=== PATIENT | female | born 1940 | race Caucasian/White ===

== ENCOUNTER 2016-07-21 20:50 | Inpatient (IN) | payer OTHER ==
[~2016-07-21] VITALS: Ht 157.5 cm; Wt 90.7 kg
[~2016-07-21 20:50] MED LIST: ALBU1AER9 INH; ANSHCCR PR; ASPI81TA28 PO; CALC-354 PO; CLBCRM30 EXT; FLUO20CA36 PO; LORA0.5T12 PO; SIMV40TA4 PO; SYMIN160 INH; TPRSR/50 PO; ZNT/150 PO
[2016-07-21] MEDS ORDERED: ALBU18002 INH (21:31)
[2016-07-21] MEDS ORDERED: CHOL2000 PO (21:31)
[2016-07-21] MEDS ORDERED: METHYLPREDNISOLONE 125 MG VIAL IV STA (22:10)
[2016-07-21] MEDS ORDERED: ALBUT/IPRATROP 3MG/0.5MG NEB 3 ML VIAL INH STA (22:10)
[2016-07-21] MEDS ORDERED: ALBUT/IPRATROP 3MG/0.5MG NEB 3 ML VIAL INH ONE (22:45)
[2016-07-21 22:46] LABS: BASO % 0.2 %; BASO ABS # 0.03 K/uL (0-0.2); COMPLETE YES; EOS % 0.4 %; HEMATOCRIT 39.9 % (37-47); IG% 0.2 %; LYMPH % 9.7 %; LYMPH ABS # 1.25 K/uL (1.2-3.4); MEAN CELL VOLUME 93.9 fL (80-100); MEAN CORPUSCULAR HEMOGLOBIN 31.5 pg (25-34); MEAN CORPUSCULAR HGB CONC 33.6 g/dl (32-36); MONO % 9.1 %; NEUT % 80.4 %; PLATELET COUNT 219 K/uL (130-400); RED BLOOD COUNT 4.25 M/uL (4.2-5.4); WHITE BLOOD COUNT 12.88 K/uL (4.8-10.8)
[2016-07-21 22:57] LABS: PARTIAL THROMBOPLASTIN RATIO 1.1; PROTHROMBIN TIME (PATIENT) 10.6 SECONDS (9.0-12.0)
--- NOTE | 2016-07-21 22:58 | DIAGNOSTIC IMAGING REPORT ---
CHEST ONE VIEW PORTABLE CLINICAL HISTORY: Sepsis COMPARISON STUDY: December 09, 2010 FINDINGS: The heart is mildly enlarged. There is mild elevation of the interstitium. This could be related to technical factors given the AP portable technique and the patient's body habitus. There is no lobar consolidation. If symptoms persist, a PA and lateral study might be of benefit in follow-up[ IMPRESSION: Mild interstitial prominence, a finding which may have been accentuated by technical factors.. No evidence of lobar consolidation Electronically signed by: Giovanni Casarez M.D. 07/21/2016 10:57 PM Dictated Date/Time: 07/21/2016 10:55 PM
[2016-07-21 23:02] VITALS: PULSE 88; O2SAT 91
[2016-07-21 23:03] LABS: BUN/CREATININE RATIO 20.9 (10-20); CALCIUM 8.9 mg/dl (8.5-10.1); POTASSIUM 4.1 mmol/L (3.5-5.1)
[2016-07-21] MEDS ORDERED: LEVAQUIN 750MG / 150ML D5W IV STA (23:03)
[2016-07-21 23:08] LABS: ALB/GLOB RATIO 0.9 (0.9-2); CKMB/CK RATIO 1.3 (0-3.0)
[2016-07-22] VITALS (11 sets, daily range): BP systolic 139–179; BP diastolic 56–81; PULSE 55–93; TEMP 36.4–36.7; O2SAT 94–98; Ht 157.5 cm; Wt 90.7 kg
[2016-07-22] MEDS ORDERED: DILTIAZEM HCL 5 MG/ML 5 ML VIAL ONE (00:19)
[2016-07-22] MEDS ORDERED: DILTIAZEM HCL 5 MG/ML 5 ML VIAL IV STA (00:20)
[2016-07-22] MEDS ORDERED: DILTIAZEM BOLUS / DRIP IV STA ×2 (00:35→01:55)
[2016-07-22] MEDS ORDERED: DILTIAZEM HCL INJ 125 MG in DEXTROSE 5% 100ML IV PRN ×2 (00:45→03:15)
[2016-07-22 00:53] LABS: URINE APPEARANCE CLOUDY (CLEAR); URINE BILIRUBIN NEG (NEG); URINE COLOR YELLOW; URINE EPITHELIAL CELL AUTO >30 /lpf (0-5); URINE NITRITE NEG (NEG); URINE SPECIFIC GRAVITY 1.025 (1.000-1.030); UROBILINOGEN NEG (NEG); ZZUR CULT IF INDIC CLEAN CATCH YES
[2016-07-22 01:00] LABS: MANUAL MICROSCOPIC REQUIRED? NO; REVIEW REQ? NO
[2016-07-22 01:19] LABS: INFLUENZA A PCR Neg for Influ A (NEG); INFLUENZA B PCR Neg for Influ B (NEG)
[2016-07-22] MEDS ORDERED: HYDROCODONE/HOMATROPINE SYRUP 5MG/1.5MG 5ML UDP PO STA (01:55)
[2016-07-22] MEDS ORDERED: HYDROCODONE/HOMATROPINE SYRUP 5MG/1.5MG 5ML UDP PO PRN (02:00)
[2016-07-22] MEDS ORDERED: ACETAMINOPHEN 500 MG TAB PO PRN (02:00)
[2016-07-22] MEDS: LEVALBUTEROL 1.25MG/3ML NEB INH SCH ×7 (03:00→23:44)
[2016-07-22] MEDS ORDERED: APIXABAN 2.5 MG TAB PO STA (03:10)
[2016-07-22] MEDS: METHYLPREDNISOLONE IV 20 MG in SYRINGE 0 ML IV SCH ×4 (03:53→20:52)
--- NOTE | 2016-07-22 04:30 | EMERGENCY ROOM VISIT NOTE ---
History First contact with patient: 22:02 Chief Complaint: RESPIRATORY PROBLEMS Stated Complaint: PAF, COPD WITH EXACERBATION, ACUTE BRONCHITIS, UTI Nursing Triage Summary: Increasing SOB over the last two days. History of Present Illness The patient is a 75 year old female who presents to the Emergency Room with complaints of cough, congestion, wheezing, shortness of breath with body aches and fever and chills for the past 2 days. Patient states she's extremely short of breath with any type of exertion. She does have asthma. No recent antibiotics. Patient denies chest pain, Abdominal pain, vomiting, diarrhea, headache, neck stiffness, sore throat. She is tolerating by mouth fluids and food. No history of CHF or [place]. Review of Systems See HPI for pertinent positives & negatives. A total of 10 systems reviewed and were otherwise negative. Past Medical/Surgical History Medical Problems: (1) PAF, COPD WITH EXACERGATION.,ACUTE BRONCHITIS,UTI Social History Smoking Status: Former Smoker Alcohol Use: none Drug Use: none Marital Status: single Housing Status: lives alone Current/Historical Medications Scheduled Albuterol Sulfate (Proair Respiclick), 2 PUFF INH DAILY Aspirin (Aspirin Ec), 81 MG PO DAILY Budesonide/Formoterol Fumarate (Symbicort 160/4.5 Inhaler), 2 PUFFS INH BID Calcium Carbonate-Cholecalcife (Caltrate 600+D), 2 TAB PO QAM Cholecalciferol (Vitamin D3), 1 CAP PO DAILY Fluoxetine HCl (Fluoxetine HCl), 1 CAP PO DAILY Metoprolol Succinate (Metoprolol Succinate ER), 1 TAB PO DAILY Ranitidine Hcl (Zantac), 150 MG PO DAILY Simvastatin (Zocor), 1 TAB PO HS Scheduled PRN Lorazepam (Lorazepam), 1 TAB PO BID PRN for Anxiety/Agitation Allergies Coded Allergies: Penicillins (Verified Allergy, Mild, GI SYMPTOMS, 07/21/16) Physical Exam Vital Signs Date Time Temp Pulse Resp B/P Pulse Ox O2 Delivery O2 Flow Rate FiO2 07/22/16 00:56 81 20 130/98 94 Nasal Cannula 3.0 07/22/16 00:26 135 22 140/71 94 Room Air 07/22/16 00:10 156 26 133/115 94 Nasal Cannula 3.0 07/22/16 00:01 89 Room Air 07/22/16 00:00 157 07/21/16 23:32 87 22 173/92 99 Nebulizer 8.0 07/21/16 23:02 88 22 91 Room Air 07/21/16 22:41 91 07/21/16 22:26 Room Air 07/21/16 20:55 37.0 86 22 191/84 91 Room Air Pain Rating (0-10): 0 Physical Exam PHYSICAL EXAM: Vital Signs: Reviewed Nurse's notes. Oxygen saturation was 91% on room air. GENERAL: Pleasant elderly female with audible wheeze, Alert, oriented and coherent. The patient is barely able to speak in complete sentences. NECK: Supple, non-tender. CHEST: Symmetrical expansion. no retractions mild accessory muscle use. HEART: Regular rate and normal heart sounds, no murmur, gallop or rub. LUNGS: Breath sounds equal but significantly diminished in intensity on both sides. Bilateral wheezes heard but no rales or pleuritic rub. SKIN: The skin was without rashes, erythema, edema, or bruising. There is no tenting of the skin. Capillary reflex less than 2 seconds. HEAD: Normocephalic atraumatic. EARS: External auditory canals clear, tympanic membranes pearly gomez without erythema or effusion bilaterally. EYES: Pupils equal round and reactive to light and accommodation. Conjunctivae without injection, sclerae without icterus. Extraocular movements intact. NOSE: Patent, turbinates without inflammation or discharge. No sinus tenderness. MOUTH: Mucous membranes moist. Tonsils are not enlarged. Pharynx without erythema or exudate. Uvula midline. Airway patent. Tongue does not deviate. ABDOMEN: Positive bowel sounds x 4. Normal tympanic percussion. Soft, nontender, without masses or organomegaly. Esparza sign negative. No guarding or rebound tenderness. MUSCULOSKELETAL: No muscle atrophy, erythema, noted. . NEURO: Patient was alert and oriented to person place and time. Normal sensation to light and sharp touch. No focal neurological deficits. Medical Decision & Procedures Laboratory Results 07/21/16 22:30 Red Blood Count 4.25, Mean Corpuscular Volume 93.9, Mean Corpuscular Hemoglobin 31.5, Mean Corpuscular Hemoglobin Concent 33.6, Mean Platelet Volume 11.0, Neutrophils (%) (Auto) 80.4, Lymphocytes (%) (Auto) 9.7, Monocytes (%) (Auto) 9.1, Eosinophils (%) (Auto) 0.4, Basophils (%) (Auto) 0.2, Neutrophils # (Auto) 10.35, Lymphocytes # (Auto) 1.25, Monocytes # (Auto) 1.17, Eosinophils # (Auto) 0.05, Basophils # (Auto) 0.03 07/21/16 22:30 Test 07/21/16 22:30 07/21/16 22:36 07/21/16 23:34 07/22/16 00:05 White Blood Count 12.88 K/uL (4.8-10.8) Red Blood Count 4.25 M/uL (4.2-5.4) Hemoglobin 13.4 g/dL (12.0-16.0) Hematocrit 39.9 % (37-47) Mean Corpuscular Volume 93.9 fL (80-100) Mean Corpuscular Hemoglobin 31.5 pg (25-34) Mean Corpuscular Hemoglobin Concent 33.6 g/dl (32-36) Platelet Count 219 K/uL (130-400) Mean Platelet Volume 11.0 fL (7.4-10.4) Neutrophils (%) (Auto) 80.4 % Lymphocytes (%) (Auto) 9.7 % Monocytes (%) (Auto) 9.1 % Eosinophils (%) (Auto) 0.4 % Basophils (%) (Auto) 0.2 % Neutrophils # (Auto) 10.35 K/uL (1.4-6.5) Lymphocytes # (Auto) 1.25 K/uL (1.2-3.4) Monocytes # (Auto) 1.17 K/uL (0.11-0.59) Eosinophils # (Auto) 0.05 K/uL (0-0.5) Basophils # (Auto) 0.03 K/uL (0-0.2) RDW Standard Deviation 50.0 fL (36.4-46.3) RDW Coefficient of Variation 14.6 % (11.5-14.5) Immature Granulocyte % (Auto) 0.2 % Immature Granulocyte # (Auto) 0.03 K/uL (0.00-0.02) Prothrombin Time 10.6 SECONDS (9.0-12.0) Prothromb Time International Ratio 1.0 (0.9-1.1) Activated Partial Thromboplast Time 28.0 SECONDS (21.0-31.0) Partial Thromboplastin Ratio 1.1 Anion Gap 10.0 mmol/L (3-11) Est Creatinine Clear Calc Drug Dose 49.6 ml/min Estimated GFR () 62.9 Estimated GFR (Non- 54.3 BUN/Creatinine Ratio 20.9 (10-20) Calcium Level 8.9 mg/dl (8.5-10.1) Magnesium Level 2.0 mg/dl (1.8-2.4) Total Bilirubin 0.4 mg/dl (0.2-1) Aspartate Amino Transf (AST/SGOT) 25 U/L (15-37) Alanine Aminotransferase (ALT/SGPT) 26 U/L (12-78) Alkaline Phosphatase 64 U/L (45-117) Total Creatine Kinase 121 U/L (26-192) Creatine Kinase MB 1.6 ng/ml (0.5-3.6) Creatine Kinase MB Ratio 1.3 (0-3.0) Troponin I 0.023 ng/ml (0-0.045) Pro-B-Type Natriuretic Peptide 2258 pg/ml (0-1800) Total Protein 7.4 gm/dl (6.4-8.2) Albumin 3.6 gm/dl (3.4-5.0) Globulin 3.8 gm/dl (2.5-4.0) Albumin/Globulin Ratio 0.9 (0.9-2) Bedside Lactic Acid Venous 0.86 mmol/L (0.90-1.70) Influenza Type A (RT-PCR) Neg for Influ A (NEG) Influenza Type B (RT-PCR) Neg for Influ B (NEG) Urine Color YELLOW Urine Appearance CLOUDY (CLEAR) Urine pH 5.0 (4.5-7.5) Urine Specific Gurley 1.025 (1.000-1.030) Urine Protein TRACE (NEG) Urine Glucose (UA) NEG (NEG) Urine Ketones TRACE (NEG) Urine Occult Blood TRACE (NEG) Urine Nitrite NEG (NEG) Urine Bilirubin NEG (NEG) Urine Urobilinogen NEG (NEG) Urine Leukocyte Esterase SMALL (NEG) Urine WBC (Auto) 10-30 /hpf (0-5) Urine RBC (Auto) 0-4 /hpf (0-4) Urine Hyaline Casts (Auto) 1-5 /lpf (0-5) Urine Epithelial Cells (Auto) >30 /lpf (0-5) Urine Bacteria (Auto) NEG (NEG) Medications Administered Medications (Trade) Dose Ordered Sig/Jackie Route Start Time Stop Time Status Last Admin Dose Admin Methylprednisolone Sodium Succinate (Solu-Medrol IV) 125 mg NOW STAT IV 07/21/16 22:10 07/21/16 22:12 DC 07/21/16 22:19 125 MG Albuterol/ Ipratropium (Duoneb) 3 ml NOW STAT INH 07/21/16 22:10 07/21/16 22:12 DC 07/21/16 22:19 3 ML Albuterol/ Ipratropium (Duoneb) 12 ml ONE ONCE INH 07/21/16 22:45 07/21/16 22:46 DC 07/21/16 23:02 12 ML Levofloxacin (Levaquin / D5W) 750 mg NOW STAT IV 07/21/16 23:03 07/21/16 23:05 DC 07/21/16 23:32 750 MG Diltiazem HCl (Cardizem Inj) 20 mg NOW STAT IV 07/22/16 00:20 07/22/16 00:21 DC 07/22/16 00:31 10 MG Hydrocodone Bit/ Homatropine Methylb (Hycodan Syrup) 5 ml NOW STAT PO 07/22/16 01:55 07/22/16 02:09 DC 07/22/16 02:38 5 ML ED Course Prior records/ancillary studies reviewed. Triage Nursing notes reviewed. Additional history obtained from the family. The patient's history was concerning for respiratory difficulties. Differential diagnosis: Etiologies such as infections, reactive airway disease, pneumonia, pneumothorax , COPD, CHF, cardiac ischemia, pulmonary embolism, musculoskeletal, gastrointestinal, as well as others were entertained. Physical examination: As above. ER treatment provided: IV Lasix, steroids, Levaquin, Cardizem On reassessment the patient felt better. Diagnostic interpretation by me: The electrocardiogram was negative for acute ischemic or pathologic change. Normal sinus, normal intervals, multiple PVCs, interpretation normal sinus rhythm with frequent PVCs interpreted by myself After the patient finished her nebulizer she went to an abnormal rhythm. EKG: Irregularly irregular with no acute ST-T changes. Impression atrial fibrillation with RVR After the Cardizem and the patient broke and went back to normal sinus rhythm. EKG showed normal sinus rhythm per my interpretation The labs revealed leukocytosis. Negative flu. Negative troponin Imaging studies: Chest x-ray as above. CHEST ONE VIEW PORTABLE CLINICAL HISTORY: Sepsis COMPARISON STUDY: December 09, 2010 FINDINGS: The heart is mildly enlarged. There is mild elevation of the interstitium. This could be related to technical factors given the AP portable technique and the patient's body habitus. There is no lobar consolidation. If symptoms persist, a PA and lateral study might be of benefit in follow-up[ IMPRESSION: Mild interstitial prominence, a finding which may have been accentuated by technical factors.. No evidence of lobar consolidation Electronically signed by: Giovanni Casarez M.D. 07/21/2016 10:57 PM Consultation: A consultation was placed with Dr. Bud Haque. The case was discussed and diagnostics were reviewed. The patient was evaluated in the ER for further treatment. This appears to be consistent with asthma exacerbation with bronchitis with possible developing pneumonia and was started on antibiotics who went into A. fib with RVR who broke with Cardizem. Patient will be evaluated by medicine for possible admission. Patient was still extremely short of breath. She is given several nebulizers and steroids. Her pulse ox is 89% on room air. Her heart rate did improve after the Cardizem. By the evaluation outlined above emergent etiologies such as CHF, cardiac ischemia, pulmonary embolism, pneumothorax, musculoskeletal, serious bacterial infections, as well as others were deemed relatively unlikely. The pt informed about the findings as listed above. All questions were answered and pleased with the treatment. Case reviewed with my attending Medical Decision As above Impression Primary Impression: Atrial fibrillation with RVR Additional Impression: Asthma exacerbation Critical Care I have personally spent greater than 30 minutes of critical care time in the direct management of this patient. This includes bedside care, interpretation of diagnostic studies, and testing, discussion with consultants, patient, and family members, and other required patient management activities. This 30 minutes is in excess of all separately billable procedures. Departure Information Dispostion Admitted as an inpatient Condition FAIR Referrals Tanner De Leon M.D. (PCP) Forms WORK / SCHOOL INSTRUCTIONS, HOME CARE DOCUMENTATION FORM, IMPORTANT VISIT INFORMATION Patient Instructions My [facility] Problem Qualifiers
[2016-07-22 06:19] LABS: BASO % 0.1 %; BASO ABS # 0.01 K/uL (0-0.2); COMPLETE YES; HEMATOCRIT 39.3 % (37-47); IG% 0.4 %; LYMPH % 6.8 %; LYMPH ABS # 0.58 K/uL (1.2-3.4); MEAN CELL VOLUME 94.2 fL (80-100); MEAN CORPUSCULAR HEMOGLOBIN 30.7 pg (25-34); MEAN CORPUSCULAR HGB CONC 32.6 g/dl (32-36); MONO % 0.9 %; NEUT % 91.8 %; PLATELET COUNT 208 K/uL (130-400); RED BLOOD COUNT 4.17 M/uL (4.2-5.4); WHITE BLOOD COUNT 8.57 K/uL (4.8-10.8)
[2016-07-22 06:49] LABS: CALCIUM 8.5 mg/dl (8.5-10.1); CREATININE 1.1 mg/dl (0.60-1.20); POTASSIUM 4.2 mmol/L (3.5-5.1)
[2016-07-22 06:51] LABS: ALB/GLOB RATIO 0.9 (0.9-2)
--- NOTE | 2016-07-22 07:14 | HISTORY & PHYSICAL EXAMINATION ---
DATE OF ADMISSION: 07/22/2016 A 75-year-old female admitted through the Emergency Room with multiple problems including atrial fibrillation with rapid ventricular response, acute bronchitis and acute exacerbation of obstructive lung disease. PRESENT ILLNESS: The patient with arterial hypertension, hyperlipidemia, anxiety and depression, gastroesophageal reflux and chronic obstructive pulmonary disease. She also has peripheral arterial disease. The patient has been sick at home for about 2 days prior to her admission. Most complaining of severe cough, shortness of breath and wheezing. She denied any fever. Denied any chills. She has been complaining of headache and pressure in her head and sinuses. Has been complaining of shortness of breath and wheezing. Coughing. Producing some phlegm at times. She had no associated nausea or vomiting or any diarrhea. Her shortness of breath became severe during the night and she was brought to the Emergency Room. She was evaluated. She was given IV medications including Levaquin and Solu-Medrol. She was also given high flow treatment with albuterol. That precipitated in atrial fibrillation with rapid ventricular response and a rate in the 130s. The patient was given IV Cardizem and she converted back to a sinus rhythm. I saw the patient in the Emergency Room and she was admitted for further treatment. PAST MEDICAL HISTORY: 1. Cervical polyp which was benign, removed back around 1982. . 2. Arterial hypertension. Has been treated since 2001. She is on Toprol XL. 3. Gastroesophageal reflux first noted in 1994. 4. Hypercholesterolemia, treated since 1990. 5. Anxiety, treated since 1995. 6. Depression, treated since 2001. 7. Hyperglycemia. Her blood sugars have been monitored. She has not required any drug therapy. She is careful with her diet. 8. Osteoporosis. Longstanding. Treated. 9. Chronic obstructive pulmonary disease. Moderate. Her last pulmonary function test was on 01/08/2014. 10. Peripheral arterial disease. Evaluated by Dr Tolbert. Had angiogram. No intervention recommended. SOCIAL HISTORY: She is a . She has no children. She has a history of smoking up to 1 pack per day for many years but not smoking currently. Denied any alcohol except on occasion. She does not have any excessive intake of coffee, tea or soft drinks. 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 FAMILY HISTORY: Her mother at the age of age 85. She of acute pancreatitis but she also had coronary artery disease and congestive heart failure and arthritis. Her father at age 80, had congestive heart failure and an unspecified liver problem. ALLERGIES: SHE DESCRIBES INTOLERANCE TO PENICILLIN WHICH CAUSED SOME VAGINAL IRRITATION AND INFECTION. MEDICATIONS ON ADMISSION: Were all as noted on her home medication list. REVIEW OF SYSTEMS: At this time, she is resting. She is still short of breath and wheezing. She is on oxygen. Denied any headache. She is complaining of nasal congestion. No chest pain. No shortness of breath at rest, but she is wheezing. No pain in her breasts. No abdominal pain, no nausea, no vomiting. No problem with her bowel movements. No problem urinating. No pain in her back or extremities. PHYSICAL EXAMINATION: GENERAL: Well developed, in no acute distress. VITAL SIGNS: Blood pressure 130/98, pulse 81, respiration 20, temperature 37, oxygen saturation 94% on 3 liter oxygen by nasal cannula. SKIN: Warm and dry. No rash. HEENT: Oxygen cannula in place. No mucosal abnormalities in her nose, mouth or throat. NECK: Supple without adenopathy or thyromegaly. No JVD. Normal carotid pulses. No carotid bruit. HEART: Regular heart sounds. No evident murmur, rub, or gallop. LUNGS: Bilateral diffuse wheezing. ABDOMEN: Soft, nontender, without organomegaly or masses. BACK: No spinal tenderness. EXTREMITIES: No edema, clubbing, or cyanosis. No joint or muscle tenderness. Absent pedal pulses. NEUROLOGICAL EXAMINATION: She is alert and oriented. There is no evidence of any deficit. LABORATORY TESTS: WBC count 12,880, hemoglobin 13.4, hematocrit 39.9, platelet count 219,000. Prothrombin time 10.6, INR 1.0, PTT 28. Sodium 140, potassium 4.1, chloride 105, CO2 25, BUN 21, creatinine 1.0, glucose 116, lactic acid 0.86, calcium 8.9, magnesium 2.0, AST 25, ALT 26, alkaline phosphatase 64, total CK 121, MB fraction 1.6, troponin I is .023. ProBNP 2258, total protein 7.4, albumin 3.6, globulin 3.8. Her urine showing small leukocyte esterase with 10-30 WBCs per high power field. Her chest x-ray showed mild interstitial prominence. No evidence of any consolidation. Her electrocardiogram, the first one showed a sinus rhythm without any acute changes. Second electrocardiogram showing the atrial fibrillation with rapid ventricular response. Another EKG done after the episode of atrial fibrillation showed a regular sinus rhythm. ASSESSMENT: 1. Acute bronchitis. 2. Acute exacerbation of chronic obstructive pulmonary disease. 3. Paroxysmal atrial fibrillation with rapid ventricular response occurred after albuterol treatment. 4. Urinary tract infection. 5. Arterial hypertension. 6. Hyperlipidemia. 7. Hyperglycemia. 8. Anxiety and depression. 9. Gastroesophageal reflux. 10. Osteoporosis. 11. Peripheral arterial disease PLAN: The patient is admitted to PCU with telemetry. Resuscitation level 1. All her laboratory tests were ordered. Initially, the patient was given IV Cardizem. An infusion at 10 mg per hour was ordered, but she did convert to sinus rhythm and I discovered that the infusion was never started so I discontinued the order for the continuous infusion. An echocardiogram was ordered. She was continued on IV Levaquin, IV Solu-Medrol and given Xopenex treatment high flow. The plan is to monitor her rhythm and see if she goes back in atrial fibrillation. In the meantime, I did start her on Eliquis. If she remains in a sinus rhythm given the fact that the episode of atrial fibrillation was induced by the albuterol and it was very short lasting I will discontinue the Eliquis. I will restart her on her metoprolol as she was taking prior to her admission. Her condition will be monitored. We will treat her infection and exacerbation of her lung disease and decide on any further treatment. LUPE
[2016-07-22] MEDS ORDERED: PERFLUTREN LIPID MICROSPHERE (DEFINITY) IV ONE (07:33)
[2016-07-22] MEDS: APIXABAN 2.5 MG TAB PO SCH ×2 (07:34→20:51)
[2016-07-22] MEDS: ASPIRIN 81 MG ECTAB PO SCH (07:35)
[2016-07-22] MEDS: BUDESONIDE/FORMOTEROL FUMARATE 160/4.5 60 PUFFS/INHALER INH SCH ×2 (07:35→20:50)
[2016-07-22] MEDS: FLUOXETINE HCL 20 MG CAP PO SCH (07:35)
[2016-07-22] MEDS ORDERED: PNEUMOCOCCAL POLYSACCHARIDES 25 MCG/0.5 ML VIAL/SYR IM. ONE (08:00)
[2016-07-22] MEDS ORDERED: PNEUMOCOCCAL ADMINISTRATION CHARGE ONE (08:00)
[2016-07-22] MEDS ORDERED: METOPROLOL SUCC 50MG EXT REL TAB PO SCH (09:00)
[2016-07-22] MEDS: RANITIDINE HCL 150 MG TAB PO SCH ×2 (09:03→20:51)
[2016-07-22] MEDS: LOSARTAN POTASSIUM 25 MG TAB PO SCH (09:47)
[2016-07-22] MEDS: SOTALOL HCL 80 MG TAB PO SCH ×2 (09:47→20:50)
[2016-07-22] MEDS ORDERED: NURSING VERBAL MED ORDER ONE (12:00)
[2016-07-22] MEDS ORDERED: FUROSEMIDE INJ 40 MG in SYRINGE 0 ML IV SCH (12:00)
--- NOTE | 2016-07-22 13:52 | ECHOCARDIOGRAM REPORT ---
*NOTICE TO RECEIVING [employer] This information is strictly Confidential and protected under [place] law. [place] law prohibits you from making any further disclosure of this information unless further disclosure is expressly permitted by the written consent of the person to whom it pertains or is authorized by law. A general authorization for the release of medical or other information is not sufficient for this purpose. Hospital accepts no responsibility if the information is made available to any other person, INCLUDING THE PATIENT. Interpretation Summary * Name: KASHMIR BHATIA Study Date: 07/22/2016 07:51 AM BP: 144/62 mmHg * Patient Location: C.2T\S\S229\S\1 HR: 81 * : 1940 (M/d/yyyy) Gender: Female Height: 62 in * Age: 75 yrs Ethnicity: CA Weight: 201 lb * Ordering Physician: Tanner De Leon * Referring Physician: Self, Referred * Performed By: Glenda Berry RDCS * * Reason For Study: AFIB * BSA: 1.9 m2 * History: AFIB * -- Conclusions -- * Left ventricular systolic function is normal. * No regional wall motion abnormalities noted. * Ejection Fraction = 55-60%. * There is borderline concentric left ventricular hypertrophy. * There is mild tricuspid regurgitation. Procedure Details * A contrast injection of Definity was performed to improve assessment of LV function. * Contrast was injected into an intravenous site in the right arm. * One vial of Definity ultrasound contrast was diluted in normal saline to a total volume of 10 ml. A total of '2' ml of solution was administered during imaging. * Lot # [id number] of Definity utilized for procedure. * Expiration date MAY 26. * The attending nurse who injected the contrast agent was DUKE MORALES RN. Left Ventricle * The left ventricle is normal in size. * There is borderline concentric left ventricular hypertrophy. * Ejection Fraction = 55-60%. * Left ventricular systolic function is normal. * No regional wall motion abnormalities noted. Right Ventricle * The right ventricle is not well visualized. * The right ventricular systolic function is normal as assessed by tricuspid annular plane systolic excursion (TAPSE) (normal >1.5 cm). Atria * Borderline left atrial enlargement. * Right atrial size is normal. * There is no evidence of atrial septal defect, but resolution does not allow assessment for a patent foramen ovale. Mitral Valve * The mitral valve is grossly normal. * There is no mitral valve stenosis. * Significant mitral regurgitation is absent. Tricuspid Valve * The tricuspid valve is not well visualized, but is grossly normal. * There is mild tricuspid regurgitation. Aortic Valve * The aortic valve is not well visualized. Pulmonic Valve * The pulmonic valve is not well visualized. Great Vessels * The aortic root is normal size. * The pulmonary is not well visualized. Pericardium/Pleural * There is no pericardial effusion. Great Vessels * Dilated inferior vena cava with reduced collapsability with sniff indicates an elevated right atrial pressure of 15 mmHg MMode 2D Measurements and Calculations IVSd 0.84 cm IVSs 1.4 cm LVIDd 4.1 cm LVIDs 3.0 cm LVPWd 1.1 cm LVPWs 1.6 cm IVS/LVPW 0.74 FS 27.7 % EDV(Teich) 74.9 ml ESV(Teich) 34.3 ml EF(Teich) 54.2 % EDV(cubed) 69.8 ml ESV(cubed) 26.3 ml EF(cubed) 62.2 % % IVS thick 68.4 % % LVPW thick 39.5 % LV mass(C)d 131.0 grams LV mass(C)dI 68.5 grams/m\S\2 LV mass(C)s 156.6 grams LV mass(C)sI 81.8 grams/m\S\2 SV(Teich) 40.6 ml SI(Teich) 21.2 ml/m\S\2 SV(cubed) 43.4 ml SI(cubed) 22.7 ml/m\S\2 Ao root diam 2.7 cm Ao root area 5.9 cm\S\2 LA dimension 3.7 cm LA/Ao 1.4 LVAd ap4 20.7 cm\S\2 LVLd ap4 6.5 cm EDV(MOD-sp4) 52.9 ml EDV(sp4-el) 55.5 ml LVAs ap4 12.9 cm\S\2 LVLs ap4 6.0 cm ESV(MOD-sp4) 24.4 ml ESV(sp4-el) 23.5 ml EF(MOD-sp4) 53.9 % EF(sp4-el) 57.7 % LVAd ap2 24.8 cm\S\2 LVLd ap2 7.3 cm EDV(MOD-sp2) 67.6 ml EDV(sp2-el) 71.7 ml LVAs ap2 15.0 cm\S\2 LVLs ap2 6.4 cm ESV(MOD-sp2) 28.3 ml ESV(sp2-el) 29.6 ml EF(MOD-sp2) 58.2 % EF(sp2-el) 58.7 % LVLd %diff 10.0 % EDV(MOD-bp) 63.0 ml LVLs %diff 7.1 % ESV(MOD-bp) 27.1 ml EF(MOD-bp) 57.1 % SV(MOD-sp4) 28.5 ml SI(MOD-sp4) 14.9 ml/m\S\2 SV(MOD-sp2) 39.3 ml SI(MOD-sp2) 20.5 ml/m\S\2 SV(MOD-bp) 36.0 ml SI(MOD-bp) 18.8 ml/m\S\2 SV(sp4-el) 32.1 ml SI(sp4-el) 16.8 ml/m\S\2 SV(sp2-el) 42.1 ml SI(sp2-el) 22.0 ml/m\S\2 Doppler Measurements and Calculations MV E max ronan 115.4 cm/sec MV dec time 0.18 sec Ao V2 max 145.8 cm/sec Ao max PG 8.5 mmHg Ao max PG (full) 5.4 mmHg LV V1 max PG 3.1 mmHg LV V1 max 87.6 cm/sec TR max ronan 275.9 cm/sec
--- NOTE | 2016-07-22 18:34 | PROGRESS NOTE ---
DATE: 07/22/2016 A 75-year-old female, admitted with multiple medical problems includin. Acute bronchitis. 2. Acute exacerbation of chronic obstructive pulmonary disease. 3. Paroxysmal atrial fibrillation. 4. Urinary tract infection. 5. Arterial hypertension. 6. Anxiety and depression. 7. Peripheral arterial disease. The patient was admitted to PCU. She was given IV Cardizem in the Emergency Room. She converted back to sinus rhythm. No continuous infusion was started after that. Early this morning, she went back into atrial fibrillation and she was started back on Cardizem 10 mg per hour IV, but her heart rate came down to the 60s and her rate of diltiazem was cut down to 5 mg per hour. The patient continues to feel short of breath, wheezing. Denied any headache. No dizziness. Denied any chest pain. She is dyspneic. Tachypneic. No abdominal pain, no nausea, no vomiting. No pain in her back or extremities. PHYSICAL EXAMINATION: GENERAL: Well-developed, in no distress. VITAL SIGNS: Blood pressure 179/74, pulse 81, respiration 18, temperature 36.6 and oxygen saturation 94% on 2 liters oxygen by nasal cannula. SKIN: Warm and dry. No rash. HEENT: No mucosal abnormality. NECK: No JVD. No adenopathy. HEART: Regular heart sounds. LUNGS: Bilateral diffuse wheezing. ABDOMEN: Obese, soft, nontender. BACK: No spinal tenderness. EXTREMITIES: Minimal edema. No clubbing or cyanosis. TODAY'S LABORATORY TESTS: WBC count 8570, hemoglobin 12.8, hematocrit 39.3, platelet count 208,000. Sodium 139, potassium 4.2, chloride 101, CO2 24, BUN 22, creatinine 1.1, glucose 164, calcium 8.5, total bilirubin 0.4, AST 17, ALT 26, alkaline phosphatase 63, total protein 7.3, albumin 3.4. The patient also had an echocardiogram done today. She had a left ventricular systolic function which was normal with an ejection fraction between 55% and 60%. No wall motion abnormalities were noted. No significant valvular heart disease. ASSESSMENT: 1. Acute bronchitis. 2. Acute exacerbation of chronic lung disease. 3. Paroxysmal atrial fibrillation. 4. Arterial hypertension. 5. Peripheral arterial disease. PLAN: 1. I started her this morning on sotalol 80 mg twice a day. 2. She is on Eliquis 5 mg twice a day. 3. Continuing her other medications unchanged. 4. Also, she was started on Cozaar 25 mg daily. 5. She is on high-flow treatment with Xopenex every 6 hours and I changed it this morning to every 4 hours because she was having persistent wheezing. 6. Also because of her wheezing and shortness of breath, I gave her a dose of furosemide 40 mg IV. 7. We will continue close monitoring of her condition. 8. Continue her medications.
[2016-07-22] MEDS: SIMVASTATIN 40 MG TAB PO SCH (20:51)
[2016-07-22] MEDS: LEVOFLOXACIN / D5W 500 MG in PREMIXED IN D5W 100 ML IV SCH (22:12)
[2016-07-22] MEDS: LORAZEPAM 0.5 MG TAB PO PRN (23:54)
[2016-07-23] VITALS (13 sets, daily range): BP systolic 134–172; BP diastolic 66–83; PULSE 53–76; TEMP 35.8–36.9; O2SAT 92–97
[2016-07-23] MEDS: LEVALBUTEROL 1.25MG/3ML NEB INH SCH ×6 (03:23→23:28)
[2016-07-23] MEDS: METHYLPREDNISOLONE IV 20 MG in SYRINGE 0 ML IV SCH ×2 (04:32→10:18)
[2016-07-23 06:34] LABS: COMPLETE YES; IG% 0.2 %; LYMPH % 8.5 %; LYMPH ABS # 0.93 K/uL (1.2-3.4); MEAN CELL VOLUME 95.6 fL (80-100); MEAN CORPUSCULAR HEMOGLOBIN 31.6 pg (25-34); MEAN CORPUSCULAR HGB CONC 33.1 g/dl (32-36); MEAN PLATELET VOLUME 11.3 fL (7.4-10.4); MONO % 8.8 %; NEUT % 82.5 %; PLATELET COUNT 209 K/uL (130-400); RED BLOOD COUNT 4.08 M/uL (4.2-5.4); WHITE BLOOD COUNT 10.89 K/uL (4.8-10.8)
[2016-07-23 07:09] LABS: BUN/CREATININE RATIO 26.7 (10-20); CALCIUM 8.5 mg/dl (8.5-10.1); CREATININE 1.3 mg/dl (0.60-1.20); POTASSIUM 4.2 mmol/L (3.5-5.1)
[2016-07-23] MEDS: LOSARTAN POTASSIUM 25 MG TAB PO SCH (07:54)
[2016-07-23] MEDS: SOTALOL HCL 80 MG TAB PO SCH (07:54)
[2016-07-23] MEDS: BUDESONIDE/FORMOTEROL FUMARATE 160/4.5 60 PUFFS/INHALER INH SCH ×2 (07:54→20:44)
[2016-07-23] MEDS: RANITIDINE HCL 150 MG TAB PO SCH ×2 (07:55→20:44)
[2016-07-23] MEDS: APIXABAN 2.5 MG TAB PO SCH ×2 (07:55→20:44)
[2016-07-23] MEDS: ASPIRIN 81 MG ECTAB PO SCH (07:55)
[2016-07-23] MEDS: FLUOXETINE HCL 20 MG CAP PO SCH (07:55)
--- NOTE | 2016-07-23 09:06 | DIAGNOSTIC IMAGING REPORT ---
CHEST 2 VIEWS ROUTINE CLINICAL HISTORY: Dyspnea. Acute bronchitis. COMPARISON STUDY: 07/21/2016 FINDINGS: The heart is normal in size. There is mild interstitial thickening. There is no lobar consolidation. There are no pleural effusions.[ IMPRESSION: Mild interstitial thickening. No evidence of lobar consolidation Electronically signed by: Giovanni Casarez M.D. 07/23/2016 9:04 AM Dictated Date/Time: 07/23/2016 9:03 AM
[2016-07-23] MEDS ORDERED: METHYLPREDNISOLONE IV 20 MG in SYRINGE 0 ML IV ONE (11:00)
[2016-07-23] MEDS: MAGNESIUM SULFATE 1GM / D5W 1 GM in PREMIXED IN D5W 100 ML IV SCH ×2 (11:27→14:03)
[2016-07-23] MEDS: METHYLPREDNISOLONE IV 40 MG in SYRINGE 0 ML IV SCH (17:45)
--- NOTE | 2016-07-23 19:38 | PROGRESS NOTE ---
DATE: 07/23/2016 A 75-year-old female, admitted with: 1. Acute bronchitis. 2. Acute exacerbation of her chronic lung disease. 3. Paroxysmal atrial fibrillation. 4. Arterial hypertension. 5. Peripheral arterial disease. The patient was admitted. All her laboratory tests were ordered. She was started on IV Levaquin. Also IV Solu-Medrol and given Xopenex high-flow treatments. Her condition is improving, but very slowly. She still has significant amount of wheezing. She is on oxygen between 2 and 3 liters. Her oxygen saturation is quite adequate on the oxygen flow. She denied any headache. No dizziness. No chest pain. She does get tachypneic at times. No nausea, no vomiting. No problem with her bowel movements. No problem urinating. No pain in her back or extremities. PHYSICAL EXAMINATION: GENERAL: Well-developed, in no distress. VITAL SIGNS: Blood pressure 134/73, pulse 61, respiration 24, temperature 36.8 and oxygen saturation 96% on 3 liters oxygen by nasal cannula. SKIN: Warm and dry. No rash. HEENT: Oxygen cannula in place. No mucosal abnormality. NECK: No JVD, no adenopathy. HEART: Regular heart sounds. LUNGS: Wheezing bilaterally. ABDOMEN: Soft and benign. BACK: No spinal tenderness. EXTREMITIES: No edema, clubbing or cyanosis. TODAY'S LABORATORY TESTS: WBC count 10,890, hemoglobin 12.9, hematocrit 39, platelet count 209,000. Sodium 136, potassium 4.2, chloride 98, CO2 27, BUN 35, creatinine 1.3, glucose 132 and calcium 8.4. Her urine culture is showing pinpoint growth and it was re-incubated. Repeat chest x-ray, PA and lateral which was done this morning showed no evidence of any infiltrate. No evidence of any congestive heart failure. ASSESSMENT: 1. Acute bronchitis. 2. Acute exacerbation of chronic lung disease. 3. Paroxysmal atrial fibrillation. 4. Arterial hypertension. 5. Urinary tract infection. PLAN: 1. She was given an additional dose of Solu-Medrol this morning and I increased the dose to 40 mg every six hours. 2. Also, because of the severity of the wheezing she was given 2 grams of IV magnesium. 3. Continuing all her medications otherwise. 4. Urine culture is pending. 5. We will try to increase her activity as tolerated, but at this point she gets very short of breath and still wheezing. 6. Her monitor did not show any recurrence of her atrial fibrillation. She is on sotalol. Her heart rate during the night did drop in the 40s and we will decrease her sotalol to 40 mg every eight hours instead of 80 mg every twelve hours.
[2016-07-23] MEDS: SIMVASTATIN 40 MG TAB PO SCH (20:44)
[2016-07-23] MEDS ORDERED: SODIUM CHLORIDE 0.65% NA SOLN 45 ML (OCEAN) ONE (20:51)
[2016-07-23] MEDS ORDERED: SODIUM CHLORIDE 0.65% NA SOLN 45 ML (OCEAN) PRN (21:00)
[2016-07-23] MEDS ORDERED: NURSING DECISION MEDICATION ORDER SCH (21:00)
[2016-07-23] MEDS: LORAZEPAM 0.5 MG TAB PO PRN (21:59)
[2016-07-23] MEDS: LEVOFLOXACIN / D5W 500 MG in PREMIXED IN D5W 100 ML IV SCH (22:03)
[2016-07-24] VITALS (13 sets, daily range): BP systolic 157–179; BP diastolic 51–83; PULSE 52–74; TEMP 36.4–36.7; O2SAT 92–96
[2016-07-24] MEDS: METHYLPREDNISOLONE IV 40 MG in SYRINGE 0 ML IV SCH ×5 (00:15→23:35)
[2016-07-24] MEDS: SOTALOL HCL 80 MG TAB PO SCH ×2 (00:15→08:07)
[2016-07-24] MEDS: LEVALBUTEROL 1.25MG/3ML NEB INH SCH ×6 (03:50→23:40)
[2016-07-24 06:45] LABS: BASO % 0.1 %; BASO ABS # 0.01 K/uL (0-0.2); COMPLETE YES; HEMATOCRIT 40.3 % (37-47); IG% 0.3 %; LYMPH % 9.6 %; LYMPH ABS # 1.16 K/uL (1.2-3.4); MEAN CORPUSCULAR HEMOGLOBIN 31.6 pg (25-34); MEAN CORPUSCULAR HGB CONC 33.3 g/dl (32-36); MEAN PLATELET VOLUME 11.4 fL (7.4-10.4); MONO % 6.1 %; NEUT % 83.9 %; PLATELET COUNT 210 K/uL (130-400); RED BLOOD COUNT 4.24 M/uL (4.2-5.4); WHITE BLOOD COUNT 12.13 K/uL (4.8-10.8)
[2016-07-24 07:15] LABS: BUN/CREATININE RATIO 34.5 (10-20); CALCIUM 8.6 mg/dl (8.5-10.1); CREATININE 1.2 mg/dl (0.60-1.20); POTASSIUM 4.4 mmol/L (3.5-5.1)
[2016-07-24] MEDS: LOSARTAN POTASSIUM 25 MG TAB PO SCH (08:08)
[2016-07-24] MEDS: ASPIRIN 81 MG ECTAB PO SCH (08:08)
[2016-07-24] MEDS: BUDESONIDE/FORMOTEROL FUMARATE 160/4.5 60 PUFFS/INHALER INH SCH ×2 (08:08→21:15)
[2016-07-24] MEDS: APIXABAN 2.5 MG TAB PO SCH ×2 (08:09→21:16)
[2016-07-24] MEDS: RANITIDINE HCL 150 MG TAB PO SCH ×2 (08:09→21:16)
[2016-07-24] MEDS: FLUOXETINE HCL 20 MG CAP PO SCH (08:09)
[2016-07-24] MEDS ORDERED: MAGNESIUM SULFATE 1GM / D5W 1 GM in PREMIXED IN D5W 100 ML IV ONE (11:00)
[2016-07-24] MEDS: DILTIAZEM HCL 60 MG TAB PO SCH ×2 (13:42→21:15)
--- NOTE | 2016-07-24 16:56 | PROGRESS NOTE ---
DATE: 07/24/2016 SUBJECTIVE: A 75-year-old female admitted with: 1. Acute bronchitis. 2. Acute exacerbation of chronic lung disease. 3. Paroxysmal atrial fibrillation with rapid ventricular response. 4. Urinary tract infection. The patient was admitted. All her labs were ordered. She was started on IV Cardizem initially given 2 boluses in the Emergency Room. She converted back to sinus rhythm. The episode of atrial fibrillation was precipitated by albuterol high flow treatment. The patient is still complaining of shortness of breath. She is wheezing. She denied any headache or dizziness. No chest pain. She does get dyspneic with activity. No nausea, no vomiting. No problem with her bowel movements or urination. PHYSICAL EXAMINATION: GENERAL: Well developed in no distress. VITAL SIGNS: Blood pressure 179/78, pulse 71, respirations 18, temperature 36.6, oxygen saturation 92% on room air. SKIN: Warm and dry. No rash. HEENT: No mucosal abnormality. NECK: No JVD. No adenopathy. HEART: Regular heart sounds. LUNGS: Diffuse wheezing bilaterally. ABDOMEN: Soft, nontender. BACK: No spinal tenderness. EXTREMITIES: No edema, clubbing, or cyanosis. LABORATORY DATA: Today's laboratory tests WBC count 12,130, hemoglobin 13.4, hematocrit 40.3, platelet count 210,000. Sodium 136, potassium 4.4, chloride 100, CO2 of 28, BUN 41, creatinine 1.2, glucose 141, calcium 8.6. ASSESSMENT: 1. Acute bronchitis. 2. Acute exacerbation of chronic lung disease. 3. Obstructive chronic lung disease. 4. Atrial fibrillation with rapid ventricular response. PLAN: 1. Because of the persistent wheezing I discontinued her sotalol and started on Cardizem orally. Will start with 60 mg every 8 hours. Will later adjust the dose and eventually switch to the long-acting form. 2. She was given 1 dose of magnesium sulfate 1 gram intravenously. 3. Continuing all her other medications. 4. Her respiratory status is being monitored. Even though she is having significant amount of wheezing, her oxygen saturation has improved and at times she is able to go without her oxygen.
[2016-07-24] MEDS: SIMVASTATIN 40 MG TAB PO SCH (21:16)
[2016-07-24] MEDS: LORAZEPAM 0.5 MG TAB PO PRN (22:33)
[2016-07-24] MEDS: LEVOFLOXACIN / D5W 500 MG in PREMIXED IN D5W 100 ML IV SCH (22:40)
[2016-07-25] VITALS (15 sets, daily range): BP systolic 130–182; BP diastolic 63–77; PULSE 58–70; TEMP 36.4–36.9; O2SAT 90–96
[2016-07-25] MEDS: LEVALBUTEROL 1.25MG/3ML NEB INH SCH ×6 (03:19→23:16)
[2016-07-25] MEDS: METHYLPREDNISOLONE IV 40 MG in SYRINGE 0 ML IV SCH ×3 (06:07→20:04)
[2016-07-25] MEDS: ASPIRIN 81 MG ECTAB PO SCH (08:19)
[2016-07-25] MEDS: BUDESONIDE/FORMOTEROL FUMARATE 160/4.5 60 PUFFS/INHALER INH SCH ×2 (08:19→21:17)
[2016-07-25] MEDS: DILTIAZEM HCL 60 MG TAB PO SCH ×3 (08:20→19:24)
[2016-07-25] MEDS: RANITIDINE HCL 150 MG TAB PO SCH ×2 (08:20→19:25)
[2016-07-25] MEDS: FLUOXETINE HCL 20 MG CAP PO SCH (08:20)
[2016-07-25] MEDS: APIXABAN 2.5 MG TAB PO SCH ×2 (08:20→19:24)
[2016-07-25] MEDS: LOSARTAN POTASSIUM 50 MG TAB PO SCH (09:23)
[2016-07-25] MEDS ORDERED: NURSING VERBAL MED ORDER ONE (17:30)
[2016-07-25] MEDS: HydrALAZINE HCL 20 MG/ML VIAL IV. PRN (17:53)
[2016-07-25] MEDS: SIMVASTATIN 40 MG TAB PO SCH (19:25)
[2016-07-25] MEDS: LEVOFLOXACIN / D5W 500 MG in PREMIXED IN D5W 100 ML IV SCH (22:18)
[2016-07-25] MEDS: LORAZEPAM 0.5 MG TAB PO PRN (22:18)
--- NOTE | 2016-07-25 23:18 | PROGRESS NOTE ---
DATE: 07/25/2016 HISTORY OF PRESENT ILLNESS: A 75-year-old female admitted with acute bronchitis and exacerbation of her chronic lung disease, paroxysmal atrial fibrillation with rapid ventricular response and arterial hypertension. The patient is on IV antibiotics. She is also on IVs Solu-Medrol. For her atrial fibrillation, initially she was given 2 boluses of Cardizem and she converted to sinus rhythm. Subsequently, she had recurrent episodes and she was placed on sotalol which controlled her atrial fibrillation quite well, but unfortunately her wheezing has increased, so her sotalol was discontinued and she was placed on oral Cardizem. Her condition is gradually improving. She is still dyspneic. Still with wheezing, but her wheezing has improved. She is able to be without oxygen. She denied any headache or dizziness. No chest pain. She does get dyspneic with any activity, even moving around in her bed. No abdominal pain, no nausea, no vomiting. No problem with her bowel movements or urination. No swelling in her ankles. PHYSICAL EXAMINATION: GENERAL: Well developed, in no distress. VITAL SIGNS: Blood pressure 179/75, pulse 59, respirations 20, temperature 36.5, oxygen saturation 91% on room air. SKIN: Warm and dry. No rash. HEENT: No mucosal abnormality. NECK: No JVD. No adenopathy. HEART: Regular heart sounds. LUNGS: Bilateral diffuse wheezing but much improved. ABDOMEN: Soft, nontender. BACK: No spinal tenderness. EXTREMITIES: No edema, clubbing, or cyanosis. ASSESSMENT: 1. Acute bronchitis. 2. Acute exacerbation of chronic obstructive lung disease. 3. History of smoking. 4. Paroxysmal atrial fibrillation with rapid ventricular response. 5. Arterial hypertension. PLAN: 1. She was given one dose of IV magnesium 1 gram today. 2. Continue oral Cardizem. 3. Added hydralazine for blood pressure elevation. 4. We will try to get her out of bed. 5. She is on Solu-Medrol 40 mg every 6 hours now. We will continue the current dose. 6. From a cardiac standpoint, she has not had recurrent episodes of atrial fibrillation. Her rate and rhythm are controlled with the Cardizem. 7. We will monitor her respiratory status. 8. We will decide whether she is ready to have any rehab stay after her acute hospitalization.
[2016-07-26] VITALS (14 sets, daily range): BP systolic 154–175; BP diastolic 63–79; PULSE 63–83; TEMP 36.4–36.7; O2SAT 90–96
[2016-07-26] MEDS: METHYLPREDNISOLONE IV 40 MG in SYRINGE 0 ML IV SCH ×5 (00:29→23:31)
[2016-07-26] MEDS: LEVALBUTEROL 1.25MG/3ML NEB INH SCH ×6 (03:13→23:24)
[2016-07-26] MEDS: HydrALAZINE HCL 20 MG/ML VIAL IV. PRN ×3 (04:32→23:38)
[2016-07-26] MEDS ORDERED: AMLODIPINE BESYLATE 5 MG TAB PO ONE (07:30)
[2016-07-26 07:49] LABS: BASO % 0.1 %; BASO ABS # 0.01 K/uL (0-0.2); COMPLETE YES; HEMATOCRIT 44.7 % (37-47); IG% 0.7 %; LYMPH % 6.1 %; LYMPH ABS # 0.98 K/uL (1.2-3.4); MEAN CELL VOLUME 94.3 fL (80-100); MEAN CORPUSCULAR HEMOGLOBIN 31.2 pg (25-34); MEAN CORPUSCULAR HGB CONC 33.1 g/dl (32-36); MEAN PLATELET VOLUME 11.6 fL (7.4-10.4); MONO % 5.2 %; NEUT % 87.9 %; PLATELET COUNT 239 K/uL (130-400); RED BLOOD COUNT 4.74 M/uL (4.2-5.4); WHITE BLOOD COUNT 16.06 K/uL (4.8-10.8)
[2016-07-26 08:15] LABS: BUN/CREATININE RATIO 30.1 (10-20); CALCIUM 8.7 mg/dl (8.5-10.1); CREATININE 1.1 mg/dl (0.60-1.20); POTASSIUM 4.4 mmol/L (3.5-5.1)
[2016-07-26] MEDS: BUDESONIDE/FORMOTEROL FUMARATE 160/4.5 60 PUFFS/INHALER INH SCH ×2 (08:27→21:22)
[2016-07-26] MEDS: FLUOXETINE HCL 20 MG CAP PO SCH (08:28)
[2016-07-26] MEDS: DILTIAZEM HCL 60 MG TAB PO SCH ×3 (08:28→21:23)
[2016-07-26] MEDS: RANITIDINE HCL 150 MG TAB PO SCH ×2 (08:29→21:23)
[2016-07-26] MEDS: LOSARTAN POTASSIUM 50 MG TAB PO SCH ×2 (08:29→21:24)
[2016-07-26] MEDS: ASPIRIN 81 MG ECTAB PO SCH (08:29)
[2016-07-26] MEDS: APIXABAN 2.5 MG TAB PO SCH ×2 (09:12→21:24)
[2016-07-26] MEDS: SIMVASTATIN 40 MG TAB PO SCH (21:23)
[2016-07-26] MEDS: ZAFIRLUKAST TAB 20 MG TAB PO SCH (21:42)
[2016-07-26] MEDS: LORAZEPAM 0.5 MG TAB PO PRN (23:31)
[2016-07-26] MEDS: LEVOFLOXACIN / D5W 500 MG in PREMIXED IN D5W 100 ML IV SCH (23:31)
[2016-07-27] VITALS (14 sets, daily range): BP systolic 95–168; BP diastolic 60–77; PULSE 72–148; TEMP 36.4–36.5; O2SAT 93–97
--- NOTE | 2016-07-27 01:15 | PROGRESS NOTE ---
DATE: 07/26/2016 A 75-year-old female admitted with acute bronchitis and acute exacerbation of her chronic lung disease and also atrial fibrillation with rapid ventricular response. She also has arterial hypertension. Her atrial fibrillation has been under control. She is now on oral Cardizem. Had to discontinue all her beta blockers because of bronchospasm related to her lung disease and acute exacerbation of her lung disease. She denied any headache. No dizziness, no lightheadedness. No chest pain. She still gets dyspneic very easily with any activity. I walked her very short distance in the unit this evening and she does get wheezy and short of breath. Denied any nausea or vomiting. Tolerating her diet. Denied any pain in her back or extremities. PHYSICAL EXAMINATION: GENERAL: Well developed in no distress. VITAL SIGNS: Blood pressure 171/63, pulse 71, respirations 18, temperature 36.6, oxygen saturation 94% on room air. SKIN: Warm and dry. No rash. HEENT: No mucosal abnormalities. NECK: No JVD. No adenopathy. HEART: Regular heart sounds. LUNGS: Bilateral wheezing, diffuse. ABDOMEN: Soft, nontender. BACK: No spinal tenderness. EXTREMITIES: No edema, clubbing, or cyanosis. TODAY'S LABORATORY TESTS: WBC count 16,060, hemoglobin of 14.8, hematocrit 44.7, platelet count 239,000. Sodium 137, potassium 4.4, chloride 101, CO2 26, BUN 33, creatinine 1.1, glucose 157, calcium 8.7. ASSESSMENT: 1. Severe acute exacerbation of her chronic lung disease. 2. Chronic obstructive lung disease. 3. Acute bronchitis. 4. Atrial fibrillation with rapid ventricular response. 5. Arterial hypertension. PLAN: 1. At this point, she is on IV antibiotics. She continues to be on IV Solu-Medrol at 40 mg every 6 hours. She is receiving Xopenex high flow treatment. Her wheezing has not resolved yet. 2. I added Accolate this evening. 3. As far as her blood pressure, I had to discontinue all her beta blockers. She is currently on Cozaar and I added amlodipine this morning. She is also on Cardizem. 4. Continue with her activity. 5. The main issue at this time is her persistent shortness of breath and wheezing. We are working on that with the anticipation of improvement. 6. We will decide before discharge on testing her for need for oxygen at home.
[2016-07-27] MEDS: LEVALBUTEROL 1.25MG/3ML NEB INH SCH ×6 (03:41→23:14)
[2016-07-27] MEDS ORDERED: NURSING VERBAL MED ORDER ONE ×3 (05:45→06:45)
[2016-07-27] MEDS: METHYLPREDNISOLONE IV 40 MG in SYRINGE 0 ML IV SCH ×4 (05:45→23:24)
[2016-07-27] MEDS: DILTIAZEM HCL INJ 125 MG in DEXTROSE 5% 100ML IV PRN ×2 (05:57→15:44)
[2016-07-27] MEDS ORDERED: FUROSEMIDE INJ 40 MG in SYRINGE 0 ML IV ONE (06:00)
[2016-07-27] MEDS ORDERED: DILTIAZEM HCL 5 MG/ML 5 ML VIAL ONE (06:36)
[2016-07-27] MEDS ORDERED: LORAZEPAM 2 MG/ML 1 ML VIAL ONE (06:40)
[2016-07-27] MEDS ORDERED: DILTIAZEM BOLUS / DRIP IV STA (07:22)
[2016-07-27] MEDS: LOSARTAN POTASSIUM 50 MG TAB PO SCH ×2 (08:23→20:53)
[2016-07-27] MEDS: BUDESONIDE/FORMOTEROL FUMARATE 160/4.5 60 PUFFS/INHALER INH SCH ×2 (08:23→20:51)
[2016-07-27] MEDS: ZAFIRLUKAST TAB 20 MG TAB PO SCH ×2 (08:23→20:52)
[2016-07-27] MEDS: ASPIRIN 81 MG ECTAB PO SCH (08:24)
[2016-07-27] MEDS: RANITIDINE HCL 150 MG TAB PO SCH ×2 (08:24→20:53)
[2016-07-27] MEDS: APIXABAN 2.5 MG TAB PO SCH ×2 (08:24→20:52)
[2016-07-27] MEDS: FLUOXETINE HCL 20 MG CAP PO SCH (08:24)
--- NOTE | 2016-07-27 08:24 | PROGRESS NOTE ---
DATE: 07/27/2016 HISTORY OF PRESENT ILLNESS: A 75-year-old female admitted with: 1. Acute bronchitis with severe acute exacerbation of her chronic lung disease. 2. Atrial fibrillation with rapid ventricular response. 3. Arterial hypertension. 4. Anxiety and depression. 5. Urinary tract infection. On admission, the patient was started on IV Cardizem. She did convert back to sinus rhythm after 2 boluses. Prior to her admission, she has been on metoprolol succinate. She has had recurrent episodes of atrial fibrillation. She was having severe exacerbation of her lung disease with severe wheezing. Her metoprolol was discontinued. Also, she had been started on sotalol and that has been discontinued because of her pulmonary status. She was started on oral Cardizem. Her blood pressure has been elevated. She is on multiple medications to try to control it including amlodipine and the Cardizem and Cozaar and she has received some IV Lasix. She had 2 or 3 doses during her hospitalization, but there is no evidence of any fluid retention or any ankle edema or any congestive heart failure. The problem at this point is that her respiratory status has not really improved. She is oxygenating. Her oxygen saturations have been in the 93-95% on room air, but she continues to have severe wheezing. With any activity, she becomes markedly tachypneic and dyspneic and her heart rate accelerates. For her respiratory problem, she is on IV antibiotics. She is on IV Solu-Medrol. Because of her persistent wheezing and shortness of breath, I did increase her Solu-Medrol to 40 mg IV every 6 hours. She is receiving Xopenex high flow treatment. Yesterday, I also started her on Accolate 20 mg twice a day. Early this morning around 5:30, she was helped to the bathroom and she went back into atrial fibrillation. Her rate was as high as 148. She was put back on IV Cardizem. Her heart rate is slowing down and at times she goes back to sinus rhythm, but she still has not converted and her rate is not adequately controlled at this point. I just increased her IV Cardizem from 5-10 mg every hour. The main issue at this time is with her respiratory status and the fact that she has not really improved much as far as her dyspnea and tachypnea and wheezing even with all the medications that have been tried. At this point, she is resting comfortably. When I walked into her room, she was lying flat in bed on her back. She was sleeping. She woke up. She is having severe wheezing, but she is not having any respiratory distress and her oxygen saturation remains 93% on room air. She denied any headache. No dizziness. No chest pain. She is dyspneic. No nausea. No vomiting. No problem with her bowel movements or urination. No ankle edema. PHYSICAL EXAMINATION: GENERAL: Well developed in no distress. VITAL SIGNS: Blood pressure 160/72, pulse 135. Her respiration was 24. Temperature, she remains afebrile. SKIN: Warm and dry. No rash. HEENT: She has markedly decreased hearing. She is not wearing her hearing aids. It is really difficult to communicate with her without her hearing aids. NECK: Supple. Nontender. No JVD. HEART: Irregular heart sounds. Tachycardic. LUNGS: Bilateral diffuse wheezing. ABDOMEN: Soft, nontender. BACK: No spinal tenderness. EXTREMITIES: No edema, clubbing, or cyanosis. LABORATORY DATA: All her cultures are negative. ASSESSMENT: 1. Acute bronchitis with severe acute exacerbation of her chronic lung disease. She has a history of smoking. 2. Recurrent atrial fibrillation with rapid ventricular response. 3. Arterial hypertension. 4. Anxiety. PLAN: 1. At this time, I increased her IV Cardizem to 10 mg per hour. 2. From a respiratory standpoint, she is already on multiple medications including IV Solu-Medrol 40 mg IV every 6 hours, Xopenex high flow treatment, Accolate that was started yesterday. She is still on IV antibiotic. She also has received boluses of magnesium sulfate which did not really have any beneficial effect on her bronchospasm. 3. Arterial hypertension which remains elevated. She is on multiple medications. 4. Recurrent atrial fibrillation. She is now on IV Cardizem. Beta blockers are not an option because of her severe bronchospasm. She was on metoprolol succinate initially and then sotalol but both medications have to be discontinued. The other option is to consider amiodarone. She is on Eliquis. 5. I did request a pulmonary consultation from Dr. Lucho Galvez to see if he recommends any other treatment that will improve her situation. 6. I also requested a cardiology consultation from Dr. Flores. [facility]
--- NOTE | 2016-07-27 10:32 | Cardiology Consultation ---
Cardiology Consultation Date of Consultation: Jul 27, 2016. Requesting Physician: Dr. Garcia Reason for Consultation: Recurrent AF Pt evaluation today including: conversation w/ patient, physical exam, lab review, review of studies, review of inpatient medication list History of Present Illness This is a very pleasant but extremely hard of hearing 75-year-old woman with long-standing peripheral arterial disease including bilateral superficial femoral arterial occlusions and chronic claudication. She also has a history of hypertension, hyperlipidemia and diabetes mellitus as well as obesity. She also has a history of chronic obstructive lung disease. She presented with acute bronchitis and exacerbation of COPD but was noted to go into atrial fibrillation. To my knowledge she has no prior history of atrial fibrillation however she was not very symptomatic either in the emergency room or now with recurrence so she may have prior episodes. She was feeling poorly at home for 2 days prior to admission, mostly pulmonary complaints but included shortness of breath. She arrived in the emergency room in sinus rhythm however after treatment with albuterol developed atrial fibrillation with a rapid heart rate. She received intravenous Cardizem and converted back to sinus rhythm, she was admitted on 07/22/2016. She was on sotalol for a short time, and is on Eliquis 5 mg twice a day. She developed recurrent atrial fibrillation this morning, the rate is rapid but she is relatively unaware of it. At the time of my evaluation she was feeling well, her breathing was improved since admission and she had no sensation of palpitations despite a heart rate of about 130 bpm currently. She has never had chest discomfort. She is stable dyspnea on exertion and claudication which limits her activities. Past Medical/Surgical History PAST MEDICAL HISTORY: 1. Cervical polyp 2. Hypertension 3. Gastroesophageal reflux 4. Hypercholesterolemia 5. Anxiety 6. Depression 7. Hyperglycemia 8. Osteoporosis 9. Chronic obstructive pulmonary disease 10. Peripheral arterial disease, treated medically Family History Her mother at the age of age 85 of acute pancreatitis but had coronary artery disease and congestive heart failure. Her father at age 80 with congestive heart failure and liver disease. Social History Smoking Status: Former Smoker History of Alcohol Use: No She is a , she has no children. She has a history of smoking up to 1 pack per day for many years but not smoking currently. Denied any alcohol except on special occasions. 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 Review of Systems Constitutional: No fever, No weakness, No weight loss Respiratory: + dyspnea on exertion, + see HPI Cardiac: + see HPI, No PND, No chest pain, No edema, No orthopnea, No palpitations Abdomen: No GI bleeding, No diarrhea, No nausea, No pain, No vomiting Female : No problem reported Neurologic: No balance problems, No numbness/tingling, No paralysis, No weakness Heme: No abnormal bleeding/bruising, No clotting problems Endo: No fatigue Skin: No problem reported All Other Systems: Reviewed and Negative Allergies Coded Allergies: Penicillins (Verified Allergy, Mild, GI SYMPTOMS, 07/21/16) Medications Current Inpatient Medications Medications (Trade) Dose Ordered Sig/Jackie Route Start Time Stop Time Status Last Admin Dose Admin Aspirin (Ecotrin Tab) 81 mg DAILY PO 07/22/16 09:00 08/21/16 08:59 07/27/16 08:24 81 MG Budesonide/ Formoterol Fumarate (Symbicort 160/ 4.5 Inh) 2 puffs BID INH 07/22/16 09:00 08/21/16 08:59 07/27/16 08:23 2 PUFFS Fluoxetine HCl (Prozac Cap) 20 mg DAILY PO 07/22/16 09:00 08/21/16 08:59 07/27/16 08:24 20 MG Ranitidine HCl (zANTac TAB) 150 mg BID PO 07/22/16 09:00 08/21/16 08:59 07/27/16 08:24 150 MG Simvastatin 40 mg 40 mg HS PO 07/22/16 21:00 08/21/16 20:59 07/26/16 21:23 40 MG Levofloxacin/Prmx (Levaquin / D5W/ Premixed D5W) 100 ml @ 100 mls/hr Q24H IV 07/22/16 23:00 07/27/16 23:59 07/26/16 23:31 100 MLS/HR Acetaminophen (Tylenol Tab) 500 mg Q4H PRN PO 07/22/16 02:00 08/21/16 01:59 Lorazepam (Ativan Tab) 0.5 mg Q6H PRN PO 07/22/16 02:00 08/21/16 01:59 07/26/16 23:31 0.5 MG Hydrocodone Bit/ Homatropine Methylb (Hycodan Syrup) 5 ml Q4H PRN PO 07/22/16 02:00 08/05/16 01:59 Apixaban (Eliquis Tab) 5 mg BID PO 07/22/16 09:00 08/21/16 08:59 07/27/16 08:24 5 MG Levalbuterol 1.25 mg 1.25 mg Q4R INH 07/22/16 12:00 08/21/16 11:59 07/27/16 07:34 1.25 MG Methylprednisolone Sodium Succinate/ Syringe (Solu-Medrol IV/ Syringe) 0.64 ml @ 1.5 mls/min Q6H IV 07/23/16 18:00 08/22/16 17:59 07/27/16 05:45 1.5 MLS/MIN Sodium Chloride ([place] Nasal [place]) 1 sprays PRN PRN NA 07/23/16 21:00 08/22/16 20:59 Diltiazem HCl (Cardizem Tab) 60 mg TID PO 07/24/16 14:00 08/23/16 13:59 Future Hold 07/26/16 21:23 60 MG Hydralazine HCl (HydrALAZINE INJ) 10 mg Q6H PRN IV. 07/25/16 17:45 08/24/16 17:44 07/26/16 23:38 10 MG Losartan Potassium (coZAAR TAB) 50 mg BID PO 07/26/16 21:00 08/25/16 20:59 07/27/16 08:23 50 MG Zafirlukast 20 mg 20 mg BID PO 07/26/16 21:00 08/25/16 20:59 07/27/16 08:23 20 MG Diltiazem HCl/ Dextrose (Cardizem Inj/D5 100ml) 125 ml @ 0 mls/hr Q0M PRN IV 07/27/16 06:00 08/26/16 05:59 07/27/16 05:57 5 MLS/HR Physical Exam Vital Signs Past 12 Hours Date Time Temp Pulse Resp B/P Pulse Ox O2 Delivery O2 Flow Rate FiO2 07/27/16 09:29 Nasal Cannula 2.0 07/27/16 07:41 36.5 136 20 159/77 95 Nasal Cannula 07/27/16 07:23 117 16 94 Nasal Cannula 2.0 07/27/16 06:45 135 160/72 07/27/16 05:41 148 24 168/72 93 Room Air 07/27/16 04:00 Room Air 07/27/16 03:41 72 16 95 Room Air 07/27/16 03:26 36.4 80 24 160/60 93 Room Air 07/27/16 00:47 148/65 07/27/16 00:00 Room Air 07/26/16 23:33 36.4 70 22 170/68 94 Room Air 07/26/16 23:24 69 16 96 Room Air Constitutional: General Apperance: heathly-appearing Level of Distress: mild distress Psychiatric: Mental Status: active & alert Head: normocephalic Eyes: EOM: EOMI ENMT: normal ENT inspection, hearing grossly normal Neck: supple, no masses Lungs: Respiratory effort: good air movement Auscultation: expiratory wheezing (bilateral) Cardiovascular: Heart Auscultation: RRR, no murmurs, no rubs, no gallops Peripheral Pulses: Bruits: none appreciated Abdomen: Bowel Sounds: normal Inspection & Palpation: soft, no tenderness, guarding & rebound, no masses Musculoskeletal: normal strength (5/5 throughout) Extremities: no edema Neurologic: Cranial Nerves: grossly intact Sensation: grossly intact Data Imaging: An echocardiogram was done 07/22/2016, this showed normal left ventricular function with no regional wall motion abnormalities, ejection fraction was 55-60%. She did have borderline jugular hypertrophy. EKG: An electrocardiogram this morning at 5:36 AM shows atrial fibrillation with a heart rate of 142 bpm, she does have anterolateral ST depression. Telemetry reviewed: Atrial fibrillation with a rapid heart rate starting around 5 AM, average heart rate about 130 bpm. Assessment & Plan #1. Atrial fibrillation: It is possible that this represents acute atrial fibrillation in the setting of an exacerbation of lung disease and agents which may trigger it, but she is relatively unaware of it and it is equally possible that she has paroxysmal atrial fibrillation. Even if she has a response to the medications and the exacerbation of lung disease that will probably happen again in the future. I think the safest approach would be to treat her with rate control currently, she will probably convert on her own back to normal although we will have to see. I would certainly continue anticoagulation for long-term. I believe that Eliquis is a good choice. I am going to add digoxin since her rate is still not very well controlled on intravenous diltiazem and I would like to avoid beta-blockade. I would probably hold off on antiarrhythmic therapy currently. It may be difficult to determine her atrial fibrillation burden, however may not be necessary if we can treat her appropriately with rate control and anticoagulation. #2. Risk factors for coronary disease: She has substantial risk factors for coronary artery disease and does have known peripheral atherosclerosis. Her electrocardiogram suggests anterolateral ST depression, this is possibly ischemic due to the heart rate and may suggest underlying coronary artery disease. She is on aspirin, this increases the risk of bleeding substantially in combination with an anticoagulant. Given her peripheral vascular disease however I think it would be reasonable to continue it despite the increased risk of bleeding. #3. Hyperlipidemia: She is treated with statins and should continue. #4. Hypertension: She has quite significant hypertension, part of that may be her acute presentation however she does have left ventricular hypertrophy and risk factors of coronary artery disease and known peripheral vascular disease. Her blood pressure may come under better control with higher doses of diltiazem , but she will clearly need other medications as well. I would like to avoid beta-blockade if possible, but perhaps she can tolerate low doses future. With her current exacerbation of lung disease I will hold off on beta blockade unless we absolutely needed for rate control. Thank you for allowing me to participate in her care.
[2016-07-27] MEDS ORDERED: DIGOXIN IV 250 MCG in SYRINGE 9 ML IV ONE (11:00)
[2016-07-27] MEDS ORDERED: DIGOXIN 0.25 MG TAB PO SCH (12:00)
[2016-07-27] MEDS: DIGOXIN 0.125 MG TAB PO SCH (16:58)
[2016-07-27] MEDS: LORAZEPAM 0.5 MG TAB PO PRN ×2 (17:02→23:24)
[2016-07-27] MEDS: SIMVASTATIN 40 MG TAB PO SCH (20:53)
[2016-07-27] MEDS: LEVOFLOXACIN / D5W 500 MG in PREMIXED IN D5W 100 ML IV SCH (23:24)
[2016-07-27] MEDS: HydrALAZINE HCL 20 MG/ML VIAL IV. PRN (23:32)
[2016-07-28] VITALS (15 sets, daily range): BP systolic 125–177; BP diastolic 52–70; PULSE 71–140; TEMP 36.4–36.9; O2SAT 94–96
[2016-07-28] MEDS: LEVALBUTEROL 1.25MG/3ML NEB INH SCH ×7 (03:17→23:29)
[2016-07-28] MEDS: DILTIAZEM HCL INJ 125 MG in DEXTROSE 5% 100ML IV PRN ×3 (05:18→21:30)
[2016-07-28] MEDS: METHYLPREDNISOLONE IV 40 MG in SYRINGE 0 ML IV SCH ×3 (05:46→17:53)
[2016-07-28] MEDS: HydrALAZINE HCL 20 MG/ML VIAL IV. PRN (05:49)
[2016-07-28] MEDS ORDERED: FUROSEMIDE INJ 40 MG in SYRINGE 0 ML IV ONE (06:00)
[2016-07-28 06:10] LABS: BASO % 0.2 %; BASO ABS # 0.03 K/uL (0-0.2); COMPLETE YES; HEMATOCRIT 42.4 % (37-47); IG% 1.1 %; LYMPH % 8.6 %; LYMPH ABS # 1.53 K/uL (1.2-3.4); MEAN CELL VOLUME 94.4 fL (80-100); MEAN CORPUSCULAR HEMOGLOBIN 31.6 pg (25-34); MEAN CORPUSCULAR HGB CONC 33.5 g/dl (32-36); MEAN PLATELET VOLUME 11.3 fL (7.4-10.4); MONO % 2.8 %; NEUT % 87.3 %; PLATELET COUNT 273 K/uL (130-400); RED BLOOD COUNT 4.49 M/uL (4.2-5.4); WHITE BLOOD COUNT 17.75 K/uL (4.8-10.8)
[2016-07-28 06:38] LABS: CALCIUM 8.1 mg/dl (8.5-10.1); POTASSIUM 4.5 mmol/L (3.5-5.1)
[2016-07-28 06:48] LABS: CREATININE 1.7 mg/dl (0.60-1.20)
[2016-07-28] MEDS: BUDESONIDE/FORMOTEROL FUMARATE 160/4.5 60 PUFFS/INHALER INH SCH ×2 (07:38→20:41)
[2016-07-28] MEDS: TIOTROPIUM BROMIDE 5 PUFF/90 MCG INH INH SCH (07:39)
[2016-07-28] MEDS: LOSARTAN POTASSIUM 50 MG TAB PO SCH ×2 (07:42→20:43)
[2016-07-28] MEDS: CETIRIZINE HCL 10 MG TAB PO SCH (07:42)
[2016-07-28] MEDS: RANITIDINE HCL 150 MG TAB PO SCH ×2 (07:42→20:43)
[2016-07-28] MEDS: FLUOXETINE HCL 20 MG CAP PO SCH ×2 (07:43→09:00)
[2016-07-28] MEDS: ASPIRIN 81 MG ECTAB PO SCH (07:43)
[2016-07-28] MEDS: APIXABAN 2.5 MG TAB PO SCH ×2 (07:43→20:44)
--- NOTE | 2016-07-28 07:58 | PULMONARY CONSULTATION ---
DATE OF CONSULTATION: 07/28/2016 HISTORY OF PRESENT ILLNESS: The patient is a pleasant 75-year-old who has hearing aids bilaterally and has difficulty with hearing without the hearing aid. Nonetheless, she was admitted to the hospital with chronic obstructive lung disease on the by Dr. Garcia has asked me to evaluate the patient from pulmonary standpoint. She initially was seen in the Emergency Room by Liudmila Mtz PA-C with 2 days worth of cough and shortness of breath, fevers and chills. Had significant shortness of breath and was unable do any of her chores at home. She presented to the Emergency Room, was found to have an exacerbation of chronic obstructive lung disease. According to those records, her blood pressure initially was 191/84, temp was 37, pulse is 86 and it ila up to 157 and oxygen saturation 91% on room air. Her white count was elevated at 12.8. CO2 was 25 on the electrolytes with a BUN of 20. She was given Solu-Medrol and DuoNeb treatments, started on Levaquin, had developed some atrial fibrillation after being given nebulizer treatment and she was started on some Cardizem and Dr. Garcia has asked me to evaluate the patient from a pulmonary standpoint. Since admission, she continues to have significant wheezing associated with some nonproductive cough. This is despite appropriate use of antimicrobial agents, steroids and nebulizers. I started her on some Zyrtec and Spiriva last night. She states she is better since the time of her admission, but during the exam continued to have wheezing and nonproductive cough. She denies aspiration and postnasal drip, nausea, vomiting, hoarseness, hemoptysis. She has clear sputum production at home generally when she comes ill. She is limited by her of shortness of breath with exertion and by claudication symptoms. According to the previous records, she had been seen by Dr. Tolbert in the past and had imaging studies of the lower extremities that revealed significant vascular disease of the vessels of the legs. PFTs done in January of 2014 through the hospital here showed an FEV1 of 1.39 liters with moderate degree of obstruction with a significant improvement in the FEV1 with use of albuterol suggests of a partially reversible airway obstruction. Recent echocardiogram done and read by Dr. Lopez during this hospitalization revealed an LVEF of 55-60% with borderline concentric left ventricular hypertrophy and mild tricuspid regurgitation. Borderline left atrial enlargement was noted. Right ventricular structures were not well visualized with no evidence of pulmonary hypertension. Right atrium was normal. Aortic valve was not well visualized.Evidence of elevated right atrial pressures were noted by a dilated inferior vena cava with estimated right atrial pressure of 15 mmHg. Nonetheless, the patient states that she is mildly improved. She denies any environmental exposures or travel history, has been unremarkable. No pets have been ill at home. She does have reflux and that has been under good control. PAST MEDICAL HISTORY: Significant for hypertension, GERD, chronic obstructive lung disease, hyperlipidemia, anxiety, severe peripheral vascular disease, osteoporosis, obesity. SOCIAL HISTORY: She had smoked a pack a day for many years, quit about 5 years ago. She states occasionally will just be a pack a week. She denies any alcohol intake. 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 There is no history of any TB exposure. FAMILY HISTORY: Father at age 80 from coronary artery disease and heart failure. Mother at age 85 from pancreatitis and had coronary artery disease. ALLERGIES: None. SHE IS INTOLERANT TO PENICILLIN WHICH CAUSED SOME VAGINAL IRRITATION. MEDICATIONS: Noted. She states she generally uses her inhalers at home and before this illness usually got along fairly well without too much difficulty. PHYSICAL EXAMINATION: GENERAL: She is very pleasant and cooperative. VITAL SIGNS: Her blood pressure 165/63, pulse is 80 and regular now, respiratory rate 20, oxygen saturation 95% on 2 liters and she is afebrile. She has been afebrile since admission. Her weight is 90.4 kilograms. According to the nurses' notes, she continued to have some wheezing, but no significant dyspnea with exertion while going to the bathroom. She is receiving Cardizem for the atrial fibrillation per Dr. Flores's note appreciated. She has hearing aids bilaterally and I helped her put those in this morning. HEENT: Reveals small nose with no evidence of thrush. She has a small posterior pharynx and normal soft palate. No adenopathy is noted. Carotid upstroke is normal. I cannot detect any bruits. She has audible wheezing. Trachea is midline. Expansion of the thorax is normal with deep inspiration. No adenopathy is noted. HEART: Had a regular rate and rhythm. I could not detect any murmurs. LUNGS: Reveal inspiratory and expiratory wheezing in all lung dolan, anterior and posterior with no fremitus noted. ABDOMEN: Soft and obese, nontender. EXTREMITIES: She has no cyanosis, clubbing or edema. Nailbeds are painted. No clubbing is noted, however. IMAGING AND LABORATORY DATA: Chest x-ray revealed some perhaps mild interstitial thickening with mild cardiac prominence. No pneumothorax or evidence of any consolidations were noted. White count 17.75, hematocrit 42.4%, platelet count 273,000 with no significant eosinophils noted. Chemistry profile looked good with sodium 134, BUN was elevated from 22-49, creatinine is elevated at 1.7 today with a glucose in the 157-196 range. Liver function studies were normal. BNP was slightly elevated at 2058 at the time of admission. Digoxin level was 1.6. Urinalysis revealed a few inflammatory cells. Coagulation profile and influenza PCR is negative. Blood cultures are negative. Urine culture revealed numerous organisms. Electrocardiogram from the continued for atrial fibrillation with rapid ventricular response with some anterior ST segment changes. IMPRESSION: 1. Chronic obstructive lung disease with exacerbation. She has significant wheezing. 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 2. Paroxysmal atrial fibrillation. By exam today, she may have converted. 3. Gastroesophageal reflux disease. 4. Obesity. 5. Chronic kidney disease. 6. Severe peripheral vascular disease. RECOMMENDATIONS: 1. At this point, the patient is really receiving maximum therapy. I started Spiriva. Recent studies in the literature suggest a significant improvement in bronchial asthma when placed on Spiriva 1 inhalation once daily. I do not think this will affect the rhythm at this point. I also added on Zyrtec that may help with the bronchospasm. 2. I would continue on the Accolate, which was just started and the methylprednisolone. We will follow her sugars carefully. She may need to be placed on some insulin. 3. Continue on Symbicort 160/4.5 two puffs b.i.d. and good antireflux regimen. She is already on good anticoagulants with Eliquis. We discussed increasing activity as much as possible. I do not think she needs a CT scan at this point of the thorax since I believe she is being treated appropriately. I think we just need to give this some time and hopefully the bronchospasm with her present treatment which really is maximized treatment will improve. Thanks for asking me to evaluate Ms. Sanchez and I will be glad to follow along with you during her hospital stay. LUPE
[2016-07-28] MEDS ORDERED: DILTIAZEM HCL 240 MG CAPCR PO ONE (08:15)
[2016-07-28] MEDS: ZAFIRLUKAST TAB 20 MG TAB PO SCH ×2 (09:06→20:43)
--- NOTE | 2016-07-28 10:44 | Clinical Documentation Query ---
Dr. SAULO ORTA [facility] : CLINICAL DOCUMENTATION QUERY A 75-year-old female admitted with: 1. Acute bronchitis with severe acute exacerbation of her chronic lung disease. 2. Atrial fibrillation with rapid ventricular response. 3. Arterial hypertension. 4. Anxiety and depression. 5. Urinary tract infection. Admission BUN and creatininine 21 mg/dl and 1.00 mg/dl. This a.m. (07/28), repeat values are 49 mg/dl and 1.70 mg/dl. She is being monitored with serial chemistries. Please clarify as clinically appropriate. Thank you. In your clinical opinion is this patient being managed for/experience: ( ) Acute kidney failure ( ) Other explanation of clinical findings (Please Explain) ( ) Unable to determine (Please Define) ( ) Need to Discuss (x ) Not Agree The medical record reflects the following clinical findings, treatment, and risk factors. Clinical Indicators: As above Treatment: Serial chemistries Risk Factors: Age, medications, atrial fibrillation. Please clarify and document your clinical opinion in the progress notes and discharge summary. Terms such as "probable", "suspected", "likely", "questionable", "possible", or "still to be ruled out" are acceptable. IF IN AGREEMENT, YOU MUST DOCUMENT ABOVE DIAGNOSTIC STATEMENT IN DAILY PROGRESS NOTES AND DISCHARGE SUMMARY. This document is not part of the patient's record. Thank You, García Mtz, JD [phone]
[2016-07-28] MEDS ORDERED: NURSING VERBAL MED ORDER ONE ×3 (12:15→21:45)
[2016-07-28] MEDS ORDERED: DILTIAZEM HCL 30 MG TAB PO ONE (12:30)
[2016-07-28] MEDS: DIGOXIN 0.125 MG TAB PO SCH (15:57)
--- NOTE | 2016-07-28 17:08 | Cardiology Follow-Up ---
Subjective Date of Service: Jul 28, 2016. Pt evaluation today including: conversation w/ patient, conversation w/ family , physical exam, lab review, review of studies, review of inpatient medication list History of Present Illness This is a very pleasant but extremely hard of hearing 75-year-old woman with long-standing peripheral arterial disease including bilateral superficial femoral arterial occlusions and chronic claudication. She also has a history of hypertension, hyperlipidemia and diabetes mellitus as well as obesity. She also has a history of chronic obstructive lung disease. She presented with acute bronchitis and exacerbation of COPD but was noted to go into atrial fibrillation. To my knowledge she has no prior history of atrial fibrillation however she was not very symptomatic either in the emergency room or with recurrence so she may have had prior episodes. She was feeling poorly at home for 2 days prior to admission, mostly pulmonary complaints but included shortness of breath. She arrived in the emergency room in sinus rhythm however after treatment with albuterol developed atrial fibrillation with a rapid heart rate. She received intravenous Cardizem and converted back to sinus rhythm, she was admitted on 07/22/2016. She was on sotalol for a short time, and is on Eliquis 5 mg twice a day. She developed recurrent atrial fibrillation yesterday morning, the rate was rapid but she was relatively unaware of it. She was on oral diltiazem, I added digoxin to her regimen. She is feeling well, her breathing has improved since admission and she had no sensation of palpitations despite a heart rate of about 130 bpm currently. She has never had chest discomfort. She has stable dyspnea on exertion and claudication which limits her activities. She is currently tolerating her medications very well. Social History Smoking Status: Former Smoker History of Alcohol Use: No Review of Systems Respiratory: + dyspnea on exertion, + see HPI Cardiac: + see HPI, No PND, No chest pain, No edema, No orthopnea, No palpitations Medications Cardiovascular: Item Value Date Time Diltiazem HCl 240 mg 07/29/16 0900 (Cardizem Cd Cap) QAM/PO Digoxin 0.125 mg 07/27/16 1600 (Lanoxin Tab) DAILY@16/PO 07/28/16 1557 Losartan Potassium 50 mg 07/26/16 2100 (coZAAR TAB) BID/PO 07/28/16 0742 Hydralazine HCl 10 mg 07/25/16 1745 (HydrALAZINE INJ) Q6H PRN/IV. 07/28/16 0549 Simvastatin 40 mg 07/22/16 2100 (Zocor Tab) HS/PO 07/27/162052 Aspirin 81 mg 07/22/16 0900 (Ecotrin Tab) DAILY/PO 07/28/16 07 Apixaban 5 mg 07/22/16 0900 (Eliquis Tab) BID/PO 07/28/16 0743 Objective Vital Signs Past 12 Hours Date Time Temp Pulse Resp B/P Pulse Ox O2 Delivery O2 Flow Rate FiO2 07/28/16 16:08 Nasal Cannula 2.0 07/28/16 15:57 80 07/28/16 15:44 36.6 81 16 146/55 95 Nasal Cannula 2.0 07/28/16 15:40 80 16 95 Nasal Cannula 2.0 07/28/16 12:50 Nasal Cannula 2.0 07/28/16 12:03 36.4 82 18 129/52 96 Nasal Cannula 2.0 07/28/16 11:09 71 16 96 Nasal Cannula 2.0 07/28/16 08:00 Room Air 07/28/16 07:37 83 16 95 Nasal Cannula 2.0 07/28/16 07:37 36.7 78 22 159/66 94 2.0 Last Recorded Weight-Kilograms: 90.400 Intake & Output 8-Hour Column 07/27/16 07/28/16 07/28/16 16:00 00:00 08:00 Intake Total 345 ml 347 ml 274 ml Output Total 1200 ml 600 ml 200 ml Balance -855 ml -253 ml 74 ml 24-Hour Column 07/28/16 08:00 Intake Total 966 ml Output Total 2000 ml Balance -1034 ml Physical Exam Constitutional: General Apperance: heathly-appearing Level of Distress: mild distress Lungs: Respiratory effort: good air movement Auscultation: expiratory wheezing (bilateral) Cardiovascular: Heart Auscultation: RRR, no murmurs, no rubs, no gallops Peripheral Pulses: Bruits: none appreciated Extremities: no edema Data Laboratory Results: Last 24 Hours Test 07/28/16 05:45 07/28/16 05:50 Digoxin Level 1.6 ng/ml White Blood Count 17.75 K/uL Red Blood Count 4.49 M/uL Hemoglobin 14.2 g/dL Hematocrit 42.4 % Mean Corpuscular Volume 94.4 fL Mean Corpuscular Hemoglobin 31.6 pg Mean Corpuscular Hemoglobin Concent 33.5 g/dl Platelet Count 273 K/uL Mean Platelet Volume 11.3 fL Neutrophils (%) (Auto) 87.3 % Lymphocytes (%) (Auto) 8.6 % Monocytes (%) (Auto) 2.8 % Eosinophils (%) (Auto) 0.0 % Basophils (%) (Auto) 0.2 % Neutrophils # (Auto) 15.51 K/uL Lymphocytes # (Auto) 1.53 K/uL Monocytes # (Auto) 0.49 K/uL Eosinophils # (Auto) 0.00 K/uL Basophils # (Auto) 0.03 K/uL RDW Standard Deviation 51.6 fL RDW Coefficient of Variation 14.8 % Immature Granulocyte % (Auto) 1.1 % Immature Granulocyte # (Auto) 0.19 K/uL Sodium Level 134 mmol/L Potassium Level 4.5 mmol/L Chloride Level 96 mmol/L Carbon Dioxide Level 26 mmol/L Anion Gap 12.0 mmol/L Blood Urea Nitrogen 49 mg/dl Creatinine 1.70 mg/dl Est Creatinine Clear Calc Drug Dose 29.0 ml/min Estimated GFR () 33.1 Estimated GFR (Non- 28.6 BUN/Creatinine Ratio 29.0 Random Glucose 196 mg/dl Calcium Level 8.1 mg/dl Telemetry reviewed: Paroxysmal AF continues, she had an episode this morning and then was back in sinus rhythm, now back in what appears to be atrial flutter. Overall the rate is somewhat improved. Assessment and Plan #1. Atrial fibrillation: It is possible that this represents acute atrial fibrillation in the setting of an exacerbation of lung disease and agents which may trigger it, but she is relatively unaware of it and it is more likely I believe that she has paroxysmal atrial fibrillation. Even if the atrial fibrillation was in response to the medications and the exacerbation of lung disease that will probably happen again in the future. I think the safest approach would be to treat her with rate control currently, her rate is better but still somewhat rapid. I would certainly continue anticoagulation for long- term. I believe that Eliquis is a good choice. Although the rate is somewhat elevated I would probably continue the current regimen for now at least. I would probably hold off on antiarrhythmic therapy currently although that is an option to minimize her episodes. It may be difficult to determine her atrial fibrillation burden in the future, however may not be necessary if we can treat her appropriately with rate control and anticoagulation. 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 #2. Risk factors for coronary disease: She has substantial risk factors for coronary artery disease and does have known peripheral atherosclerosis. Her electrocardiogram suggests anterolateral ST depression, this is possibly ischemic due to the heart rate and may suggest underlying coronary artery disease. She is on aspirin, this increases the risk of bleeding substantially in combination with an anticoagulant. Given her peripheral vascular disease however I think it would be reasonable to continue it despite the increased risk of bleeding. #3. Hyperlipidemia: She is treated with statins and should continue. #4. Hypertension: She has quite significant hypertension, part of that may be her acute presentation however she does have left ventricular hypertrophy and risk factors of coronary artery disease and known peripheral vascular disease. Her blood pressure may come under better control with higher doses of diltiazem , but she will clearly need other medications as well. Her blood pressure does seem a little bit better today. I would like to avoid beta-blockade if possible , but perhaps she can tolerate low doses future. With her current exacerbation of lung disease I will hold off on beta blockade unless absolutely needed for rate control. Thank you for allowing me to participate in her care.
[2016-07-28] MEDS ORDERED: DIGOXIN IV 125 MCG in SYRINGE 9.5 ML IV ONE (17:45)
[2016-07-28] MEDS ORDERED: DILTIAZEM HCL 5 MG/ML 5 ML VIAL IV SCH (18:45)
[2016-07-28] MEDS: SIMVASTATIN 40 MG TAB PO SCH (20:43)
[2016-07-28] MEDS ORDERED: LORAZEPAM 2 MG/ML 1 ML VIAL IV STA (21:29)
--- NOTE | 2016-07-28 22:56 | PROGRESS NOTE ---
DATE: 07/28/2016 A 75-year-old female admitted with acute bronchitis and severe exacerbation of her chronic lung disease, also atrial fibrillation with rapid ventricular response. She is also treated for arterial hypertension, anxiety and depression. The patient has been treated with IV antibiotics, IV steroids and high-flow treatments. Her lung disease did not show any improvement initially, she was still having severe wheezing. Multiple other medications were added. As far as her atrial fibrillation, we had to discontinue all beta-blockers because of her wheezing and bronchospasm. She was started on IV Cardizem. Her rhythm came back to sinus rhythm and her rate was controlled, but she has had multiple breakthroughs with atrial fibrillation with rapid ventricular response. She was seen in cardiology consultation by Dr. Flores. Digoxin was added. Even with the digoxin and the Cardizem, she continues to have episodes of atrial fibrillation with rapid ventricular response as high as 140. She was also seen in pulmonary consultation by Dr. Galvez. Spiriva was added to her regimen. Overall, her condition has markedly improved from a respiratory standpoint. She has resolution of her wheezing, still persistent but minimally. Her shortness of breath improved. She denied any headache or dizziness or lightheadedness. No chest pain. Even when her rate is in the 140s, she is not really aware of it. No nausea, no vomiting. No problem with her bowel movements or urination. No pain in her back or extremities. PHYSICAL EXAMINATION: GENERAL: Well developed, in no distress. VITAL SIGNS: Blood pressure 159/66, pulse 83 early this morning, she was in a sinus rhythm and then later this evening she went back into atrial fibrillation, respiration 22, oxygen saturation 95% on 2 liter oxygen by nasal cannula, temperature 36.7. SKIN: Warm and dry. No rash. HEENT: Oxygen cannula in place. NECK: No JVD, no adenopathy. HEART: This evening she had an irregular heartbeat with a rapid response with a rate around 120-130. LUNGS: She does have bilateral wheezing but to a much lesser degree. ABDOMEN: Soft, nontender. BACK: No spinal tenderness. EXTREMITIES: No edema, clubbing or cyanosis. TODAY'S LABORATORY TESTS: WBC count 17,750. I am suspecting that the rise in her WBC count is most likely related to the higher dose of Solu-Medrol. Hemoglobin 14.2, hematocrit 42.4, platelet count 273,000. Sodium 134, potassium 4.5, chloride 96, CO2 26, BUN 49, creatinine 1.7, glucose 196, calcium 8.1. ASSESSMENT: 1. Acute bronchitis with severe exacerbation of her chronic lung disease. 2. Atrial fibrillation with rapid ventricular response. 3. Arterial hypertension. 4. Anxiety and depression. PLAN: 1. Continuing to adjust her medications. This evening I had to put her back on IV Cardizem at 10 mg per hour after a 10-mg bolus. 2. Continue IV digoxin. 3. This morning I started her on the Cardizem CD 240 mg daily and discontinued her Cardizem, but now it had to be restarted this evening. I did not change the order for the Cardizem CD yet, I will see how she is in the morning and make that decision. 4. Need to speak with Dr. Flores, see what his further recommendation is to try to maintain her in a sinus rhythm or at least control her rate. 5. Her respiratory status is improving.
[2016-07-29] VITALS (18 sets, daily range): BP systolic 115–157; BP diastolic 53–76; PULSE 57–107; TEMP 36.4–36.8; O2SAT 94–98
[2016-07-29] MEDS: METHYLPREDNISOLONE IV 40 MG in SYRINGE 0 ML IV SCH ×4 (00:42→17:34)
[2016-07-29] MEDS: DILTIAZEM HCL INJ 125 MG in DEXTROSE 5% 100ML IV PRN ×2 (02:19→19:54)
[2016-07-29] MEDS: LEVALBUTEROL 1.25MG/3ML NEB INH SCH ×5 (03:08→23:52)
--- NOTE | 2016-07-29 07:09 | PROGRESS NOTE ---
DATE: 07/29/2016 The patient is comfortable. When sleeping, her respiratory rate is 16. She denies cough. States she feels 100% better than she did at the time of admission. She remains in atrial flutter and is tolerating her medications well. She states from a respiratory standpoint, even though she continues to have wheezing she is improved. She denies any aspiration, sputum production or hoarseness. Has not had any chest pain. PHYSICAL EXAMINATION: VITAL SIGNS: Stable. Her blood pressure is 147/70, oxygen saturation 96% on 2 liters. I O was a 1010 in and 200 out. Weight 90.4 kilograms yesterday, which is about stable, perhaps slightly increased. The nurse's notes reviewed. I reviewed her rhythm strip today and it appears it is probably atrial fibrillation with a rapid ventricular response. MEDICATIONS: Reviewed. She is tolerating the diltiazem, Spiriva and Zyrtec well. HEENT: Unremarkable. I do not detect any thrush on the mucosa. There is no neck vein distention or HJR. HEART: Irregular rhythm. I do not detect any gallops or murmurs. LUNGS: Continue to reveal wheezing bilaterally, but they appear a bit better than they were yesterday. With forced expiration it is not quite as loud. She denies any coughing and did not cough. There is no fremitus. ABDOMEN: Soft, obese, nontender. EXTREMITIES: She has no cyanosis, clubbing or edema. Nailbeds are painted. LABORATORY DATA: White count was 17.75 yesterday. She is on steroids. Hemoglobin 14.2. Chemistry profile has been stable with a BUN of 49, creatinine of 1.7. Influenza A and B swabs are negative. Blood cultures are negative. IMPRESSION: 1. Chronic obstructive lung disease with exacerbation. 2. Atrial fibrillation and flutter. 3. Gastroesophageal reflux disease, stable. RECOMMENDATIONS: 1. At this point, I will continue with her present pulmonary medications. She seems to be tolerating those well. I do not believe the long acting bronchodilator formoterol will aggravate her arrhythmia and I think she needs that prevents significant bronchospasm. 2. At this point, I would continue on the Solu-Medrol 40 mg IV q. 6h with consideration for anticoagulation which is being done with Eliquis 5 mg b.i.d. From a pulmonary standpoint, she is stable, seems to be very slowly improving. MTDD
[2016-07-29] MEDS ORDERED: METOPROLOL TARTRATE 1 MG/ML VIAL IV STA (07:54)
[2016-07-29] MEDS: FLUOXETINE HCL 20 MG CAP PO SCH (08:07)
[2016-07-29] MEDS: CETIRIZINE HCL 10 MG TAB PO SCH (08:07)
[2016-07-29] MEDS: ASPIRIN 81 MG ECTAB PO SCH (08:07)
[2016-07-29] MEDS: RANITIDINE HCL 150 MG TAB PO SCH ×2 (08:07→20:57)
[2016-07-29] MEDS: APIXABAN 2.5 MG TAB PO SCH ×2 (08:07→20:56)
[2016-07-29] MEDS: LOSARTAN POTASSIUM 50 MG TAB PO SCH ×2 (08:08→20:55)
[2016-07-29] MEDS: ZAFIRLUKAST TAB 20 MG TAB PO SCH ×2 (08:08→20:56)
[2016-07-29] MEDS: TIOTROPIUM BROMIDE 5 PUFF/90 MCG INH INH SCH (08:09)
[2016-07-29] MEDS: BUDESONIDE/FORMOTEROL FUMARATE 160/4.5 60 PUFFS/INHALER INH SCH ×2 (08:09→20:55)
[2016-07-29] MEDS ORDERED: DILTIAZEM HCL 240 MG CAPCR PO SCH (09:00)
[2016-07-29 09:16] LABS: BASO ABS # 0.01 K/uL (0-0.2); COMPLETE YES; HEMATOCRIT 42.8 % (37-47); LYMPH % 4.8 %; MEAN CELL VOLUME 92.4 fL (80-100); MEAN CORPUSCULAR HEMOGLOBIN 30.5 pg (25-34); MEAN CORPUSCULAR HGB CONC 32.9 g/dl (32-36); MEAN PLATELET VOLUME 11.5 fL (7.4-10.4); MONO % 3.2 %; PLATELET COUNT 281 K/uL (130-400); RED BLOOD COUNT 4.63 M/uL (4.2-5.4); WHITE BLOOD COUNT 20.68 K/uL (4.8-10.8)
[2016-07-29 09:41] LABS: BUN/CREATININE RATIO 31.3 (10-20); CALCIUM 7.7 mg/dl (8.5-10.1); CREATININE 2.4 mg/dl (0.60-1.20); MAGNESIUM 2.8 mg/dl (1.8-2.4); POTASSIUM 4.4 mmol/L (3.5-5.1)
[2016-07-29 09:50] LABS: BETA-HYDROXYBUTYRATE 1.16 mg/dL (0.2-2.81)
--- NOTE | 2016-07-29 15:53 | Cardiology Follow-Up ---
Subjective Date of Service: Jul 29, 2016. Pt evaluation today including: conversation w/ patient, physical exam, lab review, review of studies, review of inpatient medication list, conversation w/ attending History of Present Illness This is a very pleasant but extremely hard of hearing 75-year-old woman with long-standing peripheral arterial disease including bilateral superficial femoral arterial occlusions and chronic claudication. She also has a history of hypertension, hyperlipidemia and diabetes mellitus as well as obesity. She also has a history of chronic obstructive lung disease. She presented with acute bronchitis and exacerbation of COPD but was noted to go into atrial fibrillation. To my knowledge she has no prior history of atrial fibrillation however she was not very symptomatic either in the emergency room or with recurrence so she may have had prior episodes. She was feeling poorly at home for 2 days prior to admission, mostly pulmonary complaints but included shortness of breath. She arrived in the emergency room in sinus rhythm however after treatment with albuterol developed atrial fibrillation with a rapid heart rate. She received intravenous Cardizem and converted back to sinus rhythm, she was admitted on 07/22/2016. She was on sotalol for a short time, and is on Eliquis 5 mg twice a day. She developed recurrent atrial fibrillation, the rate was rapid but she was relatively unaware of it. She was on oral diltiazem, I added digoxin to her regimen. She has continued to have paroxysmal atrial fibrillation however and the rate continues to be fast although she is relatively unaware of it. She is feeling well, her breathing has improved since admission and she had no sensation of palpitations despite a heart rate of about 130 bpm often. She has never had chest discomfort. She has stable dyspnea on exertion and claudication which limits her activities. She is currently tolerating her medications very well. Social History Smoking Status: Former Smoker History of Alcohol Use: No Review of Systems Respiratory: + dyspnea on exertion, + see HPI Cardiac: + see HPI, No PND, No chest pain, No edema, No orthopnea, No palpitations Medications Cardiovascular: Item Value Date Time Metoprolol 12.5 mg 07/29/16 1445 Tartrate TID/PO (Lopressor Tab) Diltiazem HCl 125 125 ml @ 15 mls/hr 07/28/16 1845 mg/Dextrose .[id number] PRN/IV 07/29/16 0219 Digoxin 0.125 mg 07/27/16 1600 (Lanoxin Tab) DAILY@16/PO 07/28/16 1557 Losartan Potassium 50 mg 07/26/16 2100 (coZAAR TAB) BID/PO 07/29/16 0808 Hydralazine HCl 10 mg 07/25/16 1745 (HydrALAZINE INJ) Q6H PRN/IV. 07/28/16 0549 Simvastatin 40 mg 07/22/16 2100 (Zocor Tab) HS/PO 07/28/16 2043 Aspirin 81 mg 07/22/16 0900 (Ecotrin Tab) DAILY/PO 07/29/16 0807 Apixaban 5 mg 07/22/16 0900 (Eliquis Tab) BID/PO 07/29/16 0807 Objective Vital Signs Past 12 Hours Date Time Temp Pulse Resp B/P Pulse Ox O2 Delivery O2 Flow Rate FiO2 07/29/16 15:12 36.8 76 18 128/76 98 07/29/16 12:00 Nasal Cannula 2.0 07/29/16 11:29 69 16 96 Nasal Cannula 2.0 07/29/16 11:20 36.4 87 16 138/59 97 2.0 07/29/16 08:36 140 157/53 07/29/16 07:26 36.7 107 16 157/53 94 2.0 07/29/16 07:24 79 16 94 Nasal Cannula 2.0 07/29/16 07:00 Nasal Cannula 2.0 07/29/16 05:24 76 153/64 07/29/16 04:00 96 Nasal Cannula 2.0 07/29/16 03:56 36.4 78 22 147/70 96 Nasal Cannula 2.0 Last Recorded Weight-Kilograms: 90.400 Intake & Output 8-Hour Column 07/28/16 07/29/16 07/29/16 16:00 00:00 08:00 Intake Total 411 ml 325 ml 207 ml Balance 411 ml 325 ml 207 ml 24-Hour Column 07/29/16 08:00 Intake Total 943 ml Balance 943 ml Physical Exam Constitutional: General Apperance: overweight Level of Distress: mild distress Lungs: Respiratory effort: good air movement Auscultation: expiratory wheezing (bilateral) Cardiovascular: Heart Auscultation: RRR, no murmurs, no rubs, no gallops Peripheral Pulses: Bruits: none appreciated Extremities: no edema Data Laboratory Results: Last 24 Hours Test 07/29/16 08:47 White Blood Count 20.68 K/uL Red Blood Count 4.63 M/uL Hemoglobin 14.1 g/dL Hematocrit 42.8 % Mean Corpuscular Volume 92.4 fL Mean Corpuscular Hemoglobin 30.5 pg Mean Corpuscular Hemoglobin Concent 32.9 g/dl Platelet Count 281 K/uL Mean Platelet Volume 11.5 fL Neutrophils (%) (Auto) 91.0 % Lymphocytes (%) (Auto) 4.8 % Monocytes (%) (Auto) 3.2 % Eosinophils (%) (Auto) 0.0 % Basophils (%) (Auto) 0.0 % Neutrophils # (Auto) 18.81 K/uL Lymphocytes # (Auto) 1.00 K/uL Monocytes # (Auto) 0.66 K/uL Eosinophils # (Auto) 0.00 K/uL Basophils # (Auto) 0.01 K/uL RDW Standard Deviation 49.9 fL RDW Coefficient of Variation 14.7 % Immature Granulocyte % (Auto) 1.0 % Immature Granulocyte # (Auto) 0.20 K/uL Sodium Level 132 mmol/L Potassium Level 4.4 mmol/L Chloride Level 93 mmol/L Carbon Dioxide Level 22 mmol/L Anion Gap 17.0 mmol/L Blood Urea Nitrogen 75 mg/dl Creatinine 2.40 mg/dl Est Creatinine Clear Calc Drug Dose 20.5 ml/min Estimated GFR () 21.8 Estimated GFR (Non- 18.8 BUN/Creatinine Ratio 31.3 Random Glucose 350 mg/dl Calcium Level 7.7 mg/dl Magnesium Level 2.8 mg/dl Beta-Hydroxybutyric Acid 1.16 mg/dL EKG: The atrial rhythm appears to be typical atrial flutter, initially 2-1 AV block but on a subsequent electrocardiogram this morning atrial flutter, a controlled ventricular response.predominantly. Telemetry reviewed: 2-1 AV conduction with a rapid ventricular response until receiving intravenous beta-blockade, subsequently controlled heart rate. She then converted to sinus rhythm. Assessment and Plan #1. Atrial fibrillation: It is possible that this represents acute atrial fibrillation in the setting of an exacerbation of lung disease and agents which may trigger it, but she is relatively unaware of it and it is more likely I believe that she has paroxysmal atrial fibrillation. Even if the atrial fibrillation was in response to the medications and the exacerbation of lung disease that will probably happen again in the future. I think the safest approach would be to treat her with rate control currently, her rate is better but still somewhat rapid. I would certainly continue anticoagulation for long- term. I believe that Eliquis is a good choice. The heart rate is fast and we do need to try to increase AV anne blocking medications. She is already on digoxin (with a good level) and high doses of diltiazem. Low-dose metoprolol IV this morning was very effective in controlling her heart rate along with the other medications. I am going to start Lopressor 12.5 mg every 8 hours to see if she tolerates it. Although she is currently in sinus rhythm we can at least see whether her lung disease can't tolerate the beta blockade.. I would probably hold off on antiarrhythmic therapy currently although that is an option to minimize her episodes. Another option for her atrial flutter his ablation, she will probably have atrial fibrillation but that we'll most likely be leisure to rate control. It may be difficult to determine her atrial fibrillation burden in the future, however may not be necessary if we can treat her appropriately with rate control and anticoagulation. 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 #2. Risk factors for coronary disease: She has substantial risk factors for coronary artery disease and does have known peripheral atherosclerosis. Her electrocardiogram suggests anterolateral ST depression, this is possibly ischemic due to the heart rate and may suggest underlying coronary artery disease. She is on aspirin, this increases the risk of bleeding substantially in combination with an anticoagulant. Given her peripheral vascular disease however I think it would be reasonable to continue it despite the increased risk of bleeding. #3. Hyperlipidemia: She is treated with statins and should continue. #4. Hypertension: She has quite significant hypertension, part of that may be her acute presentation however she does have left ventricular hypertrophy and risk factors of coronary artery disease and known peripheral vascular disease. Her blood pressure may come under better control with higher doses of rate controlling medications, but she will clearly need other medications as well. Thank you for allowing me to participate in her care.
[2016-07-29] MEDS: DIGOXIN 0.125 MG TAB PO SCH (16:09)
[2016-07-29] MEDS: METOPROLOL TARTRATE 25 MG TAB PO SCH ×2 (16:11→20:57)
[2016-07-29] MEDS ORDERED: NURSING VERBAL MED ORDER ONE ×3 (17:00→22:15)
[2016-07-29] MEDS: SIMVASTATIN 40 MG TAB PO SCH (20:57)
[2016-07-29] MEDS: LORAZEPAM 0.5 MG TAB PO PRN (21:04)
[2016-07-29] MEDS ORDERED: DILTIAZEM HCL INJ 125 MG in DEXTROSE 5% 100ML IV PRN (22:15)
--- NOTE | 2016-07-29 22:24 | PROGRESS NOTE ---
DATE: 07/29/2016 A 75-year-old female, admitted with acute bronchitis with severe exacerbation of her chronic lung disease. She also had atrial fibrillation, rapid ventricular response and also atrial flutter. She is treated for arterial hypertension. She does have anxiety and depression. She is on maximum drug therapy for the exacerbation of her chronic lung disease. There has been a problem in controlling her atrial fibrillation with rapid ventricular response. She has been on multiple medications. Initially, because of the severe bronchospasm that she had we had to discontinue her beta blockers. Actually, sotalol provided excellent control of the arrhythmia. She has been on IV Cardizem. She denied any headache. No dizziness. She denied any chest pain. She does get dyspneic with activity. Most of the time, she is not aware of her arrhythmia. No abdominal pain, no nausea, no vomiting. No problem with her bowel movements or urination. No pain in her back or extremities. No ankle edema. PHYSICAL EXAMINATION: GENERAL: Well-developed, in no distress. VITAL SIGNS: This morning her blood pressure was 157/53, pulse 127 and at times was much higher than that up to 140, respirations 16, temperature 36.7 and oxygen saturation 94% on 2 liters oxygen by nasal cannula. SKIN: Warm and dry. No rash. HEENT: She does have markedly decreased hearing. Oxygen cannula is in place. NECK: No JVD, no adenopathy. HEART: Irregular heart sounds. LUNGS: Bilateral wheezing, but overall the wheezing severity has markedly decreased. ABDOMEN: Soft and benign. EXTREMITIES: No edema, clubbing or cyanosis. TODAY'S LABORATORY TESTS: WBC count 20,680. I think the elevation in her WBC count is related to steroids. There is no sign of ongoing infection. Hemoglobin 14.1, hematocrit 42.8 and platelet count 281,000. Sodium 132, potassium 4.1, chloride 93, CO2 22, BUN 75, creatinine 2.4, glucose 350, calcium 7.7 and magnesium 2.8. ASSESSMENT: 1. Acute bronchitis with severe exacerbation of chronic lung disease. 2. Atrial fibrillation and flutter with rapid ventricular response. 3. Hyperglycemia, related to her steroids. 4. Acute renal insufficiency, most likely related to the diuresis with IV Lasix. 5. Arterial hypertension. PLAN: 1. I spoke with Dr. Flores this morning. We made some adjustments in her medications. She was restarted on low dose metoprolol tartrate orally 12.5 mg every eight hours. Initially, I gave her one dose of metoprolol tartrate only 2.5 mg IV. Actually, her rate came down significantly. The metoprolol has been quite effective. So, at this point, she is continued on the metoprolol tartrate 12.5 mg three times a day. We will gradually cut down on her IV Cardizem. 2. I will place her on sliding scale coverage for her hyperglycemia as long as she is on the high dose of the steroids. 3. Her BUN and creatinine are elevated. We will continue monitoring. No need for any additional diuresis at this point. We will encourage fluid intake. 4. Her condition will be closely monitored. We will monitor all her abnormalities and make the necessary changes. The hope at this time is that the low-dose metoprolol will control her arrhythmia and we will be able to cut down her IV Cardizem. 5. Dr. Flores was also considering the possibility of ablation of her atrial flutter.
[2016-07-29] MEDS ORDERED: GLUCOSE 10 TABS/TUBE PO PRN (22:30)
[2016-07-29] MEDS ORDERED: GLUCAGON FOR INJ 1 MG VIAL SQ PRN (22:30)
[2016-07-29] MEDS ORDERED: GLUCOSE 40% GEL 15 GM TUBE PO PRN (22:30)
[2016-07-29] MEDS ORDERED: DEXTROSE 50% 50 ML SYR IV PRN (22:30)
[2016-07-30] VITALS (16 sets, daily range): BP systolic 141–165; BP diastolic 61–76; PULSE 54–118; TEMP 36.3–36.7; O2SAT 90–96
[2016-07-30] MEDS: METHYLPREDNISOLONE IV 30 MG in SYRINGE 0 ML IV SCH ×2 (00:35→06:34)
[2016-07-30] MEDS: LEVALBUTEROL 1.25MG/3ML NEB INH SCH ×6 (03:23→23:42)
[2016-07-30 06:50] LABS: CALCIUM 7.7 mg/dl (8.5-10.1); CREATININE 2.1 mg/dl (0.60-1.20); POTASSIUM 4.5 mmol/L (3.5-5.1)
[2016-07-30] MEDS: TIOTROPIUM BROMIDE 5 PUFF/90 MCG INH INH SCH (08:49)
[2016-07-30] MEDS: BUDESONIDE/FORMOTEROL FUMARATE 160/4.5 60 PUFFS/INHALER INH SCH ×2 (08:50→20:51)
[2016-07-30] MEDS: ZAFIRLUKAST TAB 20 MG TAB PO SCH ×2 (08:52→20:54)
[2016-07-30] MEDS: APIXABAN 2.5 MG TAB PO SCH ×2 (08:52→20:54)
[2016-07-30] MEDS: RANITIDINE HCL 150 MG TAB PO SCH ×2 (08:52→20:52)
[2016-07-30] MEDS: METOPROLOL TARTRATE 25 MG TAB PO SCH ×3 (08:52→20:52)
[2016-07-30] MEDS: FLUOXETINE HCL 20 MG CAP PO SCH (08:54)
[2016-07-30] MEDS: CETIRIZINE HCL 10 MG TAB PO SCH (08:54)
[2016-07-30] MEDS: ASPIRIN 81 MG ECTAB PO SCH (08:54)
[2016-07-30] MEDS: INSULIN ASPART 100 UNITS/ML 3 ML PEN SC SCH ×4 (09:01→21:00)
--- NOTE | 2016-07-30 09:30 | Cardiology Follow-Up ---
Subjective Date of Service: Jul 30, 2016. Pt evaluation today including: conversation w/ patient, physical exam, lab review, review of studies, review of inpatient medication list History of Present Illness This is a very pleasant but extremely hard of hearing 75-year-old woman with long-standing peripheral arterial disease including bilateral superficial femoral arterial occlusions and chronic claudication. She also has a history of hypertension, hyperlipidemia and diabetes mellitus as well as obesity. She also has a history of chronic obstructive lung disease. She presented with acute bronchitis and exacerbation of COPD but was noted to go into atrial fibrillation. To my knowledge she has no prior history of atrial fibrillation however she was not very symptomatic either in the emergency room or with recurrence so she may have had prior episodes. She was feeling poorly at home for 2 days prior to admission, mostly pulmonary complaints but included shortness of breath. She arrived in the emergency room in sinus rhythm however after treatment with albuterol developed atrial fibrillation with a rapid heart rate. She received intravenous Cardizem and converted back to sinus rhythm, she was admitted on 07/22/2016. She was on sotalol for a short time, and is on Eliquis 5 mg twice a day. She developed recurrent atrial fibrillation, the rate was rapid but she was relatively unaware of it. She was on oral diltiazem, I added digoxin to her regimen. She continued to have paroxysmal atrial fibrillation and flutter however and the rate continued to be fast although she is relatively unaware of it. With addition of beta blockade yesterday she is feeling well, not SOB, maybe a little tired. No palpitations. Social History Smoking Status: Former Smoker History of Alcohol Use: No Review of Systems Respiratory: + dyspnea on exertion, + see HPI Cardiac: + see HPI, No PND, No chest pain, No edema, No orthopnea, No palpitations Medications Cardiovascular: Item Value Date Time Metoprolol 12.5 mg 07/29/16 1445 Tartrate TID/PO 07/30/16 0852 (Lopressor Tab) Digoxin 0.125 mg 07/27/16 1600 (Lanoxin Tab) DAILY@16/PO 07/29/16 1609 Hydralazine HCl 10 mg 07/25/16 1745 (HydrALAZINE INJ) Q6H PRN/IV. 07/28/16 0549 Simvastatin 40 mg 07/22/16 2100 (Zocor Tab) HS/PO 07/29/162056 Aspirin 81 mg 07/22/16 0900 (Ecotrin Tab) DAILY/PO 07/30/16 0854 Apixaban 5 mg 07/22/16 0900 (Eliquis Tab) BID/PO 07/30/16 0852 Objective Vital Signs Past 12 Hours Date Time Temp Pulse Resp B/P Pulse Ox O2 Delivery O2 Flow Rate FiO2 07/30/16 07:25 69 16 96 Nasal Cannula 2.0 07/30/16 07:13 36.3 63 16 158/61 96 2.0 07/30/16 04:00 Nasal Cannula 2.0 07/30/16 03:47 36.5 64 20 148/63 95 Nasal Cannula 2.0 07/30/16 03:24 66 16 93 Nasal Cannula 2.0 07/30/16 00:00 36.3 61 20 144/66 95 Nasal Cannula 2.0 07/30/16 00:00 Nasal Cannula 2.0 07/29/16 23:52 57 16 95 Nasal Cannula 2.0 Last Recorded Weight-Kilograms: 90.900 Intake & Output 8-Hour Column 07/29/16 07/30/16 07/30/16 16:00 00:00 08:00 Intake Total 433 ml 445 ml 300 ml Output Total 300 ml 400 ml Balance 433 ml 145 ml -100 ml 24-Hour Column 07/30/16 08:00 Intake Total 1178 ml Output Total 700 ml Balance 478 ml Physical Exam Constitutional: General Apperance: overweight Level of Distress: mild distress Lungs: Respiratory effort: good air movement Auscultation: expiratory wheezing (bilateral) Cardiovascular: Heart Auscultation: RRR, no murmurs, no rubs, no gallops Peripheral Pulses: Bruits: none appreciated Extremities: no edema Data Laboratory Results: Last 24 Hours Test 07/29/16 22:15 07/30/16 05:55 07/30/16 06:00 07/30/16 07:03 Bedside Glucose 259 mg/dl 195 mg/dl Sodium Level 133 mmol/L Potassium Level 4.5 mmol/L Chloride Level 95 mmol/L Carbon Dioxide Level 24 mmol/L Anion Gap 14.0 mmol/L Blood Urea Nitrogen 86 mg/dl Creatinine 2.10 mg/dl Est Creatinine Clear Calc Drug Dose 23.5 ml/min Estimated GFR () 25.7 Estimated GFR (Non- 22.1 BUN/Creatinine Ratio 41.0 Random Glucose 226 mg/dl Calcium Level 7.7 mg/dl Telemetry reviewed: Continues with intermittent atrial flutter, rate is better , now in SR Assessment and Plan #1. Atrial fibrillation/flutter: It is possible that this represents acute atrial fibrillation in the setting of an exacerbation of lung disease and agents which may trigger it, but it has continued and she is relatively unaware of it and it is more likely I believe that she has paroxysmal atrial fibrillation/flutter. Even if the atrial fibrillation was in response to the medications and the exacerbation of lung disease that will probably happen again in the future. I think the safest approach would be to treat her with rate control currently, her rate is better but still somewhat rapid. I would certainly continue anticoagulation for long-term. I believe that Eliquis is a good choice. At the moment she is doing well on beta vaughn and digoxin although some diltiazem effect may be present. Should watch for recurrence and see if HR is OK. Another option for her atrial flutter is ablation, she will probably have atrial fibrillation but that we'll most likely be easier to rate control. It may be difficult to determine her atrial fibrillation burden in the future, however may not be necessary if we can treat her appropriately with rate control and anticoagulation. We probably should consider some form of termite control representative monitoring when she is over her present episode. #2. Risk factors for coronary disease: She has substantial risk factors for coronary artery disease and does have known peripheral atherosclerosis. Her electrocardiogram suggests anterolateral ST depression, this is possibly ischemic due to the heart rate and may suggest underlying coronary artery disease. She is on aspirin, this increases the risk of bleeding substantially in combination with an anticoagulant. Given her peripheral vascular disease however I think it would be reasonable to continue it despite the increased risk of bleeding. #3. Hyperlipidemia: She is treated with statins and should continue. #4. Hypertension: She has quite significant hypertension, part of that may be her acute presentation however she does have left ventricular hypertrophy and risk factors of coronary artery disease and known peripheral vascular disease. Her blood pressure may come under better control with higher doses of rate controlling medications, but she will clearly need other medications as well. Her BP seems somewhat labile currently. Thank you for allowing me to participate in her care.
--- NOTE | 2016-07-30 09:43 | PROGRESS NOTE ---
DATE: 07/30/2016 SUBJECTIVE: The patient is sitting out of bed in the chair eating breakfast this morning, states she feels considerably better. Her rhythm was converted to a normal sinus rhythm last night. She states from a respiratory standpoint, she is considerably improved. She denies cough or chest pain, fevers or night sweats. She states she slept fairly well. According to nurses' notes, she continues to be in a normal sinus rhythm. Cardizem drip was stopped. She was watching TV last night at 1934 hours with no particular problems. OBJECTIVE: VITAL SIGNS: Her blood pressure 158/61, pulse 63 and regular, respiratory rate 16, oxygen saturation 96% on 2 liters and she is afebrile. I\T\O is 1085 in and 300 out. Weight is 90.9 kilograms that is up from 89.1 kilograms on the 16th. HEENT: Unremarkable. She has hearing aids bilaterally. No thrush is noted. No adenopathy is noted. HEART: Regular rate and rhythm. I do not detect any murmurs. Second heart sound I thought was normal. LUNGS: Reveal decreased breath sounds, otherwise are clear. ABDOMEN: Soft and obese, nontender. EXTREMITIES: She has no cyanosis, clubbing or edema. LABORATORY DATA: CBC is pending. PRP looks good with a potassium of 4.5, BUN is 86, creatinine 2.1. Blood cultures are negative. Chest discomfort on the 14th noted. IMPRESSION: 1. Chronic obstructive pulmonary disease with exacerbation. 2. Cardiac arrhythmia, atrial fibrillation flutter, converted. 3. Chronic kidney disease. 4. Diabetes mellitus. RECOMMENDATIONS: 1. At this point, I think she probably be placed on prednisone at 20 mg a day with a taper over about a week to 10 days. 2. Continue on the Spiriva, Zyrtec. 3. Follow the digoxin level. 4. Continue on the Symbicort 160/4.5 two puffs b.i.d. with a mouth rinse. This seems to have worked fairly well. I do not believe it will increase her risk of cardiac arrhythmia. She can use Xopenex by way of nebulizer 4 times a day just p.r.n. now. Overall, she is improving.
[2016-07-30 10:55] LABS: BASO ABS # 0.01 K/uL (0-0.2); COMPLETE YES; HEMATOCRIT 41.5 % (37-47); IG% 1.3 %; LYMPH % 3.4 %; LYMPH ABS # 0.75 K/uL (1.2-3.4); MEAN CORPUSCULAR HEMOGLOBIN 31.8 pg (25-34); MEAN CORPUSCULAR HGB CONC 34.2 g/dl (32-36); MEAN PLATELET VOLUME 12.1 fL (7.4-10.4); MONO % 6.4 %; NEUT % 88.9 %; PLATELET COUNT 224 K/uL (130-400); RED BLOOD COUNT 4.46 M/uL (4.2-5.4); WHITE BLOOD COUNT 21.89 K/uL (4.8-10.8)
[2016-07-30] MEDS: METHYLPREDNISOLONE IV 20 MG in SYRINGE 0 ML IV SCH ×2 (13:00→19:45)
[2016-07-30] MEDS: DIGOXIN 0.125 MG TAB PO SCH (15:31)
[2016-07-30] MEDS: SIMVASTATIN 40 MG TAB PO SCH (20:52)
[2016-07-30] MEDS: LORAZEPAM 0.5 MG TAB PO PRN (21:02)
--- NOTE | 2016-07-30 21:10 | PROGRESS NOTE ---
DATE: 07/30/2016 A 75-year-old female admitted with acute bronchitis with severe exacerbation of her chronic lung disease. She also had atrial fibrillation with rapid ventricular response. Subsequently, she also had atrial flutter. She is treated for arterial hypertension and chronic obstructive pulmonary disease and hyperlipidemia. Overall, her condition improved. We had some difficulty controlling her atrial fibrillation with rapid ventricular response. The acute exacerbation of her lung disease has played a role in the difficulty and the severity of her rhythm and rate. The patient was on metoprolol succinate prior to her admission, mostly for the treatment of her arterial hypertension. She has not had any previously documented atrial fibrillation and flutter. Initially she was treated with IV Cardizem. She had multiple times where she converted back to sinus rhythm, but the atrial fibrillation and flutter continued to recur. She was treated with sotalol. This provided an excellent control of her rate and rhythm but unfortunately her wheezing increased significantly, so the sotalol was discontinued. She was started back on Cardizem. Also she was seen in cardiology consultation by Dr. Flores. Digoxin was added to her regimen. From a pulmonary standpoint, she had persistent bronchospasm and she was seen in pulmonary consultation by Dr. Lucho Galvez. He adjusted her drug regimen and her condition started to improve, especially with a combination of treatment of her COPD and discontinuation of sotalol. On digoxin and diltiazem she continued to have atrial fibrillation with rapid ventricular response up to 140. After discussion with Dr. Flores, the recommendation from him was to try the metoprolol. We tried first a low dose of 2.5 mg IV and that had a significantly beneficial effect. So she was placed on oral regimen of 12.5 mg every 8 hours. Since then she has not had any recurrent atrial fibrillation or flutter and she has been in a sinus rhythm. Her condition has markedly improved. Her wheezing has decreased, but not resolved. Her atrial fibrillation and flutter have not reoccurred. Because of the high dose of the Solu-Medrol 40 mg every 6 hours, patient developed significant hyperglycemia and she was placed on a sliding scale coverage. Also, her WBC count is elevated and I think it is related to the steroids. She is resting comfortably. She was sitting in her chair at bedside. She denied any headache. No dizziness. No chest pain. Her dyspnea has markedly improved. She is ambulating in the hallway. Denied any abdominal pain. No nausea, no vomiting. She is tolerating her diet well. No urinary problem. No pain in her back or extremities. No ankle edema. PHYSICAL EXAMINATION: GENERAL: Well-developed in no distress. VITAL SIGNS: Blood pressure 158/61, pulse 63, respirations 16, temperature 36.3, oxygen saturation 96% on 2 liter oxygen by nasal cannula. SKIN: Warm and dry. No rash. HEENT: No mucosal abnormality. NECK: Supple. No JVD. HEART: Regular heart sounds. LUNGS: Bilateral scattered wheezing. ABDOMEN: Soft, nontender. BACK: No spinal tenderness. EXTREMITIES: No edema, clubbing, or cyanosis. TODAY'S LABORATORY TESTS: WBC count 21,890, hemoglobin 14.2, hematocrit 41.5, platelet count 224,000. Sodium 133, potassium 4.5, chloride 95, CO2 24, BUN 86, creatinine 2.1, glucose 226, calcium 7.7. ASSESSMENT: 1. Acute bronchitis with severe exacerbation of her chronic lung disease. 2. Obstructive chronic lung disease. 3. Atrial fibrillation and flutter with rapid ventricular response. 4. Arterial hypertension. 5. Anxiety and depression. PLAN: 1. Overall, her condition is improved. 2. Continuing the same medications, but I will start cutting down on her steroids as recommended by Dr. Galvez. We will try to put her on a Sterapred as an outpatient with a tapering dose. 3. We will continue her metoprolol at the same dose right now, but eventually we will change it to 25 mg twice a day as long as she is tolerating especially from a respiratory standpoint. 4. Continue ambulation. 5. If her condition continues to improve, anticipating discharging her home with home health.
[2016-07-31] MEDS: METHYLPREDNISOLONE IV 20 MG in SYRINGE 0 ML IV SCH ×2 (02:15→07:26)
[2016-07-31] MEDS: LEVALBUTEROL 1.25MG/3ML NEB INH SCH ×2 (03:26→07:06)
[2016-07-31 03:27] VITALS: PULSE 107; O2SAT 91
[2016-07-31 04:00] VITALS: BP 148/77; PULSE 98; TEMP 36.8; O2SAT 95
[2016-07-31 07:07] LABS: HEMATOCRIT 45.3 % (37-47); MEAN CELL VOLUME 91.1 fL (80-100); MEAN PLATELET VOLUME 11.6 fL (7.4-10.4); PLATELET COUNT 280 K/uL (130-400); RED BLOOD COUNT 4.97 M/uL (4.2-5.4); WHITE BLOOD COUNT 23.49 K/uL (4.8-10.8)
[2016-07-31 07:08] VITALS: PULSE 120; O2SAT 92
[2016-07-31] MEDS: ZAFIRLUKAST TAB 20 MG TAB PO SCH (07:28)
[2016-07-31] MEDS: FLUOXETINE HCL 20 MG CAP PO SCH (07:29)
[2016-07-31] MEDS: ASPIRIN 81 MG ECTAB PO SCH (07:29)
[2016-07-31] MEDS: METOPROLOL TARTRATE 25 MG TAB PO SCH (07:29)
[2016-07-31] MEDS: APIXABAN 2.5 MG TAB PO SCH (07:30)
[2016-07-31] MEDS: CETIRIZINE HCL 10 MG TAB PO SCH (07:30)
[2016-07-31] MEDS: TIOTROPIUM BROMIDE 5 PUFF/90 MCG INH INH SCH (07:31)
[2016-07-31] MEDS: BUDESONIDE/FORMOTEROL FUMARATE 160/4.5 60 PUFFS/INHALER INH SCH (07:31)
[2016-07-31] MEDS: RANITIDINE HCL 150 MG TAB PO SCH (07:31)
[2016-07-31 07:39] LABS: BASO % 0.1 %; BASO ABS # 0.03 K/uL (0-0.2); COMPLETE YES; IG% 2.9 %; LYMPH % 4.1 %; LYMPH ABS # 0.97 K/uL (1.2-3.4); MONO % 6.8 %; NEUT % 86.1 %
[2016-07-31 07:42] VITALS: BP 147/82; PULSE 130; TEMP 36.4; O2SAT 91
[2016-07-31 07:54] LABS: BUN/CREATININE RATIO 44.4 (10-20); CALCIUM 8.4 mg/dl (8.5-10.1); CREATININE 1.4 mg/dl (0.60-1.20); POTASSIUM 4.6 mmol/L (3.5-5.1)
[2016-07-31] MEDS: INSULIN ASPART 100 UNITS/ML 3 ML PEN SC SCH ×2 (08:04→11:00)
--- NOTE | 2016-07-31 08:05 | PROGRESS NOTE ---
DATE: 07/31/2016 The patient is better each day. She was ambulating last night in the hallway, slowly, twice around the paulino without difficulty. She continues to have wheezing, especially with expiration on exam, but her cough is improved. She states she is 100% better than she was at the time of admission. Her oxygen saturation 92% to 95% on room air. Pulse is 100 and regular, respiratory rate 16, blood pressure 148/78. She received a breathing treatment at 7:00 a.m. and tolerated that well. Weight 90.7 kilograms, which is relatively stable, although up from 89.2 kilograms on the . According to nurses' note she had a fairly good night last night without difficulty. HEENT: Unremarkable, no thrush noted. NECK: No neck vein distention or HJR. HEART: Regular rate and rhythm. LUNGS: Reveal some expiratory wheezing, which is worse with forced expiration. However, it is improved every day. ABDOMEN: Soft, nontender. EXTREMITIES: She has no cyanosis, clubbing or edema and there is no evidence of DVT. White count 23.49, hemoglobin 15.4. PRP is pending. Sugars have been under fairly good control. IMPRESSION: 1. Chronic obstructive pulmonary disease with exacerbation. 2. Paroxysmal atrial fibrillation. 3. Gastroesophageal reflux disease. RECOMMENDATIONS: At this point, from a pulmonary standpoint, the patient is doing well. I think oral prednisone will be appropriate now. I would continue on the Lopressor and follow her for wheezing. She should continue on her other inhalers as well as an outpatient. I will sign off on the patient now since from a pulmonary standpoint she is improving nicely. Dr. Puentes will be on service next week if needed.
--- NOTE | 2016-07-31 08:33 | Cardiology Follow-Up ---
Subjective Date of Service: Jul 31, 2016. Pt evaluation today including: conversation w/ patient, physical exam, lab review, review of studies History of Present Illness This is a very pleasant but extremely hard of hearing 75-year-old woman with long-standing peripheral arterial disease including bilateral superficial femoral arterial occlusions and chronic claudication. She also has a history of hypertension, hyperlipidemia and diabetes mellitus as well as obesity. She also has a history of chronic obstructive lung disease. She presented with acute bronchitis and exacerbation of COPD but was noted to go into atrial fibrillation. To my knowledge she has no prior history of atrial fibrillation however she was not very symptomatic either in the emergency room or with recurrence so she may have had prior episodes. She was feeling poorly at home for 2 days prior to admission, mostly pulmonary complaints but included shortness of breath. She arrived in the emergency room in sinus rhythm however after treatment with albuterol developed atrial fibrillation with a rapid heart rate. She received intravenous Cardizem and converted back to sinus rhythm, she was admitted on 07/22/2016. She was on sotalol for a short time, and is on Eliquis 5 mg twice a day. She developed recurrent atrial fibrillation, the rate was rapid but she was relatively unaware of it. She was on oral diltiazem, I added digoxin to her regimen. She continued to have paroxysmal atrial fibrillation and flutter however and the rate continued to be fast although she is relatively unaware of it. With addition of beta blockade in addition to her diltiazem and digoxin her heart rate was very well controlled, however her digoxin and her diltiazem have been discontinued. She is currently only on metoprolol tartrate 12.5 mg 3 times a day. Today she has no specific complaints, while out of bed she was quite tachycardic in atrial flutter. She was placed back in bed and the rate dropped appropriately. Social History Smoking Status: Former Smoker History of Alcohol Use: No Review of Systems Respiratory: + dyspnea on exertion, + see HPI Cardiac: + see HPI, No PND, No chest pain, No edema, No orthopnea, No palpitations Medications Cardiovascular: Item Value Date Time Metoprolol 12.5 mg 07/29/16 1445 Tartrate TID/PO 07/31/16 0729 (Lopressor Tab) Hydralazine HCl 10 mg 07/25/16 1745 (HydrALAZINE INJ) Q6H PRN/IV. 07/28/16 0549 Simvastatin 40 mg 07/22/16 2100 (Zocor Tab) HS/PO 07/30/162051 Aspirin 81 mg 07/22/16 0900 (Ecotrin Tab) DAILY/PO 07/31/16728 Apixaban 5 mg 07/22/16 0900 (Eliquis Tab) BID/PO 07/31/16 0730 Objective Vital Signs Past 12 Hours Date Time Temp Pulse Resp B/P Pulse Ox O2 Delivery O2 Flow Rate FiO2 07/31/16 07:42 36.4 130 16 147/82 91 Room Air 07/31/16 07:08 120 16 92 Room Air 07/31/16 04:00 36.8 98 20 148/77 95 Room Air 07/31/16 04:00 Room Air 07/31/16 03:27 107 16 91 Room Air 07/30/16 23:59 Room Air 07/30/16 23:55 36.7 96 18 142/76 95 Room Air 07/30/16 23:42 73 16 90 Room Air Last Recorded Weight-Kilograms: 90.700 Intake & Output 8-Hour Column 07/30/16 07/31/16 07/31/16 16:00 00:00 08:00 Intake Total 275 ml 300 ml 50 ml Output Total 600 ml Balance -325 ml 300 ml 50 ml 24-Hour Column 07/31/16 08:00 Intake Total 625 ml Output Total 600 ml Balance 25 ml Physical Exam Constitutional: General Apperance: overweight Level of Distress: mild distress Lungs: Respiratory effort: good air movement Auscultation: expiratory wheezing (bilateral) Cardiovascular: Heart Auscultation: no murmurs, no rubs, no gallops, tachycardia Peripheral Pulses: Bruits: none appreciated Extremities: no edema Data Laboratory Results: Last 24 Hours Test 07/30/16 11:25 07/30/16 16:07 07/30/16 20:02 07/31/16 06:20 Bedside Glucose 253 mg/dl 138 mg/dl 169 mg/dl White Blood Count 23.49 K/uL Red Blood Count 4.97 M/uL Hemoglobin 15.4 g/dL Hematocrit 45.3 % Mean Corpuscular Volume 91.1 fL Mean Corpuscular Hemoglobin 31.0 pg Mean Corpuscular Hemoglobin Concent 34.0 g/dl Platelet Count 280 K/uL Mean Platelet Volume 11.6 fL Neutrophils (%) (Auto) 86.1 % Lymphocytes (%) (Auto) 4.1 % Monocytes (%) (Auto) 6.8 % Eosinophils (%) (Auto) 0.0 % Basophils (%) (Auto) 0.1 % Neutrophils # (Auto) 20.23 K/uL Lymphocytes # (Auto) 0.97 K/uL Monocytes # (Auto) 1.59 K/uL Eosinophils # (Auto) 0.00 K/uL Basophils # (Auto) 0.03 K/uL RDW Standard Deviation 48.6 fL RDW Coefficient of Variation 14.5 % Immature Granulocyte % (Auto) 2.9 % Immature Granulocyte # (Auto) 0.67 K/uL Red Blood Cell Morphology Unremarkable Sodium Level 137 mmol/L Potassium Level 4.6 mmol/L Chloride Level 99 mmol/L Carbon Dioxide Level 24 mmol/L Anion Gap 14.0 mmol/L Blood Urea Nitrogen 62 mg/dl Creatinine 1.40 mg/dl Est Creatinine Clear Calc Drug Dose 35.2 ml/min Estimated GFR () 41.9 Estimated GFR (Non- 36.2 BUN/Creatinine Ratio 44.4 Random Glucose 198 mg/dl Calcium Level 8.4 mg/dl Test 07/31/16 06:51 Bedside Glucose 184 mg/dl Telemetry reviewed: Periods of sinus rhythm alternating with periods of atrial flutter often with very rapid heart rates (2-1 AV conduction) Assessment and Plan #1. Atrial fibrillation/flutter: It is possible that this represents acute atrial fibrillation in the setting of an exacerbation of lung disease and agents which may trigger it, but it has continued and she is relatively unaware of it and it is more likely I believe that she has paroxysmal atrial fibrillation/flutter. Even if the atrial fibrillation was in response to the medications and the exacerbation of lung disease that will probably happen again in the future. I think the safest approach would be to treat her with rate control currently, her rate is better but still somewhat rapid. I would certainly continue anticoagulation for long-term. I believe that Eliquis is a good choice. At the moment she does not have good control of her heart rate, on metoprolol alone she continues to have intermittent atrial fibrillation at rapid heart rate. She is going to need something in addition to beta blockade, I 'm not sure whether we will be able to get her heart rate under adequate control but I am going to add diltiazem to her regimen again, to give along with metoprolol. Another option for her atrial flutter is ablation, she will probably have atrial fibrillation but that we'll most likely be easier to rate control. At the moment is looking more like we have to strongly consider flutter ablation. #2. Risk factors for coronary disease: She has substantial risk factors for coronary artery disease and does have known peripheral atherosclerosis. Her electrocardiogram suggests anterolateral ST depression, this is possibly ischemic due to the heart rate and may suggest underlying coronary artery disease. She is on aspirin, this increases the risk of bleeding substantially in combination with an anticoagulant. Given her peripheral vascular disease however I think it would be reasonable to continue it despite the increased risk of bleeding. #3. Hyperlipidemia: She is treated with statins and should continue. #4. Hypertension: She has quite significant hypertension, part of that may be her acute presentation however she does have left ventricular hypertrophy and risk factors of coronary artery disease and known peripheral vascular disease. Her blood pressure may come under better control with higher doses of rate controlling medications, but she will clearly need other medications as well. Her BP seems borderline high currently, addition of diltiazem may help bring this into control. Thank you for allowing me to participate in her care.
[2016-07-31] MEDS ORDERED: DILTIAZEM HCL 120 MG CAPCR PO SCH (09:00)
[2016-07-31] MEDS ORDERED: LEValbuterol HFA 15GM INHALER INH SCH (09:00)
[2016-07-31] MEDS ORDERED: METOPROLOL TARTRATE 25 MG TAB PO ONE (09:15)
[2016-07-31] MEDS ORDERED: FLUO20CA36 PO (09:52)
[2016-07-31] MEDS ORDERED: SPRIN INH (09:52)
[2016-07-31] MEDS ORDERED: PRED5PAK3 PO (09:52)
[2016-07-31] MEDS ORDERED: Levalbuterol INH (09:52)
[2016-07-31] MEDS ORDERED: ATV5 PO (09:52)
[2016-07-31] MEDS ORDERED: LPR25 PO (09:52)
[2016-07-31] MEDS ORDERED: CRDCD120 PO (09:52)
[2016-07-31] MEDS ORDERED: ACCL20 PO (09:52)
[2016-07-31] MEDS ORDERED: ELQ25 PO (09:52)
[2016-07-31] MEDS ORDERED: ZYR10 PO (09:52)
[2016-07-31] MEDS ORDERED: LNX125 PO (09:52)
--- NOTE | 2016-07-31 10:01 | Discharge Instructions ---
Discharge Instructions Admission Reason for Admission: ACUTE EXACERBATION OF CHRONIC OBSTRUCTIVE PULMONARY DISEASE. SEVERE ACUTE BRONCHITIS ATRIAL FIBRILLATION AND FLUTTER WITH RAPID VENTRICULAR RESPONSE ARTERIAL HYPERTENSION ANXIETY DEPRESSION HYPERCHOLESTEROLEMIA DYSPEPSIA Discharge Discharge Diagnosis / Problem: ACUTE EXACERBATION OF CHRONIC LUNG DISEASE. ATRIAL FIBRILLATION/FLUTTER Discharge Goals Goal(s): Decrease discomfort, Improve function, Increase independence, Improve disease control, Improve nutritional status, Learn about illness Activity Recommendations Activity Limitations: as noted below Exercise/Sports Limitations: gradually increase as tolerated . Instructions / Follow-Up Instructions / Follow-Up DR WINTERS. HIS OFFICE WILL CALL YOU DR WAY 08/04/2016. CALL FOR APPOINTMENT HOME HEALTH NURSING VISITS Current Hospital Diet Patient's current hospital diet: AHA Diet (Heart Healthy) Discharge Diet Recommended Diet: AHA Diet (Heart Healthy) Pending Studies Studies pending at discharge: no Laboratory Results Hemoglobin A1c Test 05/23/16 08:30 Range/Units Estimated Average Glucose 131 mg/dl Hemoglobin A1c 6.2 H 4.5-5.6 % Lipid Panel Test 05/23/16 08:30 Range/Units Triglycerides Level 242 H 0-150 mg/dl Cholesterol Level 161 0-200 mg/dl HDL Cholesterol 51 mg/dl LDL Cholesterol Direct 92 mg/dl Cholesterol/HDL Ratio 3.2 LDL Cholesterol, Calculated mg/dl Medical Emergencies . Who to Call and When: Medical Emergencies: If at any time you feel your situation is an emergency, please call 911 immediately. . Non-Emergent Contact Non-Emergency issues call your: Primary Care Provider . . "Provider Documentation" section prepared by Tanner Way. VTE Core Measure Inpt VTE Proph given/why not?: Other Anticoagulation
[2016-07-31 10:10] VITALS: BP 147/82; PULSE 130; TEMP 36.4; O2SAT 91
--- NOTE | 2016-07-31 14:52 | PROGRESS NOTE ---
DATE: 07/31/2016 HISTORY OF PRESENT ILLNESS: A 75-year-old female admitted with acute bronchitis and severe exacerbation of chronic obstructive pulmonary disease. She also had atrial fibrillation and rapid ventricular response. During her hospitalization, she also had episodes of atrial flutter with rapid response. During her hospitalization, she was seen in cardiology consultation by Dr. Flores. Also seen in pulmonary consultation by Dr. Lucho Galvez. For her cardiac arrhythmias, she has been on multiple medications including metoprolol, Cardizem, digoxin and sotalol. Because of her respiratory status, we had to stop all the beta blockers initially, but subsequently we were able to reintroduce the metoprolol tartrate. She has been on 12.5 mg every 8 hours and that has pretty much controlled her arrhythmia along with the digoxin, but she continues to have breakthrough episodes of atrial fibrillation and flutter with rapid ventricular response. This morning, I spoke with Dr. Flores. She has been on metoprolol. Earlier this morning, I increased her metoprolol tartrate to 25 mg every [address] Flores added Cardizem-CD 120 mg daily. She continues to be on the digoxin 125 mcg daily. Overall, her condition has improved. She denied any headache. No dizziness, no lightheadedness. No chest pain. She has continued to complain of wheezing and shortness of breath but her respiratory status improved remarkably during her stay. No abdominal pain, no nausea, no vomiting. No problem with her bowel movements or urination. No ankle edema. PHYSICAL EXAMINATION: GENERAL: Well developed in no distress. VITAL SIGNS: Blood pressure 147/82, pulse 130, respirations 16, temperature 36.4, oxygen saturation 91% on room air. SKIN: Warm and dry. No rash. HEENT: No mucosal abnormality. NECK: No JVD, no adenopathy. HEART: Regular heart sounds. Tachycardic. LUNGS: She does have expiratory wheezes. ABDOMEN: Soft, nontender. EXTREMITIES: No edema, clubbing, or cyanosis. LABORATORY TESTS: WBC count 23,490. The rise in her WBC count was steroid induced. Hemoglobin 15.4, hematocrit 45.3, platelet count 280,000. Sodium 137, potassium 4.6, chloride 99, CO2 24, BUN 62, creatinine 1.4, glucose 198, calcium 8.4. ASSESSMENT: 1. Acute exacerbation of chronic obstructive pulmonary disease. 2. Acute bronchitis. 3. Atrial fibrillation and flutter with rapid ventricular response. 4. Arterial hypertension. 5. Anxiety and depression. 6. Hypercholesterolemia. PLAN: 1. As noted, her metoprolol dose was increased to 25 mg twice a day. 2. Also, she was started on Cardizem-CD 120 mg daily. 3. Continuing digoxin 125 mcg daily. 4. Continuing her other medications, but I did switch her steroids to oral. She is being continued on the other medications started to improve her respiratory status. 5. I spoke with Dr. Flores this morning. He still thinks at this point that he will consider ablation for her atrial flutter. This can be done as an outpatient. 6. Even when her rate is in the 120 and 130, she is not aware of it and she is completely asymptomatic. 7. We decided to go ahead and send the patient home today. 8. I will see her in the office on . I will be repeating her CBC and a PRP and also check her digoxin level. 9. I also made arrangements for home health nursing. 10. I asked her to restrict her activity and not exert herself and not to drive for now until I see her in the office. She is agreeable to do that.
[2016-07-31] MEDS ORDERED: METOPROLOL TARTRATE 25 MG TAB PO SCH (21:00)
--- NOTE | 2016-08-13 15:40 | DISCHARGE SUMMARY ---
DISCHARGE DIAGNOSES: 1. Acute exacerbation of chronic obstructive pulmonary disease. 2. Severe chronic obstructive pulmonary disease. 3. Acute bronchitis. 4. Atrial fibrillation and flutter with rapid ventricular response. 5. Arterial hypertension. 6. Anxiety. 7. Depression. 8. Hypercholesterolemia. 9. Dyspepsia. DISCHARGE MEDICATIONS: Included: 1. Eliquis 5 mg p.o. twice a day. 2. Cetirizine 10 mg daily. 3. Digoxin 0.125 mg daily. 4. Diltiazem CD 120 mg daily. 5. Fluoxetine 40 mg daily. 6. Xopenex inhaler 2 puffs 4 times a day. 7. Lorazepam 0.5 mg every 6 hours as needed for anxiety. 8. Metoprolol tartrate 25 mg twice a day. 9. Prednisone in the form of Sterapred 10 mg 12-day course to take as directed. 10. Spiriva 1 puff daily. 11. Accolate 20 mg twice a day. CONSULTATIONS: 1. Dr. Aamir Flores in cardiology. 2. Dr. Lucho Galvez in pulmonary medicine. HISTORY OF PRESENT ILLNESS: A 75-year-old female admitted through the Emergency Room with multiple problems including atrial fibrillation with rapid ventricular response, acute bronchitis and acute exacerbation of her chronic lung disease. The patient with arterial hypertension, hyperlipidemia, anxiety and depression, gastroesophageal reflux, chronic obstructive pulmonary disease, peripheral arterial disease. The patient was sick at home for about 2 days prior to her admission. Mostly complaining of severe cough and shortness of breath and wheezing. She denied any fever. No chills. She has been complaining of headache and pressure in her sinuses. Complaining of shortness of breath and wheezing. Producing some phlegm at times. She had no associated nausea, vomiting, or diarrhea. Her shortness of breath became severe and she was brought to the Emergency Room. The patient was given IV medications including Levaquin and Solu-Medrol. She was given high flow treatment with albuterol. She went into atrial fibrillation with rapid ventricular response. She was started on IV Cardizem. I saw the patient in the Emergency Room and she was admitted for further treatment. PAST MEDICAL HISTORY, SOCIAL HISTORY AND FAMILY HISTORY: Were all as noted. ALLERGIES: INTOLERANCE TO PENICILLIN WHICH CAUSED SOME VAGINAL IRRITATION AND INFECTION. MEDICATIONS ON ADMISSION: Were all as noted on her home medication list. PHYSICAL EXAMINATION AND ADMISSION LABORATORY TESTS: Were all as noted. HOSPITAL COURSE: The patient was admitted to PCU telemetry. Resuscitation level 1. All her laboratory tests were ordered. As noted, she was started on IV Cardizem. She was given 2 boluses and started on IV infusion but she converted back to sinus rhythm and she was not started on her infusion after that. She was started on oral Eliquis. The patient was admitted as noted. All her laboratory tests were ordered. The treatment was initiated for acute bronchitis and acute exacerbation of her lung disease. Her condition did not really improve initially. She continues to have shortness of breath, severe, wheezing. She required oxygen. She was continued on her medications. Her steroid dose was increased. She was started on Accolade. Pulmonary consultation was requested. Spiriva was added. She has had recurrence of her atrial fibrillation and rapid ventricular response. She also had episodes of flutter. She was already on metoprolol and this was discontinued and started on sotalol. The sotalol was quite effective in controlling her arrhythmia, but unfortunately she became more short of breath and more wheezing, so she was taken off the sotalol and started again on Cardizem. She was seen in cardiology consultation by Dr. Flores. Digoxin was added. She had recurrence of her atrial fibrillation and she was having more episodes of flutter. Dr. Flores was considering ablation. Once her respiratory status started to improve we were able to reintroduce low dose of metoprolol. It was tolerated. It was quite effective in controlling her arrhythmia. Physical and occupational therapies were ordered. She was tolerating her medications. Tolerating her diet. Her WBC count was elevated. This was thought most likely related to the steroids. Her condition is improved. She was stable. She was discharged home with home health services. Followup in the office. Repeat her laboratory tests in the office.
== END 2016-07-31 11:27 | disposition home health service (06) | DRG 191 ==
LOC: ENRESERVDT → ENRESERVTM → CANRESERV → C.EDB 20:51 → C.2T 07-22 01:55
PROVIDERS: ADMIT Internal Medicine; ATTEND Internal Medicine
DX: J44.1 Chronic obstructive pulmonary disease with (acute) exacerbation (principal); I48.0 Paroxysmal atrial fibrillation; N39.0 Urinary tract infection, site not specified; I48.92 Unspecified atrial flutter; J44.0 Chronic obstructive pulmonary disease with (acute) lower respiratory infection; J20.9 Acute bronchitis, unspecified; I12.9 Hypertensive chronic kidney disease with stage 1 through stage 4 chronic kidney disease, or unspecified chronic kidney disease; N18.9 Chronic kidney disease, unspecified; E11.21 Type 2 diabetes mellitus with diabetic nephropathy; K21.9 Gastro-esophageal reflux disease without esophagitis; M81.0 Age-related osteoporosis without current pathological fracture; I73.9 Peripheral vascular disease, unspecified; F32.9 Major depressive disorder, single episode, unspecified; F41.9 Anxiety disorder, unspecified; Z87.891 Personal history of nicotine dependence; Z88.0 Allergy status to penicillin

== ENCOUNTER → 2016-08-04 | Outpatient (CLI) | payer OTHER ==
[~2016-08-04] MED LIST changes: +ACCL20 PO; -ALBU1AER9 INH; -ANSHCCR PR; +ATV5 PO; +CHOL2000 PO; -CLBCRM30 EXT; +CRDCD120 PO; +ELQ25 PO; +LNX125 PO; -LORA0.5T12 PO; +LPR25 PO; +Levalbuterol INH; +PRED5PAK3 PO; +SPRIN INH; -TPRSR/50 PO; +ZYR10 PO
[2016-08-04 18:12] LABS: BASO % 0.1 %; BASO ABS # 0.03 K/uL (0-0.2); COMPLETE YES; EOS % 0.4 %; HEMATOCRIT 42.5 % (37-47); IG% 2.1 %; LYMPH % 8.6 %; LYMPH ABS # 2.02 K/uL (1.2-3.4); MEAN CELL VOLUME 92.8 fL (80-100); MEAN CORPUSCULAR HEMOGLOBIN 31.7 pg (25-34); MEAN CORPUSCULAR HGB CONC 34.1 g/dl (32-36); MEAN PLATELET VOLUME 12.4 fL (7.4-10.4); MONO % 8.7 %; NEUT % 80.1 %; PLATELET COUNT 211 K/uL (130-400); RED BLOOD COUNT 4.58 M/uL (4.2-5.4); WHITE BLOOD COUNT 23.55 K/uL (4.8-10.8)
[2016-08-04 18:21] LABS: BLOOD UREA NITROGEN 27 mg/dl (7-18); GLUCOSE 143 mg/dl (70-99)
[2016-08-04 18:22] LABS: BUN/CREATININE RATIO 20.7 (10-20); CALCIUM 8.6 mg/dl (8.5-10.1); CARBON DIOXIDE 27 mmol/L (21-32); CHLORIDE 97 mmol/L (98-107); POTASSIUM 4.2 mmol/L (3.5-5.1); SODIUM 136 mmol/L (136-145)
== END | disposition home or self-care (01) ==
LOC: C.LABSPEC 14:25
PROVIDERS: ATTEND Internal Medicine
DX: N18.9 Chronic kidney disease, unspecified (principal); D72.829 Elevated white blood cell count, unspecified

== ENCOUNTER → 2016-09-02 | Outpatient (CLI) | payer OTHER ==
[2016-09-02 15:18] LABS: BASO % 0.4 %; BASO ABS # 0.05 K/uL (0-0.2); COMPLETE YES; EOS % 0.8 %; HEMATOCRIT 34.2 % (37-47); IG% 1.9 %; LYMPH % 15.6 %; LYMPH ABS # 2.02 K/uL (1.2-3.4); MEAN CELL VOLUME 93.7 fL (80-100); MEAN CORPUSCULAR HEMOGLOBIN 30.7 pg (25-34); MEAN CORPUSCULAR HGB CONC 32.7 g/dl (32-36); MEAN PLATELET VOLUME 10.4 fL (7.4-10.4); MONO % 9.3 %; PLATELET COUNT 535 K/uL (130-400); RED BLOOD COUNT 3.65 M/uL (4.2-5.4); WHITE BLOOD COUNT 12.95 K/uL (4.8-10.8)
[2016-09-02 15:25] LABS: BLOOD UREA NITROGEN 16 mg/dl (7-18); BUN/CREATININE RATIO 14.9 (10-20); CALCIUM 8.6 mg/dl (8.5-10.1); CARBON DIOXIDE 25 mmol/L (21-32); CHLORIDE 101 mmol/L (98-107); GLUCOSE 90 mg/dl (70-99); POTASSIUM 3.9 mmol/L (3.5-5.1); SODIUM 136 mmol/L (136-145)
== END | disposition home or self-care (01) ==
LOC: C.LABSPEC 15:05
PROVIDERS: ATTEND Internal Medicine
DX: N18.9 Chronic kidney disease, unspecified (principal); D72.829 Elevated white blood cell count, unspecified

== ENCOUNTER → 2016-09-15 | Outpatient (CLI) | payer OTHER ==
--- NOTE | 2016-09-16 13:31 | MAMMOGRAPHY REPORT ---
BILATERAL DIGITAL SCREENING MAMMOGRAM WITH CAD: 09/15/2016 CLINICAL HISTORY: Routine screening. Patient has no complaints. TECHNIQUE: Current study was also evaluated with a Computer Aided Detection (CAD) system. Bilatera l CC and MLO views were obtained. COMPARISON: Comparison is made to exams dated: 09/15/2015 mammogram, 09/11/2014 mammogram, 09/10/2013 cindy mogram, 08/23/2012 mammogram, 08/20/2010 mammogram, and 08/22/2011 mammogram - [facility] nt. BREAST COMPOSITION: There are scattered areas of fibroglandular density in both breasts. FINDINGS: No suspicious masses, calcifications, or areas of architectural distortion are noted in e ither breast. There has been no significant interval change compared to prior exams. A few scattere d bilateral benign-appearing calcifications are noted. Asymmetry seen within the left lateral poste rior breast on the cc view is stable compared to prior exams including the 2008 exam, and considered benign given long-term stability. IMPRESSION: ACR BI-RADS CATEGORY 2: BENIGN There is no mammographic evidence of malignancy. A 1 year screening mammogram is recommended. The p atient will receive written notification of the results. Approximately 10% of breast cancers are not detected with mammography. A negative mammographic repor t should not delay biopsy if a clinically suggestive mass is present. Kristin Ramirez M.D. ah/:09/15/2016 15:46:55 Spa Assistant Manager: Luz [place] RT(R)(M)(BD), [facility] letter sent: Normal 1/2 BI-RADS Code: ACR BI-RADS Category 2: Benign
== END | disposition home or self-care (01) ==
LOC: C.MAMM 08:41
PROVIDERS: ATTEND Obstetrics & Gynecology
DX: Z12.31 Encounter for screening mammogram for malignant neoplasm of breast (principal)

== ENCOUNTER → 2016-11-09 | Outpatient (CLI) | payer OTHER ==
[~2016-11-09] MED LIST changes: -CRDCD120 PO; +DILT120C50 PO
[2016-11-09 14:01] LABS: CALCIUM 9.1 mg/dl (8.5-10.1)
[2016-11-09 14:02] LABS: BLOOD UREA NITROGEN 18 mg/dl (7-18); BUN/CREATININE RATIO 15.9 (10-20); CARBON DIOXIDE 27 mmol/L (21-32); CHLORIDE 104 mmol/L (98-107); CHOLESTEROL 150 mg/dl (0-200); GLUCOSE 134 mg/dl (70-99); POTASSIUM 4.2 mmol/L (3.5-5.1); SODIUM 137 mmol/L (136-145); TRIGLYCERIDES 296 mg/dl (0-150); VERY LOW DENSITY LIPOPROT CALC 59 mg/dl
[2016-11-09 14:04] LABS: CHOLESTEROL/HDL RATIO 3.6; HDL CHOLESTEROL 42 mg/dl
[2016-11-09 15:08] LABS: ESTIMATED AVERAGE GLUCOSE 137 mg/dl; HA1C FLAG Normal (Normal)
== END | disposition home or self-care (01) ==
LOC: C.LABSPEC 12:16
PROVIDERS: ATTEND Internal Medicine
DX: R73.9 Hyperglycemia, unspecified (principal); N17.9 Acute kidney failure, unspecified; I10 Essential (primary) hypertension; E78.5 Hyperlipidemia, unspecified; E55.9 Vitamin D deficiency, unspecified

== ENCOUNTER → 2017-04-04 | Outpatient (CLI) | payer OTHER ==
[~2017-04-04] MED LIST changes: +CRDCD120 PO; -DILT120C50 PO
[2017-04-04 13:04] LABS: ESTIMATED AVERAGE GLUCOSE 148 mg/dl; HA1C FLAG Normal (Normal)
[2017-04-04 13:05] LABS: BLOOD UREA NITROGEN 18 mg/dl (7-18); BUN/CREATININE RATIO 15.3 (10-20); CARBON DIOXIDE 23 mmol/L (21-32); CHLORIDE 105 mmol/L (98-107); CHOLESTEROL 140 mg/dl (0-200); GLUCOSE 115 mg/dl (70-99); POTASSIUM 4.3 mmol/L (3.5-5.1); SODIUM 138 mmol/L (136-145)
[2017-04-04 13:08] LABS: CHOLESTEROL/HDL RATIO 2.9; HDL CHOLESTEROL 49 mg/dl; TRIGLYCERIDES 222 mg/dl (0-150); VERY LOW DENSITY LIPOPROT CALC 44 mg/dl
--- NOTE | 2017-04-10 10:45 | CODING QUERY MEDICAL NECESSITY ---
SUPPORTING DIAGNOSIS NEEDED Dr. Mela Alvarez, A supporting diagnosis is required for the test/procedure performed on this patient in order for us to be reimbursed by the patient's insurance. Please provide a supporting diagnosis for the following test/procedure listed below next to the test name along with your signature. *If there is no additional diagnosis for this patient that would support the following test/procedure please document that below next to the test/procedure. Test(s)/Procedure(s) that require a supporting diagnosis: * [id number] GLYCATED HEMOGLOBIN DIAGNOSIS: DATE OF SERVICE: 04/04/17 Provider Signature: Date: Thank you Josué Fuentes [facility] Information Management Once completed, please kindly fax back to [phone] For questions please call [phone]
== END | disposition home or self-care (01) ==
LOC: C.LABSPEC 12:36
PROVIDERS: ATTEND Internal Medicine
DX: E66.09 Other obesity due to excess calories (principal); I48.0 Paroxysmal atrial fibrillation; I10 Essential (primary) hypertension

== ENCOUNTER → 2017-08-02 | Outpatient (CLI) | payer OTHER ==
[~2017-08-02] MED LIST changes: -CRDCD120 PO; +DILT-202 PO
[2017-08-02 14:00] LABS: HEMOGLOBIN A1C 6.5 % (4.5-5.6)
[2017-08-02 14:33] LABS: CHOLESTEROL 141 mg/dl (0-200); LDL CHOLESTEROL (DIRECT) 72 mg/dl
== END | disposition home or self-care (01) ==
LOC: C.LABSPEC 12:37
PROVIDERS: ATTEND Internal Medicine
DX: Z00.00 Encounter for general adult medical examination without abnormal findings (principal); E78.5 Hyperlipidemia, unspecified; I10 Essential (primary) hypertension; E11.9 Type 2 diabetes mellitus without complications

== ENCOUNTER → 2017-09-18 | Outpatient (CLI) | payer OTHER ==
--- NOTE | 2017-09-19 15:15 | MAMMOGRAPHY REPORT ---
BILATERAL DIGITAL SCREENING MAMMOGRAM TOMOSYNTHESIS WITH CAD: 09/18/2017 CLINICAL HISTORY: Routine screening. Patient has no complaints. TECHNIQUE: Breast tomosynthesis in addition to standard 2D mammography was performed. Current study was also evaluated with a Computer Aided Detection (CAD) system. COMPARISON: Comparison is made to exams dated: 09/15/2016 mammogram, 09/15/2015 mammogram, 09/11/2014 mamm ogram, 09/10/2013 mammogram, 08/23/2012 mammogram, and 08/22/2011 mammogram - [facility] BREAST COMPOSITION: There are scattered areas of fibroglandular density in both breasts. FINDINGS: There is stable asymmetry in the lateral right breast and scattered benign-appearing calcif ications. No suspicious mass, architectural distortion or cluster of microcalcifications is seen. IMPRESSION: ACR BI-RADS CATEGORY 1: NEGATIVE There is no mammographic evidence of malignancy. A 1 year screening mammogram is recommended. The pa tient will receive written notification of the results. Approximately 10% of breast cancers are not detected with mammography. A negative mammographic report should not delay biopsy if a clinically suggestive mass is present. Beth Bray M.D. ay/:09/18/2017 17:05:44 Senior It Architect: Renae VANEGAS(R)(M), [facility] letter sent: Normal 1/2 BI-RADS Code: ACR BI-RADS Category 1: Negative
== END | disposition home or self-care (01) ==
LOC: C.MAMM 09:40
PROVIDERS: ATTEND Obstetrics & Gynecology
DX: Z12.31 Encounter for screening mammogram for malignant neoplasm of breast (principal)

== ENCOUNTER 2021-05-11 23:04 | Observation (INO) ==
[2021-05-11] MEDS ORDERED: ALBUT/IPRATROP 3MG/0.5MG NEB 3 ML VIAL INH STA (23:37)
[2021-05-11] MEDS ORDERED: NITROGLYCERIN 2% OINTMENT 30GM TUBE EXT STA (23:45)
[2021-05-11] MEDS ORDERED: methylPREDNISolone 125 MG/2 ML VIAL IV STA (23:45)
[2021-05-11 23:51] LABS: Basophils # (auto) 0.03 K/uL (0-0.2); Basophils % (auto) 0.2 %; Eosinophils # (auto) 0.17 K/uL (0-0.5); Eosinophils % (auto) 0.9 %; Hematocrit (blood only) 31.9 % (37-47); Hemoglobin 9.3 g/dL (12.0-16.0); Immature Granulocytes % (auto) 0.5 %; Lymphocytes # (auto) 1.09 K/uL (1.2-3.4); Lymphocytes % (auto) 5.5 %; Mean Corpuscular Hemoglobin 29.1 pg (25-34); Mean Corpuscular Hgb Conc 29.2 g/dL (32-36); Mean Corpuscular Volume 99.7 fL (80-100); Mean Platelet Volume 10.6 fL (7.4-10.4); Monocytes # (auto) 1.33 K/uL (0.11-0.59); Monocytes % (auto) 6.7 %; Neutrophils # (auto) 17.05 K/uL (1.4-6.5); Neutrophils % (auto) 86.2 %; Platelet Count 384 K/uL (130-400); RDW Coefficient of Variation 16.1 % (11.5-14.5); RDW Standard Deviation 58.9 fL (36.4-46.3); White Blood Count 19.77 K/uL (4.8-10.8)
[2021-05-12 00:11] LABS: Alanine Aminotransferase 25 U/L (12-78); Albumin Level 3.5 gm/dl (3.4-5.0); Aspartate Aminotransferase 16 U/L (15-37); BUN Creatinine Ratio 17.1 (10-20); Blood Urea Nitrogen 19 mg/dl (7-18); Calcium 8.8 mg/dl (8.5-10.1); Carbon Dioxide 34 mmol/L (21-32); Chloride 102 mmol/L (98-107); Est GFR (African American) 54.7 ml/min; Est GFR (Non-African American) 47.2 ml/min; Glucose 148 mg/dl (70-99); Magnesium 1.8 mg/dl (1.8-2.4); Potassium 4.1 mmol/L (3.5-5.1); Sodium 139 mmol/L (136-145)
[2021-05-12 00:16] LABS: Albumin Globulin Ratio 0.8 (0.9-2); Alkaline Phosphatase 92 U/L (45-117); Bilirubin,Total 0.5 mg/dl (0.2-1); Globulin 4.3 gm/dl (2.5-4.0); NT Pro B Type Natriuretic Pept 6894 pg/ml (0-1800); Total Protein 7.8 gm/dl (6.4-8.2); Troponin I 0.019 ng/ml (0-0.045)
[2021-05-12] MEDS ORDERED: cefTRIAXone SODIUM 1,000 MG/50 ML BAG IV STA (00:55)
[2021-05-12] MEDS ORDERED: FUROSEMIDE INJ 20 MG/2 ML VIAL IV ONE (00:55)
[2021-05-12 01:01] LABS: Base Excess ABG 4.5 mEq/L (-9-1.8); HCO3 ABG 31 mmol/L (19-24); Oxygen Saturation ABG 94.3 % (90-95); PCO2 ABG 59 mmHg (35-46); PO2 ABG 73 mmHg (80-95); pH ABG 7.34 (7.35-7.45)
--- NOTE | 2021-05-12 01:02 | Emergency Department Note ---
Impression & Plan Hypoxia, Congestive heart failure, Pneumonia ED Provider Note INFORMANT: Patient ED PROVIDER(S): Arahs Butts MD CHIEF COMPLAINT: Shortness of breath PLAN: Disposition: Admitted Condition: Good Outpatient prescription management: none Referral: None MEDICAL DECISION MAKING: Patient presented with shortness of breath. She was requiring supplemental oxygen and was placed on BiPAP. She did well with this. Chest x-ray was performed and was concerning for CHF as well as possible infiltrate. The patient had a leukocytosis on CBC. Chemistry panel was unremarkable. Troponin negative but BNP elevated also concerning for CHF. The patient was given a dose of IV Rocephin. Nitropaste was applied. She was given a DuoNeb and Solu-Medrol as well. The patient was doing much better on reassessment. IV Lasix was ordered. Further management in the hospital will be necessary. Consultation was made with Dr. Walker of the hospitalist service. Patient was evaluated in the ER admitted for further management. Triage Nursing notes reviewed and agree them. Vital Signs: reviewed and remarkable for hypertension Differential diagnosis: Reactive airway disease, pneumonia, pneumothorax, COPD, CHF, infections, cardiac ischemia, pulmonary embolism, musculoskeletal, gastrointestinal, as well as other pathologies. Diagnostics interpreted by me: ECG: Twelve-lead ECG reveals a normal sinus rhythm@[address] present. No ST elevation. Cardiac Monitoring: Cardiac monitoring ordered by me: The patient was placed on continuous cardiac monitoring and observed. It revealed a normal sinus rhythm at 60 beats per minute without ectopy or evidence of dysrhythmia. Imaging studies: Chest x-ray shows cardiomegaly and pulmonary edema. Questionable right-sided infiltrate present. HPI: The patient is a 80 year old female who presents to the Emergency Room with complaints of respiratory distress. This started today and is described as difficulty breathing and an increased oxygen requirement. The patient was using her home oxygen. Her family increased it from 2-4. Then up to 5. The patient was 85% on that increase. EMS was summoned the patient also notes the following associated symptoms, weakness. The patient has had some increased shortness of breath over the last few days. The patient has tried her nebulizer relieving factors. Current pain is rated as 0/10. Patient has history of COPD. She is also anticoagulated. Pt denies LOC, headache, fevers, chills, diaphoresis, visual changes, neck pain, chest pain, nausea, vomiting, abdominal pain, back pain, melena, hematochezia, urinary symptoms, numbness, weakness, lymphadenopathy, rash, or other complaints. ROS: See above HPI for pertinent positives & negatives. A total of 10 systems reviewed and were otherwise negative. PAST MEDICAL HISTORY:See Below , A. fib, COPD PAST SURGICAL HISTORY:See Below, FAMILY HISTORY:See Below SOCIAL HISTORY:See Below, retired HOME MEDICATIONS:See Below ALLERGIES:See Below VITALS:See Below PHYSICAL EXAMINATION: GENERAL: Awake, alert, dyspneic-appearing, in mild distress HENT: Normocephalic, atraumatic. Oropharynx unremarkable. EYES: Normal conjunctiva. Sclera non-icteric. NECK: Inspection normal. Non-tender. Supple. No nuchal rigidity. FROM. No masses. RESPIRATORY: Increased respiratory effort. Poor air movement bilaterally. Scattered rales. Worse on the right. CARDIAC: Normal rate. Normal rhythm. No murmurs. No rubs. Extremities warm and well perfused. Pulses equal. GI: Soft, non-distended. No tenderness to palpation. No rebound or guarding. No masses. RECTAL: Deferred. MUSCULOSKELETAL: Atraumatic. Chest examination reveals no tenderness. The back is symmetrical on inspection without obvious abnormality. There is no CVA tenderness to palpation. No joint edema. LOWER EXTREMITIES: Calves are equal size bilaterally and non-tender. 1-2+ edema. No discoloration. NEURO: Normal sensorium. No sensory or motor deficits noted. SKIN: No rash or jaundice noted. Critical CARE: I have personally spent greater than 32 minutes of critical care time in the direct management of this patient. This includes bedside care, interpretation of diagnostic studies, and testing, discussion with consultants, patient, and family members, and other required patient management activities. These minutes are in excess of all separately billable procedures. Arash Butts MD Past Med/Surg History Medical History (Updated 05/12/21 @ 02:49 by Glenda Walker DO) Anxiety Atrial fibrillation Congestive heart failure COPD (chronic obstructive pulmonary disease) Hyperlipidemia Hypertension Family History Other Family history non-contributory Social History (Updated 05/12/21 @ 02:45 by Glenda Walker DO) Smoking Status: Former smoker Hx Alcohol Use: No Hx Substance Use: No Feels Safe at Home: Yes Allergies Allergies Allergy/AdvReac Type Severity Reaction Status Date / Time Penicillins Allergy Mild GI SYMPTOMS Verified 05/12/21 00:09 Home Meds Home Medications Medication Instructions Recorded Confirmed atorvastatin 40 mg tablet 40 mg PO DAILY 05/12/21 05/12/21 cetirizine 10 mg tablet 10 mg PO DAILY 05/12/21 05/12/21 digoxin 125 mcg (0.125 mg) tablet 125 mcg PO DAILY 05/12/21 05/12/21 diltiazem HCl 240 mg 240 mg PO QAM 05/12/21 05/12/21 capsule,extended release 24 hr fluoxetine 20 mg capsule 20 mg PO DAILY 05/12/21 05/12/21 metformin 500 mg tablet 500 mg PO BID 05/12/21 05/12/21 metoprolol tartrate 50 mg tablet 50 mg PO BID 05/12/21 05/12/21 omeprazole 20 mg capsule,delayed 20 mg PO DAILY 05/12/21 05/12/21 release rivaroxaban 15 mg tablet (Xarelto) 15 mg PO DAILY 05/12/21 05/12/21 zafirlukast 20 mg tablet 20 mg PO BID 05/12/21 05/12/21 Results & Data (ED) Vital Signs Vital Signs - 24 hr 05/11/21 22:58 05/11/21 23:06 05/11/21 23:15 Temperature 37.1 C Temperature Source Oral Pulse Rate 78 78 74 Pulse Rate [Apical] Pulse Rate [Radial] 78 Pulse Rate from SpO2 Sensor 74 Pulse Rhythm Regular Pulse Rhythm [Radial] Regular Pulse Strength Normal Pulse Strength [Radial] Normal Respiratory Rate 26 H 15 15 Respiratory Effort / Characteristics Labored Short of Breath SOB on Exertion Respiratory Depth Retractive Respiratory Pattern Regular Blood Pressure 162/123 H Blood Pressure [Right Arm] 162/123 H Blood Pressure Mean 136 Blood Pressure Mean [Right Arm] 136 Blood Pressure Position Semi-fowlers Blood Pressure Position [Right Arm] Semi-fowlers Pulse Oximetry 100 100 Oxygen Delivery Method Non-rebreather Oxygen Flow Rate 15 Fraction of Inspired Oxygen Sepsis Recent Fever Within 48 Hours No Sepsis New/Unexplained Change in Mental Status No Sepsis Action Taken by Nursing No Action Required 05/11/21 23:21 05/11/21 23:30 05/11/21 23:37 Temperature Temperature Source Pulse Rate 78 69 86 Pulse Rate [Apical] Pulse Rate [Radial] Pulse Rate from SpO2 Sensor 70 Pulse Rhythm Regular Regular Pulse Rhythm [Radial] Pulse Strength Pulse Strength [Radial] Respiratory Rate 26 H 18 26 H Respiratory Effort / Characteristics Respiratory Depth Respiratory Pattern Blood Pressure Blood Pressure [Right Arm] Blood Pressure Mean Blood Pressure Mean [Right Arm] Blood Pressure Position Blood Pressure Position [Right Arm] Pulse Oximetry 100 100 99 Oxygen Delivery Method Non-rebreather Non-rebreather Oxygen Flow Rate Fraction of Inspired Oxygen Sepsis Recent Fever Within 48 Hours Sepsis New/Unexplained Change in Mental Status Sepsis Action Taken by Nursing 05/11/21 23:45 05/11/21 23:53 05/11/21 23:55 Temperature Temperature Source Pulse Rate 67 59 L Pulse Rate [Apical] 60 Pulse Rate [Radial] Pulse Rate from SpO2 Sensor Pulse Rhythm Pulse Rhythm [Radial] Pulse Strength Pulse Strength [Radial] Respiratory Rate 22 23 24 Respiratory Effort / Characteristics Spontaneous Short of Breath SOB on Exertion Spontaneous Short of Breath SOB on Exertion Respiratory Depth Retractive Respiratory Pattern Tachypnea Blood Pressure 135/47 L Blood Pressure [Right Arm] Blood Pressure Mean 76 Blood Pressure Mean [Right Arm] Blood Pressure Position Blood Pressure Position [Right Arm] Pulse Oximetry 60 L 100 Oxygen Delivery Method BiPAP Oxygen Flow Rate Fraction of Inspired Oxygen 50 Sepsis Recent Fever Within 48 Hours Sepsis New/Unexplained Change in Mental Status Sepsis Action Taken by Nursing 05/12/21 00:00 05/12/21 00:15 05/12/21 00:30 Temperature Temperature Source Pulse Rate 61 62 62 Pulse Rate [Apical] Pulse Rate [Radial] Pulse Rate from SpO2 Sensor 61 Pulse Rhythm Pulse Rhythm [Radial] Pulse Strength Pulse Strength [Radial] Respiratory Rate 24 23 26 H Respiratory Effort / Characteristics Respiratory Depth Respiratory Pattern Blood Pressure 145/47 H 139/43 L 133/53 L Blood Pressure [Right Arm] Blood Pressure Mean 79 75 79 Blood Pressure Mean [Right Arm] Blood Pressure Position Blood Pressure Position [Right Arm] Pulse Oximetry 91 Oxygen Delivery Method Oxygen Flow Rate Fraction of Inspired Oxygen 35 Sepsis Recent Fever Within 48 Hours Sepsis New/Unexplained Change in Mental Status Sepsis Action Taken by Nursing 05/12/21 00:45 05/12/21 01:00 05/12/21 01:15 Temperature Temperature Source Pulse Rate 61 59 L 57 L Pulse Rate [Apical] Pulse Rate [Radial] Pulse Rate from SpO2 Sensor 58 L Pulse Rhythm Pulse Rhythm [Radial] Pulse Strength Pulse Strength [Radial] Respiratory Rate 19 22 24 Respiratory Effort / Characteristics Respiratory Depth Respiratory Pattern Blood Pressure 174/78 H 162/59 H Blood Pressure [Right Arm] Blood Pressure Mean 110 93 Blood Pressure Mean [Right Arm] Blood Pressure Position Blood Pressure Position [Right Arm] Pulse Oximetry 90 Oxygen Delivery Method Oxygen Flow Rate Fraction of Inspired Oxygen Sepsis Recent Fever Within 48 Hours Sepsis New/Unexplained Change in Mental Status Sepsis Action Taken by Nursing 05/12/21 01:31 05/12/21 01:37 05/12/21 01:45 Temperature Temperature Source Pulse Rate 60 57 L Pulse Rate [Apical] Pulse Rate [Radial] 58 L Pulse Rate from SpO2 Sensor 60 Pulse Rhythm Pulse Rhythm [Radial] Regular Pulse Strength Pulse Strength [Radial] Respiratory Rate 23 16 27 H Respiratory Effort / Characteristics Non-Labored Respiratory Depth Normal Respiratory Pattern Regular Blood Pressure 170/77 H 156/72 H Blood Pressure [Right Arm] 170/77 H Blood Pressure Mean 108 100 Blood Pressure Mean [Right Arm] 108 Blood Pressure Position Blood Pressure Position [Right Arm] Semi-fowlers Pulse Oximetry 93 94 Oxygen Delivery Method BiPAP Oxygen Flow Rate Fraction of Inspired Oxygen Sepsis Recent Fever Within 48 Hours Sepsis New/Unexplained Change in Mental Status Sepsis Action Taken by Nursing 05/12/21 02:00 05/12/21 02:15 05/12/21 02:30 Temperature Temperature Source Pulse Rate 56 L 55 L 57 L Pulse Rate [Apical] Pulse Rate [Radial] Pulse Rate from SpO2 Sensor 56 L 56 L 57 L Pulse Rhythm Pulse Rhythm [Radial] Pulse Strength Pulse Strength [Radial] Respiratory Rate 22 26 H 22 Respiratory Effort / Characteristics Respiratory Depth Respiratory Pattern Blood Pressure 153/50 H 165/87 H 177/77 H Blood Pressure [Right Arm] Blood Pressure Mean 84 113 110 Blood Pressure Mean [Right Arm] Blood Pressure Position Blood Pressure Position [Right Arm] Pulse Oximetry 91 93 93 Oxygen Delivery Method Oxygen Flow Rate Fraction of Inspired Oxygen Sepsis Recent Fever Within 48 Hours Sepsis New/Unexplained Change in Mental Status Sepsis Action Taken by Nursing Laboratory Data Result diagrams: 05/11/21 23:17 05/11/21 23:17 Lab Results 05/11/21 05/11/21 05/11/21 Range/Units 23:15 23:15 23:17 WBC 19.77 H (4.8-10.8) K/uL RBC 3.20 L (4.2-5.4) M/uL Hgb 9.3 L (12.0-16.0) g/dL Hct 31.9 L (37-47) % MCV 99.7 (80-100) fL MCH 29.1 (25-34) pg MCHC 29.2 L (32-36) g/dL RDW Std Deviation 58.9 H (36.4-46.3) fL RDW Coeff of [place] 16.1 H (11.5-14.5) % Plt Count 384 (130-400) K/uL MPV 10.6 H (7.4-10.4) fL Immature Gran % (Auto) 0.5 % Neut % (Auto) 86.2 % Lymph % (Auto) 5.5 % [place] % (Auto) 6.7 % Eos % (Auto) 0.9 % Baso % (Auto) 0.2 % Neut # (Auto) 17.05 H (1.4-6.5) K/uL Lymph # (Auto) 1.09 L (1.2-3.4) K/uL [place] # (Auto) 1.33 H (0.11-0.59) K/uL Eos # (Auto) 0.17 (0-0.5) K/uL Baso # (Auto) 0.03 (0-0.2) K/uL Immature Gran # (Auto) 0.10 H (0.00-0.02) K/uL ABG pH (7.35-7.45) ABG pCO2 (35-46) mmHg ABG pO2 (80-95) mmHg ABG HCO3 (19-24) mmol/L ABG O2 Saturation (90-95) % ABG Base Excess (-9-1.8) mEq/L Angelo Test (Pos) Barometric Pressure mm/Hg Oxygen Given Sodium (136-145) mmol/L Potassium (3.5-5.1) mmol/L Chloride (98-107) mmol/L Carbon Dioxide (21-32) mmol/L Anion Gap (3-11) BUN (7-18) mg/dl Creatinine (0.6-1.2) mg/dl Est Cr Clr Drug Dosing Est GFR ( Amer) ml/min Est GFR (Non-Af Amer) ml/min BUN/Creatinine Ratio (10-20) Glucose (70-99) mg/dl Calcium (8.5-10.1) mg/dl Magnesium (1.8-2.4) mg/dl Total Bilirubin (0.2-1) mg/dl AST (15-37) U/L ALT (12-78) U/L Alkaline Phosphatase (45-117) U/L Troponin I (0-0.045) ng/ml NT-Pro-B Natriuret Pep (0-1800) pg/ml Total Protein (6.4-8.2) gm/dl Albumin (3.4-5.0) gm/dl Globulin (2.5-4.0) gm/dl Albumin/Globulin Ratio (0.9-2) Urine Color Urine Appearance (Clear) Urine pH (4.5-7.5) Ur Specific [place] (1.000-1.030) Urine Protein (Negative) Urine Glucose (UA) (Negative) Urine Ketones (Negative) Urine Blood (Negative) Urine Nitrite (Negative) Urine Bilirubin (Negative) Urine Urobilinogen (Negative) Ur Leukocyte Esterase (Negative) Urine WBC (Auto) (0-5) /hpf Urine RBC (Auto) (0-4) /hpf U Hyaline Cast (Auto) (0-5) /lpf U Epithel Cells (Auto) (0-5) /lpf Urine Bacteria (Auto) (Negative) Ur Renal Epithelial Cell Granular Casts (0) /lpf COVID-19 Eval Order Covid19 at [facility] SARS-CoV-2 (PCR) NEGATIVE (Negative) 05/11/21 05/12/21 05/12/21 Range/Units 23:17 00:45 01:25 WBC (4.8-10.8) K/uL RBC (4.2-5.4) M/uL Hgb (12.0-16.0) g/dL Hct (37-47) % MCV (80-100) fL MCH (25-34) pg MCHC (32-36) g/dL RDW Std Deviation (36.4-46.3) fL RDW Coeff of [place] (11.5-14.5) % Plt Count (130-400) K/uL MPV (7.4-10.4) fL Immature Gran % (Auto) % Neut % (Auto) % Lymph % (Auto) % [place] % (Auto) % Eos % (Auto) % Baso % (Auto) % Neut # (Auto) (1.4-6.5) K/uL Lymph # (Auto) (1.2-3.4) K/uL [place] # (Auto) (0.11-0.59) K/uL Eos # (Auto) (0-0.5) K/uL Baso # (Auto) (0-0.2) K/uL Immature Gran # (Auto) (0.00-0.02) K/uL ABG pH 7.34 L (7.35-7.45) ABG pCO2 59 H (35-46) mmHg ABG pO2 73 L (80-95) mmHg ABG HCO3 31 H (19-24) mmol/L ABG O2 Saturation 94.3 (90-95) % ABG Base Excess 4.5 H (-9-1.8) mEq/L Angelo Test POS (Pos) Barometric Pressure 737.7 mm/Hg Oxygen Given FIO2 35 Sodium 139 (136-145) mmol/L Potassium 4.1 (3.5-5.1) mmol/L Chloride 102 (98-107) mmol/L Carbon Dioxide 34 H (21-32) mmol/L Anion Gap 3.0 (3-11) BUN 19 H (7-18) mg/dl Creatinine 1.09 (0.6-1.2) mg/dl Est Cr Clr Drug Dosing Not Reportable Est GFR ( Amer) 54.7 ml/min Est GFR (Non-Af Amer) 47.2 ml/min BUN/Creatinine Ratio 17.1 (10-20) Glucose 148 H (70-99) mg/dl Calcium 8.8 (8.5-10.1) mg/dl Magnesium 1.8 (1.8-2.4) mg/dl Total Bilirubin 0.5 (0.2-1) mg/dl AST 16 (15-37) U/L ALT 25 (12-78) U/L Alkaline Phosphatase 92 (45-117) U/L Troponin I 0.019 (0-0.045) ng/ml NT-Pro-B Natriuret Pep 6894 H (0-1800) pg/ml Total Protein 7.8 (6.4-8.2) gm/dl Albumin 3.5 (3.4-5.0) gm/dl Globulin 4.3 H (2.5-4.0) gm/dl Albumin/Globulin Ratio 0.8 L (0.9-2) Urine Color Dark Yellow Urine Appearance Cloudy A (Clear) Urine pH 5.0 (4.5-7.5) Ur Specific [place] 1.026 (1.000-1.030) Urine Protein 2+ H (Negative) Urine Glucose (UA) Negative (Negative) Urine Ketones Trace H (Negative) Urine Blood Negative (Negative) Urine Nitrite Negative (Negative) Urine Bilirubin 1+ H (Negative) Urine Urobilinogen Negative (Negative) Ur Leukocyte Esterase Negative (Negative) Urine WBC (Auto) 1-5 (0-5) /hpf Urine RBC (Auto) 5-10 H (0-4) /hpf U Hyaline Cast (Auto) 1-5 (0-5) /lpf U Epithel Cells (Auto) >30 H (0-5) /lpf Urine Bacteria (Auto) Negative (Negative) Ur Renal Epithelial Cell Not Reportable Granular Casts 1-5 H (0) /lpf COVID-19 Eval Order SARS-CoV-2 (PCR) (Negative) Administered Medications Discontinued Medications Albuterol (Albut/Ipratrop 3mg/0.5mg Neb 3 Ml Vial) 3 ml INH NOW STA Stop: 05/11/21 23:38 Last Admin: 05/11/21 23:53 Dose: 3 ml Documented by: [id number] Furosemide (Furosemide 40 Mg/4 Ml Vial) 20 mg IV ONE ONE Stop: 05/12/21 01:16 Last Admin: 05/12/21 02:08 Dose: 20 mg Documented by: [id number] Ceftriaxone Sodium (Rocephin) 1,000 mg in 50 mls @ 100 mls/hr IV NOW STA Stop: 05/12/21 01:24 Last Infusion: 05/12/21 01:41 Dose: 0 mls/hr Documented by: [id number] Admin: 05/12/21 01:11 Dose: 100 mls/hr Documented by: [id number] Methylprednisolone (Methylprednisolone 125 Mg/2 Ml Vial) 125 mg IV NOW STA Stop: 05/11/21 23:46 Last Admin: 05/12/21 00:13 Dose: 125 mg Documented by: [id number] Nitroglycerin (Nitroglycerin 2% Ointment 30gm Tube) 0.5 inch EXT NOW STA Stop: 05/11/21 23:46 Last Admin: 05/12/21 01:10 Dose: 0.5 inch Documented by: [id number] Discharge Plan Visit Data Chief Complaint: Respiratory Distress Stated Complaint: SOB ED Provider: Arash Butts Discharge Problem: Hypoxia, Congestive heart failure, Pneumonia Forms Stand Alone Forms: My [facility] Prescriptions Prescriptions: No Action atorvastatin 40 mg tablet 40 mg PO DAILY RF: 0 metformin 500 mg tablet 500 mg PO BID RF: 0 cetirizine 10 mg tablet 10 mg PO DAILY RF: 0 diltiazem HCl 240 mg capsule,extended release 24hr 240 mg PO QAM RF: 0 metoprolol tartrate 50 mg tablet 50 mg PO BID RF: 0 zafirlukast 20 mg tablet 20 mg PO BID RF: 0 omeprazole 20 mg capsule,delayed release(DR/EC) 20 mg PO DAILY RF: 0 digoxin 125 mcg (0.125 mg) tablet 125 mcg PO DAILY RF: 0 fluoxetine 20 mg capsule 20 mg PO DAILY RF: 0 Xarelto 15 mg tablet 15 mg PO DAILY RF: 0 Referrals Referrals: Tanner Garcia MD [Primary Care Provider] -
[2021-05-12 01:07] LABS: Allen Test POS (Pos)
[2021-05-12] MEDS ORDERED: FUROSEMIDE 40 MG/4 ML VIAL IV ONE (01:15)
[2021-05-12 01:48] LABS: Appearance Urine Cloudy (Clear); Bacteria Urine Automated Negative (Negative); Blood Urine Negative (Negative); Color Urine Dark Yellow; Epithelial Cell Urine Auto >30 /lpf (0-5); Glucose Urine UA Negative (Negative); Ketones Urine Trace (Negative); Leukocyte Esterase Urine Negative (Negative); Nitrite Urine Negative (Negative); Protein Urine 2+ (Negative); Specific Gravity Urine 1.026 (1.000-1.030); Urobilinogen Urine Negative (Negative)
[2021-05-12 02:01] LABS: Bilirubin Urine 1+ (Negative)
--- NOTE | 2021-05-12 03:01 | History & Physical Report ---
Date of Service May 12, 2021 Assessment & Plan (1) Acute and chronic respiratory failure with hypoxia: Plan: 80yo female with O2 dependant COPD, CHF as well as AF presenting with acute on chronic hypoxic respiratory failure requiring placement of BiPAP in the ER. Patient's respiratory status has improved. Ddx to include acute exacerbation of CHF, COPD, or PNA. Patient is anticoagulated on Xarelto. Exam is significant for mild LE edema as well as crackles and focal wheezing on pulmonary exam. Labs with elevated WBC with neutrophil predominance, elevated BNP as well. CXR with bilateral airspace opacities with pleural effusions, ?pulmonary edema? -Admit to medical with telemetry -Maintain BiPAP - currently doing well on minimal settings of 10/5, 35% FiO2 -Lasix 20mg IV given in the ER - monitor diuretic response. Adrian placed in ER -Continue Lasix 20mg IV BID, I/O monitoring and daily weights as well as BID BMP -Check Procalcitonin -Ceftriaxone 2gm IV daily -Doxycycline 100mg po BID -Repeat CBC in AM -DuoNeb q 4 hours -Albuterol PRN (2) Congestive heart failure: Plan: Suspect acute exacerbation of CHF as main cause of patient's acute on chronic hypoxic respiratory failure. As above -Lasix 20mg IV BID -Monitor I/Os, daily weights -BMP BID -Consider 2D echo - last in 2016 with normal LV function with EF of 55-60%, no regional WMA, borderline concentric LVH with mild TR (3) COPD (chronic obstructive pulmonary disease): Plan: May also be contributing to patient's SOB. She has poor airflow as well as end- expiratory wheezing noted on exam. Mild CO2 retention noted on gas -DuoNeb q 4 -Albuterol q 2 hours PRN -Continue supplemental O2 - BiPAP --> NC as tolerated (4) Atrial fibrillation: Plan: Patient bradycardic at present - Continue home medications. Digoxin, Metoprolol and Diltiazem -Continue Rivaroxaban -Check digoxin level with next draw (5) Hypertension: Plan: Patient with elevated BP on arrival, Nitro paste placed -Continue home medications - Metoprolol, Diltiazem -Continue to monitor (6) Anxiety: Plan: Chronic -Continue Fluoxetine 20mg po daily (7) Hyperlipidemia: Plan: Chronic -Continue Atorvastatin 40mg po daily Plan: F/E/N - Diuresis with Lasix IV as above, monitor BMP q 12 hours, AHA/CC diet as tolerated Ppx - Continue Rivaroxaban 15mg po daily Code - Full per discussion with patient Dispo - Observation to medical with telemetry History of Present Illness Chief Complaint: shortness of breath Primary Care Provider: Tanner Garcia MD Coco Sanchez is an 80yo female with history of COPD, CHF, AF on Xarelto anticoagulation, HTN and HLP presenting with SOB. She reports progressive SOB and SCOTT ongoing for the last several days with acute worsening this evening. She typically wears supplemental O2 at home at 3L - had low oxygen saturation this evening at 85% so increased her O2 to 5L. She took her inhalers and neb treatments prior to arrival with no improvement. EMS arrived and found patient saturating 88% on 5L NC. She was placed on 15L NRB with improvement in saturation to 100%. Patient with persistent dyspnea. She denies fever, chills, cough. Denies chest pain, palpitations, edema. She has been having some wheezing. No additional complaints at this time. Upon arrival to the ER she was tachypneic at 28bpm, initially on NRB with adequate oxygenation. She was placed on BiPAP for work of breathing and dyspnea and improved. Presently she is comfortable and states that she is feeling much better. ER Course: Albuterol, Solumedrol 125mg IV, Ceftriaxone, Lasix 20mg IV, Nitro Allergies Allergy/AdvReac Type Severity Reaction Status Date / Time Penicillins Allergy Mild GI SYMPTOMS Verified 05/12/21 00:09 Home Medications Medication Instructions Recorded Confirmed Type atorvastatin 40 mg tablet 40 mg PO DAILY 05/12/21 05/12/21 History cetirizine 10 mg tablet 10 mg PO DAILY 05/12/21 05/12/21 History digoxin 125 mcg (0.125 mg) tablet 125 mcg PO DAILY 05/12/21 05/12/21 History diltiazem HCl 240 mg 240 mg PO QAM 05/12/21 05/12/21 History capsule,extended release 24 hr fluoxetine 20 mg capsule 20 mg PO DAILY 05/12/21 05/12/21 History metformin 500 mg tablet 500 mg PO BID 05/12/21 05/12/21 History metoprolol tartrate 50 mg tablet 50 mg PO BID 05/12/21 05/12/21 History omeprazole 20 mg capsule,delayed 20 mg PO DAILY 05/12/21 05/12/21 History release rivaroxaban 15 mg tablet (Xarelto) 15 mg PO DAILY 05/12/21 05/12/21 History zafirlukast 20 mg tablet 20 mg PO BID 05/12/21 05/12/21 History Past Med/Surg History Medical History (Updated 05/12/21 @ 02:49 by Glenda Walker DO) Anxiety Atrial fibrillation Congestive heart failure COPD (chronic obstructive pulmonary disease) Hyperlipidemia Hypertension Family History Other Family history non-contributory Social History (Updated 05/12/21 @ 02:45 by Glenda Walker DO) Smoking Status: Former smoker Hx Alcohol Use: No Hx Substance Use: No Feels Safe at Home: Yes Review of Systems Review of Systems: All systems reviewed & are unremarkable except as noted in HPI & below Physical Exam Physical Exam: General: patient resting comfortably with BiPAP in place, very hard of hearing requiring me to write questions down on paper, NAD Skin: warm, dry, intact, no rashes or lesions HEENT: NC/AT, PERRL, EOMI, anicteric sclera, conjunctiva without injection, external ear normal to inspection and nontender, nares patent, moist mucus membranes, dentition intact, no oropharyngeal lesions, neck supple, trachea midline, no LAD, no thyromegaly, no JVD Heart: +S1/S2, regular, bracycardic, 2/6 LEONARDO at LSB Lungs: equal air entry bilaterally with overall diminished breath sounds, crackles appreciated in anterior lung dolan as well as mid lung dolan posteriorly, diminished breath sounds in bases, focal end-expiratory wheezing noted in left base Abd: +BS, soft, NT/ND, no masses/organomegaly/ascites Ext: warm, 1+ pulses in UE/LE bilaterally, no clubbing/cyanosis, 1+ pitting edema to knees Neuro: grossly nonfocal, hard of hearing Results & Data Results & Data ([facility]) Vital Signs (Past 12 Hours) Vital Signs Temp Pulse Pulse Pulse Resp BP BP 05/12/21 01:37 58 L 16 170/77 H 05/11/21 23:55 59 L 24 05/11/21 23:53 60 23 05/11/21 23:37 86 26 H 05/11/21 23:21 78 26 H 05/11/21 22:58 37.1 C 78 78 26 H 162/123 H 162/123 H Pulse Ox 05/12/21 01:37 94 05/11/21 23:55 100 05/11/21 23:53 60 L 05/11/21 23:37 99 05/11/21 23:21 100 05/11/21 22:58 100 Laboratory Results Laboratory Results WBC 19.77 K/uL (4.8-10.8) H 05/11/21 23:17 RBC 3.20 M/uL (4.2-5.4) L 05/11/21 23:17 Hgb 9.3 g/dL (12.0-16.0) L 05/11/21 23:17 Hct 31.9 % (37-47) L 05/11/21 23:17 MCV 99.7 fL (80-100) 05/11/21 23:17 MCH 29.1 pg (25-34) 05/11/21 23:17 MCHC 29.2 g/dL (32-36) L 05/11/21 23:17 RDW Std Deviation 58.9 fL (36.4-46.3) H 05/11/21 23:17 RDW Coeff of [place] 16.1 % (11.5-14.5) H 05/11/21 23:17 Plt Count 384 K/uL (130-400) 05/11/21 23:17 MPV 10.6 fL (7.4-10.4) H 05/11/21 23:17 Immature Gran % (Auto) 0.5 % 05/11/21 23:17 Neut % (Auto) 86.2 % 05/11/21 23:17 Lymph % (Auto) 5.5 % 05/11/21 23:17 [place] % (Auto) 6.7 % 05/11/21 23:17 Eos % (Auto) 0.9 % 05/11/21 23:17 Baso % (Auto) 0.2 % 05/11/21 23:17 Neut # (Auto) 17.05 K/uL (1.4-6.5) H 05/11/21 23:17 Lymph # (Auto) 1.09 K/uL (1.2-3.4) L 05/11/21 23:17 [place] # (Auto) 1.33 K/uL (0.11-0.59) H 05/11/21 23:17 Eos # (Auto) 0.17 K/uL (0-0.5) 05/11/21 23:17 Baso # (Auto) 0.03 K/uL (0-0.2) 05/11/21 23:17 Immature Gran # (Auto) 0.10 K/uL (0.00-0.02) H 05/11/21 23:17 ABG pH 7.34 (7.35-7.45) L 05/12/21 00:45 ABG pCO2 59 mmHg (35-46) H 05/12/21 00:45 ABG pO2 73 mmHg (80-95) L 05/12/21 00:45 ABG HCO3 31 mmol/L (19-24) H 05/12/21 00:45 ABG O2 Saturation 94.3 % (90-95) 05/12/21 00:45 ABG Base Excess 4.5 mEq/L (-9-1.8) H 05/12/21 00:45 Angelo Test POS (Pos) 05/12/21 00:45 Barometric Pressure 737.7 mm/Hg 05/12/21 00:45 Oxygen Given FIO2 35 05/12/21 00:45 Sodium 139 mmol/L (136-145) 05/11/21 23:17 Potassium 4.1 mmol/L (3.5-5.1) 05/11/21 23:17 Chloride 102 mmol/L (98-107) 05/11/21 23:17 Carbon Dioxide 34 mmol/L (21-32) H 05/11/21 23:17 Anion Gap 3.0 (3-11) 05/11/21 23:17 BUN 19 mg/dl (7-18) H 05/11/21 23:17 Creatinine 1.09 mg/dl (0.6-1.2) 05/11/21 23:17 Est Cr Clr Drug Dosing Not Reportable 05/11/21 23:17 Est GFR ( Amer) 54.7 ml/min 05/11/21 23:17 Est GFR (Non-Af Amer) 47.2 ml/min 05/11/21 23:17 BUN/Creatinine Ratio 17.1 (10-20) 05/11/21 23:17 Glucose 148 mg/dl (70-99) H 05/11/21 23:17 Calcium 8.8 mg/dl (8.5-10.1) 05/11/21 23:17 Magnesium 1.8 mg/dl (1.8-2.4) 05/11/21 23:17 Total Bilirubin 0.5 mg/dl (0.2-1) 05/11/21 23:17 AST 16 U/L (15-37) 05/11/21 23:17 ALT 25 U/L (12-78) 05/11/21 23:17 Alkaline Phosphatase 92 U/L (45-117) 05/11/21 23:17 Troponin I 0.019 ng/ml (0-0.045) 05/11/21 23:17 NT-Pro-B Natriuret Pep 6894 pg/ml (0-1800) H 05/11/21 23:17 Total Protein 7.8 gm/dl (6.4-8.2) 05/11/21 23:17 Albumin 3.5 gm/dl (3.4-5.0) 05/11/21 23:17 Globulin 4.3 gm/dl (2.5-4.0) H 05/11/21 23:17 Albumin/Globulin Ratio 0.8 (0.9-2) L 05/11/21 23:17 Urine Color Dark Yellow 05/12/21 01:25 Urine Appearance Cloudy (Clear) A 05/12/21 01:25 Urine pH 5.0 (4.5-7.5) 05/12/21 01:25 Ur Specific [place] 1.026 (1.000-1.030) 05/12/21 01:25 Urine Protein 2+ (Negative) H 05/12/21 01:25 Urine Glucose (UA) Negative (Negative) 05/12/21 01:25 Urine Ketones Trace (Negative) H 05/12/21 01:25 Urine Blood Negative (Negative) 05/12/21 01:25 Urine Nitrite Negative (Negative) 05/12/21 01:25 Urine Bilirubin 1+ (Negative) H 05/12/21 01:25 Urine Urobilinogen Negative (Negative) 11/03/21 01:25 Ur Leukocyte Esterase Negative (Negative) 05/12/21 01:25 Urine WBC (Auto) 1-5 /hpf (0-5) 05/12/21 01:25 Urine RBC (Auto) 5-10 /hpf (0-4) H 05/12/21 01:25 U Hyaline Cast (Auto) 1-5 /lpf (0-5) 05/12/21 01:25 U Epithel Cells (Auto) >30 /lpf (0-5) H 05/12/21 01:25 Urine Bacteria (Auto) Negative (Negative) 05/12/21 01:25 Ur Renal Epithelial Cell Not Reportable 05/12/21 01:25 Granular Casts 1-5 /lpf (0) H 05/12/21 01:25 COVID-19 Eval Order Covid19 at [facility] 05/11/21 23:15 SARS-CoV-2 (PCR) NEGATIVE (Negative) 05/11/21 23:15 Diagnostic Findings CXR - by my interpretation - bilateral airspace disease present with blunting of the costophrenic angles Code Status & VTE Plan VTE Prophylaxis Plan VTE Prophylaxis will be ordered: Yes PG Care Time/CCT Total # of Minutes Spent Total Time Spent with Patient: Total time spent is greater than 50% in coordination of care (as documented) at patient's floor/unit and/or counseling patient: Coding Level of Care Code INT OBSERVATION CARE 50M LVL 2 Diagnoses Anxiety F41.9 Hyperlipidemia E78.5 Hypertension I10 Atrial fibrillation I48.91 COPD (chronic obstructive pulmonary disease) J44.9 Congestive heart failure I50.9 Acute and chronic respiratory failure with hypoxia J96.21
[2021-05-12] MEDS ORDERED: ONDANSETRON INJ 2 MG/ML 2 ML VIAL IV PRN (04:50)
[2021-05-12] MEDS ORDERED: DEXTROSE 50% 50 ML SYRINGE IV PRN (04:50)
[2021-05-12] MEDS ORDERED: GLUCAGON FOR INJ 1 MG VIAL SQ PRN (04:50)
[2021-05-12] MEDS ORDERED: ALBUTEROL 0.5% NEB SOLN 2.5 MG/0.5 ML VIAL NEB PRN (04:50)
[2021-05-12] MEDS ORDERED: GLUCOSE 10 TABS/TUBE PO PRN (04:50)
[2021-05-12] MEDS ORDERED: ACETAMINOPHEN 325 MG TAB PO PRN (04:50)
[2021-05-12] MEDS ORDERED: GLUCOSE 40% GEL 15 GM TUBE PO PRN (04:50)
[2021-05-12] MEDS ORDERED: CARBOHYDRATES FOR HYPOGLYCEMIA PO PRN (04:50)
[2021-05-12] MEDS: ALBUT/IPRATROP 3MG/0.5MG NEB 3 ML VIAL NEB SCH ×6 (05:12→22:50)
--- NOTE | 2021-05-12 07:38 | XRay Report ---
XR chest 1V portable HISTORY: 80 years-old Female Dyspnea acute shortness of breath COMPARISON: Chest radiograph 07/23/2016 TECHNIQUE: Portable AP view of the chest FINDINGS: Cardiac silhouette is enlarged. Pulmonary vascular congestion with interstitial opacities. Bibasilar predominant consolidation with small left greater than right layering pleural effusions. Degenerative changes of the shoulders and spine. Calcified plaque of the thoracic aorta. IMPRESSION: 1. Cardiomegaly with pulmonary edema. 2. Left greater than right layering pleural effusions with bibasilar consolidation suggestive of atel ectasis versus pneumonia. ACT 112: Negative or not required by law. The above report was generated using voice recognition software. It may contain grammatical, syntax o r spelling errors. Electronically signed by: James Nickerson M.D. 05/12/2021 7:37 AM
--- NOTE | 2021-05-12 08:11 | Hospitalist Progress Note ---
Date of Service May 12, 2021 Assessment & Plan (1) Acute and chronic respiratory failure with hypoxia: Plan: 80yo female with O2 dependant COPD, CHF as well as AF presenting with acute on chronic hypoxic respiratory failure requiring placement of BiPAP in the ER. Patient's respiratory status has improved. Ddx to include acute exacerbation of CHF, COPD, or PNA. Patient is anticoagulated on Xarelto. -Lasix 20mg IV given in the ER - monitor diuretic response. Adrian placed in ER -Continue Lasix 20mg IV BID, BNP is elevated with concern for heart failure preserved ejection fraction Calcitonin is negative was initially started on-Ceftriaxone 2gm IV daily will de-escalate to -Doxycycline 100mg po BID for treatment of bronchitis as no defined pneumonia seen on chest x-ray -DuoNeb q 4 hours -Albuterol PRN (2) Congestive heart failure: Plan: acute exacerbation HFpEF , main cause of patient's acute on chronic hypoxic respiratory failure. As above -Lasix 20mg IV BID -Monitor I/Os, daily weights - (3) COPD (chronic obstructive pulmonary disease): Plan: May also be contributing to patient's SOB. She has poor airflow as well as end- expiratory wheezing noted on exam. Mild CO2 retention noted on gas feels much better with treatment -DuoNeb q 4 -Albuterol q 2 hours PRN -Continue supplemental O2 - BiPAP --> NC as tolerated (4) Atrial fibrillation: Plan: Rate controlled to slightly slow - Continue home medications. Digoxin, Metoprolol and Diltiazem -Continue Rivaroxaban (5) Hypertension: Plan: Patient with elevated BP on arrival discontinue Nitropaste -Continue home medications - Metoprolol, Diltiazem -Continue to monitor (6) Anxiety: Plan: Chronic -Continue Fluoxetine 20mg po daily (7) Hyperlipidemia: Plan: Chronic -Continue Atorvastatin 40mg po daily Plan: F/E/N - Diuresis with Lasix IV as above, monitor BMP q 12 hours, AHA/CC diet as tolerated Ppx - Continue Rivaroxaban 15mg po daily Code - Full per discussion with patient Dispo - Observation to medical with telemetry Admission and Anticipated Discharge Date Admission Date: May 12, 2021 Subjective pt feels much improved but is only at about 50% of her pre admission status, she is weakened and still has shortness of breath Review of Systems Review of Systems: Moderate respiratory distress and fatigue no headache, no visual changes no speech or swallowing issues no chest pain, pressure or palpitations Seems to be baseline shortness of breath, productive cough no abdominal pain, nausea or vomiting, diarrhea or constipation no dysuria, hematuria or frequency no focal joint pain or swelling no back pain, CVA tenderness or radicular pain no bruising, bleeding or rashes no focal signs of weakness or numbness or altered sensation no complaints of anxiety or depression.. Physical Exam Physical Exam: The patient appeared with chronic respiratory failure but appears to be stable at this time Vital signs as documented. Head exam is normocephalic atraumatic Neck is without JVD, thyromegaly, or carotid bruits. Lungs are poor air movement no focal loss no wheezes Cardiac exam, Rhythm is regular.. Systolic ejection murmur at the right upper sternal border Abdominal exam reveals normal bowel sounds, soft non tender, no masses Extremities are 1+ edema bilateral lower extremities and both pedal pulses are present Neurologic exam is alert and oriented, no focal loss of strength or sensation Skin is without bruises or rashes Psychologically is without concerns for anxiety or depression Results & Data Results & Data ([facility]) Vital Signs (Past 12 Hours) Vital Signs Temp Pulse Pulse Pulse Pulse Resp BP 05/12/21 08:06 80 20 05/12/21 07:45 98.2 F 68 22 05/12/21 07:00 97.2 F L 63 20 05/12/21 05:17 68 24 05/12/21 04:56 97.5 F L 63 22 05/12/21 04:30 61 05/12/21 04:28 62 35 H 05/12/21 03:27 58 L 05/12/21 03:26 58 L 28 H 05/12/21 02:30 57 L 22 177/77 H 05/12/21 02:15 55 L 26 H 165/87 H 05/12/21 02:00 56 L 22 153/50 H 05/12/21 01:45 57 L 27 H 156/72 H 05/12/21 01:37 58 L 16 05/12/21 01:31 60 23 170/77 H 05/12/21 01:15 57 L 24 05/12/21 01:00 59 L 22 162/59 H 05/12/21 00:45 61 19 174/78 H 05/12/21 00:30 62 26 H 133/53 L 05/12/21 00:15 62 23 139/43 L 05/12/21 00:00 61 24 145/47 H 05/11/21 23:55 59 L 24 05/11/21 23:53 60 23 05/11/21 23:45 67 22 135/47 L 05/11/21 23:37 86 26 H 05/11/21 23:30 69 18 05/11/21 23:21 78 26 H 05/11/21 23:15 74 15 05/11/21 23:06 78 15 05/11/21 22:58 98.8 F 78 78 26 H 162/123 H BP Pulse Ox 05/12/21 08:06 98 05/12/21 07:45 177/61 H 95 05/12/21 07:00 160/67 H 95 05/12/21 05:17 94 05/12/21 04:56 184/61 H 95 05/12/21 04:30 05/12/21 04:28 93 05/12/21 03:27 193/62 H 94 05/12/21 03:26 94 05/12/21 02:30 93 05/12/21 02:15 93 05/12/21 02:00 91 05/12/21 01:45 05/12/21 01:37 170/77 H 94 05/12/21 01:31 93 05/12/21 01:15 90 05/12/21 01:00 05/12/21 00:45 05/12/21 00:30 91 05/12/21 00:15 05/12/21 00:00 05/11/21 23:55 100 05/11/21 23:53 60 L 05/11/21 23:45 05/11/21 23:37 99 05/11/21 23:30 100 05/11/21 23:21 100 05/11/21 23:15 100 05/11/21 23:06 05/11/21 22:58 162/123 H 100 PG Care Time/CCT Total # of Minutes Spent Total Time Spent with Patient: Total time spent is greater than 50% in coordination of care (as documented) at patient's floor/unit and/or counseling patient: Coding Level of Care Code 97065 Subseq Hosp Care Lvl 3 Diagnoses Acute and chronic respiratory failure with hypoxia J96.21 Congestive heart failure I50.9 COPD (chronic obstructive pulmonary disease) J44.9 Atrial fibrillation I48.91 Hypertension I10 Anxiety F41.9 Hyperlipidemia E78.5
[2021-05-12] MEDS: INSULIN ASPART 100 UNITS/ML 3 ML PEN SC SCH ×4 (08:53→22:16)
[2021-05-12] MEDS: DOXYCYCLINE HYCLATE 100 MG CAP PO SCH ×2 (08:54→22:18)
[2021-05-12] MEDS: METOPROLOL TARTRATE 50 MG TAB PO SCH ×2 (08:55→22:18)
[2021-05-12] MEDS: dilTIAZem HCL 240 MG CAPCR PO SCH (08:55)
[2021-05-12] MEDS: FLUoxetine HCL 20 MG CAP PO SCH (08:55)
[2021-05-12] MEDS: CETIRIZINE HCL 10 MG TABLET PO SCH (08:55)
[2021-05-12] MEDS: DIGOXIN 0.125 MG TAB PO SCH (08:55)
[2021-05-12] MEDS: RIVAROXABAN 15 MG TAB PO SCH (08:56)
[2021-05-12] MEDS: FAMOTIDINE 40 MG TABLET PO SCH (08:56)
[2021-05-12] MEDS: ATORVASTATIN 40 MG TAB PO SCH (08:56)
[2021-05-12] MEDS ORDERED: FUROSEMIDE INJ 20 MG/2 ML VIAL IV SCH (09:00)
[2021-05-12] MEDS: FUROSEMIDE 40 MG/4 ML VIAL IV SCH ×2 (09:01→22:17)
[2021-05-12 15:17] LABS: Calcium 8.8 mg/dl (8.5-10.1); Creatinine Clr Calc Pharmacy 36.2 ml/min; Est GFR (Non-African American) 37.1 ml/min; Potassium 4.3 mmol/L (3.5-5.1)
--- NOTE | 2021-05-12 15:38 | XCELERA ---
[id number] \\[id number]\[id number]
[2021-05-13] MEDS ORDERED: cefTRIAXone SODIUM 2,000 MG in DEXTROSE 5% 50 ML IV SCH
[2021-05-13] MEDS: ALBUT/IPRATROP 3MG/0.5MG NEB 3 ML VIAL NEB SCH ×2 (03:57→07:25)
[2021-05-13 07:08] LABS: Basophils # (auto) 0.01 K/uL (0-0.2); Basophils % (auto) 0.1 %; Hematocrit (blood only) 26.8 % (37-47); Immature Granulocytes # (auto) 0.04 K/uL (0.00-0.02); Immature Granulocytes % (auto) 0.3 %; Lymphocytes # (auto) 0.75 K/uL (1.2-3.4); Lymphocytes % (auto) 5.8 %; Mean Corpuscular Hemoglobin 28.4 pg (25-34); Mean Corpuscular Hgb Conc 29.9 g/dL (32-36); Mean Platelet Volume 10.4 fL (7.4-10.4); Monocytes % (auto) 10.1 %; Neutrophils # (auto) 10.76 K/uL (1.4-6.5); Neutrophils % (auto) 83.7 %; Platelet Count 319 K/uL (130-400); RDW Coefficient of Variation 16.4 % (11.5-14.5); RDW Standard Deviation 56.8 fL (36.4-46.3); Red Blood Count 2.82 M/uL (4.2-5.4); White Blood Count 12.86 K/uL (4.8-10.8)
[2021-05-13 07:48] LABS: BUN Creatinine Ratio 20.7 (10-20); Calcium 8.6 mg/dl (8.5-10.1); Creatinine Clr Calc Pharmacy 38.8 ml/min; Est GFR (African American) 47.3 ml/min; Est GFR (Non-African American) 40.8 ml/min
[2021-05-13] MEDS: INSULIN ASPART 100 UNITS/ML 3 ML PEN SC SCH ×2 (08:15→12:06)
[2021-05-13] MEDS: ATORVASTATIN 40 MG TAB PO SCH (08:17)
[2021-05-13] MEDS: DOXYCYCLINE HYCLATE 100 MG CAP PO SCH (08:17)
[2021-05-13] MEDS: FAMOTIDINE 40 MG TABLET PO SCH (08:17)
[2021-05-13] MEDS: FUROSEMIDE 40 MG/4 ML VIAL IV SCH (08:17)
[2021-05-13] MEDS: DIGOXIN 0.125 MG TAB PO SCH (08:17)
[2021-05-13] MEDS: RIVAROXABAN 15 MG TAB PO SCH (08:17)
[2021-05-13] MEDS: FLUoxetine HCL 20 MG CAP PO SCH (08:18)
[2021-05-13] MEDS: METOPROLOL TARTRATE 50 MG TAB PO SCH (08:18)
[2021-05-13] MEDS: dilTIAZem HCL 240 MG CAPCR PO SCH (08:18)
[2021-05-13] MEDS: CETIRIZINE HCL 10 MG TABLET PO SCH (08:18)
[2021-05-13] MEDS ORDERED: ALBUT/IPRATROP 3MG/0.5MG NEB 3 ML VIAL NEB PRN (10:34)
--- NOTE | 2021-05-13 18:12 | Discharge Summary ---
Date of Service May 13, 2021 Admission HPI Per Admitting Provider Coco Sanchez is an 80yo female with history of COPD, CHF, AF on Xarelto anticoagulation, HTN and HLP presenting with SOB. She reports progressive SOB and SCOTT ongoing for the last several days with acute worsening this evening. She typically wears supplemental O2 at home at 3L - had low oxygen saturation this evening at 85% so increased her O2 to 5L. She took her inhalers and neb treatments prior to arrival with no improvement. EMS arrived and found patient saturating 88% on 5L NC. She was placed on 15L NRB with improvement in saturation to 100%. Patient with persistent dyspnea. She denies fever, chills, cough. Denies chest pain, palpitations, edema. She has been having some wheezing. No additional complaints at this time. Upon arrival to the ER she was tachypneic at 28bpm, initially on NRB with a dequate oxygenation. She was placed on BiPAP for work of breathing and dyspnea and improved. Presently she is comfortable and states that she is feeling much better. ER Course: Albuterol, Solumedrol 125mg IV, Ceftriaxone, Lasix 20mg IV, Nitro Principal Diagnosis acute on chronic hypoxic respiratory failure pulmonary htn hfpef Discharge Exam The patient appeared well Vital signs as documented. Lungs poor air movement, no wheezes no crackles Cardiac exam, Rhythm is regular.. No murmurs, rubs or gallops. Abdominal exam reveals normal bowel sounds, soft non tender, no masses Extremities are nonedematous and both pedal pulses are normal. Neurologic exam is alert and oriented, no focal loss of strength or sensation Skin is without bruises or rashes Psychologically is without concerns for anxiety or depression. Discharge Data Allergies Allergy/AdvReac Type Severity Reaction Status Date / Time Penicillins Allergy Mild GI SYMPTOMS Verified 05/12/21 00:09 Consultations 05/12/21 00:56 ED Decision to Admit Stat Hospital Course (1) Acute and chronic respiratory failure with hypoxia: 80yo female with O2 dependant COPD, CHF as well as AF presenting with acute on chronic hypoxic respiratory failure requiring placement of BiPAP in the ER. Patient's respiratory status has improved. Ddx to include acute exacerbation of CHF, COPD, or PNA. Patient is anticoagulated on Xarelto. Exam is significant for mild LE edema as well as crackles and focal wheezing on pulmonary exam. Labs with elevated WBC with neutrophil predominance, elevated BNP as well. CXR with bilateral airspace opacities with pleural effusions, likely pulmonary edema rapid improvement goes against COPD exacerbation and looks toward cardiogenic issues, including pulmonary htn, cannot exclude bronchitis will continue abtx at discharge -Doxycycline 100mg po BID (2) Congestive heart failure: Echo with preserved EF, so HFpEF, lasix 40 mg daily (3) COPD (chronic obstructive pulmonary disease): May also be contributing to patient's SOB. marked improvement in respiratory status -will not send home on steroids as rapid improvement suggest was from HFpEF, pulm htn (4) Atrial fibrillation: Patient bradycardic at present - Continue home medications. Digoxin, Metoprolol and Diltiazem -Continue Rivaroxaban (5) Hypertension: Patient with elevated BP on arrival, Nitro paste placed -Continue home medications - Metoprolol, Diltiazem (6) Anxiety: Chronic -Continue Fluoxetine 20mg po daily (7) Hyperlipidemia: Chronic -Continue Atorvastatin 40mg po daily Code - Full per discussion with patient Total Time Total Time Spent Total Time Spent (In Minutes): It required greater than 30 minutes to prepare this patient for discharge Discharge Plan Discharge Items Patient Disposition: Home - Self-Care Reason For Visit: SOB Discharge Diagnosis: bronchitis fluid retention related to pulmonary hypertension Activity: Per Instructions section Activity Comment: slowly increase activity Non-emergency contact: Primary Care Provider Call non-emergency contact if: your symptoms worsen and you have a fever Follow-up/Referrals: Tanner Garcia MD [Primary Care Provider] - 05/18/21 11:00 am Diet: Carb Consistent or DM2 and Low Sodium (2gm) Addtl Attending Provider Instructions: you did have some fluid retention that was making your breathing worse, this is realted to your copd, you had some testing on your heart showing that you have a strong heart but over time you developed some changes that make excess fluid in your system cause a strain on your heart and makes you short of breath. to help this we are starting a daily fluid medicine, and ask that you watch your salt and fluid intake to keep you from accumulating extra fluid complete your antibiotcs to finish treating a possible bronchitis Call 911 and go to the Emergency Room if: * You have tightness or pain in your chest that does not go away with rest or Nitroglycerin * You are very short of breath even with rest Call your doctor if any of the following symptoms or problems start or get worse: * Shortness of breath or difficulty breathing * Wake up at night short of breath * Chest pain * Cough * Swelling of your hands, fee, or legs * More fatigued or tired with your normal activity * Palpitations - sudden fast heart beats WEIGHT * Weigh yourself every morning after using the bathroom. * Use the same scale. * Wear the same amount of clothing. * Write your weight down on your chart. * Call your doctor if you gain more than 2-3 pounds in 1-2 days. MEDICATIONS * Use this discharge instruction sheet for instructions. * Take your medications at the time your doctor ordered. * Do not skip a dose of your medicines. * If you miss a dose of medicine, take as soon as possible, but DO NOT DOUBLE A DOSE. * Read your medicine information when you get home. * Know all of the side effects of your medicine. * Call your doctor's office if you have any side effects. * Be sure all of your doctors know what medicine and herbs you take (including cold, flu, and herbal medicine). * Pain Medicine: If you do not get relief from your pain, please call your doctor for help. Take the following with you to your follow-up doctor appointments: * Weight Chart * Medication List * List of questions Do not drink excessive alcohol, beer or wine. Pending Studies at Discharge: No Stand-Alone Forms: [facility] Medications and DC Order Prescriptions: New doxycycline hyclate 100 mg Capsule 100 mg PO BID Qty: 10 RF: 0 furosemide [Lasix] 40 mg tablet 40 mg PO DAILY Qty: 30 RF: 3 Continued atorvastatin 40 mg tablet 40 mg PO DAILY RF: 0 metformin 500 mg tablet 500 mg PO BID RF: 0 cetirizine 10 mg tablet 10 mg PO DAILY RF: 0 diltiazem HCl 240 mg capsule,extended release 24hr 240 mg PO QAM RF: 0 metoprolol tartrate 50 mg tablet 50 mg PO BID RF: 0 zafirlukast 20 mg tablet 20 mg PO BID RF: 0 omeprazole 20 mg capsule,delayed release(DR/EC) 20 mg PO DAILY RF: 0 digoxin 125 mcg (0.125 mg) tablet 125 mcg PO DAILY RF: 0 fluoxetine 20 mg capsule 20 mg PO DAILY RF: 0 Xarelto 15 mg tablet 15 mg PO DAILY RF: 0 Discharge Orders: Discharge Order (Routine); Ordered 05/13/21 Ordered By: Lambert Suazo Admission Data Admit Date/Time: 05/13/21 08:48 Attending Provider: Lambert Suazo Admit Provider: Glenda Walker Primary Care Provider: Tanner Garcia Other Providers: Glenda Walker Other Interventions: Discharge Summary Assessment (RN) Last Done: 05/13/21 12:20 Coding Level of Care Code D/C DAY MANAGEMENT >30 MINS Diagnoses Acute and chronic respiratory failure with hypoxia J96.21 Congestive heart failure I50.9 COPD (chronic obstructive pulmonary disease) J44.9 Atrial fibrillation I48.91 Hypertension I10 Anxiety F41.9 Hyperlipidemia E78.5
== END 2021-05-13 14:46 | disposition home or self-care (01) ==
LOC: ED 23:04 → 2W 23:04 → SUATTDRO 05-12 02:37 → 2W 05-12 04:02

== ENCOUNTER 2022-02-08 18:03 | Inpatient (IN) ==
[2022-02-08] MEDS ORDERED: STAT IV Infusion **Titration per Protocol STA (18:33)
--- NOTE | 2022-02-08 18:37 | Emergency Department Note ---
Impression & Plan Symptomatic bradycardia, Weakness, CHESTER (acute kidney injury), Acute hypotension, Acute hyperkalemia, Digoxin toxicity, Anemia ED Provider Note NAME: KASHMIR William YOUNG AGE: 81 SEX: F : 1940 ARRIVES VIA: Ambulance INFORMANT: Patient, EMS ED PROVIDER(S): Yosef Rojas DO CHIEF COMPLAINT: Altered mental status HPI: The patient is an 81-year-old female who presented to the emergency department via ambulance for evaluation of altered mental status. The patient has been having respiratory symptoms since last week. She took a home COVID test and was positive. According to her family member she started getting worse throughout the last few days. Today she was having difficulty ambulating and became very confused. Whenever she tried to ambulate she would become dizzy and feels as though she was going to pass out. There is no reported vomiting. I did receive a prehospital notification about the patient given the patient's hypotension and bradycardia. The patient does have a history of atrial fibrillation. She takes digoxin as well as beta-blockers. There is no reported trauma. There is no reported changes to the patient's medications. The patient does take a blood thinner and is reportedly compliant with her outpatient medication regimen. There is been no reported fevers but she did have cough which prompted the COVID test. The patient did receive IV fluids as well as IV atropine prior to arrival. ROS: See above HPI for pertinent positives & negatives. A total of 10 systems reviewed and were otherwise negative. PAST MEDICAL HISTORY: See Below PAST SURGICAL HISTORY: See Below FAMILY HISTORY: See Below SOCIAL HISTORY: See Below HOME MEDICATIONS: See Below ALLERGIES: See Below VITALS: See Below PHYSICAL EXAMINATION: GENERAL: The patient is obtunded. The patient is answering questions slowly but appears to be confused at times. EYES: The conjunctivae are clear. The pupils are dilated and minimally reactive bilaterally. EARS, NOSE, MOUTH AND THROAT: The nose is without any evidence of any deformity. Mucous membranes are dry. NECK: The neck is nontender and supple. RESPIRATORY: Rhonchi were noted throughout. Shallow respirations were appreciated. CARDIOVASCULAR: Bradycardic and regular heart sounds are noted auscultation. No definite murmur was noted. GASTROINTESTINAL: The abdomen is soft. Abdomen is nontender. MUSCULOSKELETAL/EXTREMITIES: There is no evidence of gross deformity full range of motion is noted in the hips and shoulders. SKIN: Skin is cool and diaphoretic. Pedal edema was noted bilaterally. NEUROLOGIC: Patient is awake to verbal commands. She is oriented to person and place but not time or situation. Strength was symmetric. MEDICAL DECISION MAKING: The patient is an 81-year-old female who presented to the emergency department for an evaluation of weakness. The patient arrived at the emergency department via ALS. I did receive a prehospital notification about the patient. She was bradycardic and received atropine prior to arrival without significant improvement of her symptoms. The patient was rushed received directly into room B1. The patient was found have hypotension and severe bradycardia. She was treated with IV fluids IV antibiotics and also placed on IV epinephrine. She was found to have elevation in her creatinine as well as her potassium. She also has an elevation in her digoxin level. Her digoxin level is not severely elevated however calcium was avoided in the resuscitation of her hyperkalemia. She was treated with IV insulin IV dextrose and bronchodilator therapy. She was reevaluated multiple times. Her mental status slowly improved. Her blood pressure and pulse remained low. I discussed the patient's condition with the on-call [facility] hospitalist group. They have agreed to evaluate the patient in the emergency department for further management and disposition. Triage Nursing notes reviewed. Prior medical records reviewed Vital Signs: reviewed and remarkable for bradycardia. Differential diagnosis: Infection, hypoglycemia, electrolyte abnormalities, overdose, toxicologic, cardiac sources, intracerebral event, neurologic, trauma, as well as other pathologies. ER treatment provided: See below Diagnostics interpreted by me: ECG: EKG was obtained in the emergency department. My interpretation is atrial fibrillation with severe bradycardia at 33 bpm. PVCs were noted. A right bundle branch block pattern was noted. This was compared to a tracing from July 29, 2016. Atrial flutter has been replaced with slow atrial fibrillation. A second EKG was obtained. This appears to be consistent with junctional bradycardia [address] segment depressions were noted. No PVCs were noted in this tracing. Cardiac Monitoring: An order was placed for continuous cardiac monitoring. The monitor shows a rate of 52 bpm with bradycardia atrial fibrillation and PVCs. Laboratory studies: As stated above and show below. Imaging studies: See below Consultation(s): I discussed this case with Dr. Cordon who is on-call for the [facility]ist group. ED COURSE: Procedures: Femoral Central Venous Catheter Indication: Altered mental status and bradycardia, hypotension Catheter Type: Triple-lumen Location: Right femoral vein Verbal consent was obtained after the risks and benefits were explained, including but not limited to intra-abdominal injury, vessel injury, bleeding, scarring, infection, pain, and bone/joint/nerve damage. At this time, the risks of the procedure are less than the risks of NOT performing the procedure. A time out was taken and the correct patient and site identified. The patient was placed in the supine position and the skin was prepped in the standard fashion with chlorhexidine and full sterile drapes applied. The proper landmarks were identified with ultrasound, anesthetized with 1% lidocaine without epinephrine, and the needle was inserted through the skin in the standard fashion. The needle was carefully advanced into blood vessel lumen with ultrasound guidance. The guidewire was placed uneventfully. The vessel is dilated and the catheter was placed. It was sutured into position. There was good blood return from all ports. The patient tolerated the procedure well and there were no complications. Critical Care: I have personally spent greater than 65 minutes of critical care time in the direct management of this patient. This includes bedside care, interpretation of diagnostic studies, and testing, discussion with consultants, patient, and family members, and other required patient management activities. This 65 minutes is in excess of all separately billable procedures. Past Med/Surg History Medical History (Updated 02/08/22 @ 21:51 by Balwinder Hernández MD) Anxiety Atrial fibrillation COPD (chronic obstructive pulmonary disease) Diabetes mellitus Hyperlipidemia Hypertension Family History Other Family history non-contributory Social History Smoking Status: Unknown if ever smoked Second Hand Exposure: Yes; Preferred Language: Eritrean Communication Ability: Unable Accounting Reconciliation Clerk Required: No Beliefs That Will Affect Care: None marital status: / Current Living Situation: Alone Current Living Situation Comment: unable to obtain Feels Safe at Home: Yes Assistive Devices: Cane, Oxygen - Continuous and Walker Allergies Allergies Allergy/AdvReac Type Severity Reaction Status Date / Time Penicillins AdvReac Mild GI SYMPTOMS Verified 02/08/22 18:33 Home Meds Home Medications Medication Instructions Recorded Confirmed atorvastatin 40 mg tablet 40 mg PO DAILY 05/12/21 02/08/22 cetirizine 10 mg tablet 10 mg PO DAILY 05/12/21 02/08/22 digoxin 125 mcg (0.125 mg) tablet 125 mcg PO DAILY 05/12/21 02/08/22 diltiazem HCl 240 mg 240 mg PO QAM 05/12/21 02/08/22 capsule,extended release 24 hr fluoxetine 20 mg capsule 20 mg PO DAILY 05/12/21 02/08/22 metformin 500 mg tablet 500 mg PO BID 05/12/21 02/08/22 metoprolol tartrate 50 mg tablet 50 mg PO BID 05/12/21 02/08/22 omeprazole 20 mg capsule,delayed 20 mg PO DAILY 05/12/21 02/08/22 release rivaroxaban 15 mg tablet (Xarelto) 15 mg PO DAILY 05/12/21 02/08/22 zafirlukast 20 mg tablet 20 mg PO BID 05/12/21 02/08/22 fluticasone furoate 200 1 inh inhalation DAILY 02/08/22 02/08/22 mcg-vilanterol 25 mcg/dose inhalation powder glipizide 5 mg tablet 5 mg PO DAILY 02/08/22 02/08/22 losartan 25 mg tablet 25 mg PO DAILY 02/08/22 02/08/22 Previous Rx's Medication Instructions Recorded furosemide 40 mg tablet (Lasix) 40 mg PO DAILY #30 tabs 05/13/21 benzonatate 100 mg capsule 100 mg PO TID PRN cough #30 caps 01/27/22 molnupiravir 200 mg capsule (EUA) 800 mg PO Q12H 5 days #40 caps 01/27/22 Results & Data (ED) Vital Signs Vital Signs - 24 hr 02/08/22 18:00 02/08/22 18:23 02/08/22 17:33 Pulse Rate 30 L 31 L Pulse Rate [Apical] Respiratory Rate 12 23 Respiratory Effort / Characteristics Non-Labored Spontaneous Respiratory Depth Normal Blood Pressure [Left Arm] Blood Pressure Mean [Left Arm] Pulse Oximetry 100 100 Oxygen Delivery Method Non-rebreather Non-rebreather T-Piece Oxygen Flow Rate 15 15 15 Sepsis Recent Fever Within 48 Hours No Sepsis New/Unexplained Change in Mental Status No Sepsis Action Taken by Nursing No Action Required 02/08/22 18:43 02/08/22 18:44 02/08/22 18:53 Pulse Rate Pulse Rate [Apical] 35 L Respiratory Rate 19 20 Respiratory Effort / Characteristics Non-Labored Spontaneous Non-Labored Spontaneous Respiratory Depth Normal Blood Pressure [Left Arm] 86/59 L Blood Pressure Mean [Left Arm] 68 Pulse Oximetry 100 Oxygen Delivery Method Non-rebreather Non-rebreather Non-rebreather Oxygen Flow Rate 15 15 15 Sepsis Recent Fever Within 48 Hours Sepsis New/Unexplained Change in Mental Status Sepsis Action Taken by Nursing 02/08/22 19:06 02/08/22 19:57 02/08/22 20:07 Pulse Rate Pulse Rate [Apical] 46 L 52 L Respiratory Rate 19 24 Respiratory Effort / Characteristics Non-Labored Spontaneous Spontaneous Labored Respiratory Depth Blood Pressure [Left Arm] 110/56 L Blood Pressure Mean [Left Arm] 74 Pulse Oximetry 100 99 100 Oxygen Delivery Method Non-rebreather Non-rebreather Nebulizer Oxygen Flow Rate 15 15 8 Sepsis Recent Fever Within 48 Hours Sepsis New/Unexplained Change in Mental Status Sepsis Action Taken by Nursing 02/08/22 20:00 02/08/22 20:00 02/08/22 21:00 Pulse Rate Pulse Rate [Apical] 58 L Respiratory Rate 18 16 16 Respiratory Effort / Characteristics Non-Labored Non-Labored Respiratory Depth Blood Pressure [Left Arm] 160/58 H Blood Pressure Mean [Left Arm] 92 Pulse Oximetry 97 98 98 Oxygen Delivery Method Aerosol Mask Aerosol Mask Oxygen Flow Rate 9 9 Sepsis Recent Fever Within 48 Hours Sepsis New/Unexplained Change in Mental Status Sepsis Action Taken by Nursing 02/08/22 21:12 02/08/22 22:00 02/08/22 22:00 Pulse Rate Pulse Rate [Apical] 55 L 59 L Respiratory Rate 16 26 H 16 Respiratory Effort / Characteristics Respiratory Depth Blood Pressure [Left Arm] 171/110 H 120/58 L Blood Pressure Mean [Left Arm] 130 78 Pulse Oximetry 100 100 Oxygen Delivery Method Aerosol Mask Nasal Cannula Oxygen Flow Rate 9 6 Sepsis Recent Fever Within 48 Hours Sepsis New/Unexplained Change in Mental Status Sepsis Action Taken by [facility] Medications Current Medication List: was personally reviewed by me Laboratory Data Attestation: I reviewed the patient's lab results. Result diagrams: 02/09/22 05:45 02/09/22 10:49 Lab Results 02/08/22 02/08/22 02/08/22 Range/Units 18:27 18:34 18:34 WBC 13.88 H (4.8-10.8) K/ul RBC 3.32 L (3.93-5.22) M/uL Hgb 9.0 L (12.0-16.0) g/dl POC Hgb 9.9 L (12.0-16.0) g/dl Hct 30.9 L (34.1-44.9) % POC Hct 29 L (37-47) % MCV 93.1 (80.0-100.0) fL MCH 27.1 (25.0-34.0) pg MCHC 29.1 L (32.0-36.0) g/dL RDW Std Deviation 59.4 H (36.4-46.3) fL RDW Coeff of Balbina 17.3 H (11.5-14.5) % Plt Count 351 (130-400) K/uL MPV 11.2 (9.4-12.3) fL Immature Gran % (Auto) 2.2 % Neut % (Auto) 74.8 % Lymph % (Auto) 15.3 % Nicollet % (Auto) 6.2 % Eos % (Auto) 0.7 % Baso % (Auto) 0.8 % Neut # (Auto) 10.38 H (1.4-6.5) K/uL Lymph # (Auto) 2.12 (1.2-3.4) K/uL Nicollet # (Auto) 0.86 H (0.24-0.82) K/uL Eos # (Auto) 0.10 (0-0.50) K/uL Baso # (Auto) 0.11 (0-0.2) K/uL Immature Gran # (Auto) 0.31 H (0.00-0.02) K/uL ESR 23 (0-30) mm/hr PT (9.0-12.0) Seconds INR (0.9-1.1) APTT (21.0-31.0) Seconds PTT Ratio VBG pH (7.36-7.41) VBG pCO2 (38-50) mmHg VBG pO2 mmHg VBG HCO3 mmol/L VBG O2 Saturation % VBG Base Excess mEq/L POC Sodium 139 (135-144) mmol/L Sodium (136-145) mmol/L POC Potassium 5.9 H (3.3-5.0) mmol/L Potassium (3.5-5.1) mmol/L POC Chloride 110 (101-112) mmol/L Chloride (98-107) mmol/L Carbon Dioxide (21-32) mmol/L POC Total CO2 19 L (24-31) mmol/L Anion Gap (3-11) POC Anion Gap 18.0 (16-25) mmol/L POC BUN 37 H (7-18) mg/dl BUN (6-23) mg/dl Creatinine (0.6-1.2) mg/dl POC Creatinine 2.2 H (0.6-1.3) mg/dl Est Cr Clr Drug Dosing ml/min Est GFR ( Amer) ml/min Est GFR (Non-Af Amer) ml/min BUN/Creatinine Ratio (10-20) Glucose (70-99(Fasting)) mg/dl POC Glucose (70-99) mg/dl POC Glucose (other) 224 H (70-99) mg/dl Lactate (0.4-2.0) mmol/L Calcium (8.5-10.1) mg/dl POC Ioniz Calcium Rosa Isela 1.20 (1.12-1.32) mmol/l Magnesium (1.7-2.4) mg/dl Total Bilirubin (0.2-1.0) mg/dl AST (13-39) U/L ALT (7-52) U/L Alkaline Phosphatase (34-104) U/L Troponin I High Sens (0-14) pg/ml C-Reactive Protein (0-0.5) mg/dl Total Protein (6.0-8.3) gm/dl Albumin (3.4-5.0) gm/dl Globulin (2.5-4.0) gm/dl Albumin/Globulin Ratio (0.9-2) Procalcitonin (0-0.5) ng/ml Digoxin (0.8-2.0) ng/ml SARS-CoV-2, RNA, NAAT (NEGATIVE) 02/08/22 02/08/22 02/08/22 Range/Units 18:34 18:34 18:34 WBC (4.8-10.8) K/ul RBC (3.93-5.22) M/uL Hgb (12.0-16.0) g/dl POC Hgb (12.0-16.0) g/dl Hct (34.1-44.9) % POC Hct (37-47) % MCV (80.0-100.0) fL MCH (25.0-34.0) pg MCHC (32.0-36.0) g/dL RDW Std Deviation (36.4-46.3) fL RDW Coeff of Balbina (11.5-14.5) % Plt Count (130-400) K/uL MPV (9.4-12.3) fL Immature Gran % (Auto) % Neut % (Auto) % Lymph % (Auto) % Nicollet % (Auto) % Eos % (Auto) % Baso % (Auto) % Neut # (Auto) (1.4-6.5) K/uL Lymph # (Auto) (1.2-3.4) K/uL Nicol[place] # (Auto) (0.24-0.82) K/uL Eos # (Auto) (0-0.50) K/uL Baso # (Auto) (0-0.2) K/uL Immature Gran # (Auto) (0.00-0.02) K/uL ESR (0-30) mm/hr PT 15.0 H (9.0-12.0) Seconds INR 1.4 H (0.9-1.1) APTT 32.2 H (21.0-31.0) Seconds PTT Ratio 1.2 VBG pH (7.36-7.41) VBG pCO2 (38-50) mmHg VBG pO2 mmHg VBG HCO3 mmol/L VBG O2 Saturation % VBG Base Excess mEq/L POC Sodium (135-144) mmol/L Sodium 138 (136-145) mmol/L POC Potassium (3.3-5.0) mmol/L Potassium 6.0 H (3.5-5.1) mmol/L POC Chloride (101-112) mmol/L Chloride 108 H (98-107) mmol/L Carbon Dioxide 21 (21-32) mmol/L POC Total CO2 (24-31) mmol/L Anion Gap 9 (3-11) POC Anion Gap (16-25) mmol/L POC BUN (7-18) mg/dl BUN 39 H (6-23) mg/dl Creatinine 2.15 H (0.6-1.2) mg/dl POC Creatinine (0.6-1.3) mg/dl Est Cr Clr Drug Dosing 21.7 ml/min Est GFR ( Amer) 23.9 ml/min Est GFR (Non-Af Amer) 20.6 ml/min BUN/Creatinine Ratio 18.1 (10-20) Glucose 186 H (70-99(Fasting)) mg/dl POC Glucose (70-99) mg/dl POC Glucose (other) (70-99) mg/dl Lactate 4.0 H* (0.4-2.0) mmol/L Calcium 8.5 (8.5-10.1) mg/dl POC Ioniz Calcium Rosa Isela (1.12-1.32) mmol/l Magnesium 1.7 (1.7-2.4) mg/dl Total Bilirubin 0.4 (0.2-1.0) mg/dl AST 18 (13-39) U/L ALT 23 (7-52) U/L Alkaline Phosphatase 68 (34-104) U/L Troponin I High Sens 28.9 H (0-14) pg/ml C-Reactive Protein < 0.50 (0-0.5) mg/dl Total Protein 6.2 (6.0-8.3) gm/dl Albumin 3.5 (3.4-5.0) gm/dl Globulin 2.7 (2.5-4.0) gm/dl Albumin/Globulin Ratio 1.3 (0.9-2) Procalcitonin (0-0.5) ng/ml Digoxin (0.8-2.0) ng/ml SARS-CoV-2, RNA, NAAT (NEGATIVE) 02/08/22 02/08/22 02/08/22 Range/Units 18:34 18:34 18:34 WBC (4.8-10.8) K/ul RBC (3.93-5.22) M/uL Hgb (12.0-16.0) g/dl POC Hgb (12.0-16.0) g/dl Hct (34.1-44.9) % POC Hct (37-47) % MCV (80.0-100.0) fL MCH (25.0-34.0) pg MCHC (32.0-36.0) g/dL RDW Std Deviation (36.4-46.3) fL RDW Coeff of Balbina (11.5-14.5) % Plt Count (130-400) K/uL MPV (9.4-12.3) fL Immature Gran % (Auto) % Neut % (Auto) % Lymph % (Auto) % Nicol[place] % (Auto) % Eos % (Auto) % Baso % (Auto) % Neut # (Auto) (1.4-6.5) K/uL Lymph # (Auto) (1.2-3.4) K/uL [place] # (Auto) (0.24-0.82) K/uL Eos # (Auto) (0-0.50) K/uL Baso # (Auto) (0-0.2) K/uL Immature Gran # (Auto) (0.00-0.02) K/uL ESR (0-30) mm/hr PT (9.0-12.0) Seconds INR (0.9-1.1) APTT (21.0-31.0) Seconds PTT Ratio VBG pH 7.21 L (7.36-7.41) VBG pCO2 50 (38-50) mmHg VBG pO2 27 mmHg VBG HCO3 20 mmol/L VBG O2 Saturation < 60.0 % VBG Base Excess -8.1 mEq/L POC Sodium (135-144) mmol/L Sodium (136-145) mmol/L POC Potassium (3.3-5.0) mmol/L Potassium (3.5-5.1) mmol/L POC Chloride (101-112) mmol/L Chloride (98-107) mmol/L Carbon Dioxide (21-32) mmol/L POC Total CO2 (24-31) mmol/L Anion Gap (3-11) POC Anion Gap (16-25) mmol/L POC BUN (7-18) mg/dl BUN (6-23) mg/dl Creatinine (0.6-1.2) mg/dl POC Creatinine (0.6-1.3) mg/dl Est Cr Clr Drug Dosing ml/min Est GFR ( Amer) ml/min Est GFR (Non-Af Amer) ml/min BUN/Creatinine Ratio (10-20) Glucose (70-99(Fasting)) mg/dl POC Glucose (70-99) mg/dl POC Glucose (other) (70-99) mg/dl Lactate (0.4-2.0) mmol/L Calcium (8.5-10.1) mg/dl POC Ioniz Calcium Rosa Isela (1.12-1.32) mmol/l Magnesium (1.7-2.4) mg/dl Total Bilirubin (0.2-1.0) mg/dl AST (13-39) U/L ALT (7-52) U/L Alkaline Phosphatase (34-104) U/L Troponin I High Sens (0-14) pg/ml C-Reactive Protein (0-0.5) mg/dl Total Protein (6.0-8.3) gm/dl Albumin (3.4-5.0) gm/dl Globulin (2.5-4.0) gm/dl Albumin/Globulin Ratio (0.9-2) Procalcitonin 0.05 (0-0.5) ng/ml Digoxin 2.2 H (0.8-2.0) ng/ml SARS-CoV-2, RNA, NAAT (NEGATIVE) 02/08/22 02/08/22 02/08/22 Range/Units 18:48 20:56 21:00 WBC (4.8-10.8) K/ul RBC (3.93-5.22) M/uL Hgb (12.0-16.0) g/dl POC Hgb (12.0-16.0) g/dl Hct (34.1-44.9) % POC Hct (37-47) % MCV (80.0-100.0) fL MCH (25.0-34.0) pg MCHC (32.0-36.0) g/dL RDW Std Deviation (36.4-46.3) fL RDW Coeff of Balbina (11.5-14.5) % Plt Count (130-400) K/uL MPV (9.4-12.3) fL Immature Gran % (Auto) % Neut % (Auto) % Lymph % (Auto) % Nicollet % (Auto) % Eos % (Auto) % Baso % (Auto) % Neut # (Auto) (1.4-6.5) K/uL Lymph # (Auto) (1.2-3.4) K/uL Nicollet # (Auto) (0.24-0.82) K/uL Eos # (Auto) (0-0.50) K/uL Baso # (Auto) (0-0.2) K/uL Immature Gran # (Auto) (0.00-0.02) K/uL ESR (0-30) mm/hr PT (9.0-12.0) Seconds INR (0.9-1.1) APTT (21.0-31.0) Seconds PTT Ratio VBG pH (7.36-7.41) VBG pCO2 (38-50) mmHg VBG pO2 mmHg VBG HCO3 mmol/L VBG O2 Saturation % VBG Base Excess mEq/L POC Sodium (135-144) mmol/L Sodium (136-145) mmol/L POC Potassium (3.3-5.0) mmol/L Potassium (3.5-5.1) mmol/L POC Chloride (101-112) mmol/L Chloride (98-107) mmol/L Carbon Dioxide (21-32) mmol/L POC Total CO2 (24-31) mmol/L Anion Gap (3-11) POC Anion Gap (16-25) mmol/L POC BUN (7-18) mg/dl BUN (6-23) mg/dl Creatinine (0.6-1.2) mg/dl POC Creatinine (0.6-1.3) mg/dl Est Cr Clr Drug Dosing ml/min Est GFR ( Amer) ml/min Est GFR (Non-Af Amer) ml/min BUN/Creatinine Ratio (10-20) Glucose (70-99(Fasting)) mg/dl POC Glucose 122 H (70-99) mg/dl POC Glucose (other) (70-99) mg/dl Lactate 3.2 H* (0.4-2.0) mmol/L Calcium (8.5-10.1) mg/dl POC Ioniz Calcium Rosa Isela (1.12-1.32) mmol/l Magnesium (1.7-2.4) mg/dl Total Bilirubin (0.2-1.0) mg/dl AST (13-39) U/L ALT (7-52) U/L Alkaline Phosphatase (34-104) U/L Troponin I High Sens (0-14) pg/ml C-Reactive Protein (0-0.5) mg/dl Total Protein (6.0-8.3) gm/dl Albumin (3.4-5.0) gm/dl Globulin (2.5-4.0) gm/dl Albumin/Globulin Ratio (0.9-2) Procalcitonin (0-0.5) ng/ml Digoxin (0.8-2.0) ng/ml SARS-CoV-2, RNA, NAAT NEGATIVE (NEGATIVE) Administered Medications Atorvastatin Calcium (Atorvastatin 40 Mg Tab) 40 mg PO DAILY CARMEN Stop: 03/11/22 08:59 Last Admin: 02/09/22 10:59 Dose: 40 mg Documented By: TB Cetirizine HCl (Cetirizine Hcl 10 Mg Tablet) 10 mg PO DAILY [facility] Stop: 03/11/22 08:59 Last Admin: 02/09/22 10:59 Dose: 10 mg Documented By: TB Famotidine (Famotidine 20 Mg Tab) 20 mg PO QAM [facility] Stop: 03/11/22 08:59 Last Admin: 02/09/22 10:59 Dose: 20 mg Documented By: TB Fluoxetine HCl (Fluoxetine Hcl 20 Mg Cap) 20 mg PO DAILY [facility] Stop: 03/11/22 08:59 Last Admin: 02/09/22 10:59 Dose: 20 mg Documented By: TB Fluticasone/Vilanterol (Fluticasone/Vilanterol 200/25mcg 14 Puffs/Inhaler) 1 puffs INH DAILY [facility] Stop: 03/11/22 08:59 Last Admin: 02/09/22 10:59 Dose: 1 puffs Documented By: TB Parenteral Electrolytes (Normosol-R) 1,000 mls @ 80 mls/hr IV .[id number] [facility] Stop: 03/11/22 01:29 Last Admin: 02/09/22 15:24 Dose: 80 mls/hr Documented By: Infusion: 02/09/22 14:37 Dose: 80 mls/hr Documented By: Admin: 02/09/22 02:07 Dose: 80 mls/hr Documented By: JESSIKA Dopamine HCl/Dextrose (Dopamine / D5w) 400 mg in 250 mls @ 25.673 mls/hr IV .[id number] CARMEN; Protocol Stop: 03/11/22 01:29 Last Titration: 02/09/22 14:33 Dose: 7 mcg/kg/min, 25.7 mls/hr Documented By: Admin: 02/09/22 12:50 Dose: 9 mcg/kg/min, 33 mls/hr Documented By: PAPO Co-signed By: JULIO CESAR Titration: 02/09/22 11:36 Dose: 9 mcg/kg/min, 33 mls/hr Documented By: PAPO Co-signed By: JULIO CESAR Titration: 02/09/22 07:15 Dose: 9 mcg/kg/min, 33 mls/hr Documented By: Titration: 02/09/22 07:07 Dose: 7 mcg/kg/min, 25.7 mls/hr Documented By: PAPO Co-signed By: JESSIKA Titration: 02/09/22 04:30 Dose: 7 mcg/kg/min, 25.7 mls/hr Documented By: Titration: 02/09/22 03:40 Dose: 5 mcg/kg/min, 18.3 mls/hr Documented By: Titration: 02/09/22 02:30 Dose: 4 mcg/kg/min, 14.7 mls/hr Documented By: Admin: 02/09/22 02:05 Dose: 2.5 mcg/kg/min, 9.2 mls/hr Documented By: JESSIKA Co-signed By: BILL Insulin Aspart (Insulin Aspart Per Unit) 0 units SC Q6 [facility]MEN Stop: 03/11/22 05:59 Last Admin: 02/09/22 12:49 Dose: Not Given Documented By: PAPO Co-signed By: JULIO CESAR Admin: 02/09/22 05:54 Dose: Not Given Documented By: JESSIKA Ondansetron HCl (Ondansetron Inj 2 Mg/Ml 2 Ml Vial) 4 mg IV Q6H PRN PRN Reason: Nausea And Vomiting Stop: 03/11/22 08:04 Last Admin: 02/09/22 08:20 Dose: 4 mg Documented By: PAPO Discontinued Medications Albuterol (Albut/Ipratrop 3mg/0.5mg Neb 3 Ml Vial) 12 ml NEB ONE ONE; Protocol Stop: 02/08/22 19:21 Last Admin: 02/08/22 20:07 Dose: 12 ml Documented By: CATALINO Dextrose (Dextrose 50% 50 Ml Syringe) 50 ml IV NOW STA Stop: 02/08/22 19:21 Last Admin: 02/08/22 19:46 Dose: 50 ml Documented By: LYNDA Dextrose (Dextrose 50% 50 Ml Syringe) 50 ml IV NOW ONE Stop: 02/09/22 07:00 Last Admin: 02/09/22 07:15 Dose: 50 ml Documented By: PAPO Epinephrine HCl () 4 mg in 254 mls @ 7.452 mls/hr IV .Q24H CARMEN; Protocol Stop: 03/10/22 18:44 Last Titration: 02/09/22 13:02 Dose: 0 mcg/kg/min, 0 mls/hr Documented By: Titration: 02/09/22 03:30 Dose: 0 mcg/kg/min, 0 mls/hr Documented By: Titration: 02/09/22 03:00 Dose: 0.02 mcg/kg/min, 7.5 mls/hr Documented By: MERuddy Titration: 02/09/22 02:40 Dose: 0.05 mcg/kg/min, 18.6 mls/hr Documented By: Titration: 02/09/22 00:35 Dose: 0.07 mcg/kg/min, 26.1 mls/hr Documented By: Titration: 02/09/22 00:09 Dose: 0.06 mcg/kg/min, 22.4 mls/hr Documented By: Titration: 02/08/22 23:54 Dose: 0.05 mcg/kg/min, 18.6 mls/hr Documented By: Titration: 02/08/22 23:48 Dose: 0.04 mcg/kg/min, 14.9 mls/hr Documented By: Titration: 02/08/22 23:43 Dose: 0.03 mcg/kg/min, 11.2 mls/hr Documented By: Titration: 02/08/22 23:38 Dose: 0.02 mcg/kg/min, 7.5 mls/hr Documented By: Titration: 02/08/22 19:48 Dose: 0.02 mcg/kg/min, 7.8 mls/hr Documented By: Titration: 02/08/22 19:42 Dose: 0.02 mcg/kg/min, 7.7 mls/hr Documented By: Titration: 02/08/22 18:52 Dose: 0.02 mcg/kg/min, 7.6 mls/hr Documented By: Admin: 02/08/22 18:38 Dose: 0.02 mcg/kg/min, 7.5 mls/hr Documented By: MARY Co-signed By: BALDEMAR Cefepime HCl (Maxipime) 2,000 mg in 20 mls @ 5 mls/min IV NOW STA; Protocol Stop: 02/08/22 18:46 Last Admin: 02/08/22 18:55 Dose: 5 mls/min Documented By: MARY Sodium Chloride (Nss 1000ml) 1,000 mls @ 999 mls/hr IV .Q1H1M ONE Stop: 02/08/22 19:44 Last Infusion: 02/08/22 20:56 Dose: 0 mls/hr Documented By: Admin: 02/08/22 18:54 Dose: 999 mls/hr Documented By: MARY Sodium Chloride (Nss 1000ml) 1,000 mls @ 999 mls/hr IV .Q1H1M ONE Stop: 02/08/22 20:20 Last Infusion: 02/08/22 20:56 Dose: 0 mls/hr Documented By: Admin: 02/08/22 19:53 Dose: 999 mls/hr Documented By: LYNDA Glucagon 5 mg/ Syringe 5 mls @ 1 mls/min IV NOW STA Stop: 02/08/22 21:43 Last Admin: 02/08/22 21:54 Dose: 1 mls/min Documented By: LYNDA Magnesium Sulfate/Dextrose (Magnesium Sulfate / D5w) 1 gm in 100 mls @ 50 mls/hr IV Q2H CARMEN Stop: 02/09/22 12:29 Last Infusion: 02/09/22 13:02 Dose: 0 mls/hr Documented By: Admin: 02/09/22 10:58 Dose: 50 mls/hr Documented By: Infusion: 02/09/22 10:36 Dose: 50 mls/hr Documented By: Admin: 02/09/22 08:36 Dose: 50 mls/hr Documented By: Infusion: 02/09/22 08:36 Dose: 50 mls/hr Documented By: Admin: 02/09/22 06:47 Dose: 50 mls/hr Documented By: Infusion: 02/09/22 06:46 Dose: 50 mls/hr Documented By: Admin: 02/09/22 04:46 Dose: 50 mls/hr Documented By: JESSIKA Insulin Human Regular 10 units (/ Syringe) 10 mls @ 5 mls/min IV NOW ONE Stop: 02/09/22 07:01 Last Admin: 02/09/22 07:12 Dose: 5 mls/min Documented By: PAPO Co-signed By: ES Digoxin Immune ARMANI 80 mg/ (Sodium Chloride) 108 mls @ 200 mls/hr IV ONE ONE Stop: 02/09/22 10:47 Last Infusion: 02/09/22 11:59 Dose: 0 mls/hr Documented By: Admin: 02/09/22 10:58 Dose: 200 mls/hr Documented By: TB Insulin Human Regular (Novolin-R Insulin Per Unit Charge) 10 units IV NOW STA Stop: 02/08/22 19:21 Last Admin: 02/08/22 19:46 Dose: 10 units Documented By: LYNDA Co-signed By: [id number] Ondansetron HCl (Ondansetron Inj 2 Mg/Ml 2 Ml Vial) Confirm Administered Dose 4 mg .ROUTE .STK-MED ONE Stop: 02/09/22 08:03 Last Admin: 02/09/22 08:36 Dose: Not Given Documented By: TB Pneumococcal Polyvalent Vaccine (Pneumococcal Polysaccharides 25 Mcg/0.5 Ml Vial/Syr) 25 mcg IM .ONCE ONE Stop: 02/09/22 12:01 Last Admin: 02/09/22 12:50 Dose: Not Given Documented By: TB Sodium Polystyrene Sulfonate (Sodium Polystyrene Sulfonate 15g/60ml Susp) 30 gm PO NOW STA Stop: 02/09/22 06:43 Last Admin: 02/09/22 07:12 Dose: 30 gm Documented By: TB Imaging Data Radiologist's Impression: Chest X-Ray 02/08/22 18:06 SINGLE VIEW CHEST CLINICAL HISTORY: Sepsis. FINDINGS: An AP, portable, supine chest radiograph is compared to study dated 05/12/2021. The examination is degraded by portable technique and apical lordotic positioning. The heart is enlarged. There is pulmonary vascular congestion. Atelectasis is seen at the lung bases. No large pleural effusion or pneumothorax is identified. A calcified granuloma is suggested in the right lung base. The skeletal structures are osteopenic. The bony thorax is grossly intact. IMPRESSION: Cardiomegaly with pulmonary vascular congestion. ACT 112: Negative or not required by law. Electronically signed by: Ab Farmer M.D. 02/08/2022 6:[address] 02/08/22 18:06 CT SCAN OF THE BRAIN WITHOUT IV CONTRAST CLINICAL HISTORY: Change in mental status. COMPARISON STUDY: CT of the brain dated 08/07/2006. TECHNIQUE: Unenhanced axial CT scan of the brain is performed from the vertex to the skull base. A dose lowering technique was utilized adhering to the principles of ALARA. FINDINGS: Brain parenchyma: There is age-related involutional change noting mild to moderate subcortical and periventricular microangiopathic disease. There is no hemorrhage, mass effect, or evidence of acute territorial ischemia by CT criter ia. A chronic lacunar infarct is noted in the right basal ganglia. Domínguez-white matter differentiation is preserved. No extra-axial fluid collection is seen. Ventricles, sulci, cisterns: Prominent secondary to involutional change. Intracranial vasculature: There is atherosclerotic calcification of the cavernous carotid and vertebral arteries. Calvarium: Unremarkable. Sinuses and mastoids: There is moderate mucosal thickening in the left maxillary antrum and mild mucosal thickening in the right maxillary antrum. Air-fluid levels are seen bilaterally. Mild to moderate mucosal thickening is also seen within the sphenoid and ethmoid sinuses. Mild mucosal thickening is noted in the frontal sinuses. The mastoid air cells are well pneumatized. Orbits: The bony orbits are grossly intact. There are bilateral ocular lens implants. IMPRESSION: 1. There is no hemorrhage, mass effect, or evidence of acute territorial ischemia by CT criteria. 2. Paranasal sinus disease as above. ACT 112: Negative or not required by law. Electronically signed by: Ab Farmer M.D. 02/08/2022 8:36 PM Discharge Plan Visit Data Chief Complaint: Respiratory Problems Stated Complaint: covid pos ED Provider: Yosef Rojas Discharge Problem: Symptomatic bradycardia, Weakness, CHESTER (acute kidney injury), Acute hypotension, Acute hyperkalemia, Digoxin toxicity, Anemia Patient Disposition: Admitted As Inpatient Discharge Instructions Interventions: ED Discharge Assessment Last Done: 02/09/22 00:31 : Digoxin toxicity Qualifiers: Encounter type: initial encounter Injury intent: accidental or unintentional Qualified Code(s): T46.0X1A - Poisoning by cardiac-stimulant glycosides and drugs of similar action, accidental (unintentional), initial encounter Anemia Qualifiers: Anemia type: unspecified type Qualified Code(s): D64.9 - Anemia, unspecified
[2022-02-08] MEDS ORDERED: CEFEPIME 2,000 MG/20 ML VIAL IV STA (18:43)
[2022-02-08] MEDS ORDERED: SODIUM CHLORIDE 0.9% 1000ML 1,000 ML IV ONE ×2 (18:44→19:20)
[2022-02-08] MEDS ORDERED: EPINEPHrine/NSS 4 MG/254 ML BAG IV SCH (18:45)
[2022-02-08 18:49] LABS: Base Excess VBG -8.1 mEq/L; HCO3 VBG 20 mmol/L; Oxygen Saturation VBG < 60.0 %; PCO2 VBG 50 mmHg (38-50); PO2 VBG 27 mmHg; pH VBG 7.21 (7.36-7.41)
--- NOTE | 2022-02-08 18:50 | XRay Report ---
SINGLE VIEW CHEST CLINICAL HISTORY: Sepsis. FINDINGS: An AP, portable, supine chest radiograph is compared to study dated 05/12/2021. The examinat ion is degraded by portable technique and apical lordotic positioning. The heart is enlarged. There is pulmonary vascular congestion. Atelectasis is seen at the lung bases. No large pleural effusion or pneumothorax is identified. A calcified granuloma is suggested in the right lung base. The skeletal structures are osteopenic. The bony thorax is grossly intact. IMPRESSION: Cardiomegaly with pulmonary vascular congestion. ACT 112: Negative or not required by law. Electronically signed by: Ab Farmer M.D. 02/08/2022 6:48 PM
[2022-02-08 19:14] LABS: Alanine Aminotransferase 23 U/L (7-52); Albumin Globulin Ratio 1.3 (0.9-2); Albumin Level 3.5 gm/dl (3.4-5.0); Alkaline Phosphatase 68 U/L (34-104); Anion Gap 9 (3-11); Aspartate Aminotransferase 18 U/L (13-39); BUN Creatinine Ratio 18.1 (10-20); Bilirubin,Total 0.4 mg/dl (0.2-1.0); Blood Urea Nitrogen 39 mg/dl (6-23); C Reactive Protein < 0.50 mg/dl (0-0.5); Calcium 8.5 mg/dl (8.5-10.1); Carbon Dioxide 21 mmol/L (21-32); Chloride 108 mmol/L (98-107); Creatinine Clr Calc Pharmacy 21.7 ml/min; Est GFR (African American) 23.9 ml/min; Est GFR (Non-African American) 20.6 ml/min; Globulin 2.7 gm/dl (2.5-4.0); Glucose 186 mg/dl (70-99(Fasting)); Magnesium 1.7 mg/dl (1.7-2.4); Sodium 138 mmol/L (136-145); Total Protein 6.2 gm/dl (6.0-8.3)
[2022-02-08 19:15] LABS: Troponin I High Sensitivity 28.9 pg/ml (0-14)
[2022-02-08 19:17] LABS: INR 1.4 (0.9-1.1); Partial Thromboplastin Ratio 1.2; Partial Thromboplastin Time 32.2 Seconds (21.0-31.0)
[2022-02-08] MEDS ORDERED: NovoLIN-R INSULIN PER UNIT CHARGE IV STA (19:20)
[2022-02-08] MEDS ORDERED: DEXTROSE 50% 50 ML SYRINGE IV STA (19:20)
[2022-02-08] MEDS ORDERED: ALBUT/IPRATROP 3MG/0.5MG NEB 3 ML VIAL NEB ONE (19:20)
[2022-02-08 19:55] LABS: Basophils # (auto) 0.11 K/uL (0-0.2); Basophils % (auto) 0.8 %; Eosinophils % (auto) 0.7 %; Hematocrit (blood only) 30.9 % (34.1-44.9); Immature Granulocytes # (auto) 0.31 K/uL (0.00-0.02); Immature Granulocytes % (auto) 2.2 %; Lymphocytes # (auto) 2.12 K/uL (1.2-3.4); Lymphocytes % (auto) 15.3 %; Mean Corpuscular Hemoglobin 27.1 pg (25.0-34.0); Mean Corpuscular Hgb Conc 29.1 g/dL (32.0-36.0); Mean Corpuscular Volume 93.1 fL (80.0-100.0); Mean Platelet Volume 11.2 fL (9.4-12.3); Monocytes # (auto) 0.86 K/uL (0.24-0.82); Monocytes % (auto) 6.2 %; Neutrophils # (auto) 10.38 K/uL (1.4-6.5); Neutrophils % (auto) 74.8 %; Platelet Count 351 K/uL (130-400); RDW Coefficient of Variation 17.3 % (11.5-14.5); RDW Standard Deviation 59.4 fL (36.4-46.3); Red Blood Count 3.32 M/uL (3.93-5.22); White Blood Count 13.88 K/ul (4.8-10.8)
--- NOTE | 2022-02-08 20:09 | History & Physical Report ---
Date of Service February 08, 2022 Assessment & Plan (1) Symptomatic bradycardia: Plan: 81 year old female w/ PMHx of HTN, HLD, DM, COPD, afib on Xarelto, and recent covid (s/p molupiravir) diagnosed ~1 wk ago presents w/ sepsis, worsened hypoxia, CHESTER, and severe bradycardia. - considered supratherapeutic digoxin (less likely given level was 2.2) vs betablocker or CCB overdose. home regimen consists of digoxin, dilt, and metoprolol - s/p atropine in the field and epi x2. placed on epi drip in the ED. continue, currently maintaining HR in the 50s - 5mg IV glucagon ordered (2) Sepsis: Plan: - w/ elevated lactate 4.0, wbc 13.8 - s/p dose of IV cefepime. continue cefepime for empiric abx. nasal mrsa ordered blood cultures pending. net pos 2-3L. - per CT abd, acute pancreatitis and cannot r/o gallbladder pathology. lipase ordered - Hold additional fluids for now. pulm vasc congestion noted on cxr. (3) Acute and chronic respiratory failure with hypoxia: Plan: - home 4L O2 - exacerbation 2/2 hypervolemia vs pneumonia vs covid vs copd exacerbation - cxr w/ congestion (4) CHESTER (acute kidney injury): Plan: - may be 2/2 covid, molupiravir, sepsis - follow bmp. avoid nephrotoxic agents. renally dose meds. (5) COPD (chronic obstructive pulmonary disease): Plan: - see above (6) Digoxin toxicity: Plan: - digoxin level 2.2. would have less suspicion for current presentation of severe bradycardia given this value (7) Anemia: Plan: - Hb 9.0, appears stable from last year. (8) Acute hyperkalemia: Plan: - repeat level pending. s/p IV dextrose, IV insulin 10u, and albuterol (9) Acute hypotension: Plan: - resolved. follow blood cultures. hold home bp meds (10) Weakness: Plan: 2/2 bradycardia vs covid vs other infection vs sepsis (11) Atrial fibrillation: Plan: - afib w/ slow response - Hold home Xarelto and home metoprolol, dilt, and digoxin. (12) Diabetes mellitus: Plan: - last a1c 7.0. hold home regimen. pharmacy glycemic consult. (13) COVID: Plan: - covid isolation precautions Plan Diet, fluids: NPO. No IV fluids. ppx: Hold home Xarelto code: full (per EMS triage sheet; I do not know where EMS obtained confirmation from). Unable to verify with patient. I called patient's POA, sister in law who states that patient had written documentation which she does not have on her at the moment. dispo: ICU History of Present Illness Chief Complaint: AMS, hypoxia Primary Care Provider: Irina Vivar MD 81 year old female w/ PMHx of HTN, HLD, DM, COPD, afib on Xarelto, and recent covid (s/p molnupiravir) ~ 1 wk ago who presents w/ worsened AMS and worsened respiratory status x couple days. She takes digoxin and metoprolol for her afib. Per niece, patient lives alone and family has been looking into arranging home health. Per niece, patient has had multiple refills of her meds and would refill before her old prescriptions were used up so she is unsure if there is any element of med nonadherence vs accidental inappropriate dosing. No EMR records, previous PCP: Dr. Mela Alvarez. 4L home O2. Hx limited by patient's extreme hard of hearing despite hearing aids vs altered mental status. Collateral hx from patient's niece by phone. ED course: 1L NSS. epinephrine drip. cefepime. 10u IV insulin. dextrose IV. albuterol neb. CT abd/pelv w/ acute pancreatitis. ecg sinus marizol vs afib slow response rate of 30. wbc 13.88. vbg pH 7.21. K 6.0. Cr 2.15. Lactate 4.0. Allergies Allergy/AdvReac Type Severity Reaction Status Date / Time Penicillins AdvReac Mild GI SYMPTOMS Verified 02/08/22 18:33 Home Medications Medication Instructions Recorded Confirmed Type atorvastatin 40 mg tablet 40 mg PO DAILY 05/12/21 02/08/22 History cetirizine 10 mg tablet 10 mg PO DAILY 05/12/21 02/08/22 History digoxin 125 mcg (0.125 mg) tablet 125 mcg PO DAILY 05/12/21 02/08/22 History diltiazem HCl 240 mg 240 mg PO QAM 05/12/21 02/08/22 History capsule,extended release 24 hr fluoxetine 20 mg capsule 20 mg PO DAILY 05/12/21 02/08/22 History metformin 500 mg tablet 500 mg PO BID 05/12/21 02/08/22 History metoprolol tartrate 50 mg tablet 50 mg PO BID 05/12/21 02/08/22 History omeprazole 20 mg capsule,delayed 20 mg PO DAILY 05/12/21 02/08/22 History release rivaroxaban 15 mg tablet (Xarelto) 15 mg PO DAILY 05/12/21 02/08/22 History zafirlukast 20 mg tablet 20 mg PO BID 05/12/21 02/08/22 History furosemide 40 mg tablet (Lasix) 40 mg PO DAILY #30 tabs 05/13/21 02/08/22 Rx benzonatate 100 mg capsule 100 mg PO TID PRN cough #30 caps 01/27/22 02/08/22 Rx molnupiravir 200 mg capsule (EUA) 800 mg PO Q12H 5 days #40 caps 01/27/22 02/08/22 Rx fluticasone furoate 200 1 inh inhalation DAILY 02/08/22 02/08/22 History mcg-vilanterol 25 mcg/dose inhalation powder glipizide 5 mg tablet 5 mg PO DAILY 02/08/22 02/08/22 History losartan 25 mg tablet 25 mg PO DAILY 02/08/22 02/08/22 History Past Med/Surg History Medical History (Updated 02/08/22 @ 21:51 by Balwinder Hernández MD) Anxiety Atrial fibrillation COPD (chronic obstructive pulmonary disease) Diabetes mellitus Hyperlipidemia Hypertension Family History Other Family history non-contributory Social History Smoking Status: Unknown if ever smoked Second Hand Exposure: Yes; Preferred Language: Luxembourgish Communication Ability: Unable Centrifugal Spinner Required: No Beliefs That Will Affect Care: None marital status: / Current Living Situation: Alone Current Living Situation Comment: unable to obtain Feels Safe at Home: Yes Assistive Devices: Cane, Oxygen - Continuous and Walker Review of Systems Review of Systems: Other (Unobtainable due to extreme hard of hearing (despite hearing aids) vs cognitive status.) Physical Exam Physical Exam: General: NAD. Extreme hard of hearing. Awake and alert. HEENT: Atraumatic, normocephalic. EOMI Pulm: No acc muscle use. Wearing oxymask. Mild expiratory wheezing anteriorly. Cardiac: bradycardic rate, -mrg. Radial pulses intact and symmetrical. Abdominal: Nondistended, soft. No wincing on palpation. Integ: Warm, dry, intact. Results & Data Results & Data ([facility]) Vital Signs (Past 12 Hours) Vital Signs Pulse Pulse Resp BP Pulse Ox O2 Del Method O2 Flow Rate 02/08/22 19:57 46 L 19 110/56 L 99 Non-rebreather 15 02/08/22 19:06 100 Non-rebreather 15 02/08/22 18:53 35 L 20 86/59 L 100 Non-rebreather 15 02/08/22 18:44 Non-rebreather 15 02/08/22 18:43 19 Non-rebreather 15 02/08/22 17:33 T-Piece 15 02/08/22 18:23 31 L 23 100 Non-rebreather 15 02/08/22 18:00 30 L 12 100 Non-rebreather 15 Vital Signs Height Weight Body Mass Index Blood Pressure Pulse Rate Respiratory Rate Pulse Oximetry 5 ft 2 in 97.8 kg 39.4 171/110 H 55 L 16 100 02/08/22 18:06 02/08/22 18:06 02/08/22 18:06 02/08/22 21:12 02/08/22 21:12 02/08/22 21:12 02/08/22 21:12 Oxygen Flow Rate 9 02/08/22 21:12 Laboratory Results Cardiac Enzymes 02/08/22 Range/Units 18:34 AST 18 (13-39) U/L Troponin I High Sens 28.9 H (0-14) pg/ml Coagulation 02/08/22 Range/Units 18:34 PT 15.0 H (9.0-12.0) Seconds APTT 32.2 H (21.0-31.0) Seconds CBC 02/08/22 Range/Units 18:34 WBC 13.88 H (4.8-10.8) K/ul RBC 3.32 L (3.93-5.22) M/uL Hgb 9.0 L (12.0-16.0) g/dl Hct 30.9 L (34.1-44.9) % Plt Count 351 (130-400) K/uL Neut # (Auto) 10.38 H (1.4-6.5) K/uL Lymph # (Auto) 2.12 (1.2-3.4) K/uL Louisa # (Auto) 0.86 H (0.24-0.82) K/uL Eos # (Auto) 0.10 (0-0.50) K/uL Baso # (Auto) 0.11 (0-0.2) K/uL Comprehensive Metabolic Panel 02/08/22 Range/Units 18:34 Sodium 138 (136-145) mmol/L Potassium 6.0 H (3.5-5.1) mmol/L Chloride 108 H (98-107) mmol/L Carbon Dioxide 21 (21-32) mmol/L BUN 39 H (6-23) mg/dl Creatinine 2.15 H (0.6-1.2) mg/dl Glucose 186 H (70-99(Fasting)) mg/dl Calcium 8.5 (8.5-10.1) mg/dl AST 18 (13-39) U/L ALT 23 (7-52) U/L Alkaline Phosphatase 68 (34-104) U/L Total Protein 6.2 (6.0-8.3) gm/dl Albumin 3.5 (3.4-5.0) gm/dl Intake and Output 02/08/22 02/08/22 02/08/22 06:59 14:59 22:59 Intake Total / Balance Intake: IV / EPINEPHrine/NSS 4 mg In 254 ml 8.853 / 8.853 @ 0.02 MCG/KG/MIN 7.452 mls/hr IV .Q24H CARMEN Rx#:[id number] Sodium Chloride 0.9% 1000ML 1, 2000 / 2000 000 ml @ 999 mls/hr IV .Q1H1M ONE Rx#:[id number] Oral 0 / 0 Other: Weight 97.8 kg Weight Measurement Method Built in [facility] Patient Weight 02/09/22 06:59 Weight 97.8 kg Diagnostic Findings Abdomen/Pelvis CT 02/08/22 18:06 CT SCAN OF THE ABDOMEN AND PELVIS WITHOUT IV CONTRAST CLINICAL HISTORY: Change in mental status. COMPARISON STUDY: No priors. TECHNIQUE: CT scan of the abdomen and pelvis is performed from the lung bases to the proximal femora. Images are reviewed in the axial, sagittal, and coronal planes. IV contrast was not administered for this examination as per the referring clinician. Note that the examination was performed in significantly suboptimal fashion without oral and IV contrast. There is also motion artifact. A dose lowering technique was utilized adhering to the principles of ALARA. CT DOSE: 2183.40 mGy.cm FINDINGS: Lung bases: The heart is enlarged and without pericardial effusion. Intralobular septal thickening indicates congestive failure. There are trace pleural effusions with dependent atelectasis. A small hiatal hernia is noted. Liver: The unenhanced liver is normal in size, contour, and attenuation. There is no intrahepatic biliary ductal dilatation. Periportal edema is noted. Gallbladder: Gallbladder is mildly distended and there are surrounding infiltration. Spleen: Normal in size and attenuation. Pancreas: The unenhanced pancreas is moderately atrophic. There is peripancreatic infiltration and fluid, greatest on the pancreatic head. No organized peripancreatic fluid collection is identified. Adrenal glands: There is a 2.5 cm indeterminant left adrenal nodule. The right adrenal gland is normal in appearance. Kidneys: The unenhanced kidneys demonstrate cortical atrophy and are without hydronephrosis. There are no renal calculi identified. There is no evidence of contour deforming renal mass lesion. There is nonspecific bilateral perinephric stranding. Abdominal vasculature: The abdominal aorta is normal in course and caliber noting advanced atherosclerotic calcification. A right femoral central venous catheter is in place. Bowel: There is no bowel obstruction. The appendix is normal as visualized. Peritoneum: There is trace abdominopelvic ascites. No intraperitoneal free air is seen. There is a small fat-containing umbilical hernia. Lymphadenopathy: None. Pelvic viscera: The bladder is decompressed and not well evaluated. A Adrian catheter is inflated within the vagina. The uterus and adnexa are normal as imaged. Skeletal structures: The skeletal structures are osteopenic. There is mild to moderate lumbosacral spondylosis. No lytic or blastic lesions are seen. IMPRESSION: 1. Significantly suboptimal examination without oral and IV contrast. There is also motion artifact. 2. Cardiomegaly with evidence of congestive failure and trace pleural effusions. 3. Findings suggest acute pancreatitis. Correlate with clinical findings and serum amylase/lipase levels. 4. A Adrian catheter is inflated within the vagina. Repositioning is indicated. 5. The gallbladder is distended and there may be pericholecystic infiltration. This is not well evaluated due to significant motion artifact. Correlate with clinical and laboratory findings. If there is clinical concern for acute cholecystitis a right upper quadrant ultrasound should be obtained. 6. Trace abdominopelvic ascites. 7. There is a 2.5 cm pathologically indeterminant left adrenal nodule. 8. Additional findings as above. ACT 112: Negative or not required by law. Electronically signed by: Ab Farmer M.D. 02/08/2022 9:39 PM Chest X-Ray 02/08/22 18:06 SINGLE VIEW CHEST CLINICAL HISTORY: Sepsis. FINDINGS: An AP, portable, supine chest radiograph is compared to study dated 05/12/2021. The examination is degraded by portable technique and apical lordotic positioning. The heart is enlarged. There is pulmonary vascular congestion. Atelectasis is seen at the lung bases. No large pleural effusion or pneumothorax is identified. A calcified granuloma is suggested in the right lung base. The skeletal structures are osteopenic. The bony thorax is grossly intact. IMPRESSION: Cardiomegaly with pulmonary vascular congestion. ACT 112: Negative or not required by law. Electronically signed by: Ab Farmer M.D. 02/08/2022 6:[address] 02/08/22 18:06 CT SCAN OF THE BRAIN WITHOUT IV CONTRAST CLINICAL HISTORY: Change in mental status. COMPARISON STUDY: CT of the brain dated 08/07/2006. TECHNIQUE: Unenhanced axial CT scan of the brain is performed from the vertex to the skull base. A dose lowering technique was utilized adhering to the principles of ALARA. FINDINGS: Brain parenchyma: There is age-related involutional change noting mild to moderate subcortical and periventricular microangiopathic disease. There is no hemorrhage, mass effect, or evidence of acute territorial ischemia by CT criteria. A chronic lacunar infarct is noted in the right basal ganglia. Domínguez- white matter differentiation is preserved. No extra-axial fluid collection is seen. Ventricles, sulci, cisterns: Prominent secondary to involutional change. Intracranial vasculature: There is atherosclerotic calcification of the cavernous carotid and vertebral arteries. Calvarium: Unremarkable. Sinuses and mastoids: There is moderate mucosal thickening in the left maxillary antrum and mild mucosal thickening in the right maxillary antrum. Air-fluid levels are seen bilaterally. Mild to moderate mucosal thickening is also seen within the sphenoid and ethmoid sinuses. Mild mucosal thickening is noted in the frontal sinuses. The mastoid air cells are well pneumatized. Orbits: The bony orbits are grossly intact. There are bilateral ocular lens implants. IMPRESSION: 1. There is no hemorrhage, mass effect, or evidence of acute territorial ischemia by CT criteria. 2. Paranasal sinus disease as above. ACT 112: Negative or not required by law. Electronically signed by: Ab Farmer M.D. 02/08/2022 8:36 PM ECG Additional Comments: per my interpretation: afib slow response rate of 30 Code Status & VTE Plan Code Status full VTE Prophylaxis Plan VTE Prophylaxis will be ordered: Yes Supervising Physician Co-Signing Physician Notes Attending addendum: I have physically seen this patient, have supervised the medical residents activities, and agree with the H&P unless as otherwise noted. Assessment and Plan: Symptomatic bradycardia/atrial fibrillation/digoxin toxicity/hyperkalemia/elevated troponin/septic shock- Admitting to the ICU Digoxin mildly supratherapeutic with level of 2.2 Hold all negative inotropes: Digoxin, diltiazem and metoprolol tartrate Continue Xarelto Continue epinephrine drip begun in the ED Glucagon 5 mg IV x1 Check serial troponins, with initial troponin 28.9 Sepsis due to acute pancreatitis/possible cholecystitis/pulmonary/COVID- Follow all cultures, urine, sputum and blood Cefepime 2 g IV every 12 hours Acute on chronic respiratory failure with hypoxia multifactorial/COPD exacerbation/mild hypervolemia/COVID-19 infection- Cefepime IV as above as noted COVID-19 isolation precautions Hold on duo nebs due to heart rhythm irregularities Ongoing care per ICU Resident Activity Tracking Resident Involvement: Resident Care Provided Care Provided: Adult Hospital Medicine (1) Digoxin toxicity Encounter type: initial encounter Injury intent: accidental or unintentional Qualified Code(s): T46.0X1A - Poisoning by cardiac-stimulant glycosides and drugs of similar action, accidental (unintentional), initial encounter (2) Anemia Anemia type: unspecified type Qualified Code(s): D64.9 - Anemia, unspecified
--- NOTE | 2022-02-08 20:37 | CT Scan Report ---
CT SCAN OF THE BRAIN WITHOUT IV CONTRAST CLINICAL HISTORY: Change in mental status. COMPARISON STUDY: CT of the brain dated 08/07/2006. TECHNIQUE: Unenhanced axial CT scan of the brain is performed from the vertex to the skull base. A do se lowering technique was utilized adhering to the principles of ALARA. FINDINGS: Brain parenchyma: There is age-related involutional change noting mild to moderate subcortical and pe riventricular microangiopathic disease. There is no hemorrhage, mass effect, or evidence of acute ter ritorial ischemia by CT criteria. A chronic lacunar infarct is noted in the right basal ganglia. Domínguez -white matter differentiation is preserved. No extra-axial fluid collection is seen. Ventricles, sulci, cisterns: Prominent secondary to involutional change. Intracranial vasculature: There is atherosclerotic calcification of the cavernous carotid and vertebr al arteries. Calvarium: Unremarkable. Sinuses and mastoids: There is moderate mucosal thickening in the left maxillary antrum and mild muco ansley thickening in the right maxillary antrum. Air-fluid levels are seen bilaterally. Mild to moderate mucosal thickening is also seen within the sphenoid and ethmoid sinuses. Mild mucosal thickening is noted in the frontal sinuses. The mastoid air cells are well pneumatized. Orbits: The bony orbits are grossly intact. There are bilateral ocular lens implants. IMPRESSION: 1. There is no hemorrhage, mass effect, or evidence of acute territorial ischemia by CT criteria. 2. Paranasal sinus disease as above. ACT 112: Negative or not required by law. Electronically signed by: Ab Farmer M.D. 02/08/2022 8:36 PM
[2022-02-08] MEDS ORDERED: GLUCAGON 5 MG in SYRINGE 0 ML IV STA ×2 (21:34→21:39)
--- NOTE | 2022-02-08 21:42 | CT Scan Report ---
CT SCAN OF THE ABDOMEN AND PELVIS WITHOUT IV CONTRAST CLINICAL HISTORY: Change in mental status. COMPARISON STUDY: No priors. TECHNIQUE: CT scan of the abdomen and pelvis is performed from the lung bases to the proximal femora. Images are reviewed in the axial, sagittal, and coronal planes. IV contrast was not administered for this examination as per the referring clinician. Note that the examination was performed in signific antly suboptimal fashion without oral and IV contrast. There is also motion artifact. A dose lowering technique was utilized adhering to the principles of ALARA. CT DOSE: 2183.40 mGy.cm FINDINGS: Lung bases: The heart is enlarged and without pericardial effusion. Intralobular septal thickening in dicates congestive failure. There are trace pleural effusions with dependent atelectasis. A small hia brien hernia is noted. Liver: The unenhanced liver is normal in size, contour, and attenuation. There is no intrahepatic kymberly iary ductal dilatation. Periportal edema is noted. Gallbladder: Gallbladder is mildly distended and there are surrounding infiltration. Spleen: Normal in size and attenuation. Pancreas: The unenhanced pancreas is moderately atrophic. There is peripancreatic infiltration and fl uid, greatest on the pancreatic head. No organized peripancreatic fluid collection is identified. Adrenal glands: There is a 2.5 cm indeterminant left adrenal nodule. The right adrenal gland is saurabh l in appearance. Kidneys: The unenhanced kidneys demonstrate cortical atrophy and are without hydronephrosis. There ar e no renal calculi identified. There is no evidence of contour deforming renal mass lesion. There is nonspecific bilateral perinephric stranding. Abdominal vasculature: The abdominal aorta is normal in course and caliber noting advanced atheroscle rotic calcification. A right femoral central venous catheter is in place. Bowel: There is no bowel obstruction. The appendix is normal as visualized. Peritoneum: There is trace abdominopelvic ascites. No intraperitoneal free air is seen. There is a sm all fat-containing umbilical hernia. Lymphadenopathy: None. Pelvic viscera: The bladder is decompressed and not well evaluated. A Adrian catheter is inflated with in the vagina. The uterus and adnexa are normal as imaged. Skeletal structures: The skeletal structures are osteopenic. There is mild to moderate lumbosacral sp ondylosis. No lytic or blastic lesions are seen. IMPRESSION: 1. Significantly suboptimal examination without oral and IV contrast. There is also motion artifact. 2. Cardiomegaly with evidence of congestive failure and trace pleural effusions. 3. Findings suggest acute pancreatitis. Correlate with clinical findings and serum amylase/lipase lev els. 4. A Adrian catheter is inflated within the vagina. Repositioning is indicated. 5. The gallbladder is distended and there may be pericholecystic infiltration. This is not well evalu ated due to significant motion artifact. Correlate with clinical and laboratory findings. If there is clinical concern for acute cholecystitis a right upper quadrant ultrasound should be obtained. 6. Trace abdominopelvic ascites. 7. There is a 2.5 cm pathologically indeterminant left adrenal nodule. 8. Additional findings as above. ACT 112: Negative or not required by law. Electronically signed by: Ab Farmer M.D. 02/08/2022 9:39 PM
[2022-02-09 00:02] LABS: Base Excess ABG -7.5 mEq/L (-9-1.8); HCO3 ABG 19 mmol/L (19-24); PCO2 ABG 40 mmHg (35-46); PO2 ABG 97 mmHg (80-95); pH ABG 7.28 (7.35-7.45)
[2022-02-09 00:15] LABS: Allen Test Pos (Pos)
[2022-02-09 00:22] LABS: BUN Creatinine Ratio 17.7 (10-20); Calcium 8.1 mg/dl (8.5-10.1); Creatinine Clr Calc Pharmacy 20.1 ml/min; Est GFR (African American) 21.8 ml/min; Est GFR (Non-African American) 18.8 ml/min; Potassium 5.5 mmol/L (3.5-5.1)
[2022-02-09] MEDS ORDERED: STAT IV Infusion **Titration per Protocol STA (01:27)
[2022-02-09] MEDS ORDERED: BENZONATATE 100 MG CAPSULE PO PRN (01:55)
[2022-02-09] MEDS ORDERED: ICU PROTOCOL FOR HYPERGLYCEMIA PRN (01:55)
[2022-02-09] MEDS ORDERED: PHARMACY GLYCEMIC MGMT CONSULT PRN (01:55)
[2022-02-09] MEDS: DOPamine / D5W 400 MG/250 ML BAG IV SCH ×4 (02:05→16:49)
[2022-02-09] MEDS: NORMOSOL-R 1,000 ML IV SCH ×2 (02:07→15:24)
[2022-02-09 03:18] LABS: BUN Creatinine Ratio 16.8 (10-20); Calcium 8.1 mg/dl (8.5-10.1); Creatinine Clr Calc Pharmacy 17.2 ml/min; Est GFR (African American) 19.4 ml/min; Est GFR (Non-African American) 16.7 ml/min; Magnesium 1.3 mg/dl (1.7-2.4); Potassium 5.5 mmol/L (3.5-5.1)
[2022-02-09 03:23] LABS: Troponin I High Sensitivity 29.5 pg/ml (0-14)
--- NOTE | 2022-02-09 03:24 | Critical Care Consultation ---
Date of Consultation February 09, 2022 Assessment & Plan (1) Symptomatic bradycardia: Reason Critically Ill: 81-year-old female presents to the ICU with symptomatic bradycardia with hypotension requiring vasoactive medications Neuro - CAM negative Cardiac - Symptomatic bradycardiawe will transition to dopamine in favor of epinephrine for symptomatic bradycardia as she is having a significant amount of PVCs. No indication for transvenous pacing at this time -Digoxin level of 2.2 likely not culprit we will continue to hold. Continue to hold metoprolol. Unsure if this is unintentional overdose and she did receive glucagon -EKG with sinus bradycardia rate in the 30s without ST elevations and troponin unremarkable -Follow-up echo -Cardiology consultation -Maximize electrolytes -Continuous monitor on telemetry Atrial fibrillationpatient on Xarelto will hold for now. Continue to hold digoxin and MTP Respiratory - Acute on chronic respiratory failurepatient currently maintaining oxygen saturation on 6 L nasal cannula and 4 L at baseline -She does have recent diagnosis of 10 days ago of COVID-19 along with history of COPD -Wean oxygen as tolerated -Hold further diuresis given hypotension for now -Continue nebs -Continuous monitoring pulse ox. Wean oxygen as tolerated HTNhold antihypertensives in the setting of hypotension for now HLDcontinue statin GI - N.p.o. RENAL/LYTES - AKIcreatinine 2.5 and continuing to increase and suspect this is likely ATN in the setting of hypotension -We will continue with gentle fluid resuscitation -Maintain maps greater than 65 -Avoid nephrotoxins renally adjust medications -Patient did have initial potassium of 6. Seems to be improving with IV fluid resuscitation now 5.5. Continue to trend BMPs closely and monitor Lactic acidosissuspect this is ischemic in the setting of hypotension/hypoxia. Currently trending down and continue to trend for now - Foleystrict I's and O's ENDO - DM type IIhold oral medications in favor of sliding scale -ICU hyperglycemic protocol HEME - H&H stable, monitor routine CBCs ID - Sepsis?Patient with mild leukocytosis and elevated lactate. Pro-Jayson unremarkable and afebrile -Lyme pending -Blood cultures and urine culture pending -Patient PCR negative for COVID. Per report was diagnosed 10 days ago and received antiviral therapy. We will keep on precautions for now -Nasal MRSA negative -Continue with cefepime for now LINES/IV ACCESS - CVL femoral DVT PROPHYLAXIS - SCDs, hold apixaban for now I have personally spent 45 minutes of critical care time in the direct management of this patient. This is a life/limb threatening event. This includes time spent evaluating patient, direct bedside care, chart review, placing orders, interpretation of diagnostic studies, discussion with consultants, patient, and family members, as well as other required patient management activities. This time is exclusive of all separately billable procedures, and teaching time and separate from and in addition to any other critical care service time. Thank you for allowing us to participate in the care of this patient. Please refer to my attending physician's documentation for any further recommendations. (2) CHESTER (acute kidney injury): (3) Sepsis: (4) Diabetes mellitus: (5) COVID: (6) Acute hypotension: (7) Digoxin toxicity: (8) Acute hyperkalemia: (9) Acute and chronic respiratory failure with hypoxia: (10) Hyperlipidemia: (11) Hypertension: (12) Atrial fibrillation: (13) COPD (chronic obstructive pulmonary disease): (14) Anemia: (15) Weakness: History of Present Illness Attending Physician: Hira Lopez MD History of Present Illness 81-year-old female with past medical history significant for HTN, HLD, DM type II, COPD (4 L nasal cannula at home), A. fib on Xarelto, and recent diagnosis of COVID-19 which she took molnuprivir about 1 week ago. She presents to the emergency department with worsening altered mental status and dyspnea. Patient was found to be bradycardic with heart rate in the 30s and hypotensive. EKG with bradycardia without ST elevation. Troponin unremarkable. Lab work showed elevated lactate and CHESTER. Patient was placed on epinephrine drip. Heart rate and blood pressure were responsive to epinephrine drip and no indication for transvenous pacer at this time. Patient does take metoprolol and digoxin and unsure if this is accidental overdose. She did receive glucagon in the ER. She is now transferred to ICU for further management at this time. Allergies Allergy/AdvReac Type Severity Reaction Status Date / Time Penicillins AdvReac Mild GI SYMPTOMS Verified 02/08/22 18:33 Home Medications Medication Instructions Recorded Confirmed Type atorvastatin 40 mg tablet 40 mg PO DAILY 05/12/21 02/08/22 History cetirizine 10 mg tablet 10 mg PO DAILY 05/12/21 02/08/22 History digoxin 125 mcg (0.125 mg) tablet 125 mcg PO DAILY 05/12/21 02/08/22 History diltiazem HCl 240 mg 240 mg PO QAM 05/12/21 02/08/22 History capsule,extended release 24 hr fluoxetine 20 mg capsule 20 mg PO DAILY 05/12/21 02/08/22 History metformin 500 mg tablet 500 mg PO BID 05/12/21 02/08/22 History metoprolol tartrate 50 mg tablet 50 mg PO BID 05/12/21 02/08/22 History omeprazole 20 mg capsule,delayed 20 mg PO DAILY 05/12/21 02/08/22 History release rivaroxaban 15 mg tablet (Xarelto) 15 mg PO DAILY 05/12/21 02/08/22 History zafirlukast 20 mg tablet 20 mg PO BID 05/12/21 02/08/22 History furosemide 40 mg tablet (Lasix) 40 mg PO DAILY #30 tabs 05/13/21 02/08/22 Rx benzonatate 100 mg capsule 100 mg PO TID PRN cough #30 caps 01/27/22 02/08/22 Rx molnupiravir 200 mg capsule (EUA) 800 mg PO Q12H 5 days #40 caps 01/27/22 02/08/22 Rx fluticasone furoate 200 1 inh inhalation DAILY 02/08/22 02/08/22 History mcg-vilanterol 25 mcg/dose inhalation powder glipizide 5 mg tablet 5 mg PO DAILY 02/08/22 02/08/22 History losartan 25 mg tablet 25 mg PO DAILY 02/08/22 02/08/22 History Patient History Medical History (Updated 02/08/22 @ 21:51 by Balwinder Hernández MD) Anxiety Atrial fibrillation COPD (chronic obstructive pulmonary disease) Diabetes mellitus Hyperlipidemia Hypertension Family History Other Family history non-contributory Social History Smoking Status: Unknown if ever smoked Second Hand Exposure: Yes; Preferred Language: Korean Communication Ability: Effective Database Coordinator Required: No Beliefs That Will Affect Care: None Current Living Situation: Alone Current Living Situation Comment: unable to obtain Feels Safe at Home: Yes Assistive Devices: Oxygen - Continuous Review of Systems Review of Systems: Review of systems limited as patient is extremely hard of hearing. She did state that she feels shortness of breath and has had a cough for a couple of weeks. She denies any chest pain dizziness or syncope, shortness of breath, abdominal pain, nausea or vomiting or diarrhea. She denies fevers. Physical Exam Constitutional: cooperative and comfortable Eyes: PERRL, conjunctivae normal, anicteric sclerae ENMT: external ear and nose normal, oropharynx normal Neck: trachea midline, no thyromegaly Respiratory: normal respiratory effort, lungs clear to auscultation Cardiovascular: RRR, no murmur, no edema Heart Sounds: normal S1 and normal S2 Extremities: normal capillary refill; no edema Gastrointestinal (Abdomen): normal bowel sounds, soft, nontender, no hepatosplenomegaly Musculoskeletal: no cyanosis or clubbing, extremities motor strength 5/5 Skin: no rashes, warm and dry Neurologic: PERRL, EOMI, accommodation nl, no face palsy, no dysarthria Psychiatric: A+Ox3, euthymic affect Results & Data Results & Data ([facility]) Vital Signs (Past 12 Hours) Vital Signs Pulse Pulse Resp BP Pulse Ox O2 Del Method O2 Flow Rate 02/09/22 00:37 61 17 103/57 L 97 Room Air 02/08/22 23:47 53 L 18 80/64 L 99 Nasal Cannula 6 02/08/22 22:00 59 L 16 120/58 L 02/08/22 22:00 26 H 100 Nasal Cannula 6 02/08/22 21:12 55 L 16 171/110 H 100 Aerosol Mask 02/08/22 21:00 16 98 Aerosol Mask 02/08/22 20:00 58 L 16 160/58 H 98 Aerosol Mask 9 02/08/22 20:00 18 97 02/08/22 20:07 52 L 24 100 Nebulizer 8 02/08/22 19:57 46 L 19 110/56 L 99 Non-rebreather 02/08/22 19:06 100 Non-rebreather 02/08/22 18:53 35 L 20 86/59 L 100 Non-rebreather 15 02/08/22 18:44 Non-rebreather 15 02/08/22 18:43 19 Non-rebreather 02/08/22 17:33 T-Piece 02/08/22 18:23 31 L 23 100 Non-rebreather 15 02/08/22 18:00 30 L 12 100 Non-rebreather 15 Coding Level of Care Code Critical Care 1st 30-74 mins Diagnoses Symptomatic bradycardia R00.1 CHESTER (acute kidney injury) N17.9 Sepsis A41.9 Diabetes mellitus E11.9 COVID U07.1 Acute hypotension I95.9 Digoxin toxicity T46.0X1A Encounter type: initial encounter Injury intent: accidental or unintentional Acute hyperkalemia E87.5 Acute and chronic respiratory failure with hypoxia J96.21 Hyperlipidemia E78.5 Hypertension I10 Atrial fibrillation I48.91 COPD (chronic obstructive pulmonary disease) J44.9 Anemia D64.9 Anemia type: unspecified type Weakness R53.1 (1) Digoxin toxicity Encounter type: initial encounter Injury intent: accidental or unintentional Qualified Code(s): T46.0X1A - Poisoning by cardiac-stimulant glycosides and drugs of similar action, accidental (unintentional), initial encounter (2) Anemia Anemia type: unspecified type Qualified Code(s): D64.9 - Anemia, unspecified
[2022-02-09 03:28] LABS: Hematocrit (blood only) 29.1 % (34.1-44.9); Hemoglobin 8.5 g/dl (12.0-16.0); Mean Corpuscular Hgb Conc 29.2 g/dL (32.0-36.0); Mean Corpuscular Volume 92.4 fL (80.0-100.0); Mean Platelet Volume 10.8 fL (9.4-12.3); Platelet Count 338 K/uL (130-400); RDW Coefficient of Variation 17.4 % (11.5-14.5); RDW Standard Deviation 59.5 fL (36.4-46.3); Red Blood Count 3.15 M/uL (3.93-5.22); White Blood Count 28.17 K/ul (4.8-10.8)
[2022-02-09 03:35] LABS: Basophils # (auto) 0.07 K/uL (0-0.2); Basophils % (auto) 0.2 %; Echinocytes 1+; Immature Granulocytes # (auto) 0.39 K/uL (0.00-0.02); Immature Granulocytes % (auto) 1.4 %; Lymphocytes # (auto) 1.34 K/uL (1.2-3.4); Lymphocytes % (auto) 4.8 %; Monocytes # (auto) 2.58 K/uL (0.24-0.82); Monocytes % (auto) 9.2 %; Neutrophils # (auto) 23.79 K/uL (1.4-6.5); Neutrophils % (auto) 84.4 %; Polychromasia 1+
[2022-02-09] MEDS ORDERED: CARBOHYDRATES FOR HYPOGLYCEMIA PO PRN (04:00)
[2022-02-09] MEDS ORDERED: GLUCAGON FOR INJ 1 MG VIAL SQ PRN (04:00)
[2022-02-09] MEDS ORDERED: GLUCOSE 40% GEL 15 GM TUBE PO PRN (04:00)
[2022-02-09] MEDS ORDERED: DEXTROSE 50% 50 ML SYRINGE IV PRN (04:00)
[2022-02-09] MEDS ORDERED: GLUCOSE 10 TAB/TUBE PO PRN (04:00)
[2022-02-09] MEDS: MAGNESIUM SULFATE / D5W 1 GM/100 ML BAG IV SCH ×4 (04:46→10:58)
[2022-02-09] MEDS: INSULIN ASPART PER UNIT SC SCH ×4 (05:54→23:35)
[2022-02-09 06:13] LABS: Hemoglobin 8.9 g/dl (12.0-16.0); Mean Corpuscular Hgb Conc 29.7 g/dL (32.0-36.0); Mean Corpuscular Volume 90.9 fL (80.0-100.0); Mean Platelet Volume 11.3 fL (9.4-12.3); Nucleated RBC # (auto) 0.02 K/uL (0-0); Nucleated RBC % (auto) 0.1 %; Platelet Count 348 K/uL (130-400); RDW Coefficient of Variation 17.4 % (11.5-14.5); White Blood Count 27.79 K/ul (4.8-10.8)
[2022-02-09 06:36] LABS: Albumin Globulin Ratio 1.3 (0.9-2); Albumin Level 3.8 gm/dl (3.4-5.0); BUN Creatinine Ratio 17.4 (10-20); Bilirubin,Total 0.4 mg/dl (0.2-1.0); Calcium 8.2 mg/dl (8.5-10.1); Creatinine Clr Calc Pharmacy 17.5 ml/min; Est GFR (African American) 19.6 ml/min; Est GFR (Non-African American) 16.9 ml/min; Globulin 2.9 gm/dl (2.5-4.0); Magnesium 1.8 mg/dl (1.7-2.4); Phosphorus 4.9 mg/dl (2.5-4.9); Total Protein 6.7 gm/dl (6.0-8.3)
[2022-02-09 06:40] LABS: Troponin I High Sensitivity 29.3 pg/ml (0-14)
[2022-02-09] MEDS ORDERED: SODIUM POLYSTYRENE SULFONATE 15G/60ML SUSP PO STA (06:42)
[2022-02-09 06:50] LABS: Basophils # (auto) 0.06 K/uL (0-0.2); Basophils % (auto) 0.2 %; Immature Granulocytes # (auto) 0.36 K/uL (0.00-0.02); Immature Granulocytes % (auto) 1.3 %; Lymphocytes # (auto) 1.73 K/uL (1.2-3.4); Lymphocytes % (auto) 6.2 %; Monocytes # (auto) 2.21 K/uL (0.24-0.82); Neutrophils # (auto) 23.43 K/uL (1.4-6.5); Neutrophils % (auto) 84.3 %
[2022-02-09] MEDS ORDERED: DEXTROSE 50% 50 ML SYRINGE IV ONE (06:59)
[2022-02-09] MEDS ORDERED: INSULIN HUMAN REGULAR PER UNIT 10 UNITS in SYRINGE 9.9 ML IV ONE (07:00)
[2022-02-09 07:06] LABS: Lyme Ab IgG w/WB Rflx Negative (Negative); Lyme Ab IgM w/WB Rflx Negative (Negative)
[2022-02-09] MEDS ORDERED: ONDANSETRON INJ 2 MG/ML 2 ML VIAL ONE (08:02)
[2022-02-09] MEDS ORDERED: ONDANSETRON INJ 2 MG/ML 2 ML VIAL IV PRN (08:05)
--- NOTE | 2022-02-09 09:56 | Hospitalist Progress Note ---
Date of Service February 09, 2022 Assessment & Plan (1) Symptomatic bradycardia: Plan: 81 year old female w/ PMHx of HTN, HLD, DM, COPD, AF on Xarelto, and recent covid (s/p molupiravir) diagnosed ~1 wk ago presents w/ sepsis, worsened hypoxia, CHESTER, and severe bradycardia. - considered supratherapeutic digoxin (level 2.2) vs beta vaughn or CCB overdose. Home regimen consists of digoxin, diltiazem, and metoprolol - s/p atropine in the field and epi x2 - Suspect bradycardia is multifactorial- triggered by acute illness in elderly patient with several comorbidities and polypharmacy - Continue dopamine infusion, HR stable high 40s-50s, attempt to wean - Cardiology consulted -Pacemaker not urgently required and pt likely does not meet criteria currently -Will need to monitor her HR while off rate control medications before evaluation for potential pacemaker - Treatment initiated for digoxin toxicity -Digibind administered -Recheck digoxin level 1.0 (2) Sepsis: Plan: - w/ elevated lactate 4.0, wbc 13.8, cefepime started on admission - MRSA nares negative, procalcitonin negative, BCx and UCx pending - per CT abd, acute pancreatitis findings seen and cannot r/o gallbladder pathology, lipase wnl - Hold additional fluids for now. pulm vasc congestion noted on cxr. - Lactate downtrending to 2, fibrinogen wnl, WBC increase to 28 - Cefepime discontinued 02/09 (3) Acute and chronic respiratory failure with hypoxia: Plan: - home 4L O2 - exacerbation 2/2 hypervolemia vs pneumonia vs covid vs copd exacerbation - cxr w/ congestion, CT demonstrating cardiomegaly with b/l pleural effusions - Currently saturating well on 6L NC, attempt to wean to 4L (4) CHESTER (acute kidney injury): Plan: - may be 2/2 covid, molupiravir, sepsis - Cr increasing from 2.15 on admission to 2.65 - Adrian catheter placed due to low UOP - Continue IVF w/ Normosol - follow bmp. avoid nephrotoxic agents. renally dose meds (5) COPD (chronic obstructive pulmonary disease): Plan: - see above (6) Digoxin toxicity: Plan: - digoxin level 2.2, slightly supratherapeutic (7) Anemia: Plan: - Hb 9.0, appears stable from last year. (8) Acute hyperkalemia: Plan: - K 6 on admission, given IV dextrose, IV insulin 10u, and albuterol - K downtrend to 5.5 but currently 5.8 - Kayexalate given - Continue to trend BMP (9) Acute hypotension: Plan: - resolved. follow blood cultures, pending. hold home bp meds (10) Weakness: Plan: 2/2 bradycardia vs covid vs other infection vs sepsis (11) Atrial fibrillation: Plan: - AF w/ slow response, appears to vacillate between sinus bradycardia and atrial fibrillation - Hold home Xarelto given CHESTER and home metoprolol, diltiazem, and digoxin given bradycardia (12) Diabetes mellitus: Plan: - last a1c 7.0. hold home regimen. pharmacy glycemic consult. (13) COVID: Plan: - covid isolation precautions - Negative RNA test on admission but positive home test 10 days prior Plan Diet, fluids: NPO, IVF with Normosol ppx: Hold home Xarelto code: full (per EMS triage sheet; I do not know where EMS obtained confirmation from). Unable to verify with patient. I called patient's POA, sister in law who states that patient had written documentation which she does not have on her at the moment. dispo: ICU Admission and Anticipated Discharge Date Admission Date: February 08, 2022 Supervising Physician Co-Signing Physician Notes I personally examined the patient and verified all choi points of history and exam, discussed case, and agree with decision making with Dr Salgado. Feeling better. Notes that she has a little bit of a cough with maybe a tiny bit of yellow sputum at first that clears quickly to just clear sputum. No real shortness of breath. No fevers chills or sweats. She is much more alert than she was this morningknows she is in the hospitalis very hard of hearing but communicates well with the written word. She has no other complaints or questions, and expresses appreciation for her care. Vitals noted, in general she is awake and alert seems to be oriented now, although appears to have not been at all earlier. No distress. HEENT normocephalic atraumatic mucous membranes moist. Breathing unlabored no accessory muscle use good effort. Skin shows no rashes no pallor or icterus. Neuro without focal deficits. Altered mental statusdeliriumquestion being whether it was related to bradycardia/medication side effect, or related to infectious process. Either way is improving. Bradycardiaappears predominantly to be med side effectheart rates improving, hemodynamically stable. Follow closely. Leukocytosisquite significant but no clear source. Serial exams, serial histories, serial labs. Follow closely. Otherwise as above and per ICU Subjective No acute events overnight. Pt states she feels well. Denies any difficulty breathing, nor any palpitations or chest pain, lightheadedness. Does feel fatigued. Denies any abdominal pain, nausea, vomiting. She appeared fixated on cancelling a salon appointment and requested my help to call her family and arrange this. Review of Systems Review of Systems: Per subjective Physical Exam Constitutional: cooperative and comfortable Eyes: PERRL, conjunctivae normal, anicteric sclerae ENMT: external ear and nose normal, oropharynx normal Neck: trachea midline, no thyromegaly Respiratory: normal respiratory effort, lungs clear to auscultation Cardiovascular: RRR, no murmur, no edema Heart Sounds: normal S1 and normal S2 Extremities: normal capillary refill; no edema Gastrointestinal (Abdomen): normal bowel sounds, soft, nontender, no hepatosplenomegaly Musculoskeletal: no cyanosis or clubbing, extremities motor strength 5/5 Skin: no rashes, warm and dry Neurologic: PERRL, EOMI, accommodation nl, no face palsy, no dysarthria Psychiatric: A+Ox3, euthymic affect Results & Data Results & Data ([facility]) Vital Signs (Past 12 Hours) Vital Signs Temp Pulse Pulse Resp BP BP Pulse Ox 02/09/22 06:32 36.2 C L 45 L 20 96 02/09/22 06:32 136/48 L 02/09/22 06:30 36.2 C L 45 L 21 87 L 02/09/22 06:01 36.2 C L 47 L 16 100 02/09/22 06:01 111/60 02/09/22 05:31 128/35 L 02/09/22 05:31 36.4 C L 47 L 24 95 02/09/22 05:00 36.5 C 49 L 21 96 02/09/22 05:00 132/46 L 02/09/22 04:56 36.5 C 46 L 22 97 08/03/22 04:56 134/47 L 02/09/22 04:30 36.5 C 55 L 24 98 02/09/22 04:01 146/51 H 02/09/22 04:01 36.6 C 52 L 21 96 02/09/22 03:31 143/51 H 02/09/22 03:31 36.7 C 53 L 20 97 02/09/22 03:00 36.9 C 45 L 24 94 02/09/22 02:30 37.2 C 51 L 26 H 89 L 02/09/22 02:15 145/77 H 02/09/22 02:15 37.3 C 59 L 20 96 02/09/22 02:00 37.3 C 57 L 26 H 87 L 02/09/22 01:30 68 21 92 02/09/22 01:23 65 29 H 97 02/09/22 01:23 144/73 H 02/09/22 01:15 61 22 98 02/09/22 01:55 02/09/22 01:55 37.2 C 52 L 24 144/73 H 92 02/09/22 00:37 61 17 103/57 L 97 02/08/22 23:47 53 L 18 80/64 L 99 02/08/22 22:00 59 L 16 120/58 L 02/08/22 22:00 26 H 100 O2 Del Method O2 Flow Rate 02/09/22 06:32 02/09/22 06:32 02/09/22 06:30 02/09/22 06:01 02/09/22 06:01 02/09/22 05:31 02/09/22 05:31 02/09/22 05:00 02/09/22 05:00 02/09/22 04:56 02/09/22 04:56 02/09/22 04:30 02/09/22 04:01 02/09/22 04:01 02/09/22 03:31 02/09/22 03:31 02/09/22 03:00 02/09/22 02:30 02/09/22 02:15 02/09/22 02:15 02/09/22 02:00 02/09/22 01:30 02/09/22 01:23 02/09/22 01:23 02/09/22 01:15 02/09/22 01:55 Nasal Cannula 6 02/09/22 01:55 Nasal Cannula 6 02/09/22 00:37 Room Air 02/08/22 23:47 Nasal Cannula 6 02/08/22 22:00 02/08/22 22:00 Nasal Cannula 6 Resident Activity Tracking Resident Involvement: Resident Care Provided Care Provided: Adult Hospital Medicine (1) Digoxin toxicity Encounter type: initial encounter Injury intent: accidental or unintentional Qualified Code(s): T46.0X1A - Poisoning by cardiac-stimulant glycosides and drugs of similar action, accidental (unintentional), initial encounter (2) Anemia Anemia type: unspecified type Qualified Code(s): D64.9 - Anemia, unspecified
--- NOTE | 2022-02-09 10:04 | Communication Note ---
Date of Service: February 09, 2022 Increasing potassium, vomited after Kayexalate given acute kidney injury and cardiovascular findings with elevated digoxin level we will treat this as a di goxin toxicity using the chronic exposure formula. Repeating digoxin level there was question of multiple dosings/incorrect dosing upon the part of the patient we will recheck a digoxin level. Still requiring vasoactive's for hemodynamic support. Heart rhythm vacillating between atrial fibrillation and sinus bradycardia. No urine output overnight however this is from pure wick, nursing having difficulty place Adrian will attempt with smaller Adrian secondary to possible stricture. Right femoral CVC placed in ED, will continue at this time. Discontinuing antibiotics, there is no oxygen requirement, procalcitonin is negative despite acute kidney injury, suspect this is secondary to either additional doses of digoxin in the setting of chronic exposure versus small prerenal azotemia leading to accumulation of digoxin, doubt sepsis in origin. I have personally spent 50 minutes of critical care time in the direct management of this patient. This is a life/limb threatening event. This includes time spent evaluating patient, direct bedside care, chart review, placing orders, interpretation of diagnostic studies, discussion with consultants, patient, and/or family members regarding treatment decisions, as well as other required patient management activities. This time is exclusive of all separately billable procedures, and teaching time and separate from and in addition to any other critical care service time. Coding Level of Care Code Critical Care devaughn rodrigues'l 30 min
[2022-02-09] MEDS ORDERED: 0.2 MICRON FILTER SET 1 EACH IV ONE (10:15)
[2022-02-09] MEDS ORDERED: DIGOXIN IMMUNE FAB (OVINE) 80 MG in 0.9 % SODIUM CHLORIDE 100 ML IV ONE (10:15)
--- NOTE | 2022-02-09 10:18 | Electrocardiogram Report ---
Test Reason : Blood Pressure : / mmHG Vent. Rate : 033 BPM Atrial Rate : 030 BPM P-R Int : 000 ms QRS Dur : 092 ms QT Int : 492 ms P-R-T Axes : 000 081 061 degrees QTc Int : 364 ms Atrial fibrillation with slow ventricular response with premature ventricular or aberrantly conducted complexes Nonspecific ST abnormality Abnormal ECG When compared with ECG of 08-FEB-2022 18:28, (unconfirmed) T wave inversion no longer evident in Lateral leads Confirmed by Reza Mcclendon ([id number]) on 02/09/2022 10:18:18 AM Referred By: REFERRED SELF Confirmed By:Sheldon Mcclendon
[2022-02-09 10:58] LABS: Base Excess VBG -6.2 mEq/L; HCO3 VBG 22 mmol/L; Oxygen Saturation VBG < 60.0 %; PCO2 VBG 52 mmHg (38-50); PO2 VBG 34 mmHg; pH VBG 7.23 (7.36-7.41)
[2022-02-09] MEDS: FAMOTIDINE 20 MG TAB PO SCH (10:59)
[2022-02-09] MEDS: FLUoxetine HCL 20 MG CAP PO SCH (10:59)
[2022-02-09] MEDS: CETIRIZINE HCL 10 MG TABLET PO SCH (10:59)
[2022-02-09] MEDS: ATORVASTATIN 40 MG TAB PO SCH (10:59)
[2022-02-09] MEDS: FLUTICASONE/VILANTEROL 200/25MCG 14 PUFFS/INHALER INH SCH (10:59)
[2022-02-09 11:16] LABS: Fibrinogen 400 mg/dl (184-400); INR 1.3 (0.9-1.1); Partial Thromboplastin Ratio 1.2; Partial Thromboplastin Time 31.9 Seconds (21.0-31.0); Prothrombin Time 13.3 Seconds (9.0-12.0)
--- NOTE | 2022-02-09 11:17 | Cardiology Consultation ---
Date of Consultation February 09, 2022 Assessment & Plan (1) Symptomatic bradycardia: (2) Digoxin toxicity: (3) Atrial fibrillation: Plan 1. Bradycardia: Underlying rhythm appears to be atrial fibrillation. She does have a slow ventricular rate. This is improved slightly since admission. Previously on an epinephrine infusion now transition to dopamine. She has not been seen in our outpatient setting in 4 years. In May of last year her average heart rate appear to be in the 60s. She is on an aggressive regimen for rate control of her atrial fibrillation to include diltiazem, metoprolol and digoxin. Her medical compliance is in question. With her altered mental status we cannot accurately gauge her compliance or the possibility of a medication overdose. While her digoxin level is not extremely high, many of her symptoms could be related to toxicity from the medication. I think monitoring her heart rate response over time is reasonable, but I would have a low threshold for administration of Digibind. I do not think there is an urgent indication for a temporary pacemaker. Do not think she currently meets criteria for a permanent pacemaker as we should monitor her response off of medications. She also appears to have an acute infectious process which ideally would resolved before any invasive treatments. 2. Atrial fibrillation: Unclear duration. Likely permanent. The previously known to have some element of bradycardia but maintained on aggressive rate control. Will certainly need to monitor her response off of medication and determine the appropriate regimen at some point. She has been maintained on anticoagulation with Xarelto. In the setting of her acute renal injury this is being held. 3. Digoxin toxicity: Her last recorded digoxin level was 1.5 2 years ago. She was hyperkalemic at the time of admission which is a poor prognostic sign but possibly related to her renal injury as well. Electrolytes improved. Repeat digoxin level pending. History of Present Illness Reason for Consultation: Bradycardia Requesting Physician: Damian Attending Physician: Sudheer Valentino DO History of Present Illness The patient is an 81-year-old woman with a history of atrial fibrillation who was admitted to the [facility] for bradycardia, acute renal injury, breathing difficulty and mental status changes. Patient was previously followed in our clinic but does not appear to have been seen in approximately 4 years. She has been followed by her primary care physician who retired recently. It seems that she was discovered by family members to have some altered mental status and brought to the emergency room. She may have had some weakness recently was known to have tested positive for COVID-19. Unfortunately, due to the patient's cognitive dysfunction no additional history could be obtained from the patient. Allergies Allergy/AdvReac Type Severity Reaction Status Date / Time Penicillins AdvReac Mild GI SYMPTOMS Verified 02/08/22 18:33 Home Medications Medication Instructions Recorded Confirmed Type atorvastatin 40 mg tablet 40 mg PO DAILY 05/12/21 02/08/22 History cetirizine 10 mg tablet 10 mg PO DAILY 05/12/21 02/08/22 History digoxin 125 mcg (0.125 mg) tablet 125 mcg PO DAILY 05/12/21 02/08/22 History diltiazem HCl 240 mg 240 mg PO QAM 05/12/21 02/08/22 History capsule,extended release 24 hr fluoxetine 20 mg capsule 20 mg PO DAILY 05/12/21 02/08/22 History metformin 500 mg tablet 500 mg PO BID 05/12/21 02/08/22 History metoprolol tartrate 50 mg tablet 50 mg PO BID 05/12/21 02/08/22 History omeprazole 20 mg capsule,delayed 20 mg PO DAILY 05/12/21 02/08/22 History release rivaroxaban 15 mg tablet (Xarelto) 15 mg PO DAILY 05/12/21 02/08/22 History zafirlukast 20 mg tablet 20 mg PO BID 05/12/21 02/08/22 History furosemide 40 mg tablet (Lasix) 40 mg PO DAILY #30 tabs 05/13/21 02/08/22 Rx benzonatate 100 mg capsule 100 mg PO TID PRN cough #30 caps 01/27/22 02/08/22 Rx molnupiravir 200 mg capsule (EUA) 800 mg PO Q12H 5 days #40 caps 01/27/22 02/08/22 Rx fluticasone furoate 200 1 inh inhalation DAILY 02/08/22 02/08/22 History mcg-vilanterol 25 mcg/dose inhalation powder glipizide 5 mg tablet 5 mg PO DAILY 02/08/22 02/08/22 History losartan 25 mg tablet 25 mg PO DAILY 02/08/22 02/08/22 History Patient History Medical History (Updated 02/08/22 @ 21:51 by Balwinder Hernández MD) Anxiety Atrial fibrillation COPD (chronic obstructive pulmonary disease) Diabetes mellitus Hyperlipidemia Hypertension Family History Other Family history non-contributory Social History Smoking Status: Unknown if ever smoked Second Hand Exposure: Yes; Preferred Language: Korean Communication Ability: Effective Civil Engineer Required: No Beliefs That Will Affect Care: None Current Living Situation: Alone Current Living Situation Comment: unable to obtain Feels Safe at Home: Yes Assistive Devices: Oxygen - Continuous Review of Systems Review of Systems: Unobtainable due to cognitive status Physical Exam Physical Exam: She is alert and answered some questions. However, not always appropriately. She is hard of hearing but also had difficulty interpreting written questions. HEENT: Sclerae are anicteric. Pupils are equal and reactive to light and accommodation. Extraocular movements were intact. Neuro: Cranial nerves intact Lungs: Apices appear clear. Normal respiratory effort. No expiratory wheezing. Cardiac: The rhythm was regular but slow. Occasional ectopy. S1 and S2 were normal. There are no murmurs on examination. The PMI was not markedly displaced on palpation. Abdomen: The abdomen was soft and nontender. Extremities: Patient has bilateral radial pulses that are equal in intensity. There is no evidence cyanosis or clubbing. There was no evidence of significant peripheral edema bilaterally. Skin: There are no rashes noted on examination today. Results & Data ([facility]) Vital Signs (Past 12 Hours) Vital Signs Temp Pulse Pulse Resp BP BP Pulse Ox 02/09/22 06:32 36.2 C L 45 L 20 96 02/09/22 06:32 136/48 L 02/09/22 06:30 36.2 C L 45 L 21 87 L 02/09/22 06:01 36.2 C L 47 L 16 100 02/09/22 06:01 111/60 02/09/22 05:31 128/35 L 02/09/22 05:31 36.4 C L 47 L 24 95 02/09/22 05:00 36.5 C 49 L 21 96 02/09/22 05:00 132/46 L 02/09/22 04:56 36.5 C 46 L 22 97 02/09/22 04:56 134/47 L 02/09/22 04:30 36.5 C 55 L 24 98 02/09/22 04:01 146/51 H 02/09/22 04:01 36.6 C 52 L 21 96 02/09/22 03:31 143/51 H 02/09/22 03:31 36.7 C 53 L 20 97 02/09/22 03:00 36.9 C 45 L 24 94 02/09/22 02:30 37.2 C 51 L 26 H 89 L 02/09/22 02:15 145/77 H 02/09/22 02:15 37.3 C 59 L 20 96 02/09/22 02:00 37.3 C 57 L 26 H 87 L 02/09/22 01:30 68 21 92 02/09/22 01:23 65 29 H 97 02/09/22 01:23 144/73 H 02/09/22 01:15 61 22 98 02/09/22 01:55 02/09/22 01:55 37.2 C 52 L 24 144/73 H 92 02/09/22 00:37 61 17 103/57 L 97 02/08/22 23:47 53 L 18 80/64 L 99 O2 Del Method O2 Flow Rate 02/09/22 06:32 02/09/22 06:32 02/09/22 06:30 02/09/22 06:01 02/09/22 06:01 02/09/22 05:31 02/09/22 05:31 02/09/22 05:00 02/09/22 05:00 02/09/22 04:56 02/09/22 04:56 02/09/22 04:30 02/09/22 04:01 02/09/22 04:01 02/09/22 03:31 02/09/22 03:31 02/09/22 03:00 02/09/22 02:30 02/09/22 02:15 02/09/22 02:15 02/09/22 02:00 02/09/22 01:30 02/09/22 01:23 02/09/22 01:23 02/09/22 01:15 02/09/22 01:55 Nasal Cannula 6 02/09/22 01:55 Nasal Cannula 6 02/09/22 00:37 Room Air 02/08/22 23:47 Nasal Cannula 6 Laboratory Results Abnormal Lab Results 08/02/22 08/02/22 08/02/22 18:34 18:34 18:34 WBC 13.88 H RBC 3.32 L Hgb 9.0 L Hct 30.9 L MCV 93.1 MCH 27.1 MCHC 29.1 L RDW Std Deviation 59.4 H RDW Coeff of [place] 17.3 H Plt Count 351 MPV 11.2 Immature Gran % (Auto) 2.2 Neut % (Auto) 74.8 Lymph % (Auto) 15.3 [place] % (Auto) 6.2 Eos % (Auto) 0.7 Baso % (Auto) 0.8 Neut # (Auto) 10.38 H Lymph # (Auto) 2.12 [place] # (Auto) 0.86 H Eos # (Auto) 0.10 Baso # (Auto) 0.11 Immature Gran # (Auto) 0.31 H Absolute Nucleated RBC Nucleated RBC % (auto) Polychromasia Echinocytes ESR 23 PT 15.0 H INR 1.4 H APTT 32.2 H PTT Ratio 1.2 Fibrinogen ABG pH ABG pCO2 ABG pO2 ABG HCO3 ABG O2 Saturation ABG Base Excess Angelo Test VBG pH VBG pCO2 VBG pO2 VBG HCO3 VBG O2 Saturation VBG Base Excess Oxygen Given Sodium Potassium Chloride Carbon Dioxide Anion Gap BUN Creatinine Est Cr Clr Drug Dosing Est GFR ( Amer) Est GFR (Non-Af Amer) BUN/Creatinine Ratio Glucose POC Glucose Lactate Calcium Phosphorus Magnesium Total Bilirubin AST ALT Alkaline Phosphatase Troponin I High Sens C-Reactive Protein Total Protein Albumin Globulin Albumin/Globulin Ratio Lipase Procalcitonin Nasal Screen MRSA (PCR) Digoxin Anaplasma Smear Babesia Smear Lyme Disease IgG Ab Lyme Disease IgM Ab SARS-CoV-2, RNA, NAAT 02/08/22 02/08/22 02/08/22 18:34 18:34 18:34 WBC RBC Hgb Hct MCV MCH MCHC RDW Std Deviation RDW Coeff of [place] Plt Count MPV Immature Gran % (Auto) Neut % (Auto) Lymph % (Auto) [place] % (Auto) Eos % (Auto) Baso % (Auto) Neut # (Auto) Lymph # (Auto) [place] # (Auto) Eos # (Auto) Baso # (Auto) Immature Gran # (Auto) Absolute Nucleated RBC Nucleated RBC % (auto) Polychromasia Echinocytes ESR PT INR APTT PTT Ratio Fibrinogen ABG pH ABG pCO2 ABG pO2 ABG HCO3 ABG O2 Saturation ABG Base Excess [place] Test VBG pH VBG pCO2 VBG pO2 VBG HCO3 VBG O2 Saturation VBG Base Excess Oxygen Given Sodium 138 Potassium 6.0 H Chloride 108 H Carbon Dioxide 21 Anion Gap 9 BUN 39 H Creatinine 2.15 H Est Cr Clr Drug Dosing 21.7 Est GFR ( Amer) 23.9 Est GFR (Non-Af Amer) 20.6 BUN/Creatinine Ratio 18.1 Glucose 186 H POC Glucose Lactate 4.0 H* Calcium 8.5 Phosphorus Magnesium 1.7 Total Bilirubin 0.4 AST 18 ALT 23 Alkaline Phosphatase 68 Troponin I High Sens 28.9 H C-Reactive Protein < 0.50 Total Protein 6.2 Albumin 3.5 Globulin 2.7 Albumin/Globulin Ratio 1.3 Lipase Procalcitonin Nasal Screen MRSA (PCR) Digoxin 2.2 H Anaplasma Smear Babesia Smear Lyme Disease IgG Ab Lyme Disease IgM Ab SARS-CoV-2, RNA, NAAT 02/08/22 02/08/22 02/08/22 18:34 18:34 18:48 WBC RBC Hgb Hct MCV MCH MCHC RDW Std Deviation RDW Coeff of [place] Plt Count MPV Immature Gran % (Auto) Neut % (Auto) Lymph % (Auto) [place] % (Auto) Eos % (Auto) Baso % (Auto) Neut # (Auto) Lymph # (Auto) [place] # (Auto) Eos # (Auto) Baso # (Auto) Immature Gran # (Auto) Absolute Nucleated RBC Nucleated RBC % (auto) Polychromasia Echinocytes ESR PT INR APTT PTT Ratio Fibrinogen ABG pH ABG pCO2 ABG pO2 ABG HCO3 ABG O2 Saturation ABG Base Excess Angelo Test VBG pH 7.21 L VBG pCO2 50 VBG pO2 27 VBG HCO3 20 VBG O2 Saturation < 60.0 VBG Base Excess -8.1 Oxygen Given Sodium Potassium Chloride Carbon Dioxide Anion Gap BUN Creatinine Est Cr Clr Drug Dosing Est GFR ( Amer) Est GFR (Non-Af Amer) BUN/Creatinine Ratio Glucose POC Glucose Lactate Calcium Phosphorus Magnesium Total Bilirubin AST ALT Alkaline Phosphatase Troponin I High Sens C-Reactive Protein Total Protein Albumin Globulin Albumin/Globulin Ratio Lipase Procalcitonin 0.05 Nasal Screen MRSA (PCR) Digoxin Anaplasma Smear Babesia Smear Lyme Disease IgG Ab Lyme Disease IgM Ab SARS-CoV-2, RNA, NAAT NEGATIVE 0802/08/22 02/08/22 20:56 21:00 23:48 WBC RBC Hgb Hct MCV MCH MCHC RDW Std Deviation RDW Coeff of [place] Plt Count MPV Immature Gran % (Auto) Neut % (Auto) Lymph % (Auto) [place] % (Auto) Eos % (Auto) Baso % (Auto) Neut # (Auto) Lymph # (Auto) [place] # (Auto) Eos # (Auto) Baso # (Auto) Immature Gran # (Auto) Absolute Nucleated RBC Nucleated RBC % (auto) Polychromasia Echinocytes ESR PT INR APTT PTT Ratio Fibrinogen ABG pH ABG pCO2 ABG pO2 ABG HCO3 ABG O2 Saturation ABG Base Excess Angel[place] Test VBG pH VBG pCO2 VBG pO2 VBG HCO3 VBG O2 Saturation VBG Base Excess Oxygen Given Sodium 138 Potassium 5.5 H Chloride 110 H Carbon Dioxide 22 Anion Gap 6 BUN 41 H Creatinine 2.32 H Est Cr Clr Drug Dosing 20.1 Est GFR ( Amer) 21.8 Est GFR (Non-Af Amer) 18.8 BUN/Creatinine Ratio 17.7 Glucose 145 H POC Glucose 122 H Lactate 3.2 H* Calcium 8.1 L Phosphorus Magnesium Total Bilirubin AST ALT Alkaline Phosphatase Troponin I High Sens C-Reactive Protein Total Protein Albumin Globulin Albumin/Globulin Ratio Lipase 14 Procalcitonin Nasal Screen MRSA (PCR) Digoxin Anaplasma Smear Babesia Smear Lyme Disease IgG Ab Lyme Disease IgM Ab SARS-CoV-2, RNA, NAAT 02/08/22 02/09/22 02/09/22 23:53 02:42 02:42 WBC 28.17 H D RBC 3.15 L Hgb 8.5 L Hct 29.1 L MCV 92.4 MCH 27.0 MCHC 29.2 L RDW Std Deviation 59.5 H RDW Coeff of [place] 17.4 H Plt Count 338 MPV 10.8 Immature Gran % (Auto) 1.4 Neut % (Auto) 84.4 Lymph % (Auto) 4.8 [place] % (Auto) 9.2 Eos % (Auto) 0.0 Baso % (Auto) 0.2 Neut # (Auto) 23.79 H Lymph # (Auto) 1.34 [place] # (Auto) 2.58 H Eos # (Auto) 0.00 Baso # (Auto) 0.07 Immature Gran # (Auto) 0.39 H Absolute Nucleated RBC Nucleated RBC % (auto) Polychromasia 1+ Echinocytes 1+ ESR PT INR APTT PTT Ratio Fibrinogen ABG pH 7.28 L ABG pCO2 40 ABG pO2 97 H ABG HCO3 19 ABG O2 Saturation 99.0 H ABG Base Excess -7.5 Angelo Test Pos VBG pH VBG pCO2 VBG pO2 VBG HCO3 VBG O2 Saturation VBG Base Excess Oxygen Given 6L Sodium 139 Potassium 5.5 H Chloride 109 H Carbon Dioxide 19 L Anion Gap 11 BUN 43 H Creatinine 2.56 H Est Cr Clr Drug Dosing 17.2 Est GFR ( Amer) 19.4 Est GFR (Non-Af Amer) 16.7 BUN/Creatinine Ratio 16.8 Glucose 159 H POC Glucose Lactate Calcium 8.1 L Phosphorus Magnesium 1.3 L Total Bilirubin AST ALT Alkaline Phosphatase Troponin I High Sens 29.5 H C-Reactive Protein Total Protein Albumin Globulin Albumin/Globulin Ratio Lipase Procalcitonin Nasal Screen MRSA (PCR) Digoxin Anaplasma Smear See Comment Babesia Smear See Comment Lyme Disease IgG Ab Lyme Disease IgM Ab SARS-CoV-2, RNA, NAAT 02/09/22 02/09/22 02/09/22 02:48 03:00 05:42 WBC RBC Hgb Hct MCV MCH MCHC RDW Std Deviation RDW Coeff of [place] Plt Count MPV Immature Gran % (Auto) Neut % (Auto) Lymph % (Auto) [place] % (Auto) Eos % (Auto) Baso % (Auto) Neut # (Auto) Lymph # (Auto) [place] # (Auto) Eos # (Auto) Baso # (Auto) Immature Gran # (Auto) Absolute Nucleated RBC Nucleated RBC % (auto) Polychromasia Echinocytes ESR PT INR APTT PTT Ratio Fibrinogen ABG pH ABG pCO2 ABG pO2 ABG HCO3 ABG O2 Saturation ABG Base Excess Angel[place] Test VBG pH VBG pCO2 VBG pO2 VBG HCO3 VBG O2 Saturation VBG Base Excess Oxygen Given Sodium Potassium Chloride Carbon Dioxide Anion Gap BUN Creatinine Est Cr Clr Drug Dosing Est GFR ( Amer) Est GFR (Non-Af Amer) BUN/Creatinine Ratio Glucose POC Glucose 162 H Lactate 3.3 H* Calcium Phosphorus Magnesium Total Bilirubin AST ALT Alkaline Phosphatase Troponin I High Sens C-Reactive Protein Total Protein Albumin Globulin Albumin/Globulin Ratio Lipase Procalcitonin Nasal Screen MRSA (PCR) Negative Digoxin Anaplasma Smear Babesia Smear Lyme Disease IgG Ab Lyme Disease IgM Ab SARS-CoV-2, RNA, NAAT 02/09/22 02/09/22 02/09/22 05:45 05:45 05:45 WBC 27.79 H RBC 3.30 L Hgb 8.9 L Hct 30.0 L MCV 90.9 MCH 27.0 MCHC 29.7 L RDW Std Deviation 59.0 H RDW Coeff of [place] 17.4 H Plt Count 348 MPV 11.3 Immature Gran % (Auto) 1.3 Neut % (Auto) 84.3 Lymph % (Auto) 6.2 [place] % (Auto) 8.0 Eos % (Auto) 0.0 Baso % (Auto) 0.2 Neut # (Auto) 23.43 H Lymph # (Auto) 1.73 [place] # (Auto) 2.21 H Eos # (Auto) 0.00 Baso # (Auto) 0.06 Immature Gran # (Auto) 0.36 H Absolute Nucleated RBC 0.02 H Nucleated RBC % (auto) 0.1 Polychromasia Echinocytes ESR PT INR APTT PTT Ratio Fibrinogen ABG pH ABG pCO2 ABG pO2 ABG HCO3 ABG O2 Saturation ABG Base Excess [place] Test VBG pH VBG pCO2 VBG pO2 VBG HCO3 VBG O2 Saturation VBG Base Excess Oxygen Given Sodium 138 Potassium 6.0 H Chloride 107 Carbon Dioxide 21 Anion Gap 10 BUN 44 H Creatinine 2.53 H Est Cr Clr Drug Dosing 17.5 Est GFR ( Amer) 19.6 Est GFR (Non-Af Amer) 16.9 BUN/Creatinine Ratio 17.4 Glucose 161 H POC Glucose Lactate Calcium 8.2 L Phosphorus 4.9 Magnesium 1.8 Total Bilirubin 0.4 AST 47 H ALT 44 Alkaline Phosphatase 71 Troponin I High Sens 29.3 H C-Reactive Protein Total Protein 6.7 Albumin 3.8 Globulin 2.9 Albumin/Globulin Ratio 1.3 Lipase Procalcitonin Nasal Screen MRSA (PCR) Digoxin Anaplasma Smear Babesia Smear Lyme Disease IgG Ab Negative Lyme Disease IgM Ab Negative SARS-CoV-2, RNA, NAAT 02/09/22 02/09/22 02/09/22 07:26 08:16 09:20 WBC RBC Hgb Hct MCV MCH MCHC RDW Std Deviation RDW Coeff of [place] Plt Count MPV Immature Gran % (Auto) Neut % (Auto) Lymph % (Auto) [place] % (Auto) Eos % (Auto) Baso % (Auto) Neut # (Auto) Lymph # (Auto) [place] # (Auto) Eos # (Auto) Baso # (Auto) Immature Gran # (Auto) Absolute Nucleated RBC Nucleated RBC % (auto) Polychromasia Echinocytes ESR PT INR APTT PTT Ratio Fibrinogen ABG pH ABG pCO2 ABG pO2 ABG HCO3 ABG O2 Saturation ABG Base Excess [place] Test VBG pH VBG pCO2 VBG pO2 VBG HCO3 VBG O2 Saturation VBG Base Excess Oxygen Given Sodium Potassium Chloride Carbon Dioxide Anion Gap BUN Creatinine Est Cr Clr Drug Dosing Est GFR ( Amer) Est GFR (Non-Af Amer) BUN/Creatinine Ratio Glucose POC Glucose 160 H 152 H Lactate 3.4 H* Calcium Phosphorus Magnesium Total Bilirubin AST ALT Alkaline Phosphatase Troponin I High Sens C-Reactive Protein Total Protein Albumin Globulin Albumin/Globulin Ratio Lipase Procalcitonin Nasal Screen MRSA (PCR) Digoxin Anaplasma Smear Babesia Smear Lyme Disease IgG Ab Lyme Disease IgM Ab SARS-CoV-2, RNA, NAAT 02/09/22 02/09/22 02/09/22 10:49 10:49 10:49 WBC RBC Hgb Hct MCV MCH MCHC RDW Std Deviation RDW Coeff of [place] Plt Count MPV Immature Gran % (Auto) Neut % (Auto) Lymph % (Auto) [place] % (Auto) Eos % (Auto) Baso % (Auto) Neut # (Auto) Lymph # (Auto) [place] # (Auto) Eos # (Auto) Baso # (Auto) Immature Gran # (Auto) Absolute Nucleated RBC Nucleated RBC % (auto) Polychromasia Echinocytes ESR PT 13.3 H INR 1.3 H APTT 31.9 H PTT Ratio 1.2 Fibrinogen 400 ABG pH ABG pCO2 ABG pO2 ABG HCO3 ABG O2 Saturation ABG Base Excess Angelo Test VBG pH 7.23 L VBG pCO2 52 H VBG pO2 34 VBG HCO3 22 VBG O2 Saturation < 60.0 VBG Base Excess -6.2 Oxygen Given Sodium 139 Potassium 5.8 H Chloride 107 Carbon Dioxide 22 Anion Gap 10 BUN 45 H Creatinine 2.65 H Est Cr Clr Drug Dosing 16.7 Est GFR ( Amer) 18.6 Est GFR (Non-Af Amer) 16.0 BUN/Creatinine Ratio 17.0 Glucose 128 H POC Glucose Lactate Calcium 8.3 L Phosphorus Magnesium Total Bilirubin AST ALT Alkaline Phosphatase Troponin I High Sens C-Reactive Protein Total Protein Albumin Globulin Albumin/Globulin Ratio Lipase Procalcitonin Nasal Screen MRSA (PCR) Digoxin Anaplasma Smear Babesia Smear Lyme Disease IgG Ab Lyme Disease IgM Ab SARS-CoV-2, RNA, NAAT 02/09/22 11:16 WBC RBC Hgb Hct MCV MCH MCHC RDW Std Deviation RDW Coeff of [place] Plt Count MPV Immature Gran % (Auto) Neut % (Auto) Lymph % (Auto) [place] % (Auto) Eos % (Auto) Baso % (Auto) Neut # (Auto) Lymph # (Auto) [place] # (Auto) Eos # (Auto) Baso # (Auto) Immature Gran # (Auto) Absolute Nucleated RBC Nucleated RBC % (auto) Polychromasia Echinocytes ESR PT INR APTT PTT Ratio Fibrinogen ABG pH ABG pCO2 ABG pO2 ABG HCO3 ABG O2 Saturation ABG Base Excess [place] Test VBG pH VBG pCO2 VBG pO2 VBG HCO3 VBG O2 Saturation VBG Base Excess Oxygen Given Sodium Potassium Chloride Carbon Dioxide Anion Gap BUN Creatinine Est Cr Clr Drug Dosing Est GFR ( Amer) Est GFR (Non-Af Amer) BUN/Creatinine Ratio Glucose POC Glucose 119 H Lactate Calcium Phosphorus Magnesium Total Bilirubin AST ALT Alkaline Phosphatase Troponin I High Sens C-Reactive Protein Total Protein Albumin Globulin Albumin/Globulin Ratio Lipase Procalcitonin Nasal Screen MRSA (PCR) Digoxin Anaplasma Smear Babesia Smear Lyme Disease IgG Ab Lyme Disease IgM Ab SARS-CoV-2, RNA, NAAT Diagnostic Findings Echocardiogram performed 05/12/2021: Normal LV systolic function with ejection fraction of 55-60%. Mild LVH. Mild left atrial dilation. Mild aortic stenosis. Elevated right ventricular systolic pressure suggestive of pulmonary hypertension. Head CT did not demonstrate any acute intracranial process. Chest x-ray demonstrated cardiomegaly with pulmonary vascular congestion Abdominal CT obtained the time of admission suggested acute pancreatitis. Distended gallbladder. Left adrenal nodule. PG Care Time/CCT Total # of Minutes Spent Total Time Spent with Patient: Total time spent is greater than 50% in coordination of care (as documented) at patient's floor/unit and/or counseling patient: Coding Level of Care Code 61422 Initial Inpt Care Lvl 3 Diagnoses Symptomatic bradycardia R00.1 Digoxin toxicity T46.0X1A Encounter type: initial encounter Injury intent: accidental or unintentional Atrial fibrillation I48.91 (1) Digoxin toxicity Encounter type: initial encounter Injury intent: accidental or unintentional Qualified Code(s): T46.0X1A - Poisoning by cardiac-stimulant glycosides and drugs of similar action, accidental (unintentional), initial encounter
[2022-02-09 11:21] LABS: Calcium 8.3 mg/dl (8.5-10.1); Creatinine Clr Calc Pharmacy 16.7 ml/min; Est GFR (African American) 18.6 ml/min; Potassium 5.8 mmol/L (3.5-5.1)
[2022-02-09] MEDS ORDERED: PNEUMOCOCCAL POLYSACCHARIDES 25 MCG/0.5 ML VIAL/SYR IM ONE (12:00)
[2022-02-09 12:07] LABS: iSTAT Creatinine 2.2 mg/dl (0.6-1.3); iSTAT Hemoglobin 9.9 g/dl (12.0-16.0); iSTAT Ionized Calcium 1.2 mmol/l (1.12-1.32); iSTAT Potassium 5.9 mmol/L (3.3-5.0)
--- NOTE | 2022-02-09 15:20 | Pharmacy Report ---
Pharmacy Glycemic Short Note 2 - Date of Service February 09, 2022 - Glycemic Short BSG Results (Last 24 hours): 02/08/22 02/08/22 02/08/22 18:27 18:34 21:00 Glucose 186 H POC Glucose 122 H POC Glucose (other) 224 H 02/08/22 02/09/22 02/09/22 23:48 02:42 05:42 Glucose 145 H 159 H POC Glucose 162 H POC Glucose (other) 02/09/22 02/09/22 02/09/22 05:45 07:26 09:20 Glucose 161 H POC Glucose 160 H 152 H POC Glucose (other) 02/09/22 02/09/22 10:49 11:16 Glucose 128 H POC Glucose 119 H POC Glucose (other) OUTPATIENT ANTIDIABETIC REGIMEN: * Metformin 500mg PO BID * 7% 08/30/21 ASSESSMENT: * Type 2 diabetic admitted for symptomatic bradycardia, CHESTER, hyperkalemia * BSGs acceptable at this time with no insulin provision despite receipt of chronotropic support w/ dopamine * Given current BSGs, last A1c reflecting good control w/ metformin monotherapy and CHESTER - I feel it best to avoid use of basal insulin and provide only Novolog correction and prandial insulin coverage in low doses. PLAN FOR INPATIENT GLYCEMIC CONTROL: * Hold outpatient oral diabetes medications (metformin) * Basal insulin * none * Bolus insulin * NovoLog per scale ACHS or Q6hrs while NPO * Goal Range: Low 140 mg/dL - High 180 mg/dL * Correction Factor: 40 mg/dL/unit * Nutritional / Prandial insulin per carb ratio of 1 unit per 20 grams CHO consumed
--- NOTE | 2022-02-09 16:40 | XCELERA ---
[id number]
--- NOTE | 2022-02-09 17:46 | Billing Data ---
Date of Service February 09, 2022 Coding Level of Care Code 79109 Subseq Hosp Care Lvl 2
[2022-02-09] MEDS ORDERED: CEFEPIME 2,000 MG in SYRINGE 0 ML IV SCH (18:00)
[2022-02-09 18:18] LABS: Base Excess VBG -5.1 mEq/L; Basophils # (auto) 0.04 K/uL (0-0.2); Basophils % (auto) 0.2 %; Eosinophils # (auto) 0.01 K/uL (0-0.50); Eosinophils % (auto) 0.1 %; HCO3 VBG 22 mmol/L; Hematocrit (blood only) 26.3 % (34.1-44.9); Hemoglobin 7.9 g/dl (12.0-16.0); Immature Granulocytes # (auto) 0.11 K/uL (0.00-0.02); Immature Granulocytes % (auto) 0.6 %; Lymphocytes # (auto) 1.84 K/uL (1.2-3.4); Lymphocytes % (auto) 9.4 %; Mean Corpuscular Hemoglobin 27.1 pg (25.0-34.0); Mean Corpuscular Volume 90.4 fL (80.0-100.0); Mean Platelet Volume 10.9 fL (9.4-12.3); Monocytes # (auto) 1.55 K/uL (0.24-0.82); Monocytes % (auto) 7.9 %; Neutrophils # (auto) 16.02 K/uL (1.4-6.5); Neutrophils % (auto) 81.8 %; Oxygen Saturation VBG < 60.0 %; PCO2 VBG 48 mmHg (38-50); PO2 VBG 31 mmHg; Platelet Count 269 K/uL (130-400); RDW Coefficient of Variation 17.4 % (11.5-14.5); RDW Standard Deviation 57.4 fL (36.4-46.3); Red Blood Count 2.91 M/uL (3.93-5.22); White Blood Count 19.57 K/ul (4.8-10.8); pH VBG 7.27 (7.36-7.41)
[2022-02-09 18:36] LABS: BUN Creatinine Ratio 19.3 (10-20); Calcium 7.9 mg/dl (8.5-10.1); Creatinine Clr Calc Pharmacy 18.6 ml/min; Est GFR (African American) 21.1 ml/min; Est GFR (Non-African American) 18.2 ml/min; Potassium 5.3 mmol/L (3.5-5.1)
[2022-02-09 19:03] LABS: Echinocytes 1+; Hypochromasia Present; Polychromasia 1+
--- NOTE | 2022-02-10 04:13 | Billing Data ---
Date of Service February 10, 2022 Coding Level of Care Code Critical Care 1st - mins
[2022-02-10] MEDS: NORMOSOL-R 1,000 ML IV SCH (04:34)
[2022-02-10 06:42] LABS: Basophils # (auto) 0.05 K/uL (0-0.2); Basophils % (auto) 0.4 %; Eosinophils # (auto) 0.04 K/uL (0-0.50); Eosinophils % (auto) 0.3 %; Hematocrit (blood only) 25.6 % (34.1-44.9); Hemoglobin 7.7 g/dl (12.0-16.0); Immature Granulocytes # (auto) 0.09 K/uL (0.00-0.02); Immature Granulocytes % (auto) 0.6 %; Lymphocytes # (auto) 1.22 K/uL (1.2-3.4); Lymphocytes % (auto) 8.7 %; Mean Corpuscular Hgb Conc 30.1 g/dL (32.0-36.0); Mean Corpuscular Volume 89.8 fL (80.0-100.0); Mean Platelet Volume 11.1 fL (9.4-12.3); Monocytes % (auto) 7.8 %; Neutrophils # (auto) 11.59 K/uL (1.4-6.5); Neutrophils % (auto) 82.2 %; Platelet Count 262 K/uL (130-400); RDW Coefficient of Variation 17.4 % (11.5-14.5); RDW Standard Deviation 57.6 fL (36.4-46.3); Red Blood Count 2.85 M/uL (3.93-5.22); White Blood Count 14.09 K/ul (4.8-10.8)
[2022-02-10] MEDS: INSULIN ASPART PER UNIT SC SCH ×4 (06:44→23:00)
--- NOTE | 2022-02-10 07:11 | Critical Care Progress Note ---
Date of Service February 10, 2022 Assessment & Plan (1) Symptomatic bradycardia: (2) CHESTER (acute kidney injury): (3) Acute hypotension: (4) Acute hyperkalemia: (5) Digoxin toxicity: (6) COVID: (7) Diabetes mellitus: (8) Hyperlipidemia: (9) COPD (chronic obstructive pulmonary disease): (10) Hypoxia: (11) Weakness: (12) Sepsis: (13) Acute and chronic respiratory failure with hypoxia: Plan Reason Critically Ill: Coco is an 81 year old female presenting to the ICU w/ symptomatic bradycardia with hypotension requiring vasoactive medications. Neuro CAM ICU: Negative Cardiac Symptomatic bradycardia: -Patient with unknown ingestion quantity of Digoxin. Mildly elevated Digoxin level on entry to hospital. -Bradycardia with hyperkalemia in setting of mildly elevated Digoxin may point towards chronic digoxin toxicity. -Patient started on Digibind. -Repeat digoxin level 3.0 02/10 - spoke with pharmacy, digibind can interact with assay for digoxin level and detect both bound and free digoxin, par for the course it is elevated at this point. -Patient required epinephrine and then transitioned to dobutamine for low MAP. -Weaned off Dopamine, patient maintaining MAP, hemodynamically stable - stable for downgrade. Atrial fibrillation: -Has been in and out of sinus marizol and atrial fibrillation. -Holding Xarelto in setting of CHESTER. -Holding Digoxin and Metoprolol. HTN: Can consider anti-hypertensive such as restarting Losartan given HR still mildly bradycardic at times for home metoprolol. HLD: Continue statin. Respiratory Patient back at baseline 4L O2, procalcitonin 0.05. Continue monitoring, continue nebs. GI Carb consistent T2DM diet. Renal/Electrolytes CHESTER: -Likely pre-renal from hypotension. -Kidney function improving on fluids - 500mL output via Purewick overnight. Cont. Normosol 80ml/hr - can D/C if eating well. -Avoid nephrotoxins. Hyperkalemia: -Initial potassium 6, emesis with Kayexalate. -Likely related to Digoxin toxicity. -Trending down. Continue to monitor w/ BMP. Strict I&O's. Endo DM: -Hold home medications. SSI. -ICU hyperglycemia protocol Heme Hemoglobin trending down to 7.7, may have anemia chronically based on last admission 05/2021. Will try to look further into past workup with Dr. Garcia, may need records from their office. Continue to trend CBC. ID Patient remained afebrile, procal negative, blood cultures negative. Less likely infectious process, more likely dehydration in setting of recent COVID infection. Lines/IV Access Peripheral IV. D/C femoral CVC. DVT Prophylaxis Holding Xarelto in setting of CHESTER. Dispo: ICU, stable for downgrade. Admission and Anticipated Discharge Date Admission Date: February 08, 2022 Supervising Physician Co-Signing Physician Notes Dr. Miranda was resident physician during care of patient. I separately evaluated patient for choi portions of the history and the exam. I was present during the critical portion of medical decision making, and I discussed the case with the resident. I generally agree with the findings and plan. 500 mL of urine output, as the patient's creatinine has continued to downtrend I think it is reasonable to not place Adrian as there was significant technical difficulty in passing the catheter. We will continue with the pure wick. Off dopamine as of this morning. We will start diet, discontinue supplemental fluids creatinine improved lactate has resolved. Mild decrease in her H&H, will look into the chart to evaluate etiology of anemia and prior work-ups. Off antibiotics as of yesterday, remains afebrile and all vital signs and laboratory appear to be moving in relative correct direction. Stable for downgrade to [place]. Discontinue central venous catheter today. Subjective Patient seen at the bedside this morning feeling well. Denies any chest pain, shortness of breath, fevers, chills, nausea. She said she would like to eat but will wait at the discretion of the doctors to decide when. Review of Systems Constitutional: as per Subjective / HPI Physical Exam Constitutional: WD/WN, vitals as above Eyes: PERRL, conjunctivae normal, anicteric sclerae Respiratory: Mildly coarse expiratory rhonchi left upper lung field, clear elsewhere. Cardiovascular: II/ holosystolic murmur most prominent left upper sternal border, RRR, S1 and S2. Gastrointestinal (Abdomen): normal bowel sounds, soft, nontender, no hepatosplenomegaly Results & Data Results & Data ([facility]) Vital Signs (Past 12 Hours) Vital Signs Temp Pulse Resp BP Pulse Ox O2 Del Method O2 Flow Rate 02/10/22 06:01 37.0 C 61 11 L 175/52 H 94 02/10/22 05:31 36.9 C 71 23 129/54 L 94 02/10/22 05:00 36.8 C 63 20 174/60 H 95 02/10/22 04:30 36.8 C 65 16 158/70 H 96 02/10/22 04:01 36.8 C 65 21 164/85 H 97 02/10/22 03:30 36.8 C 61 21 148/54 H 97 02/10/22 03:00 36.8 C 60 20 147/51 H 97 02/10/22 02:30 36.9 C 61 20 148/53 H 96 02/10/22 02:00 36.9 C 62 21 159/49 H 98 02/10/22 01:31 36.9 C 63 18 172/70 H 97 02/10/22 01:00 36.9 C 61 19 97 02/10/22 00:36 36.9 C 62 21 175/54 H 96 02/10/22 00:01 36.9 C 61 21 118/80 98 02/09/22 23:31 36.8 C 62 23 153/47 H 96 02/09/22 23:01 36.8 C 64 18 161/57 H 96 02/09/22 22:30 36.8 C 63 22 163/77 H 95 02/09/22 22:01 36.7 C 62 21 100/82 95 02/09/22 21:30 36.7 C 62 23 157/72 H 94 02/09/22 21:00 36.7 C 61 21 157/63 H 96 02/09/22 20:30 36.7 C 63 25 H 159/47 H 94 02/09/22 20:00 36.7 C 62 22 140/76 94 02/09/22 19:30 36.7 C 62 24 145/51 H 93 02/09/22 19:30 Nasal Cannula 4 02/09/22 19:15 59 L 02/10/22 00:00 65 (1) Digoxin toxicity Encounter type: initial encounter Injury intent: accidental or unintentional Qualified Code(s): T46.0X1A - Poisoning by cardiac-stimulant glycosides and drugs of similar action, accidental (unintentional), initial encounter
[2022-02-10 07:16] LABS: RBC Morphology Unremarkable
[2022-02-10 07:21] LABS: BUN Creatinine Ratio 22.9 (10-20); Calcium 7.7 mg/dl (8.5-10.1); Creatinine Clr Calc Pharmacy 25.2 ml/min; Est GFR (African American) 30.7 ml/min; Est GFR (Non-African American) 26.5 ml/min; Magnesium 2.5 mg/dl (1.7-2.4); Phosphorus 3.6 mg/dl (2.5-4.9); Potassium 4.7 mmol/L (3.5-5.1)
[2022-02-10 07:25] LABS: Estimated Average Glucose 151 mg/dl; Hemoglobin A1C 6.9 % (4.5-5.6)
[2022-02-10] MEDS: DOPamine / D5W 400 MG/250 ML BAG IV SCH ×2 (07:47→09:43)
--- NOTE | 2022-02-10 09:58 | Billing Data ---
Date of Service February 10, 2022 Coding Level of Care Code 83762 Subseq Hosp Care Lvl 3
--- NOTE | 2022-02-10 10:11 | Hospitalist Progress Note ---
Date of Service February 10, 2022 Assessment & Plan (1) Symptomatic bradycardia: Plan: 81 year old female w/ PMHx of HTN, HLD, DM, COPD, AF on Xarelto, and recent covid (s/p molupiravir) diagnosed ~1 wk ago presents w/ sepsis, worsened hypoxia, CHESTER, and severe bradycardia. - Suspect bradycardia is multifactorial- triggered by acute illness in elderly patient with several comorbidities and polypharmacy -May represent developing sick sinus syndrome as well - Cardiology consulted 02/09 -Pacemaker not urgently required and pt likely does not meet criteria currently -Will need to monitor her HR while off rate control medications before evaluation for potential pacemaker - Treatment initiated for digoxin toxicity 02/09 -Digibind administered -Recheck digoxin level 1.0, increased to 3 today- possible benign fluctuation vs element of chronic digoxin toxicity - Successfully weaned off dopamine on 02/10, HR stable in 60s-70s - Continue holding home diltiazem, digoxin, metoprolol for now (2) Sepsis: Plan: - w/ elevated lactate 4.0, wbc 13.8, cefepime started on admission - MRSA nares negative, procalcitonin negative, BCx and UCx pending - per CT abd, acute pancreatitis findings seen and cannot r/o gallbladder pathology, lipase wnl - Lactate downtrending to 2, fibrinogen wnl, WBC increase to 28 - Cefepime discontinued 02/09 - WBC trending downward 20 to 14 today - Trend CBC (3) Atrial fibrillation: Plan: - AF w/ slow response, appears to vacillate between sinus bradycardia and atrial fibrillation - Held home Xarelto on admission given CHESTER - Held home metoprolol, diltiazem, and digoxin on admission given bradycardia - Given improvement in CHESTER, may resume Xarelto if Hgb stable - Currently rate controlled, continue holding home medications (4) Anemia: Plan: - Hgb 8.9 to 7.9 to 7.7 over past day - Recheck H+H later today -Pursue workup including FOBT, iron studies, etc if continuing to decline -If Hgb remains stable, defer workup to outpatient - Trend CBC (5) Acute and chronic respiratory failure with hypoxia: Plan: - home 4L O2 - exacerbation 2/2 hypervolemia vs pneumonia vs covid vs copd exacerbation - cxr w/ congestion, CT demonstrating cardiomegaly with b/l pleural effusions - Currently saturating well on home O2 4L NC (6) CHESTER (acute kidney injury): Plan: - may be 2/2 covid, molupiravir, sepsis - Cr downtrending from 2.65 to 1.75 - Pure wick catheter in place - follow bmp. avoid nephrotoxic agents. renally dose meds (7) COPD (chronic obstructive pulmonary disease): Plan: - see above (8) Digoxin toxicity: Plan: - digoxin level 2.2, slightly supratherapeutic - digoxin rechecks at 1.0 and most recent 3.0 - suspect there may be an element of chronic digoxin toxicity present vs possible benign fluctuation (9) Acute hyperkalemia: Plan: - K 6 on admission, given IV dextrose, IV insulin 10u, and albuterol - K downtrending, currently resolved at 4.7 - Continue to trend BMP (10) Acute hypotension: Plan: - resolved - will resume home BP medications as HR allows- begin with losartan 25 mg daily (11) Weakness: Plan: 2/2 bradycardia vs covid vs other infection vs sepsis (12) Diabetes mellitus: Plan: - last a1c 7.0. hold home regimen. pharmacy glycemic consult. (13) COVID: Plan: - covid isolation precautions - Negative RNA test on admission but positive home test 10 days prior Plan Diet: carb count ppx: Holding home Xarelto code: full dispo: Downgraded from ICU to telemetry today Admission and Anticipated Discharge Date Admission Date: February 08, 2022 Supervising Physician Co-Signing Physician Notes I personally examined the patient and verified all choi points of history and exam, discussed case, and agree with decision making with Dr Salgado. Feeling better still. When discussing the potential of polypharmacy she notes that she tries to put her pills in a pill counter at home but she does live alone and she thinks it might of been easy for her to have gotten confused on things. Vitals noted, in general she is awake and alert hard of hearing but oriented this evening.. No distress. HEENT normocephalic atraumatic mucous membranes moist. Breathing unlabored no accessory muscle use good effort. Skin shows no rashes no pallor or icterus. Neuro without focal deficits. Altered mental statusdeliriumquestion being whether it was related to bradycardia/medication side effect, or related to infectious process. Either way is improving. stable for PCU Bradycardiaappears predominantly to be med side effectheart rates improving, hemodynamically stable.rates acceptable now. Leukocytosisquite significant but now improving. no clear s/s infection - safe/stable off abx. Subjective No acute events overnight. Pt feels well, denies dyspnea or cough. No chest pain, fever, chills, palpitations or lightheadedness. Interview slightly limited by pt's hearing impairment. Review of Systems Review of Systems: Per subjective Physical Exam Constitutional: WD/WN, vitals as above Eyes: PERRL, conjunctivae normal, anicteric sclerae Respiratory: Mildly coarse breath sounds diffusely, no increased work of breathing Cardiovascular: RRR, normal S1/S2, systolic murmur heard over LUSB Gastrointestinal (Abdomen): normal bowel sounds, soft, nontender, no hepatosplenomegaly Results & Data Results & Data ([facility]) Vital Signs (Past 12 Hours) Vital Signs Temp Pulse Resp BP Pulse Ox O2 Del Method O2 Flow Rate 02/10/22 07:34 Nasal Cannula 4 02/10/22 07:32 61 02/10/22 06:01 37.0 C 61 11 L 175/52 H 94 02/10/22 05:31 36.9 C 71 23 129/54 L 94 02/10/22 05:00 36.8 C 63 20 174/60 H 95 02/10/22 04:30 36.8 C 65 16 158/70 H 96 02/10/22 04:01 36.8 C 65 21 164/85 H 97 02/10/22 03:30 36.8 C 61 21 148/54 H 97 02/10/22 03:00 36.8 C 60 20 147/51 H 97 02/10/22 02:30 36.9 C 61 20 148/53 H 96 02/10/22 02:00 36.9 C 62 21 159/49 H 98 02/10/22 01:31 36.9 C 63 18 172/70 H 97 02/10/22 01:00 36.9 C 61 19 97 02/10/22 00:36 36.9 C 62 21 175/54 H 96 02/10/22 00:01 36.9 C 61 21 118/80 98 02/09/22 23:31 36.8 C 62 23 153/47 H 96 02/09/22 23:01 36.8 C 64 18 161/57 H 96 02/09/22 22:30 36.8 C 63 22 163/77 H 95 02/10/22 00:00 65 Resident Activity Tracking Resident Involvement: Resident Care Provided Care Provided: Adult Hospital Medicine (1) Digoxin toxicity Encounter type: initial encounter Injury intent: accidental or unintentional Qualified Code(s): T46.0X1A - Poisoning by cardiac-stimulant glycosides and drugs of similar action, accidental (unintentional), initial encounter (2) Anemia Anemia type: unspecified type Qualified Code(s): D64.9 - Anemia, unspecified
[2022-02-10] MEDS: FAMOTIDINE 20 MG TAB PO SCH (10:14)
[2022-02-10] MEDS: CETIRIZINE HCL 10 MG TABLET PO SCH (10:14)
[2022-02-10] MEDS: ATORVASTATIN 40 MG TAB PO SCH (10:14)
[2022-02-10] MEDS: FLUTICASONE/VILANTEROL 200/25MCG 14 PUFFS/INHALER INH SCH (10:14)
[2022-02-10] MEDS: FLUoxetine HCL 20 MG CAP PO SCH (10:14)
[2022-02-10 14:26] LABS: Hematocrit (blood only) 25.9 % (34.1-44.9); Hemoglobin 7.8 g/dl (12.0-16.0)
--- NOTE | 2022-02-10 16:38 | Cardiology Progress Note ---
Date of Service February 10, 2022 Assessment & Plan (1) Symptomatic bradycardia: (2) Digoxin toxicity: (3) Atrial fibrillation: Plan 1. Bradycardia: Likely related to a medication overdose or possibly digoxin toxicity exclusively. Her heart rhythm has returned to normal. It is sinus with a normal rate. She did receive Digibind yesterday. Other medications are currently being held. Clinically much improved. Blood pressure also normal. 2. Atrial fibrillation: While the initial assumption was that her underlying rhythm is atrial fibrillation, this could have been severe sinus node dysfunction or atrial asystole in the setting of digoxin toxicity. Currently she is in a sinus rhythm at a normal rate. We can monitor her heart rates over the next day or 2 and determine if any rate control agents are necessary. I do not think we would reinitiate digoxin in any event. Systemic anticoagulation can be re-initiated at the discretion of the primary service. 3. Digoxin toxicity: Very possibly the etiology all of her symptoms, hypotension and conduction issues. Improved. Admission and Anticipated Discharge Date Admission Date: February 08, 2022 Subjective The patient was not personally interviewed or examined today. Information was obtained from the primary service and nursing service. Results & Data ([facility]) Vital Signs (Past 12 Hours) Vital Signs Temp Pulse Resp BP Pulse Ox O2 Del Method O2 Flow Rate 02/10/22 13:00 74 20 95 02/10/22 12:59 74 28 H 95 02/10/22 12:59 37 C 188/61 H 95 Nasal Cannula 4 02/10/22 12:48 72 18 95 02/10/22 12:30 188/66 H 02/10/22 12:30 73 22 95 02/10/22 12:01 171/56 H 02/10/22 12:01 79 21 94 02/10/22 12:00 78 27 H 94 02/10/22 11:57 79 24 91 02/10/22 11:57 170/65 H 02/10/22 11:30 83 22 91 02/10/22 11:00 160/97 H 02/10/22 11:00 37.4 C 77 24 92 02/10/22 10:30 179/56 H 02/10/22 10:30 37.3 C 80 28 H 90 02/10/22 10:00 37.2 C 66 22 98 02/10/22 10:00 177/53 H 02/10/22 09:30 37.2 C 68 22 98 02/10/22 09:00 37.1 C 68 22 99 02/10/22 09:00 169/58 H 02/10/22 08:31 37.1 C 66 20 98 02/10/22 08:00 37.1 C 66 19 98 02/10/22 08:00 125/104 H 02/10/22 07:30 168/58 H 02/10/22 07:30 37.1 C 66 22 97 02/10/22 07:00 37.1 C 68 18 95 02/10/22 07:00 162/49 H 02/10/22 06:30 163/67 H 02/10/22 06:30 37.1 C 67 21 95 02/10/22 07:34 Nasal Cannula 4 02/10/22 07:32 61 02/10/22 06:01 37.0 C 61 11 L 175/52 H 94 02/10/22 05:31 36.9 C 71 23 129/54 L 94 02/10/22 05:00 36.8 C 63 20 174/60 H 95 Laboratory Results Abnormal Lab Results 02/09/22 02/09/22 02/09/22 18:06 18:06 18:06 WBC 19.57 H RBC 2.91 L Hgb 7.9 L Hct 26.3 L MCV 90.4 MCH 27.1 MCHC 30.0 L RDW Std Deviation 57.4 H RDW Coeff of Ablbina 17.4 H Plt Count 269 MPV 10.9 Immature Gran % (Auto) 0.6 Neut % (Auto) 81.8 Lymph % (Auto) 9.4 Marion % (Auto) 7.9 Eos % (Auto) 0.1 Baso % (Auto) 0.2 Neut # (Auto) 16.02 H Lymph # (Auto) 1.84 Marion # (Auto) 1.55 H Eos # (Auto) 0.01 Baso # (Auto) 0.04 Immature Gran # (Auto) 0.11 H RBC Morphology Polychromasia 1+ Hypochromasia Present Echinocytes 1+ VBG pH 7.27 L VBG pCO2 48 VBG pO2 31 VBG HCO3 22 VBG O2 Saturation < 60.0 VBG Base Excess -5.1 Sodium Potassium Chloride Carbon Dioxide Anion Gap BUN Creatinine Est Cr Clr Drug Dosing Est GFR ( Amer) Est GFR (Non-Af Amer) BUN/Creatinine Ratio Glucose POC Glucose Estimat Average Glucose Hemoglobin A1c Lactate 1.4 Calcium Phosphorus Magnesium Digoxin 02/09/22 02/09/22 02/09/22 18:06 18:20 23:16 WBC RBC Hgb Hct MCV MCH MCHC RDW Std Deviation RDW Coeff of [place] Plt Count MPV Immature Gran % (Auto) Neut % (Auto) Lymph % (Auto) Marion % (Auto) Eos % (Auto) Baso % (Auto) Neut # (Auto) Lymph # (Auto) Marion # (Auto) Eos # (Auto) Baso # (Auto) Immature Gran # (Auto) RBC Morphology Polychromasia Hypochromasia Echinocytes VBG pH VBG pCO2 VBG pO2 VBG HCO3 VBG O2 Saturation VBG Base Excess Sodium 137 Potassium 5.3 H Chloride 106 Carbon Dioxide 22 Anion Gap 9 BUN 46 H Creatinine 2.38 H Est Cr Clr Drug Dosing 18.6 Est GFR ( Amer) 21.1 Est GFR (Non-Af Amer) 18.2 BUN/Creatinine Ratio 19.3 Glucose 98 POC Glucose 106 H 122 H Estimat Average Glucose Hemoglobin A1c Lactate Calcium 7.9 L Phosphorus Magnesium Digoxin 02/10/22 02/10/22 02/10/22 05:51 06:12 06:12 WBC 14.09 H RBC 2.85 L Hgb 7.7 L Hct 25.6 L MCV 89.8 MCH 27.0 MCHC 30.1 L RDW Std Deviation 57.6 H RDW Coeff of [place] 17.4 H Plt Count 262 MPV 11.1 Immature Gran % (Auto) 0.6 Neut % (Auto) 82.2 Lymph % (Auto) 8.7 Marion % (Auto) 7.8 Eos % (Auto) 0.3 Baso % (Auto) 0.4 Neut # (Auto) 11.59 H Lymph # (Auto) 1.22 Marion # (Auto) 1.10 H Eos # (Auto) 0.04 Baso # (Auto) 0.05 Immature Gran # (Auto) 0.09 H RBC Morphology Unremarkable Polychromasia Hypochromasia Echinocytes VBG pH VBG pCO2 VBG pO2 VBG HCO3 VBG O2 Saturation VBG Base Excess Sodium 138 Potassium 4.7 Chloride 105 Carbon Dioxide 24 Anion Gap 9 BUN 40 H Creatinine 1.75 H D Est Cr Clr Drug Dosing 25.2 Est GFR ( Amer) 30.7 Est GFR (Non-Af Amer) 26.5 BUN/Creatinine Ratio 22.9 H Glucose 102 H POC Glucose 107 H Estimat Average Glucose Hemoglobin A1c Lactate Calcium 7.7 L Phosphorus 3.6 D Magnesium 2.5 H Digoxin 02/10/22 02/10/22 02/10/22 06:12 10:07 10:13 WBC RBC Hgb Hct MCV MCH MCHC RDW Std Deviation RDW Coeff of [place] Plt Count MPV Immature Gran % (Auto) Neut % (Auto) Lymph % (Auto) Marion % (Auto) Eos % (Auto) Baso % (Auto) Neut # (Auto) Lymph # (Auto) Marion # (Auto) Eos # (Auto) Baso # (Auto) Immature Gran # (Auto) RBC Morphology Polychromasia Hypochromasia Echinocytes VBG pH VBG pCO2 VBG pO2 VBG HCO3 VBG O2 Saturation VBG Base Excess Sodium Potassium Chloride Carbon Dioxide Anion Gap BUN Creatinine Est Cr Clr Drug Dosing Est GFR ( Amer) Est GFR (Non-Af Amer) BUN/Creatinine Ratio Glucose POC Glucose 103 H Estimat Average Glucose 151 Hemoglobin A1c 6.9 H Lactate Calcium Phosphorus Magnesium Digoxin 3.0 H* 02/10/22 14:15 WBC RBC Hgb 7.8 L Hct 25.9 L MCV MCH MCHC RDW Std Deviation RDW Coeff of [place] Plt Count MPV Immature Gran % (Auto) Neut % (Auto) Lymph % (Auto) Marion % (Auto) Eos % (Auto) Baso % (Auto) Neut # (Auto) Lymph # (Auto) Marion # (Auto) Eos # (Auto) Baso # (Auto) Immature Gran # (Auto) RBC Morphology Polychromasia Hypochromasia Echinocytes VBG pH VBG pCO2 VBG pO2 VBG HCO3 VBG O2 Saturation VBG Base Excess Sodium Potassium Chloride Carbon Dioxide Anion Gap BUN Creatinine Est Cr Clr Drug Dosing Est GFR ( Amer) Est GFR (Non-Af Amer) BUN/Creatinine Ratio Glucose POC Glucose Estimat Average Glucose Hemoglobin A1c Lactate Calcium Phosphorus Magnesium Digoxin Diagnostic Findings Echocardiogram performed 05/12/2021: Normal LV systolic function with ejection fraction of 55-60%. Mild LVH. Mild left atrial dilation. Mild aortic stenosis. Elevated right ventricular systolic pressure suggestive of pulmonary hypertension. Head CT did not demonstrate any acute intracranial process. Chest x-ray demonstrated cardiomegaly with pulmonary vascular congestion Abdominal CT obtained the time of admission suggested acute pancreatitis. Distended gallbladder. Left adrenal nodule. (1) Digoxin toxicity Encounter type: initial encounter Injury intent: accidental or unintentional Qualified Code(s): T46.0X1A - Poisoning by cardiac-stimulant glycosides and drugs of similar action, accidental (unintentional), initial encounter
--- NOTE | 2022-02-10 19:14 | Billing Data ---
Date of Service February 10, 2022 Coding Level of Care Code 50899 Subseq Hosp Care Lvl 3
[2022-02-10] MEDS ORDERED: ALBUT/IPRATROP 3MG/0.5MG NEB 3 ML VIAL NEB STA (21:41)
[2022-02-10] MEDS ORDERED: ALBUT/IPRATROP 3MG/0.5MG NEB 3 ML VIAL ONE (22:04)
[2022-02-11] MEDS ORDERED: METOPROLOL TARTRATE 1 MG/ML VIAL IV STA (00:53)
[2022-02-11] MEDS ORDERED: FUROSEMIDE INJ 20 MG/2 ML VIAL IV ONE (03:00)
[2022-02-11] MEDS: ALBUT/IPRATROP 3MG/0.5MG NEB 3 ML VIAL NEB PRN ×2 (03:07→20:39)
--- NOTE | 2022-02-11 07:30 | XRay Report ---
SINGLE VIEW CHEST CLINICAL HISTORY: Dyspnea. Crackles on physical examination. FINDINGS: An AP, portable, supine chest radiograph is compared to study dated 02/08/2022. The examinati on is degraded by portable technique and apical lordotic positioning. The heart is enlarged noting a therosclerotic calcification of the thoracic aorta. Pulmonary vascular congestion persist. Small pleu ral effusions are noted with bibasilar atelectasis. No pneumothorax is seen. A calcified granuloma is suggested in the right lung base. The skeletal structures are osteopenic. The bony thorax is grossly intact. IMPRESSION: 1. Cardiomegaly with persistent pulmonary vascular congestion. 2. Small pleural effusions. ACT 112: Negative or not required by law. Electronically signed by: Ab Farmer M.D. 02/11/2022 7:28 AM
[2022-02-11 08:34] LABS: Basophils # (auto) 0.05 K/uL (0-0.2); Basophils % (auto) 0.4 %; Eosinophils # (auto) 0.04 K/uL (0-0.50); Eosinophils % (auto) 0.3 %; Hematocrit (blood only) 23.2 % (34.1-44.9); Hemoglobin 7.2 g/dl (12.0-16.0); Immature Granulocytes # (auto) 0.07 K/uL (0.00-0.02); Immature Granulocytes % (auto) 0.5 %; Lymphocytes # (auto) 1.71 K/uL (1.2-3.4); Lymphocytes % (auto) 12.9 %; Mean Corpuscular Volume 86.9 fL (80.0-100.0); Mean Platelet Volume 11.4 fL (9.4-12.3); Monocytes # (auto) 1.03 K/uL (0.24-0.82); Monocytes % (auto) 7.8 %; Neutrophils # (auto) 10.34 K/uL (1.4-6.5); Neutrophils % (auto) 78.1 %; Platelet Count 270 K/uL (130-400); RDW Coefficient of Variation 17.6 % (11.5-14.5); RDW Standard Deviation 55.8 fL (36.4-46.3); Red Blood Count 2.67 M/uL (3.93-5.22); White Blood Count 13.24 K/ul (4.8-10.8)
[2022-02-11 08:50] LABS: RBC Morphology Unremarkable
[2022-02-11] MEDS: FLUTICASONE/VILANTEROL 200/25MCG 14 PUFFS/INHALER INH SCH (09:02)
[2022-02-11 09:07] LABS: BUN Creatinine Ratio 24.2 (10-20); Creatinine Clr Calc Pharmacy 35.6 ml/min; Est GFR (African American) 46.5 ml/min; Est GFR (Non-African American) 40.1 ml/min; Magnesium 2.1 mg/dl (1.7-2.4); Phosphorus 2.3 mg/dl (2.5-4.9); Potassium 4.4 mmol/L (3.5-5.1)
[2022-02-11] MEDS: FLUoxetine HCL 20 MG CAP PO SCH (09:07)
[2022-02-11] MEDS: CETIRIZINE HCL 10 MG TABLET PO SCH (09:07)
[2022-02-11] MEDS: FAMOTIDINE 20 MG TAB PO SCH (09:07)
[2022-02-11] MEDS: ATORVASTATIN 40 MG TAB PO SCH (09:07)
[2022-02-11] MEDS: LOSARTAN POTASSIUM 25 MG TAB PO SCH (09:07)
[2022-02-11] MEDS: INSULIN ASPART PER UNIT SC SCH ×4 (09:31→20:29)
--- NOTE | 2022-02-11 09:33 | Hospitalist Progress Note ---
Date of Service February 11, 2022 Assessment & Plan (1) Acute and chronic respiratory failure with hypoxia: Plan: - home 4L O2 - Likely due to recent COVID infection in elderly patient - Admission cxr w/ congestion, CT demonstrating cardiomegaly with b/l pleural effusions - Repeat CXR on 02/11 with similar findings - Currently saturating well on home O2 4L NC - Suspect some mild fluid overload- continue Lasix 20 mg PO daily - Treat supportively with pulmonary toilet- incentive spirometry, flutter valve, chest PT, albuterol PRN (2) Symptomatic bradycardia: Plan: 81 year old female w/ PMHx of HTN, HLD, DM, COPD, AF on Xarelto, and recent covid (s/p molupiravir) diagnosed ~1 wk ago presents w/ sepsis, worsened hypoxia, CHESTER, and severe bradycardia. - Suspect bradycardia is multifactorial- triggered by acute illness in elderly patient with several comorbidities and polypharmacy -May represent developing sick sinus syndrome as well - Cardiology consulted 02/09 -Pacemaker not urgently required and pt likely does not meet criteria currently -Will need to monitor her HR while off rate control medications before evaluation for potential pacemaker - Treatment initiated for digoxin toxicity 02/09 -Digibind administered -Recheck digoxin level 1.0, increased to 3 today- possible benign fluctuation vs element of chronic digoxin toxicity - Successfully weaned off dopamine on 02/10, HR stable in 60s-70s - Continue holding home diltiazem, digoxin, metoprolol for now -Will resume medications as HR continues to remain stable/increase (3) Sepsis: Plan: - w/ elevated lactate 4.0, wbc 13.8, cefepime started on admission - MRSA nares negative, procalcitonin negative, BCx and UCx pending - per CT abd, acute pancreatitis findings seen and cannot r/o gallbladder pathology, lipase wnl - Lactate downtrending to 2, fibrinogen wnl, WBC increase to 28 - Cefepime discontinued 02/09 - WBC trending downward 14 to 13 today - Trend CBC (4) Atrial fibrillation: Plan: - AF w/ slow response, appears to vacillate between sinus bradycardia and atrial fibrillation - Held home Xarelto on admission given CHESTER - Held home metoprolol, diltiazem, and digoxin on admission given bradycardia - Given improvement in CHESTER, will resume Xarelto once Hgb stable - Currently rate controlled, continue holding home medications (5) Anemia: Plan: - Hgb 8.9 to 7.9 to 7.7 over past day - Hgb 7.7 to 7.2 today - FOBT, reticulocyte count, iron studies ordered - Recheck H+H in afternoon (6) CHESTER (acute kidney injury): Plan: - may be 2/2 covid, molupiravir, sepsis - Cr downtrending, currently 1.24 - Pure wick catheter in place - follow bmp. avoid nephrotoxic agents. renally dose meds (7) COPD (chronic obstructive pulmonary disease): Plan: - see above (8) Digoxin toxicity: Plan: - digoxin level 2.2, slightly supratherapeutic - digoxin rechecks at 1.0 and most recent 3.0 on 02/11 - suspect there may be an element of chronic digoxin toxicity present vs possible benign fluctuation (9) Acute hyperkalemia: Plan: - K 6 on admission, given IV dextrose, IV insulin 10u, and albuterol - K downtrending, currently resolved at 4.4 - Continue to trend BMP (10) Acute hypotension: Plan: - resolved - Resume home BP medications as HR allows - Continue losartan 25 mg daily (11) Weakness: Plan: 2/2 bradycardia vs covid vs other infection vs sepsis (12) Diabetes mellitus: Plan: - last a1c 7.0. hold home regimen. pharmacy glycemic consult. (13) COVID: Plan: - covid isolation precautions - Negative RNA test on admission but positive home test 10 days prior Plan Diet: carb count ppx: Holding home Xarelto code: full dispo: Telemetry Admission and Anticipated Discharge Date Admission Date: February 08, 2022 Supervising Physician Co-Signing Physician Notes I personally examined the patient and verified all choi points of history and exam, discussed case, and agree with decision making with Dr Salgado. feeling better overall. awaiting PT/OT. no new complaints Vitals noted, in general she is awake and alert hard of hearing but oriented this evening.. No distress. HEENT normocephalic atraumatic mucous membranes moist. Breathing unlabored no accessory muscle use good effort. Skin shows no rashes no pallor or icterus. Neuro without focal deficits. Altered mental statusdeliriumquestion being whether it was related to bradycardia/medication side effect, or related to infectious process. Either way is improved ed Bradycardiaappears predominantly to be med side effectheart rates improving, hemodynamically stable.rates acceptable now. - continue to follow Leukocytosisquite significant but now improving. no clear s/s infection - safe/stable off abx. anemia - no overt s/s blood loss. follw up further, w/u further Subjective Overnight pt apparently had dyspnea with labored breathing which caused her O2 to increase from 4L NC to 5L. Briefly become hypoxic to 75% while back on 4L NC laying in bed, received nebulizer treatment. HR remained stable. SBP elevated to 190/70, received metoprolol 5 mg IV. Pt felt short of breath again around 3 AM, evaluation revealed concern for potential fluid overload in lungs- CXR ordered and pt given Lasix 10 mg. On evaluation, pt notes her breathing has improved from overnight but still reports some mild dyspnea. Denies chest pain or any other acute complaints. Review of Systems Review of Systems: Per subjective Physical Exam Constitutional: WD/WN, vitals as above Eyes: PERRL, conjunctivae normal, anicteric sclerae Respiratory: Mild conversational dyspnea, coarse breath sounds diffusely, no increased work of breathing Cardiovascular: RRR, normal S1/S2, systolic murmur heard over LUSB Gastrointestinal (Abdomen): normal bowel sounds, soft, nontender, no hepatosplenomegaly Results & Data Results & Data ([facility]) Vital Signs (Past 12 Hours) Vital Signs Temp Pulse Pulse Resp BP BP Pulse Ox 02/11/22 08:56 36.2 C L 82 14 163/60 H 97 02/11/22 07:09 76 02/11/22 04:00 93 H 20 151/84 H 95 02/11/22 03:07 93 H 22 96 02/11/22 03:02 93 H 22 159/61 H 94 02/11/22 02:26 36.8 C 80 20 171/80 H 97 02/10/22 22:25 87 02/10/22 23:01 36.8 C 93 H 26 H 189/68 H 93 02/10/22 22:12 87 22 96 O2 Del Method O2 Flow Rate 02/11/22 08:56 Nasal Cannula 5 02/11/22 07:09 02/11/22 04:00 Nasal Cannula 4 02/11/22 03:07 Nasal Cannula 5 02/11/22 03:02 02/11/22 02:26 Nasal Cannula 5 02/10/22 22:25 02/10/22 23:01 Nasal Cannula 5 02/10/22 22:12 Nasal Cannula 5 Resident Activity Tracking Resident Involvement: Resident Care Provided Care Provided: Adult Hospital Medicine (1) Digoxin toxicity Encounter type: initial encounter Injury intent: accidental or unintentional Qualified Code(s): T46.0X1A - Poisoning by cardiac-stimulant glycosides and drugs of similar action, accidental (unintentional), initial encounter (2) Anemia Anemia type: unspecified type Qualified Code(s): D64.9 - Anemia, unspecified
--- NOTE | 2022-02-11 09:43 | Pharmacy Report ---
Pharmacy Glycemic Short Note 2 - Date of Service February 11, 2022 - Glycemic Short BSG Results (Last 24 hours): 02/10/22 02/10/22 02/10/22 10:13 16:35 22:39 Glucose POC Glucose 103 H 102 H 114 H 02/11/22 02/11/22 07:44 08:00 Glucose 106 H POC Glucose 118 H OUTPATIENT ANTIDIABETIC REGIMEN: * Metformin 500mg PO BID * 7% 08/30/21 ASSESSMENT: 02/11 * Patient received only 1 unit of insulin yesterday, BSGs stable * No changes today 02/09 * Type 2 diabetic admitted for symptomatic bradycardia, CHESTER, hyperkalemia * BSGs acceptable at this time with no insulin provision despite receipt of chronotropic support w/ dopamine * Given current BSGs, last A1c reflecting good control w/ metformin monotherapy and CHESTER - I feel it best to avoid use of basal insulin and provide only Novolog correction and prandial insulin coverage in low doses. PLAN FOR INPATIENT GLYCEMIC CONTROL: * Hold outpatient oral diabetes medications (metformin) * Basal insulin * none * Bolus insulin * NovoLog per scale ACHS or Q6hrs while NPO * Goal Range: Low 140 mg/dL - High 180 mg/dL * Correction Factor: 40 mg/dL/unit * Nutritional / Prandial insulin per carb ratio of 1 unit per 20 grams CHO consumed
[2022-02-11 11:10] LABS: Hematocrit (blood only) 23.5 % (34.1-44.9); Hemoglobin 7.2 g/dl (12.0-16.0)
[2022-02-11] MEDS ORDERED: ALBUTEROL HFA 8 GM INHALER INH PRN (11:57)
[2022-02-11 12:30] LABS: Reticulocyte % 2.4 % (0.5-2.0); Reticulocytes # 0.06 10^6/uL (0.02-0.10)
[2022-02-11 13:39] LABS: Ferritin 72.4 ng/ml (8-388)
--- NOTE | 2022-02-11 14:57 | Cardiology Progress Note ---
Date of Service February 11, 2022 Assessment & Plan (1) Symptomatic bradycardia: (2) Digoxin toxicity: (3) Atrial fibrillation: Plan 1. Bradycardia: Resolved. In normal sinus rhythm and normal rate. Likely related to her medications. Possibly digitoxicity given her response to Dig ibind. Hemodynamically doing well. Losartan re-initiated. 2. Atrial fibrillation: When her condition is stable she can be re-initiated on anticoagulation. Once her renal function is stable she can be reached initiated on Xarelto. 20 mg daily if her GFR is greater than 50. 15 mg daily if less than 50. Alternatively, she could be initiated on Eliquis at full dose 5 mg twice daily. With respect to rate control medications. Current heart rates appear normal. With activity she may have higher heart rates. In that setting, I would advocate re-initiation of metoprolol at a lower dose, possibly 25 mg twice daily. This can be titrated upwards as needed. I think I would avoid digoxin altogether. 3. Digoxin toxicity: Very possibly the etiology all of her symptoms, hypotension and conduction issues. Resolved I will be away from the hospital starting tomorrow morning. For additional questions regarding her care medications please contact the on-call [facility] dielectric tester. Admission and Anticipated Discharge Date Admission Date: February 08, 2022 Subjective The patient was not seen in person today due to ongoing isolation procedures. However, I did review her chart and telemetry. Results & Data ([facility]) Vital Signs (Past 12 Hours) Vital Signs Temp Pulse Pulse Resp BP BP Pulse Ox 02/11/22 09:34 02/11/22 08:56 36.2 C L 82 14 163/60 H 97 02/11/22 07:09 76 02/11/22 04:00 93 H 20 151/84 H 95 02/11/22 03:07 93 H 22 96 02/11/22 03:02 93 H 22 159/61 H 94 O2 Del Method O2 Flow Rate 02/11/22 09:34 Nasal Cannula 4 02/11/22 08:56 Nasal Cannula 5 02/11/22 07:09 02/11/22 04:00 Nasal Cannula 4 02/11/22 03:07 Nasal Cannula 5 02/11/22 03:02 Laboratory Results Abnormal Lab Results 02/10/22 02/10/22 02/11/22 16:35 22:39 07:44 WBC 13.24 H RBC 2.67 L Hgb 7.2 L Hct 23.2 L MCV 86.9 MCH 27.0 MCHC 31.0 L RDW Std Deviation 55.8 H RDW Coeff of [place] 17.6 H Plt Count 270 MPV 11.4 Immature Gran % (Auto) 0.5 Neut % (Auto) 78.1 Lymph % (Auto) 12.9 [place] % (Auto) 7.8 Eos % (Auto) 0.3 Baso % (Auto) 0.4 Reticulocyte % (Auto) Neut # (Auto) 10.34 H Lymph # (Auto) 1.71 [place] # (Auto) 1.03 H Eos # (Auto) 0.04 Baso # (Auto) 0.05 Reticulocyte # Immature Gran # (Auto) 0.07 H RBC Morphology Unremarkable Sodium Potassium Chloride Carbon Dioxide Anion Gap BUN Creatinine Est Cr Clr Drug Dosing Est GFR ( Amer) Est GFR (Non-Af Amer) BUN/Creatinine Ratio Glucose POC Glucose 102 H 114 H Calcium Phosphorus Magnesium Iron Transferrin Ferritin Vitamin B12 Folate 02/11/22 02/11/22 02/11/22 07:44 08:00 10:58 WBC RBC Hgb 7.2 L Hct 23.5 L MCV MCH MCHC RDW Std Deviation RDW Coeff of [place] Plt Count MPV Immature Gran % (Auto) Neut % (Auto) Lymph % (Auto) [place] % (Auto) Eos % (Auto) Baso % (Auto) Reticulocyte % (Auto) Neut # (Auto) Lymph # (Auto) [place] # (Auto) Eos # (Auto) Baso # (Auto) Reticulocyte # Immature Gran # (Auto) RBC Morphology Sodium 139 Potassium 4.4 Chloride 107 Carbon Dioxide 26 Anion Gap 6 BUN 30 H Creatinine 1.24 H D Est Cr Clr Drug Dosing 35.6 Est GFR ( Amer) 46.5 Est GFR (Non-Af Amer) 40.1 BUN/Creatinine Ratio 24.2 H Glucose 106 H POC Glucose 118 H Calcium 8.0 L Phosphorus 2.3 L D Magnesium 2.1 Iron Transferrin Ferritin Vitamin B12 Folate 02/11/22 02/11/22 02/11/22 10:58 10:59 10:59 WBC RBC Hgb Hct MCV MCH MCHC RDW Std Deviation RDW Coeff of [place] Plt Count MPV Immature Gran % (Auto) Neut % (Auto) Lymph % (Auto) [place] % (Auto) Eos % (Auto) Baso % (Auto) Reticulocyte % (Auto) 2.4 H Neut # (Auto) Lymph # (Auto) [place] # (Auto) Eos # (Auto) Baso # (Auto) Reticulocyte # 0.06 Immature Gran # (Auto) RBC Morphology Sodium Potassium Chloride Carbon Dioxide Anion Gap BUN Creatinine Est Cr Clr Drug Dosing Est GFR ( Amer) Est GFR (Non-Af Amer) BUN/Creatinine Ratio Glucose POC Glucose Calcium Phosphorus Magnesium Iron Transferrin Ferritin Vitamin B12 133 L Folate 11.81 02/11/22 02/11/22 12:00 12:03 WBC RBC Hgb Hct MCV MCH MCHC RDW Std Deviation RDW Coeff of [place] Plt Count MPV Immature Gran % (Auto) Neut % (Auto) Lymph % (Auto) [place] % (Auto) Eos % (Auto) Baso % (Auto) Reticulocyte % (Auto) Neut # (Auto) Lymph # (Auto) [place] # (Auto) Eos # (Auto) Baso # (Auto) Reticulocyte # Immature Gran # (Auto) RBC Morphology Sodium Potassium Chloride Carbon Dioxide Anion Gap BUN Creatinine Est Cr Clr Drug Dosing Est GFR ( Amer) Est GFR (Non-Af Amer) BUN/Creatinine Ratio Glucose POC Glucose 103 H Calcium Phosphorus Magnesium Iron 22 L Transferrin 257 Ferritin 72.4 Vitamin B12 Folate Diagnostic Findings Echocardiogram performed 05/12/2021: Normal LV systolic function with ejection fraction of 55-60%. Mild LVH. Mild left atrial dilation. Mild aortic stenosis. Elevated right ventricular systolic pressure suggestive of pulmonary hypertension. Head CT did not demonstrate any acute intracranial process. Chest x-ray demonstrated cardiomegaly with pulmonary vascular congestion Abdominal CT obtained the time of admission suggested acute pancreatitis. Distended gallbladder. Left adrenal nodule. (1) Digoxin toxicity Encounter type: initial encounter Injury intent: accidental or unintentional Qualified Code(s): T46.0X1A - Poisoning by cardiac-stimulant glycosides and drugs of similar action, accidental (unintentional), initial encounter
--- NOTE | 2022-02-11 19:19 | Billing Data ---
Date of Service February 11, 2022 Coding Level of Care Code 68707 Subseq Hosp Care Lvl 3
[2022-02-11] MEDS ORDERED: LORazepam 0.5 MG TAB PO STA (20:48)
--- NOTE | 2022-02-12 07:15 | Billing Data ---
Date of Service February 11, 2022 Coding Level of Care Code 36265 Subseq Hosp Care Lvl 2
[2022-02-12 07:29] LABS: Hematocrit (blood only) 24.6 % (34.1-44.9); Hemoglobin 7.5 g/dl (12.0-16.0); Mean Corpuscular Hemoglobin 26.8 pg (25.0-34.0); Mean Corpuscular Hgb Conc 30.5 g/dL (32.0-36.0); Mean Corpuscular Volume 87.9 fL (80.0-100.0); Mean Platelet Volume 10.9 fL (9.4-12.3); Platelet Count 264 K/uL (130-400); RDW Coefficient of Variation 17.6 % (11.5-14.5); White Blood Count 9.72 K/ul (4.8-10.8)
[2022-02-12 08:02] LABS: BUN Creatinine Ratio 21.9 (10-20); Calcium 7.9 mg/dl (8.5-10.1); Creatinine Clr Calc Pharmacy 42.1 ml/min; Est GFR (African American) 56.9 ml/min; Est GFR (Non-African American) 49.1 ml/min; Potassium 4.7 mmol/L (3.5-5.1)
--- NOTE | 2022-02-12 09:16 | Hospitalist Progress Note ---
Date of Service February 12, 2022 Assessment & Plan (1) Acute and chronic respiratory failure with hypoxia: Plan: - home 4L O2 - Likely due to recent COVID infection in elderly patient - Admission cxr w/ congestion, CT demonstrating cardiomegaly with b/l pleural effusions - Repeat CXR on 02/11 with similar findings - Currently saturating well on home O2 4L NC - Suspect some mild fluid overload- continue Lasix 20 mg PO daily for now - Treat supportively with pulmonary toilet- incentive spirometry, flutter valve, chest PT, albuterol PRN - PT/OT evaluations pending- pt will likely benefit from inpatient rehab (2) Symptomatic bradycardia: Plan: 81 year old female w/ PMHx of HTN, HLD, DM, COPD, AF on Xarelto, and recent covid (s/p molupiravir) diagnosed ~1 wk ago presents w/ sepsis, worsened hypoxi a, CHESTER, and severe bradycardia. - Suspect bradycardia is multifactorial- triggered by acute illness in elderly patient with several comorbidities and polypharmacy -May represent developing sick sinus syndrome as well - Cardiology consulted 02/09 -Pacemaker not urgently required and pt likely does not meet criteria currently -Will need to monitor her HR while off rate control medications before e valuation for potential pacemaker - Treatment initiated for digoxin toxicity 02/09 -Digibind administered -Recheck digoxin level 1.0, increased to 3 today- possible benign fluctuation vs element of chronic digoxin toxicity - Successfully weaned off dopamine on 02/10, HR stable in 60s-70s - Continue holding home diltiazem, digoxin, metoprolol for now -Will resume medications as HR continues to remain stable/increase (3) Atrial fibrillation: Plan: - AF w/ slow response, appears to vacillate between sinus bradycardia and atrial fibrillation - Held home Xarelto on admission given CHESTER - Held home metoprolol, diltiazem, and digoxin on admission given bradycardia - Given improvement in CHESTER and Hgb stable, resumed anticoagulation- switched from Xarelto to Eliquis 5 mg BID - Currently rate controlled in sinus rhythm but with HRs rising to 80s-90s along with elevated BP, resumed home metoprolol at 25 mg BID lower dose, will increase to 50 mg BID as tolerated (4) Anemia: Plan: - Hgb 8.9 with steady decrease to 7.2 from 02/10 - 02/11, low suspicion for acute bleed - Hgb 7.2 to 7.5 today - Iron low at 22, ferritin wnl, reticulocyte count elevated at 2.4, B12 low at 133 - Initiated cyanocobalamin for vitamin B12 deficiency on 02/11- 1000 mg PO daily, repeat B12 level as outpatient (5) CHESTER (acute kidney injury): Plan: - may be 2/2 covid, molupiravir, sepsis - Cr downtrending, currently 1.05 - Pure wick catheter in place - follow bmp. avoid nephrotoxic agents. renally dose meds (6) Sepsis: Plan: - w/ elevated lactate 4.0, wbc 13.8, cefepime started on admission - MRSA nares negative, procalcitonin negative, BCx and UCx pending - per CT abd, acute pancreatitis findings seen and cannot r/o gallbladder pathology, lipase wnl - Lactate downtrending to 2, fibrinogen wnl, WBC increase to 28 - Cefepime discontinued 02/09 - WBC trending downward 13 to 9.7 today - Trend CBC (7) Digoxin toxicity: Plan: - digoxin level 2.2, slightly supratherapeutic - digoxin rechecks at 1.0 and most recent 3.0 on 02/11 - suspect there may be an element of chronic digoxin toxicity present vs possible benign fluctuation (8) Acute hyperkalemia: Plan: - K 6 on admission, given IV dextrose, IV insulin 10u, and albuterol - K downtrending, currently resolved at 4.7 - Continue to trend BMP (9) Acute hypotension: Plan: - resolved - Resume home BP medications as HR allows - Continue losartan 25 mg daily - Resumed home metoprolol tartrate but at 25 mg, increase to 50 mg BID as tolerated (10) Diabetes mellitus: Plan: - last a1c 7.0. hold home regimen. pharmacy glycemic consult. (11) COVID: Plan: - covid isolation precautions - Negative RNA test on admission but positive home test 10 days prior Plan Diet: carb count ppx: Eliquis 5 mg BID code: full dispo: Telemetry Admission and Anticipated Discharge Date Admission Date: February 08, 2022 Supervising Physician Co-Signing Physician Notes I personally examined the patient and verified all choi points of history and exam, discussed case, and agree with decision making with Dr Salgado. Feels well overall. Did surprisingly well with PTwhen discussing that she actually did well enough that we may not be able to qualify her for rehab, she notes that she is nervous about going homethat she lives at home alone, has neighbors that can help but she really cannot rely on them. We discussed building confidence by doing more while she is still here in the hospital. Vitals noted, in general she is awake and alert hard of hearing but oriented this evening.. No distress. HEENT normocephalic atraumatic mucous membranes moist. Breathing unlabored no accessory muscle use good effort. Skin shows no rashes no pallor or icterus. Neuro without focal deficits. Altered mental statusdeliriumquestion being whether it was related to bradycardia/medication side effect, or related to infectious process. Either way is improved Bradycardiaappears predominantly to be med side effectheart rates improving, hemodynamically stable.rates acceptable now. - continue to follow with rates coming up someresume home metoprolol. Hard to tell if this is all polypharmacy or a hint towards sick sinus syndromewhile I would favor the former, certainly outpatient monitoring for the latter will be warranted Leukocytosisquite significant but now improving. no clear s/s infection - safe/stable off abx. anemia - no overt s/s blood loss. Follow periodically, outpatient work-up otherwise Weaknessdid surprisingly well with PT. OT input still pending, but I suspect it will be hard to qualify her for rehab. Given her concerns and the fact that she lives alonecertainly reasonable for case management to still look into the feasibility of rehab. If it is not possible to qualify her, then we could look at home once she has done enough to build her confidence. Subjective Overnight, pt did have some mild dyspnea and requested Ativan which she takes as a home medication. 0.25 mg Ativan PO given and pt's dyspnea resolved. On evaluation, pt notes her breathing is much better. Denies chest pain or any other acute complaints. She is open to a short stay in rehab before going home. Review of Systems Review of Systems: Per subjective Physical Exam Constitutional: WD/WN, vitals as above Eyes: PERRL, conjunctivae normal, anicteric sclerae Respiratory: Largely clear breath sounds, no increased work of breathing Cardiovascular: RRR, normal S1/S2, systolic murmur heard over LUSB Gastrointestinal (Abdomen): normal bowel sounds, soft, nontender, no hepatosplenomegaly Results & Data Results & Data ([facility]) Vital Signs (Past 12 Hours) Vital Signs Temp Pulse Resp BP BP Pulse Ox O2 Del Method 02/12/22 06:35 35.7 C L 87 18 185/84 H 94 Nasal Cannula 02/12/22 02:46 36.8 C 86 22 167/76 H 94 Nasal Cannula 02/11/22 22:17 36.5 C 94 H 18 179/79 H 96 Nasal Cannula 02/11/22 21:42 Nasal Cannula O2 Flow Rate 02/12/22 06:35 4 02/12/22 02:46 4 02/11/22 22:17 4 02/11/22 21:42 4 Resident Activity Tracking Resident Involvement: Resident Care Provided Care Provided: Adult Hospital Medicine (1) Digoxin toxicity Encounter type: initial encounter Injury intent: accidental or unintentional Qualified Code(s): T46.0X1A - Poisoning by cardiac-stimulant glycosides and drugs of similar action, accidental (unintentional), initial encounter (2) Anemia Anemia type: unspecified type Qualified Code(s): D64.9 - Anemia, unspecified
[2022-02-12] MEDS: INSULIN ASPART PER UNIT SC SCH ×4 (09:28→21:47)
[2022-02-12] MEDS: CETIRIZINE HCL 10 MG TABLET PO SCH (09:51)
[2022-02-12] MEDS: FUROSEMIDE 20 MG TAB PO SCH (09:51)
[2022-02-12] MEDS: FLUoxetine HCL 20 MG CAP PO SCH (09:51)
[2022-02-12] MEDS: FAMOTIDINE 20 MG TAB PO SCH (09:51)
[2022-02-12] MEDS: ATORVASTATIN 40 MG TAB PO SCH (09:51)
[2022-02-12] MEDS: FLUTICASONE/VILANTEROL 200/25MCG 14 PUFFS/INHALER INH SCH (09:51)
[2022-02-12] MEDS: LOSARTAN POTASSIUM 25 MG TAB PO SCH (09:51)
[2022-02-12] MEDS: APIXABAN 5 MG TABLET PO SCH ×2 (10:02→21:36)
[2022-02-12] MEDS: CYANOCOBALAMIN (B-12) 500 MCG TABLET PO SCH (10:03)
[2022-02-12] MEDS: METOPROLOL TARTRATE 25 MG TAB PO SCH ×2 (10:03→21:35)
--- NOTE | 2022-02-12 14:46 | Pharmacy Report ---
Pharmacy Glycemic Sign Off Nt - Date of Service February 12, 2022 - Assessment & Plan ASSESSMENT: * Pharmacy was consulted by Dr. Hernández on 02/08/22 for glycemic control and to write orders per [facility] inpatient glycemic control protocol. * Major changes made by pharmacy to antidiabetic regimen include: * Starting bolus insulin * Patient has been receiving/requiring 1 units of insulin per day for adequate glycemic control * BSGs ranging 102-160 mg/dl * Regimen has only required minor adjustments over the past 48hrs to achieve this level of control * Do not anticipate further changes in patient status that would quickly deteriorate glycemic control (i.e. patient to be NPO for upcoming procedure, steroids tapering, starting tube feedings, etc). * Please see recommendations for outpatient antidiabetic regimen below. PLAN FOR INPATIENT GLYCEMIC CONTROL: No changes needed to current regimen. * No basal insulin * Continue NovoLog per scale ACHS/Q6hrs while NPO * Goal range = 140-180 mg/dl * CF = 40 mg/dl/unit * CR = 1 unit for ever 20 g CHO consumed * Pharmacy is signing off of glycemic consult and will no longer be making adjustments to inpatient regimen. Please feel free to re-consult if needed. Thank you.
[2022-02-12 14:47] LABS: Babesia microti DNA Not Detected (Not Detected)
--- NOTE | 2022-02-12 19:47 | Billing Data ---
Date of Service February 12, 2022 Coding Level of Care Code 96119 Subseq Hosp Care Lvl 3
[2022-02-12] MEDS ORDERED: MELATONIN 3 MG TAB PO PRN (21:58)
[2022-02-13 05:53] LABS: Hematocrit (blood only) 26.1 % (34.1-44.9); Hemoglobin 7.9 g/dl (12.0-16.0); Mean Corpuscular Hemoglobin 26.8 pg (25.0-34.0); Mean Corpuscular Hgb Conc 30.3 g/dL (32.0-36.0); Mean Corpuscular Volume 88.5 fL (80.0-100.0); Mean Platelet Volume 10.1 fL (9.4-12.3); Platelet Count 288 K/uL (130-400); RDW Coefficient of Variation 17.4 % (11.5-14.5); RDW Standard Deviation 56.2 fL (36.4-46.3); Red Blood Count 2.95 M/uL (3.93-5.22); White Blood Count 8.32 K/ul (4.8-10.8)
[2022-02-13 06:12] LABS: BUN Creatinine Ratio 21.8 (10-20); Calcium 8.1 mg/dl (8.5-10.1); Creatinine Clr Calc Pharmacy 43.8 ml/min; Est GFR (African American) 59.6 ml/min; Est GFR (Non-African American) 51.4 ml/min; Potassium 4.4 mmol/L (3.5-5.1)
[2022-02-13] MEDS: INSULIN ASPART PER UNIT SC SCH ×2 (09:32→13:57)
[2022-02-13] MEDS: FLUoxetine HCL 20 MG CAP PO SCH (09:33)
[2022-02-13] MEDS: CETIRIZINE HCL 10 MG TABLET PO SCH (09:33)
[2022-02-13] MEDS: APIXABAN 5 MG TABLET PO SCH (09:33)
[2022-02-13] MEDS: ATORVASTATIN 40 MG TAB PO SCH (09:33)
[2022-02-13] MEDS: METOPROLOL TARTRATE 25 MG TAB PO SCH (09:33)
[2022-02-13] MEDS: FUROSEMIDE 20 MG TAB PO SCH (09:33)
[2022-02-13] MEDS: FAMOTIDINE 20 MG TAB PO SCH (09:33)
[2022-02-13] MEDS: CYANOCOBALAMIN (B-12) 500 MCG TABLET PO SCH (09:33)
[2022-02-13] MEDS: LOSARTAN POTASSIUM 25 MG TAB PO SCH (09:33)
[2022-02-13] MEDS: FLUTICASONE/VILANTEROL 200/25MCG 14 PUFFS/INHALER INH SCH (09:34)
--- NOTE | 2022-02-13 11:17 | Discharge Summary ---
Date of Service February 13, 2022 Admission HPI Per Admitting Provider 81 year old female w/ PMHx of HTN, HLD, DM, COPD, afib on Xarelto, and recent covid (s/p molnupiravir) ~ 1 wk ago who presents w/ worsened AMS and worsened respiratory status x couple days. She takes digoxin and metoprolol for her afib. Per niece, patient lives alone and family has been looking into arranging home health. Per niece, patient has had multiple refills of her meds and would refill before her old prescriptions were used up so she is unsure if there is any element of med nonadherence vs accidental inappropriate dosing. No EMR records, previous PCP: Dr. Mela Alvarez. 4L home O2. Hx limited by patient's extreme hard of hearing despite hearing aids vs altered mental status. Collateral hx from patient's niece by phone. ED course: 1L NSS. epinephrine drip. cefepime. 10u IV insulin. dextrose IV. albuterol neb. CT abd/pelv w/ acute pancreatitis. ecg sinus marizol vs afib slow response rate of 30. wbc 13.88. vbg pH 7.21. K 6.0. Cr 2.15. Lactate 4.0. Admission Exam Per Admitting Provider General: NAD. Extreme hard of hearing. Awake and alert. HEENT: Atraumatic, normocephalic. EOMI Pulm: No acc muscle use. Wearing oxymask. Mild expiratory wheezing anteriorly. Cardiac: bradycardic rate, -mrg. Radial pulses intact and symmetrical. Abdominal: Nondistended, soft. No wincing on palpation. Integ: Warm, dry, intact. Principal Diagnosis COVID respiratory failure, bradycardia from medication side effect Discharge Exam Constitutional:WD/WN, vitals as above Eyes:PERRL, conjunctivae normal, anicteric sclerae Respiratory:Largely clear breath sounds, no increased work of breathing Cardiovascular:RRR, normal S1/S2, systolic murmur heard over LUSB Gastrointestinal (Abdomen):normal bowel sounds, soft, nontender, no hepatosplenomegaly Discharge Data Allergies Allergy/AdvReac Type Severity Reaction Status Date / Time Penicillins AdvReac Mild GI SYMPTOMS Verified 02/08/22 18:33 Consultations 02/08/22 20:22 ED Decision to Admit Stat 02/09/22 03:30 Consult Cardiology Routine Ordered Studies 02/08/22 18:06 CT abd pelvis wo con Stat CT head/brain wo con Stat Hospital Course (1) Acute and chronic respiratory failure with hypoxia: 81 year old female w/ PMHx of HTN, HLD, DM, COPD, AF on Xarelto, and recent covid (s/p molupiravir) diagnosed ~1 wk ago presents w/ sepsis, worsened hypoxia, CHESTER, and severe bradycardia. 1) Acute and chronic respiratory failure with hypoxia: Plan: - home 4L O2 - Likely due to recent COVID infection in elderly patient - Admission cxr w/ congestion, CT demonstrating cardiomegaly with b/l pleural effusions - Repeat CXR on 02/11 with similar findings - Currently saturating well on home O2 4L NC - Suspect some mild fluid overload- continue Lasix 20 mg PO daily for now, resume home 40 mg dose on discharge - Treated supportively with pulmonary toilet- incentive spirometry, flutter valve, chest PT, albuterol PRN - Discharged to inpatient rehab (2) Symptomatic bradycardia: Plan: - Suspect bradycardia is multifactorial- triggered by acute illness in elderly patient with several comorbidities and polypharmacy -May represent developing sick sinus syndrome as well - Cardiology consulted 02/09 -Pacemaker not urgently required and pt likely does not meet criteria currently -Will need to monitor her HR while off rate control medications before evaluation for potential pacemaker - Treatment initiated for digoxin toxicity 02/09 -Digibind administered -Recheck digoxin level 1.0, increased to 3 today- possible benign fluctuation vs element of chronic digoxin toxicity - Successfully weaned off dopamine on 02/10, HR stable in 60s-70s - Continue holding home diltiazem, digoxin, metoprolol for now -Resume medications as HR continues to remain stable/increase- digoxin and diltiazem still held on discharge (3) Atrial fibrillation: Plan: - AF w/ slow response, appears to vacillate between sinus bradycardia and atrial fibrillation - Held home Xarelto on admission given CHESTER - Held home metoprolol, diltiazem, and digoxin on admission given bradycardia - Given improvement in CHESTER and Hgb stable, resumed anticoagulation- switched from Xarelto to Eliquis 5 mg BID on 02/12- will continue Eliquis on discharge - Currently rate controlled in sinus rhythm but with HRs rising to 80s-90s along with elevated BP, resumed home metoprolol at 25 mg BID lower dose on 02/12, increase to 50 mg BID as tolerated (4) Anemia: Plan: - Hgb 8.9 with steady decrease to 7.2 from 02/10 - 02/11, low suspicion for acute bleed - Iron low at 22, ferritin wnl, reticulocyte count elevated at 2.4, B12 low at 133 - Initiated cyanocobalamin for vitamin B12 deficiency on 02/11- 1000 mg PO daily, repeat B12 level as outpatient - Hgb stable 7.9 on day of discharge (5) CHESTER (acute kidney injury): Plan: - may be 2/2 covid, molupiravir, sepsis - Cr downtrending, currently 1.01 - Pure wick catheter in place (6) Sepsis: Plan: - w/ elevated lactate 4.0, wbc 13.8, cefepime started on admission - MRSA nares negative, procalcitonin negative, BCx and UCx pending - per CT abd, acute pancreatitis findings seen and cannot r/o gallbladder pathology, lipase wnl - Cefepime discontinued 02/09 - WBC trending downward 13 to 8.3 today (7) Digoxin toxicity: Plan: - digoxin level 2.2, slightly supratherapeutic - digoxin rechecks at 1.0 and most recent 3.0 on 02/11 - suspect there may be an element of chronic digoxin toxicity present vs possible benign fluctuation (8) Acute hyperkalemia: Plan: - K 6 on admission, given IV dextrose, IV insulin 10u, and albuterol - K downtrending, currently resolved at 4.4 (9) Acute hypotension: Plan: - resolved - Resume home BP medications as HR allows- BP largely 160s-180s/70s-90s in hospital - Continue losartan 25 mg daily - Resumed home metoprolol tartrate on 02/12 but at 25 mg, can increase to 50 mg BID as HR tolerates - Discharged on losartan 25 mg daily, metoprolol 25 mg (10) Diabetes mellitus: Plan: - last a1c 7.0 - Lantus, ISS in hospital (11) COVID: Plan: - covid isolation precautions, discontinued on discharge - Negative RNA test on admission but positive home test 10 days prior Plan Diet: carb count ppx: Eliquis 5 mg BID code: full dispo: D/c to rehab (2) Symptomatic bradycardia: (3) Atrial fibrillation: (4) Anemia: (5) CHESTER (acute kidney injury): (6) Sepsis: (7) Digoxin toxicity: (8) Acute hyperkalemia: (9) Acute hypotension: (10) Diabetes mellitus: (11) COVID: Total Time Total Time Spent Total Time Spent (In Minutes): 30 Discharge Plan Discharge Items Patient Disposition: Transfer Inpatient Rehab Fac Reason For Visit: AMS, SEVERE BRADYCARDIA, HYPOTENSION, COVID Discharge Diagnosis: COVID, bradycardia from medication effect Activity: Resume your previous activity Non-emergency contact: Primary Care Provider Call non-emergency contact if: you have any medication questions and your symptoms worsen Follow-up/Referrals: Irina Vivar MD [Primary Care Provider] - Diet: Carb Consistent or DM2 Addtl Attending Provider Instructions: 81 year old female w/ PMHx of HTN, HLD, DM, COPD, AF on Xarelto, and recent covid (s/p molupiravir) diagnosed ~1 wk ago presents w/ sepsis, worsened hypoxia, CHESTER, and severe bradycardia. 1) Acute and chronic respiratory failure with hypoxia: Plan: - home 4L O2 - Likely due to recent COVID infection in elderly patient - Admission cxr w/ congestion, CT demonstrating cardiomegaly with b/l pleural effusions - Repeat CXR on 02/11 with similar findings - Currently saturating well on home O2 4L NC - Suspect some mild fluid overload- continue Lasix 20 mg PO daily for now, resume home 40 mg dose on discharge - Treated supportively with pulmonary toilet- incentive spirometry, flutter valve, chest PT, albuterol PRN - Discharged to inpatient rehab (2) Symptomatic bradycardia: Plan: - Suspect bradycardia is multifactorial- triggered by acute illness in elderly patient with several comorbidities and polypharmacy -May represent developing sick sinus syndrome as well - Cardiology consulted 02/09 -Pacemaker not urgently required and pt likely does not meet criteria currently -Will need to monitor her HR while off rate control medications before evaluation for potential pacemaker - Treatment initiated for digoxin toxicity 02/09 -Digibind administered -Recheck digoxin level 1.0, increased to 3 today- possible benign fluctuation vs element of chronic digoxin toxicity - Successfully weaned off dopamine on 02/10, HR stable in 60s-70s - Continue holding home diltiazem, digoxin, metoprolol for now -Resume medications as HR continues to remain stable/increase- digoxin and diltiazem still held on discharge (3) Atrial fibrillation: Plan: - AF w/ slow response, appears to vacillate between sinus bradycardia and atrial fibrillation - Held home Xarelto on admission given CHESTER - Held home metoprolol, diltiazem, and digoxin on admission given bradycardia - Given improvement in CHESTER and Hgb stable, resumed anticoagulation- switched from Xarelto to Eliquis 5 mg BID on 02/12- will continue Eliquis on discharge - Currently rate controlled in sinus rhythm but with HRs rising to 80s-90s along with elevated BP, resumed home metoprolol at 25 mg BID lower dose on 02/12, increase to 50 mg BID as tolerated (4) Anemia: Plan: - Hgb 8.9 with steady decrease to 7.2 from 02/10 - 02/11, low suspicion for acute bleed - Iron low at 22, ferritin wnl, reticulocyte count elevated at 2.4, B12 low at 133 - Initiated cyanocobalamin for vitamin B12 deficiency on 02/11- 1000 mg PO daily, repeat B12 level as outpatient - Hgb stable 7.9 on day of discharge (5) CHESTER (acute kidney injury): Plan: - may be 2/2 covid, molupiravir, sepsis - Cr downtrending, currently 1.01 - Pure wick catheter in place (6) Sepsis: Plan: - w/ elevated lactate 4.0, wbc 13.8, cefepime started on admission - MRSA nares negative, procalcitonin negative, BCx and UCx pending - per CT abd, acute pancreatitis findings seen and cannot r/o gallbladder pathology, lipase wnl - Cefepime discontinued 02/09 - WBC trending downward 13 to 8.3 today (7) Digoxin toxicity: Plan: - digoxin level 2.2, slightly supratherapeutic - digoxin rechecks at 1.0 and most recent 3.0 on 02/11 - suspect there may be an element of chronic digoxin toxicity present vs possible benign fluctuation (8) Acute hyperkalemia: Plan: - K 6 on admission, given IV dextrose, IV insulin 10u, and albuterol - K downtrending, currently resolved at 4.4 (9) Acute hypotension: Plan: - resolved - Resume home BP medications as HR allows- BP largely 160s-180s/70s-90s in hospital - Continue losartan 25 mg daily - Resumed home metoprolol tartrate on 02/12 but at 25 mg, can increase to 50 mg BID as HR tolerates - Discharged on losartan 25 mg daily, metoprolol 25 mg (10) Diabetes mellitus: Plan: - last a1c 7.0 - Lantus, ISS in hospital (11) COVID: Plan: - covid isolation precautions, discontinued on discharge - Negative RNA test on admission but positive home test 10 days prior Plan Diet: carb count ppx: Eliquis 5 mg BID code: full dispo: D/c to rehab Pending Studies at Discharge: No Stand-Alone Forms: My [facility] Skilled Items Patient informed of condition?: Yes DNR: No Discharge Level of Care: Acute rehab Communicable Disease: No Discharge Prognosis: Stable Lines: None Urinary Catheter: No Medications and DC Order Prescriptions: New cyanocobalamin (vitamin B-12) 500 mcg Tablet 1,000 mcg PO QAM Qty: 30 0RF Eliquis 5 mg Tablet 5 mg PO BID Qty: 30 0RF Continued molnupiravir 200 mg capsule 800 mg PO Q12H 5 Days Qty: 40 0RF benzonatate 100 mg capsule 100 mg PO TID PRN (Reason: cough) Qty: 30 0RF atorvastatin 40 mg tablet 40 mg PO DAILY metformin 500 mg tablet 500 mg PO BID cetirizine 10 mg tablet 10 mg PO DAILY diltiazem HCl 240 mg capsule,extended release 24hr 240 mg PO QAM metoprolol tartrate 50 mg tablet 50 mg PO BID zafirlukast 20 mg tablet 20 mg PO BID omeprazole 20 mg capsule,delayed release(DR/EC) 20 mg PO DAILY digoxin 125 mcg (0.125 mg) tablet 125 mcg PO DAILY fluoxetine 20 mg capsule 20 mg PO DAILY furosemide [Lasix] 40 mg tablet 40 mg PO DAILY Qty: 30 3RF losartan 25 mg tablet 25 mg PO DAILY glipizide 5 mg tablet 5 mg PO DAILY fluticasone furoate-vilanterol 200-25 mcg/dose blister with device 1 inh INHALATION DAILY Discontinued Xarelto 15 mg tablet 15 mg PO DAILY Discharge Orders: Discharge Order (Routine); Ordered 02/13/22 Ordered By: Silvana Salgado Admission Data Admit Date/Time: 02/08/22 22:18 Attending Provider: Sudheer Valentino Admit Provider: Balwinder Hernández Primary Care Provider: Irina Vivar Other Providers: Hira Lopez ; Michel Salas ; Eliud Willson ; Yosef Lopez ; Tramaine Alvarado ; Aamir Flores ; Matt Mendenhall Jr ; Dima Tovar ; Simi Maurer ; Beth Zapata ; Omkar Adan ; Reza Mcclendon ; Ishmael Stuart ; Mercedes Ibarra ; Tess Tipton ; Ever Sneed ; Aaron Arnold ; Yovany Slater ; Tramaine Roach V. ; [facility] Other Interventions: Discharge Summary Assessment (RN) Last Done: 02/13/22 11:51 Supervising Physician Co-Signing Physician Notes I personally examined the patient and verified all choi points of history and exam, discussed case, and agree with decision making with Dr Salgado. Feels well overall. feels up to rehab Vitals noted, in general she is awake and alert hard of hearing but oriented this evening.. No distress. HEENT normocephalic atraumatic mucous membranes moist. Breathing unlabored no accessory muscle use good effort. Skin shows no rashes no pallor or icterus. Neuro without focal deficits. Altered mental statusdeliriumquestion being whether it was related to bradycardia/medication side effect, or related to infectious process. Either way is improved Bradycardiaappears predominantly to be med side effectheart rates improving, hemodynamically stable.rates acceptable now. - continue to follow with rates coming up someresume home metoprolol. Hard to tell if this is all polypharmacy or a hint towards sick sinus syndromewhile I would favor the former, certainly outpatient monitoring for the latter will be warranted. d/w rehab PA-C; d/w granddtr re outpt monitoring Leukocytosisquite significant but now resolved. no clear s/s infection - safe/stable off abx. anemia - no overt s/s blood loss. Follow periodically, outpatient work-up otherwise Weaknessfor rehab Resident Activity Tracking Resident Involvement: Resident Care Provided Care Provided: Adult Hospital Medicine
--- NOTE | 2022-02-13 18:55 | Billing Data ---
Date of Service February 13, 2022 Coding Level of Care Code D/C DAY MANAGEMENT <30 MINS
== END 2022-02-13 14:17 | DRG 871 ==
LOC: ED 18:03 → SUATTDRO 22:18 → 1E 22:18 → 2W 02-10 20:00

== ENCOUNTER 2022-03-03 13:33 | Inpatient (IN) ==
[2022-03-03] MEDS ORDERED: dilTIAZem HCl 5 MG/ML 5 ML VIAL IV STA ×3 (13:44→22:14)
[2022-03-03] MEDS ORDERED: SODIUM CHLORIDE 0.9% 500 ML IV STA (13:45)
--- NOTE | 2022-03-03 14:13 | Emergency Department Note ---
Impression & Plan Atrial fibrillation with rapid ventricular response, Hypomagnesemia ED Provider Note NAME: KASHMIR William YOUNG AGE: 81 SEX: F : 1940 ARRIVES VIA: Ambulance INFORMANT: Patient, ED PROVIDER(S): Karson Berrios MD Chief Complaint: A. fib with RVR HPI: Patient presented due to concern for A. fib with RVR that was noted in the outpatient clinic. The patient was recently admitted due to concern for bradycardia and was thought to be secondary to dig toxicity. The patient is on chronic 4 L nasal cannula at all times. Former smoker but is not done so in many years. Patient denies any chest pains or shortness of breath nausea or vomiting. Patient states that she otherwise is feeling quite well. She does li ve by herself. Patient was brought over by EMS due to concern for her rapid heart rate. Patient Nuys any diarrhea. Patient states that she has been compliant with her medications. The patient does have somebody that comes in in the evening to stay with her most nights of the week. Patient denies any sweatiness. ROS: See HPI for pertinent positives and negatives. A total of 10 systems were re viewed and otherwise negative. Past medical history: See below Surgical history: See below Social history: See below Physical Exam: GENERAL: NAD, non-toxic. Nasal cannula in place, wearing glasses. EYE EXAM: Normal conjunctiva. PERRL, no anisocoria and EOM's grossly intact w/o pain. NECK: Supple, no nuchal rigidity, no adenopathy, non-tender. No signs of meningismus. FROM of the neck with good chin to chest and neck extension. No stridor. LUNGS: Clear to auscultation. Normal chest wall mechanics. HEART: Tachycardic and irregularly irregular, no MRG. ABDOMEN: Abdomen soft, non-tender, normo-active bowel sounds, no masses, no rebound or guarding. BACK: No CVA TTP. SKIN: No rashes and no bruising. UPPER EXTREMITIES: Upper extremities are grossly normal. LOWER EXTREMITIES: Grossly normal, no edema. NEURO EXAM: A&O x3, cranial nerves II-XII grossly intact, normal speech, moves all 4 extremities. Differential diagnoses: Premature contractions, electrolyte abnormality, cardiac dysrhythmia, thyroid dysfunction, pulmonary embolism, infection, gastrointestinal, as well as other pathologies. Course: Patient was seen and evaluated the bedside. Full history physical exam was performed. EKG interpreted by me A. fib with RVR, rate 138, normal QRS duration, normal axis, ST depression in the lateral leads. Imaging Studies: See Below Cardiac monitoring: An order was placed for continuous cardiac monitoring. The monitor shows a rate of 135 with tachycardic and irregularly irregular rhythm. MDM: Patient was seen due to concern for A. fib with RVR. The patient was satting well on her normal 4 L nasal cannula. Patient was ordered a dose of Cardizem in addition IV fluids. Blood work was also obtained including a dig level. The patient does have a white count of 13 does not complain of any infectious symptoms. Hemoglobin 8.8 which appears chronic and stable with regard to the patient's anemia. Platelet count is unremarkable. Kidney function does show a BUN/creatinine of 28 and 1.4 respectively. The patient's creatinine is slightly higher from before most recently was just about 1. Patient troponin is elevated with the patient has had chronic elevations in her troponin and has not complained of any acute chest pain or shortness of breath. Dig level is undet ectable. Patient did receive a second dose of Cardizem which did improve her heart rate. Given that the patient has had changes in her medications and the fact that the patient did require 2 doses of Cardizem to believe the patient would benefit from continued treatment. The patient is anticoagulated on Eliquis. I did speak with Dr. Jack and the patient was admitted to the medicine service. Critical Care: I have personally spent 37 minutes of critical care time in direct management of this patient. This includes bedside care, interpretation of diagnostic studies, and testing, discussion with consultants, patient, and family members, and other require inpatient management activities. This 37 minutes is in excess of all separately billable procedures. Past Med/Surg History Medical History Anxiety Atrial fibrillation COPD (chronic obstructive pulmonary disease) Diabetes mellitus Hyperlipidemia Hypertension Surgical History No pertinent past surgical history Family History Other Family history non-contributory Social History Smoking Status: Former smoker Second Hand Exposure: Yes; Hx Alcohol Use: No Hx Substance Use: No Preferred Language: Turkish Communication Ability: Effective Statistical Financial Analyst Required: No Beliefs That Will Affect Care: None marital status: / Current Living Situation: Alone Current Living Situation Comment: unable to obtain Other Information That Helps Us Care for You: No Feels Safe at Home: Yes Safety Concerns: Feels Safe At This Time Assistive Devices: Cane, Oxygen - Continuous and Walker Allergies Allergies Allergy/AdvReac Type Severity Reaction Status Date / Time Penicillins AdvReac Mild GI SYMPTOMS Verified 03/03/22 16:04 Home Meds Home Medications Medication Instructions Recorded Confirmed atorvastatin 40 mg tablet 40 mg PO DAILY 05/12/21 03/03/22 cetirizine 10 mg tablet 10 mg PO DAILY 05/12/21 03/03/22 diltiazem HCl 240 mg 240 mg PO QAM 05/12/21 03/03/22 capsule,extended release 24 hr fluoxetine 20 mg capsule 20 mg PO DAILY 05/12/21 03/03/22 metformin 500 mg tablet 500 mg PO BID 05/12/21 03/03/22 metoprolol tartrate 50 mg tablet 50 mg PO BID 05/12/21 03/03/22 omeprazole 20 mg capsule,delayed 20 mg PO DAILY 05/12/21 03/03/22 release zafirlukast 20 mg tablet 20 mg PO BID 05/12/21 03/03/22 fluticasone furoate 200 1 inh inhalation DAILY 02/08/22 03/03/22 mcg-vilanterol 25 mcg/dose inhalation powder glipizide 5 mg tablet 5 mg PO DAILY 02/08/22 03/03/22 losartan 25 mg tablet 25 mg PO DAILY 02/08/22 03/03/22 Previous Rx's Medication Instructions Recorded furosemide 40 mg tablet (Lasix) 40 mg PO DAILY #30 tabs 05/13/21 benzonatate 100 mg capsule 100 mg PO TID PRN cough #30 caps 01/27/22 apixaban 5 mg tablet (Eliquis) 5 mg PO BID #30 tabs 02/13/22 cyanocobalamin (vitamin B-12) 500 1,000 mcg PO QAM #30 tabs 02/13/22 mcg tablet Results & Data (ED) Vital Signs Vital Signs - 24 hr 03/03/22 13:46 03/03/22 13:46 03/03/22 13:34 Temperature 36.6 C Temperature Source Oral Pulse Rate 144 H 135 H Pulse Rate from SpO2 Sensor Pulse Rhythm Irregular Respiratory Rate 16 16 Blood Pressure 135/76 Blood Pressure Mean 95 Pulse Oximetry 99 Oxygen Delivery Method Nasal Cannula Nasal Cannula Oxygen Flow Rate 4 4 Sepsis New/Unexplained Change in Mental Status No Sepsis Action Taken by Nursing No Action Required 03/03/22 13:43 03/03/22 13:43 03/03/22 14:00 Temperature Temperature Source Pulse Rate 145 H Pulse Rate from SpO2 Sensor 144 H Pulse Rhythm Respiratory Rate 28 H Blood Pressure 116/62 114/62 Blood Pressure Mean 80 79 Pulse Oximetry 99 Oxygen Delivery Method Nasal Cannula Oxygen Flow Rate 4 Sepsis New/Unexplained Change in Mental Status Sepsis Action Taken by Nursing 03/03/22 14:00 03/03/22 14:30 03/03/22 14:36 Temperature Temperature Source Pulse Rate 135 H 120 H 121 H Pulse Rate from SpO2 Sensor 117 H Pulse Rhythm Respiratory Rate 35 H 24 27 H Blood Pressure 118/62 Blood Pressure Mean 80 Pulse Oximetry 99 100 Oxygen Delivery Method Nasal Cannula Nasal Cannula Oxygen Flow Rate 4 4 Sepsis New/Unexplained Change in Mental Status Sepsis Action Taken by Nursing 03/03/22 14:45 03/03/22 14:45 Temperature Temperature Source Pulse Rate 90 Pulse Rate from SpO2 Sensor 81 Pulse Rhythm Respiratory Rate 23 Blood Pressure 112/80 Blood Pressure Mean 90 Pulse Oximetry 97 Oxygen Delivery Method Nasal Cannula Oxygen Flow Rate 4 Sepsis New/Unexplained Change in Mental Status Sepsis Action Taken by [facility] Medications Current Medication List: was personally reviewed by me Laboratory Data Attestation: I reviewed the patient's lab results. Result diagrams: 03/03/22 14:24 03/03/22 14:24 Lab Results 03/03/22 03/03/22 03/03/22 Range/Units 14:24 14:24 14:24 WBC 13.10 H (4.8-10.8) K/ul RBC 3.32 L (3.93-5.22) M/uL Hgb 8.8 L (12.0-16.0) g/dl Hct 29.0 L (34.1-44.9) % MCV 87.3 (80.0-100.0) fL MCH 26.5 (25.0-34.0) pg MCHC 30.3 L (32.0-36.0) g/dL RDW Std Deviation 54.5 H (36.4-46.3) fL RDW Coeff of [place] 17.2 H (11.5-14.5) % Plt Count 341 (130-400) K/uL MPV 11.8 (9.4-12.3) fL Immature Gran % (Auto) 0.5 % Neut % (Auto) 67.7 % Lymph % (Auto) 20.9 % [place] % (Auto) 8.9 % Eos % (Auto) 1.2 % Baso % (Auto) 0.8 % Neut # (Auto) 8.88 H (1.4-6.5) K/uL Lymph # (Auto) 2.74 (1.2-3.4) K/uL [place] # (Auto) 1.16 H (0.24-0.82) K/uL Eos # (Auto) 0.16 (0-0.50) K/uL Baso # (Auto) 0.10 (0-0.2) K/uL Immature Gran # (Auto) 0.06 H (0.00-0.02) K/uL PT (9.0-12.0) Seconds INR (0.9-1.1) APTT (21.0-31.0) Seconds PTT Ratio Sodium 138 (136-145) mmol/L Potassium 4.7 (3.5-5.1) mmol/L Chloride 101 (98-107) mmol/L Carbon Dioxide 29 (21-32) mmol/L Anion Gap 8 (3-11) BUN 28 H (6-23) mg/dl Creatinine 1.45 H (0.6-1.2) mg/dl Est Cr Clr Drug Dosing Not Reportable Est GFR ( Amer) 38.5 ml/min Est GFR (Non-Af Amer) 33.2 ml/min BUN/Creatinine Ratio 19.3 (10-20) Glucose 87 (70-99(Fasting)) mg/dl Calcium 8.7 (8.5-10.1) mg/dl Phosphorus 3.5 (2.5-4.9) mg/dl Magnesium 1.3 L (1.7-2.4) mg/dl Total Bilirubin 0.3 (0.2-1.0) mg/dl AST 13 (13-39) U/L ALT 10 (7-52) U/L Alkaline Phosphatase 54 (34-104) U/L Troponin I High Sens 37.0 H (0-14) pg/ml C-Reactive Protein (0-0.5) mg/dl Total Protein 6.6 (6.0-8.3) gm/dl Albumin 3.7 (3.4-5.0) gm/dl Globulin 2.9 (2.5-4.0) gm/dl Albumin/Globulin Ratio 1.3 (0.9-2) Procalcitonin (0-0.5) ng/ml TSH 2.360 (0.300-4.500) uIu/ml Digoxin (0.8-2.0) ng/ml 03/03/22 03/03/22 03/03/22 Range/Units 14:24 14:24 14:24 WBC (4.8-10.8) K/ul RBC (3.93-5.22) M/uL Hgb (12.0-16.0) g/dl Hct (34.1-44.9) % MCV (80.0-100.0) fL MCH (25.0-34.0) pg MCHC (32.0-36.0) g/dL RDW Std Deviation (36.4-46.3) fL RDW Coeff of [place] (11.5-14.5) % Plt Count (130-400) K/uL MPV (9.4-12.3) fL Immature Gran % (Auto) % Neut % (Auto) % Lymph % (Auto) % [place] % (Auto) % Eos % (Auto) % Baso % (Auto) % Neut # (Auto) (1.4-6.5) K/uL Lymph # (Auto) (1.2-3.4) K/uL [place] # (Auto) (0.24-0.82) K/uL Eos # (Auto) (0-0.50) K/uL Baso # (Auto) (0-0.2) K/uL Immature Gran # (Auto) (0.00-0.02) K/uL PT 11.6 (9.0-12.0) Seconds INR 1.1 (0.9-1.1) APTT 28.1 (21.0-31.0) Seconds PTT Ratio 1.0 Sodium (136-145) mmol/L Potassium (3.5-5.1) mmol/L Chloride (98-107) mmol/L Carbon Dioxide (21-32) mmol/L Anion Gap (3-11) BUN (6-23) mg/dl Creatinine (0.6-1.2) mg/dl Est Cr Clr Drug Dosing Est GFR ( Amer) ml/min Est GFR (Non-Af Amer) ml/min BUN/Creatinine Ratio (10-20) Glucose (70-99(Fasting)) mg/dl Calcium (8.5-10.1) mg/dl Phosphorus (2.5-4.9) mg/dl Magnesium (1.7-2.4) mg/dl Total Bilirubin (0.2-1.0) mg/dl AST (13-39) U/L ALT (7-52) U/L Alkaline Phosphatase (34-104) U/L Troponin I High Sens (0-14) pg/ml C-Reactive Protein < 0.50 (0-0.5) mg/dl Total Protein (6.0-8.3) gm/dl Albumin (3.4-5.0) gm/dl Globulin (2.5-4.0) gm/dl Albumin/Globulin Ratio (0.9-2) Procalcitonin (0-0.5) ng/ml TSH (0.300-4.500) uIu/ml Digoxin < 0.3 L (0.8-2.0) ng/ml 03/03/22 Range/Units 14:24 WBC (4.8-10.8) K/ul RBC (3.93-5.22) M/uL Hgb (12.0-16.0) g/dl Hct (34.1-44.9) % MCV (80.0-100.0) fL MCH (25.0-34.0) pg MCHC (32.0-36.0) g/dL RDW Std Deviation (36.4-46.3) fL RDW Coeff of [place] (11.5-14.5) % Plt Count (130-400) K/uL MPV (9.4-12.3) fL Immature Gran % (Auto) % Neut % (Auto) % Lymph % (Auto) % [place] % (Auto) % Eos % (Auto) % Baso % (Auto) % Neut # (Auto) (1.4-6.5) K/uL Lymph # (Auto) (1.2-3.4) K/uL [place] # (Auto) (0.24-0.82) K/uL Eos # (Auto) (0-0.50) K/uL Baso # (Auto) (0-0.2) K/uL Immature Gran # (Auto) (0.00-0.02) K/uL PT (9.0-12.0) Seconds INR (0.9-1.1) APTT (21.0-31.0) Seconds PTT Ratio Sodium (136-145) mmol/L Potassium (3.5-5.1) mmol/L Chloride (98-107) mmol/L Carbon Dioxide (21-32) mmol/L Anion Gap (3-11) BUN (6-23) mg/dl Creatinine (0.6-1.2) mg/dl Est Cr Clr Drug Dosing Est GFR ( Amer) ml/min Est GFR (Non-Af Amer) ml/min BUN/Creatinine Ratio (10-20) Glucose (70-99(Fasting)) mg/dl Calcium (8.5-10.1) mg/dl Phosphorus (2.5-4.9) mg/dl Magnesium (1.7-2.4) mg/dl Total Bilirubin (0.2-1.0) mg/dl AST (13-39) U/L ALT (7-52) U/L Alkaline Phosphatase (34-104) U/L Troponin I High Sens (0-14) pg/ml C-Reactive Protein (0-0.5) mg/dl Total Protein (6.0-8.3) gm/dl Albumin (3.4-5.0) gm/dl Globulin (2.5-4.0) gm/dl Albumin/Globulin Ratio (0.9-2) Procalcitonin < 0.05 (0-0.5) ng/ml TSH (0.300-4.500) uIu/ml Digoxin (0.8-2.0) ng/ml Administered Medications Insulin Aspart (Insulin Aspart Per Unit) 0 units SC ACHS CARMEN Stop: 04/02/22 16:29 Last Admin: 03/03/22 19:50 Dose: Not Given Documented By: Admin: 03/03/22 17:19 Dose: Not Given Documented By: JODY Co-signed By: TEDDY Miscellaneous (Zafirlukast 20 Mg - Order Awaiting Action) 1 each N/A QS CARMEN Stop: 04/02/22 15:59 Last Admin: 03/03/22 19:05 Dose: Not Given Documented By: GUILLERMO Discontinued Medications Diltiazem HCl (Diltiazem Hcl 5 Mg/Ml 5 Ml Vial) 15 mg IV NOW STA Stop: 03/03/22 13:45 Last Admin: 03/03/22 14:16 Dose: 15 mg Documented By: HAILEY Co-signed By: RIC Diltiazem HCl (Diltiazem Hcl 5 Mg/Ml 5 Ml Vial) 20 mg IV NOW STA Stop: 03/03/22 14:35 Last Admin: 03/03/22 14:39 Dose: 20 mg Documented By: HAILEY Co-signed By: TEDDY Sodium Chloride (Nss) 500 mls @ 999 mls/hr IV .Q31M STA Stop: 03/03/22 14:15 Last Infusion: 03/03/22 14:30 Dose: 0 mls/hr Documented By: Admin: 03/03/22 13:59 Dose: 999 mls/hr Documented By: HAILEY Imaging Data Radiologist's Impression: Chest X-Ray 03/03/22 13:45 XR chest 1V portable HISTORY: Dysrhythmia COMPARISON: Chest 02/11/2022. FINDINGS: No pneumothorax. The heart remains enlarged. No change in the diffuse interstitial/vascular thickening suggestive of mild pulmonary vascular congestion. Trace bilateral pleural effusions, unchanged. Calcifications within the aortic knob. IMPRESSION: 1. No change in the cardiomegaly and mild pulmonary vascular congestion. 2. Trace bilateral pleural effusions are again noted. ACT 112: Negative or not required by law. Electronically signed by: Artemio Harrison M.D. 03/03/2022 2:48 PM Discharge Plan Visit Data Chief Complaint: Cardiac Assessment ED Provider: Karson Berrios Discharge Problem: Atrial fibrillation with rapid ventricular response, Hypomagnesemia Patient Disposition: Admitted As Inpatient Discharge Instructions Interventions: ED Discharge Assessment Last Done: 03/03/22 18:47
[2022-03-03 14:45] LABS: Basophils % (auto) 0.8 %; Eosinophils # (auto) 0.16 K/uL (0-0.50); Eosinophils % (auto) 1.2 %; Hemoglobin 8.8 g/dl (12.0-16.0); Immature Granulocytes # (auto) 0.06 K/uL (0.00-0.02); Immature Granulocytes % (auto) 0.5 %; Lymphocytes # (auto) 2.74 K/uL (1.2-3.4); Lymphocytes % (auto) 20.9 %; Mean Corpuscular Hemoglobin 26.5 pg (25.0-34.0); Mean Corpuscular Hgb Conc 30.3 g/dL (32.0-36.0); Mean Corpuscular Volume 87.3 fL (80.0-100.0); Mean Platelet Volume 11.8 fL (9.4-12.3); Monocytes # (auto) 1.16 K/uL (0.24-0.82); Monocytes % (auto) 8.9 %; Neutrophils # (auto) 8.88 K/uL (1.4-6.5); Neutrophils % (auto) 67.7 %; Platelet Count 341 K/uL (130-400); RDW Coefficient of Variation 17.2 % (11.5-14.5); RDW Standard Deviation 54.5 fL (36.4-46.3); Red Blood Count 3.32 M/uL (3.93-5.22)
--- NOTE | 2022-03-03 14:49 | XRay Report ---
XR chest 1V portable HISTORY: Dysrhythmia COMPARISON: Chest 02/11/2022. FINDINGS: No pneumothorax. The heart remains enlarged. No change in the diffuse interstitial/vascular thickening suggestive of mild pulmonary vascular congestion. Trace bilateral pleural effusions, unch anged. Calcifications within the aortic knob. IMPRESSION: 1. No change in the cardiomegaly and mild pulmonary vascular congestion. 2. Trace bilateral pleural effusions are again noted. ACT 112: Negative or not required by law. Electronically signed by: Artemio Harrison M.D. 03/03/2022 2:48 PM
[2022-03-03 15:09] LABS: Alanine Aminotransferase 10 U/L (7-52); Albumin Globulin Ratio 1.3 (0.9-2); Albumin Level 3.7 gm/dl (3.4-5.0); Alkaline Phosphatase 54 U/L (34-104); Anion Gap 8 (3-11); Aspartate Aminotransferase 13 U/L (13-39); BUN Creatinine Ratio 19.3 (10-20); Bilirubin,Total 0.3 mg/dl (0.2-1.0); Blood Urea Nitrogen 28 mg/dl (6-23); Calcium 8.7 mg/dl (8.5-10.1); Carbon Dioxide 29 mmol/L (21-32); Chloride 101 mmol/L (98-107); Est GFR (African American) 38.5 ml/min; Est GFR (Non-African American) 33.2 ml/min; Globulin 2.9 gm/dl (2.5-4.0); Glucose 87 mg/dl (70-99(Fasting)); Magnesium 1.3 mg/dl (1.7-2.4); Phosphorus 3.5 mg/dl (2.5-4.9); Potassium 4.7 mmol/L (3.5-5.1); Sodium 138 mmol/L (136-145); Total Protein 6.6 gm/dl (6.0-8.3)
[2022-03-03 15:17] LABS: INR 1.1 (0.9-1.1); Partial Thromboplastin Time 28.1 Seconds (21.0-31.0); Prothrombin Time 11.6 Seconds (9.0-12.0)
[2022-03-03] MEDS ORDERED: ACETAMINOPHEN 325 MG TAB PO PRN (15:22)
[2022-03-03] MEDS ORDERED: BENZONATATE 100 MG CAPSULE PO PRN (15:26)
--- NOTE | 2022-03-03 15:33 | History & Physical Report ---
Date of Service March 03, 2022 Assessment & Plan (1) Atrial fibrillation: Plan: Atrial fibrillation in RVR in a 81 year old female w/ PMHx of HTN, HLD, DM, COPD, afib on Xarelto, and recent covid (s/p molupiravir) diagnosed late January. Patient had 2 BMS this AM but none since. Will admit to PCU. Placed on diltiazem drip. Continue metoprolol consult cardio. Continue home anticoagulation. Patient has been on Dig. This has been held due to toxicity. Doubt cause is infection but will order inflammatory markers, procal, (2) Hypertension: Plan: resume home meds (3) Hyperlipidemia: Plan: resume home meds (4) Diabetes mellitus: Plan: placed on glycemic control (5) COVID: Plan: Patient had history of this from previous hospital stay. History of Present Illness Chief Complaint: elevated heart rate Primary Care Provider: Irina Vivar MD 81 year old female w/ PMHx of HTN, HLD, DM, COPD, afib on Xarelto, and recent covid (s/p molnupiravir) presents to the hospital from her PCP. She was found to be in atrial fibrillation and RVR. Patient had 2 BM this morning, second BM was loose. No change in color o stool. Patient denies any fever, chills, nausea, vomiting, fatigue, palpitations. Despite being on Atrial fibrillation, patient reports being mainly asymptomatic Allergies Allergy/AdvReac Type Severity Reaction Status Date / Time Penicillins AdvReac Mild GI SYMPTOMS Verified 03/03/22 16:04 Home Medications Medication Instructions Recorded Confirmed Type atorvastatin 40 mg tablet 40 mg PO DAILY 05/12/21 03/03/22 History cetirizine 10 mg tablet 10 mg PO DAILY 05/12/21 03/03/22 History diltiazem HCl 240 mg 240 mg PO QAM 05/12/21 03/03/22 History capsule,extended release 24 hr fluoxetine 20 mg capsule 20 mg PO DAILY 05/12/21 03/03/22 History metformin 500 mg tablet 500 mg PO BID 05/12/21 03/03/22 History metoprolol tartrate 50 mg tablet 50 mg PO BID 05/12/21 03/03/22 History omeprazole 20 mg capsule,delayed 20 mg PO DAILY 05/12/21 03/03/22 History release zafirlukast 20 mg tablet 20 mg PO BID 05/12/21 03/03/22 History furosemide 40 mg tablet (Lasix) 40 mg PO DAILY #30 tabs 05/13/21 03/03/22 Rx benzonatate 100 mg capsule 100 mg PO TID PRN cough #30 caps 01/27/22 03/03/22 Rx fluticasone furoate 200 1 inh inhalation DAILY 02/08/22 03/03/22 History mcg-vilanterol 25 mcg/dose inhalation powder glipizide 5 mg tablet 5 mg PO DAILY 02/08/22 03/03/22 History losartan 25 mg tablet 25 mg PO DAILY 02/08/22 03/03/22 History apixaban 5 mg tablet (Eliquis) 5 mg PO BID #30 tabs 02/13/22 03/03/22 Rx cyanocobalamin (vitamin B-12) 500 1,000 mcg PO QAM #30 tabs 02/13/22 03/03/22 Rx mcg tablet Past Med/Surg History Medical History Anxiety Atrial fibrillation COPD (chronic obstructive pulmonary disease) Diabetes mellitus Hyperlipidemia Hypertension Surgical History No pertinent past surgical history Family History Other Family history non-contributory Social History Smoking Status: Former smoker Second Hand Exposure: Yes; Hx Alcohol Use: No Hx Substance Use: No Preferred Language: Malian Communication Ability: Effective Analyst Sales Required: No Beliefs That Will Affect Care: None marital status: / Current Living Situation: Alone Current Living Situation Comment: unable to obtain Other Information That Helps Us Care for You: No Feels Safe at Home: Yes Safety Concerns: Feels Safe At This Time Assistive Devices: Cane, Oxygen - Continuous and Walker Review of Systems Review of Systems: no headache, no visual changes no speech or swallowing issues no chest pain, pressure or palpitations no abdominal pain, nausea or vomiting, diarrhea or constipation no dysuria, hematuria or frequency no focal joint pain or swelling no back pain, CVA tenderness or radicular pain no bruising, bleeding or rashes no focal signs of weakness or numbness or altered sensation no complaints of anxiety or depression.. Physical Exam Physical Exam: The patient appeared with chronic respiratory failure but appears to be stable at this time Vital signs as documented. Head exam is normocephalic atraumatic Neck is without JVD, thyromegaly, or carotid bruits. Lungs are poor air movement no focal loss no wheezes Cardiac exam, Rhythm is regular.. Systolic ejection murmur at the right upper sternal border Abdominal exam reveals normal bowel sounds, soft non tender, no masses Extremities both pedal pulses are present Neurologic exam is alert and oriented, no focal loss of strength or sensation Skin is without bruises or rashes Psychologically is without concerns for anxiety or depression Results & Data Results & Data ([facility]) Vital Signs (Past 12 Hours) Vital Signs Temp Pulse Resp BP Pulse Ox O2 Del Method O2 Flow Rate 03/03/22 14:45 90 23 97 Nasal Cannula 4 03/03/22 14:45 112/80 03/03/22 14:36 121 H 27 H 100 Nasal Cannula 4 03/03/22 14:30 120 H 24 118/62 99 Nasal Cannula 4 03/03/22 14:00 135 H 35 H 03/03/22 14:00 114/62 03/03/22 13:43 116/62 03/03/22 13:43 145 H 28 H 99 Nasal Cannula 4 03/03/22 13:34 135 H 16 03/03/22 13:46 Nasal Cannula 4 03/03/22 13:46 36.6 C 144 H 16 135/76 99 Nasal Cannula 4 PG Care Time/CCT Total # of Minutes Spent Total Time Spent with Patient: Total time spent is greater than 50% in coordination of care (as documented) at patient's floor/unit and/or counseling patient: Coding Level of Care Code 01268 Initial Inpt Care Lvl 3 Diagnoses Atrial fibrillation I48.91 Hypertension I10 Hyperlipidemia E78.5 Diabetes mellitus E11.9 COVID U07.1
[2022-03-03] MEDS ORDERED: PHARMACY GLYCEMIC MGMT CONSULT PRN (15:51)
[2022-03-03] MEDS ORDERED: DEXTROSE 50% 50 ML SYRINGE IV PRN (16:30)
[2022-03-03] MEDS ORDERED: GLUCOSE 10 TAB/TUBE PO PRN (16:30)
[2022-03-03] MEDS ORDERED: GLUCOSE 40% GEL 15 GM TUBE PO PRN (16:30)
[2022-03-03] MEDS ORDERED: CARBOHYDRATES FOR HYPOGLYCEMIA PO PRN (16:30)
[2022-03-03] MEDS ORDERED: GLUCAGON FOR INJ 1 MG VIAL IM PRN (16:30)
--- NOTE | 2022-03-03 16:44 | Electrocardiogram Report ---
Test Reason : Blood Pressure : / mmHG Vent. Rate : 138 BPM Atrial Rate : 174 BPM P-R Int : 000 ms QRS Dur : 080 ms QT Int : 316 ms P-R-T Axes : 000 044 133 degrees QTc Int : 478 ms Poor data quality, interpretation may be adversely affected Atrial fibrillation with rapid ventricular response Nonspecific ST and T wave abnormality Abnormal ECG When compared with ECG of 08-FEB-2022 18:29, Vent. rate has increased BY 105 BPM Confirmed by Eliud Willson ([id number]) on 03/03/2022 4:44:14 PM Referred By: Confirmed By:Eliud Willson
[2022-03-03] MEDS: INSULIN ASPART PER UNIT SC SCH ×2 (17:19→19:50)
[2022-03-03] MEDS: METOPROLOL TARTRATE 50 MG TAB PO SCH (21:14)
[2022-03-03] MEDS: APIXABAN 5 MG TABLET PO SCH (21:14)
[2022-03-03] MEDS: MELATONIN 3 MG TAB PO PRN (21:31)
[2022-03-03] MEDS ORDERED: STAT IV Infusion **Titration per Protocol STA (22:31)
[2022-03-03] MEDS ORDERED: dilTIAZem HCL 125 MG in DEXTROSE 5% 100 ML IV SCH (22:45)
[2022-03-04] MEDS ORDERED: ONDANSETRON INJ 2 MG/ML 2 ML VIAL IV STA (00:35)
[2022-03-04] MEDS: PANTOprazole 40 MG TAB PO SCH (08:10)
[2022-03-04] MEDS: FLUoxetine HCL 20 MG CAP PO SCH (08:10)
[2022-03-04] MEDS: CYANOCOBALAMIN (B-12) 500 MCG TABLET PO SCH (08:10)
[2022-03-04] MEDS: METOPROLOL TARTRATE 50 MG TAB PO SCH (08:10)
[2022-03-04] MEDS: APIXABAN 5 MG TABLET PO SCH ×2 (08:11→20:08)
[2022-03-04] MEDS: ATORVASTATIN 40 MG TAB PO SCH (08:11)
[2022-03-04] MEDS: CETIRIZINE HCL 10 MG TABLET PO SCH (08:11)
[2022-03-04] MEDS: FLUTICASONE/VILANTEROL 200/25MCG 14 PUFFS/INHALER INH SCH (08:11)
[2022-03-04] MEDS: INSULIN ASPART PER UNIT SC SCH ×4 (08:56→21:03)
[2022-03-04] MEDS ORDERED: dilTIAZem HCL 240 MG CAPCR PO SCH (09:00)
[2022-03-04] MEDS ORDERED: FUROSEMIDE 40 MG TAB PO SCH (09:00)
[2022-03-04] MEDS ORDERED: LOSARTAN POTASSIUM 25 MG TAB PO SCH (09:00)
[2022-03-04 09:01] LABS: Hematocrit (blood only) 31.6 % (34.1-44.9); Hemoglobin 9.6 g/dl (12.0-16.0); Mean Corpuscular Hemoglobin 26.7 pg (25.0-34.0); Mean Corpuscular Hgb Conc 30.4 g/dL (32.0-36.0); Mean Platelet Volume 12.4 fL (9.4-12.3); Platelet Count 357 K/uL (130-400); RDW Coefficient of Variation 17.2 % (11.5-14.5); RDW Standard Deviation 54.7 fL (36.4-46.3); Red Blood Count 3.59 M/uL (3.93-5.22); White Blood Count 13.34 K/ul (4.8-10.8)
[2022-03-04 09:22] LABS: Creatinine Clr Calc Pharmacy 25.3 ml/min; Est GFR (African American) 32.2 ml/min; Est GFR (Non-African American) 27.8 ml/min
--- NOTE | 2022-03-04 10:35 | Pharmacy Report ---
Pharmacy Glycemic Short Note 2 - Date of Service March 04, 2022 - Glycemic Short BSG Results (Last 24 hours): 03/03/22 03/03/22 03/03/22 14:24 17:13 19:27 Glucose 87 POC Glucose 105 H 141 H 03/04/22 03/04/22 00:26 07:30 Glucose POC Glucose 152 H 135 H OUTPATIENT ANTIDIABETIC REGIMEN: * Glipizide 5mg daily * Metformin 500mg BID * A1c = 6.9% 02/10/22 ASSESSMENT: * Type 2 diabetic admitted for a fib w/ RVR * BSGs well controlled thus far * Plan to hold oral DM agents at this time and treat with Novolog SQ per "moderate" stress wt-based regimen. Need for basal insulin will be reassessed daily. Fasting BSG acceptable this AM with no basal on board. PLAN FOR INPATIENT GLYCEMIC CONTROL: * Hold outpatient oral diabetes medications * Basal insulin * none at this time - following fasting AM BSGs * Bolus insulin * NovoLog per scale ACHS or Q6hrs while NPO * Goal Range: Low 120 mg/dL - High 160 mg/dL * Correction Factor: 30 mg/dL/unit * Nutritional / Prandial insulin per carb ratio of 1 unit per 10 grams CHO consumed
[2022-03-04] MEDS ORDERED: dilTIAZem HCl 60 MG TAB PO SCH (13:00)
--- NOTE | 2022-03-04 13:20 | Cardiology Consultation ---
Date of Consultation March 04, 2022 Assessment & Plan (1) Atrial fibrillation with rapid ventricular response: (2) Elevated troponin: (3) Pulmonary hypertension: Plan 1. Atrial fibrillation: She presented to the outpatient clinic with an elevated ventricular rate. I believe the time of her recent discharge she was in a sinus rhythm. With unclear medication changes were performed at the rehab facility, but it seems like digoxin was discontinued. This is probably in light of her history of toxicity. She is not appear to be symptomatic from the arrhythmia or the high rates. We will attempt more aggressive rate control keeping in mind the potential for bradycardia if she returns to sinus rhythm. We can switch her current diltiazem infusion to an oral dose. I will increase her metoprolol. Will monitor her hemodynamics. These medications can be titrated as required for continued elevation in her heart rates. Target rate at rest would be 100 beats per minute. given her presentation with toxicity from digoxin, would seem reasonable to try and avoid this medication. See how she response to more aggressive rate control. Amiodarone or cardioversion would also be a consideration. 2. Elevated troponin: This appears to be in line with prior elevations during her last admission. No symptoms suggestive of recent acute coronary syndrome. I would not pursue any additional ischemic evaluation at this point. 3. pulmonary hypertension: Noted on her last echocardiogram. Possibly related to her underlying primary lung disease. At the time of the echocardiogram she also suffering from COVID-19. Some of those findings may have been more related to her acute illness. In any event, treatment of her primary pulmonary problem with continue supplemental oxygen seems most appropriate. I will be away from the hospital for the next 2 days. Any questions regarding her management can be referred to the on-call [facility] supervisor grading History of Present Illness Reason for Consultation: atrial fibrillation Requesting Physician: Marcie Attending Physician: Stefan Jack History of Present Illness the patient is an 81-year-old woman with a history atrial fibrillation who was recently discharged from the hospital after experiencing what appeared to be an overdose of digoxin. She was also hospitalized for COVID-19. During her hospitalization she presented with significant bradycardia. Digibind was administered with improvement in her hemodynamics. It appears she was discharged to rehabilitation on a regimen of diltiazem, metoprolol and digoxin. Patient reported completing rehabilitation without incident. She states they did change some medications but could not provide any specific details. She presented yesterday for routine follow-up appointment at the office of her primary care physician. She was discovered to have atrial fibrillation and high ventricular rates. She was placed in an ambulance and sent to the emergency room. Patient was unaware of any palpitations or other symptoms at that time. She did not report any limiting dyspnea. She does use supplemental oxygen at all times but does not describe shortness of breath. she did not report any chest pain. She has not had symptoms of dizziness, presyncope or syncope. This morning she also claims to be feeling well. She was concerned about the need to take an ambulance to the hospital and worried about the severity of her condition. At home she is ambulatory with a walker. She does not do much activity outside of the house. She has several paid helpers who come and do routine housework and even spend the night. In the past she may have had some difficulty managing her medications. Currently the medicines are distributed for her on weekly basis. Allergies Allergy/AdvReac Type Severity Reaction Status Date / Time Penicillins AdvReac Mild GI SYMPTOMS Verified 03/03/22 16:04 Home Medications Medication Instructions Recorded Confirmed Type atorvastatin 40 mg tablet 40 mg PO DAILY 05/12/21 03/03/22 History cetirizine 10 mg tablet 10 mg PO DAILY 05/12/21 03/03/22 History diltiazem HCl 240 mg 240 mg PO QAM 05/12/21 03/03/22 History capsule,extended release 24 hr fluoxetine 20 mg capsule 20 mg PO DAILY 05/12/21 03/03/22 History metformin 500 mg tablet 500 mg PO BID 05/12/21 03/03/22 History metoprolol tartrate 50 mg tablet 50 mg PO BID 05/12/21 03/03/22 History omeprazole 20 mg capsule,delayed 20 mg PO DAILY 05/12/21 03/03/22 History release zafirlukast 20 mg tablet 20 mg PO BID 05/12/21 03/03/22 History furosemide 40 mg tablet (Lasix) 40 mg PO DAILY #30 tabs 05/13/21 03/03/22 Rx benzonatate 100 mg capsule 100 mg PO TID PRN cough #30 caps 01/27/22 03/03/22 Rx fluticasone furoate 200 1 inh inhalation DAILY 02/08/22 03/03/22 History mcg-vilanterol 25 mcg/dose inhalation powder glipizide 5 mg tablet 5 mg PO DAILY 02/08/22 03/03/22 History losartan 25 mg tablet 25 mg PO DAILY 02/08/22 03/03/22 History apixaban 5 mg tablet (Eliquis) 5 mg PO BID #30 tabs 02/13/22 03/03/22 Rx cyanocobalamin (vitamin B-12) 500 1,000 mcg PO QAM #30 tabs 02/13/22 03/03/22 Rx mcg tablet Patient History Medical History Anxiety Atrial fibrillation COPD (chronic obstructive pulmonary disease) Diabetes mellitus Hyperlipidemia Hypertension Surgical History No pertinent past surgical history Family History Other Family history non-contributory Social History Smoking Status: Former smoker Second Hand Exposure: Yes; Hx Alcohol Use: No Hx Substance Use: No Preferred Language: Taiwanese Communication Ability: Effective Supervisor Hanging And Trimming Required: No Beliefs That Will Affect Care: None marital status: / Current Living Situation: Alone Current Living Situation Comment: unable to obtain Other Information That Helps Us Care for You: No Feels Safe at Home: Yes Safety Concerns: Feels Safe At This Time Assistive Devices: Cane, Oxygen - Continuous and Walker Review of Systems Review of Systems: Per HPI. No recent gastrointestinal disturbance. Eating and drinking well. No recent fevers or chills. Physical Exam Physical Exam: She is alert and oriented x3. Mood affect appear normal. She answered all questions appropriately. Hard of hearing HEENT: Sclerae are anicteric. Pupils are equal and reactive to light and accommodation. Extraocular movements were intact. Neuro: Cranial nerves intact. notable facial, lip tremor. Lungs: Lungs are clear to auscultation bilaterally. There are no rales wheezes or rhonchi. She has normal respiratory effort without use of accessory muscles. There is normal pulmonary excursion. Cardiac: The rhythm was irregular. S1 and S2 were normal. There are no murmurs on examination. The PMI was not markedly displaced on palpation. Abdomen: The abdomen was soft and nontender. Extremities: Patient has bilateral radial pulses that are equal in intensity. There is no evidence cyanosis or clubbing. There was no evidence of significant peripheral edema bilaterally. Resting tremor noted. Skin: There are no rashes noted on examination today. Results & Data ([facility]) Vital Signs (Past 12 Hours) Vital Signs Temp Pulse Pulse Resp BP Pulse Ox O2 Del Method 03/04/22 11:19 36.4 C L 91 H 17 101/72 100 Nasal Cannula 03/04/22 07:52 99 H 03/04/22 07:29 36.5 C 116 H 17 124/70 100 Nasal Cannula 03/04/22 06:01 97 H 112/93 03/04/22 04:43 101 H 123/66 03/04/22 03:03 36.6 C 86 16 119/68 99 Nasal Cannula 03/04/22 02:32 87 118/68 O2 Flow Rate 03/04/22 11:19 4 03/04/22 07:52 03/04/22 07:29 4 03/04/22 06:01 03/04/22 04:43 03/04/22 03:03 4 03/04/22 02:32 Laboratory Results Abnormal Lab Results 03/03/22 03/03/22 03/03/22 14:24 14:24 14:24 WBC 13.10 H RBC 3.32 L Hgb 8.8 L Hct 29.0 L MCV 87.3 MCH 26.5 MCHC 30.3 L RDW Std Deviation 54.5 H RDW Coeff of Balbina 17.2 H Plt Count 341 MPV 11.8 Immature Gran % (Auto) 0.5 Neut % (Auto) 67.7 Lymph % (Auto) 20.9 Mellette % (Auto) 8.9 Eos % (Auto) 1.2 Baso % (Auto) 0.8 Neut # (Auto) 8.88 H Lymph # (Auto) 2.74 Mellette # (Auto) 1.16 H Eos # (Auto) 0.16 Baso # (Auto) 0.10 Immature Gran # (Auto) 0.06 H ESR PT INR APTT PTT Ratio Sodium 138 Potassium 4.7 Chloride 101 Carbon Dioxide 29 Anion Gap 8 BUN 28 H Creatinine 1.45 H Est Cr Clr Drug Dosing Not Reportable Est GFR ( Amer) 38.5 Est GFR (Non-Af Amer) 33.2 BUN/Creatinine Ratio 19.3 Glucose 87 POC Glucose Calcium 8.7 Phosphorus 3.5 Magnesium 1.3 L Total Bilirubin 0.3 AST 13 ALT 10 Alkaline Phosphatase 54 Troponin I High Sens 37.0 H C-Reactive Protein Total Protein 6.6 Albumin 3.7 Globulin 2.9 Albumin/Globulin Ratio 1.3 Procalcitonin TSH 2.360 Digoxin 03/03/22 03/03/22 03/03/22 14:24 14:24 14:24 WBC RBC Hgb Hct MCV MCH MCHC RDW Std Deviation RDW Coeff of Balb[place] Plt Count MPV Immature Gran % (Auto) Neut % (Auto) Lymph % (Auto) Mellette % (Auto) Eos % (Auto) Baso % (Auto) Neut # (Auto) Lymph # (Auto) Mellette # (Auto) Eos # (Auto) Baso # (Auto) Immature Gran # (Auto) ESR PT 11.6 INR 1.1 APTT 28.1 PTT Ratio 1.0 Sodium Potassium Chloride Carbon Dioxide Anion Gap BUN Creatinine Est Cr Clr Drug Dosing Est GFR ( Amer) Est GFR (Non-Af Amer) BUN/Creatinine Ratio Glucose POC Glucose Calcium Phosphorus Magnesium Total Bilirubin AST ALT Alkaline Phosphatase Troponin I High Sens C-Reactive Protein < 0.50 Total Protein Albumin Globulin Albumin/Globulin Ratio Procalcitonin TSH Digoxin < 0.3 L 03/03/22 03/03/22 03/03/22 14:24 16:00 17:13 WBC RBC Hgb Hct MCV MCH MCHC RDW Std Deviation RDW Coeff of Balbina Plt Count MPV Immature Gran % (Auto) Neut % (Auto) Lymph % (Auto) Mellette % (Auto) Eos % (Auto) Baso % (Auto) Neut # (Auto) Lymph # (Auto) Mellette # (Auto) Eos # (Auto) Baso # (Auto) Immature Gran # (Auto) ESR 37 H PT INR APTT PTT Ratio Sodium Potassium Chloride Carbon Dioxide Anion Gap BUN Creatinine Est Cr Clr Drug Dosing Est GFR ( Amer) Est GFR (Non-Af Amer) BUN/Creatinine Ratio Glucose POC Glucose 105 H Calcium Phosphorus Magnesium Total Bilirubin AST ALT Alkaline Phosphatase Troponin I High Sens C-Reactive Protein Total Protein Albumin Globulin Albumin/Globulin Ratio Procalcitonin < 0.05 TSH Digoxin 03/03/22 03/04/22 03/04/22 19:27 00:26 07:30 WBC RBC Hgb Hct MCV MCH MCHC RDW Std Deviation RDW Coeff of Balbina Plt Count MPV Immature Gran % (Auto) Neut % (Auto) Lymph % (Auto) Mellette % (Auto) Eos % (Auto) Baso % (Auto) Neut # (Auto) Lymph # (Auto) Mellette # (Auto) Eos # (Auto) Baso # (Auto) Immature Gran # (Auto) ESR PT INR APTT PTT Ratio Sodium Potassium Chloride Carbon Dioxide Anion Gap BUN Creatinine Est Cr Clr Drug Dosing Est GFR ( Amer) Est GFR (Non-Af Amer) BUN/Creatinine Ratio Glucose POC Glucose 141 H 152 H 135 H Calcium Phosphorus Magnesium Total Bilirubin AST ALT Alkaline Phosphatase Troponin I High Sens C-Reactive Protein Total Protein Albumin Globulin Albumin/Globulin Ratio Procalcitonin TSH Digoxin 03/04/22 03/04/22 03/04/22 08:13 08:13 11:22 WBC 13.34 H RBC 3.59 L Hgb 9.6 L Hct 31.6 L MCV 88.0 MCH 26.7 MCHC 30.4 L RDW Std Deviation 54.7 H RDW Coeff of Balbina 17.2 H Plt Count 357 MPV 12.4 H Immature Gran % (Auto) Neut % (Auto) Lymph % (Auto) Mellette % (Auto) Eos % (Auto) Baso % (Auto) Neut # (Auto) Lymph # (Auto) Mellette # (Auto) Eos # (Auto) Baso # (Auto) Immature Gran # (Auto) ESR PT INR APTT PTT Ratio Sodium Potassium Chloride Carbon Dioxide Anion Gap BUN Creatinine 1.68 H Est Cr Clr Drug Dosing 25.3 Est GFR ( Amer) 32.2 Est GFR (Non-Af Amer) 27.8 BUN/Creatinine Ratio Glucose POC Glucose 158 H Calcium Phosphorus Magnesium Total Bilirubin AST ALT Alkaline Phosphatase Troponin I High Sens C-Reactive Protein Total Protein Albumin Globulin Albumin/Globulin Ratio Procalcitonin TSH Digoxin Diagnostic Findings Echocardiogram performed 02/09/2022: Normal LV systolic function. Moderate to severe tricuspid regurgitation. Elevated right-sided pulmonary pressures. PG Care Time/CCT Total # of Minutes Spent Total Time Spent with Patient: Total time spent is greater than 50% in coordination of care (as documented) at patient's floor/unit and/or counseling patient: Coding Level of Care Code 98747 Initial Inpt Care Lvl 3 Diagnoses Atrial fibrillation with rapid ventricular response I48.91 Elevated troponin R77.8 Pulmonary hypertension I27.20
[2022-03-04] MEDS ORDERED: dilTIAZem HCL 125 MG in DEXTROSE 5% 100 ML IV ONE (13:49)
[2022-03-04] MEDS: dilTIAZem HCl 60 MG TAB PO SCH ×2 (17:45→23:57)
[2022-03-04] MEDS ORDERED: METOPROLOL SUCC 25MG EXT REL TAB PO SCH (21:00)
--- NOTE | 2022-03-04 22:34 | Hospitalist Progress Note ---
Date of Service March 04, 2022 Assessment & Plan (1) Atrial fibrillation: Plan: Atrial fibrillation in RVR in a 81 year old female w/ PMHx of HTN, HLD, DM, COPD, afib on Xarelto, and recent covid (s/p molupiravir) diagnosed late January. No longer having diarrhea, Admitted to PCU. Cardio recommended to stop diltiazem drip and place on diltiazem q6h with hold parameters Continue metoprolol with hold parameters. Patient was cardioverted. Continue home anticoagulation. Patient has been on Dig. Doubt cause is infection but will order inflammatory markers, procal, (2) Hypertension: Plan: resume home meds (3) Hyperlipidemia: Plan: resume home meds (4) Diabetes mellitus: Plan: placed on glycemic control (5) COVID: Plan: Patient had history of this earlier in February. Admission and Anticipated Discharge Date Admission Date: March 03, 2022 Subjective Patient is feeling well. Continues to be dysphasic. Review of Systems Review of Systems: All systems reviewed & are unremarkable except as noted in HPI & below Physical Exam Physical Exam: The patient appeared with chronic respiratory failure but appea rs to be stable at this time Vital signs as documented. Head exam is normocephalic atraumatic Neck is without JVD, thyromegaly, or carotid bruits. Lungs are poor air movement no focal loss no wheezes Cardiac exam, Rhythm is regular.. Systolic ejection murmur at the right upper sternal border Abdominal exam reveals normal bowel sounds, soft non tender, no masses Extremities both pedal pulses are present Neurologic exam is alert and oriented, no focal loss of strength or sensation Skin is without bruises or rashes Psychologically is without concerns for anxiety or depression Results & Data Results & Data ([facility]) Vital Signs (Past 12 Hours) Vital Signs Temp Pulse Pulse Resp BP Pulse Ox O2 Del Method 03/04/22 19:00 36.7 C 69 18 101/47 L 100 Nasal Cannula 03/04/22 17:43 62 107/42 L 03/04/22 14:10 120 H 03/04/22 15:32 53 L 03/04/22 16:54 67 03/04/22 15:25 36.5 C 130 H 17 112/64 100 Nasal Cannula 03/04/22 11:19 36.4 C L 91 H 17 101/72 100 Nasal Cannula O2 Flow Rate 03/04/22 19:00 4 03/04/22 17:43 03/04/22 14:10 03/04/22 15:32 03/04/22 16:54 03/04/22 15:25 4 03/04/22 11:19 4 PG Care Time/CCT Total # of Minutes Spent Total Time Spent with Patient: Total time spent is greater than 50% in coordination of care (as documented) at patient's floor/unit and/or counseling patient: Coding Level of Care Code 55933 Subseq Hosp Care Lvl 3 Diagnoses Atrial fibrillation I48.91 Hypertension I10 Hyperlipidemia E78.5 Diabetes mellitus E11.9 COVID U07.1 Time Spent (min) 35
[2022-03-04] MEDS: MELATONIN 3 MG TAB PO PRN (23:57)
[2022-03-05] MEDS ORDERED: ALUMINUM/MAGNESIUM SUSP 30 ML UDC PO STA (03:36)
[2022-03-05] MEDS ORDERED: ALUMINUM/MAGNESIUM SUSP 30 ML UDC ONE (03:50)
[2022-03-05] MEDS ORDERED: SODIUM CHLORIDE 0.9% 1000ML 500 ML IV ONE (04:58)
[2022-03-05] MEDS ORDERED: ONDANSETRON INJ 2 MG/ML 2 ML VIAL IV STA (04:58)
[2022-03-05] MEDS ORDERED: ATROPINE SULFATE 0.1 MG/ML 10ML SYR IV STA ×3 (05:05→05:28)
[2022-03-05] MEDS ORDERED: SODIUM CHLORIDE 0.9% 1000ML 1,000 ML IV ONE (05:05)
[2022-03-05] MEDS ORDERED: ATROPINE SULFATE 0.1 MG/ML 10ML SYR IV ONE (05:07)
[2022-03-05] MEDS ORDERED: STAT IV STA (05:19)
[2022-03-05] MEDS ORDERED: CALCIUM GLUCONATE 1000 MG/60 ML NSS IV ONE (05:24)
[2022-03-05] MEDS ORDERED: CALCIUM GLUCONATE 10% 2,000 MG in DEXTROSE 5% 50 ML IV ONE ×2 (05:30→08:30)
[2022-03-05] MEDS ORDERED: GLUCAGON IV ONE (05:30)
[2022-03-05] MEDS ORDERED: GLUCAGON 5 MG in SYRINGE 0 ML IV ONE ×2 (05:30→07:59)
[2022-03-05] MEDS ORDERED: STAT IV Infusion **Titration per Protocol STA ×2 (05:38→07:05)
[2022-03-05] MEDS ORDERED: DOPamine 400MG / 250ML D5W IV ONE (05:39)
[2022-03-05] MEDS ORDERED: DOPamine / D5W 400 MG/250 ML BAG IV SCH (05:45)
[2022-03-05] MEDS: dilTIAZem HCl 60 MG TAB PO SCH (05:48)
--- NOTE | 2022-03-05 06:13 | Communication Note ---
Date of Service: March 05, 2022 04:49 Am received message from RN patient had HR down to 29 and sustaining at 30-40s. I went to the patient's room and found her to be somnolent but respo nsive -- stating that she felt nauseous and sick to her stomach. HR was still in the 30s at that time. BP was unable to be measured at the time. She had received Metoprolol dose around 2100 and Cardizem dose around midnight. Due to concern for beta vaughn and/or calcium channel vaughn overdose, patient was given glucagon 6mg and calcium gluconate 2g. She also received a total of 3 doses of Atropine 1mg. HR remained in 40s. Patient continued to be responsive yet somnolent. Case was discussed with ICU [facility] and decision was made to start dopamine gtt and transfer pt to ICU level. At the time of transfer patient remained with HR in 40s. Case discussed with Dr. Maynard Agree with above Resident Activity Tracking Resident Involvement: Resident Care Provided Care Provided: Adult Hospital Medicine
--- NOTE | 2022-03-05 06:46 | Procedure Note ---
Procedure Note Date of Service March 05, 2022 Note INTERNAL JUGULAR CENTRAL LINE PROCEDURE NOTE: Procedure: Internal Jugular Central Line Placement Attending: Dr. Dumont Provider: GAURI Dickey Indication: Central Drug Administration, Poor Venous Access, Multiple Lab Draws Necessary, etc. Anesthesia: Lidocaine 1% Line placed emergently following symptomatic bradycardia with limited access requiring vasopressor support. A time-out was completed verifying correct patient, procedure, site, positioning, and implants(s) or special equipment if applicable. Patients right neck was cleansed and draped in the typical sterile fashion using Chloraprep. The Internal Jugular Vein and Carotid Artery were identified using ultrasound. The superficial tissue was anesthetized using 3 mL of 1% lidocaine without epinephrine under direct visualization with the ultrasound. After adequate anesthetization was achieved, the Internal Jugular vein was cannulated under direct ultrasound guidance using an introducer needle on a syringe. Good venous blood return was maintained prior to removal of syringe from introducer needle. Using Seldinger Technique, a guide wire was advanced through the introducer needle without resistance. The introducer needle was removed and ultrasound images were obtained of the guide wire within the Internal Jugular Vein and saved to the patients medical record. A small incision was made in penetrating fashion at the guide wire insertion site utilizing an 11 blade scalpel. The dilator was advanced to the vessel without resistance. The dilator was exchanged for the triple lumen catheter which was advanced into the vessel without resistance. The guide wire was removed intact from the catheter without issue. Claves were placed on each catheter tip with confirmation of good blood flow from each lumen. Each port was easily flushed with sterile saline. The catheter was placed at 17 cm and sut[address] in place. BioPatch was applied to the catheter and a sterile Tegaderm dressing was applied over the catheter with careful attention to sterility. Patient tolerated procedure well. No immediate complications were met. Post procedure x-ray was completed, placement was appropriate and no pneumothorax was noted. Images obtained are saved for permanent record Procedural Ultrasound Guidance: Procedure Date: 03/05/2022 Indication: Central venous catheter insertion Attending: Dr. Dumont Provider: GAURI Dickey Artery AND Vein visualized: Yes Compressible Vein: Yes Guidewire or Short Catheter seen in vein prior to dilation: Yes Line confirmed in Vein with ultrasound: Yes Images obtained are saved for permanent record. Coding CPT Codes Tubes, Drains, and Vasc Access - Tubes, Drains, and Vasc Access: [id number] Place catheter in vein superior or inferior vena cava ([id number]) Tubes, Drains, and Vasc Access - Tubes, Drains, and Vasc Access: [id number] Ultrasound Guidance For Vascular ([id number]) [facility] [place] Procedure Codes (Charges) Tubes, Drains, and Vasc Access Procedure 1: Tubes, Drains, and Vasc Access: [id number] Place catheter in vein superior or inferior vena cava Procedure 2: Tubes, Drains, and Vasc Access: [id number] Ultrasound Guidance For Vascular
[2022-03-05 06:59] LABS: Basophils % (auto) 0.5 %; Eosinophils # (auto) 0.02 K/uL (0-0.50); Eosinophils % (auto) 0.1 %; Hematocrit (blood only) 31.8 % (34.1-44.9); Hemoglobin 9.3 g/dl (12.0-16.0); Immature Granulocytes # (auto) 1.01 K/uL (0.00-0.02); Immature Granulocytes % (auto) 4.6 %; Lymphocytes % (auto) 14.2 %; Mean Corpuscular Hemoglobin 26.6 pg (25.0-34.0); Mean Corpuscular Hgb Conc 29.2 g/dL (32.0-36.0); Mean Corpuscular Volume 90.9 fL (80.0-100.0); Monocytes # (auto) 0.73 K/uL (0.24-0.82); Monocytes % (auto) 3.4 %; Neutrophils # (auto) 16.83 K/uL (1.4-6.5); Neutrophils % (auto) 77.2 %; Nucleated RBC # (auto) 0.02 K/uL (0-0); Nucleated RBC % (auto) 0.1 %; Platelet Count 344 K/uL (130-400); RDW Coefficient of Variation 17.2 % (11.5-14.5); RDW Standard Deviation 56.6 fL (36.4-46.3); White Blood Count 21.79 K/ul (4.8-10.8)
--- NOTE | 2022-03-05 07:08 | XRay Report ---
XR chest 1V portable CLINICAL HISTORY: cvl insertion COMPARISON STUDY: Chest radiograph March 03, 2022. FINDINGS: There is no pneumothorax following placement of a right internal jugular central line. Cath eter tip projects over the cavoatrial junction. Small bilateral pleural effusions are unchanged. Pulm onary edema is unchanged. Mild cardiomegaly is noted. IMPRESSION: 1. No pneumothorax following placement of a right internal jugular central line. 2. No change in interstitial pulmonary edema with small bilateral pleural effusions. ACT 112: Negative or not required by law. Electronically signed by: Stevan Ch M.D. 03/05/2022 7:07 AM
[2022-03-05 07:17] LABS: BUN Creatinine Ratio 12.8 (10-20); Calcium 8.1 mg/dl (8.5-10.1); Creatinine Clr Calc Pharmacy 12.1 ml/min; Est GFR (African American) 12.9 ml/min; Est GFR (Non-African American) 11.1 ml/min; Potassium 6.1 mmol/L (3.5-5.1); Troponin I High Sensitivity 49.6 pg/ml (0-14)
[2022-03-05 07:18] LABS: Magnesium 1.6 mg/dl (1.7-2.4); Phosphorus 8.9 mg/dl (2.5-4.9)
--- NOTE | 2022-03-05 07:22 | Critical Care Consultation ---
Date of Consultation March 05, 2022 Assessment & Plan (1) Cardiogenic shock: (2) Pulmonary hypertension: (3) Symptomatic bradycardia: (4) Acute and chronic respiratory failure with hypoxia: (5) Atrial fibrillation: (6) CHESTER (acute kidney injury): (7) Hyperkalemia: Supervising Physician Co-Signing Physician Notes Reason Critically Ill: 81-year-old female past medical history of A. fib on Xarelto, chronic hypoxic respiratory failure on 4 L nasal cannula at home, hypertension, dyslipidemia, CKD presented to the hospital with A. fib with RVR but on the floor patient was found to be bradycardic and hypotensive transferred in the ICU to take care of symptomatic bradycardia Neuro - [facility] ICU: Negative --Metabolic encephalopathy Multifactorial Component of hypotension as well as bradycardia playing a role CT head 03/05/2022 negative for any intracranial hemorrhage or infarct Continue to monitor Cardiac - -- Symptomatic bradycardia with hypotension Continue with dopamine Additional Levophed for hypotension Avoid negative inotropic medication for the time being EKG shows junctional rhythm, hopefully there will be reversibility after the above measures --History of A. fib Currently blood pressure medications on hold --Dyslipidemia On atorvastatin Respiratory - -- Acute on chronic hypoxic respiratory failure Continue with O2 supplementation to keep oxygen between 90-92% Consider BiPAP nightly and as needed shortness of breath GI - Continue with pantoprazole RENAL/LYTES - --- CHESTER on CKD Follow-up urine lites Monitor BUN/creatinine Avoid nephrotoxic medications Strict ins and outs - Adrian in place ENDO - -- Diabetes type 2 Continue with ICU hypoglycemia protocol HEME - -- Normocytic anemia Monitor H&H ID - --No acute issues right now --Prophylaxis VTE: Eliquis on hold, IPC's GI: Pantoprazole Lines: Right IJ, peripheral, Adrian Diet: N.p.o. Plan: For hyperkalemia give Veltassa, insulin, albuterol and D50 will repeat a dose of Veltassa after based on the labs at 11 AM Try to go down on dopamine to around 5, additional Levophed to maintain blood pressure Patient got 1 L bolus so far. I will give another 500 mL bolus. Will give another 5 mg of glucagon Strict in and out I have personally spent 63 minutes of critical care time in the direct management of this patient. This is a life/limb threatening event. This includes time spent evaluating patient, direct bedside care, chart review, placing orders, interpretation of diagnostic studies, discussion with consultants, patient, and family members, as well as other required patient management activities. This time is exclusive of all separately billable procedures, and teaching time and separate from and in addition to any other critical care service time. History of Present Illness Attending Physician: Stefan Jack History of Present Illness 81-year-old female was admitted to hospital because of A. fib with RVR Past medical history: A. fib on apixaban, hypertension, dyslipidemia, diabetes, COPD Patient was initially on diltiazem drip which was changed to p.o. diltiazem and her metoprolol dose was increased On the floor patient went into bradycardic episode with hypotension. Heart rate was in the low 20s. Patient was given glucagon 6 mg x 1, calcium gluconate 2 g x 1 and 1 mg of Ativan x3 She was still hypotensive and bradycardic and was transferred to the ICU In the ICU patient was started on dopamine. Patient had just come back after CT of the head when I went to see her in the ICU Her map was in the 71 on dopamine 15 She was moving all extremities but she was not following any commands. Saturation was 96% on 6 L nasal cannula. Allergies Allergy/AdvReac Type Severity Reaction Status Date / Time Penicillins AdvReac Mild GI SYMPTOMS Verified 03/03/22 16:04 Home Medications Medication Instructions Recorded Confirmed Type atorvastatin 40 mg tablet 40 mg PO DAILY 05/12/21 03/03/22 History cetirizine 10 mg tablet 10 mg PO DAILY 05/12/21 03/03/22 History diltiazem HCl 240 mg 240 mg PO QAM 05/12/21 03/03/22 History capsule,extended release 24 hr fluoxetine 20 mg capsule 20 mg PO DAILY 05/12/21 03/03/22 History metformin 500 mg tablet 500 mg PO BID 05/12/21 03/03/22 History metoprolol tartrate 50 mg tablet 50 mg PO BID 05/12/21 03/03/22 History omeprazole 20 mg capsule,delayed 20 mg PO DAILY 05/12/21 03/03/22 History release zafirlukast 20 mg tablet 20 mg PO BID 05/12/21 03/03/22 History furosemide 40 mg tablet (Lasix) 40 mg PO DAILY #30 tabs 05/13/21 03/03/22 Rx benzonatate 100 mg capsule 100 mg PO TID PRN cough #30 caps 01/27/22 03/03/22 Rx fluticasone furoate 200 1 inh inhalation DAILY 02/08/22 03/03/22 History mcg-vilanterol 25 mcg/dose inhalation powder glipizide 5 mg tablet 5 mg PO DAILY 02/08/22 03/03/22 History losartan 25 mg tablet 25 mg PO DAILY 02/08/22 03/03/22 History apixaban 5 mg tablet (Eliquis) 5 mg PO BID #30 tabs 02/13/22 03/03/22 Rx cyanocobalamin (vitamin B-12) 500 1,000 mcg PO QAM #30 tabs 02/13/22 03/03/22 Rx mcg tablet Patient History Medical History Anxiety Atrial fibrillation COPD (chronic obstructive pulmonary disease) Diabetes mellitus Hyperlipidemia Hypertension Surgical History No pertinent past surgical history Family History Other Family history non-contributory Social History Smoking Status: Former smoker Second Hand Exposure: Yes; Hx Alcohol Use: No Hx Substance Use: No Preferred Language: Hong Konger Communication Ability: Effective Steel Roller Required: No Beliefs That Will Affect Care: None marital status: / Current Living Situation: Alone Current Living Situation Comment: unable to obtain Other Information That Helps Us Care for You: No Feels Safe at Home: Yes Safety Concerns: Feels Safe At This Time Assistive Devices: Cane, Oxygen - Continuous and Walker Review of Systems Review of Systems: All systems reviewed & are unremarkable except as noted in HPI & below and Unobtainable due to cognitive status Physical Exam Physical Exam: Constitutional: No acute distress HEENT: EOMI, pupils dilated but responding to light Respiratory system: Decreased air entry bilaterally, no wheeze, no ABLA: Positive crackles bilateral lower lobes CVS: S1-S2 positive, no murmurs or gallops Abdomen: Soft, nontender, nondistended, positive bowel sounds x4 Extremities: +2 pulses bilaterally radialis/ dorsalis pedis, no cyanosis, +1 pitting edema bilateral lower extremity Neuro: Patient moving all extremities, awake, alert Psych: Normal mood and affect G/U: Positive Adrian Skin: no rashes, warm and dry Lymphatic: no cervical or axillary lymphadenopathy Results & Data Results & Data ([facility]) Vital Signs (Past 12 Hours) Vital Signs Temp Pulse Pulse Resp BP BP Pulse Ox 03/05/22 06:56 53 L 23 97 03/05/22 06:51 104/29 L 03/05/22 06:51 35.4 C L 52 L 19 97 03/05/22 06:41 81/53 L 03/05/22 06:39 51 L 19 88 L 03/05/22 06:39 105/34 L 03/05/22 06:36 51 L 18 96 03/05/22 06:36 69/51 L 03/05/22 06:31 51 L 20 100 03/05/22 06:31 111/36 L 03/05/22 06:30 50 L 19 98 03/05/22 06:25 108/34 L 03/05/22 06:25 48 L 17 93 03/05/22 06:24 47 L 20 91 03/05/22 06:24 94/36 L 03/05/22 06:16 90/37 L 03/05/22 06:16 52 L 21 93 03/05/22 06:15 53 L 21 81 L 03/05/22 06:11 49 L 22 03/05/22 06:11 119/35 L 03/05/22 06:08 49 L 9 L 03/05/22 02:52 36.5 C 52 L 17 92/42 L 100 03/04/22 23:29 36.4 C L 53 L 26 H 110/40 L 100 03/04/22 20:00 O2 Del Method O2 Flow Rate 03/05/22 06:56 03/05/22 06:51 03/05/22 06:51 03/05/22 06:41 03/05/22 06:39 03/05/22 06:39 03/05/22 06:36 03/05/22 06:36 03/05/22 06:31 03/05/22 06:31 03/05/22 06:30 03/05/22 06:25 03/05/22 06:25 03/05/22 06:24 03/05/22 06:24 03/05/22 06:16 03/05/22 06:16 03/05/22 06:15 03/05/22 06:11 03/05/22 06:11 03/05/22 06:08 03/05/22 02:52 Nasal Cannula 03/04/22 23:29 Nasal Cannula 4 03/04/22 20:00 Nasal Cannula 4 Laboratory Results 03/05/22 06:40 03/05/22 06:40 Coding Level of Care Code Critical Care 1st 30-74 mins Diagnoses Cardiogenic shock R57.0 Pulmonary hypertension I27.20 Symptomatic bradycardia R00.1 Acute and chronic respiratory failure with hypoxia J96.21 Atrial fibrillation I48.91 CHESTER (acute kidney injury) N17.9 Hyperkalemia E87.5 Time Spent (min) 61
[2022-03-05] MEDS: NOREPINEPHRINE/D5W 4 MG/250 ML PLCT IV SCH ×2 (07:30→21:25)
--- NOTE | 2022-03-05 07:35 | CT Scan Report ---
CT OF THE HEAD WITHOUT CONTRAST CLINICAL HISTORY: AMS, acute change COMPARISON STUDY: Head CT February 08, 2022. CT DOSE: 1074.96 mGy.cm TECHNIQUE: Helical axial images of the head were obtained without IV contrast. Automated exposure con trol was utilized for the study. A dose lowering technique was utilized adhering to the principles o f ALARA. FINDINGS: This exam is compromised by motion artifact. No acute intracranial hemorrhage, midline shif t or mass effect is present. Mild dilatation of the lateral ventricles is unchanged since head CT of February 08, 2022 and likely due to atrophy. White matter hypodensities favor small vessel disease. No e vidence for acute territorial infarct. There is no acute calvarial fracture. IMPRESSION: 1. No acute intracranial hemorrhage. No CT evidence for acute territorial infarct. 2. Exam moderately compromised by motion artifact. ACT 112: Negative or not required by law. Electronically signed by: Stevan Ch M.D. 03/05/2022 7:33 AM
[2022-03-05] MEDS ORDERED: ALBUTEROL 0.5% NEB SOLN 2.5 MG/0.5 ML VIAL NEB STA (07:37)
[2022-03-05] MEDS ORDERED: DEXTROSE 50% 50 ML SYRINGE IV STA (07:37)
[2022-03-05 07:41] LABS: iSTAT Art Bld Gas pCO2 Correct 48 mmHg (35-46); iSTAT Art Bld Gas pH Corrected 7.244 (7.35-7.45); iSTAT Arterial Blood Gas HCO3 21 meg/L (19-24); iSTAT Arterial Blood Gas pCO2 46 mmHg (35-46); iSTAT Arterial Blood Gas pH 7.26 (7.35-7.45); iSTAT Arterial Blood Gas pO2 52 mmHg (80-95); iSTAT Arterial Blood Gas pO2 C 56; iSTAT Carbon Dioxide 22 mmol/L (24-31); iSTAT Hematocrit 29 % (37-47); iSTAT Hemoglobin 9.9 g/dl (12.0-16.0); iSTAT Potassium 5.5 mmol/L (3.3-5.0); iSTAT Site L Brachial; iSTAT Sodium 131 mmol/L (135-144)
[2022-03-05] MEDS ORDERED: ALBUTEROL 0.083% NEBU SOLN 3 ML VIAL ONE (07:43)
[2022-03-05] MEDS ORDERED: INSULIN HUMAN REGULAR PER UNIT 10 UNITS in SYRINGE 9.9 ML IV ONE (08:00)
[2022-03-05] MEDS ORDERED: MAGNESIUM SULFATE / D5W 1 GM/100 ML BAG IV ONE (08:23)
[2022-03-05] MEDS: PATIROMER CALCIUM SORBITEX 8.4 GM PACK PO SCH ×2 (08:32→10:32)
[2022-03-05] MEDS: INSULIN ASPART PER UNIT SC SCH ×4 (08:33→20:42)
[2022-03-05] MEDS ORDERED: dilTIAZem HCL 240 MG CAPCR PO SCH (09:00)
--- NOTE | 2022-03-05 09:41 | Ultrasound Report ---
ULTRASOUND KIDNEYS AND BLADDER CLINICAL HISTORY: Acute renal insufficiency. COMPARISON STUDY: Abdominal CT dated 02/08/2022. TECHNIQUE: Real-time, grayscale, and color flow sonography of the kidneys and bladder is performed. I mages are reviewed in the transverse and longitudinal planes. FINDINGS: Kidneys: The kidneys are atrophic. Echotexture is normal. The right kidney measures 8.8 cm in length and the left kidney measures 8.3 cm in length. There is no hydronephrosis. No shadowing renal calcul i are identified. There is no sonographic evidence of contour deforming renal mass lesion. No perinep hric fluid is identified. Bladder: The bladder is largely decompressed around a Adrian catheter not well evaluated. Upper abdomen: The gallbladder wall appears thickened. IMPRESSION: 1. The kidneys are atrophic and without hydronephrosis. 2. The bladder was decompressed by a Adrian catheter and not well evaluated. 3. The gallbladder wall appears thickened and edematous. Clinical correlation will be required. ACT 112: Negative or not required by law. Electronically signed by: Ab Farmer M.D. 03/05/2022 9:39 AM
[2022-03-05] MEDS: CYANOCOBALAMIN (B-12) 500 MCG TABLET PO SCH (10:30)
[2022-03-05] MEDS: ATORVASTATIN 40 MG TAB PO SCH (10:30)
[2022-03-05] MEDS: CETIRIZINE HCL 10 MG TABLET PO SCH (10:30)
[2022-03-05] MEDS: PANTOprazole 40 MG TAB PO SCH (10:31)
[2022-03-05] MEDS: FLUoxetine HCL 20 MG CAP PO SCH (10:31)
[2022-03-05] MEDS: FLUTICASONE/VILANTEROL 200/25MCG 14 PUFFS/INHALER INH SCH (10:31)
--- NOTE | 2022-03-05 12:39 | Cardiology Progress Note ---
Date of Service March 05, 2022 Assessment & Plan (1) Atrial fibrillation: (2) Anticoagulant long-term use: (3) Bradycardia: Plan 1. Paroxysmal atrial fibrillation: She has paroxysmal atrial fibrillation with intermittent rapid heart rates, and then spontaneously converted to sinus rhythm yesterday. We could consider antiarrhythmic therapy to maintain sinus rhythm although that is not necessarily effective. At this point I would continue to monitor. Anticoagulation should be considered. 2. Anticoagulation: She was on Eliquis 5 mg twice a day at home, the dose was reduced to 2.5 mg here (due to an increased creatinine) and now it is on hold. Over the long run she should be on anticoagulation, for the next several days that may not be essential and we will be considering pacemaker implantation on Monday. It may be reasonable to hold it at this point until after the pacemaker. 3. Bradycardia: She had an episode of profound bradycardia, there is no clear reason for this except that she was on a lot of medications for her tachycardia. 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 I recommended that we plan for pacemaker on Monday. In the meantime I would hold her rate controlling medications and if she has recurrent atrial fibrillation I would start intravenous amiodarone and not at a lot of rate controlling medications. We could add amiodarone now but that also will exacerbate bradycardia and I would prefer to hold off at least today. Admission and Anticipated Discharge Date Admission Date: March 03, 2022 Subjective Events of past 24 hours reviewed. She presented in rapid atrial fibrillation, she was started on increased medications for rate control and then spontaneously converted to sinus bradycardia around 1530 on March 04, 2022. Her heart rate was reasonably well controlled at that time, she was maintained on oral rate control medications and then at around 5 AM had profound bradycardia which was quite prolonged with a twelve-lead electrocardiogram showing a heart rate of just over 20 and a junctional escape rhythm. She was transferred to the ICU, he r medications are currently on hold and her rhythm has stabilized. At the time of my evaluation she is very confused but conversational, she currently is not oriented. She denies cardiovascular complaints however. Physical Exam Physical Exam: Constitutional: Alert, cooperative and in no distress. Not or iented. HEENT: Unremarkable Neck: No jugular venous distention, carotid pulses are normal and equal bilaterally without bruits. Pulmonary: Clear to auscultation bilaterally. Cardiac: Regular rhythm with no murmur, gallop or rub. Abdomen: Soft, nontender with normal bowel sounds. Extremities: No edema. Distal pulses intact. Neurologic: No focal findings. Gait was not tested. Skin: No rash, ecchymoses or petechiae. Results & Data ([facility]) Vital Signs (Past 12 Hours) Vital Signs Temp Pulse Pulse Resp BP BP Pulse Ox 03/05/22 07:48 62 22 95 03/05/22 06:56 53 L 23 97 03/05/22 06:51 104/29 L 03/05/22 06:51 35.4 C L 52 L 19 97 03/05/22 06:41 81/53 L 03/05/22 06:39 51 L 19 88 L 03/05/22 06:39 105/34 L 03/05/22 06:36 51 L 18 96 03/05/22 06:36 69/51 L 03/05/22 06:31 51 L 20 100 03/05/22 06:31 111/36 L 03/05/22 06:30 50 L 19 98 03/05/22 06:25 108/34 L 03/05/22 06:25 48 L 17 93 03/05/22 06:24 47 L 20 91 03/05/22 06:24 94/36 L 03/05/22 06:16 90/37 L 03/05/22 06:16 52 L 21 93 03/05/22 06:15 53 L 21 81 L 03/05/22 06:11 49 L 22 03/05/22 06:11 119/35 L 03/05/22 06:08 49 L 9 L 03/05/22 02:52 36.5 C 52 L 17 92/42 L 100 O2 Del Method O2 Flow Rate 03/05/22 07:48 Nasal Cannula 4 03/05/22 06:56 03/05/22 06:51 03/05/22 06:51 03/05/22 06:41 03/05/22 06:39 03/05/22 06:39 03/05/22 06:36 03/05/22 06:36 03/05/22 06:31 03/05/22 06:31 03/05/22 06:30 03/05/22 06:25 03/05/22 06:25 03/05/22 06:24 03/05/22 06:24 03/05/22 06:16 03/05/22 06:16 03/05/22 06:15 03/05/22 06:11 03/05/22 06:11 03/05/22 06:08 03/05/22 02:52 Nasal Cannula Laboratory Results Cardiac Enzymes 03/05/22 Range/Units 06:40 Troponin I High Sens 49.6 H D (0-14) pg/ml CBC 03/05/22 Range/Units 06:40 WBC 21.79 H D (4.8-10.8) K/ul RBC 3.50 L (3.93-5.22) M/uL Hgb 9.3 L (12.0-16.0) g/dl Hct 31.8 L (34.1-44.9) % Plt Count 344 (130-400) K/uL Neut # (Auto) 16.83 H (1.4-6.5) K/uL Lymph # (Auto) 3.10 (1.2-3.4) K/uL Yell # (Auto) 0.73 (0.24-0.82) K/uL Eos # (Auto) 0.02 (0-0.50) K/uL Baso # (Auto) 0.10 (0-0.2) K/uL Comprehensive Metabolic Panel 03/05/22 Range/Units 06:40 Sodium 135 L (136-145) mmol/L Potassium 6.1 H* D (3.5-5.1) mmol/L Chloride 97 L (98-107) mmol/L Carbon Dioxide 19 L (21-32) mmol/L BUN 46 H (6-23) mg/dl Creatinine 3.59 H D (0.6-1.2) mg/dl Glucose 194 H (70-99(Fasting)) mg/dl Calcium 8.1 L (8.5-10.1) mg/dl Intake and Output 03/04/22 03/05/22 03/05/22 22:59 06:59 14:59 Intake Total 460 / 1510 1000 / 1510 232.91 / 232.91 Output Total Balance 459 / 1509 1000 / 1509 232.91 / 232.91 Intake: IV 10 / 1060 1000 / 1060 232.91 / 232.91 Calcium Gluconate 10% 2,000 mg 70 / 70 In Dextrose 5% 50 ml @ 280 mls/ hr IV NOW ONE Rx#:[id number] DOPamine / D5W 400 mg In 250 ml 46.17 / 46.17 @ 5 MCG/KG/MIN 16.181 mls/hr IV .[id number] [facility] Rx#:[id number] Magnesium Sulfate / D5w 1 gm In 100 / 100 100 ml @ 50 mls/hr IV ONE ONE Rx#:[id number] Norepinephrine/D5w 4 mg In 250 16.74 / 16.74 ml @ 0.05 MCG/KG/MIN 16.181 mls /hr IV .[id number] [facility] Rx#: [id number] Sodium Chloride 0.9% 1000ML 1, 1000 / 1000 000 ml @ 999 mls/hr IV .Q1H1M [facility] Rx#:[id number] dilTIAZem HCL 125 mg In 10 / 10 Dextrose 5% 100 ml @ 5 MG/HR 5 mls/hr IV .Q24H ONE Rx#: [id number] Oral 450 / 450 Output: # Bowel Movements / Other: # Unmeasured Voids 1 Weight 86.3 kg Weight Measurement Method Built in [facility] Diagnostic Findings Telemetry: Telemetry reviewed, she was in rapid atrial fibrillation and perhaps atrial flutter at times (due to irregularity of her rhythm) with spontaneous conversion to sinus bradycardia and subsequent profound bradycardia as noted in the HPI. Currently in sinus rhythm. PG Care Time/CCT Total # of Minutes Spent Total Time Spent with Patient: Total time spent is greater than 50% in coordination of care (as documented) at patient's floor/unit and/or counseling patient: Coding Level of Care Code 58063 Subseq Hosp Care Lvl 3 Diagnoses Atrial fibrillation I48.91 Anticoagulant long-term use Z79.01 Bradycardia R00.1
[2022-03-05 13:39] LABS: Albumin Level 3.5 gm/dl (3.4-5.0); Bilirubin Direct 0.1 mg/dl (0-0.2); Bilirubin,Total 0.4 mg/dl (0.2-1.0); Total Protein 6.3 gm/dl (6.0-8.3)
[2022-03-05 13:42] LABS: BUN Creatinine Ratio 14.3 (10-20); Calcium 8.6 mg/dl (8.5-10.1); Creatinine Clr Calc Pharmacy 12.7 ml/min; Est GFR (African American) 13.6 ml/min; Est GFR (Non-African American) 11.8 ml/min; Potassium 4.7 mmol/L (3.5-5.1)
--- NOTE | 2022-03-05 15:34 | Electrocardiogram Report ---
Test Reason : Blood Pressure : / mmHG Vent. Rate : 063 BPM Atrial Rate : 063 BPM P-R Int : 136 ms QRS Dur : 086 ms QT Int : 448 ms P-R-T Axes : -27 054 096 degrees QTc Int : 458 ms Suspect low atrial rhythm Otherwise normal ECG When compared with ECG of 03-MAR-2022 13:36, Low right atrial rhythm has replaced Atrial fibrillation Vent. rate has decreased BY 75 BPM T wave inversion no longer evident in Lateral leads Confirmed by Aamir Flores ([id number]) on 03/05/2022 3:34:26 PM Referred By: REFERRED SELF Confirmed By:Aamir Flores
--- NOTE | 2022-03-05 15:58 | Electrocardiogram Report ---
Test Reason : Blood Pressure : / mmHG Vent. Rate : 022 BPM Atrial Rate : 024 BPM P-R Int : 000 ms QRS Dur : 092 ms QT Int : 644 ms P-R-T Axes : 000 106 105 degrees QTc Int : 389 ms Poor data quality, interpretation may be adversely affected Junctional bradycardia Incomplete right bundle branch block Abnormal ECG When compared with ECG of 04-MAR-2022 21:43, (unconfirmed) Junctional rhythm has replaced Sinus rhythm Vent. rate has decreased BY 41 BPM T wave inversion now evident in Anterior leads Confirmed by Aamir Flores ([id number]) on 03/05/2022 3:58:37 PM Referred By: REFERRED SELF Confirmed By:Aamir Flores
--- NOTE | 2022-03-05 16:05 | Electrocardiogram Report ---
Test Reason : Blood Pressure : / mmHG Vent. Rate : 063 BPM Atrial Rate : 063 BPM P-R Int : 144 ms QRS Dur : 088 ms QT Int : 498 ms P-R-T Axes : 063 066 103 degrees QTc Int : 509 ms Normal sinus rhythm Nonspecific ST and T wave abnormality Prolonged QT Abnormal ECG When compared with ECG of 05-MAR-2022 05:08, (unconfirmed) Sinus rhythm has replaced Junctional rhythm Vent. rate has increased BY 41 BPM Incomplete right bundle branch block is no longer Present Confirmed by Aamir Flores ([id number]) on 03/05/2022 4:04:45 PM Referred By: REFERRED SELF Confirmed By:Aamir Flores
--- NOTE | 2022-03-05 16:39 | XCELERA ---
[id number]
[2022-03-05 17:26] LABS: Appearance Urine Cloudy (Clear); Bacteria Urine Automated Negative (Negative); Bilirubin Urine Negative (Negative); Blood Urine Negative (Negative); Color Urine Yellow; Epithelial Cell Urine Auto >30 /lpf (0-5); Glucose Urine UA 1+ (Negative); Ketones Urine Trace (Negative); Leukocyte Esterase Urine Negative (Negative); Nitrite Urine Negative (Negative); Protein Urine 1+ (Negative); RBC Urine Automated 0-4 /hpf (0-4); Specific Gravity Urine 1.019 (1.000-1.030); Urobilinogen Urine Negative (Negative)
[2022-03-05 17:44] LABS: Amorphous Sediment Urine Present (None Prsent); Calcium Oxalate Crystals Urine Present (None Prsent)
[2022-03-05 17:58] LABS: Creatinine Urine Random 146.6 mg/dl
[2022-03-05] MEDS: MELATONIN 3 MG TAB PO PRN (20:44)
--- NOTE | 2022-03-05 21:39 | Hospitalist Progress Note ---
Date of Service March 05, 2022 Assessment & Plan (1) Atrial fibrillation: Plan: Atrial fibrillation in RVR in a 81 year old female w/ PMHx of HTN, HLD, DM, COPD, afib on Xarelto, and recent covid (s/p molupiravir) diagnosed late January. No longer having diarrhea, Admitted to PCU. Cardio recommended to stop diltiazem drip and place on diltiazem q6h with hold parameters Continue metoprolol with hold parameters. Patient was cardioverted. Continue home anticoagulation. Patient has been on Dig. Doubt cause is infection but will order inflammatory markers, procal, Early AM of 03/05 Patient devleoped bradycardia, hypotension, patient transferred to ICU. Placed on pressors. machine tool electrician consulted. (2) Hypertension: Plan: resume home meds (3) Hyperlipidemia: Plan: resume home meds (4) Diabetes mellitus: Plan: placed on glycemic control (5) COVID: Plan: Patient had history of this earlier in February. Admission and Anticipated Discharge Date Admission Date: March 03, 2022 Subjective Patient is confused. Review of Systems Review of Systems: Unobtainable due to cognitive status Physical Exam Physical Exam: The patient appeared with chronic respiratory failure but appears to be stable at this time Vital signs as documented. Head exam is normocephalic atraumatic Neck is without JVD, thyromegaly, or carotid bruits. Lungs are poor air movement no focal loss no wheezes Cardiac exam, Rhythm is regular.. Systolic ejection murmur at the right upper sternal border Abdominal exam reveals normal bowel sounds, soft non tender, no masses Extremities both pedal pulses are present Neurologic exam is alert and oriented, no focal loss of strength or sensation Skin is without bruises or rashes Psychologically is without concerns for anxiety or depression Results & Data Results & Data ([facility]) Vital Signs (Past 12 Hours) Vital Signs Temp Pulse Resp BP Pulse Ox 03/05/22 20:45 37.6 C H 78 20 96 03/05/22 20:45 125/61 03/05/22 20:31 115/46 L 03/05/22 20:31 37.7 C H 76 24 94 03/05/22 20:16 37.6 C H 78 22 91 03/05/22 20:16 150/66 H 03/05/22 20:00 37.6 C H 75 26 H 92 03/05/22 20:00 136/92 03/05/22 19:45 37.6 C H 74 22 91 03/05/22 19:45 136/64 03/05/22 19:30 37.6 C H 72 23 96 03/05/22 19:30 134/60 03/05/22 19:19 37.7 C H 75 22 96 03/05/22 19:19 134/87 03/05/22 19:00 37.7 C H 74 22 96 03/05/22 19:00 134/51 L 03/05/22 17:30 37.7 C H 74 22 96 03/05/22 17:15 37.7 C H 72 20 96 03/05/22 17:15 129/63 03/05/22 17:00 37.7 C H 72 17 98 03/05/22 17:00 125/66 03/05/22 16:47 139/54 L 03/05/22 16:47 37.7 C H 75 18 96 03/05/22 16:45 37.7 C H 72 20 95 03/05/22 16:31 37.7 C H 79 25 H 93 03/05/22 16:31 117/58 L 03/05/22 16:30 37.6 C H 77 23 82 L 03/05/22 16:17 37.6 C H 73 15 91 03/05/22 16:17 118/50 L 03/05/22 16:15 37.6 C H 71 19 99 03/05/22 16:00 37.6 C H 73 28 H 97 03/05/22 16:00 115/68 03/05/22 15:52 141/49 H 03/05/22 15:52 37.6 C H 73 99 03/05/22 15:51 37.5 C 70 100 03/05/22 15:51 122/104 H 03/05/22 15:45 37.5 C 72 21 92 03/05/22 15:32 37.5 C 73 23 91 03/05/22 15:32 153/62 H 03/05/22 15:30 37.4 C 71 28 H 98 03/05/22 15:15 37.4 C 69 18 99 03/05/22 15:02 37.4 C 68 21 97 08/27/22 15:02 117/37 L 03/05/22 15:00 37.4 C 69 22 99 03/05/22 14:46 37.4 C 74 28 H 88 L 03/05/22 14:46 130/55 L 03/05/22 14:45 37.4 C 74 25 H 93 03/05/22 14:31 145/57 H 03/05/22 14:31 37.3 C 67 22 99 03/05/22 14:30 37.3 C 67 29 H 98 03/05/22 14:16 37.3 C 73 32 H 98 03/05/22 14:16 121/87 03/05/22 14:15 37.3 C 73 16 99 03/05/22 14:01 37.2 C 66 20 99 03/05/22 14:01 133/44 L 03/05/22 14:00 37.2 C 66 23 100 03/05/22 13:46 37.2 C 68 17 98 03/05/22 13:46 126/51 L 03/05/22 13:45 37.2 C 70 21 100 03/05/22 13:32 37.1 C 65 22 100 03/05/22 13:32 113/56 L 03/05/22 13:30 37.1 C 66 14 98 03/05/22 13:16 142/76 H 03/05/22 13:16 37.1 C 66 22 100 03/05/22 13:15 37.1 C 65 26 H 98 03/05/22 13:00 37.0 C 64 24 100 03/05/22 12:46 116/50 L 03/05/22 12:46 37.0 C 65 19 100 03/05/22 12:45 37.0 C 63 14 99 03/05/22 12:30 36.9 C 64 17 100 03/05/22 12:16 118/67 03/05/22 12:16 36.8 C 64 20 100 03/05/22 12:15 36.8 C 63 18 100 03/05/22 12:01 127/58 L 03/05/22 12:01 36.8 C 64 16 100 03/05/22 12:00 36.7 C 64 17 100 03/05/22 11:46 36.7 C 63 21 100 03/05/22 11:46 137/54 L 03/05/22 11:45 36.7 C 63 15 100 03/05/22 11:30 36.6 C 62 24 100 03/05/22 11:16 36.5 C 63 19 100 03/05/22 11:16 126/58 L 03/05/22 11:15 36.5 C 60 14 100 03/05/22 11:02 138/39 L 03/05/22 11:02 36.5 C 64 22 82 L 03/05/22 11:00 36.5 C 63 18 82 L 03/05/22 10:46 128/57 L 03/05/22 10:46 36.5 C 61 20 100 03/05/22 10:45 36.5 C 61 14 100 03/05/22 10:30 36.4 C L 60 20 100 03/05/22 10:16 106/63 03/05/22 10:16 36.3 C L 63 15 89 L 03/05/22 10:15 36.3 C L 63 14 93 03/05/22 10:01 36.2 C L 61 18 100 03/05/22 10:01 139/96 03/05/22 10:00 36.2 C L 61 21 100 03/05/22 09:45 36.2 C L 61 19 100 PG Care Time/CCT Total # of Minutes Spent Total Time Spent with Patient: Total time spent is greater than 50% in coordination of care (as documented) at patient's floor/unit and/or counseling patient: Coding Level of Care Code 48315 Subseq Hosp Care Lvl 3 Diagnoses Atrial fibrillation I48.91 Hypertension I10 Hyperlipidemia E78.5 Diabetes mellitus E11.9 COVID U07.1 Time Spent (min) 35
[2022-03-06 00:08] LABS: BUN Creatinine Ratio 16.6 (10-20); Calcium 9.1 mg/dl (8.5-10.1); Creatinine Clr Calc Pharmacy 14.7 ml/min; Est GFR (African American) 16.3 ml/min; Est GFR (Non-African American) 14.1 ml/min; Magnesium 1.8 mg/dl (1.7-2.4); Phosphorus 5.3 mg/dl (2.5-4.9); Potassium 4.7 mmol/L (3.5-5.1)
[2022-03-06] MEDS: MAGNESIUM SULFATE / D5W 1 GM/100 ML BAG IV SCH ×2 (01:05→02:15)
[2022-03-06 05:36] LABS: Calcium 9.2 mg/dl (8.5-10.1); Est GFR (African American) 19.4 ml/min; Est GFR (Non-African American) 16.7 ml/min; Potassium 4.5 mmol/L (3.5-5.1)
[2022-03-06 05:37] LABS: Albumin Level 3.5 gm/dl (3.4-5.0); Bilirubin Direct 0.1 mg/dl (0-0.2); Bilirubin,Total 0.4 mg/dl (0.2-1.0); Magnesium 2.4 mg/dl (1.7-2.4); Phosphorus 4.5 mg/dl (2.5-4.9); Total Protein 6.4 gm/dl (6.0-8.3)
[2022-03-06 06:40] LABS: Basophils # (auto) 0.05 K/uL (0-0.2); Basophils % (auto) 0.3 %; Echinocytes 1+; Eosinophils # (auto) 0.06 K/uL (0-0.50); Eosinophils % (auto) 0.4 %; Hematocrit (blood only) 24.9 % (34.1-44.9); Hemoglobin 7.8 g/dl (12.0-16.0); Immature Granulocytes % (auto) 0.6 %; Lymphocytes # (auto) 1.87 K/uL (1.2-3.4); Lymphocytes % (auto) 12.1 %; Mean Corpuscular Hemoglobin 26.8 pg (25.0-34.0); Mean Corpuscular Hgb Conc 31.3 g/dL (32.0-36.0); Mean Corpuscular Volume 85.6 fL (80.0-100.0); Mean Platelet Volume 12.1 fL (9.4-12.3); Monocytes # (auto) 0.81 K/uL (0.24-0.82); Monocytes % (auto) 5.3 %; Neutrophils # (auto) 12.53 K/uL (1.4-6.5); Neutrophils % (auto) 81.3 %; Platelet Count 259 K/uL (130-400); Polychromasia 1+; RDW Coefficient of Variation 17.1 % (11.5-14.5); RDW Standard Deviation 52.7 fL (36.4-46.3); Red Blood Count 2.91 M/uL (3.93-5.22); White Blood Count 15.42 K/ul (4.8-10.8)
--- NOTE | 2022-03-06 07:26 | XRay Report ---
XR chest 1V portable CLINICAL HISTORY: Respiratory failure. COMPARISON STUDY: Chest radiograph March 05, 2022. FINDINGS: Right internal jugular [id number] is in place. There is no pneumothorax. Cardiomegaly is unchanged. Mild interstitial thickening persists. Trace right pleural effusion. IMPRESSION: 1. Persistent interstitial thickening which favors mild pulmonary edema. 2. Trace right pleural effusion. ACT 112: Negative or not required by law. Electronically signed by: Stevan Ch M.D. 03/06/2022 7:24 AM
--- NOTE | 2022-03-06 08:31 | Critical Care Progress Note ---
Date of Service March 06, 2022 Assessment & Plan (1) Cardiogenic shock: (2) Pulmonary hypertension: (3) Symptomatic bradycardia: (4) Acute and chronic respiratory failure with hypoxia: (5) Atrial fibrillation: (6) CHESTER (acute kidney injury): (7) Hyperkalemia: Plan Reason Critically Ill: 81-year-old female past medical history of AMechelle braun on Xarelto, chronic hypoxic respiratory failure on 4 L nasal cannula at home, hypertension, dyslipidemia, CKD presented to the hospital with A. fib with RVR but on the floor patient was found to be bradycardic and hypotensive transferred in the ICU to take care of symptomatic bradycardia Neuro - [facility] ICU: Negative --Metabolic encephalopathy--> improved Multifactorial Component of hypotension as well as bradycardia playing a role CT head 03/05/2022 negative for any intracranial hemorrhage or infarct Continue to monitor Cardiac - -- Symptomatic bradycardia with hypotension Continue with dopamine Additional Levophed for hypotension Avoid negative inotropic medication for the time being EKG shows junctional rhythm, hopefully there will be reversibility after the above measures --History of A. aparna Currently blood pressure medications on hold --Dyslipidemia On atorvastatin Respiratory - -- Acute on chronic hypoxic respiratory failure Continue with O2 supplementation to keep oxygen between 90-92% Consider BiPAP nightly and as needed shortness of breath GI - --Transaminitis Likely from shock liver Continue to trend Continue with pantoprazole RENAL/LYTES - --- CHESTER on CKD --> improving Follow-up urine lites Monitor BUN/creatinine Avoid nephrotoxic medications Strict ins and outs - Adrian in place ENDO - -- Diabetes type 2 Continue with ICU hypoglycemia protocol HEME - -- Normocytic anemia Monitor H&H ID - --No acute issues right now --Prophylaxis VTE: Eliquis on hold, IPC's GI: Pantoprazole Lines: Right IJ, peripheral, Adrian Diet: Cardiorenal Plan: In/out: -542, urine output 1050 Patient has been off dopamine and Levophed in for more than 24 hours. Patient's creatinine is improving, potassium is also within normal limit Continue to hold negative inotropic agents. Cardiology planning for pacemaker tomorrow Continue with Adrian. Discontinue IJ before downgrade Patient hemodynamically stable to be downgraded to a telemetry floor Case discussed with Dr. Jack Please note the above document was generated using voice recognition software. It may contain grammatical, syntax or spelling errors.Any formal questions or concerns about the content, text or information contained within the body of this dictation should be directly addressed to the provider for clarification. Admission and Anticipated Discharge Date Admission Date: March 03, 2022 Subjective Patient seen and examined at bedside. No acute distress, no adverse events overnight. Patient was saturating 98-99% on 4 L nasal cannula at rest I went down to 1 L she was still saturating 91-92% Denies any chest pain, no headache, no nausea, no vomiting Did complain of being thirsty. Review of Systems Review of Systems: All systems reviewed & are unremarkable except as noted in Subjective Physical Exam Physical Exam: Constitutional: No acute distress HEENT: EOMI, PERRLA, hard to hear Respiratory system: Decreased air entry bilaterally, no wheeze, no rhonchi, positive crackles bilateral lower lobes CVS: S1-S2 positive, no murmurs or gallops Abdomen: Soft, nontender, nondistended, positive bowel sounds x4 Extremities: +2 pulses bilaterally radialis/ dorsalis pedis, no cyanosis, +1 pitting edema bilateral lower extremity Neuro: Awake alert oriented to self Psych: Normal mood and affect G/U: Positive Adrian Skin: no rashes, warm and dry Lymphatic: no cervical or axillary lymphadenopathy Results & Data Results & Data ([facility]) Vital Signs (Past 12 Hours) Vital Signs Temp Pulse Resp BP Pulse Ox 03/06/22 08:01 36.2 C L 72 22 96 03/06/22 08:01 139/62 03/06/22 08:00 36.2 C L 68 17 97 03/06/22 07:00 36.6 C 67 26 H 98 03/06/22 07:00 144/51 H 03/06/22 06:00 36.5 C 68 22 97 03/06/22 06:00 138/53 L 03/06/22 05:00 36.5 C 74 26 H 94 03/06/22 05:00 147/57 H 03/06/22 00:00 74 03/06/22 04:00 36.5 C 68 16 94 03/06/22 04:00 143/53 H 03/06/22 03:01 36.7 C 69 20 94 03/06/22 03:01 140/58 L 03/06/22 02:00 37.0 C 74 20 100 03/06/22 02:00 156/56 H 03/06/22 01:00 37 C 74 23 94 03/06/22 01:00 141/57 H 03/06/22 00:00 37 C 76 24 93 03/06/22 00:00 135/69 03/05/22 23:00 75 21 94 03/05/22 23:00 143/52 H 03/05/22 22:00 37.5 C 76 17 98 03/05/22 22:00 133/86 03/05/22 21:00 37.6 C H 73 24 97 03/05/22 21:00 138/54 L 03/05/22 20:45 37.6 C H 78 20 96 03/05/22 20:45 125/61 03/05/22 20:31 115/46 L 03/05/22 20:31 37.7 C H 76 24 94 Laboratory Results 03/06/22 04:55 03/06/22 04:55 Coding Level of Care Code 86512 Subseq Hosp Care Lvl 3 Diagnoses Cardiogenic shock R57.0 Pulmonary hypertension I27.20 Symptomatic bradycardia R00.1 Acute and chronic respiratory failure with hypoxia J96.21 Atrial fibrillation I48.91 CHESTER (acute kidney injury) N17.9 Hyperkalemia E87.5
[2022-03-06] MEDS: INSULIN ASPART PER UNIT SC SCH ×4 (09:27→21:15)
--- NOTE | 2022-03-06 10:17 | Pharmacy Report ---
Pharmacy Glycemic Sign Off Nt - Date of Service March 06, 2022 - Assessment & Plan ASSESSMENT: * Pharmacy was consulted by Dr Jack on 03/03/22 for glycemic control and to write orders per [facility] inpatient glycemic control protocol. * Major changes made by pharmacy to antidiabetic regimen include: * initiation of Novolog regimen * Patient has been receiving/requiring 0 units of insulin per day for adequate glycemic control * BSGs ranging 132 - 173 mg/dl * Regimen has only required minor adjustments over the past 48hrs to achieve this level of control * Do not anticipate further changes in patient status that would quickly deteriorate glycemic control (i.e. patient to be NPO for upcoming procedure, steroids tapering, starting tube feedings, etc). * Please see recommendations for outpatient antidiabetic regimen below. PLAN FOR INPATIENT GLYCEMIC CONTROL: No changes needed to current regimen. * Continue NovoLog per scale ACHS/Q6hrs while NPO * Goal range = 120- 160 mg/dl * CF = 30 mg/dl/unit * CR = 1 unit for ever 10 g CHO consumed * Pharmacy is signing off of glycemic consult and will no longer be making adjustments to inpatient regimen. Please feel free to re-consult if needed. Thank you.
[2022-03-06] MEDS: PATIROMER CALCIUM SORBITEX 8.4 GM PACK PO SCH (11:06)
[2022-03-06] MEDS: FLUoxetine HCL 20 MG CAP PO SCH (11:07)
[2022-03-06] MEDS: CETIRIZINE HCL 10 MG TABLET PO SCH (11:07)
[2022-03-06] MEDS: FLUTICASONE/VILANTEROL 200/25MCG 14 PUFFS/INHALER INH SCH (11:08)
[2022-03-06] MEDS: CYANOCOBALAMIN (B-12) 500 MCG TABLET PO SCH (11:08)
[2022-03-06] MEDS: PANTOprazole 40 MG TAB PO SCH (11:08)
[2022-03-06] MEDS: ATORVASTATIN 40 MG TAB PO SCH (11:08)
[2022-03-06 12:00] LABS: Hematocrit (blood only) 25.8 % (34.1-44.9); Hemoglobin 7.9 g/dl (12.0-16.0)
--- NOTE | 2022-03-06 12:34 | Cardiology Progress Note ---
Date of Service March 06, 2022 Assessment & Plan (1) Atrial fibrillation: (2) Anticoagulant long-term use: (3) Bradycardia: Plan 1. Paroxysmal atrial fibrillation: She has paroxysmal atrial fibrillation with intermittent rapid heart rates, and then spontaneously converted to sinus rhythm on January 02, 2022. We could consider antiarrhythmic therapy to maintain sinus rhythm although that is not necessarily effective. Anticoagulation should be considered. 2. Anticoagulation: She was on Eliquis 5 mg twice a day at home, the dose was reduced to 2.5 mg here (due to an increased creatinine) and now it is on hold. Over the long run she should be on anticoagulation, for the next several days that may not be essential and we will be considering pacemaker implantation on Monday. It may be reasonable to hold anticoagulation at this point and restart after the pacemaker. 3. Bradycardia: She had an episode of profound bradycardia, there is no clear reason for this except that she was on a lot of medications for control of her tachycardia. I think it is clear that she has tachybradycardia syndrome with profound bradycardia and she will need a pacemaker. I recommended that we plan for pacemaker on Monday. She is agreeable to this. In the meantime I would hold her rate controlling medications and if she has recurrent atrial fibrillation I would start intravenous amiodarone and not at a lot of other rate controlling medications. We could add amiodarone now but that also will exacerbate bradycardia and I would prefer to hold off at least today. Admission and Anticipated Discharge Date Admission Date: March 03, 2022 Subjective She is feeling better today and she is very alert and oriented as well as conversational. She has no lightheadedness or dizziness and no cardiovascular complaints. Physical Exam Physical Exam: Constitutional: Alert, cooperative and in no distress. HEENT: Unremarkable Neck: No jugular venous distention, carotid pulses are normal and equal bilaterally without bruits. Pulmonary: Clear to auscultation bilaterally. Cardiac: Regular rhythm with no murmur, gallop or rub. Abdomen: Soft, nontender with normal bowel sounds. Extremities: No edema. Distal pulses intact. Neurologic: She is alert and oriented today. No focal findings. Gait was not tested. Skin: No rash, ecchymoses or petechiae. Results & Data ([facility]) Vital Signs (Past 12 Hours) Vital Signs Temp Pulse Resp BP Pulse Ox O2 Del Method O2 Flow Rate 03/06/22 10:01 36.4 C L 70 18 95 03/06/22 10:01 142/52 H 03/06/22 10:00 36.4 C L 69 18 95 03/06/22 09:00 36.4 C L 69 21 97 03/06/22 09:00 141/56 H 03/06/22 08:30 Nasal Cannula 4 03/06/22 08:01 36.2 C L 72 22 96 03/06/22 08:01 139/62 03/06/22 08:00 36.2 C L 68 17 97 03/06/22 07:00 36.6 C 67 26 H 98 03/06/22 07:00 144/51 H 03/06/22 06:00 36.5 C 68 22 97 03/06/22 06:00 138/53 L 03/06/22 05:00 36.5 C 74 26 H 94 03/06/22 05:00 147/57 H 03/06/22 04:00 36.5 C 68 16 94 03/06/22 04:00 143/53 H 03/06/22 03:01 36.7 C 69 20 94 03/06/22 03:01 140/58 L 03/06/22 02:00 37.0 C 74 20 100 03/06/22 02:00 156/56 H 03/06/22 01:00 37 C 74 23 94 03/06/22 01:00 141/57 H Laboratory Results Cardiac Enzymes 03/05/22 03/06/22 Range/Units 11:08 04:55 AST 451 H 475 H (13-39) U/L CBC 03/06/22 03/06/22 Range/Units 04:55 11:41 WBC 15.42 H (4.8-10.8) K/ul RBC 2.91 L (3.93-5.22) M/uL Hgb 7.8 L 7.9 L (12.0-16.0) g/dl Hct 24.9 L 25.8 L (34.1-44.9) % Plt Count 259 (130-400) K/uL Neut # (Auto) 12.53 H (1.4-6.5) K/uL Lymph # (Auto) 1.87 (1.2-3.4) K/uL [place] # (Auto) 0.81 (0.24-0.82) K/uL Eos # (Auto) 0.06 (0-0.50) K/uL Baso # (Auto) 0.05 (0-0.2) K/uL Comprehensive Metabolic Panel 03/05/22 03/05/22 03/05/22 Range/Units 11:08 11:08 23:12 Sodium 135 L 133 L (136-145) mmol/L Potassium 4.7 D 4.7 (3.5-5.1) mmol/L Chloride 97 L 96 L (98-107) mmol/L Carbon Dioxide 26 27 (21-32) mmol/L BUN 49 H 49 H (6-23) mg/dl Creatinine 3.42 H 2.95 H D (0.6-1.2) mg/dl Glucose 134 H 104 H (70-99(Fasting)) mg/dl Calcium 8.6 9.1 (8.5-10.1) mg/dl Direct Bilirubin 0.1 (0-0.2) mg/dl AST 451 H (13-39) U/L ALT 477 H (7-52) U/L Alkaline Phosphatase 53 (34-104) U/L Total Protein 6.3 (6.0-8.3) gm/dl Albumin 3.5 (3.4-5.0) gm/dl 03/06/22 Range/Units 04:55 Sodium 134 L (136-145) mmol/L Potassium 4.5 (3.5-5.1) mmol/L Chloride 98 (98-107) mmol/L Carbon Dioxide 27 (21-32) mmol/L BUN 46 H (6-23) mg/dl Creatinine 2.56 H D (0.6-1.2) mg/dl Glucose 104 H (70-99(Fasting)) mg/dl Calcium 9.2 (8.5-10.1) mg/dl Direct Bilirubin 0.1 (0-0.2) mg/dl AST 475 H (13-39) U/L ALT 514 H (7-52) U/L Alkaline Phosphatase 58 (34-104) U/L Total Protein 6.4 (6.0-8.3) gm/dl Albumin 3.5 (3.4-5.0) gm/dl Intake and Output 03/05/22 03/06/22 03/06/22 22:59 06:59 14:59 Intake Total 0 / 541.243 158.333 / 541.243 Output Total 350 / 1050 700 / 1050 Balance -350 / -508.757 -541.667 / -508.757 Intake: IV 0 / 391.243 158.333 / 391.243 DOPamine / D5W 400 mg In 250 ml 0 / 46.17 @ 0 MCG/KG/MIN IV .Q0M [facility] Rx# :[id number] Magnesium Sulfate / D5w 1 gm In 158.333 / 158.333 100 ml @ 50 mls/hr IV Q2H [facility] Rx#:[id number] Norepinephrine/D5w 4 mg In 250 0 / 16.74 ml @ 0.05 MCG/KG/MIN 16.181 mls /hr IV .[id number] [facility] Rx#: [id number] Output: Urine Amount (Catheter) 350 / 1050 700 / 1050 Adrian/Indwelling 350 / 1050 700 / 1050 Other: Weight 86.5 kg Weight Measurement Method Built in [facility] Diagnostic Findings Telemetry: Sinus rhythm, no further bradycardia. PG Care Time/CCT Total # of Minutes Spent Total Time Spent with Patient: Total time spent is greater than 50% in coordination of care (as documented) at patient's floor/unit and/or counseling patient: Coding Level of Care Code 58794 Subseq Hosp Care Lvl 3 Diagnoses Atrial fibrillation I48.0 Atrial fibrillation type: paroxysmal Anticoagulant long-term use Z79.01 Bradycardia R00.1 (1) Atrial fibrillation Atrial fibrillation type: paroxysmal Qualified Code(s): I48.0 - Paroxysmal atrial fibrillation
[2022-03-06] MEDS: NOREPINEPHRINE/D5W 4 MG/250 ML PLCT IV SCH (15:16)
--- NOTE | 2022-03-06 20:36 | Electrocardiogram Report ---
Test Reason : Blood Pressure : / mmHG Vent. Rate : 073 BPM Atrial Rate : 073 BPM P-R Int : 158 ms QRS Dur : 090 ms QT Int : 420 ms P-R-T Axes : 091 049 070 degrees QTc Int : 462 ms Normal sinus rhythm Nonspecific ST abnormality Abnormal ECG When compared with ECG of 05-MAR-2022 08:43, No significant change Confirmed by Aamir Flores ([id number]) on 03/06/2022 8:35:51 PM Referred By: REFERRED SELF Confirmed By:Aamir Flores
[2022-03-06] MEDS: MELATONIN 3 MG TAB PO PRN (21:15)
--- NOTE | 2022-03-06 21:19 | Hospitalist Progress Note ---
Date of Service March 06, 2022 Assessment & Plan (1) Atrial fibrillation: Plan: Atrial fibrillation in RVR in a 81 year old female w/ PMHx of HTN, HLD, DM, COPD, afib on Xarelto, and recent covid (s/p molupiravir) diagnosed late January. No longer having diarrhea, Admitted to PCU. Cardio recommended to stop diltiazem drip and place on diltiazem q6h with hold parameters Continue metoprolol with hold parameters. Patient was cardioverted. Continue home anticoagulation. Patient has been on Dig. Doubt cause is infection but will order inflammatory markers, procal, Early AM of 03/05 Patient developed bradycardia, hypotension, patient transferred to ICU. Placed on pressors. supervisor public message service consulted. On 03/06 off pressors. initial plan was to downgrade, however, due to risk of her going back to RVR, cardio would prefer that she stays in the ICU overnight. (2) Hypertension: Plan: resume home meds (3) Hyperlipidemia: Plan: resume home meds (4) Diabetes mellitus: Plan: placed on glycemic control (5) COVID: Plan: Patient had history of this earlier in February. Admission and Anticipated Discharge Date Admission Date: March 03, 2022 Subjective Patient reports feeling well. She is aware of the pacemaker being placed tomorrow. Review of Systems Review of Systems: All systems reviewed & are unremarkable except as noted in HPI & below Physical Exam Physical Exam: The patient appeared with chronic respiratory failure but appears to be stable at this time Vital signs as documented. Head exam is normocephalic atraumatic Neck is without JVD, thyromegaly, or carotid bruits. Lungs are poor air movement no focal loss no wheezes Cardiac exam, Rhythm is regular.. Systolic ejection murmur at the right upper s ternal border Abdominal exam reveals normal bowel sounds, soft non tender, no masses Extremities both pedal pulses are present Neurologic exam is alert and oriented, no focal loss of strength or sensation Skin is without bruises or rashes Psychologically is without concerns for anxiety or depression Results & Data Results & Data ([facility]) Vital Signs (Past 12 Hours) Vital Signs Temp Pulse Resp BP Pulse Ox O2 Del Method O2 Flow Rate 03/06/22 20:00 37.4 C 81 23 98 03/06/22 20:00 161/65 H 03/06/22 19:01 161/65 H 03/06/22 19:01 37.5 C 78 26 H 97 03/06/22 20:11 Nasal Cannula 2 03/06/22 18:01 160/69 H 03/06/22 18:01 37.6 C H 78 17 100 03/06/22 18:00 37.6 C H 77 20 100 03/06/22 17:00 37.4 C 75 28 H 100 03/06/22 17:00 156/56 H 03/06/22 16:00 37.2 C 83 19 98 03/06/22 16:00 131/51 L 03/06/22 15:01 37.0 C 72 23 99 03/06/22 15:01 161/61 H 03/06/22 15:00 37.0 C 74 16 100 03/06/22 14:00 36.9 C 68 19 100 03/06/22 14:00 152/56 H 03/06/22 13:00 37.0 C 72 21 100 03/06/22 13:00 139/52 L 03/06/22 12:01 36.8 C 80 23 98 03/06/22 12:01 152/56 H 03/06/22 12:00 36.8 C 80 25 H 99 03/06/22 11:00 36.5 C 71 29 H 95 03/06/22 11:00 151/57 H 03/06/22 10:01 36.4 C L 70 18 95 03/06/22 10:01 142/52 H 03/06/22 10:00 36.4 C L 69 18 95 PG Care Time/CCT Total # of Minutes Spent Total Time Spent with Patient: Total time spent is greater than 50% in coordination of care (as documented) at patient's floor/unit and/or counseling patient: Coding Level of Care Code 29247 Subseq Hosp Care Lvl 3 Diagnoses Atrial fibrillation I48.0 Atrial fibrillation type: paroxysmal Hypertension I10 Hyperlipidemia E78.5 Diabetes mellitus E11.9 COVID U07.1 (1) Atrial fibrillation Atrial fibrillation type: paroxysmal Qualified Code(s): I48.0 - Paroxysmal atrial fibrillation
[2022-03-07] MEDS ORDERED: hydrALAZINE HCL 20 MG/ML VIAL IV ONE (05:06)
[2022-03-07] MEDS: NOREPINEPHRINE/D5W 4 MG/250 ML PLCT IV SCH (05:11)
[2022-03-07 05:17] LABS: Basophils # (auto) 0.07 K/uL (0-0.2); Basophils % (auto) 0.7 %; Eosinophils # (auto) 0.14 K/uL (0-0.50); Eosinophils % (auto) 1.3 %; Hemoglobin 7.5 g/dl (12.0-16.0); Immature Granulocytes # (auto) 0.06 K/uL (0.00-0.02); Immature Granulocytes % (auto) 0.6 %; Lymphocytes # (auto) 1.93 K/uL (1.2-3.4); Mean Corpuscular Hemoglobin 26.1 pg (25.0-34.0); Mean Corpuscular Volume 87.1 fL (80.0-100.0); Mean Platelet Volume 12.1 fL (9.4-12.3); Monocytes # (auto) 0.94 K/uL (0.24-0.82); Monocytes % (auto) 8.7 %; Neutrophils # (auto) 7.61 K/uL (1.4-6.5); Neutrophils % (auto) 70.7 %; Platelet Count 273 K/uL (130-400); RDW Coefficient of Variation 17.2 % (11.5-14.5); Red Blood Count 2.87 M/uL (3.93-5.22); White Blood Count 10.75 K/ul (4.8-10.8)
[2022-03-07] MEDS ORDERED: ceFAZolin 330 MG/ML 1 GM VIAL IV SCH (06:00)
[2022-03-07 06:22] LABS: BUN Creatinine Ratio 21.5 (10-20); Calcium 8.9 mg/dl (8.5-10.1); Creatinine Clr Calc Pharmacy 24.6 ml/min; Est GFR (African American) 30.3 ml/min; Est GFR (Non-African American) 26.1 ml/min; Phosphorus 3.6 mg/dl (2.5-4.9); Potassium 4.5 mmol/L (3.5-5.1)
[2022-03-07 06:26] LABS: Ovalocytes 1+
[2022-03-07] MEDS ORDERED: AMIODARONE / D5W 360 MG/200 ML BAG IV SCH (06:30)
[2022-03-07] MEDS ORDERED: AMIODARONE / D5W 360 MG/200 ML BAG IV ONE (06:30)
[2022-03-07] MEDS ORDERED: 0.2 MICRON FILTER SET 1 EACH IV ONE (06:30)
[2022-03-07] MEDS ORDERED: AMIODARONE / D5W 150 MG/100 ML BAG IV STA (06:30)
[2022-03-07] MEDS ORDERED: AMIODARONE 150MG / 100ML D5W IV ONE (06:33)
[2022-03-07] MEDS ORDERED: AMIODARONE 360MG / 200ML D5W IV ONE (06:33)
--- NOTE | 2022-03-07 07:21 | Critical Care Progress Note ---
Date of Service March 07, 2022 Assessment & Plan (1) Cardiogenic shock: (2) Pulmonary hypertension: (3) Symptomatic bradycardia: (4) Acute and chronic respiratory failure with hypoxia: (5) Atrial fibrillation: (6) CHESTER (acute kidney injury): (7) Hyperkalemia: Plan Reason Critically Ill: 81-year-old female past medical history of PAF on Eliquis, chronic hypoxic respiratory failure on 4 L nasal cannula at home, hypertension, dyslipidemia, CKD presented to the hospital with AF with RVR but on the floor patient was found to be bradycardic and hypotensive transferred in the ICU to take care of symptomatic bradycardia Neuro - [facility] ICU: Negative --Metabolic encephalopathy--> improved Multifactorial- component of hypotension as well as bradycardia playing a role CT head 03/05/2022 negative for any intracranial hemorrhage or infarct Continue to monitor Cardiac - --Atrial fibrillation with rapid ventricular response -Pt known to have PAF, AF w/ RVR triggered on 03/07, suspect due to pt's rate control medications being held for bradycardia -IV amiodarone initiated for rhythm control -Cardiology following- avoid AV vaughn medications, planned pacemaker insertion today -Holding pt's home Eliquis pending pacemaker placement -HRs largely in 120s, still in atrial fibrillation -Continue monitoring -Symptomatic bradycardia with hypotension -> resolved -Off pressors (dopamine, Levophed) as of 03/06 -BP at baseline currently --Dyslipidemia On atorvastatin at home- held due to possible hepatotoxic injury Respiratory - -Acute on chronic hypoxic respiratory failure -Continue with O2 supplementation to keep oxygen between 90-92% -Consider BiPAP nightly and as needed shortness of breath -Saturating well on home 3L NC -Apparent history of COPD but no PFTs in chart GI - --Transaminitis Likely from shock liver AST/ALT 475/514 today Continue to trend CMP Avoid hepatotoxic medications- holding pt's statin, Tylenol PRN -Monitor for hepatotoxicity while on amiodarone Continue pantoprazole (home medication is omeprazole) RENAL/LYTES - --- CHESTER on CKD4 --> improving -Improving, Cr 2.6 to 1.8 today -Adequate UOP- 2L output over past day, -1.5L balance, euvolemic on exam -Trend BMP -Avoid nephrotoxic medications - Adrian in place ENDO - -- Diabetes type 2 Continue with ICU hypoglycemia protocol HEME - -- Normocytic anemia -Hgb 9.3 on 03/05, 7.9 on 03/06 -7.9 to 7.5 today -Low concern for acute blood loss at this time as pt is hemodynamically stable, asymptomatic -Further anemia workup added to AM labs- reticulocyte count, haptoglobin, iron studies -Trend CBC ID - --No acute issues right now - Receiving preoperative Ancef for pacemaker --Prophylaxis VTE: Eliquis on hold, SCDs GI: Pantoprazole Lines: Right IJ, peripheral, Adrian Diet: NPO for pacemaker, otherwise cardiorenal PT/OT: to be ordered after pt's pacemaker procedure to assist in disposition planning Admission and Anticipated Discharge Date Admission Date: March 03, 2022 Supervising Physician Co-Signing Physician Notes Patient seen and examined. EMR reviewed. Discussed on multidisciplinary rounds and with bedside critical care nurse as well as with family practice resident. Agree with assessment plan as noted. Patient was to be downgraded yesterday but this morning developed atrial fibrillation with rapid ventricular response. She was initiated back on amiodarone infusion. She is pending permanent pacemaker implantation later today for sick sinus syndrome/tachybradycardia syndrome. She is asymptomatic at this point time. Continue to hold anticoagulation and AV anne blocking agents. Once pacemaker in place, can be more aggressive. We will need to restart anticoagulation after pacemaker. N.p.o. for procedure. Continue to trend liver function test. Avoid additional acetaminophen. Suspect related to potential of congestive hepatopathy or shock liver. Will discontinue Adrian once pacemaker is placed. Will need PT OT consults and increase activity out of bed to chair once pacemaker placed. Anemia of unclear etiology. This appears to be somewhat chronic dating back over 3 months. She has not had work-up previously. Unclear when her last colonoscopy was performed. Recommend checking iron stores and reticulocyte count to evaluate for bone marrow issues. Check haptoglobin although hemolysis felt to be less likely. Hold transfusion unless hemoglobin less than 7 Patient can be transferred to the floor once pacemaker placed and critical care services will sign off. Feel free to contact us with additional questions or concerns. Subjective Around 0600 today, pt noticed to go into atrial fibrillation with HR to 120s- 140s. EKG confirmed atrial flutter. Started on IV amiodarone. Pt did not have any symptoms during this time On evaluation, pt denies any acute complaints. Interview limited by pt's hearing difficulty. Review of Systems Review of Systems: All systems reviewed & are unremarkable except as noted in Subjective Physical Exam Physical Exam: Constitutional: Alert, cooperative and in no distress. +Significant hearing impairment HEENT: Unremarkable Neck: No jugular venous distention, carotid pulses are normal and equal bilaterally without bruits. Pulmonary: Slightly diminished lung sounds on inspiration, no crackles or wheezes noted, no increased work of breathing Cardiac: Irregular rhythm, tachycardic, no murmurs noted Abdomen: Soft, nontender with normal bowel sounds. Extremities: No edema. Distal pulses intact. Neurologic: She is alert and oriented today No focal findings. Gait was not tested. Skin: No rash, ecchymoses or petechiae. Results & Data Results & Data ([facility]) Vital Signs (Past 12 Hours) Vital Signs Temp Pulse Resp BP Pulse Ox O2 Del Method O2 Flow Rate 03/07/22 05:34 36.8 C 74 24 99 03/07/22 05:34 160/79 H 03/07/22 05:06 182/71 H 03/07/22 05:06 36.8 C 76 21 99 03/07/22 05:01 36.8 C 75 22 100 03/07/22 05:01 189/73 H 03/07/22 04:00 36.9 C 67 19 158/54 H 99 03/07/22 03:00 36.9 C 76 18 99 03/07/22 03:00 172/72 H 03/07/22 02:00 36.9 C 71 15 100 03/07/22 02:00 155/74 H 03/07/22 00:00 65 03/07/22 00:00 36.9 C 70 22 100 03/07/22 00:00 149/82 H 03/06/22 23:00 37.0 C 67 19 100 03/06/22 23:00 151/65 H 03/06/22 22:00 37.3 C 70 22 100 03/06/22 22:00 154/65 H 03/06/22 21:00 37.4 C 79 31 H 99 03/06/22 21:00 162/65 H 03/06/22 20:00 37.4 C 81 23 98 03/06/22 20:00 161/65 H 03/06/22 20:11 Nasal Cannula 2 Resident Activity Tracking Resident Involvement: Resident Care Provided Care Provided: Adult Hospital Medicine (1) Atrial fibrillation Atrial fibrillation type: paroxysmal Qualified Code(s): I48.0 - Paroxysmal atrial fibrillation
[2022-03-07] MEDS: INSULIN ASPART PER UNIT SC SCH ×4 (08:52→20:32)
[2022-03-07] MEDS: FLUTICASONE/VILANTEROL 200/25MCG 14 PUFFS/INHALER INH SCH (09:28)
[2022-03-07] MEDS: ATORVASTATIN 40 MG TAB PO SCH (09:28)
[2022-03-07] MEDS: PANTOprazole 40 MG TAB PO SCH (09:28)
[2022-03-07] MEDS: FLUoxetine HCL 20 MG CAP PO SCH (09:28)
[2022-03-07] MEDS: CYANOCOBALAMIN (B-12) 500 MCG TABLET PO SCH (09:28)
[2022-03-07] MEDS: CETIRIZINE HCL 10 MG TABLET PO SCH (09:28)
--- NOTE | 2022-03-07 09:55 | Billing Data ---
Date of Service March 07, 2022 Coding Level of Care Code 38358 Subseq Hosp Care Lvl 3
--- NOTE | 2022-03-07 11:40 | Pre Anesthesia Assessment ---
Date of Service March 07, 2022 Pre Sedation Assessment Vital Signs Temp Pulse Resp BP Pulse Ox O2 Del Method O2 Flow Rate 03/07/22 08:00 36.8 C 126 H 23 96 3 03/07/22 08:00 143/100 H 03/07/22 07:00 36.7 C 138 H 29 H 97 03/07/22 07:00 132/79 3 03/07/22 06:42 36.7 C 120 H 20 99 03/07/22 06:42 145/68 H 03/07/22 06:21 36.7 C 140 H 21 98 03/07/22 06:21 124/68 03/07/22 06:00 36.7 C 81 22 97 03/07/22 06:00 177/72 H 03/07/22 07:59 Nasal Cannula 3 03/07/22 05:34 36.8 C 74 24 99 03/07/22 05:34 160/79 H 03/07/22 05:06 182/71 H 03/07/22 05:06 36.8 C 76 21 99 03/07/22 05:01 36.8 C 75 22 100 03/07/22 05:01 189/73 H 03/07/22 04:00 36.9 C 67 19 158/54 H 99 03/07/22 03:00 36.9 C 76 18 99 03/07/22 03:00 172/72 H 03/07/22 02:00 36.9 C 71 15 100 03/07/22 02:00 155/74 H 03/07/22 00:00 65 03/07/22 00:00 36.9 C 70 22 100 03/07/22 00:00 149/82 H 03/06/22 23:00 37.0 C 67 19 100 03/06/22 23:00 151/65 H 03/06/22 22:00 37.3 C 70 22 100 03/06/22 22:00 154/65 H 03/06/22 21:00 37.4 C 79 31 H 99 03/06/22 21:00 162/65 H 03/06/22 20:00 37.4 C 81 23 98 03/06/22 20:00 161/65 H 03/06/22 19:01 161/65 H 03/06/22 19:01 37.5 C 78 26 H 97 03/06/22 20:11 Nasal Cannula 2 03/06/22 18:01 160/69 H 03/06/22 18:01 37.6 C H 78 17 100 03/06/22 18:00 37.6 C H 77 20 100 03/06/22 17:00 37.4 C 75 28 H 100 03/06/22 17:00 156/56 H 03/06/22 16:00 37.2 C 83 19 98 03/06/22 16:00 131/51 L 03/06/22 15:01 37.0 C 72 23 99 03/06/22 15:01 161/61 H 03/06/22 15:00 37.0 C 74 16 100 03/06/22 14:00 36.9 C 68 19 100 03/06/22 14:00 152/56 H 03/06/22 13:00 37.0 C 72 21 100 03/06/22 13:00 139/52 L 03/06/22 12:01 36.8 C 80 23 98 03/06/22 12:01 152/56 H 03/06/22 12:00 36.8 C 80 25 H 99 Cardiovascular + tachycardic and + irregularly irregular Respiratory + respiratory effort normal Pre-Sedation Airway Assessment Smoking Status: Former smoker Hx Sleep Apnea: No Hx Difficult Intubation: No Short, Thick Neck: No Thyromental Distance: > or= 3.5 Finger Breadths Oral Cavity: + WNL Mallampati Class: III ASA: ASA3 Procedure Planning Contraindications for Sedation: none Current Medications Reviewed: Yes Notes The planned sedation has been discussed with the patient. Informed Consent was obtained. I have identified the patient, determined the appropriateness of sedation and have assessed the patient immediately prior to the procedure. All medicine(s) and interventions are by my order.
[2022-03-07] MEDS ORDERED: VANCOMYCIN HCL 1000MG/20ML VIAL ONE (11:45)
[2022-03-07] MEDS ORDERED: WATER, STERILE FOR INJ 10 ML VIAL ONE (11:45)
[2022-03-07] MEDS ORDERED: LIDOCAINE 1% LOCAL 20 ML VIAL ONE (11:45)
[2022-03-07] MEDS ORDERED: BUPIVACAINE 0.25% 30 ML VIAL ONE (11:46)
[2022-03-07] MEDS ORDERED: ceFAZolin 330 MG/ML 1 GM VIAL ONE (12:00)
[2022-03-07] MEDS ORDERED: MIDAZOLAM HCL 5 MG/ML 1 ML VIAL ONE (12:00)
[2022-03-07] MEDS ORDERED: fentaNYL citrate 100 MCG/2 ML VIAL ONE (12:00)
--- NOTE | 2022-03-07 13:03 | Electrophysiology Report ---
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 Attempts at rate control led to severe bradycardia requiring pressor support. 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 The patient is currently in sinus rhythm and wished to maintain AV synchrony. Dual-chamber device was therefore selected. Procedure in detail: The patient was informed of the risks benefits and alternatives to the intended procedure and she wished to proceed. She was taken to the electrophysiology suite in a fasting state. A preoperative antibiotic had been administered. The patient was monitored electrocardiographically throughout today's procedure and conscious sedation was administered per protocol. The left upper pectoral area is prepped and draped in usual sterile fashion. This area was anesthetized using subcutaneous administration of a xylocaine solution. An incision was made at this site and carried down to the prepectoralis fascia using sharp dissection. Electrocautery was also employed for dissection as well as for hemostasis. A device pocket was fashioned tissues above the pectoralis muscle. Subsequent to this maneuver the left axillary vein was accessed using modified Seldinger technique. Sheath was placed over guidewire and used to facilitate passage of a guiding catheter for mapping of the interventricular septum. Once a suitable location was identified the ventricular lead was advanced into the interventricular septum. Adequate sensing and threshold parameters were obtained prior to removal of the guiding catheter and sheath. The proximal portion of the lead was then sutured to the prepectoralis fascia using nonabsorbable suture. Sheath was placed over the remaining guidewire and used to facilitate passage of a pacing lead to the right atrium under fluoroscopic guidance. Adequate sensing and threshold parameters were obtained prior to acti ve fixation of this lead to the endocardial surface. The proximal portion of lead was then sutured to the prepectoralis fascia using nonabsorbable suture. The device pocket was irrigated with antibiotic solution. The leads were then attached to the device. The device and leads were then placed in the pocket and pocket was closed in 3 layers of absorbable suture. Steri-Strips and sterile dressing were applied. The device was tested noninvasively prior to conclusion the procedure. The patient tolerated procedure well there no immediate complications. Equipment used: New pulse generator: [employer] Hospitalist [employer]. Model number: [id number] serial number [id number] Right atrial lead: [employer] Hospitalist [employer]. Model number: [id number] serial number [id number] Right ventricular lead: [employer] Medicine Hospitalist [employer]. Model number: [id number] serial number [id number] Measured data: Right atrial lead: P waves measure 1.1 mV. Pacing threshold was 0.75 V at 0.4 ms with a pacing impedance of 342 ohms Right ventricular lead: R waves measured 6.4 mV in the unipolar configuration. Pacing threshold was 0.5 V at 0.4 ms with a pacing impedance of 779 ohms Impression: Successful implantation of dual-chamber permanent pacemaker with left bundle pacing lead [facility] Electrophysiology codes Pacing Procedure 1: Pacin Insert/Replace Pacer A & V PG Moderate Sedation Codes Moderate Sedation Codes Procedure 1: Sedation/Anesthesia: 42682 Mod Sedation by the same physician;Init15 Min Child Age 5 & Up Procedure 2: Sedation/Anesthesia: 56030 Mod Sedation by the same physician; Ea [id number] Minutes
[2022-03-07] MEDS ORDERED: oxyCODONE HCL IR 5 MG TAB (IMMEDIATE RELEASE) PO PRN (13:04)
--- NOTE | 2022-03-07 13:04 | Post Anesthesia Assessment ---
Date of Service March 07, 2022 Post Sedation Assessment Vital Signs Temp Pulse Pulse Resp BP BP Pulse Ox 03/07/22 11:46 60 16 156/68 H 98 03/07/22 08:00 36.8 C 126 H 23 96 03/07/22 08:00 143/100 H 03/07/22 07:00 36.7 C 138 H 29 H 97 03/07/22 07:00 132/79 03/07/22 06:42 36.7 C 120 H 20 99 03/07/22 06:42 145/68 H 03/07/22 06:21 36.7 C 140 H 21 98 03/07/22 06:21 124/68 03/07/22 06:00 36.7 C 81 22 97 03/07/22 06:00 177/72 H 03/07/22 07:59 03/07/22 05:34 36.8 C 74 24 99 03/07/22 05:34 160/79 H 03/07/22 05:06 182/71 H 03/07/22 05:06 36.8 C 76 21 99 03/07/22 05:01 36.8 C 75 22 100 03/07/22 05:01 189/73 H 03/07/22 04:00 36.9 C 67 19 158/54 H 99 03/07/22 03:00 36.9 C 76 18 99 03/07/22 03:00 172/72 H 03/07/22 02:00 36.9 C 71 15 100 03/07/22 02:00 155/74 H 03/07/22 00:00 65 03/07/22 00:00 36.9 C 70 22 100 03/07/22 00:00 149/82 H 03/06/22 23:00 37.0 C 67 19 100 03/06/22 23:00 151/65 H 03/06/22 22:00 37.3 C 70 22 100 03/06/22 22:00 154/65 H 03/06/22 21:00 37.4 C 79 31 H 99 03/06/22 21:00 162/65 H 03/06/22 20:00 37.4 C 81 23 98 03/06/22 20:00 161/65 H 03/06/22 19:01 161/65 H 03/06/22 19:01 37.5 C 78 26 H 97 03/06/22 20:11 03/06/22 18:01 160/69 H 03/06/22 18:01 37.6 C H 78 17 100 03/06/22 18:00 37.6 C H 77 20 100 03/06/22 17:00 37.4 C 75 28 H 100 03/06/22 17:00 156/56 H 03/06/22 16:00 37.2 C 83 19 98 03/06/22 16:00 131/51 L 03/06/22 15:01 37.0 C 72 23 99 03/06/22 15:01 161/61 H 03/06/22 15:00 37.0 C 74 16 100 03/06/22 14:00 36.9 C 68 19 100 03/06/22 14:00 152/56 H O2 Del Method O2 Flow Rate 03/07/22 11:46 Room Air 03/07/22 08:00 3 03/07/22 08:00 03/07/22 07:00 03/07/22 07:00 3 03/07/22 06:42 03/07/22 06:42 03/07/22 06:21 03/07/22 06:21 03/07/22 06:00 03/07/22 06:00 03/07/22 07:59 Nasal Cannula 3 03/07/22 05:34 03/07/22 05:34 03/07/22 05:06 03/07/22 05:06 03/07/22 05:01 03/07/22 05:01 03/07/22 04:00 03/07/22 03:00 03/07/22 03:00 03/07/22 02:00 03/07/22 02:00 03/07/22 00:00 03/07/22 00:00 03/07/22 00:00 03/06/22 23:00 03/06/22 23:00 03/06/22 22:00 03/06/22 22:00 03/06/22 21:00 03/06/22 21:00 03/06/22 20:00 03/06/22 20:00 03/06/22 19:01 03/06/22 19:01 03/06/22 20:11 Nasal Cannula 2 03/06/22 18:01 03/06/22 18:01 03/06/22 18:00 03/06/22 17:00 03/06/22 17:00 03/06/22 16:00 03/06/22 16:00 03/06/22 15:01 03/06/22 15:01 03/06/22 15:00 03/06/22 14:00 03/06/22 14:00 Recovery Score Activity: Moves 4 extremities Respiration: Deep Breath/Cough Circulation: +/-20% PreAnes Value Consciousness: Fully Awake Oxygen Saturation: > 92% On Room Air Discharge Sedation Level of Care: Fast Track Phase II Post Sedation Plan On clinical assessment, the patient appears to have tolerated the sedation without complications. Patient is recovering as anticipated. Patient will continue to be monitored by nursing and may be discharged when sedation discharge criteria are met per below protocol. Upon Completions of procedure up to 15 minutes continue every 5 minute vital signs and the P.A.R. score; then discharge to a Phase I or Fast Track to Phase II per the following guidelines: * Discharge Patient to appropriate Phase II area if PAR is 8 or greater or return to pre- procedure baseline. The post - procedure orders will be as directed. * If PAR score is less than 8 or not return to pre-procedure baseline then patient will follow Phase I monitoring till PAR is reached for Phase II. The Phase I may be done in procedure room or may call to secure a Phase I area. * If naloxone or flumazenil are used for reversal, hold in Phase I for continued monitoring from when last reversal dose was given for a minimum of 60 minutes or longer pending the nurse and/or physician discretion of patient condition before discharge to Phase II. Please call the Sedation Physician to re-evaluate and complete post-note for discharge to Phase II area. Do NOT discharge from procedure sedation or Phase 1 until post- sedation evaluation note is complete by procedure /sedation MD Sedation Discharge Instructions to be given to the patient at discharge to home.
[2022-03-07] MEDS: LACTATED RINGER'S 1,000 ML IV SCH ×2 (14:12→23:03)
[2022-03-07] MEDS ORDERED: METOPROLOL SUCC 50MG EXT REL TAB PO ONE (17:00)
[2022-03-07] MEDS: dilTIAZem HCL 30 MG TAB PO SCH ×2 (17:24→23:02)
--- NOTE | 2022-03-07 17:27 | Cardiology Progress Note ---
Date of Service March 07, 2022 Assessment & Plan (1) Atrial fibrillation: (2) Anticoagulant long-term use: (3) Bradycardia: Plan 1. Paroxysmal atrial fibrillation: She continues to cycle in an out of atrial fibrillation. I think we can feel more confident about aggressive rate control with her pacemaker. She is not appear to be symptomatic from the arrhythmia itself. I will re-initiate her diltiazem and metoprolol. Given the absence of symptoms in the arrhythmia in her advanced age I am not sure there is much benefit to antiarrhythmic therapy. We should refrain from systemic anticoagulation for 2 days given her recent device implant. This will reduce her chance of bleeding complication at this site. 2. Bradycardia: Resolved. Presumably related to aggressive rate control medications although the timing of her symptoms was curious. She underwent device implantation today. No immediate complication. A re-initiated her rate control medications which we will likely need to increase over the next 24 hours. Admission and Anticipated Discharge Date Admission Date: March 03, 2022 Subjective I saw the patient this afternoon subsequent to her pacemaker implantation. Minimal discomfort at the device implant site. Otherwise feeling well. Not aware of any palpitations. Review of Systems Review of Systems: Per HPI Physical Exam Physical Exam: She is alert and oriented x3. Mood affect appear normal. She answered all questions appropriately. Hard of hearing HEENT: Sclerae are anicteric. Pupils are equal and reactive to light and ac commodation. Extraocular movements were intact. Neuro: Cranial nerves intact. notable facial, lip tremor. Lungs: Lungs are clear to auscultation bilaterally. There are no rales wheezes or rhonchi. She has normal respiratory effort without use of accessory muscles. There is normal pulmonary excursion. Cardiac: The rhythm was irregular. S1 and S2 were normal. There are no murmurs on examination. The PMI was not markedly displaced on palpation. chest: Device implant site in left upper pectoral area. Mild ecchymosis. No significant hematoma. Results & Data ([facility]) Vital Signs (Past 12 Hours) Vital Signs Temp Pulse Pulse Resp BP BP Pulse Ox 03/07/22 16:00 37.2 C 76 27 H 98 03/07/22 15:01 157/52 H 03/07/22 15:01 37.1 C 75 22 97 03/07/22 15:00 37.1 C 74 21 98 03/07/22 14:01 155/71 H 03/07/22 14:01 36.8 C 73 15 97 03/07/22 14:00 36.8 C 72 23 96 03/07/22 13:52 36.8 C 03/07/22 13:52 151/55 H 03/07/22 11:00 36.8 C 72 18 98 03/07/22 11:00 156/57 H 03/07/22 10:00 36.8 C 112 H 17 100 03/07/22 10:00 137/68 03/07/22 09:00 36.8 C 123 H 17 100 03/07/22 09:00 117/69 03/07/22 13:25 62 16 137/53 L 97 03/07/22 13:10 58 L 16 146/61 H 98 03/07/22 11:46 60 16 156/68 H 98 03/07/22 08:00 36.8 C 126 H 23 96 03/07/22 08:00 143/100 H 03/07/22 07:00 36.7 C 138 H 29 H 97 03/07/22 07:00 132/79 03/07/22 06:42 36.7 C 120 H 20 99 03/07/22 06:42 145/68 H 03/07/22 06:21 36.7 C 140 H 21 98 03/07/22 06:21 124/68 03/07/22 06:00 36.7 C 81 22 97 03/07/22 06:00 177/72 H 03/07/22 07:59 03/07/22 05:34 36.8 C 74 24 99 03/07/22 05:34 160/79 H O2 Del Method O2 Flow Rate 03/07/22 16:00 03/07/22 15:01 03/07/22 15:01 03/07/22 15:00 03/07/22 14:01 03/07/22 14:01 03/07/22 14:00 03/07/22 13:52 03/07/22 13:52 03/07/22 11:00 03/07/22 11:00 03/07/22 10:00 03/07/22 10:00 03/07/22 09:00 03/07/22 09:00 03/07/22 13:25 3 03/07/22 13:10 3 03/07/22 11:46 Room Air 03/07/22 08:00 3 03/07/22 08:00 03/07/22 07:00 03/07/22 07:00 3 03/07/22 06:42 03/07/22 06:42 03/07/22 06:21 03/07/22 06:21 03/07/22 06:00 03/07/22 06:00 03/07/22 07:59 Nasal Cannula 3 03/07/22 05:34 03/07/22 05:34 Laboratory Results Abnormal Lab Results 03/03/22 03/03/22 03/03/22 14:24 14:24 14:24 WBC 13.10 H RBC 3.32 L Hgb 8.8 L Hct 29.0 L MCV 87.3 MCH 26.5 MCHC 30.3 L RDW Std Deviation 54.5 H RDW Coeff of [place] 17.2 H Plt Count 341 MPV 11.8 Immature Gran % (Auto) 0.5 Neut % (Auto) 67.7 Lymph % (Auto) 20.9 [place] % (Auto) 8.9 Eos % (Auto) 1.2 Baso % (Auto) 0.8 Neut # (Auto) 8.88 H Lymph # (Auto) 2.74 [place] # (Auto) 1.16 H Eos # (Auto) 0.16 Baso # (Auto) 0.10 Immature Gran # (Auto) 0.06 H ESR PT INR APTT PTT Ratio Sodium 138 Potassium 4.7 Chloride 101 Carbon Dioxide 29 Anion Gap 8 BUN 28 H Creatinine 1.45 H Est Cr Clr Drug Dosing Not Reportable Est GFR ( Amer) 38.5 Est GFR (Non-Af Amer) 33.2 BUN/Creatinine Ratio 19.3 Glucose 87 POC Glucose Calcium 8.7 Phosphorus 3.5 Magnesium 1.3 L Total Bilirubin 0.3 AST 13 ALT 10 Alkaline Phosphatase 54 Troponin I High Sens 37.0 H C-Reactive Protein Total Protein 6.6 Albumin 3.7 Globulin 2.9 Albumin/Globulin Ratio 1.3 Procalcitonin TSH 2.360 Digoxin 03/03/22 03/03/22 03/03/22 14:24 14:24 14:24 WBC RBC Hgb Hct MCV MCH MCHC RDW Std Deviation RDW Coeff of [place] Plt Count MPV Immature Gran % (Auto) Neut % (Auto) Lymph % (Auto) [place] % (Auto) Eos % (Auto) Baso % (Auto) Neut # (Auto) Lymph # (Auto) [place] # (Auto) Eos # (Auto) Baso # (Auto) Immature Gran # (Auto) ESR PT 11.6 INR 1.1 APTT 28.1 PTT Ratio 1.0 Sodium Potassium Chloride Carbon Dioxide Anion Gap BUN Creatinine Est Cr Clr Drug Dosing Est GFR ( Amer) Est GFR (Non-Af Amer) BUN/Creatinine Ratio Glucose POC Glucose Calcium Phosphorus Magnesium Total Bilirubin AST ALT Alkaline Phosphatase Troponin I High Sens C-Reactive Protein < 0.50 Total Protein Albumin Globulin Albumin/Globulin Ratio Procalcitonin TSH Digoxin < 0.3 L 03/03/22 03/03/22 03/03/22 14:24 16:00 17:13 WBC RBC Hgb Hct MCV MCH MCHC RDW Std Deviation RDW Coeff of [place] Plt Count MPV Immature Gran % (Auto) Neut % (Auto) Lymph % (Auto) [place] % (Auto) Eos % (Auto) Baso % (Auto) Neut # (Auto) Lymph # (Auto) [place] # (Auto) Eos # (Auto) Baso # (Auto) Immature Gran # (Auto) ESR 37 H PT INR APTT PTT Ratio Sodium Potassium Chloride Carbon Dioxide Anion Gap BUN Creatinine Est Cr Clr Drug Dosing Est GFR ( Amer) Est GFR (Non-Af Amer) BUN/Creatinine Ratio Glucose POC Glucose 105 H Calcium Phosphorus Magnesium Total Bilirubin AST ALT Alkaline Phosphatase Troponin I High Sens C-Reactive Protein Total Protein Albumin Globulin Albumin/Globulin Ratio Procalcitonin < 0.05 TSH Digoxin 03/03/22 03/04/22 03/04/22 19:27 00:26 07:30 WBC RBC Hgb Hct MCV MCH MCHC RDW Std Deviation RDW Coeff of [place] Plt Count MPV Immature Gran % (Auto) Neut % (Auto) Lymph % (Auto) [place] % (Auto) Eos % (Auto) Baso % (Auto) Neut # (Auto) Lymph # (Auto) [place] # (Auto) Eos # (Auto) Baso # (Auto) Immature Gran # (Auto) ESR PT INR APTT PTT Ratio Sodium Potassium Chloride Carbon Dioxide Anion Gap BUN Creatinine Est Cr Clr Drug Dosing Est GFR ( Amer) Est GFR (Non-Af Amer) BUN/Creatinine Ratio Glucose POC Glucose 141 H 152 H 135 H Calcium Phosphorus Magnesium Total Bilirubin AST ALT Alkaline Phosphatase Troponin I High Sens C-Reactive Protein Total Protein Albumin Globulin Albumin/Globulin Ratio Procalcitonin TSH Digoxin 03/04/22 03/04/22 03/04/22 08:13 08:13 11:22 WBC 13.34 H RBC 3.59 L Hgb 9.6 L Hct 31.6 L MCV 88.0 MCH 26.7 MCHC 30.4 L RDW Std Deviation 54.7 H RDW Coeff of [place] 17.2 H Plt Count 357 MPV 12.4 H Immature Gran % (Auto) Neut % (Auto) Lymph % (Auto) [place] % (Auto) Eos % (Auto) Baso % (Auto) Neut # (Auto) Lymph # (Auto) [place] # (Auto) Eos # (Auto) Baso # (Auto) Immature Gran # (Auto) ESR PT INR APTT PTT Ratio Sodium Potassium Chloride Carbon Dioxide Anion Gap BUN Creatinine 1.68 H Est Cr Clr Drug Dosing 25.3 Est GFR ( Amer) 32.2 Est GFR (Non-Af Amer) 27.8 BUN/Creatinine Ratio Glucose POC Glucose 158 H Calcium Phosphorus Magnesium Total Bilirubin AST ALT Alkaline Phosphatase Troponin I High Sens C-Reactive Protein Total Protein Albumin Globulin Albumin/Globulin Ratio Procalcitonin TSH Digoxin Diagnostic Findings Echocardiogram performed 02/09/2022: Normal LV systolic function. Moderate to severe tricuspid regurgitation. Elevated right-sided pulmonary pressures. (1) Atrial fibrillation Atrial fibrillation type: paroxysmal Qualified Code(s): I48.0 - Paroxysmal atrial fibrillation
[2022-03-07] MEDS ORDERED: ceFAZolin 1000MG 1,000 MG/7.5 ML SYR IV ONE (20:00)
[2022-03-07] MEDS ORDERED: METOPROLOL SUCC 50MG EXT REL TAB PO SCH (21:00)
--- NOTE | 2022-03-07 21:09 | Hospitalist Progress Note ---
Date of Service March 07, 2022 Assessment & Plan (1) Atrial fibrillation: Plan: Atrial fibrillation in RVR in a 81 year old female w/ PMHx of HTN, HLD, DM, COPD, afib on Xarelto, and recent covid (s/p molupiravir) diagnosed late January. No longer having diarrhea, Admitted to PCU. Cardio recommended to stop diltiazem drip and place on diltiazem q6h with hold parameters Continue metoprolol with hold parameters. Patient was cardioverted. Continue home anticoagulation. Patient has been on Dig. Doubt cause is infection but will order inflammatory markers, procal, Early AM of 03/05 Patient developed bradycardia, hypotension, patient transferred to ICU. Placed on pressors. horticulture instructor consulted. On 03/06 off pressors. initial plan was to downgrade, however, due to risk of her going back to RVR, cardio would prefer that she stays in the ICU overnight. 03/07 s/p pacemaker, will increase rate controlled meds as patient remains tachycardic. transferred out of ICU (2) Hypertension: Plan: resume home meds (3) Hyperlipidemia: Plan: resume home meds (4) Diabetes mellitus: Plan: placed on glycemic control (5) COVID: Plan: Patient had history of this earlier in February. Admission and Anticipated Discharge Date Admission Date: March 03, 2022 Subjective 81 yo female has no new complaints Review of Systems Review of Systems: All systems reviewed & are unremarkable except as noted in HPI & below Physical Exam Physical Exam: The patient appeared with chronic respiratory failure but appears to be stable at this time Vital signs as documented. Head exam is normocephalic atraumatic Neck is without JVD, thyromegaly, or carotid bruits. Lungs are poor air movement no focal loss no wheezes Cardiac exam, Rhythm is regular.. Systolic ejection murmur at the right upper sternal border Abdominal exam reveals normal bowel sounds, soft non tender, no masses Extremities both pedal pulses are present Neurologic exam is alert and oriented, no focal loss of strength or sensation Skin is without bruises or rashes Psychologically is without concerns for anxiety or depression Results & Data Results & Data ([facility]) Vital Signs (Past 12 Hours) Vital Signs Temp Pulse Pulse Resp BP BP Pulse Ox 03/07/22 19:45 81 19 97 03/07/22 19:30 124 H 24 97 03/07/22 19:16 140/103 H 03/07/22 19:16 37.3 C 129 H 27 H 97 03/07/22 19:00 140 H 22 94 03/07/22 18:25 121/95 03/07/22 18:25 148 H 21 97 03/07/22 18:00 150 H 19 97 03/07/22 18:00 124/77 03/07/22 17:21 150 H 27 H 97 03/07/22 17:21 126/54 L 03/07/22 17:00 37.5 C 159 H 25 H 96 03/07/22 16:01 142/79 H 03/07/22 16:01 37.2 C 77 28 H 98 03/07/22 16:00 37.2 C 76 27 H 98 03/07/22 15:01 157/52 H 03/07/22 15:01 37.1 C 75 22 97 03/07/22 15:00 37.1 C 74 21 98 03/07/22 14:01 155/71 H 03/07/22 14:01 36.8 C 73 15 97 03/07/22 14:00 36.8 C 72 23 96 03/07/22 13:52 36.8 C 03/07/22 13:52 151/55 H 03/07/22 11:00 36.8 C 72 18 98 03/07/22 11:00 156/57 H 03/07/22 10:00 36.8 C 112 H 17 100 03/07/22 10:00 137/68 03/07/22 13:25 62 16 137/53 L 97 03/07/22 13:10 58 L 16 146/61 H 98 03/07/22 11:46 60 16 156/68 H 98 O2 Del Method O2 Flow Rate 03/07/22 19:45 03/07/22 19:30 03/07/22 19:16 03/07/22 19:16 Nasal Cannula 2 03/07/22 19:00 03/07/22 18:25 03/07/22 18:25 03/07/22 18:00 03/07/22 18:00 03/07/22 17:21 03/07/22 17:21 03/07/22 17:00 Nasal Cannula 3 03/07/22 16:01 03/07/22 16:01 03/07/22 16:00 03/07/22 15:01 03/07/22 15:01 03/07/22 15:00 03/07/22 14:01 03/07/22 14:01 03/07/22 14:00 03/07/22 13:52 03/07/22 13:52 03/07/22 11:00 03/07/22 11:00 03/07/22 10:00 03/07/22 10:00 03/07/22 13:25 3 03/07/22 13:10 3 03/07/22 11:46 Room Air PG Care Time/CCT Total # of Minutes Spent Total Time Spent with Patient: Total time spent is greater than 50% in coordination of care (as documented) at patient's floor/unit and/or counseling patient: Coding Level of Care Code 64093 Subseq Hosp Care Lvl 2 Diagnoses Atrial fibrillation I48.0 Atrial fibrillation type: paroxysmal Hypertension I10 Hyperlipidemia E78.5 Diabetes mellitus E11.9 COVID U07.1 Time Spent (min) 25 (1) Atrial fibrillation Atrial fibrillation type: paroxysmal Qualified Code(s): I48.0 - Paroxysmal atrial fibrillation
[2022-03-08] MEDS: dilTIAZem HCL 30 MG TAB PO SCH (04:16)
[2022-03-08 04:56] LABS: Hematocrit (blood only) 26.2 % (34.1-44.9); Hemoglobin 7.9 g/dl (12.0-16.0); Mean Corpuscular Hemoglobin 26.6 pg (25.0-34.0); Mean Corpuscular Hgb Conc 30.2 g/dL (32.0-36.0); Mean Corpuscular Volume 88.2 fL (80.0-100.0); Mean Platelet Volume 11.7 fL (9.4-12.3); Platelet Count 289 K/uL (130-400); RDW Coefficient of Variation 17.5 % (11.5-14.5); RDW Standard Deviation 55.5 fL (36.4-46.3); Red Blood Count 2.97 M/uL (3.93-5.22); Reticulocyte % 2.7 % (0.5-2.0); Reticulocytes # 0.08 10^6/uL (0.02-0.10); White Blood Count 12.56 K/ul (4.8-10.8)
[2022-03-08 05:31] LABS: BUN Creatinine Ratio 19.2 (10-20); Calcium 8.7 mg/dl (8.5-10.1); Creatinine Clr Calc Pharmacy 28.8 ml/min; Est GFR (African American) 36.7 ml/min; Est GFR (Non-African American) 31.6 ml/min; Potassium 4.7 mmol/L (3.5-5.1)
[2022-03-08 05:34] LABS: Ferritin 40.7 ng/ml (8-388)
--- NOTE | 2022-03-08 05:54 | Electrocardiogram Report ---
Test Reason : Blood Pressure : / mmHG Vent. Rate : 133 BPM Atrial Rate : 245 BPM P-R Int : 000 ms QRS Dur : 086 ms QT Int : 332 ms P-R-T Axes : 000 046 -38 degrees QTc Int : 494 ms Atrial fibrillation with rapid ventricular response Abnormal ECG When compared with ECG of 06-MAR-2022 05:23, Atrial fibrillation has replaced Sinus rhythm Vent. rate has increased BY [address] now depressed in Inferior leads ST now depressed in Anterior leads Confirmed by Dima Tovar ([id number]) on 03/08/2022 5:53:55 AM Referred By: REFERRED SELF Confirmed By:Dima Tovar
[2022-03-08] MEDS: PANTOprazole 40 MG TAB PO SCH (08:15)
[2022-03-08] MEDS: CETIRIZINE HCL 10 MG TABLET PO SCH (08:15)
[2022-03-08] MEDS: CYANOCOBALAMIN (B-12) 500 MCG TABLET PO SCH (08:15)
[2022-03-08] MEDS: FLUoxetine HCL 20 MG CAP PO SCH (08:15)
[2022-03-08] MEDS: FLUTICASONE/VILANTEROL 200/25MCG 14 PUFFS/INHALER INH SCH (08:18)
[2022-03-08] MEDS: INSULIN ASPART PER UNIT SC SCH ×4 (08:21→21:15)
[2022-03-08] MEDS ORDERED: METOPROLOL SUCC 50MG EXT REL TAB PO SCH (09:00)
[2022-03-08] MEDS ORDERED: APIXABAN 2.5 MG TAB PO SCH (09:00)
--- NOTE | 2022-03-08 10:18 | Cardiology Progress Note ---
Date of Service March 08, 2022 Assessment & Plan (1) Atrial fibrillation: (2) Anticoagulant long-term use: (3) Bradycardia: Plan 1. Paroxysmal atrial fibrillation: She continues to cycle in an out of atrial fibrillation. She has high ventricular rates but no significant symptoms. Now that she has device implant and we can be more aggressive with weight control. Will increase her metoprolol dose of 75 mg twice daily. She can continue diltiazem 240 mg total daily. With respect to anticoagulation. I think would be safe to resume on March 10. Previously she was on Eliquis 5 mg twice daily. Her renal function is still improving and hopefully she can return to 5 mg twice daily provided her creatinine is below 1.5. 2. Bradycardia: Resolved. Presumably related to aggressive rate control medications although the timing of her symptoms was curious. She underwent pacemaker implantation yesterday. No evident complication. Chest x-ray still pending. If she maintains sinus rhythm and is ambulatory, I think she would be safe for discharge today. She should refrain from lifting left arm above the shoulder for 6 weeks. She should keep the incision dry and Steri-Strips intact until follow-up which I will arrange in our clinic. Again, I think it discharge dose of medication could include metoprolol succinate 75 mg twice daily. Long-acting diltiazem 240 mg daily. We can track her heart rates and episodes of atrial fibrillation with her device. We can titrate her medications on an outpatient basis. She can resume anticoagulation on March 10. Admission and Anticipated Discharge Date Admission Date: March 03, 2022 Subjective Morning patient is feeling well. No current symptoms involving the device impla nt site. Some mild discomfort last evening. This appears to have resolved. No breathing difficulty. No other chest pain. No sense of palpitation. Review of Systems Review of Systems: Per HPI Physical Exam Physical Exam: alert and oriented Normal respiratory effort Device implant site without hematoma or significant ecchymosis. Results & Data ([facility]) Vital Signs (Past 12 Hours) Vital Signs Temp Pulse Pulse Resp BP BP Pulse Ox 03/08/22 08:00 03/08/22 08:00 36.3 C L 60 20 162/53 H 96 03/08/22 07:00 60 03/08/22 04:01 165/76 H 03/08/22 04:01 68 23 96 03/08/22 04:00 69 23 96 08/30/22 03:59 37.0 C 174/67 H 03/08/22 03:59 69 19 96 03/08/22 03:00 62 17 97 03/07/22 23:01 62 22 97 03/07/22 23:01 37.2 C 137/85 03/07/22 23:00 62 25 H 97 03/07/22 23:20 68 O2 Del Method O2 Flow Rate 03/08/22 08:00 Nasal Cannula 2 03/08/22 08:00 Nasal Cannula 2 03/08/22 07:00 03/08/22 04:01 03/08/22 04:01 03/08/22 04:00 03/08/22 03:59 Nasal Cannula 2 03/08/22 03:59 03/08/22 03:00 03/07/22 23:01 03/07/22 23:01 Nasal Cannula 2 03/07/22 23:00 03/07/22 23:20 Laboratory Results Abnormal Lab Results 03/07/22 03/07/22 03/07/22 13:44 16:29 20:26 WBC RBC Hgb Hct MCV MCH MCHC RDW Std Deviation RDW Coeff of [place] Plt Count MPV Reticulocyte % (Auto) Reticulocyte # Sodium Potassium Chloride Carbon Dioxide Anion Gap BUN Creatinine Est Cr Clr Drug Dosing Est GFR ( Amer) Est GFR (Non-Af Amer) BUN/Creatinine Ratio Glucose POC Glucose 108 H 160 H 133 H Calcium Iron TIBC Unsaturated IBC Transferrin Transferrin % Sat Ferritin 03/08/22 03/08/22 03/08/22 04:26 04:26 07:17 WBC 12.56 H RBC 2.97 L Hgb 7.9 L Hct 26.2 L MCV 88.2 MCH 26.6 MCHC 30.2 L RDW Std Deviation 55.5 H RDW Coeff of [place] 17.5 H Plt Count 289 MPV 11.7 Reticulocyte % (Auto) 2.7 H Reticulocyte # 0.08 Sodium 136 Potassium 4.7 Chloride 102 Carbon Dioxide 27 Anion Gap 7 BUN 29 H Creatinine 1.51 H Est Cr Clr Drug Dosing 28.8 Est GFR ( Amer) 36.7 Est GFR (Non-Af Amer) 31.6 BUN/Creatinine Ratio 19.2 Glucose 116 H POC Glucose 126 H Calcium 8.7 Iron 22 L TIBC 352 Unsaturated IBC 330 Transferrin 277 Transferrin % Sat 6 L Ferritin 40.7 Diagnostic Findings I performed complete device interrogation of her dual-chamber permanent pacemaker. Normal sensing threshold parameters on both the atrial ventricular leads. (1) Atrial fibrillation Atrial fibrillation type: paroxysmal Qualified Code(s): I48.0 - Paroxysmal atrial fibrillation
--- NOTE | 2022-03-08 10:51 | XRay Report ---
XR chest 2V PA/lateral CLINICAL HISTORY: Pacemaker insertion. COMPARISON STUDY: Chest radiograph March 06, 2022. FINDINGS: There is no pneumothorax placement of a dual-lead left subclavian pacemaker. Lead tips proj ect over the right appendage and right ventricle. Cardiomegaly is noted with persistent interstitial thickening. There are trace bilateral pleural effusions. IMPRESSION: 1. No pneumothorax following placement of a dual-lead left subclavian pacemaker. 2. Persistent pulmonary edema with trace bilateral pleural effusions. ACT 112: Negative or not required by law. Electronically signed by: Stevan Ch M.D. 03/08/2022 10:49 AM
[2022-03-08] MEDS: dilTIAZem HCl 60 MG TAB PO SCH ×3 (11:19→22:31)
[2022-03-08] MEDS ORDERED: Nursing to Pharmacy Communication SCH (15:30)
--- NOTE | 2022-03-08 18:48 | Hospitalist Progress Note ---
Date of Service March 08, 2022 Assessment & Plan (1) Atrial fibrillation: Plan: Atrial fibrillation in RVR in a 81 year old female w/ PMHx of HTN, HLD, DM, COPD, afib on Xarelto, and recent covid (s/p molupiravir) diagnosed late January. No longer having diarrhea, Admitted to PCU. Cardio recommended to stop diltiazem drip and place on diltiazem q6h with hold parameters Continue metoprolol with hold parameters. Patient was cardioverted. Continue home anticoagulation. Patient has been on Dig. Doubt cause is infection but will order inflammatory markers, procal, Early AM of 03/05 Patient developed bradycardia, hypotension, patient transferred to ICU. Placed on pressors. deep tissue massage therapist consulted. On 03/06 off pressors. initial plan was to downgrade, however, due to risk of her going back to RVR, cardio would prefer that she stays in the ICU overnight. 03/07 s/p pacemaker, will increase rate controlled meds as patient remains tachycardic. transferred out of ICU 03/08 HR remains elevated. Increased metorplol to 75 mg PO BID. first dose will be PM. will monitor. anticipate DC in AM. (2) Hypertension: Plan: resume home meds (3) Hyperlipidemia: Plan: resume home meds (4) Diabetes mellitus: Plan: placed on glycemic control (5) COVID: Plan: Patient had history of this earlier in February. Admission and Anticipated Discharge Date Admission Date: March 03, 2022 Subjective 81 yo female reports having no new symptoms. Review of Systems Review of Systems: All systems reviewed & are unremarkable except as noted in HPI & below Physical Exam Physical Exam: The patient appeared with chronic respiratory failure but appears to be stable at this time Vital signs as documented. Head exam is normocephalic atraumatic Neck is without JVD, thyromegaly, or carotid bruits. Lungs are poor air movement no focal loss no wheezes Cardiac exam, Rhythm is regular.. Systolic ejection murmur at the right upper sternal border Abdominal exam reveals normal bowel sounds, soft non tender, no masses Extremities both pedal pulses are present Neurologic exam is alert and oriented, no focal loss of strength or sensation Skin is without bruises or rashes Psychologically is without concerns for anxiety or depression Results & Data Results & Data ([facility]) Vital Signs (Past 12 Hours) Vital Signs Temp Pulse Pulse Resp BP BP Pulse Ox 03/08/22 17:01 120 H 15 140/58 L 98 03/08/22 16:01 107 H 17 151/84 H 100 03/08/22 15:58 103 H 20 160/84 H 97 03/08/22 15:55 128 H 31 H 99/73 L 95 03/08/22 15:00 79 25 H 128/71 97 03/08/22 14:01 80 17 118/49 L 96 03/08/22 13:01 95 H 15 101/54 L 34 L 03/08/22 12:00 16 129/75 96 03/08/22 11:22 121 H 17 123/58 L 97 03/08/22 11:18 116 H 18 113/58 L 93 03/08/22 11:00 03/08/22 08:00 03/08/22 08:00 36.3 C L 60 20 162/53 H 96 03/08/22 07:00 60 O2 Del Method O2 Flow Rate 03/08/22 17:01 Nasal Cannula 2 03/08/22 16:01 Nasal Cannula 2 03/08/22 15:58 Nasal Cannula 2 03/08/22 15:55 Nasal Cannula 2 03/08/22 15:00 Nasal Cannula 2 03/08/22 14:01 Nasal Cannula 2 03/08/22 13:01 Nasal Cannula 2 03/08/22 12:00 Nasal Cannula 2 03/08/22 11:22 Nasal Cannula 2 03/08/22 11:18 Nasal Cannula 2 03/08/22 11:00 Nasal Cannula 2 03/08/22 08:00 Nasal Cannula 2 03/08/22 08:00 Nasal Cannula 2 03/08/22 07:00 PG Care Time/CCT Total # of Minutes Spent Total Time Spent with Patient: Total time spent is greater than 50% in coordination of care (as documented) at patient's floor/unit and/or counseling patient: Coding Level of Care Code 49933 Subseq Hosp Care Lvl 2 Diagnoses Atrial fibrillation I48.0 Atrial fibrillation type: paroxysmal Hypertension I10 Hyperlipidemia E78.5 Diabetes mellitus E11.9 COVID U07.1 Time Spent (min) 25 (1) Atrial fibrillation Atrial fibrillation type: paroxysmal Qualified Code(s): I48.0 - Paroxysmal atrial fibrillation
[2022-03-08] MEDS: METOPROLOL SUCC 25MG EXT REL TAB PO SCH (21:20)
[2022-03-09 05:03] LABS: Hematocrit (blood only) 25.5 % (34.1-44.9); Hemoglobin 7.6 g/dl (12.0-16.0); Mean Corpuscular Hemoglobin 26.3 pg (25.0-34.0); Mean Corpuscular Hgb Conc 29.8 g/dL (32.0-36.0); Mean Corpuscular Volume 88.2 fL (80.0-100.0); Mean Platelet Volume 11.2 fL (9.4-12.3); Platelet Count 275 K/uL (130-400); RDW Coefficient of Variation 17.2 % (11.5-14.5); RDW Standard Deviation 54.7 fL (36.4-46.3); Red Blood Count 2.89 M/uL (3.93-5.22); White Blood Count 12.31 K/ul (4.8-10.8)
[2022-03-09] MEDS: dilTIAZem HCl 60 MG TAB PO SCH (05:22)
[2022-03-09 05:47] LABS: Albumin Level 3.4 gm/dl (3.4-5.0); BUN Creatinine Ratio 16.9 (10-20); Bilirubin,Total 0.4 mg/dl (0.2-1.0); Calcium 8.4 mg/dl (8.5-10.1); Creatinine Clr Calc Pharmacy 33.5 ml/min; Est GFR (African American) 43.9 ml/min; Est GFR (Non-African American) 37.9 ml/min; Total Protein 6.5 gm/dl (6.0-8.3)
[2022-03-09] MEDS: PANTOprazole 40 MG TAB PO SCH (08:16)
[2022-03-09] MEDS: METOPROLOL SUCC 25MG EXT REL TAB PO SCH (08:16)
[2022-03-09] MEDS: CETIRIZINE HCL 10 MG TABLET PO SCH (08:17)
[2022-03-09] MEDS: FLUoxetine HCL 20 MG CAP PO SCH (08:17)
[2022-03-09] MEDS: CYANOCOBALAMIN (B-12) 500 MCG TABLET PO SCH (08:17)
[2022-03-09] MEDS: FLUTICASONE/VILANTEROL 200/25MCG 14 PUFFS/INHALER INH SCH (08:18)
[2022-03-09] MEDS: INSULIN ASPART PER UNIT SC SCH ×2 (08:19→12:10)
[2022-03-09] MEDS ORDERED: FERROUS SULFATE 325 MG TAB PO SCH (09:00)
[2022-03-09] MEDS ORDERED: dilTIAZem HCL 240 MG CAPCR PO SCH (11:00)
--- NOTE | 2022-03-09 11:23 | Discharge Summary ---
Date of Service March 09, 2022 Admission HPI Per Admitting Provider 81 year old female w/ PMHx of HTN, HLD, DM, COPD, afib on Xarelto, and recent covid (s/p molnupiravir) presents to the hospital from her PCP. She was found to be in atrial fibrillation and RVR. Patient had 2 BM this morning, second BM was loose. No change in color o stool. Patient denies any fever, chills, nausea, vomiting, fatigue, palpitations. Despite being on Atrial fibrillation, patient reports being mainly asymptomatic Principal Diagnosis ATRIAL FIBRILLATION Discharge Exam The patient appeared with chronic respiratory failure but appears to be stable at this time Vital signs as documented. Head exam is normocephalic atraumatic Neck is without JVD, thyromegaly, or carotid bruits. Lungs are poor air movement no focal loss no wheezes Cardiac exam, Rhythm is regular.. Systolic ejection murmur at the right upper sternal border Abdominal exam reveals normal bowel sounds, soft non tender, no masses Extremities both pedal pulses are present Neurologic exam is alert and oriented, no focal loss of strength or sensation Skin is without bruises or rashes Psychologically is without concerns for anxiety or depression Discharge Data Allergies Allergy/AdvReac Type Severity Reaction Status Date / Time Penicillins AdvReac Mild GI SYMPTOMS Verified 03/03/22 16:04 Consultations 03/03/22 15:22 Consult Cardiology Routine 03/03/22 15:25 ED Decision to Admit Stat 03/05/22 06:26 Consult Generator Rebuilder Routine Procedures Performed Operation Date: 03/07/22 10:00 Actual Procedures p Pacer with A/V Leads (Dual) - Reza Mcclendon MD Ordered Studies 03/05/22 06:46 CT head/brain wo con Stat 03/05/22 07:55 US renal/blad retro comp Stat 03/07/22 12:00 EP Lab Images for PACS ONCE Hospital Course (1) Atrial fibrillation: Atrial fibrillation in RVR in a 81 year old female w/ PMHx of HTN, HLD, DM, COPD, afib on Xarelto, and recent covid (s/p molupiravir) diagnosed late January. No longer having diarrhea, Admitted to PCU. Cardio recommended to stop diltiazem drip and place on diltiazem q6h with hold parameters Continue metoprolol with hold parameters. Patient was cardioverted. Continue home anticoagulation. Patient has been on Dig. Doubt cause is infection but will order inflammatory markers, procal, Early AM of 03/05 Patient developed bradycardia, hypotension, patient transferred to ICU. Placed on pressors. television servicer consulted. On 03/06 off pressors. initial plan was to downgrade, however, due to risk of her going back to RVR, cardio would prefer that she stays in the ICU overnight. 03/07 s/p pacemaker, will increase rate controlled meds as patient remains tachycardic. transferred out of ICU 03/08 HR remains elevated. Increased metorplol to 75 mg PO BID. first dose will be PM. 03/09 appreciate input from Cardiology If she maintains sinus rhythm and is ambulatory, I think she would be safe for discharge today. She should refrain from lifting left arm above the shoulder for 6 weeks. She should keep the incision dry and Steri-Strips intact until follow-up which I will arrange in our clinic. Again, I think it discharge dose of medication could include metoprolol succinate 75 mg twice daily. Long-acting diltiazem 240 mg daily. We can track her heart rates and episodes of atrial fibrillation with her device. We can titrate her medications on an outpatient basis. She can resume anticoagulation on March 10. (2) Hypertension: resume home meds (3) Hyperlipidemia: resume home meds (4) Diabetes mellitus: placed on glycemic control (5) COVID: Patient had history of this earlier in February. Plan Parosysmal Atrial Fib 81-year-old female who presents in A. fib RVR. Patient is noted to have a history of atrial fibrillation, uspecified. The medical record reflects the following clinical evidence: Clinical Indicators: As above. Risk Factor(s): atrial fib Treatment: IV NS bolus, Lopressor, IV Cardizem drip, Eliquis, Lasix, Cardiology consultation Chronic HFpEF The medical record reflects the following clinical evidence: Clinical Indicators: Home daily diuretic therapy, valvular dysfunction on echo, Chest x-ray does note unchanged cardiomegaly and mild pulmonary vascular congestion Risk Factor(s): Age, hypertension,? CKD, Treatment: Lopressor, IV Cardizem drip, Lasix, Cardiology consultation, Daily weights, I's and O's CKD 3 The medical record reflects the following clinical evidence: Clinical Indicators: BUN 28, creatinine 1.45, estimated GFR 33.2, Risk Factor(s): Age, hypertension, question of CHF, atrial fibrillation, diuretic therapy, Treatment: daily PRP's, IV NS bolus, Total Time Total Time Spent Total Time Spent (In Minutes): 35 Discharge Plan Discharge Items Patient Disposition: Home - Self-Care Reason For Visit: ATRIAL FIB RVR Discharge Diagnosis: Atrial fibrillation with RVR Activity: Resume your previous activity Non-emergency contact: Primary Care Provider Call non-emergency contact if: you have any medication questions Follow-up/Referrals: Irina Vivar MD [Primary Care Provider] - 03/21/22 11:30 am (Geraldine Collins) Diet: Carb Consistent or DM2 Addtl Attending Provider Instructions: Good morning Mrs. Sanchez, You continued to have high high rate but due to your low heart rate in response to medications, you required a pacemaker. This will maintain a floor heart rate of about 60 beats per minute. You will now be on metoprolol 75 mg TWICE DAILY With respect to your Eliquis, PLEASE resume on March 10. Please refrain from lifting left arm above the shoulder for 6 weeks. Please keep the incision dry and Steri-Strips intact until follow-up which Dr. Mcclendon will arrange at his clinic. Dr. Mcclendon can track her heart rates and episodes of atrial fibrillation with her device. He can titrate her medications on an outpatient basis. It was a pleasure taking care of you. Best regards, Stefan Jack MD. Addtl Art Glass Setter Provider Instructions: follow-up for a nurse visit in the cardiology department 03/15/2022 10:[address] [place] [address]. Pending Studies at Discharge: No Stand-Alone Forms: My [facility] [employer], Smoking Cessation Medications and DC Order Prescriptions: New metoprolol succinate 25 mg Tablet Extended Release 24 Hr 75 mg PO BID 30 Days Qty: 180 0RF ferrous sulfate 325 mg (65 mg iron) Tablet,Delayed Release (Dr/Ec) 325 mg PO MoWeFr@0900 Qty: 15 0RF Continued benzonatate 100 mg capsule 100 mg PO TID PRN (Reason: cough) Qty: 30 0RF atorvastatin 40 mg tablet 40 mg PO DAILY metformin 500 mg tablet 500 mg PO BID cetirizine 10 mg tablet 10 mg PO DAILY diltiazem HCl 240 mg capsule,extended release 24hr 240 mg PO QAM zafirlukast 20 mg tablet 20 mg PO BID omeprazole 20 mg capsule,delayed release(DR/EC) 20 mg PO DAILY fluoxetine 20 mg capsule 20 mg PO DAILY furosemide [Lasix] 40 mg tablet 40 mg PO DAILY Qty: 30 3RF glipizide 5 mg tablet 5 mg PO DAILY fluticasone furoate-vilanterol 200-25 mcg/dose blister with device 1 inh INHALATION DAILY cyanocobalamin (vitamin B-12) 500 mcg Tablet 1,000 mcg PO QAM Qty: 30 0RF Eliquis 5 mg Tablet 5 mg PO BID Qty: 30 0RF Discontinued metoprolol tartrate 50 mg tablet 50 mg PO BID losartan 25 mg tablet 25 mg PO DAILY Discharge Orders: Discharge Order (Routine); Ordered 03/09/22 Ordered By: Stefan Jack Admission Data Admit Date/Time: 03/03/22 15:22 Attending Provider: Stefan Jack Admit Provider: Stefan Jack Primary Care Provider: Irina Vivar Other Providers: Eliud Willson ; Stefan Jack ; Ab Mcfadden ; García Vanegas ; Toy Lei ; Ben Carpio ; Tez Hayward ; Rambo Blas ; Rashel Dumont ; Alberto Armas ; Brea Majano ; [facility] Other Interventions: Discharge Summary Assessment (RN) Last Done: 03/09/22 12:49 Coding Level of Care Code D/C DAY MANAGEMENT >30 MINS Diagnoses Atrial fibrillation I48.0 Atrial fibrillation type: paroxysmal Hypertension I10 Hyperlipidemia E78.5 Diabetes mellitus E11.9 COVID U07.1
[2022-03-15 21:31] LABS: Uric Acid, Random Urine 27 mg/dL
== END 2022-03-09 15:03 | disposition home or self-care (01) | DRG 242 ==
LOC: ED 13:33 → 2E 15:22 → 1E 03-05 06:25

== ENCOUNTER 2022-07-05 15:44 | Inpatient (IN) ==
--- NOTE | 2022-07-05 20:53 | Emergency Department Note ---
Impression & Plan Acute dyspnea, CHF (congestive heart failure), CHESTER (acute kidney injury), Anemia ED Provider Note NAME: KASHMIR William YOUNG AGE: 81 SEX: F : 1940 ARRIVES VIA: Walk-In INFORMANT: Patient ED PROVIDER(S): Sudheer De La Rosa DO CHIEF COMPLAINT: shortness of breath HPI: Patient is an 81-year-old female with a past medical history of paroxysmal A. fib, pacer, CKD, cardiogenic shock, hyperlipidemia and hypertension who presents the ER for shortness of breath. She has been taking her apixaban and has not missed any doses. She denies any chest pain but admits to shortness of breath with any movement. She has had 10 pound weight gain over the past week. Significant swelling of the bilateral lower extremities going up to the hips. She was seen by her PCP and referred in for admission. Chronically wears about 3 to 4 L nasal cannula. No other exacerbating or remitting factors. ROS: See above HPI for pertinent positives & negatives. A total of 10 systems reviewed and were otherwise negative. PAST MEDICAL HISTORY:See Below PAST SURGICAL HISTORY:See Below FAMILY HISTORY:See Below SOCIAL HISTORY:See Below HOME MEDICATIONS:See Below ALLERGIES:See Below VITALS:See Below PHYSICAL EXAMINATION: GENERAL: Sitting up in bed, alert, well appearing, well nourished, no distress, non-toxic EYE EXAM: normal conjunctiva. OROPHARYNX: no exudate, no erythema, lips, buccal mucosa, and tongue normal and mucous membranes are moist NECK: supple, no nuchal rigidity, no adenopathy, non-tender LUNGS: Clear to auscultation. Normal chest wall mechanics HEART: no murmurs, S1 normal and S2 normal ABDOMEN: abdomen soft, non-tender, normo-active bowel sounds, no masses, no r ebound or guarding. UPPER EXTREMITIES: upper extremities are grossly normal. LOWER EXTREMITIES: Pitting edema in the bilateral lower extremities tracking up to the back NEURO EXAM: Normal sensorium, cranial nerves II-XII grossly intact, normal speech, no gross weakness of arms, no gross weakness of legs. MEDICAL DECISION MAKING: Patient is an 81-year-old female who presents ER for shortness of breath. IV was established blood work is obtained. Labs show mild leukocytosis 12,000. Mild anemia 10. BMP with a creatinine of 2 up from baseline of 1.5. LFTs bilirubin was unremarkable. Chest x-ray was unremarkable. EKG was nondiagnostic as it was intermittently dual paced. Patient was discussed with not any hospitalist and admitted for further work-up. Triage Nursing notes reviewed. Limited review of prior medical records performed Vital Signs: reviewed and remarkable for normal pulse ox on her chronic 3 L Differential diagnosis: Differential diagnoses includes but is not limited to pneumonia, bronchitis, COPD/Asthma exacerbation, pneumothorax, pulmonary embolism, congestive heart failure, acute coronary syndrome ER treatment provided: See below Diagnostics interpreted by me: ECG: Intermittently paced rate of 67 Left axis QTC 469 Cardiac Monitoring: An order was placed for continuous cardiac monitoring. The monitor shows a rate of 70 with paced rhythm. Laboratory studies: As stated above and show below. Imaging studies: Portable AP upright 1 view chest was unremarkable Consultation(s): This is the hospitalist for further evaluation Procedures: none Critical Care: None Past Med/Surg History Medical History (Updated 07/06/22 @ 01:14 by Sudheer De La Rosa DO) Anxiety Atrial fibrillation CKD stage G3b/A3, GFR 30-44 and albumin creatinine ratio >300 mg/g COPD (chronic obstructive pulmonary disease) Diabetes mellitus Hyperlipidemia Hypertension T2DM (type 2 diabetes mellitus) Surgical History No pertinent past surgical history S/P cataract extraction Status post cardiac pacemaker procedure Family History Other Colorectal cancer Hypertension Kidney disease Lung disease Prostate cancer Denies family history of Breast cancer Social History Smoking Status: Never smoker Cigarettes Per Day: smoked for 60 years; Second Hand Exposure: Yes; Hx Alcohol Use: No Hx Substance Use: No Preferred Language: Fijian Communication Ability: Effective Hotel Yardperson Required: No Beliefs That Will Affect Care: None marital status: / Current Living Situation: Alone Current Living Situation Comment: unable to obtain current occupational status: retired Feels Safe at Home: Yes caffeine: No Dental Care, Regularly: Yes Seatbelt Use: always Sunscreen Use: No Assistive Devices: Cane, Oxygen - Continuous and Walker Allergies Allergies Allergy/AdvReac Type Severity Reaction Status Date / Time Penicillins AdvReac Intermediate GI SYMPTOMS Verified 07/05/22 21:01 Home Meds Home Medications Medication Instructions Recorded Confirmed cetirizine 10 mg tablet 10 mg PO DAILY 05/12/21 07/05/22 ferrous sulfate 325 mg (65 mg 325 mg PO 3XWK 07/05/22 07/05/22 iron) tablet,delayed release ketoconazole 2 % topical cream 1 applic topical BID PRN RASH 07/05/22 07/05/22 UNDER BREASTS Previous Rx's Medication Instructions Recorded cyanocobalamin (vitamin B-12) 500 1,000 mcg PO QAM #30 tabs 02/13/22 mcg tablet apixaban 5 mg tablet (Eliquis) 5 mg PO BID #180 tabs 03/19/22 atorvastatin 40 mg tablet 40 mg PO DAILY #90 tabs 03/19/22 diltiazem HCl 240 mg 240 mg PO QAM #90 caps 03/19/22 capsule,extended release 24 hr fluoxetine 20 mg capsule 20 mg PO DAILY #90 caps 03/19/22 fluticasone furoate 200 1 inh inhalation DAILY #90 ea 03/19/22 mcg-vilanterol 25 mcg/dose inhalation powder furosemide 40 mg tablet (Lasix) 40 mg PO DAILY #90 tabs 03/19/22 metformin 500 mg tablet 500 mg PO BID #180 tabs 03/19/22 omeprazole 20 mg capsule,delayed 20 mg PO DAILY #90 caps 03/19/22 release metoprolol succinate 100 mg 100 mg PO Q12H #180 tabs 03/30/22 tablet,extended release 24 hr montelukast 10 mg tablet 10 mg PO DAILY #90 tabs 04/26/22 lorazepam 0.5 mg tablet 0.5 mg PO DAILY PRN anxiety #30 06/13/22 tabs empagliflozin 10 mg tablet 10 mg PO DAILY #90 tabs 06/20/22 Results & Data (ED) Vital Signs Vital Signs - 24 hr 07/05/22 16:17 07/05/22 21:51 07/05/22 21:51 Temperature 36.8 C Temperature Source Oral Pulse Rate 68 Pulse Rate [Apical] 88 Pulse Rhythm Regular Pulse Strength Normal Respiratory Rate 18 19 Respiratory Effort / Characteristics Non-Labored Spontaneous Respiratory Depth Normal Respiratory Pattern Regular Blood Pressure 126/68 Blood Pressure [Left Arm] 126/81 Blood Pressure Mean 87 Blood Pressure Mean [Left Arm] 96 Blood Pressure Position Sitting Pulse Oximetry 87 L 100 100 Oxygen Delivery Method Room Air Nasal Cannula Room Air Oxygen Flow Rate 4 Sepsis Recent Fever Within 48 Hours No Sepsis New/Unexplained Change in Mental Status No Sepsis Action Taken by Nursing No Action Required 07/05/22 22:01 Temperature Temperature Source Pulse Rate Pulse Rate [Apical] Pulse Rhythm Pulse Strength Respiratory Rate Respiratory Effort / Characteristics Respiratory Depth Respiratory Pattern Blood Pressure Blood Pressure [Left Arm] Blood Pressure Mean Blood Pressure Mean [Left Arm] Blood Pressure Position Pulse Oximetry 97 Oxygen Delivery Method Nasal Cannula Oxygen Flow Rate 4 Sepsis Recent Fever Within 48 Hours Sepsis New/Unexplained Change in Mental Status Sepsis Action Taken by Nursing Laboratory Data Result diagrams: 07/06/22 00:00 07/06/22 00:00 Lab Results 07/05/22 Range/Units 21:39 SARS-CoV-2, RNA, NAAT NEGATIVE (NEGATIVE) Administered Medications Albuterol (Albut/Ipratrop 3mg/0.5mg Neb 3 Ml Vial) 3 ml INH Q6R CARMEN Stop: 08/05/22 00:59 Last Admin: 07/06/22 01:02 Dose: 3 ml Documented By: MILA Apixaban (Apixaban 2.5 Mg Tab) 2.5 mg PO BID CARMEN Stop: 08/04/22 23:44 Last Admin: 07/06/22 00:31 Dose: 2.5 mg Documented By: JOSEPHINE Metoprolol Succinate (Metoprolol Succ 50mg Ext Rel Tab) 100 mg PO Q12H CARMEN Stop: 08/04/22 23:32 Last Admin: 07/06/22 00:33 Dose: 100 mg Documented By: JOSEPHINE Discontinued Medications Apixaban (Apixaban 5 Mg Tablet) 5 mg PO BID CARMEN Stop: 08/04/22 23:32 Last Admin: 07/06/22 00:39 Dose: Not Given Documented By: JOSEPHINE Azithromycin (Azithromycin 250 Mg Tab) 500 mg PO NOW ONE Stop: 07/05/22 23:34 Last Admin: 07/06/22 00:30 Dose: 500 mg Documented By: JOSEPHINE Furosemide (Furosemide 40 Mg/4 Ml Vial) 40 mg IV ONE ONE Stop: 07/05/22 23:37 Last Admin: 07/06/22 00:34 Dose: 40 mg Documented By: JOSEPHINE Guaifenesin (Guaifenesin 600 Mg Tabcr) 1,200 mg PO NOW STA Stop: 07/05/22 23:57 Last Admin: 07/06/22 00:32 Dose: 1,200 mg Documented By: DP Imaging Data Radiologist's Impression: Chest X-Ray 07/05/22 16:21 XR chest 2V PA/lateral CLINICAL HISTORY: Chest pain, nonspecific TECHNIQUE: 2 views of the chest were obtained. Comparison: Comparison is made to chest radiograph 03/08/2022 FINDINGS: Dual lead pacemaker is seen. Cardiomegaly is noted. The aortic arch is calcified. The lungs are clear. No evidence of pleural effusion or pneumothorax. IMPRESSION: No acute chest disease. Cardiomegaly is noted. ACT 112: Negative or not required by law. Electronically signed by: Ernesto Uribe M.D. 07/05/2022 8:51 PM Discharge Plan Visit Data Chief Complaint: Referred by Doctor Stated Complaint: REFERRED BY DOCTOR, OXYGEN TANK NEEDED ED Provider: Sudheer De La Rosa Discharge Problem: Acute dyspnea, CHF (congestive heart failure), CHESTER (acute kidney injury), Anemia Discharge Instructions Interventions: ED Discharge Assessment Last Done: 07/05/22 23:34
--- NOTE | 2022-07-05 21:48 | History & Physical Report ---
Date of Service July 05, 2022 Assessment & Plan (1) Acute on chronic respiratory failure with hypoxia: Plan: Chronically requires 3-4L/min nasal cannula at home but has been hypoxic to 80s and with SOB at rest requiring 4-5L/min nasal cannula. Suspect multiple et iologies: 1. Acute COPD exacerbation: worsening productive cough, hypoxia/SOB, wheezes on exam, 20 pack year smoking history and known COPD, with symptoms improved somewhat with nebs at home. - COVID-19 negative and CXR without evidence for PNA - check respiratory Biofire - give Duonebs now, and continue with Duonebs Q6H scheduled and Q2H PRN - give SoluMedrol 60mg IV now, then continue with 40mg IV Q8H - start 5-day Z-pack - pulmonary toilet: Mucinex BID, flutter valve, incentive spirometry - wean supplemental O2 as able to maintain sats >88% (chronic 3-4L/min requirement at home both at rest and with exertion) - continue home inhalers 2. ?Acute CHF: worsening LE edema, orthopnea, hypoxia/SOB x several weeks, despite trial of increased Lasix to 40mg PO BID for several weeks. F/w [facility]. - dry weight is ~86-87kg and currently at 93kg - TTE on 02/2022 with EF 50-55% - check TTE again now - give Lasix 40mg IV now and continue with 40mg IV daily starting tomorrow AM - strict I/Os, daily weights/BMP, heart-healthy diet/2g Na restriction (2) Acute kidney injury superimposed on CKD: Plan: Cr 2, up from baseline 1.3 - 1.5. Suspect pre-renal injury due to acute CHF. - trend BMP now (Cr was 2 earlier today) and again in AM - trend BMP daily - Lasix IV as stated above - avoid nephrotoxins (3) Left arm swelling: Plan: Symptoms x1 week, without associated warmth/redness/tenderness. - check US for DVT vs lymphedema - trend clinically (4) Leg edema: Plan: Bilateral LE edema, chronic, but worsening for several weeks. With suspicion for acute CHF as stated above, but suspect large component of venous stasis as patient is wheelchair-bound. - Lasix as stated above - ordered PT/OT (5) Paroxysmal atrial fibrillation: Plan: S/p PPM earlier this year. Currently rate-controlled. - decrease Eliquis to 2.5mg PO BID for now, given CKD (Cr >1.5) and advanced age - continue home Metoprolol/Diltiazem (6) T2DM (type 2 diabetes mellitus): Plan: A1c 6.6. Hold home meds and utilize SSI while hospitalized (7) Anemia: Plan: Chronic iron deficiency anemia. Continue home ferrous sulfate. (8) Hypertension: Plan: Normotensive while here. Continue home BB/CCB as stated above. (9) Hyperlipidemia: Plan: Continue home statin. Plan FEN/GI: heart-healthy/DM2/Na-restricted diet DVT Prophylaxis: Eliquis Code Status: full code Disposition: med/tele, PT/OT ordered History of Present Illness Chief Complaint: referred by doctor Primary Care Provider: Irina Vivar MD Coco Sanchez is a 81yo female with PMHx significant for paroyxmal a-fib and sick sinus syndrome (s/p PPM in 2021, on Eliquis, BB and CCB), LE edema with ?chronic HFpEF (TTE in 02/28 with EF 50-55%, LA dilation and elevated RVSP 40-50), COPD (on chronic 3-4L/min O2), T2DM , CKD3b (baseline Cr 1.3), MIKE, HTN, HLD, chronic incontinence, anxiety and GERD. Patient presented to [facility] ED on 07/05 for worsening productive cough, SOB and wheezing improved by taking Duonebs 2-3x per day for last 1-2 weeks, as well as worsening LE edema, orthopnea, SCOTT, increased home O2 requirement and weight gain x several weeks. Of note patient also reports left hand/forearm swelling without erythema/tenderness or decreased ROM for last week. Patient is chr onically on Lasix 40mg PO daily and had it increased to BID several weeks ago but did not tolerate increased dose. Patient saw PCP earlier in the day and was sent for admission for edema/SOB/hypoxia. Of note patient takes Eliquis for a- fib and has not missed a dose. Patient denies recent fever/chills, runny nose, congestion, dysuria, N/V, abdominal pain, diarrhea or rash. Of note patient is hard of hearing and much of today's HPI was collected with assistance of patient's friend, who is also primary log loader. Patient needs help with ADLs/iADLs and requires 24-hour assistance which is provided by the friend and the friend's sister. Patient's POA is [id number] (not present) In the ED patient was afebrile and hemodynamically stable on 4-5L/min nasal cannula. Labs ordered and pending. EKG with a-fib at 67bpm and frequent AV dual- paced complexes. CXR with cardiomegaly (chronic) but no acute chest disease. COVID-19 negative. Allergies Allergy/AdvReac Type Severity Reaction Status Date / Time Penicillins AdvReac Intermediate GI SYMPTOMS Verified 07/05/22 21:01 Home Medications Medication Instructions Recorded Confirmed Type cetirizine 10 mg tablet 10 mg PO DAILY 05/12/21 07/05/22 History cyanocobalamin (vitamin B-12) 500 1,000 mcg PO QAM #30 tabs 02/13/22 07/05/22 Rx mcg tablet apixaban 5 mg tablet (Eliquis) 5 mg PO BID #180 tabs 03/19/22 07/05/22 Rx atorvastatin 40 mg tablet 40 mg PO DAILY #90 tabs 03/19/22 07/05/22 Rx diltiazem HCl 240 mg 240 mg PO QAM #90 caps 03/19/22 07/05/22 Rx capsule,extended release 24 hr fluoxetine 20 mg capsule 20 mg PO DAILY #90 caps 03/19/22 07/05/22 Rx fluticasone furoate 200 1 inh inhalation DAILY #90 ea 03/19/22 07/05/22 Rx mcg-vilanterol 25 mcg/dose inhalation powder furosemide 40 mg tablet (Lasix) 40 mg PO DAILY #90 tabs 03/19/22 07/05/22 Rx metformin 500 mg tablet 500 mg PO BID #180 tabs 03/19/22 07/05/22 Rx omeprazole 20 mg capsule,delayed 20 mg PO DAILY #90 caps 03/19/22 07/05/22 Rx release metoprolol succinate 100 mg 100 mg PO Q12H #180 tabs 03/30/22 07/05/22 Rx tablet,extended release 24 hr montelukast 10 mg tablet 10 mg PO DAILY #90 tabs 04/26/22 07/05/22 Rx lorazepam 0.5 mg tablet 0.5 mg PO DAILY PRN anxiety #30 06/13/22 07/05/22 Rx tabs empagliflozin 10 mg tablet 10 mg PO DAILY #90 tabs 06/20/22 07/05/22 Rx ferrous sulfate 325 mg (65 mg 325 mg PO 3XWK 07/05/22 07/05/22 History iron) tablet,delayed release ketoconazole 2 % topical cream 1 applic topical BID PRN RASH 07/05/22 07/05/22 History UNDER BREASTS Past Med/Surg History Medical History (Updated 07/06/22 @ 01:14 by Sudheer De La Rosa DO) Anxiety Atrial fibrillation CKD stage G3b/A3, GFR 30-44 and albumin creatinine ratio >300 mg/g COPD (chronic obstructive pulmonary disease) Diabetes mellitus Hyperlipidemia Hypertension T2DM (type 2 diabetes mellitus) Surgical History No pertinent past surgical history S/P cataract extraction Status post cardiac pacemaker procedure Family History Other Colorectal cancer Hypertension Kidney disease Lung disease Prostate cancer Denies family history of Breast cancer Social History Smoking Status: Never smoker Cigarettes Per Day: smoked for 60 years; Second Hand Exposure: Yes; Hx Alcohol Use: No Hx Substance Use: No Preferred Language: Setswana Communication Ability: Effective Model Technician Required: No Beliefs That Will Affect Care: None marital status: / Current Living Situation: Alone current occupational status: retired Other Information That Helps Us Care for You: No Feels Safe at Home: Yes Safety Concerns: Feels Safe At This Time caffeine: No Dental Care, Regularly: Yes Seatbelt Use: always Sunscreen Use: No Assistive Devices: Cane, Oxygen - Continuous and Walker Review of Systems Review of Systems: All systems reviewed & are unremarkable except as noted in HPI & below Physical Exam Physical Exam: General: A&Ox3. NAD. Cooperative. Obese. HEENT: Atraumatic, normocephalic. Pulm: CTAB A&P. -wheezes, -rales, -rhonchi. Symmetrical chest rise. No increase work of breathing. No respiratory distress. Cardiac: RRR, -mrg. Radial pulses intact and symmetrical. Bilateral 2+ pitting edema in LEs to knees. Abdominal: soft, non-tender, non-distended, BS x 4 Left arm: non-pitting edema throughout left dorsal hand and trace edema of forearm. No erythema/warmth/tenderness. Full active and passive ROM. Skin: warm, dry, no rash Results & Data Results & Data ([facility]) Vital Signs (Past 12 Hours) Vital Signs Temp Pulse Resp BP Pulse Ox O2 Del Method 07/05/22 16:17 36.8 C 68 18 126/68 87 L Room Air Supervising Physician Co-Signing Physician Notes I supervised Gene Figueroa MD on this admission. I interviewed and examined the patient independently of him. The plan is as written in the note except for any following changes/exceptions: None 81yo F w/ hx of COPD who presents with shortness of breath. Wheezing on exam, but also with elevated BNP. Will treat for both COPD + CHF. Resident Activity Tracking Resident Involvement: Resident Care Provided Care Provided: Adult Hospital Medicine (1) Anemia Anemia type: unspecified type Qualified Code(s): D64.9 - Anemia, unspecified
[2022-07-05] MEDS ORDERED: methylPREDNISolone 125 MG/2 ML VIAL IV STA (22:28)
[2022-07-05] MEDS ORDERED: ALBUT/IPRATROP 3MG/0.5MG NEB 3 ML VIAL NEB STA (22:28)
[2022-07-05] MEDS ORDERED: GLUCAGON FOR INJ 1 MG VIAL SQ PRN (23:33)
[2022-07-05] MEDS ORDERED: DEXTROSE 50% 50 ML SYRINGE IV PRN (23:33)
[2022-07-05] MEDS ORDERED: ALBUT/IPRATROP 3MG/0.5MG NEB 3 ML VIAL NEB PRN (23:33)
[2022-07-05] MEDS ORDERED: GLUCOSE 10 TAB/TUBE PO PRN (23:33)
[2022-07-05] MEDS ORDERED: AZITHROMYCIN 250 MG TAB PO ONE (23:33)
[2022-07-05] MEDS ORDERED: GLUCOSE 40% GEL 15 GM TUBE PO PRN (23:33)
[2022-07-05] MEDS ORDERED: CARBOHYDRATES FOR HYPOGLYCEMIA PO PRN (23:33)
[2022-07-05] MEDS ORDERED: APIXABAN 5 MG TABLET PO SCH (23:33)
[2022-07-05] MEDS ORDERED: FUROSEMIDE 40 MG/4 ML VIAL IV ONE (23:36)
[2022-07-05] MEDS ORDERED: guaiFENesin 600 MG TABCR PO STA (23:56)
[2022-07-06] MEDS: APIXABAN 2.5 MG TAB PO SCH ×3 (00:31→20:54)
[2022-07-06] MEDS: METOPROLOL SUCC 50MG EXT REL TAB PO SCH ×3 (00:33→20:56)
[2022-07-06] MEDS ORDERED: MAGNESIUM SULFATE / D5W 1 GM/100 ML BAG IV ONE (00:42)
[2022-07-06 00:43] LABS: Alanine Aminotransferase 8 U/L (7-52); Albumin Globulin Ratio 1.1 (0.9-2); Albumin Level 3.9 gm/dl (3.4-5.0); Alkaline Phosphatase 102 U/L (34-104); Anion Gap 11 (3-11); Aspartate Aminotransferase 12 U/L (13-39); BUN Creatinine Ratio 21.8 (10-20); Bilirubin,Total 0.7 mg/dl (0.2-1.0); Blood Urea Nitrogen 44 mg/dl (6-23); Calcium 9.1 mg/dl (8.5-10.1); Carbon Dioxide 28 mmol/L (21-32); Chloride 97 mmol/L (98-107); Est GFR (African American) 25.8 ml/min; Est GFR (Non-African American) 22.2 ml/min; Globulin 3.4 gm/dl (2.5-4.0); Glucose 110 mg/dl (70-99(Fasting)); Potassium 4.6 mmol/L (3.5-5.1); Sodium 136 mmol/L (136-145); Total Protein 7.3 gm/dl (6.0-8.3)
[2022-07-06] MEDS: ALBUT/IPRATROP 3MG/0.5MG NEB 3 ML VIAL INH SCH ×4 (01:02→18:28)
[2022-07-06 01:10] LABS: Hematocrit (blood only) 34.6 % (34.1-44.9); Mean Corpuscular Hemoglobin 23.9 pg (25.0-34.0); Mean Corpuscular Hgb Conc 28.9 g/dL (32.0-36.0); Mean Corpuscular Volume 82.6 fL (80.0-100.0); Mean Platelet Volume 11.9 fL (9.4-12.3); Platelet Count 313 K/uL (130-400); RDW Coefficient of Variation 17.2 % (11.5-14.5); RDW Standard Deviation 51.2 fL (36.4-46.3); Red Blood Count 4.19 M/uL (3.93-5.22); White Blood Count 12.47 K/ul (4.8-10.8)
[2022-07-06 01:12] LABS: Acanthocytes 1+; Basophils # (auto) 0.07 K/uL (0-0.2); Basophils % (auto) 0.6 %; Eosinophils # (auto) 0.08 K/uL (0-0.50); Eosinophils % (auto) 0.6 %; Hypochromasia Present; Immature Granulocytes # (auto) 0.05 K/uL (0.00-0.02); Immature Granulocytes % (auto) 0.4 %; Lymphocytes # (auto) 1.55 K/uL (1.2-3.4); Lymphocytes % (auto) 12.4 %; Monocytes # (auto) 1.35 K/uL (0.24-0.82); Monocytes % (auto) 10.8 %; Neutrophils # (auto) 9.37 K/uL (1.4-6.5); Neutrophils % (auto) 75.2 %; Polychromasia 1+
[2022-07-06 01:48] LABS: Adenovirus PCR Not Detected (NotDetected); Bordetella parapertussis PCR Not Detected (NotDetected); Bordetella pertussis PCR Not Detected (NotDetected); Chlamydia pneumoniae PCR Not Detected (NotDetected); Coronavirus 229E PCR Not Detected (NotDetected); Coronavirus CoV-2 (COVID19)PCR Not Detected (NotDetected); Coronavirus HKU1 PCR Not Detected (NotDetected); Coronavirus NL63 PCR Not Detected (NotDetected); Coronavirus OC43PCR Not Detected (NotDetected); Human Metapneumovirus PCR Not Detected (NotDetected); Influenza A PCR Not Detected (NotDetected); Influenza B PCR Not Detected (NotDetected); Mycoplasma pneumoniae PCR Not Detected (NotDetected); Parainfluenza Virus 1 PCR Not Detected (NotDetected); Parainfluenza Virus 2 PCR Not Detected (NotDetected); Parainfluenza Virus 3 PCR Not Detected (NotDetected); Parainfluenza Virus 4 PCR Not Detected (NotDetected); Respiratory Syncytial VirusPCR Not Detected (NotDetected); Rhinovirus/Enterovirus PCR Not Detected (NotDetected)
[2022-07-06] MEDS: Patient's HEIGHT &/or WEIGHT Needed SCH ×3 (01:52→06:32)
--- NOTE | 2022-07-06 01:54 | Billing Data ---
Date of Service July 05, 2022 Coding Level of Care Code 33390 Initial Inpt Care Lvl 3
[2022-07-06 01:59] LABS: INR 1.5 (0.9-1.1); Partial Thromboplastin Ratio 1.1; Partial Thromboplastin Time 31.5 Seconds (21.0-31.0); Prothrombin Time 16.1 Seconds (9.0-12.0)
[2022-07-06] MEDS ORDERED: methylPREDNISolone 40 MG in SYRINGE 0 ML IV SCH (06:00)
[2022-07-06 06:46] LABS: BUN Creatinine Ratio 21.9 (10-20); Calcium 9.1 mg/dl (8.5-10.1); Creatinine Clr Calc Pharmacy 23.6 ml/min; Est GFR (African American) 26.7 ml/min; Est GFR (Non-African American) 23.1 ml/min; Potassium 4.7 mmol/L (3.5-5.1)
[2022-07-06 06:56] LABS: Hematocrit (blood only) 33.7 % (34.1-44.9); Hemoglobin 9.7 g/dl (12.0-16.0); Mean Corpuscular Hemoglobin 23.5 pg (25.0-34.0); Mean Corpuscular Hgb Conc 28.8 g/dL (32.0-36.0); Mean Corpuscular Volume 81.6 fL (80.0-100.0); Mean Platelet Volume 11.5 fL (9.4-12.3); Platelet Count 287 K/uL (130-400); RDW Coefficient of Variation 17.2 % (11.5-14.5); RDW Standard Deviation 50.4 fL (36.4-46.3); Red Blood Count 4.13 M/uL (3.93-5.22); White Blood Count 10.85 K/ul (4.8-10.8)
[2022-07-06 06:57] LABS: Acanthocytes 1+; Basophils # (auto) 0.02 K/uL (0-0.2); Basophils % (auto) 0.2 %; Eosinophils # (auto) 0.02 K/uL (0-0.50); Eosinophils % (auto) 0.2 %; Immature Granulocytes # (auto) 0.06 K/uL (0.00-0.02); Immature Granulocytes % (auto) 0.6 %; Lymphocytes # (auto) 0.81 K/uL (1.2-3.4); Lymphocytes % (auto) 7.5 %; Monocytes # (auto) 0.23 K/uL (0.24-0.82); Monocytes % (auto) 2.1 %; Neutrophils # (auto) 9.71 K/uL (1.4-6.5); Neutrophils % (auto) 89.4 %; Polychromasia 1+
--- NOTE | 2022-07-06 07:06 | Ultrasound Report ---
US venous doppler UE LT CLINICAL HISTORY: LUE swelling PROCEDURE: Left upper extremity real-time compression venous ultrasound with Duplex and Color Doppler imaging. Comparison: None available at the time of this dictation. FINDINGS: Utilizing real-time ultrasonic imaging multiple real time high-resolution ultrasonic images of the de ep venous system were performed from the forearm through the subclavian vein including evaluation of the jugular vein. Compression real time ultrasonic imaging was performed in addition to color Dopple r imaging and duplex Doppler ultrasound with velocity spectral profile analysis. There is normal compressibility of the deep venous system from the forearm through the subclavian vei n. Normal vascular flow is currently identified. Soft tissue edema is seen in the lower extremity. Impression: No evidence of deep venous thrombus. ACT 112: Negative or not required by law. Electronically signed by: Ernesto Uribe M.D. 07/06/2022 7:05 AM
--- NOTE | 2022-07-06 07:40 | Hospitalist Progress Note ---
Date of Service July 06, 2022 Assessment & Plan (1) Acute on chronic respiratory failure with hypoxia: Plan: Coco Sanchez is a 81yo female with PMHx significant for paroxysmal a-fib and sick sinus syndrome (s/p PPM in 2021, on Eliquis, BB and CCB), LE edema with ?chronic HFpEF (TTE in 02/28 with EF 50-55%, LA dilation and elevated RVSP 40-50), COPD (on chronic 3-4L/min O2), T2DM, CKD3b (baseline Cr 1.3), MIKE, HTN, HLD, chronic incontinence, anxiety and GERD. Chronically requires 3-4L/min nasal cannula at home but has been hypoxic to 80s and with SOB at rest requiring 4-5L/min nasal cannula now admitted for COPD and CHF exacerbation now satting well on 2L NC with concerns about LUE swelling of 1 week duration. Of note patient is hard of hearing and much of the history was collected with assistance of patient's friend, who is also primary software quality automation engineer. Patient needs help with ADLs/iADLs and requires 24-hour assistance which is provided by the friend and the friend's sister. Patient's POA is [id number] (not present) #Acute on Chronic Respiratory Failure - multifactorial #Acute COPD exacerbation: worsening productive cough, hypoxia/SOB, wheezes on exam, 20 pack year smoking history and known COPD, with symptoms improved somewhat with nebs at home. [] COVID-19 negative and CXR without evidence for PNA. BioFire negative. [] Duonebs Q6H scheduled and Q2H PRN [] SoluMedrol 60mg IV x1, then 40mg IV Q8H x2 days, clinically improving - transition to prednisone 40 mg for 5 total days of steroids [] start 5-day Z-pack, last dose will be 07/09 [] pulmonary toilet: Mucinex BID, flutter valve, incentive spirometry [] wean supplemental O2 as able to maintain sats >88% (chronic 3-4L/min requirement at home both at rest and with exertion) [] continue home inhalers #?Acute CHF: worsening LE edema, orthopnea, hypoxia/SOB x several weeks, despite trial of increased Lasix to 40mg PO BID for several weeks. F[facility]. [] dry weight is ~86-87kg and currently at 93kg [] TTE on 02/2022 with EF 50-55% - repeat TTE [] Lasix 40 mg IV BID [] strict I/Os, daily weights/BMP, heart-healthy diet/2g Na restriction #CHESTER superimposed on CKD Cr 2, up from baseline 1.3 - 1.5. Patient is fluid overloaded in the extravascular space and dry in the intravascular space. Diuresis should improve kidney function as fluid is moved from the extracellular space to the intracellular space. Continue to monitor. [] AM BMP [] diuresis as above [] avoid nephrotoxins #Left arm swelling Symptoms x1 week, without associated warmth/redness/tenderness. [] US negative for DVT [] monitor clinically #Leg edema Bilateral LE edema, chronic, but worsening for several weeks. With suspicion for acute CHF as stated above, but suspect large component of venous stasis as patient is wheelchair-bound. [] diuresis as above [] PT/OT #Paroxysmal a. fib S/p PPM earlier this year. Currently rate-controlled. EKG with a-fib at 67bpm and frequent AV dual-paced complexes. CXR with cardiomegaly (chronic) but no acute chest disease. [] decrease Eliquis to 2.5mg PO BID for now, given CKD (Cr >1.5) and advanced age [] continue home Metoprolol/Diltiazem #TIIDM A1c 6.6. Hold home meds and utilize SSI while hospitalized #Anemia Chronic iron deficiency anemia. Continue home ferrous sulfate. #HTN Normotensive while here. Continue home BB/CCB as stated above. #HLD Continue home statin. FEN/GI: heart-healthy/DM2/Na-restricted diet DVT Prophylaxis: Eliquis Code Status: full code Disposition: med/tele, PT/OT ordered (2) Acute kidney injury superimposed on CKD: (3) Left arm swelling: (4) Leg edema: (5) Paroxysmal atrial fibrillation: (6) T2DM (type 2 diabetes mellitus): (7) Anemia: (8) Hypertension: (9) Hyperlipidemia: Admission and Anticipated Discharge Date Admission Date: July 05, 2022 Supervising Physician Co-Signing Physician Notes Patient seen and examined independently of PGY-1 Dr. Hill. Agree with history, exam findings, assessment and plan of care. In brief, Ms. Sanchez is an 81 year old female with history of HF, COPD (on 3-4 L at baseline), CKD, pAF, DM2 admitted with dyspnea, hypoxia, lower extremity edema. This afternoon, she reports her breathing is improved and her lower extremity of left upper extremity edema is improved. VS and nursing notes reviewed. Heart with regular and rhythm. +2 edema to the knee bilaterally. Left arm with pitting edema down to the fingers/palm. Breathing easily on 3L of O2. Good air movement. Coarse breath sounds throughout with slight end expiratory wheezes. Labs and imaging reviewed. 1. acute on chronic respiratory failure secondary to COPD exacerbation and heart failure exacerbation. 2. COPD exacerbation. At baseline uses 3-4L O2. RVP neg. Continue with duonebs q6h and q2h PRN. Solumedrol today, switch to prednisone 40mg tomorrow. Continue azithromycin. 3. HFrEF. Dry weight is 86 to 87kg. On admission was 93kg. NBP 2827. CXR with pulmonary edema. Repeat Echo this admission with EF 25-30% (This is a significant decrease from TTE in February). Moderate to severe global hypokinesis of the left ventricle, septal dyskinesis, LA moderately dilated, RA moderate to severely dilated. Consult cardiology givne new severe decrease in cardiac function. Continue with IV Lasix 40mg BID. Monitor renal function. 4. CHESTER on CKD. Fluid overloaded, but likely she is intravascularly dry. Baseline Cr is 1.3-1.5. Continue with diuresis, monitor eGFR. 5. L arm swelling, Doppler negative for DVT. Likely this is asymmetric edema from her HF. 6. pAF. rated controlled with home metoprolol and diltiazem. Decreased Eliquis to 2.5mg BID given her decreased renal function. 7. DM2. sliding scale insulin. Dispo: pending clinical improvement. Subjective Patient is extremely hard of hearing. Minimal history obtained. Patient does note that her breathing is a little better. Review of Systems Review of Systems: See HPI Physical Exam Physical Exam: General: A&Ox3. NAD. Cooperative. Obese. HEENT: Atraumatic, normocephalic. Pulm: CTAB A&P. -wheezes, -rales, -rhonchi. Symmetrical chest rise. No increase work of breathing. No respiratory distress. Cardiac: RRR, -mrg. Radial pulses intact and symmetrical. Bilateral 3+ pitting edema in LEs to knees. Abdominal: soft, non-tender, non-distended Left arm: trace to 1+ edema throughout left dorsal hand and trace edema of forearm. No erythema/warmth/tenderness. Full active and passive ROM. Skin: warm, dry, no rash Results & Data Results & Data ([facility]) Vital Signs (Past 12 Hours) Vital Signs Pulse Pulse Resp BP BP Pulse Ox O2 Del Method 07/06/22 07:24 73 20 98 Nasal Cannula 07/06/22 06:03 83 12 146/88 H 98 Nasal Cannula 07/06/22 05:31 85 19 122/62 99 Nasal Cannula 07/06/22 04:30 81 19 114/98 96 Nasal Cannula 07/06/22 04:01 79 19 111/65 97 Nasal Cannula 07/06/22 03:30 73 19 136/78 96 Nasal Cannula 07/06/22 03:01 71 21 121/59 L 96 Nasal Cannula 07/06/22 02:31 61 17 124/83 96 Nasal Cannula 07/06/22 02:01 80 20 138/88 96 Nasal Cannula 07/06/22 01:56 Nasal Cannula 07/06/22 01:32 71 21 103/81 97 Nasal Cannula 07/06/22 01:21 84 22 103/76 98 Nasal Cannula 07/06/22 00:31 78 23 147/84 H 98 Nasal Cannula 07/06/22 00:17 19 154/122 H 99 Nasal Cannula 07/06/22 01:29 85 19 154/122 H 99 Nasal Cannula 07/06/22 01:06 76 20 97 Nasal Cannula 07/05/22 23:45 89 18 165/65 H 97 Nasal Cannula 07/05/22 22:01 97 Nasal Cannula 07/05/22 21:51 100 Room Air 07/05/22 21:51 88 19 126/81 100 Nasal Cannula O2 Flow Rate 07/06/22 07:24 3 07/06/22 06:03 4 07/06/22 05:31 4 07/06/22 04:30 4 07/06/22 04:01 4 07/06/22 03:30 4 07/06/22 03:01 4 07/06/22 02:31 4 07/06/22 02:01 4 12/28/22 01:56 4 07/06/22 01:32 4 07/06/22 01:21 4 07/06/22 00:31 4 07/06/22 00:17 4 07/06/22 01:29 4 07/06/22 01:06 3 07/05/22 23:45 4 07/05/22 22:01 4 07/05/22 21:51 07/05/22 21:51 4 Laboratory Results 07/06/22 07/06/22 07/06/22 Range/Units 05:55 05:55 01:21 WBC 10.85 H (4.8-10.8) K/ul RBC 4.13 (3.93-5.22) M/uL Hgb 9.7 L (12.0-16.0) g/dl Hct 33.7 L (34.1-44.9) % MCV 81.6 (80.0-100.0) fL MCH 23.5 L (25.0-34.0) pg MCHC 28.8 L (32.0-36.0) g/dL RDW Std Deviation 50.4 H (36.4-46.3) fL RDW Coeff of [place] 17.2 H (11.5-14.5) % Plt Count 287 (130-400) K/uL MPV 11.5 (9.4-12.3) fL Immature Gran % (Auto) 0.6 % Neut % (Auto) 89.4 % Lymph % (Auto) 7.5 % [place] % (Auto) 2.1 % Eos % (Auto) 0.2 % Baso % (Auto) 0.2 % Neut # (Auto) 9.71 H (1.4-6.5) K/uL Lymph # (Auto) 0.81 L (1.2-3.4) K/uL [place] # (Auto) 0.23 L (0.24-0.82) K/uL Eos # (Auto) 0.02 (0-0.50) K/uL Baso # (Auto) 0.02 (0-0.2) K/uL Immature Gran # (Auto) 0.06 H (0.00-0.02) K/uL Polychromasia 1+ Hypochromasia Acanthocytes (Spur) 1+ PT 16.1 H INR 1.5 H APTT 31.5 H PTT Ratio 1.1 Sodium 136 (136-145) mmol/L Potassium 4.7 (3.5-5.1) mmol/L Chloride 97 L (98-107) mmol/L Carbon Dioxide 30 (21-32) mmol/L Anion Gap 9 (3-11) BUN 43 H (6-23) mg/dl Creatinine 1.96 H (0.6-1.2) mg/dl Est Cr Clr Drug Dosing 23.6 Est GFR ( Amer) 26.7 ml/min Est GFR (Non-Af Amer) 23.1 ml/min BUN/Creatinine Ratio 21.9 H (10-20) Glucose 131 H (70-99(Fasting)) mg/dl Lactate (0.4-2.0) mmol/L Calcium 9.1 (8.5-10.1) mg/dl Magnesium 2.0 (1.7-2.4) mg/dl Total Bilirubin (0.2-1.0) mg/dl AST (13-39) U/L ALT (7-52) U/L Alkaline Phosphatase (34-104) U/L Troponin I High Sens (0-14) pg/ml B-Natriuretic Peptide (0-100) pg/ml Total Protein (6.0-8.3) gm/dl Albumin (3.4-5.0) gm/dl Globulin (2.5-4.0) gm/dl Albumin/Globulin Ratio (0.9-2) Adenovirus (PCR) (NotDetected) B. pertussis DNA (PCR) (NotDetected) B.parapertussis DNA PCR (NotDetected) C. pneumoniae DNA (PCR) (NotDetected) Coronavirus OC43 (PCR) (NotDetected) Coronavirus HKU1 (PCR) (NotDetected) Coronavirus 229E (PCR) (NotDetected) SARS-CoV-2 (PCR) (NotDetected) Coronavirus NL63 (PCR) (NotDetected) Human Metapneumovir PCR (NotDetected) Influenza Type A (PCR) (NotDetected) Influenza Type B (PCR) (NotDetected) M. pneumoniae (PCR) (NotDetected) Parainfluenza 1 (PCR) (NotDetected) Parainfluenza 2 (PCR) (NotDetected) Parainfluenza 3 (PCR) (NotDetected) Parainfluenza 4 (PCR) (NotDetected) RSV (PCR) (NotDetected) Entero/Rhino (PCR) (NotDetected) SARS-CoV-2, RNA, NAAT (NEGATIVE) 07/06/22 07/06/22 07/06/22 Range/Units 00:00 00:00 00:00 WBC (4.8-10.8) K/ul RBC (3.93-5.22) M/uL Hgb (12.0-16.0) g/dl Hct (34.1-44.9) % MCV (80.0-100.0) fL MCH (25.0-34.0) pg MCHC (32.0-36.0) g/dL RDW Std Deviation (36.4-46.3) fL RDW Coeff of [place] (11.5-14.5) % Plt Count (130-400) K/uL MPV (9.4-12.3) fL Immature Gran % (Auto) % Neut % (Auto) % Lymph % (Auto) % [place] % (Auto) % Eos % (Auto) % Baso % (Auto) % Neut # (Auto) (1.4-6.5) K/uL Lymph # (Auto) (1.2-3.4) K/uL [place] # (Auto) (0.24-0.82) K/uL Eos # (Auto) (0-0.50) K/uL Baso # (Auto) (0-0.2) K/uL Immature Gran # (Auto) (0.00-0.02) K/uL Polychromasia Hypochromasia Acanthocytes (Spur) PT INR APTT PTT Ratio Sodium (136-145) mmol/L Potassium (3.5-5.1) mmol/L Chloride (98-107) mmol/L Carbon Dioxide (21-32) mmol/L Anion Gap (3-11) BUN (6-23) mg/dl Creatinine (0.6-1.2) mg/dl Est Cr Clr Drug Dosing Est GFR ( Amer) ml/min Est GFR (Non-Af Amer) ml/min BUN/Creatinine Ratio (10-20) Glucose (70-99(Fasting)) mg/dl Lactate 1.7 (0.4-2.0) mmol/L Calcium (8.5-10.1) mg/dl Magnesium 1.7 (1.7-2.4) mg/dl Total Bilirubin (0.2-1.0) mg/dl AST (13-39) U/L ALT (7-52) U/L Alkaline Phosphatase (34-104) U/L Troponin I High Sens (0-14) pg/ml B-Natriuretic Peptide 2827 H (0-100) pg/ml Total Protein (6.0-8.3) gm/dl Albumin (3.4-5.0) gm/dl Globulin (2.5-4.0) gm/dl Albumin/Globulin Ratio (0.9-2) Adenovirus (PCR) (NotDetected) B. pertussis DNA (PCR) (NotDetected) B.parapertussis DNA PCR (NotDetected) C. pneumoniae DNA (PCR) (NotDetected) Coronavirus OC43 (PCR) (NotDetected) Coronavirus HKU1 (PCR) (NotDetected) Coronavirus 229E (PCR) (NotDetected) SARS-CoV-2 (PCR) (NotDetected) Coronavirus NL63 (PCR) (NotDetected) Human Metapneumovir PCR (NotDetected) Influenza Type A (PCR) (NotDetected) Influenza Type B (PCR) (NotDetected) M. pneumoniae (PCR) (NotDetected) Parainfluenza 1 (PCR) (NotDetected) Parainfluenza 2 (PCR) (NotDetected) Parainfluenza 3 (PCR) (NotDetected) Parainfluenza 4 (PCR) (NotDetected) RSV (PCR) (NotDetected) Entero/Rhino (PCR) (NotDetected) SARS-CoV-2, RNA, NAAT (NEGATIVE) 07/06/22 07/06/22 07/06/22 Range/Units 00:00 00:00 00:00 WBC 12.47 H (4.8-10.8) K/ul RBC 4.19 (3.93-5.22) M/uL Hgb 10.0 L (12.0-16.0) g/dl Hct 34.6 (34.1-44.9) % MCV 82.6 (80.0-100.0) fL MCH 23.9 L (25.0-34.0) pg MCHC 28.9 L (32.0-36.0) g/dL RDW Std Deviation 51.2 H (36.4-46.3) fL RDW Coeff of [place] 17.2 H (11.5-14.5) % Plt Count 313 (130-400) K/uL MPV 11.9 (9.4-12.3) fL Immature Gran % (Auto) 0.4 % Neut % (Auto) 75.2 % Lymph % (Auto) 12.4 % [place] % (Auto) 10.8 % Eos % (Auto) 0.6 % Baso % (Auto) 0.6 % Neut # (Auto) 9.37 H (1.4-6.5) K/uL Lymph # (Auto) 1.55 (1.2-3.4) K/uL [place] # (Auto) 1.35 H (0.24-0.82) K/uL Eos # (Auto) 0.08 (0-0.50) K/uL Baso # (Auto) 0.07 (0-0.2) K/uL Immature Gran # (Auto) 0.05 H (0.00-0.02) K/uL Polychromasia 1+ Hypochromasia Present Acanthocytes (Spur) 1+ PT Cancelled INR Cancelled APTT Cancelled PTT Ratio Cancelled Sodium 136 (136-145) mmol/L Potassium 4.6 (3.5-5.1) mmol/L Chloride 97 L (98-107) mmol/L Carbon Dioxide 28 (21-32) mmol/L Anion Gap 11 (3-11) BUN 44 H (6-23) mg/dl Creatinine 2.02 H (0.6-1.2) mg/dl Est Cr Clr Drug Dosing Not Reportable Est GFR ( Amer) 25.8 ml/min Est GFR (Non-Af Amer) 22.2 ml/min BUN/Creatinine Ratio 21.8 H (10-20) Glucose 110 H (70-99(Fasting)) mg/dl Lactate (0.4-2.0) mmol/L Calcium 9.1 (8.5-10.1) mg/dl Magnesium (1.7-2.4) mg/dl Total Bilirubin 0.7 (0.2-1.0) mg/dl AST 12 L (13-39) U/L ALT 8 (7-52) U/L Alkaline Phosphatase 102 (34-104) U/L Troponin I High Sens 9.0 (0-14) pg/ml B-Natriuretic Peptide (0-100) pg/ml Total Protein 7.3 (6.0-8.3) gm/dl Albumin 3.9 (3.4-5.0) gm/dl Globulin 3.4 (2.5-4.0) gm/dl Albumin/Globulin Ratio 1.1 (0.9-2) Adenovirus (PCR) (NotDetected) B. pertussis DNA (PCR) (NotDetected) B.parapertussis DNA PCR (NotDetected) C. pneumoniae DNA (PCR) (NotDetected) Coronavirus OC43 (PCR) (NotDetected) Coronavirus HKU1 (PCR) (NotDetected) Coronavirus 229E (PCR) (NotDetected) SARS-CoV-2 (PCR) (NotDetected) Coronavirus NL63 (PCR) (NotDetected) Human Metapneumovir PCR (NotDetected) Influenza Type A (PCR) (NotDetected) Influenza Type B (PCR) (NotDetected) M. pneumoniae (PCR) (NotDetected) Parainfluenza 1 (PCR) (NotDetected) Parainfluenza 2 (PCR) (NotDetected) Parainfluenza 3 (PCR) (NotDetected) Parainfluenza 4 (PCR) (NotDetected) RSV (PCR) (NotDetected) Entero/Rhino (PCR) (NotDetected) SARS-CoV-2, RNA, NAAT (NEGATIVE) 07/05/22 07/05/22 Range/Units 23:40 21:39 WBC (4.8-10.8) K/ul RBC (3.93-5.22) M/uL Hgb (12.0-16.0) g/dl Hct (34.1-44.9) % MCV (80.0-100.0) fL MCH (25.0-34.0) pg MCHC (32.0-36.0) g/dL RDW Std Deviation (36.4-46.3) fL RDW Coeff of [place] (11.5-14.5) % Plt Count (130-400) K/uL MPV (9.4-12.3) fL Immature Gran % (Auto) % Neut % (Auto) % Lymph % (Auto) % [place] % (Auto) % Eos % (Auto) % Baso % (Auto) % Neut # (Auto) (1.4-6.5) K/uL Lymph # (Auto) (1.2-3.4) K/uL [place] # (Auto) (0.24-0.82) K/uL Eos # (Auto) (0-0.50) K/uL Baso # (Auto) (0-0.2) K/uL Immature Gran # (Auto) (0.00-0.02) K/uL Polychromasia Hypochromasia Acanthocytes (Spur) PT INR APTT PTT Ratio Sodium (136-145) mmol/L Potassium (3.5-5.1) mmol/L Chloride (98-107) mmol/L Carbon Dioxide (21-32) mmol/L Anion Gap (3-11) BUN (6-23) mg/dl Creatinine (0.6-1.2) mg/dl Est Cr Clr Drug Dosing Est GFR ( Amer) ml/min Est GFR (Non-Af Amer) ml/min BUN/Creatinine Ratio (10-20) Glucose (70-99(Fasting)) mg/dl Lactate (0.4-2.0) mmol/L Calcium (8.5-10.1) mg/dl Magnesium (1.7-2.4) mg/dl Total Bilirubin (0.2-1.0) mg/dl AST (13-39) U/L ALT (7-52) U/L Alkaline Phosphatase (34-104) U/L Troponin I High Sens (0-14) pg/ml B-Natriuretic Peptide (0-100) pg/ml Total Protein (6.0-8.3) gm/dl Albumin (3.4-5.0) gm/dl Globulin (2.5-4.0) gm/dl Albumin/Globulin Ratio (0.9-2) Adenovirus (PCR) Not Detected (NotDetected) B. pertussis DNA (PCR) Not Detected (NotDetected) B.parapertussis DNA PCR Not Detected (NotDetected) C. pneumoniae DNA (PCR) Not Detected (NotDetected) Coronavirus OC43 (PCR) Not Detected (NotDetected) Coronavirus HKU1 (PCR) Not Detected (NotDetected) Coronavirus 229E (PCR) Not Detected (NotDetected) SARS-CoV-2 (PCR) Not Detected (NotDetected) Coronavirus NL63 (PCR) Not Detected (NotDetected) Human Metapneumovir PCR Not Detected (NotDetected) Influenza Type A (PCR) Not Detected (NotDetected) Influenza Type B (PCR) Not Detected (NotDetected) M. pneumoniae (PCR) Not Detected (NotDetected) Parainfluenza 1 (PCR) Not Detected (NotDetected) Parainfluenza 2 (PCR) Not Detected (NotDetected) Parainfluenza 3 (PCR) Not Detected (NotDetected) Parainfluenza 4 (PCR) Not Detected (NotDetected) RSV (PCR) Not Detected (NotDetected) Entero/Rhino (PCR) Not Detected (NotDetected) SARS-CoV-2, RNA, NAAT NEGATIVE (NEGATIVE) Diagnostic Findings Chest X-Ray 07/05/22 16:21 XR chest 2V PA/lateral CLINICAL HISTORY: Chest pain, nonspecific TECHNIQUE: 2 views of the chest were obtained. Comparison: Comparison is made to chest radiograph 03/08/2022 FINDINGS: Dual lead pacemaker is seen. Cardiomegaly is noted. The aortic arch is calcified. The lungs are clear. No evidence of pleural effusion or pneumothorax. IMPRESSION: No acute chest disease. Cardiomegaly is noted. Extremity Venous Study 07/05/22 22:12 US venous doppler UE LT CLINICAL HISTORY: LUE swelling PROCEDURE: Left upper extremity real-time compression venous ultrasound with Duplex and Color Doppler imaging. Comparison: None available at the time of this dictation. FINDINGS: Utilizing real-time ultrasonic imaging multiple real time high-resolution ultrasonic images of the deep venous system were performed from the forearm through the subclavian vein including evaluation of the jugular vein. Compression real time ultrasonic imaging was performed in addition to color Doppler imaging and duplex Doppler ultrasound with velocity spectral profile nathalia lysis. There is normal compressibility of the deep venous system from the forearm through the subclavian vein. Normal vascular flow is currently identified. Soft tissue edema is seen in the lower extremity. Impression: No evidence of deep venous thrombus. Resident Activity Tracking Resident Involvement: Resident Care Provided Care Provided: Adult [facility]
[2022-07-06] MEDS ORDERED: FUROSEMIDE 40 MG/4 ML VIAL IV SCH (09:00)
--- NOTE | 2022-07-06 09:38 | Electrocardiogram Report ---
Test Reason : Blood Pressure : / mmHG Vent. Rate : 067 BPM Atrial Rate : 070 BPM P-R Int : 000 ms QRS Dur : 078 ms QT Int : 444 ms P-R-T Axes : 000 045 100 degrees QTc Int : 469 ms Atrial fibrillation with frequent AV dual-paced complexes fusion beats Abnormal ECG When compared with ECG of 07-MAR-2022 13:46, (unconfirmed) Electronic ventricular pacemaker has replaced Sinus rhythm Confirmed by Reza Mcclendon ([id number]) on 07/06/2022 9:37:47 AM Referred By: REFERRED SELF Confirmed By:Sheldon Mcclendon
[2022-07-06] MEDS: ATORVASTATIN 40 MG TAB PO SCH (10:12)
[2022-07-06] MEDS: FERROUS SULFATE 325 MG TAB PO SCH (10:13)
[2022-07-06] MEDS: CETIRIZINE HCL 10 MG TABLET PO SCH (10:13)
[2022-07-06] MEDS: CYANOCOBALAMIN (B-12) 500 MCG TABLET PO SCH (10:13)
[2022-07-06] MEDS: FLUoxetine HCL 20 MG CAP PO SCH (10:13)
[2022-07-06] MEDS: dilTIAZem HCL 240 MG CAPCR PO SCH (10:14)
[2022-07-06] MEDS: PANTOprazole 40 MG TAB PO SCH (10:14)
[2022-07-06] MEDS: MONTELUKAST SODIUM 10 MG TABLET PO SCH (10:14)
[2022-07-06] MEDS: FLUTICASONE/VILANTEROL 200/25MCG 14 PUFFS/INHALER INH SCH (10:15)
[2022-07-06] MEDS: guaiFENesin 600 MG TABCR PO SCH ×2 (10:15→21:50)
[2022-07-06] MEDS: FUROSEMIDE 40 MG/4 ML VIAL IV SCH ×2 (10:15→19:54)
[2022-07-06] MEDS: INSULIN ASPART PER UNIT SC SCH ×4 (10:16→21:52)
--- NOTE | 2022-07-06 17:08 | XCELERA ---
[id number]
[2022-07-06] MEDS: AZITHROMYCIN 250 MG TAB PO SCH (20:56)
[2022-07-07] MEDS: ALBUT/IPRATROP 3MG/0.5MG NEB 3 ML VIAL INH SCH ×2 (00:48→07:38)
--- NOTE | 2022-07-07 07:05 | Hospitalist Progress Note ---
Date of Service July 07, 2022 Assessment & Plan (1) Acute on chronic respiratory failure with hypoxia: Plan: Coco Sanchez is a 81yo female with PMHx significant for paroxysmal a-fib and sick sinus syndrome (s/p PPM in 2021, on Eliquis, BB and CCB), LE edema with ?chronic HFpEF (TTE in 02/28 with EF 50-55%, LA dilation and elevated RVSP 40-50), COPD (on chronic 3-4L/min O2), T2DM, CKD3b (baseline Cr 1.3), MIKE, HTN, HLD, chronic incontinence, anxiety and GERD. Chronically requires 3-4L/min nasal cannula at home but has been hypoxic to 80s and with SOB at rest requiring 4-5L/min nasal cannula now admitted for COPD and CHF exacerbation now satting well on 3L NC. Of note patient is hard of hearing and much of the history was collected with assistance of patient's friend, who is also primary pipe tester. Patient needs help with ADLs/iADLs and requires 24-hour assistance which is provided by the friend and the friend's sister. Patient's POA is [id number] (not present) #Acute on Chronic Respiratory Failure - multifactorial #Acute COPD exacerbation: worsening productive cough, hypoxia/SOB, wheezes on exam, 20 pack year smoking history and known COPD, with symptoms improved somewhat with nebs at home. Per MAR review patient has not received a breathing treatment since 07/06 evening - they are currently on PRN. Patient wheezing on exam. Discussed with RN this AM, but no treatment documented. Discussed again with RN. Will put duonebs on scheduled Q6H and reevaluate respiratory status. [] COVID-19 negative and CXR without evidence for PNA. BioFire negative. [] Duonebs Q2H PRN [] add on scheduled duonebs Q6 [] SoluMedrol 60mg IV x1, then 40mg IV Q8H x2 days, clinically improving - transition to prednisone 40 mg for 5 total days of steroids [] start 5-day Z-pack, last dose will be 07/09 [] pulmonary toilet: Mucinex BID, flutter valve, incentive spirometry [] wean supplemental O2 as able to maintain sats >88% (chronic 3-4L/min requirement at home both at rest and with exertion) [] continue home inhalers #?Acute CHF: worsening LE edema, orthopnea, hypoxia/SOB x several weeks, despite trial of increased Lasix to 40mg PO BID for several weeks. F/w [facility]. [] dry weight is ~86-87kg [] TTE on 02/2022 with EF 50-55% - repeat TTE shows significant worsening of EF 25-30%. [] Lasix 40 mg IV BID [] strict I/Os, daily weights/BMP, heart-healthy diet/2g Na restriction [] cards consulted - appreciate recs #Hyponatremia Likely in the setting of hypovolemic hyponatremia. Patient is fluid overloaded in the extravascular space and dry in the intravascular space. Continue to monitor. #CHESTER superimposed on CKD Cr 2.26, up from baseline 1.3 - 1.5. Patient is fluid overloaded in the extravascular space and dry in the intravascular space. Continue to monitor. [] AM BMP [] diuresis as above [] avoid nephrotoxins #Left arm swelling Symptoms x1 week, without associated warmth/redness/tenderness. [] US negative for DVT [] monitor clinically #Leg edema Bilateral LE edema, chronic, but worsening for several weeks. With suspicion for acute CHF as stated above, but suspect large component of venous stasis as patient is wheelchair-bound. [] diuresis as above [] PT/OT #Paroxysmal a. fib s/p permanent pacemaker earlier this year. Currently rate-controlled. EKG with a-fib at 67bpm and frequent AV dual-paced complexes. CXR with cardiomegaly (chronic) but no acute chest disease. [] decrease Eliquis to 2.5mg PO BID for now, given CKD (Cr >1.5) and advanced age [] continue home Metoprolol/Diltiazem #TIIDM A1c 6.6. Hold home meds and utilize SSI while hospitalized #Anemia Chronic iron deficiency anemia. Continue home ferrous sulfate. #HTN Normotensive while here. Continue home BB/CCB as stated above. #HLD Continue home statin. FEN/GI: heart-healthy/DM2/Na-restricted diet DVT Prophylaxis: Eliquis Code Status: full code Disposition: med/tele, PT/OT ordered (2) Acute kidney injury superimposed on CKD: (3) Left arm swelling: (4) Leg edema: (5) Paroxysmal atrial fibrillation: (6) T2DM (type 2 diabetes mellitus): (7) Anemia: (8) Hypertension: (9) Hyperlipidemia: Admission and Anticipated Discharge Date Admission Date: July 05, 2022 Supervising Physician Co-Signing Physician Notes Patient seen and examined independently of PGY-1 Dr. Hill. Agree with history, exam findings, assessment and plan of care. In brief, Ms. Sanchez is an 81 year old female with history of HF, COPD (on 3-4 L at baseline), CKD, pAF, DM2 admitted with dyspnea, hypoxia, lower extremity edema. This afternoon, she reports her breathing is improved and her lower extremity of left upper extremity edema is improved. VS and nursing notes reviewed. Heart with regular and rhythm. +2 edema to the knee bilaterally. Left arm with pitting edema down to the fingers/palm. Breathing easily on 2.5L of O2. Good air movement. Coarse breath sounds throughout with end expiratory wheezes. Labs and imaging reviewed. 1. acute on chronic respiratory failure secondary to COPD exacerbation and heart failure exacerbation. 2. COPD exacerbation. At baseline uses 3-4L O2. RVP neg. Continue with duonebs q6h and q2h PRN. Solumedrol today, switch to prednisone 40mg tomorrow. Continue azithromycin. 3. HFrEF. Dry weight is 86 to 87kg. On admission was 93kg. NBP 2827. CXR minimal pulmonary edema. Repeat Echo this admission with EF 25-30% (This is a significant decrease from TTE in February). Moderate to severe global hypokinesis of the left ventricle, septal dyskinesis, LA moderately dilated, RA moderate to severely dilated. Continue with IV Lasix 40mg BID. Will need to monitor renal function (see below). Appreciate cardiology recommendations. D/C diltiazem due to cardiomyopathy. Perfusion study as an outpatient. 4. CHESTER on CKD. Fluid overloaded, but likely she is intravascularly dry. Baseline Cr is 1.3-1.5. Continue with diuresis, monitor eGFR. 5. L arm swelling, Doppler negative for DVT. Likely this is asymmetric edema from her HF. 6. pAF. rated controlled with home metoprolol and diltiazem. Decreased Eliquis to 2.5mg BID given her decreased renal function. 7. DM2. sliding scale insulin. Dispo: pending clinical improvement. Attempted to call her sister in law Kimber, but no answer. Subjective Patient is extremely hard of hearing. Minimal history obtained. Patient reports having some more difficulty breathing overnight on 2 L, back on 3 L. Review of Systems Review of Systems: See HPI Physical Exam Physical Exam: General: A&Ox3. NAD. Cooperative. Obese. HEENT: Atraumatic, normocephalic. Pulm: Coarse breath sounds. Wheezing throughout bilateral air dolan. No increase work of breathing. No respiratory distress. Cardiac: RRR, -mrg. Radial pulses intact and symmetrical. Bilateral 3+ pitting edema in LEs to knees. Abdominal: soft, non-distended Left arm: trace to 1+ edema throughout left dorsal hand and trace edema of forearm. No erythema/warmth/tenderness. Full active and passive ROM. Skin: warm, dry, no rash Results & Data Results & Data ([facility]) Vital Signs (Past 12 Hours) Vital Signs Temp Pulse Pulse Pulse Resp BP Pulse Ox 07/07/22 04:00 36.3 C L 72 20 136/81 98 07/07/22 00:48 64 96 07/06/22 22:01 60 07/06/22 21:47 75 07/06/22 23:42 07/06/22 22:19 86 20 97 07/06/22 20:53 65 23 143/64 H 95 07/06/22 20:40 82 18 95 07/06/22 20:31 72 19 95 07/06/22 20:30 68 20 94 07/06/22 20:20 71 22 95 07/06/22 20:10 74 21 96 07/06/22 20:01 72 32 H 96 07/06/22 20:00 64 22 95 07/06/22 19:50 68 26 H 95 07/06/22 19:40 97 O2 Del Method O2 Flow Rate 07/07/22 04:00 Nasal Cannula 2 07/07/22 00:48 Nasal Cannula 3 07/06/22 22:01 07/06/22 21:47 07/06/22 23:42 Nasal Cannula 3 07/06/22 22:19 Nasal Cannula 3 07/06/22 20:53 Nasal Cannula 2 07/06/22 20:40 07/06/22 20:31 07/06/22 20:30 07/06/22 20:20 07/06/22 20:10 07/06/22 20:01 07/06/22 20:00 07/06/22 19:50 07/06/22 19:40 Laboratory Results 07/07/22 07/07/22 07/07/22 Range/Units 08:19 08:19 08:19 WBC 10.02 (4.8-10.8) K/ul RBC 4.34 (3.93-5.22) M/uL Hgb 10.1 L (12.0-16.0) g/dl Hct 34.5 (34.1-44.9) % MCV 79.5 L (80.0-100.0) fL MCH 23.3 L (25.0-34.0) pg MCHC 29.3 L (32.0-36.0) g/dL RDW Std Deviation 49.5 H (36.4-46.3) fL RDW Coeff of Balbina 17.2 H (11.5-14.5) % Plt Count 338 (130-400) K/uL MPV 11.5 (9.4-12.3) fL Absolute Nucleated RBC 0.06 H (0-0) K/uL Nucleated RBC % (auto) 0.6 % Sodium 133 L (136-145) mmol/L Potassium 5.0 (3.5-5.1) mmol/L Chloride 94 L (98-107) mmol/L Carbon Dioxide 27 (21-32) mmol/L Anion Gap 12 H (3-11) BUN 53 H (6-23) mg/dl Creatinine 2.28 H D (0.6-1.2) mg/dl Est Cr Clr Drug Dosing 20.0 ml/min Est GFR ( Amer) 22.3 ml/min Est GFR (Non-Af Amer) 19.2 ml/min BUN/Creatinine Ratio 23.2 H (10-20) Glucose 174 H (70-99(Fasting)) mg/dl POC Glucose (70-99) mg/dl Estimat Average Glucose Pending Hemoglobin A1c Pending Calcium 9.0 (8.5-10.1) mg/dl Triglycerides 98 (0-150) mg/dl Cholesterol 84 (0-200) mg/dl LDL Cholesterol, Calc 29 mg/dl VLDL Cholesterol, Calc 20 (0-30) mg/dl HDL Cholesterol 35 mg/dl Cholesterol/HDL Ratio 2.4 (0-5) 07/07/22 07/06/22 07/06/22 Range/Units 07:40 21:48 18:25 WBC (4.8-10.8) K/ul RBC (3.93-5.22) M/uL Hgb (12.0-16.0) g/dl Hct (34.1-44.9) % MCV (80.0-100.0) fL MCH (25.0-34.0) pg MCHC (32.0-36.0) g/dL RDW Std Deviation (36.4-46.3) fL RDW Coeff of Balbina (11.5-14.5) % Plt Count (130-400) K/uL MPV (9.4-12.3) fL Absolute Nucleated RBC (0-0) K/uL Nucleated RBC % (auto) % Sodium (136-145) mmol/L Potassium (3.5-5.1) mmol/L Chloride (98-107) mmol/L Carbon Dioxide (21-32) mmol/L Anion Gap (3-11) BUN (6-23) mg/dl Creatinine (0.6-1.2) mg/dl Est Cr Clr Drug Dosing ml/min Est GFR ( Amer) ml/min Est GFR (Non-Af Amer) ml/min BUN/Creatinine Ratio (10-20) Glucose (70-99(Fasting)) mg/dl POC Glucose 167 H 199 H 185 H (70-99) mg/dl Estimat Average Glucose Hemoglobin A1c Calcium (8.5-10.1) mg/dl Triglycerides (0-150) mg/dl Cholesterol (0-200) mg/dl LDL Cholesterol, Calc mg/dl VLDL Cholesterol, Calc (0-30) mg/dl HDL Cholesterol mg/dl Cholesterol/HDL Ratio (0-5) 07/06/22 Range/Units 12:07 WBC (4.8-10.8) K/ul RBC (3.93-5.22) M/uL Hgb (12.0-16.0) g/dl Hct (34.1-44.9) % MCV (80.0-100.0) fL MCH (25.0-34.0) pg MCHC (32.0-36.0) g/dL RDW Std Deviation (36.4-46.3) fL RDW Coeff of Balbina (11.5-14.5) % Plt Count (130-400) K/uL MPV (9.4-12.3) fL Absolute Nucleated RBC (0-0) K/uL Nucleated RBC % (auto) % Sodium (136-145) mmol/L Potassium (3.5-5.1) mmol/L Chloride (98-107) mmol/L Carbon Dioxide (21-32) mmol/L Anion Gap (3-11) BUN (6-23) mg/dl Creatinine (0.6-1.2) mg/dl Est Cr Clr Drug Dosing ml/min Est GFR ( Amer) ml/min Est GFR (Non-Af Amer) ml/min BUN/Creatinine Ratio (10-20) Glucose (70-99(Fasting)) mg/dl POC Glucose 168 H (70-99) mg/dl Estimat Average Glucose Hemoglobin A1c Calcium (8.5-10.1) mg/dl Triglycerides (0-150) mg/dl Cholesterol (0-200) mg/dl LDL Cholesterol, Calc mg/dl VLDL Cholesterol, Calc (0-30) mg/dl HDL Cholesterol mg/dl Cholesterol/HDL Ratio (0-5) Diagnostic Findings ECHO 07/06/22 Left ventricular systolic function moderate to severely reduced septal dyskinesis moderate LA dilation moderate to severe RA dilation mild mitral valve regurg moderate tricuspid regurg dilated IVC EF 25-30% Resident Activity Tracking Resident Involvement: Resident Care Provided Care Provided: Adult [facility] Medicine
[2022-07-07 08:30] LABS: Hematocrit (blood only) 34.5 % (34.1-44.9); Hemoglobin 10.1 g/dl (12.0-16.0); Mean Corpuscular Hemoglobin 23.3 pg (25.0-34.0); Mean Corpuscular Hgb Conc 29.3 g/dL (32.0-36.0); Mean Corpuscular Volume 79.5 fL (80.0-100.0); Mean Platelet Volume 11.5 fL (9.4-12.3); Nucleated RBC # (auto) 0.06 K/uL (0-0); Nucleated RBC % (auto) 0.6 %; Platelet Count 338 K/uL (130-400); RDW Coefficient of Variation 17.2 % (11.5-14.5); RDW Standard Deviation 49.5 fL (36.4-46.3); Red Blood Count 4.34 M/uL (3.93-5.22); White Blood Count 10.02 K/ul (4.8-10.8)
[2022-07-07 08:53] LABS: BUN Creatinine Ratio 23.2 (10-20); Chol HDL Ratio 2.4 (0-5); Est GFR (African American) 22.3 ml/min; Est GFR (Non-African American) 19.2 ml/min
[2022-07-07] MEDS: CETIRIZINE HCL 10 MG TABLET PO SCH (09:33)
[2022-07-07] MEDS: guaiFENesin 600 MG TABCR PO SCH ×2 (09:33→20:31)
[2022-07-07] MEDS: predniSONE 20 MG TAB PO SCH (09:33)
[2022-07-07] MEDS: ATORVASTATIN 40 MG TAB PO SCH (09:33)
[2022-07-07] MEDS: METOPROLOL SUCC 50MG EXT REL TAB PO SCH ×2 (09:33→20:33)
[2022-07-07] MEDS: PANTOprazole 40 MG TAB PO SCH (09:33)
[2022-07-07] MEDS: CYANOCOBALAMIN (B-12) 500 MCG TABLET PO SCH (09:33)
[2022-07-07] MEDS: APIXABAN 2.5 MG TAB PO SCH ×2 (09:33→20:30)
[2022-07-07] MEDS: dilTIAZem HCL 240 MG CAPCR PO SCH (09:33)
[2022-07-07] MEDS: MONTELUKAST SODIUM 10 MG TABLET PO SCH (09:33)
[2022-07-07] MEDS: FLUoxetine HCL 20 MG CAP PO SCH (09:33)
[2022-07-07] MEDS: FLUTICASONE/VILANTEROL 200/25MCG 14 PUFFS/INHALER INH SCH (09:33)
[2022-07-07] MEDS: INSULIN ASPART PER UNIT SC SCH ×4 (09:34→20:32)
[2022-07-07] MEDS: FUROSEMIDE 40 MG/4 ML VIAL IV SCH ×2 (09:34→17:53)
[2022-07-07 10:45] LABS: Estimated Average Glucose 151 mg/dl; Hemoglobin A1C 6.9 % (4.5-5.6)
[2022-07-07] MEDS: ALBUT/IPRATROP 3MG/0.5MG NEB 3 ML VIAL NEB SCH ×3 (14:57→22:46)
--- NOTE | 2022-07-07 16:17 | Cardiology Consultation ---
Date of Consultation July 07, 2022 Assessment & Plan (1) Acute dyspnea: (2) CHF (congestive heart failure): (3) Pacemaker: (4) Atrial fibrillation: Plan 1. Shortness of breath: Multifactorial. Certainly an element of pulmonary disease. She likely has an element of pulmonary vascular congestion at the time of admission given the markedly elevated BNP. However, there did not appear to be evidence of pulmonary vascular congestion on chest x-ray. Lung examination today is not consistent with pulmonary edema. While it is very difficult to assess the results of diuresis, her BUN and creatinine are rising suggesting an element of intravascular depletion. She continues to have edema however and likely has some element of right-sided heart failure in addition to just anasarca. Information regarding her volume status could be obtained with right heart catheterization. It is possible this can be performed tomorrow. I think we will be unlikely to achieve significant additional diuresis given her declining renal function. 2. Cardiomyopathy: She has diffuse LV dysfunction. I think this is unlikely to be ischemic although an evaluation of her coronaries is generally warranted in the circumstances. Coronary angiography runs the risk of worsening her renal function. Therefore, I think a perfusion study would be preferable. This could be deferred to the outpatient setting if she is otherwise stable for discharge. Treatment would center around medical therapy. She is on metoprolol succinate currently. She will continue diuretics. She is on Jardiance. May be able to add spironolactone monitoring her electrolytes and renal function closely. Based on her degree of renal dysfunction currently do not think she is a good candidate for the addition of Sukhdev, ARB or Entresto 3. Atrial fibrillation: Persistent. Will perform a device interrogation sandy orrow to see how often and how much atrial fibrillation she has had. Her pacemaker may also require some adjustment given the appearance of atrial pacing on most recent EKG. This could represent some undersensing of atrial fibrillation. Continue apixaban. Diltiazem should likely be discontinued given her cardiomyopathy. In increased dose of metoprolol can be used for worsening rate control. She has some toxicity associated with digoxin in the past. History of Present Illness Reason for Consultation: Dyspnea Requesting Physician: Henry Attending Physician: Jeferson Tiwari DO History of Present Illness Patient is an 81-year-old woman with a history of atrial fibrillation, left bundle branch block and symptomatic bradycardia. He is also known to have an element of pulmonary disease. She was admitted due to worsening dyspnea. She was treated for COPD exacerbation and more recently congestive heart failure. She was noted on an echocardiogram to have severely reduced LV systolic function which is a marked decrease from prior evaluations earlier in the year. Difficulty she has noted a weight gain and lower extremity edema. In the outpatient setting increased doses of diuretics seem to be ineffective at controlling her symptoms or edema. She was subsequently referred for hospital admission. The patient is very hard of hearing. Communication was performed with written questions and answers. She states that her breathing is slightly improved today. She is worried about persistent swelling in the lower extremities and the development of new swelling in the left arm. She denies significant pain currently Allergies Allergy/AdvReac Type Severity Reaction Status Date / Time Penicillins AdvReac Intermediate GI SYMPTOMS Verified 07/05/22 21:01 Home Medications Medication Instructions Recorded Confirmed Type cetirizine 10 mg tablet 10 mg PO DAILY 05/12/21 07/05/22 History cyanocobalamin (vitamin B-12) 500 1,000 mcg PO QAM #30 tabs 02/13/22 07/05/22 Rx mcg tablet apixaban 5 mg tablet (Eliquis) 5 mg PO BID #180 tabs 03/19/22 07/05/22 Rx atorvastatin 40 mg tablet 40 mg PO DAILY #90 tabs 03/19/22 07/05/22 Rx diltiazem HCl 240 mg 240 mg PO QAM #90 caps 03/19/22 07/05/22 Rx capsule,extended release 24 hr fluoxetine 20 mg capsule 20 mg PO DAILY #90 caps 03/19/22 07/05/22 Rx fluticasone furoate 200 1 inh inhalation DAILY #90 ea 03/19/22 07/05/22 Rx mcg-vilanterol 25 mcg/dose inhalation powder furosemide 40 mg tablet (Lasix) 40 mg PO DAILY #90 tabs 03/19/22 07/05/22 Rx metformin 500 mg tablet 500 mg PO BID #180 tabs 03/19/22 07/05/22 Rx omeprazole 20 mg capsule,delayed 20 mg PO DAILY #90 caps 03/19/22 07/05/22 Rx release metoprolol succinate 100 mg 100 mg PO Q12H #180 tabs 03/30/22 07/05/22 Rx tablet,extended release 24 hr montelukast 10 mg tablet 10 mg PO DAILY #90 tabs 04/26/22 07/05/22 Rx lorazepam 0.5 mg tablet 0.5 mg PO DAILY PRN anxiety #30 06/13/22 07/05/22 Rx tabs empagliflozin 10 mg tablet 10 mg PO DAILY #90 tabs 06/20/22 07/05/22 Rx ferrous sulfate 325 mg (65 mg 325 mg PO [id number] 07/05/22 07/05/22 History iron) tablet,delayed release ketoconazole 2 % topical cream 1 applic topical BID PRN RASH 07/05/22 07/05/22 History UNDER BREASTS Patient History Medical History (Updated 07/06/22 @ 01:14 by Sudheer De La Rosa DO) Anxiety Atrial fibrillation CKD stage G3b/A3, GFR 30-44 and albumin creatinine ratio >300 mg/g COPD (chronic obstructive pulmonary disease) Diabetes mellitus Hyperlipidemia Hypertension T2DM (type 2 diabetes mellitus) Surgical History No pertinent past surgical history S/P cataract extraction Status post cardiac pacemaker procedure Family History Other Colorectal cancer Hypertension Kidney disease Lung disease Prostate cancer Denies family history of Breast cancer Social History Smoking Status: Never smoker Cigarettes Per Day: smoked for 60 years; Second Hand Exposure: Yes; Hx Alcohol Use: No Hx Substance Use: No Preferred Language: Lao Communication Ability: Effective Sizing Machine Tender Required: No Beliefs That Will Affect Care: Adventism marital status: / Current Living Situation: Alone current occupational status: retired Feels Safe at Home: Yes caffeine: No Dental Care, Regularly: Yes Seatbelt Use: always Sunscreen Use: No Assistive Devices: Cane, Oxygen - Continuous and Wheelchair Review of Systems Review of Systems: Per HPI Physical Exam Physical Exam: She is alert and oriented x3. Mood affect appear normal. She answered all questions appropriately. Hard of hearing HEENT: Sclerae are anicteric. Neuro: Cranial nerves intact Lungs: Reduced breath sounds in all lung dolan. Prolonged expiratory phase with some expiratory wheezing. No rales. Normal respiratory effort. Cardiac: The rhythm was irregular. S1 and S2 were normal. There are no murmurs on examination. The PMI was not markedly displaced on palpation. Abdomen: The abdomen was soft and nontender. Extremities: Left arm is edematous and swollen relative to the right. Moderate lower extremity edema bilaterally. Skin: There are no rashes noted on examination today. Results & Data ([facility]) Vital Signs (Past 12 Hours) Vital Signs Temp Pulse Pulse Resp BP Pulse Ox O2 Del Method 07/07/22 15:42 36.1 C L 74 16 113/59 L 97 Nasal Cannula 07/07/22 15:25 72 07/07/22 14:59 68 18 98 Nasal Cannula 07/07/22 11:27 36.6 C 88 16 130/82 97 Nasal Cannula 07/07/22 08:00 Nasal Cannula 07/07/22 08:02 74 07/07/22 07:52 36.3 C L 78 16 132/73 97 Nasal Cannula 07/07/22 07:38 75 18 97 Nasal Cannula O2 Flow Rate 07/07/22 15:42 2.5 07/07/22 15:25 07/07/22 14:59 3 07/07/22 11:27 3 07/07/22 08:00 3 07/07/22 08:02 07/07/22 07:52 3 07/07/22 07:38 3 Laboratory Results Abnormal Lab Results 07/06/22 07/06/22 07/07/22 18:25 21:48 07:40 WBC RBC Hgb Hct MCV MCH MCHC RDW Std Deviation RDW Coeff of Balbina Plt Count MPV Absolute Nucleated RBC Nucleated RBC % (auto) Sodium Potassium Chloride Carbon Dioxide Anion Gap BUN Creatinine Est Cr Clr Drug Dosing Est GFR ( Amer) Est GFR (Non-Af Amer) BUN/Creatinine Ratio Glucose POC Glucose 185 H 199 H 167 H Estimat Average Glucose Hemoglobin A1c Calcium Triglycerides Cholesterol LDL Cholesterol, Calc VLDL Cholesterol, Calc HDL Cholesterol Cholesterol/HDL Ratio 07/07/22 07/07/22 07/07/22 08:19 08:19 08:19 WBC 10.02 RBC 4.34 Hgb 10.1 L Hct 34.5 MCV 79.5 L MCH 23.3 L MCHC 29.3 L RDW Std Deviation 49.5 H RDW Coeff of Balbina 17.2 H Plt Count 338 MPV 11.5 Absolute Nucleated RBC 0.06 H Nucleated RBC % (auto) 0.6 Sodium 133 L Potassium 5.0 Chloride 94 L Carbon Dioxide 27 Anion Gap 12 H BUN 53 H Creatinine 2.28 H D Est Cr Clr Drug Dosing 20.0 Est GFR ( Amer) 22.3 Est GFR (Non-Af Amer) 19.2 BUN/Creatinine Ratio 23.2 H Glucose 174 H POC Glucose Estimat Average Glucose 151 Hemoglobin A1c 6.9 H Calcium 9.0 Triglycerides 98 Cholesterol 84 LDL Cholesterol, Calc 29 VLDL Cholesterol, Calc 20 HDL Cholesterol 35 Cholesterol/HDL Ratio 2.4 07/07/22 11:39 WBC RBC Hgb Hct MCV MCH MCHC RDW Std Deviation RDW Coeff of Balbina Plt Count MPV Absolute Nucleated RBC Nucleated RBC % (auto) Sodium Potassium Chloride Carbon Dioxide Anion Gap BUN Creatinine Est Cr Clr Drug Dosing Est GFR ( Amer) Est GFR (Non-Af Amer) BUN/Creatinine Ratio Glucose POC Glucose 173 H Estimat Average Glucose Hemoglobin A1c Calcium Triglycerides Cholesterol LDL Cholesterol, Calc VLDL Cholesterol, Calc HDL Cholesterol Cholesterol/HDL Ratio Diagnostic Findings Echocardiogram performed 06/28/2022: Severely reduced LV systolic function with ejection fraction of 25-30%. Moderately dilated left atrium and moderate to severely dilated right atrium. Mild mitral regurgitation. Moderate tricuspid regurgitation with estimated pulmonary pressure 30-40 mm of mercury. Chest x-ray obtained the time admission revealed cardiomegaly but no acute cardiopulmonary process. PG Care Time/CCT Total # of Minutes Spent Total Time Spent with Patient: Total time spent is greater than 50% in coordination of care (as documented) at patient's floor/unit and/or counseling patient: Coding Level of Care Code 63433 Initial Inpt Care Lvl 3 Diagnoses Acute dyspnea R06.00 CHF (congestive heart failure) I50.9 Pacemaker Z95.0 Atrial fibrillation I48.0 Atrial fibrillation type: paroxysmal (1) Atrial fibrillation Atrial fibrillation type: paroxysmal Qualified Code(s): I48.0 - Paroxysmal atrial fibrillation
[2022-07-07] MEDS: AZITHROMYCIN 250 MG TAB PO SCH (20:31)
[2022-07-07] MEDS: LORazepam 0.5 MG TAB PO PRN (20:57)
[2022-07-08] MEDS: ALBUT/IPRATROP 3MG/0.5MG NEB 3 ML VIAL NEB SCH ×4 (03:31→19:27)
--- NOTE | 2022-07-08 07:18 | Hospitalist Progress Note ---
Date of Service July 08, 2022 Assessment & Plan (1) Acute on chronic respiratory failure with hypoxia: Plan: Coco Sanchez is a 81yo female with PMHx significant for paroxysmal a-fib and sick sinus syndrome (s/p PPM in 2021, on Eliquis, BB and CCB), LE edema with chronic HFpEF (TTE in 02/28 with EF 50-55%, LA dilation and elevated RVSP 40-50), COPD (on chronic 3-4L/min O2), T2DM, CKD3b (baseline Cr 1.3), MIKE, HTN, HLD, chronic incontinence, anxiety and GERD admitted for COPD and acute on chronic HFpEF exacerbations found to have progressed to HFrEF (EF 25-30%) now awaiting cardiac catheterization. #Acute on Chronic Respiratory Failure - multifactorial #Acute COPD exacerbation: worsening productive cough, hypoxia/SOB, wheezes on exam, 20 pack year smoking history and known COPD, with symptoms improved somewhat with nebs at home. COVID-19 negative and CXR without evidence for PNA. BioFire negative. Scheduled nebs have greatly improved wheezing and work of breathing. Patient satting well on 3L NC (baseline home dose). [] Duonebs CARMEN Q6H, Duonebs Q2H PRN [] SoluMedrol 60mg IV x1, then 40mg IV Q8H x2 days, clinically improving - transition to prednisone 40 mg for 5 total days of steroids [] 5-day Z-pack, last dose 07/09 [] pulmonary toilet: Mucinex BID, flutter valve, incentive spirometry [] on home 3L NC [] continue home inhalers #HFrEF Worsening LE edema, LUE edema, orthopnea, hypoxia/SOB x several weeks, despite trial of increased Lasix to 40mg PO BID for several weeks. Follows with [facility] Cardiology. Repeat TTE shows significant worsening of EF. Patient now carries diagnosis of HFrEF (EF 25-30%). [] dry weight is ~86-87kg [] Lasix 40 mg IV BID - Cr bumped to 2.51 in the setting of aggressive diuresis (baseline 1.3-1.5); patient still fluid overloaded - decreased to 20 mg IV BID [] strict I/Os, daily weights/BMP, heart-healthy diet/2g Na restriction [] cards consulted - cardiac cath today #Hypovolemic hyponatremia in the setting of fluid overload Continue to monitor. #CHESTER superimposed on CKD Cr 2.51, up from baseline 1.3 - 1.5. Patient is fluid overloaded in the extravascular space and dry in the intravascular space. Continue to monitor. [] AM BMP [] diuresis as above [] avoid nephrotoxins #Paroxysmal a. fib s/p permanent pacemaker earlier this year. Currently rate-controlled. EKG with a-fib at 67 bpm and frequent AV dual-paced complexes. CXR with cardiomegaly (chronic) but no acute chest disease. [] decrease Eliquis to 2.5mg PO BID for now, given CKD (Cr >1.5) and advanced age [] continue home Metoprolol/Diltiazem #TIIDM A1c 6.6. Hold home meds and utilize SSI while hospitalized #Anemia Chronic iron deficiency anemia. Continue home ferrous sulfate. #HTN Normotensive while here. Continue home BB/CCB as stated above. #HLD Continue home statin. FEN/GI: heart-healthy/DM2/Na-restricted diet DVT Prophylaxis: Eliquis Code Status: full code Disposition: med/tele, PT/OT ordered (2) Acute kidney injury superimposed on CKD: (3) Left arm swelling: (4) Leg edema: (5) Paroxysmal atrial fibrillation: (6) T2DM (type 2 diabetes mellitus): (7) Anemia: (8) Hypertension: (9) Hyperlipidemia: Admission and Anticipated Discharge Date Admission Date: July 05, 2022 Supervising Physician Co-Signing Physician Notes Attending attestation Pt seen and examined in concert with Dr. Hill. In agreement with the documented findings as noted in the resident documentation with any exceptions or additions as noted here. Continued improvement in respiratory effort and reducing LUE and LE edema. VS, nursing notes reviewed. On examination, S1/S2 nl RRR no MCG. Scattered expiratory wheezes and rhonchi. Abd NT/ND BS+ve. 2+ pitting emea of the b/l LE to the knee Acute on chronic hypoxic respiratory failure in the setting of COPD w/ exacerbation - baseline O2 3-4L. Continue duonebs, transition to PO prednisone. Complete course of azithromycin. HFrEF w/ acute excaerbation - Cards consult - Dry wt 87kg. Echo as noted. Cardiac catheterization today. CHESTER on CKDIII - continue furosemide and monitor BMP daily Else see resident documentation as noted. Subjective Patient is extremely hard of hearing. Minimal history obtained. Patient notes that her breathing and wheezing have both improved. Review of Systems Review of Systems: See HPI Physical Exam Physical Exam: General: A&Ox3. NAD. Cooperative. Obese. HEENT: Atraumatic, normocephalic. Pulm: Coarse breath sounds. Wheezing has improved. No increase work of breathing. No respiratory distress. Cardiac: RRR, -mrg. Radial pulses intact and symmetrical. Bilateral 2+ pitting edema in LEs to knees. Abdominal: soft, non-distended Left arm: trace to 1+ edema throughout left dorsal hand and trace edema of forearm. No erythema/warmth/tenderness. Full active and passive ROM. Skin: warm, dry, no rash Results & Data Results & Data ([facility]) Vital Signs (Past 12 Hours) Vital Signs Temp Pulse Pulse Resp BP Pulse Ox O2 Del Method 07/08/22 03:41 36.6 C 77 18 121/66 93 Nasal Cannula 07/08/22 03:33 75 18 98 Nasal Cannula 07/07/22 23:13 36.2 C L 81 18 117/67 91 Nasal Cannula 07/07/22 22:17 78 07/07/22 22:47 94 H 22 97 Nasal Cannula 07/07/22 19:48 36.5 C 70 20 96/48 L 95 Room Air 07/07/22 19:41 Nasal Cannula O2 Flow Rate 07/08/22 03:41 3 07/08/22 03:33 3 07/07/22 23:13 3 07/07/22 22:17 07/07/22 22:47 3 07/07/22 19:48 07/07/22 19:41 3 Laboratory Results 07/08/22 07/08/22 07/08/22 Range/Units 07:40 07:40 07:21 WBC 13.96 H (4.8-10.8) K/ul RBC 4.13 (3.93-5.22) M/uL Hgb 9.8 L (12.0-16.0) g/dl Hct 32.9 L (34.1-44.9) % MCV 79.7 L (80.0-100.0) fL MCH 23.7 L (25.0-34.0) pg MCHC 29.8 L (32.0-36.0) g/dL RDW Std Deviation 49.1 H (36.4-46.3) fL RDW Coeff of Balbina 17.2 H (11.5-14.5) % Plt Count 334 (130-400) K/uL MPV 11.9 (9.4-12.3) fL Absolute Nucleated RBC 0.12 H (0-0) K/uL Nucleated RBC % (auto) 0.9 % Sodium 132 L (136-145) mmol/L Potassium 5.0 (3.5-5.1) mmol/L Chloride 93 L (98-107) mmol/L Carbon Dioxide 25 (21-32) mmol/L Anion Gap 14 H (3-11) BUN 68 H (6-23) mg/dl Creatinine 2.51 H (0.6-1.2) mg/dl Est Cr Clr Drug Dosing 18.1 ml/min Est GFR ( Amer) 19.8 ml/min Est GFR (Non-Af Amer) 17.1 ml/min BUN/Creatinine Ratio 27.1 H (10-20) Glucose 160 H (70-99(Fasting)) mg/dl POC Glucose 165 H (70-99) mg/dl Estimat Average Glucose mg/dl Hemoglobin A1c (4.5-5.6) % Calcium 8.7 (8.5-10.1) mg/dl 07/07/22 07/07/22 07/07/22 Range/Units 20:11 16:21 11:39 WBC (4.8-10.8) K/ul RBC (3.93-5.22) M/uL Hgb (12.0-16.0) g/dl Hct (34.1-44.9) % MCV (80.0-100.0) fL MCH (25.0-34.0) pg MCHC (32.0-36.0) g/dL RDW Std Deviation (36.4-46.3) fL RDW Coeff of Balbina (11.5-14.5) % Plt Count (130-400) K/uL MPV (9.4-12.3) fL Absolute Nucleated RBC (0-0) K/uL Nucleated RBC % (auto) % Sodium (136-145) mmol/L Potassium (3.5-5.1) mmol/L Chloride (98-107) mmol/L Carbon Dioxide (21-32) mmol/L Anion Gap (3-11) BUN (6-23) mg/dl Creatinine (0.6-1.2) mg/dl Est Cr Clr Drug Dosing ml/min Est GFR ( Amer) ml/min Est GFR (Non-Af Amer) ml/min BUN/Creatinine Ratio (10-20) Glucose (70-99(Fasting)) mg/dl POC Glucose 194 H 174 H 173 H (70-99) mg/dl Estimat Average Glucose mg/dl Hemoglobin A1c (4.5-5.6) % Calcium (8.5-10.1) mg/dl 07/07/22 Range/Units 08:19 WBC (4.8-10.8) K/ul RBC (3.93-5.22) M/uL Hgb (12.0-16.0) g/dl Hct (34.1-44.9) % MCV (80.0-100.0) fL MCH (25.0-34.0) pg MCHC (32.0-36.0) g/dL RDW Std Deviation (36.4-46.3) fL RDW Coeff of Balbina (11.5-14.5) % Plt Count (130-400) K/uL MPV (9.4-12.3) fL Absolute Nucleated RBC (0-0) K/uL Nucleated RBC % (auto) % Sodium (136-145) mmol/L Potassium (3.5-5.1) mmol/L Chloride (98-107) mmol/L Carbon Dioxide (21-32) mmol/L Anion Gap (3-11) BUN (6-23) mg/dl Creatinine (0.6-1.2) mg/dl Est Cr Clr Drug Dosing ml/min Est GFR ( Amer) ml/min Est GFR (Non-Af Amer) ml/min BUN/Creatinine Ratio (10-20) Glucose (70-99(Fasting)) mg/dl POC Glucose (70-99) mg/dl Estimat Average Glucose 151 mg/dl Hemoglobin A1c 6.9 H (4.5-5.6) % Calcium (8.5-10.1) mg/dl Resident Activity Tracking Resident Involvement: Resident Care Provided Care Provided: Adult [facility]
[2022-07-08 08:26] LABS: Hematocrit (blood only) 32.9 % (34.1-44.9); Hemoglobin 9.8 g/dl (12.0-16.0); Mean Corpuscular Hemoglobin 23.7 pg (25.0-34.0); Mean Corpuscular Hgb Conc 29.8 g/dL (32.0-36.0); Mean Corpuscular Volume 79.7 fL (80.0-100.0); Mean Platelet Volume 11.9 fL (9.4-12.3); Nucleated RBC # (auto) 0.12 K/uL (0-0); Nucleated RBC % (auto) 0.9 %; Platelet Count 334 K/uL (130-400); RDW Coefficient of Variation 17.2 % (11.5-14.5); RDW Standard Deviation 49.1 fL (36.4-46.3); Red Blood Count 4.13 M/uL (3.93-5.22); White Blood Count 13.96 K/ul (4.8-10.8)
[2022-07-08] MEDS: INSULIN ASPART PER UNIT SC SCH ×4 (08:29→20:31)
[2022-07-08] MEDS: FLUTICASONE/VILANTEROL 200/25MCG 14 PUFFS/INHALER INH SCH (08:29)
[2022-07-08] MEDS: FLUoxetine HCL 20 MG CAP PO SCH (08:30)
[2022-07-08] MEDS: APIXABAN 2.5 MG TAB PO SCH ×2 (08:30→20:29)
[2022-07-08] MEDS: predniSONE 20 MG TAB PO SCH (08:30)
[2022-07-08] MEDS: CYANOCOBALAMIN (B-12) 500 MCG TABLET PO SCH (08:30)
[2022-07-08] MEDS: FERROUS SULFATE 325 MG TAB PO SCH (08:30)
[2022-07-08] MEDS: METOPROLOL SUCC 50MG EXT REL TAB PO SCH ×2 (08:30→20:00)
[2022-07-08] MEDS: MONTELUKAST SODIUM 10 MG TABLET PO SCH (08:30)
[2022-07-08] MEDS: CETIRIZINE HCL 10 MG TABLET PO SCH (08:30)
[2022-07-08] MEDS: guaiFENesin 600 MG TABCR PO SCH ×2 (08:30→20:29)
[2022-07-08] MEDS: PANTOprazole 40 MG TAB PO SCH (08:30)
[2022-07-08] MEDS: ATORVASTATIN 40 MG TAB PO SCH (08:30)
[2022-07-08] MEDS: FUROSEMIDE 40 MG/4 ML VIAL IV SCH (08:32)
[2022-07-08 09:10] LABS: BUN Creatinine Ratio 27.1 (10-20); Calcium 8.7 mg/dl (8.5-10.1); Creatinine Clr Calc Pharmacy 18.1 ml/min; Est GFR (African American) 19.8 ml/min; Est GFR (Non-African American) 17.1 ml/min
--- NOTE | 2022-07-08 12:07 | Cardiac Catheterization ---
[facility] Data: Primary Care Provider Cardiac Status Clinical evaluation leading to the procedure CAD Presenation: Sx unlikely to be ischemic Diagnostic Physicians Name: Reza Mcclendon MD Closure Device Recommendations: Medical Therapy and/or Counseling Cardiac Cath Procedure Full Procedure Date July 08, 2022 Pre-Procedure Diagnosis Pre-Procedure Diagnosis: CHF AUC Score AUC Score: 7 Post-Procedure Diagnosis Post-Procedure Diagnosis: Elevated Intracardiac Pressures Procedure(s) Performed Procedure(s) Performed: Right Heart Cath and Ultrasound Guided Vascular Access Technical Instructor Course Developer Reza Mcclendon MD Sanitary Plumber(s) none Estimated Blood Loss Estimated Blood Loss: None Summary of Findings Procedure performed: Right heart catheterization Staff coil strapper: Reza Mcclendon MD Indication: The patient is an 81-year-old woman who presented with symptoms of dyspnea. She is known to have significant lung disease and reduced LV systolic function. Right heart catheterization was felt to be valuable for determining ongoing care. Procedure details The patient was informed the risks benefits and alternatives to the intended procedure. She understood which proceed. She was taken to cardiac catheterization suite. The right internal jugular area was prepped and draped in usual sterile fashion. This area was anesthetized using subcutaneous menstruation of lidocaine solution. Right internal jugular vein was subsequently accessed using modified Seldinger technique under ultrasound guidance and venous sheath was placed at this site over guidewire. The sheath was used facilitate passage of a balloon tipped PA catheter through the cardiac chambers into the pulmonary artery in wedge position. Hemodynamic measurements were made and thermodilution measurements were also performed prior to removal of the catheter and sheath. Hemostasis was achieved at the access site using manual pressure. The patient tolerated procedure well. There were no immediate complications. Impression: Mildly elevated pulmonary pressures Severely elevated cardiac filling pressures consistent with decompensated congestive heart failure Hemodynamics Rest Ao:: n/a Final Ao: n/a LV: n/a RA: 34 mm of mercury RV: 49/23 mm of mercury PA: 50/35 mm of mercury PW: 35 mm of mercury Recommendations Recommendations: Medical Therapy and/or Counseling Specimens Specimens: None Radiation Exposure (mGy) q Contrast (mls) 0 Procedural Complication(s) None Disposition PCU I attest to the content of the Intraoperative Record and any orders documented therein. Any exceptions are noted below. [facility] Card Cath Procedure Codes Cardiac Catheterization Procedure 1: Cardiovascular Cath Procedures: 45961 Right Heart Cath Therapeutic Services & Ancillary Procedure 1: Cardiovascular Tx and Anc Procedures: 00419 Ultrasonic Guidance Vascular Access PG Care Time/CCT Total # of Minutes Spent Total Time Spent with Patient: Total time spent is greater than 50% in coordination of care (as documented) at patient's floor/unit and/or counseling patient:
[2022-07-08] MEDS ORDERED: FUROSEMIDE 40 MG/4 ML VIAL IV SCH (17:00)
--- NOTE | 2022-07-08 17:59 | Cardiology Progress Note ---
Date of Service July 08, 2022 Assessment & Plan (1) Acute dyspnea: (2) CHF (congestive heart failure): (3) Pacemaker: (4) Atrial fibrillation: Plan 1. Shortness of breath: While she may have an element of primary lung disease, good portion of her breathing difficulties likely related to pulmonary edema. This conclusion was based on her elevated pulmonary capillary wedge pressure during right heart catheterization today. She will require continued aggressive diuresis. She has an element of renal insufficiency which may hamper our efforts. Nonetheless, this is imperative to improve her symptoms. If she cannot affected a good diuresis on escalating doses of loop diuretic, a thiazide diuretic should be added. This is ineffectual an inotrope confusion could be entertained. Last alternative would be dialysis. 2. Cardiomyopathy: She has diffuse LV dysfunction. She is not a good candidate currently for coronary angiography to exclude ischemia as an etiology. This is based primarily on her renal dysfunction. However, perfusion imaging could be entertained. Lexiscan has less potential for bronchospasm but given her pulmonary disease this could be a significant side effect. No current symptoms to suggest ischemic heart disease Treatment would center around medical therapy. She is on metoprolol succinate currently. She will continue diuretics. She is on Jardiance. May be able to add spironolactone monitoring her electrolytes and renal function closely. Based on her degree of renal dysfunction currently do not think she is a good candidate for the addition of Sukhdev, ARB or Entresto 3. Atrial fibrillation: Persistent. Device interrogation revealed a couple of months of atrial fibrillation. Rate control appears to be adequate. No overt symptoms. Continue apixaban. 4. Dual-chamber permanent pacemaker: She appears to have some dysfunction of the atrial lead. Will the position appears stable the sensing is quite poor. This is not uncommon with atrial fibrillation, but this seems to have been a significant change in the function over the past few weeks. The remaining function of the device is normal. As he is in persistent atrial fibrillation I changed her to a VVIR mode Admission and Anticipated Discharge Date Admission Date: July 05, 2022 Subjective Communication was facilitated by writing down questions. Patient is very hard of hearing and has some difficulty responding to verbal questions. She continues to have significant breathing difficulty this is her main complaint. No chest pain. No ambulation yet. Review of Systems Review of Systems: Per HPI Physical Exam Physical Exam: She is alert and oriented x3. Mood affect appear normal. She answered all questions appropriately. Hard of hearing HEENT: Sclerae are anicteric. Neuro: Cranial nerves intact Lungs: Reduced breath sounds in all lung dolan. Prolonged expiratory phase with some expiratory wheezing. No rales. Normal respiratory effort. Cardiac: The rhythm was irregular. S1 and S2 were normal. There are no murmurs on examination. The PMI was not markedly displaced on palpation. Extremities: Left arm is edematous and swollen relative to the right. Moderate lower extremity edema bilaterally. Skin: There are no rashes noted on examination today. Results & Data ([facility]) Vital Signs (Past 12 Hours) Vital Signs Temp Pulse Pulse Resp BP BP Pulse Ox 07/08/22 17:08 36.2 C L 78 15 121/77 97 07/08/22 12:55 85 07/08/22 12:55 07/08/22 13:22 36.7 C 76 16 133/82 97 07/08/22 12:52 36.5 C 79 16 106/72 97 07/08/22 12:30 67 20 125/54 L 96 07/08/22 08:00 73 07/08/22 08:00 07/08/22 11:07 83 20 136/67 93 07/08/22 08:13 36.6 C 86 20 133/58 L 98 07/08/22 07:29 73 16 98 O2 Del Method O2 Flow Rate 07/08/22 17:08 Room Air 07/08/22 12:55 07/08/22 12:55 Oxymask 3 07/08/22 13:22 Nasal Cannula 3 07/08/22 12:52 Nasal Cannula 3 07/08/22 12:30 Nasal Cannula 07/08/22 08:00 07/08/22 08:00 Nasal Cannula 3 07/08/22 11:07 Nasal Cannula 3 07/08/22 08:13 Nasal Cannula 3 07/08/22 07:29 Nasal Cannula 3 Laboratory Results Abnormal Lab Results 07/07/22 07/08/22 07/08/22 20:11 07:21 07:40 WBC 13.96 H RBC 4.13 Hgb 9.8 L Hct 32.9 L MCV 79.7 L MCH 23.7 L MCHC 29.8 L RDW Std Deviation 49.1 H RDW Coeff of Balbina 17.2 H Plt Count 334 MPV 11.9 Absolute Nucleated RBC 0.12 H Nucleated RBC % (auto) 0.9 Sodium Potassium Chloride Carbon Dioxide Anion Gap BUN Creatinine Est Cr Clr Drug Dosing Est GFR ( Amer) Est GFR (Non-Af Amer) BUN/Creatinine Ratio Glucose POC Glucose 194 H 165 H Calcium 07/08/22 07/08/22 07/08/22 07:40 13:10 16:59 WBC RBC Hgb Hct MCV MCH MCHC RDW Std Deviation RDW Coeff of Balbina Plt Count MPV Absolute Nucleated RBC Nucleated RBC % (auto) Sodium 132 L Potassium 5.0 Chloride 93 L Carbon Dioxide 25 Anion Gap 14 H BUN 68 H Creatinine 2.51 H Est Cr Clr Drug Dosing 18.1 Est GFR ( Amer) 19.8 Est GFR (Non-Af Amer) 17.1 BUN/Creatinine Ratio 27.1 H Glucose 160 H POC Glucose 165 H 159 H Calcium 8.7 Diagnostic Findings Right heart catheterization performed today revealed mildly elevated pulmonary pressures with significantly elevated pulmonary capillary wedge pressure. Thermodilution cardiac outputs also revealed severely reduced LV function. Echocardiogram performed 06/28/2022: Severely reduced LV systolic function with ejection fraction of 25-30%. Moderately dilated left atrium and moderate to severely dilated right atrium. Mild mitral regurgitation. Moderate tricuspid regurgitation with estimated pulmonary pressure 30-40 mm of mercury. I performed a complete device interrogation of her dual-chamber permanent pacemaker. Normal longevity. 100% atrial fibrillation. Poor sensing on the atrial lead. Normal function of the right ventricular lead PG Care Time/CCT Total # of Minutes Spent Total Time Spent with Patient: Total time spent is greater than 50% in coordination of care (as documented) at patient's floor/unit and/or counseling patient: Coding Level of Care Code 72293 Subseq Hosp Care Lvl 2 Diagnoses Acute dyspnea R06.00 CHF (congestive heart failure) I50.9 Pacemaker Z95.0 Atrial fibrillation I48.0 Atrial fibrillation type: paroxysmal CPT Codes Dual Lead Pacemaker System - 83489 ([id number]) (1) Atrial fibrillation Atrial fibrillation type: paroxysmal Qualified Code(s): I48.0 - Paroxysmal atrial fibrillation
[2022-07-08] MEDS: AZITHROMYCIN 250 MG TAB PO SCH (20:29)
[2022-07-09] MEDS: ALBUT/IPRATROP 3MG/0.5MG NEB 3 ML VIAL NEB SCH ×5 (01:56→23:21)
[2022-07-09 07:09] LABS: Hematocrit (blood only) 31.9 % (34.1-44.9); Hemoglobin 9.6 g/dl (12.0-16.0); Mean Corpuscular Hemoglobin 23.5 pg (25.0-34.0); Mean Corpuscular Hgb Conc 30.1 g/dL (32.0-36.0); Mean Platelet Volume 11.6 fL (9.4-12.3); Nucleated RBC # (auto) 0.11 K/uL (0-0); Nucleated RBC % (auto) 0.9 %; Platelet Count 287 K/uL (130-400); RDW Coefficient of Variation 17.2 % (11.5-14.5); RDW Standard Deviation 48.7 fL (36.4-46.3); Red Blood Count 4.09 M/uL (3.93-5.22); White Blood Count 12.81 K/ul (4.8-10.8)
--- NOTE | 2022-07-09 07:19 | Hospitalist Progress Note ---
Date of Service July 09, 2022 Assessment & Plan (1) Acute on chronic respiratory failure with hypoxia: Plan: Coco Sanchez is a 81 y/o female with PMHx significant for paroxysmal a-fib and sick sinus syndrome (s/p PPM in 2021, on Eliquis, BB and CCB), LE edema with chronic HFpEF (TTE in 02/28 with EF 50-55%, LA dilation and elevated RVSP 40-50), COPD (on chronic 3-4L/min O2), T2DM, CKD3b (baseline Cr 1.3), MIKE, HTN, HLD, chronic incontinence, anxiety and GERD admitted for COPD exacerbation and progression from HFpEF to HFrEF (EF 25-30%) confirmed on cardiac cath 07/08 with need for continued diuresis. #HFrEF Worsening LE edema, LUE edema, orthopnea, hypoxia/SOB x several weeks, despite trial of increased Lasix to 40mg PO BID for several weeks. Follows with [facility] [place] [facility]. Repeat TTE shows significant worsening of EF. Patient now carries diagnosis of HFrEF (EF 25-30%) confirmed on cardiac cath 07/08; will need continued diuresis despite CHESTER. Continue to monitor. [] dry weight is ~86-87k; patient has not been at dry weight in a long time [] Lasix 40 mg IV BID, monitor CHESTER [] strict I/Os, daily weights/BMP, heart-healthy diet/2g Na restriction [] cards consulted - cardiac cath done f/u report #COPD Exacerbation Treated with steroids x5 days, duonebs, azithromycin x5 days worsening productive cough, hypoxia/SOB, wheezes on exam, 20 pack year smoking history and known COPD. COVID-19 negative and CXR without evidence for PNA. BioFire negative. Scheduled nebs have greatly improved wheezing and work of breathing. Patient satting well on 3L NC (baseline home level). [] Duonebs CARMEN Q8H, Duonebs Q2H PRN [] pulmonary toilet: Mucinex BID, flutter valve, incentive spirometry [] on home 3L NC [] continue home inhalers #Hypovolemic hyponatremia in the setting of fluid overload Continue to monitor. #CHESTER superimposed on CKD Cr 2.61, Upon further search baseline is not apparent ranges from 1.3 - 4. CHESTER appears relatively stable. Continue diuresis. Patient is fluid overloaded in the extravascular space and dry in the intravascular space. Continue to monitor. [] AM BMP [] diuresis as above [] avoid nephrotoxins #Paroxysmal a. fib s/p permanent pacemaker earlier this year. Currently rate-controlled. EKG with a-fib at 67 bpm and frequent AV dual-paced complexes. CXR with cardiomegaly (chronic) but no acute chest disease. [] decrease Eliquis to 2.5mg PO BID for now, given CKD (Cr >1.5) and advanced age [] continue home Metoprolol/Diltiazem #TIIDM A1c 6.6. Hold home meds and utilize SSI while hospitalized #Anemia Chronic iron deficiency anemia. Continue home ferrous sulfate. #HTN Normotensive while here. Continue home BB/CCB as stated above. #HLD Continue home statin. FEN/GI: heart-healthy/DM2/Na-restricted diet DVT Prophylaxis: Eliquis Code Status: full code Disposition: med/tele, PT/OT ordered (2) Acute kidney injury superimposed on CKD: (3) Left arm swelling: (4) Leg edema: (5) Paroxysmal atrial fibrillation: (6) T2DM (type 2 diabetes mellitus): (7) Anemia: (8) Hypertension: (9) Hyperlipidemia: Admission and Anticipated Discharge Date Admission Date: July 05, 2022 Supervising Physician Co-Signing Physician Notes Attending attestation Pt seen and examined in concert with Dr. Hill. In agreement with the documented findings as noted in the resident documentation with any exceptions or additions as noted here. Continued improvement in respiratory effort and reducing LUE and LE edema. VS, nursing notes reviewed. On examination, S1/S2 nl RRR no MCG. Scattered expiratory wheezes and rhonchi. Abd NT/ND BS+ve. 2+ pitting edmea of the b/l LE to the knee stable, LUE edema stable. Acute on chronic hypoxic respiratory failure in the setting of COPD w/ exacerbation - baseline O2 3-4L. Continue duonebs, PO prednisone. Complete course of azithromycin today. HFrEF w/ acute excaerbation - Cards consult - Dry wt ~87kg. Echo as noted. Continue diuresis with close monitoring of Cr as patient approaching respiratory baseline. CHESTER on CKDIII - continue furosemide and monitor BMP daily Else see resident documentation as noted. Subjective Patient notes that she is doing well today. She is extremely hard of hearing - typing on a laptop is used for communication. Discussed condition with granddaughter who was in the room this AM. She notes improvement in her SOB. Review of Systems Review of Systems: See HPI Physical Exam Physical Exam: General: A&Ox3. NAD. Cooperative. Obese. HEENT: Atraumatic, normocephalic. Pulm: Coarse breath sounds. Wheezing has improved. No increase work of breathing. No respiratory distress. Cardiac: RRR, -mrg. Radial pulses intact and symmetrical. Bilateral 2+ pitting edema in LEs to knees. Abdominal: soft, non-distended Left arm: trace to 1+ edema throughout left dorsal hand and trace edema of forearm. No erythema/warmth/tenderness. Full active and passive ROM. Skin: warm, dry, no rash Results & Data Results & Data ([facility]) Vital Signs (Past 12 Hours) Vital Signs Temp Pulse Pulse Resp BP Pulse Ox O2 Del Method 07/09/22 07:05 88 18 95 Nasal Cannula 07/09/22 05:00 35.6 C L 07/09/22 04:25 35.4 C L 07/09/22 03:07 90 22 110/71 96 Nasal Cannula 07/09/22 01:57 72 18 98 Nasal Cannula 07/08/22 23:00 80 07/08/22 23:01 36.4 C L 79 20 119/78 98 Nasal Cannula 07/08/22 20:00 Nasal Cannula 07/08/22 19:29 88 18 99 Nasal Cannula O2 Flow Rate 07/09/22 07:05 3 07/09/22 05:00 07/09/22 04:25 07/09/22 03:07 2 07/09/22 01:57 2 07/08/22 23:00 07/08/22 23:01 2 07/08/22 20:00 3 07/08/22 19:29 3 Laboratory Results 07/09/22 07/09/22 07/09/22 Range/Units 07:15 06:24 06:24 WBC 12.81 H (4.8-10.8) K/ul RBC 4.09 (3.93-5.22) M/uL Hgb 9.6 L (12.0-16.0) g/dl Hct 31.9 L (34.1-44.9) % MCV 78.0 L (80.0-100.0) fL MCH 23.5 L (25.0-34.0) pg MCHC 30.1 L (32.0-36.0) g/dL RDW Std Deviation 48.7 H (36.4-46.3) fL RDW Coeff of Balbina 17.2 H (11.5-14.5) % Plt Count 287 (130-400) K/uL MPV 11.6 (9.4-12.3) fL Absolute Nucleated RBC 0.11 H (0-0) K/uL Nucleated RBC % (auto) 0.9 % Sodium 134 L (136-145) mmol/L Potassium 4.8 (3.5-5.1) mmol/L Chloride 94 L (98-107) mmol/L Carbon Dioxide 27 (21-32) mmol/L Anion Gap 13 H (3-11) BUN 75 H (6-23) mg/dl Creatinine 2.61 H (0.6-1.2) mg/dl Est Cr Clr Drug Dosing 17.5 ml/min Est GFR ( Amer) 18.9 ml/min Est GFR (Non-Af Amer) 16.3 ml/min BUN/Creatinine Ratio 28.7 H (10-20) Glucose 128 H (70-99(Fasting)) mg/dl POC Glucose 132 H (70-99) mg/dl Calcium 8.5 (8.5-10.1) mg/dl 07/08/22 07/08/22 07/08/22 Range/Units 19:46 16:59 13:10 WBC (4.8-10.8) K/ul RBC (3.93-5.22) M/uL Hgb (12.0-16.0) g/dl Hct (34.1-44.9) % MCV (80.0-100.0) fL MCH (25.0-34.0) pg MCHC (32.0-36.0) g/dL RDW Std Deviation (36.4-46.3) fL RDW Coeff of Balbina (11.5-14.5) % Plt Count (130-400) K/uL MPV (9.4-12.3) fL Absolute Nucleated RBC (0-0) K/uL Nucleated RBC % (auto) % Sodium (136-145) mmol/L Potassium (3.5-5.1) mmol/L Chloride (98-107) mmol/L Carbon Dioxide (21-32) mmol/L Anion Gap (3-11) BUN (6-23) mg/dl Creatinine (0.6-1.2) mg/dl Est Cr Clr Drug Dosing ml/min Est GFR ( Amer) ml/min Est GFR (Non-Af Amer) ml/min BUN/Creatinine Ratio (10-20) Glucose (70-99(Fasting)) mg/dl POC Glucose 178 H 159 H 165 H (70-99) mg/dl Calcium (8.5-10.1) mg/dl Resident Activity Tracking Resident Involvement: Resident Care Provided Care Provided: Adult Hospital Medicine
[2022-07-09 07:42] LABS: BUN Creatinine Ratio 28.7 (10-20); Calcium 8.5 mg/dl (8.5-10.1); Creatinine Clr Calc Pharmacy 17.5 ml/min; Est GFR (African American) 18.9 ml/min; Est GFR (Non-African American) 16.3 ml/min; Potassium 4.8 mmol/L (3.5-5.1)
[2022-07-09] MEDS: INSULIN ASPART PER UNIT SC SCH ×4 (08:36→20:40)
[2022-07-09] MEDS: FUROSEMIDE 40 MG/4 ML VIAL IV SCH ×2 (08:51→17:59)
[2022-07-09] MEDS: guaiFENesin 600 MG TABCR PO SCH ×2 (08:51→20:41)
[2022-07-09] MEDS: FLUoxetine HCL 20 MG CAP PO SCH (08:52)
[2022-07-09] MEDS: METOPROLOL SUCC 50MG EXT REL TAB PO SCH ×2 (08:52→20:20)
[2022-07-09] MEDS: APIXABAN 2.5 MG TAB PO SCH ×2 (08:52→20:42)
[2022-07-09] MEDS: CYANOCOBALAMIN (B-12) 500 MCG TABLET PO SCH (08:52)
[2022-07-09] MEDS: PANTOprazole 40 MG TAB PO SCH (08:52)
[2022-07-09] MEDS: predniSONE 20 MG TAB PO SCH (08:52)
[2022-07-09] MEDS: CETIRIZINE HCL 10 MG TABLET PO SCH (08:52)
[2022-07-09] MEDS: ATORVASTATIN 40 MG TAB PO SCH (08:52)
[2022-07-09] MEDS: MONTELUKAST SODIUM 10 MG TABLET PO SCH (08:53)
[2022-07-09] MEDS: NYSTATIN SUSP 500,000 U/5 ML UDC PO SCH ×3 (10:05→20:43)
[2022-07-09] MEDS: FLUTICASONE/VILANTEROL 200/25MCG 14 PUFFS/INHALER INH SCH (10:36)
[2022-07-09] MEDS ORDERED: POLYETHYLENE (MIRALAX) 17 GM PACK PO PRN (18:02)
[2022-07-09] MEDS: AZITHROMYCIN 250 MG TAB PO SCH (20:42)
[2022-07-09] MEDS: LORazepam 0.5 MG TAB PO PRN (23:00)
--- NOTE | 2022-07-10 06:58 | Hospitalist Progress Note ---
Date of Service July 10, 2022 Assessment & Plan (1) Acute on chronic respiratory failure with hypoxia: Plan: Coco Sanchez is a 81 y/o female with PMHx significant for paroxysmal a-fib and sick sinus syndrome (s/p PPM in 2021, on Eliquis, BB and CCB), LE edema with c hronic HFpEF (TTE in 02/28 with EF 50-55%, LA dilation and elevated RVSP 40-50), COPD (on chronic 3-4L/min O2), T2DM, CKD3b (baseline Cr 1.3), MIKE, HTN, HLD, chronic incontinence, anxiety and GERD admitted for COPD exacerbation and progression from HFpEF to HFrEF (EF 25-30%) confirmed on cardiac cath 07/08 with need for continued aggressive diuresis. #HFrEF Worsening LE edema, LUE edema, orthopnea, hypoxia/SOB x several weeks, despite trial of increased Lasix to 40mg PO BID for several weeks. Follows with [facility] [place] [facility]. Repeat TTE shows significant worsening of EF. Patient now carries diagnosis of HFrEF (EF 25-30%) confirmed on cardiac cath 07/08. Patient continues to have 2+ pitting edema BLE on 40 mg Lasix BID17. CHESTER stable. One dose of chlorothiazide 30 minutes prior to afternoon Lasix dose for synergistic effect. Will monitor CHESTER with AM BMP. [] dry weight is ~86-87k; patient has not been at dry weight in a long time [] Lasix 40 mg IV BID, monitor CHESTER [] chlorothiazide 500 mg IV x1 30 minutes prior to Lasix, monitor CHESTER [] strict I/Os, daily weights/BMP, heart-healthy diet/2g Na restriction [] cards consulted - cardiac cath done f/u report #COPD Exacerbation Treated with steroids x5 days, duonebs, azithromycin x5 days worsening productive cough, hypoxia/SOB, wheezes on exam, 20 pack year smoking history and known COPD. COVID-19 negative and CXR without evidence for PNA. BioFire negative. Scheduled nebs have greatly improved wheezing and work of breathing. Patient satting well on 3L NC (baseline home level). [] Duonebs CARMEN Q12H, Duonebs Q2H PRN [] pulmonary toilet: Mucinex BID, flutter valve, incentive spirometry [] on home 3L NC [] continue home inhalers #Hypovolemic hyponatremia in the setting of fluid overload Continue to monitor. #CHESTER superimposed on CKD - stablizing Cr 2.63, Upon further search baseline is not apparent ranges from 1.3 - 4. CHESTER appears relatively stable. Continue diuresis. Patient is fluid overloaded in the extravascular space and dry in the intravascular space. Continue to monitor. [] AM BMP [] diuresis as above [] avoid nephrotoxins #Delirium Per #Paroxysmal a. fib s/p permanent pacemaker earlier this year. Currently rate-controlled. EKG with a-fib at 67 bpm and frequent AV dual-paced complexes. CXR with cardiomegaly (chronic) but no acute chest disease. [] decrease Eliquis to 2.5mg PO BID for now, given CKD (Cr >1.5) and advanced age [] continue home Metoprolol/Diltiazem #TIIDM A1c 6.6. Hold home meds and utilize SSI while hospitalized #Anemia Chronic iron deficiency anemia. Continue home ferrous sulfate. #HTN Normotensive while here. Continue home BB/CCB as stated above. #HLD Continue home statin. _ FEN/GI: heart-healthy/DM2/Na-restricted diet DVT Prophylaxis: Eliquis Code Status: full code Disposition: med/tele, PT/OT ordered (2) Acute kidney injury superimposed on CKD: (3) Left arm swelling: (4) Leg edema: (5) Paroxysmal atrial fibrillation: (6) T2DM (type 2 diabetes mellitus): (7) Anemia: (8) Hypertension: (9) Hyperlipidemia: Admission and Anticipated Discharge Date Admission Date: July 05, 2022 Supervising Physician Co-Signing Physician Notes Attending attestation Pt seen and examined in concert with Dr. Hill. In agreement with the documented findings as noted in the resident documentation with any exceptions or additions as noted here. Stable LE edema and left UE edema without complaint of SOB different than baseline. VS, nursing notes reviewed. On examination, S1/S2 nl RRR no MCG. Stable scattered expiratory wheezes and rhonchi. Abd NT/ND BS+ve. 2+ pitting edema of the b/l LE to the knee stable, LUE edema stable. Acute on chronic hypoxic respiratory failure in the setting of COPD w/ exacerbation - baseline O2 3-4L. Continue duonebs PRN. Completed course of azithromycin, pred x 5 days. HFrEF w/ acute excaerbation - Cards consult - Dry wt ~87kg. Echo as noted. Strict I/Os. Continue diuresis with 1 time dose of chlorothiazide and ongoing furosemide, trend Cr as patient approaching respiratory baseline. CHESTER on CKDIII - Monitor BMP daily, stable on current diuresis Else see resident documentation as noted. Subjective Patient notes that she is doing well today. She is extremely hard of hearing - typing on a laptop is used for communication. Review of Systems Review of Systems: See HPI Physical Exam Physical Exam: General: A&Ox3. NAD. Cooperative. Obese. HEENT: Atraumatic, normocephalic. Pulm: Coarse breath sounds. Wheezing has improved. No increase work of breathing. No respiratory distress. Cardiac: RRR, -mrg. Radial pulses intact and symmetrical. Bilateral 2+ pitting edema in LEs to knees. Abdominal: soft, non-distended Left arm: trace to 1+ edema throughout left dorsal hand and trace edema of forearm. No erythema/warmth/tenderness. Full active and passive ROM. Skin: warm, dry, no rash Results & Data Results & Data ([facility]) Vital Signs (Past 12 Hours) Vital Signs Temp Pulse Pulse Resp BP BP Pulse Ox 07/10/22 03:15 36.4 C L 85 17 119/71 97 07/09/22 23:23 91 H 18 97 07/09/22 23:18 95 H 07/09/22 22:30 36.5 C 95 H 20 128/76 98 07/09/22 20:00 07/09/22 19:35 36.4 C L 106 H 20 108/82 98 O2 Del Method O2 Flow Rate 07/10/22 03:15 Nasal Cannula 3 07/09/22 23:23 Nasal Cannula 3 07/09/22 23:18 07/09/22 22:30 Nasal Cannula 3.0 07/09/22 20:00 Nasal Cannula 3 07/09/22 19:35 Nasal Cannula 3.0 Laboratory Results 07/10/22 07/10/22 07/10/22 Range/Units 11:34 07:13 06:31 WBC (4.8-10.8) K/ul RBC (3.93-5.22) M/uL Hgb (12.0-16.0) g/dl Hct (34.1-44.9) % MCV (80.0-100.0) fL MCH (25.0-34.0) pg MCHC (32.0-36.0) g/dL RDW Std Deviation (36.4-46.3) fL RDW Coeff of Balbina (11.5-14.5) % Plt Count (130-400) K/uL MPV (9.4-12.3) fL Absolute Nucleated RBC (0-0) K/uL Nucleated RBC % (auto) % Sodium 132 L (136-145) mmol/L Potassium 4.6 (3.5-5.1) mmol/L Chloride 93 L (98-107) mmol/L Carbon Dioxide 26 (21-32) mmol/L Anion Gap 13 H (3-11) BUN 80 H (6-23) mg/dl Creatinine 2.63 H (0.6-1.2) mg/dl Est Cr Clr Drug Dosing 17.1 ml/min Est GFR ( Amer) 18.7 ml/min Est GFR (Non-Af Amer) 16.2 ml/min BUN/Creatinine Ratio 30.4 H (10-20) Glucose 139 H (70-99(Fasting)) mg/dl POC Glucose 154 H 128 H (70-99) mg/dl Calcium 8.4 L (8.5-10.1) mg/dl 07/10/22 07/09/22 07/09/22 Range/Units 06:31 20:24 16:09 WBC 15.40 H (4.8-10.8) K/ul RBC 4.29 (3.93-5.22) M/uL Hgb 10.1 L (12.0-16.0) g/dl Hct 33.1 L (34.1-44.9) % MCV 77.2 L (80.0-100.0) fL MCH 23.5 L (25.0-34.0) pg MCHC 30.5 L (32.0-36.0) g/dL RDW Std Deviation 47.8 H (36.4-46.3) fL RDW Coeff of Balbina 17.3 H (11.5-14.5) % Plt Count 304 (130-400) K/uL MPV 11.8 (9.4-12.3) fL Absolute Nucleated RBC 0.21 H (0-0) K/uL Nucleated RBC % (auto) 1.4 % Sodium (136-145) mmol/L Potassium (3.5-5.1) mmol/L Chloride (98-107) mmol/L Carbon Dioxide (21-32) mmol/L Anion Gap (3-11) BUN (6-23) mg/dl Creatinine (0.6-1.2) mg/dl Est Cr Clr Drug Dosing ml/min Est GFR ( Amer) ml/min Est GFR (Non-Af Amer) ml/min BUN/Creatinine Ratio (10-20) Glucose (70-99(Fasting)) mg/dl POC Glucose 199 H 151 H (70-99) mg/dl Calcium (8.5-10.1) mg/dl Resident Activity Tracking Resident Involvement: Resident Care Provided Care Provided: Adult [facility] Medicine
[2022-07-10] MEDS: ALBUT/IPRATROP 3MG/0.5MG NEB 3 ML VIAL NEB SCH (07:31)
[2022-07-10 07:58] LABS: Hematocrit (blood only) 33.1 % (34.1-44.9); Hemoglobin 10.1 g/dl (12.0-16.0); Mean Corpuscular Hemoglobin 23.5 pg (25.0-34.0); Mean Corpuscular Hgb Conc 30.5 g/dL (32.0-36.0); Mean Corpuscular Volume 77.2 fL (80.0-100.0); Mean Platelet Volume 11.8 fL (9.4-12.3); Nucleated RBC # (auto) 0.21 K/uL (0-0); Nucleated RBC % (auto) 1.4 %; Platelet Count 304 K/uL (130-400); RDW Coefficient of Variation 17.3 % (11.5-14.5); RDW Standard Deviation 47.8 fL (36.4-46.3); Red Blood Count 4.29 M/uL (3.93-5.22)
[2022-07-10] MEDS: INSULIN ASPART PER UNIT SC SCH ×4 (08:13→21:07)
[2022-07-10] MEDS: NYSTATIN SUSP 500,000 U/5 ML UDC PO SCH ×4 (08:16→21:05)
[2022-07-10] MEDS: guaiFENesin 600 MG TABCR PO SCH ×2 (08:16→21:04)
[2022-07-10] MEDS: FLUTICASONE/VILANTEROL 200/25MCG 14 PUFFS/INHALER INH SCH (08:17)
[2022-07-10] MEDS: CYANOCOBALAMIN (B-12) 500 MCG TABLET PO SCH (08:17)
[2022-07-10] MEDS: CETIRIZINE HCL 10 MG TABLET PO SCH (08:17)
[2022-07-10] MEDS: FUROSEMIDE 40 MG/4 ML VIAL IV SCH ×2 (08:17→16:55)
[2022-07-10] MEDS: METOPROLOL SUCC 50MG EXT REL TAB PO SCH ×2 (08:17→21:06)
[2022-07-10] MEDS: PANTOprazole 40 MG TAB PO SCH (08:17)
[2022-07-10] MEDS: APIXABAN 2.5 MG TAB PO SCH ×2 (08:17→21:05)
[2022-07-10] MEDS: ATORVASTATIN 40 MG TAB PO SCH (08:17)
[2022-07-10] MEDS: FLUoxetine HCL 20 MG CAP PO SCH (08:17)
[2022-07-10] MEDS: MONTELUKAST SODIUM 10 MG TABLET PO SCH (08:17)
[2022-07-10 08:23] LABS: BUN Creatinine Ratio 30.4 (10-20); Calcium 8.4 mg/dl (8.5-10.1); Creatinine Clr Calc Pharmacy 17.1 ml/min; Est GFR (African American) 18.7 ml/min; Est GFR (Non-African American) 16.2 ml/min; Potassium 4.6 mmol/L (3.5-5.1)
[2022-07-10] MEDS ORDERED: CHLOROTHIAZIDE SODIUM 500 MG in DEXTROSE 5% 50 ML IV SCH ×2 (16:30→17:00)
[2022-07-10] MEDS ORDERED: ALBUT/IPRATROP 3MG/0.5MG NEB 3 ML VIAL NEB SCH (19:00)
--- NOTE | 2022-07-11 06:48 | Hospitalist Progress Note ---
Date of Service July 11, 2022 Assessment & Plan (1) Acute on chronic respiratory failure with hypoxia: Plan: Coco Sanchez is a 81 y/o female with PMHx significant for paroxysmal a-fib and sick sinus syndrome (s/p PPM in 2021, on Eliquis, BB and CCB), LE edema with c hronic HFpEF (TTE in 02/28 with EF 50-55%, LA dilation and elevated RVSP 40-50), COPD (on chronic 3-4L/min O2), T2DM, CKD3b (baseline Cr 1.3), MIKE, HTN, HLD, chronic incontinence, anxiety and GERD admitted for COPD exacerbation and progression from HFpEF to HFrEF (EF 25-30%) confirmed on cardiac cath 07/08 with need for continued aggressive diuresis. #HFrEF w/edema requiring aggressive diuresis - improving Worsening LE edema, LUE edema, orthopnea, hypoxia/SOB x several weeks, despite trial of increased Lasix to 40mg PO BID for several weeks. Follows with [facility] [place] Cardiology. Repeat TTE shows significant worsening of EF. Patient now carries diagnosis of HFrEF (EF 25-30%) confirmed on cardiac cath 07/08. Patient continues to have 2+ pitting edema BLE on 40 mg Lasix BID17. CHESTER stable. Dose of chlorothiazide provided significant diuresis - will repeat this afternoon. Will monitor CHESTER with AM BMP. [] dry weight is ~86-87k; patient has not been at dry weight in a long time [] Lasix 40 mg IV BID, monitor CHESTER [] repeat chlorothiazide 500 mg IV 30 minutes prior to Lasix this afternoon, monitor CHESTER [] strict I/Os, daily weights/BMP, heart-healthy diet/2g Na restriction [] cards consulted - cardiac cath done f/u report #COPD Exacerbation Treated with steroids x5 days, duonebs, azithromycin x5 days worsening productive cough, hypoxia/SOB, wheezes on exam, 20 pack year smoking history and known COPD. COVID-19 negative and CXR without evidence for PNA. BioFire negative. Scheduled nebs have greatly improved wheezing and work of breathing. Patient satting well on 3L NC (baseline home level). [] Duonebs CARMEN Q12H, Duonebs Q2H PRN [] pulmonary toilet: Mucinex BID, flutter valve, incentive spirometry [] on home 3L NC [] continue home inhalers #CHESTER superimposed on CKD - improving Cr 2.63, Upon further search baseline is not apparent ranges from 1.3 - 4. Creatinine improved from 2.63 to 2.25. Continue diuresis. Patient is fluid overloaded in the extravascular space and dry in the intravascular space. Continue to monitor. [] AM BMP [] diuresis as above [] avoid nephrotoxins #Hypovolemic hyponatremia in the setting of fluid overload Continue to monitor. #Hypokalemia 2/2 diuresis Continue to monitor #Paroxysmal a. fib s/p permanent pacemaker earlier this year. Currently rate-controlled. EKG with a-fib at 67 bpm and frequent AV dual-paced complexes. CXR with cardiomegaly (chronic) but no acute chest disease. [] decrease Eliquis to 2.5mg PO BID for now, given CKD (Cr >1.5) and advanced age [] continue home Metoprolol/Diltiazem #TIIDM A1c 6.6. Hold home meds and utilize SSI while hospitalized #Anemia Chronic iron deficiency anemia. Continue home ferrous sulfate. #HTN Normotensive while here. Continue home BB/CCB as stated above. #HLD Continue home statin. FEN/GI: heart-healthy/DM2/Na-restricted diet DVT Prophylaxis: Eliquis Code Status: full code Disposition: med/tele, PT/OT ordered (2) Acute kidney injury superimposed on CKD: (3) Left arm swelling: (4) Leg edema: (5) Paroxysmal atrial fibrillation: (6) T2DM (type 2 diabetes mellitus): (7) Anemia: (8) Hypertension: (9) Hyperlipidemia: Admission and Anticipated Discharge Date Admission Date: July 05, 2022 Supervising Physician Co-Signing Physician Notes I personally examined the patient and verified all choi points of history and exam, discussed case, and agree with decision making with Dr Hill. Feeling better. Granddaughter notes that she is looking much better as well. Does wonder about her sore mouth, and some dryness at the side of her. Vitals noted, in general she is awake and alert hard of hearing but no distress. HEENT normocephalic atraumatic mucous membranes moist. Breathing unlabored but she does have faint rales base left may be faint on base right somewhat difficult exam due to weakness and positioning, good effort. Skin shows no rashes no pallor or icterus. Acute on chronic hypoxic respiratory failure in the setting of COPD w/ exacerbation - baseline O2 3-4L. Continue duonebs PRN. Completed course of azithromycin, pred x 5 days. This appears to essentially resolved HFrEF w/ acute excaerbation - Cards consult - Dry wt ~87kg. Echo as noted. Improvingcontinue diuretics. CHESTER on CKDIII - Monitor BMP daily, stable on current diuresis Else see resident documentation as noted. Anticipate rehab at discharge Subjective Patient notes that she is doing well today. She is extremely hard of hearing - typing on a laptop is used for communication. She reports improvement in her edema. Review of Systems Review of Systems: See HPI Physical Exam Physical Exam: General: A&Ox3. NAD. Cooperative. Obese. HEENT: Atraumatic, normocephalic. Pulm: Coarse breath sounds. Wheezing has improved. No increase work of breathing. No respiratory distress. Cardiac: RRR, -mrg. Radial pulses intact and symmetrical. Bilateral 1-2+ pitting edema in LEs to knees. Abdominal: soft, non-distended Left arm: trace edema throughout left dorsal hand and no edema of forearm. No erythema/warmth/tenderness. Full active and passive ROM. Skin: warm, dry, no rash Results & Data Results & Data ([facility]) Vital Signs (Past 12 Hours) Vital Signs Temp Pulse Resp BP Pulse Ox O2 Del Method O2 Flow Rate 07/11/22 03:35 36.5 C 74 18 142/87 H 94 Nasal Cannula 2 07/11/22 00:14 36.4 C L 88 18 106/69 99 Nasal Cannula 2 07/10/22 23:17 Nasal Cannula 2 07/10/22 19:58 82 18 98 Nasal Cannula 3 07/10/22 18:49 36.6 C 82 18 123/78 99 Nasal Cannula 2 Laboratory Results 07/11/22 07/11/22 07/11/22 Range/Units 07:33 06:45 06:45 WBC 12.79 H (4.8-10.8) K/ul RBC 3.98 (3.93-5.22) M/uL Hgb 9.3 L (12.0-16.0) g/dl Hct 31.2 L (34.1-44.9) % MCV 78.4 L (80.0-100.0) fL MCH 23.4 L (25.0-34.0) pg MCHC 29.8 L (32.0-36.0) g/dL RDW Std Deviation 47.9 H (36.4-46.3) fL RDW Coeff of Balbina 17.0 H (11.5-14.5) % Plt Count 282 (130-400) K/uL MPV 11.6 (9.4-12.3) fL Absolute Nucleated RBC 0.06 H (0-0) K/uL Nucleated RBC % (auto) 0.5 % Sodium 136 (136-145) mmol/L Potassium 3.4 L D (3.5-5.1) mmol/L Chloride 94 L (98-107) mmol/L Carbon Dioxide 33 H (21-32) mmol/L Anion Gap 9 (3-11) BUN 76 H (6-23) mg/dl Creatinine 2.25 H D (0.6-1.2) mg/dl Est Cr Clr Drug Dosing 19.8 ml/min Est GFR ( Amer) 22.6 ml/min Est GFR (Non-Af Amer) 19.5 ml/min BUN/Creatinine Ratio 33.8 H (10-20) Glucose 93 (70-99(Fasting)) mg/dl POC Glucose 109 H (70-99) mg/dl Calcium 8.2 L (8.5-10.1) mg/dl 07/10/22 07/10/22 07/10/22 Range/Units 20:29 16:15 11:34 WBC (4.8-10.8) K/ul RBC (3.93-5.22) M/uL Hgb (12.0-16.0) g/dl Hct (34.1-44.9) % MCV (80.0-100.0) fL MCH (25.0-34.0) pg MCHC (32.0-36.0) g/dL RDW Std Deviation (36.4-46.3) fL RDW Coeff of Balbina (11.5-14.5) % Plt Count (130-400) K/uL MPV (9.4-12.3) fL Absolute Nucleated RBC (0-0) K/uL Nucleated RBC % (auto) % Sodium (136-145) mmol/L Potassium (3.5-5.1) mmol/L Chloride (98-107) mmol/L Carbon Dioxide (21-32) mmol/L Anion Gap (3-11) BUN (6-23) mg/dl Creatinine (0.6-1.2) mg/dl Est Cr Clr Drug Dosing ml/min Est GFR ( Amer) ml/min Est GFR (Non-Af Amer) ml/min BUN/Creatinine Ratio (10-20) Glucose (70-99(Fasting)) mg/dl POC Glucose 131 H 134 H 154 H (70-99) mg/dl Calcium (8.5-10.1) mg/dl Resident Activity Tracking Resident Involvement: Resident Care Provided Care Provided: Adult Hospital Medicine
[2022-07-11 07:16] LABS: Hematocrit (blood only) 31.2 % (34.1-44.9); Hemoglobin 9.3 g/dl (12.0-16.0); Mean Corpuscular Hemoglobin 23.4 pg (25.0-34.0); Mean Corpuscular Hgb Conc 29.8 g/dL (32.0-36.0); Mean Corpuscular Volume 78.4 fL (80.0-100.0); Mean Platelet Volume 11.6 fL (9.4-12.3); Nucleated RBC # (auto) 0.06 K/uL (0-0); Nucleated RBC % (auto) 0.5 %; Platelet Count 282 K/uL (130-400); RDW Standard Deviation 47.9 fL (36.4-46.3); Red Blood Count 3.98 M/uL (3.93-5.22); White Blood Count 12.79 K/ul (4.8-10.8)
[2022-07-11 08:15] LABS: BUN Creatinine Ratio 33.8 (10-20); Calcium 8.2 mg/dl (8.5-10.1); Creatinine Clr Calc Pharmacy 19.8 ml/min; Est GFR (African American) 22.6 ml/min; Est GFR (Non-African American) 19.5 ml/min; Potassium 3.4 mmol/L (3.5-5.1)
[2022-07-11] MEDS ORDERED: POTASSIUM CHLORIDE CRTAB 20 MEQ TABCR PO STA (09:02)
[2022-07-11] MEDS: INSULIN ASPART PER UNIT SC SCH ×4 (09:17→21:41)
[2022-07-11] MEDS: FUROSEMIDE 40 MG/4 ML VIAL IV SCH ×2 (09:22→18:21)
[2022-07-11] MEDS: NYSTATIN SUSP 500,000 U/5 ML UDC PO SCH ×4 (09:22→20:00)
[2022-07-11] MEDS: MONTELUKAST SODIUM 10 MG TABLET PO SCH (09:22)
[2022-07-11] MEDS: FLUTICASONE/VILANTEROL 200/25MCG 14 PUFFS/INHALER INH SCH (09:22)
[2022-07-11] MEDS: FLUoxetine HCL 20 MG CAP PO SCH (09:23)
[2022-07-11] MEDS: FERROUS SULFATE 325 MG TAB PO SCH (09:23)
[2022-07-11] MEDS: APIXABAN 2.5 MG TAB PO SCH ×2 (09:23→20:00)
[2022-07-11] MEDS: CETIRIZINE HCL 10 MG TABLET PO SCH (09:23)
[2022-07-11] MEDS: ATORVASTATIN 40 MG TAB PO SCH (09:23)
[2022-07-11] MEDS: CYANOCOBALAMIN (B-12) 500 MCG TABLET PO SCH (09:23)
[2022-07-11] MEDS: PANTOprazole 40 MG TAB PO SCH (09:23)
[2022-07-11] MEDS: METOPROLOL SUCC 50MG EXT REL TAB PO SCH ×2 (09:23→20:02)
[2022-07-11] MEDS: guaiFENesin 600 MG TABCR PO SCH ×2 (09:23→20:01)
[2022-07-11] MEDS ORDERED: CHLOROTHIAZIDE SODIUM 500 MG in DEXTROSE 5% 50 ML IV ONE (16:30)
--- NOTE | 2022-07-11 17:32 | Billing Data ---
Date of Service July 11, 2022 Coding Level of Care Code 11611 Subseq Hosp Care Lvl 3
[2022-07-11] MEDS: ALBUT/IPRATROP 3MG/0.5MG NEB 3 ML VIAL NEB SCH (19:23)
[2022-07-12] MEDS: ALBUT/IPRATROP 3MG/0.5MG NEB 3 ML VIAL NEB SCH ×2 (05:44→19:43)
[2022-07-12 06:47] LABS: Hematocrit (blood only) 33.3 % (34.1-44.9); Hemoglobin 9.7 g/dl (12.0-16.0); Mean Corpuscular Hgb Conc 29.1 g/dL (32.0-36.0); Mean Corpuscular Volume 79.1 fL (80.0-100.0); Nucleated RBC # (auto) 0.05 K/uL (0-0); Nucleated RBC % (auto) 0.4 %; Platelet Count 253 K/uL (130-400); RDW Coefficient of Variation 17.1 % (11.5-14.5); RDW Standard Deviation 48.4 fL (36.4-46.3); Red Blood Count 4.21 M/uL (3.93-5.22); White Blood Count 11.22 K/ul (4.8-10.8)
[2022-07-12 07:09] LABS: BUN Creatinine Ratio 36.1 (10-20); Calcium 8.4 mg/dl (8.5-10.1); Creatinine Clr Calc Pharmacy 24.5 ml/min; Est GFR (African American) 29.6 ml/min; Est GFR (Non-African American) 25.6 ml/min; Potassium 3.1 mmol/L (3.5-5.1)
--- NOTE | 2022-07-12 07:17 | Hospitalist Progress Note ---
Date of Service July 12, 2022 Assessment & Plan (1) Acute on chronic respiratory failure with hypoxia: Plan: Coco Sanchez is a 81 y/o female with PMHx significant for paroxysmal a-fib and sick sinus syndrome (s/p PPM in 2021, on Eliquis, BB and CCB), LE edema with c hronic HFpEF (TTE in 02/28 with EF 50-55%, LA dilation and elevated RVSP 40-50), COPD (on chronic 3-4L/min O2), T2DM, CKD3b (baseline Cr 1.3), MIKE, HTN, HLD, chronic incontinence, anxiety and GERD admitted for COPD exacerbation and progression from HFpEF to HFrEF (EF 25-30%) confirmed on cardiac cath 07/08 with need for continued aggressive diuresis. #HFrEF w/edema requiring aggressive diuresis - improving Known HFpEF presented with worsening LE edema, LUE edema, orthopnea, hypoxia/SOB x several weeks non-responsive to increased PO Lasix. Repeat TTE shows significant worsening of EF. Patient now carries diagnosis of HFrEF (EF 25-30%) confirmed on cardiac cath 07/08. Achieving productive diuresis with Lasix 40 mg BID17 with chlorothiazide 30 minutes prior. Cr downtrending - can continue to diuresis as kidneys tolerate. Will monitor CHESTER with AM BMP. [] dry weight is ~86-87k; patient has not been at dry weight in a long time [] Lasix 40 mg IV BID, monitor CHESTER [] repeat chlorothiazide 500 mg IV 30 minutes prior to Lasix this afternoon, monitor CHESTER [] strict I/Os, daily weights/BMP, heart-healthy diet/2g Na restriction [] cards consulted - cardiac cath done confirmed HFrEF #COPD Exacerbation Known COPD, 20 pack year smoking history, presented with wheezing, SOB, worsening cough. COVID-19 negative and CXR without evidence for PNA. BioFire negative. Treated with steroids and azithromycin x5 days, duonebs. Patient satting well on 3L NC (baseline home level). [] Duonebs CARMEN Q12H, Duonebs Q2H PRN [] pulmonary toilet: Mucinex BID, flutter valve, incentive spirometry [] on home 3L NC [] continue home inhalers #CHESTER superimposed on CKD - improving Cr 2.63, Upon further search baseline is not apparent ranges from 1.3 - 4. Creatinine improved from 2.63 to 2.25, now 1.8. Continue diuresis as tolerated. Patient is fluid overloaded in the extravascular space and dry in the intravascular space. Continue to monitor. [] AM BMP [] diuresis as above [] avoid nephrotoxins #Hypovolemic hyponatremia in the setting of fluid overload Continue to monitor. #Hypokalemia 2/2 diuresis Continue to monitor [] 40 mEq BID of K #Nausea/Diarrhea? Duration unclear. Consistency unclear. Zofran given for nausea. Will confirm with family. Will continue to monitor. #Paroxysmal a. fib s/p permanent pacemaker earlier this year. Currently rate-controlled. EKG with a-fib at 67 bpm and frequent AV dual-paced complexes. CXR with cardiomegaly (chronic) but no acute chest disease. [] decrease Eliquis to 2.5mg PO BID for now, given CKD (Cr >1.5) and advanced age [] continue home Metoprolol/Diltiazem #TIIDM A1c 6.6. Hold home meds and utilize SSI while hospitalized #Anemia Chronic iron deficiency anemia. Continue home ferrous sulfate. #HTN Normotensive while here. Continue home BB/CCB as stated above. #HLD Continue home statin. FEN/GI: heart-healthy/DM2/Na-restricted diet DVT Prophylaxis: Eliquis Code Status: full code Disposition: med/tele, PT/OT ordered Family Update: discussed condition with granddaughter at bedside 07/11/22 (2) Acute kidney injury superimposed on CKD: (3) Left arm swelling: (4) Leg edema: (5) Paroxysmal atrial fibrillation: (6) T2DM (type 2 diabetes mellitus): (7) Anemia: (8) Hypertension: (9) Hyperlipidemia: Admission and Anticipated Discharge Date Admission Date: July 05, 2022 Supervising Physician Co-Signing Physician Notes I personally examined the patient and verified all choi points of history and exam, discussed case, and agree with decision making with Dr Hill. Feeling better. No new complaints Vitals noted, in general she is awake and alert hard of hearing but no distress. HEENT normocephalic atraumatic mucous membranes moist. Breathing unlabored no accessory muscle use, good effort. Skin shows no rashes no pallor or icterus. Acute on chronic hypoxic respiratory failure in the setting of COPD w/ exacerbation - baseline O2 3-4L. Continue duonebs PRN. Completed course of azithromycin, pred x 5 days. This appears to essentially resolved HFrEF w/ acute excaerbation - Cards consult - Dry wt ~87kg. Echo as noted. Improvingcontinue diuretics. She is reaching a point where afterload reduction would likely be beneficialparticularly if she is getting closer to being euvolemic and her creatinine is improving, something such as Entresto is reasonable to considergiven her elevated creatinine, certainly her risk/benefit balance is more narrowwill try to discuss with her as best as possible (and probably her granddaughter given the hearing loss creating a fairly significant barrier to communication)if she would like to proceed in that direction, given that she will be in the hospital and then rehab, we would be on to follow creatinine closely and ensure no elevations; at the same time if she would rather not head in that direction, probably could get a degree of benefit from hydralazine/Imdur CHESTER on CKDIII - Monitor BMP daily, stable on current diuresis Else see resident documentation as noted. Anticipate rehab at discharge Subjective Per nursing patient has been having loose stools for 2-3 days. Duration is not fully clear. Patient reports having intermittent diarrhea at home. She also had nausea this morning. May have been diet related as patient states "I wanted that [place]aur[place] toast". Nausea currently improved. Patient is hard of hearing. Laptop used to communicate. Review of Systems Review of Systems: See HPI Physical Exam Physical Exam: General: A&Ox3. NAD. Cooperative. Obese. HEENT: Atraumatic, normocephalic. Pulm: Coarse breath sounds. Wheezing has improved. No increase work of breathing. No respiratory distress. Cardiac: RRR, -mrg. Radial pulses intact and symmetrical. Bilateral 1-2+ pitting edema in LEs to knees. Abdominal: soft, non-distended, non-tender Left arm: trace edema throughout left dorsal hand and no edema of forearm. No erythema/warmth/tenderness. Full active and passive ROM. Skin: warm, dry, no rash Results & Data Results & Data ([facility]) Vital Signs (Past 12 Hours) Vital Signs Temp Pulse Resp BP BP Pulse Ox O2 Del Method 07/12/22 07:04 36.4 C L 84 18 145/83 H 97 Nasal Cannula 07/12/22 05:44 81 18 97 Nasal Cannula 07/12/22 03:44 36.6 C 84 126/79 98 Nasal Cannula 07/11/22 20:00 Nasal Cannula 07/11/22 22:37 36.5 C 91 H 19 143/86 H 93 Nasal Cannula 07/11/22 19:39 80 18 96 Nasal Cannula O2 Flow Rate 07/12/22 07:04 2 07/12/22 05:44 3 07/12/22 03:44 2 07/11/22 20:00 2 07/11/22 22:37 2 07/11/22 19:39 3 Laboratory Results 07/12/22 07/12/22 07/11/22 Range/Units 06:23 06:23 20:25 WBC 11.22 H (4.8-10.8) K/ul RBC 4.21 (3.93-5.22) M/uL Hgb 9.7 L (12.0-16.0) g/dl Hct 33.3 L (34.1-44.9) % MCV 79.1 L (80.0-100.0) fL MCH 23.0 L (25.0-34.0) pg MCHC 29.1 L (32.0-36.0) g/dL RDW Std Deviation 48.4 H (36.4-46.3) fL RDW Coeff of Blabina 17.1 H (11.5-14.5) % Plt Count 253 (130-400) K/uL MPV 11.0 (9.4-12.3) fL Absolute Nucleated RBC 0.05 H (0-0) K/uL Nucleated RBC % (auto) 0.4 % Sodium 138 (136-145) mmol/L Potassium 3.1 L (3.5-5.1) mmol/L Chloride 93 L (98-107) mmol/L Carbon Dioxide 36 H (21-32) mmol/L Anion Gap 9 (3-11) BUN 65 H (6-23) mg/dl Creatinine 1.80 H D (0.6-1.2) mg/dl Est Cr Clr Drug Dosing 24.5 ml/min Est GFR ( Amer) 29.6 ml/min Est GFR (Non-Af Amer) 25.6 ml/min BUN/Creatinine Ratio 36.1 H (10-20) Glucose 93 (70-99(Fasting)) mg/dl POC Glucose 151 H (70-99) mg/dl Calcium 8.4 L (8.5-10.1) mg/dl 07/11/22 07/11/22 07/11/22 Range/Units 16:26 11:01 07:33 WBC (4.8-10.8) K/ul RBC (3.93-5.22) M/uL Hgb (12.0-16.0) g/dl Hct (34.1-44.9) % MCV (80.0-100.0) fL MCH (25.0-34.0) pg MCHC (32.0-36.0) g/dL RDW Std Deviation (36.4-46.3) fL RDW Coeff of Balbina (11.5-14.5) % Plt Count (130-400) K/uL MPV (9.4-12.3) fL Absolute Nucleated RBC (0-0) K/uL Nucleated RBC % (auto) % Sodium (136-145) mmol/L Potassium (3.5-5.1) mmol/L Chloride (98-107) mmol/L Carbon Dioxide (21-32) mmol/L Anion Gap (3-11) BUN (6-23) mg/dl Creatinine (0.6-1.2) mg/dl Est Cr Clr Drug Dosing ml/min Est GFR ( Amer) ml/min Est GFR (Non-Af Amer) ml/min BUN/Creatinine Ratio (10-20) Glucose (70-99(Fasting)) mg/dl POC Glucose 122 H 101 H 109 H (70-99) mg/dl Calcium (8.5-10.1) mg/dl 07/11/22 07/11/22 Range/Units 06:45 06:45 WBC 12.79 H (4.8-10.8) K/ul RBC 3.98 (3.93-5.22) M/uL Hgb 9.3 L (12.0-16.0) g/dl Hct 31.2 L (34.1-44.9) % MCV 78.4 L (80.0-100.0) fL MCH 23.4 L (25.0-34.0) pg MCHC 29.8 L (32.0-36.0) g/dL RDW Std Deviation 47.9 H (36.4-46.3) fL RDW Coeff of Balbina 17.0 H (11.5-14.5) % Plt Count 282 (130-400) K/uL MPV 11.6 (9.4-12.3) fL Absolute Nucleated RBC 0.06 H (0-0) K/uL Nucleated RBC % (auto) 0.5 % Sodium 136 (136-145) mmol/L Potassium 3.4 L D (3.5-5.1) mmol/L Chloride 94 L (98-107) mmol/L Carbon Dioxide 33 H (21-32) mmol/L Anion Gap 9 (3-11) BUN 76 H (6-23) mg/dl Creatinine 2.25 H D (0.6-1.2) mg/dl Est Cr Clr Drug Dosing 19.8 ml/min Est GFR ( Amer) 22.6 ml/min Est GFR (Non-Af Amer) 19.5 ml/min BUN/Creatinine Ratio 33.8 H (10-20) Glucose 93 (70-99(Fasting)) mg/dl POC Glucose (70-99) mg/dl Calcium 8.2 L (8.5-10.1) mg/dl Resident Activity Tracking Resident Involvement: Resident Care Provided Care Provided: [facility]
[2022-07-12] MEDS: INSULIN ASPART PER UNIT SC SCH ×4 (07:56→22:00)
[2022-07-12] MEDS: ATORVASTATIN 40 MG TAB PO SCH (09:03)
[2022-07-12] MEDS: METOPROLOL SUCC 50MG EXT REL TAB PO SCH ×2 (09:03→21:27)
[2022-07-12] MEDS: guaiFENesin 600 MG TABCR PO SCH ×2 (09:03→21:28)
[2022-07-12] MEDS: CYANOCOBALAMIN (B-12) 500 MCG TABLET PO SCH (09:03)
[2022-07-12] MEDS: APIXABAN 2.5 MG TAB PO SCH ×2 (09:04→21:28)
[2022-07-12] MEDS: MONTELUKAST SODIUM 10 MG TABLET PO SCH (09:04)
[2022-07-12] MEDS: NYSTATIN SUSP 500,000 U/5 ML UDC PO SCH ×4 (09:04→21:28)
[2022-07-12] MEDS: CETIRIZINE HCL 10 MG TABLET PO SCH (09:04)
[2022-07-12] MEDS: FUROSEMIDE 40 MG/4 ML VIAL IV SCH ×2 (09:04→16:47)
[2022-07-12] MEDS: PANTOprazole 40 MG TAB PO SCH (09:04)
[2022-07-12] MEDS: FLUoxetine HCL 20 MG CAP PO SCH (09:04)
[2022-07-12] MEDS ORDERED: ONDANSETRON INJ 2 MG/ML 2 ML VIAL IV STA (09:06)
[2022-07-12] MEDS: FLUTICASONE/VILANTEROL 200/25MCG 14 PUFFS/INHALER INH SCH (09:28)
[2022-07-12] MEDS: POTASSIUM CHLORIDE CRTAB 20 MEQ TABCR PO SCH ×2 (09:28→21:27)
[2022-07-12] MEDS ORDERED: CHLOROTHIAZIDE SODIUM 500 MG in DEXTROSE 5% 50 ML IV ONE (16:30)
--- NOTE | 2022-07-12 19:35 | Billing Data ---
Date of Service July 12, 2022 Coding Level of Care Code 91448 SUB INP/OBS CARE
[2022-07-12] MEDS ORDERED: LORazepam 0.5 MG TAB PO SCH (21:40)
[2022-07-13 06:44] LABS: Hematocrit (blood only) 33.8 % (34.1-44.9); Hemoglobin 9.8 g/dl (12.0-16.0); Mean Corpuscular Hemoglobin 23.2 pg (25.0-34.0); Mean Corpuscular Volume 80.1 fL (80.0-100.0); Mean Platelet Volume 11.3 fL (9.4-12.3); Nucleated RBC # (auto) 0.05 K/uL (0-0); Nucleated RBC % (auto) 0.4 %; Platelet Count 272 K/uL (130-400); RDW Standard Deviation 49.3 fL (36.4-46.3); Red Blood Count 4.22 M/uL (3.93-5.22); White Blood Count 11.54 K/ul (4.8-10.8)
--- NOTE | 2022-07-13 06:48 | Hospitalist Progress Note ---
Date of Service July 13, 2022 Assessment & Plan (1) Acute on chronic respiratory failure with hypoxia: Plan: Coco Sanchez is a 81 y/o female with PMHx significant for paroxysmal a-fib and sick sinus syndrome (s/p PPM in 2021, on Eliquis, BB and CCB), LE edema with c hronic HFpEF (TTE in 02/28 with EF 50-55%, LA dilation and elevated RVSP 40-50), COPD (on chronic 3-4L/min O2), T2DM, CKD3b (baseline Cr 1.3), MIKE, HTN, HLD, chronic incontinence, anxiety and GERD admitted for COPD exacerbation and progression from HFpEF to HFrEF (EF 25-30%) confirmed on cardiac cath 07/08 with need for continued aggressive diuresis. #HFrEF w/edema requiring aggressive diuresis - improving Known HFpEF presented with worsening LE edema, LUE edema, orthopnea, hypoxia/SOB x several weeks non-responsive to increased PO Lasix. Repeat TTE shows significant worsening of EF. Patient now carries diagnosis of HFrEF (EF 25-30%) confirmed on cardiac cath 07/08. Could benefit from afterload reduction - entresto/MILAN/ARB. Patient current Cr 1.62 and improving with diuresis. Could be reasonable to start one of these medications and monitor Cr. Likely will be gong to encompass, so we would be able to continue monitoring Cr. If patient/family not interested in this line of treatment could consider Imdur/hydralazine. Will discuss. Achieving productive diuresis with Lasix 40 mg BID17 with chlorothiazide 30 minutes prior. Cr downtrending - can continue to diuresis as kidneys tolerate. Will monitor CHESTER with AM BMP. [] dry weight is ~86-87k; patient has not been at dry weight in a long time [] Lasix 40 mg IV BID, monitor CHESTER [] repeat chlorothiazide 500 mg IV 30 minutes prior to Lasix this afternoon, monitor CHESTER [] strict I/Os, daily weights/BMP, heart-healthy diet/2g Na restriction [] cards consulted - cardiac cath done confirmed HFrEF #COPD Exacerbation Known COPD, 20 pack year smoking history, presented with wheezing, SOB, worsening cough. COVID-19 negative and CXR without evidence for PNA. BioFire negative. Treated with steroids and azithromycin x5 days, duonebs. Patient satting well on 3L NC (baseline home level). [] Duonebs CARMEN Q12H, Duonebs Q2H PRN [] pulmonary toilet: Mucinex BID, flutter valve, incentive spirometry [] on home 3L NC [] continue home inhalers #CHESTER superimposed on CKD - improving Cr 2.63, Upon further search baseline is not apparent ranges from 1.3 - 4. Creatinine improved from 2.63 to 2.25, now 1.8. Continue diuresis as tolerated. Patient is fluid overloaded in the extravascular space and dry in the intravascular space. Continue to monitor. [] AM BMP [] diuresis as above [] avoid nephrotoxins #Hypovolemic hyponatremia in the setting of fluid overload Continue to monitor. #Hypokalemia 2/2 diuresis Continue to monitor [] 40 mEq BID of K #Nausea/Diarrhea? Duration unclear. Consistency unclear. Zofran given for nausea. Will confirm with family. Will continue to monitor. #Paroxysmal a. fib s/p permanent pacemaker earlier this year. Currently rate-controlled. EKG with a-fib at 67 bpm and frequent AV dual-paced complexes. CXR with cardiomegaly (chronic) but no acute chest disease. [] decrease Eliquis to 2.5mg PO BID for now, given CKD (Cr >1.5) and advanced age [] continue home Metoprolol/Diltiazem #TIIDM A1c 6.6. Hold home meds and utilize SSI while hospitalized #Anemia Chronic iron deficiency anemia. Continue home ferrous sulfate. #HTN Normotensive while here. Continue home BB/CCB as stated above. #HLD Continue home statin. FEN/GI: heart-healthy/DM2/Na-restricted diet DVT Prophylaxis: Diane Code Status: full code Disposition: med/tele, PT/OT ordered Family Update: discussed condition with granddaughter at bedside 07/11/22 (2) Acute kidney injury superimposed on CKD: (3) Left arm swelling: (4) Leg edema: (5) Paroxysmal atrial fibrillation: (6) T2DM (type 2 diabetes mellitus): (7) Anemia: (8) Hypertension: (9) Hyperlipidemia: Admission and Anticipated Discharge Date Admission Date: July 05, 2022 Supervising Physician Co-Signing Physician Notes I personally examined the patient and verified all choi points of history and exam, discussed case, and agree with decision making with Dr Hill. sleepy, fatigued Vitals noted, in general she is awake and alert hard of hearing but no distress. HEENT normocephalic atraumatic mucous membranes moist. Breathing unlabored no accessory muscle use, good effort. Skin shows no rashes no pallor or icterus. Acute on chronic hypoxic respiratory failure in the setting of COPD w/ exacerbation - baseline O2 3-4L. Continue duonebs PRN. Completed course of azithromycin, pred x 5 days. This appears to essentially resolved HFrEF w/ acute excaerbation - Cards consult - Dry wt ~87kg. Echo as noted. Improvingcontinue diuretics. She is reaching a point where afterload reduction would likely be beneficialparticularly if she is getting closer to being euvolemic and her creatinine is improving, something such as Entresto is reasonable to considergiven her elevated creatinine, certainly her risk/benefit balance is more narrowwill try to discuss with her as best as possible (and probably her granddaughter given the hearing loss creating a fairly significant barrier to communication)if she would like to proceed in that direction, given that she will be in the hospital and then rehab, we would be on to follow creatinine closely and ensure no elevations; at the same time if she would rather not head in that direction, probably could get a degree of benefit from hydralazine/Imdur. continue currrent care for now. CHESTER on CKDIII - Monitor BMP daily, stable on current diuresis Else see resident documentation as noted. Anticipate rehab at discharge, while still would benefit from ongoing diureis, would be stable for rehab if bed available Subjective Patient hard of hearing. Use laptop to communicate. Patient sleeping prior to eval. Overall improving. Review of Systems Review of Systems: See HPI Physical Exam Physical Exam: General: A&Ox3. NAD. Cooperative. Obese. HEENT: Atraumatic, normocephalic. Pulm: Coarse breath sounds. Wheezing has improved. No increase work of breathing. No respiratory distress. Cardiac: RRR, -mrg. Radial pulses intact and symmetrical. Bilateral 1-2+ pitting edema in LEs to knees. Abdominal: soft, non-distended, non-tender Left arm: trace edema throughout left dorsal hand and no edema of forearm. No erythema/warmth/tenderness. Full active and passive ROM. Skin: warm, dry, no rash Results & Data Results & Data ([facility]) Vital Signs (Past 12 Hours) Vital Signs Temp Pulse Pulse Resp BP BP Pulse Ox 07/13/22 02:59 36.4 C L 95 H 18 113/82 93 07/13/22 00:00 85 07/12/22 23:55 36.6 C 96 H 18 138/82 98 07/12/22 23:40 91 H 07/12/22 22:52 36.3 C L 89 17 108/68 98 07/12/22 21:15 07/12/22 19:43 20 95 07/12/22 19:00 36.4 C L 97 H 17 139/77 97 O2 Del Method O2 Flow Rate 07/13/22 02:59 Nasal Cannula 2 07/13/22 00:00 07/12/22 23:55 Room Air 07/12/22 23:40 07/12/22 22:52 Nasal Cannula 2 07/12/22 21:15 Nasal Cannula 2 07/12/22 19:43 Nasal Cannula 2 07/12/22 19:00 Nasal Cannula 2 Laboratory Results 07/13/22 07/13/22 07/13/22 Range/Units 07:37 05:48 05:48 WBC 11.54 H (4.8-10.8) K/ul RBC 4.22 (3.93-5.22) M/uL Hgb 9.8 L (12.0-16.0) g/dl Hct 33.8 L (34.1-44.9) % MCV 80.1 (80.0-100.0) fL MCH 23.2 L (25.0-34.0) pg MCHC 29.0 L (32.0-36.0) g/dL RDW Std Deviation 49.3 H (36.4-46.3) fL RDW Coeff of Balbina 17.0 H (11.5-14.5) % Plt Count 272 (130-400) K/uL MPV 11.3 (9.4-12.3) fL Absolute Nucleated RBC 0.05 H (0-0) K/uL Nucleated RBC % (auto) 0.4 % Sodium 140 (136-145) mmol/L Potassium 3.6 (3.5-5.1) mmol/L Chloride 93 L (98-107) mmol/L Carbon Dioxide 39 H (21-32) mmol/L Anion Gap 8 (3-11) BUN 60 H (6-23) mg/dl Creatinine 1.62 H (0.6-1.2) mg/dl Est Cr Clr Drug Dosing 26.6 ml/min Est GFR ( Amer) 33.7 ml/min Est GFR (Non-Af Amer) 29.1 ml/min BUN/Creatinine Ratio 37.0 H (10-20) Glucose 110 H (70-99(Fasting)) mg/dl POC Glucose 118 H (70-99) mg/dl Calcium 8.9 (8.5-10.1) mg/dl Phosphorus 4.0 (2.5-4.9) mg/dl Magnesium 2.1 (1.7-2.4) mg/dl 07/12/22 07/12/22 07/12/22 Range/Units 20:22 16:26 15:30 WBC (4.8-10.8) K/ul RBC (3.93-5.22) M/uL Hgb (12.0-16.0) g/dl Hct (34.1-44.9) % MCV (80.0-100.0) fL MCH (25.0-34.0) pg MCHC (32.0-36.0) g/dL RDW Std Deviation (36.4-46.3) fL RDW Coeff of Balbina (11.5-14.5) % Plt Count (130-400) K/uL MPV (9.4-12.3) fL Absolute Nucleated RBC (0-0) K/uL Nucleated RBC % (auto) % Sodium (136-145) mmol/L Potassium 3.6 (3.5-5.1) mmol/L Chloride (98-107) mmol/L Carbon Dioxide (21-32) mmol/L Anion Gap (3-11) BUN (6-23) mg/dl Creatinine (0.6-1.2) mg/dl Est Cr Clr Drug Dosing ml/min Est GFR ( Amer) ml/min Est GFR (Non-Af Amer) ml/min BUN/Creatinine Ratio (10-20) Glucose (70-99(Fasting)) mg/dl POC Glucose 220 H 108 H (70-99) mg/dl Calcium (8.5-10.1) mg/dl Phosphorus (2.5-4.9) mg/dl Magnesium (1.7-2.4) mg/dl 07/12/22 Range/Units 11:19 WBC (4.8-10.8) K/ul RBC (3.93-5.22) M/uL Hgb (12.0-16.0) g/dl Hct (34.1-44.9) % MCV (80.0-100.0) fL MCH (25.0-34.0) pg MCHC (32.0-36.0) g/dL RDW Std Deviation (36.4-46.3) fL RDW Coeff of Balbina (11.5-14.5) % Plt Count (130-400) K/uL MPV (9.4-12.3) fL Absolute Nucleated RBC (0-0) K/uL Nucleated RBC % (auto) % Sodium (136-145) mmol/L Potassium (3.5-5.1) mmol/L Chloride (98-107) mmol/L Carbon Dioxide (21-32) mmol/L Anion Gap (3-11) BUN (6-23) mg/dl Creatinine (0.6-1.2) mg/dl Est Cr Clr Drug Dosing ml/min Est GFR ( Amer) ml/min Est GFR (Non-Af Amer) ml/min BUN/Creatinine Ratio (10-20) Glucose (70-99(Fasting)) mg/dl POC Glucose 124 H (70-99) mg/dl Calcium (8.5-10.1) mg/dl Phosphorus (2.5-4.9) mg/dl Magnesium (1.7-2.4) mg/dl Resident Activity Tracking Resident Involvement: Resident Care Provided Care Provided: Adult [facility]
[2022-07-13 07:09] LABS: Calcium 8.9 mg/dl (8.5-10.1); Creatinine Clr Calc Pharmacy 26.6 ml/min; Est GFR (African American) 33.7 ml/min; Est GFR (Non-African American) 29.1 ml/min; Magnesium 2.1 mg/dl (1.7-2.4); Potassium 3.6 mmol/L (3.5-5.1)
[2022-07-13] MEDS: NYSTATIN SUSP 500,000 U/5 ML UDC PO SCH ×4 (08:20→20:41)
[2022-07-13] MEDS: METOPROLOL SUCC 50MG EXT REL TAB PO SCH ×2 (08:20→20:41)
[2022-07-13] MEDS: APIXABAN 2.5 MG TAB PO SCH ×2 (08:20→20:44)
[2022-07-13] MEDS: guaiFENesin 600 MG TABCR PO SCH ×2 (08:21→20:43)
[2022-07-13] MEDS: POTASSIUM CHLORIDE CRTAB 20 MEQ TABCR PO SCH ×2 (08:21→20:42)
[2022-07-13] MEDS: MONTELUKAST SODIUM 10 MG TABLET PO SCH (08:22)
[2022-07-13] MEDS: CYANOCOBALAMIN (B-12) 500 MCG TABLET PO SCH (08:22)
[2022-07-13] MEDS: FLUoxetine HCL 20 MG CAP PO SCH (08:22)
[2022-07-13] MEDS: CETIRIZINE HCL 10 MG TABLET PO SCH (08:22)
[2022-07-13] MEDS: FERROUS SULFATE 325 MG TAB PO SCH (08:22)
[2022-07-13] MEDS: ATORVASTATIN 40 MG TAB PO SCH (08:23)
[2022-07-13] MEDS: PANTOprazole 40 MG TAB PO SCH (08:23)
[2022-07-13] MEDS: FUROSEMIDE 40 MG/4 ML VIAL IV SCH ×2 (08:24→15:47)
[2022-07-13] MEDS: INSULIN ASPART PER UNIT SC SCH ×4 (08:30→20:39)
[2022-07-13] MEDS: FLUTICASONE/VILANTEROL 200/25MCG 14 PUFFS/INHALER INH SCH (10:17)
[2022-07-13] MEDS: MICONAZOLE NITRATE POWDER 43 GM EXT SCH (14:51)
[2022-07-13] MEDS ORDERED: CHLOROTHIAZIDE SODIUM 500 MG in DEXTROSE 5% 50 ML IV ONE (16:30)
--- NOTE | 2022-07-13 20:32 | Billing Data ---
Date of Service July 13, 2022 Coding Level of Care Code 29226 SUB INP/OBS CARE
[2022-07-13] MEDS: ONDANSETRON INJ 2 MG/ML 2 ML VIAL IV PRN (20:40)
--- NOTE | 2022-07-14 07:24 | Hospitalist Progress Note ---
Date of Service July 14, 2022 Assessment & Plan (1) Acute on chronic respiratory failure with hypoxia: Plan: Coco Sanchez is a 81 y/o female with PMHx significant for paroxysmal a-fib and sick sinus syndrome (s/p PPM in 2021, on Eliquis, BB and CCB), LE edema with c hronic HFpEF (TTE in 02/28 with EF 50-55%, LA dilation and elevated RVSP 40-50), COPD (on chronic 3-4L/min O2), T2DM, CKD3b (baseline Cr 1.3), MIKE, HTN, HLD, chronic incontinence, anxiety and GERD admitted for COPD exacerbation and progression from HFpEF to HFrEF (EF 25-30%) confirmed on cardiac cath 07/08 with fluid overload who is clinically improving and approaching dry weight. #HFrEF w/edema requiring aggressive diuresis - improving Known HFpEF presented with worsening LE edema, LUE edema, orthopnea, hypoxia/SOB x several weeks non-responsive to increased PO Lasix. Repeat TTE shows significant worsening of EF. Patient now carries diagnosis of HFrEF (EF 25-30%) confirmed on cardiac cath 07/08. Could benefit from afterload reduction - entresto/MILAN/ARB. Could be reasonable to start one of these medications and monitor Cr as patient is going to [facility] this would not be difficult to do. If patient/family not interested in this line of treatment could consider Imdur/hydralazine. Will discuss. Had successful and productive diuresis with Lasix 40 mg BID17 with chlorothiazide 500 IV 30 minutes prior x3 doses. Patient appears to be close to dry weight - will hold off on chlorothiazide at this point. Cr downtrending - can continue to diuresis as kidneys tolerate. Will monitor CHESTER with AM BMP. [] dry weight is ~86-87k; patient has not been at dry weight in a long time [] Lasix 40 mg IV BID, monitor CHESTER [] strict I/Os, daily weights/BMP, heart-healthy diet/2g Na restriction [] cards consulted - cardiac cath done confirmed HFrEF #COPD Exacerbation Known COPD, 20 pack year smoking history, presented with wheezing, SOB, worsening cough. COVID-19 negative and CXR without evidence for PNA. BioFire negative. Treated with steroids and azithromycin x5 days, duonebs. Patient satting well on 3L NC (baseline home level). Patient did develop thrush likely in the setting of aggressive duoneb use. Treated with nystatin swish and swallow - improved. [] Duonebs PRN [] pulmonary toilet: Mucinex BID, flutter valve, incentive spirometry [] on home 3L NC [] continue home inhalers #CHESTER superimposed on CKD - improving Baseline is not apparent ranges from 1.3 - 4. Creatinine 2.63 improved to 1.53. Continue diuresis as tolerated. Patient is fluid overloaded in the extravascular space and dry in the intravascular space. Continue to monitor. [] AM BMP [] diuresis as above [] avoid nephrotoxins #Hypovolemic hyponatremia in the setting of fluid overload Continue to monitor. #Hypokalemia 2/2 diuresis Repleted K as needed during hospital stay. Continue to monitor with AM BMP #Paroxysmal a. fib s/p permanent pacemaker earlier this year. Currently rate-controlled. EKG with a-fib at 67 bpm and frequent AV dual-paced complexes. CXR with cardiomegaly (chronic) but no acute chest disease. [] decrease Eliquis to 2.5mg PO BID for now, given CKD (Cr >1.5) and advanced age [] continue home Metoprolol/Diltiazem #TIIDM A1c 6.6. Hold home meds and utilize SSI while hospitalized #Anemia Chronic iron deficiency anemia. Continue home ferrous sulfate. #HTN Normotensive while here. Continue home BB/CCB as stated above. #HLD Continue home statin. FEN/GI: heart-healthy/DM2/Na-restricted diet DVT Prophylaxis: Eliquis Code Status: full code Disposition: med/tele, PT/OT ordered - d/c [facility], awaiting bed Family Update: discussed condition with granddaughter at bedside 07/11/22, attempted to call 07/14/22 (2) Acute kidney injury superimposed on CKD: (3) Left arm swelling: (4) Leg edema: (5) Paroxysmal atrial fibrillation: (6) T2DM (type 2 diabetes mellitus): (7) Anemia: (8) Hypertension: (9) Hyperlipidemia: Admission and Anticipated Discharge Date Admission Date: July 05, 2022 Supervising Physician Co-Signing Physician Notes I personally examined the patient and verified all choi points of history and exam, discussed case, and agree with decision making with Dr Hill. sleepy, fatigued Vitals noted, resting comfortably nad heent nc at mmm breathing unlabored no acc essory muscles good effort no lateralzing signs at rest Acute on chronic hypoxic respiratory failure in the setting of COPD w/ exacerbation - baseline O2 3-4L. Continue duonebs PRN. Completed course of azithromycin, pred x 5 days. This appears to essentially resolved HFrEF w/ acute excaerbation - Echo as noted. Improvingcontinue diuretics. She is reaching a point where afterload reduction would likely be beneficialparticularly if she is getting closer to being euvolemic and her creatinine is improving, something such as Entresto is reasonable to considergiven her elevated creatinine, certainly her risk/benefit balance is more narrowwill try to discuss with her as best as possible (and probably her granddaughter given the hearing loss creating a fairly significant barrier to communication)if she would like to proceed in that direction, given that she will be in the hospital and then rehab, we would be on to follow creatinine closely and ensure no elevations; at the same time if she would rather not head in that direction, probably could get a degree of benefit from hydralazine/Imdur. continue current care for now. CHESTER on CKDIII - Monitor BMP daily, stable on current diuresis for rehab Subjective Patient hard of hearing. Use laptop to communicate. Patient much more alert and awake this am. Review of Systems Review of Systems: See HPI Physical Exam Physical Exam: General: A&Ox3. NAD. Cooperative. Obese. HEENT: Atraumatic, normocephalic. Pulm: Coarse breath sounds. Wheezing has improved. No increase work of breathing. No respiratory distress. Cardiac: RRR, -mrg. Radial pulses intact and symmetrical. Bilateral trace to 1+ pitting edema in LEs to knees. Abdominal: soft, non-distended Left arm: edema has resolved at this time. No erythema/warmth/tenderness. Full active and passive ROM. Skin: warm, dry, no rash Results & Data Results & Data ([facility]) Vital Signs (Past 12 Hours) Vital Signs Temp Pulse Pulse Resp BP Pulse Ox O2 Del Method 07/14/22 04:46 36.3 C L 57 L 18 116/71 92 Nasal Cannula 07/13/22 23:30 36.5 C 89 20 107/68 97 Room Air 07/13/22 21:59 92 H 07/13/22 22:36 Nasal Cannula 07/13/22 20:34 90 122/73 07/13/22 19:47 36.8 C 98 H 20 93 Nasal Cannula O2 Flow Rate 07/14/22 04:46 2 07/13/22 23:30 07/13/22 21:59 07/13/22 22:36 2 07/13/22 20:34 07/13/22 19:47 2 Laboratory Results 07/14/22 07/14/22 07/14/22 Range/Units 07:16 07:03 07:03 WBC 9.94 (4.8-10.8) K/ul RBC 4.40 (3.93-5.22) M/uL Hgb 10.1 L (12.0-16.0) g/dl Hct 35.1 (34.1-44.9) % MCV 79.8 L (80.0-100.0) fL MCH 23.0 L (25.0-34.0) pg MCHC 28.8 L (32.0-36.0) g/dL RDW Std Deviation 49.2 H (36.4-46.3) fL RDW Coeff of Balbina 17.2 H (11.5-14.5) % Plt Count 263 (130-400) K/uL MPV 11.7 (9.4-12.3) fL Absolute Nucleated RBC 0.04 H (0-0) K/uL Nucleated RBC % (auto) 0.4 % Sodium 140 (136-145) mmol/L Potassium 4.1 (3.5-5.1) mmol/L Chloride 94 L (98-107) mmol/L Carbon Dioxide 39 H (21-32) mmol/L Anion Gap 7 (3-11) BUN 53 H (6-23) mg/dl Creatinine 1.53 H (0.6-1.2) mg/dl Est Cr Clr Drug Dosing 28.2 ml/min Est GFR ( Amer) 36.1 ml/min Est GFR (Non-Af Amer) 31.1 ml/min BUN/Creatinine Ratio 34.6 H (10-20) Glucose 122 H (70-99(Fasting)) mg/dl POC Glucose 136 H (70-99) mg/dl Calcium 9.1 (8.5-10.1) mg/dl 07/13/22 07/13/22 07/13/22 Range/Units 20:13 16:59 11:57 WBC (4.8-10.8) K/ul RBC (3.93-5.22) M/uL Hgb (12.0-16.0) g/dl Hct (34.1-44.9) % MCV (80.0-100.0) fL MCH (25.0-34.0) pg MCHC (32.0-36.0) g/dL RDW Std Deviation (36.4-46.3) fL RDW Coeff of Balb[place] (11.5-14.5) % Plt Count (130-400) K/uL MPV (9.4-12.3) fL Absolute Nucleated RBC (0-0) K/uL Nucleated RBC % (auto) % Sodium (136-145) mmol/L Potassium (3.5-5.1) mmol/L Chloride (98-107) mmol/L Carbon Dioxide (21-32) mmol/L Anion Gap (3-11) BUN (6-23) mg/dl Creatinine (0.6-1.2) mg/dl Est Cr Clr Drug Dosing ml/min Est GFR ( Amer) ml/min Est GFR (Non-Af Amer) ml/min BUN/Creatinine Ratio (10-20) Glucose (70-99(Fasting)) mg/dl POC Glucose 152 H 136 H 125 H (70-99) mg/dl Calcium (8.5-10.1) mg/dl Resident Activity Tracking Resident Involvement: Resident Care Provided Care Provided: Adult [facility] Medicine
[2022-07-14 07:32] LABS: Hematocrit (blood only) 35.1 % (34.1-44.9); Hemoglobin 10.1 g/dl (12.0-16.0); Mean Corpuscular Hgb Conc 28.8 g/dL (32.0-36.0); Mean Corpuscular Volume 79.8 fL (80.0-100.0); Mean Platelet Volume 11.7 fL (9.4-12.3); Nucleated RBC # (auto) 0.04 K/uL (0-0); Nucleated RBC % (auto) 0.4 %; Platelet Count 263 K/uL (130-400); RDW Coefficient of Variation 17.2 % (11.5-14.5); RDW Standard Deviation 49.2 fL (36.4-46.3); White Blood Count 9.94 K/ul (4.8-10.8)
[2022-07-14 07:59] LABS: BUN Creatinine Ratio 34.6 (10-20); Calcium 9.1 mg/dl (8.5-10.1); Creatinine Clr Calc Pharmacy 28.2 ml/min; Est GFR (African American) 36.1 ml/min; Est GFR (Non-African American) 31.1 ml/min; Potassium 4.1 mmol/L (3.5-5.1)
[2022-07-14] MEDS: METOPROLOL SUCC 50MG EXT REL TAB PO SCH ×2 (10:03→20:23)
[2022-07-14] MEDS: MONTELUKAST SODIUM 10 MG TABLET PO SCH (10:04)
[2022-07-14] MEDS: CETIRIZINE HCL 10 MG TABLET PO SCH (10:04)
[2022-07-14] MEDS: guaiFENesin 600 MG TABCR PO SCH ×2 (10:04→20:22)
[2022-07-14] MEDS: CYANOCOBALAMIN (B-12) 500 MCG TABLET PO SCH (10:04)
[2022-07-14] MEDS: PANTOprazole 40 MG TAB PO SCH (10:04)
[2022-07-14] MEDS: FLUoxetine HCL 20 MG CAP PO SCH (10:04)
[2022-07-14] MEDS: NYSTATIN SUSP 500,000 U/5 ML UDC PO SCH ×4 (10:04→20:24)
[2022-07-14] MEDS: APIXABAN 2.5 MG TAB PO SCH ×2 (10:04→20:21)
[2022-07-14] MEDS: ATORVASTATIN 40 MG TAB PO SCH (10:04)
[2022-07-14] MEDS: INSULIN ASPART PER UNIT SC SCH ×4 (10:15→20:23)
[2022-07-14] MEDS: FLUTICASONE/VILANTEROL 200/25MCG 14 PUFFS/INHALER INH SCH (10:18)
[2022-07-14] MEDS: FUROSEMIDE 40 MG/4 ML VIAL IV SCH ×2 (10:18→18:15)
[2022-07-14] MEDS: MICONAZOLE NITRATE POWDER 43 GM EXT SCH (12:31)
--- NOTE | 2022-07-14 18:04 | Billing Data ---
Date of Service July 14, 2022 Coding Level of Care Code 81777 SUB INP/OBS CARE
[2022-07-14] MEDS ORDERED: hydrOXYzine HCl 25 MG TAB PO STA (20:26)
[2022-07-14] MEDS: ONDANSETRON INJ 2 MG/ML 2 ML VIAL IV PRN (23:01)
[2022-07-15 07:11] LABS: Hematocrit (blood only) 36.1 % (34.1-44.9); Hemoglobin 10.3 g/dl (12.0-16.0); Mean Corpuscular Hemoglobin 23.1 pg (25.0-34.0); Mean Corpuscular Hgb Conc 28.5 g/dL (32.0-36.0); Mean Corpuscular Volume 81.1 fL (80.0-100.0); Mean Platelet Volume 11.1 fL (9.4-12.3); Platelet Count 209 K/uL (130-400); RDW Coefficient of Variation 17.2 % (11.5-14.5); RDW Standard Deviation 50.1 fL (36.4-46.3); Red Blood Count 4.45 M/uL (3.93-5.22); White Blood Count 10.87 K/ul (4.8-10.8)
[2022-07-15] MEDS: NYSTATIN SUSP 500,000 U/5 ML UDC PO SCH ×4 (07:21→21:09)
[2022-07-15] MEDS: CYANOCOBALAMIN (B-12) 500 MCG TABLET PO SCH (07:21)
[2022-07-15] MEDS: FLUoxetine HCL 20 MG CAP PO SCH (07:22)
[2022-07-15] MEDS: FERROUS SULFATE 325 MG TAB PO SCH (07:22)
[2022-07-15] MEDS: MONTELUKAST SODIUM 10 MG TABLET PO SCH (07:22)
[2022-07-15] MEDS: METOPROLOL SUCC 50MG EXT REL TAB PO SCH ×2 (07:22→21:01)
[2022-07-15] MEDS: ATORVASTATIN 40 MG TAB PO SCH (07:22)
[2022-07-15] MEDS: CETIRIZINE HCL 10 MG TABLET PO SCH (07:22)
[2022-07-15] MEDS: PANTOprazole 40 MG TAB PO SCH (07:22)
[2022-07-15] MEDS: APIXABAN 2.5 MG TAB PO SCH ×2 (07:24→21:01)
[2022-07-15] MEDS: FLUTICASONE/VILANTEROL 200/25MCG 14 PUFFS/INHALER INH SCH (07:24)
[2022-07-15] MEDS: guaiFENesin 600 MG TABCR PO SCH ×2 (07:24→21:01)
[2022-07-15 07:55] LABS: BUN Creatinine Ratio 33.3 (10-20); Calcium 8.9 mg/dl (8.5-10.1); Creatinine Clr Calc Pharmacy 29.6 ml/min; Est GFR (African American) 38.8 ml/min; Est GFR (Non-African American) 33.5 ml/min; Potassium 3.7 mmol/L (3.5-5.1)
[2022-07-15] MEDS: INSULIN ASPART PER UNIT SC SCH ×4 (09:02→21:09)
[2022-07-15] MEDS: FUROSEMIDE 40 MG/4 ML VIAL IV SCH ×2 (09:27→16:24)
[2022-07-15] MEDS: MICONAZOLE NITRATE POWDER 43 GM EXT SCH (11:17)
--- NOTE | 2022-07-15 13:54 | Discharge Summary ---
Date of Service July 15, 2022 Admission HPI Per Admitting Provider Coco Sanchez is a 81yo female with PMHx significant for paroyxmal a-fib and sick sinus syndrome (s/p PPM in 2021, on Eliquis, BB and CCB), LE edema with ?chronic HFpEF (TTE in 02/28 with EF 50-55%, LA dilation and elevated RVSP 40-50), COPD (on chronic 3-4L/min O2), T2DM , CKD3b (baseline Cr 1.3), MIKE, HTN, HLD, chronic incontinence, anxiety and GERD. Patient presented to [facility] ED on 07/05 for worsening productive cough, SOB and wheezing improved by taking Duonebs 2-3x per day for last 1-2 weeks, as well as worsening LE edema, orthopnea, SCOTT, increased home O2 requirement and weight gain x several weeks. Of note patient also reports left hand/forearm swelling without erythema/tenderness or decreased ROM for last week. Patient is chronically on Lasix 40mg PO daily and had it increased to BID several weeks ago but did not tolerate increased dose. Patient saw PCP earlier in the day and was sent for admission for edema/SOB/hypoxia. Of note patient takes Eliquis for a- fib and has not missed a dose. Patient denies recent fever/chills, runny nose, congestion, dysuria, N/V, abdominal pain, diarrhea or rash. Of note patient is hard of hearing and much of today's HPI was collected with assistance of patient's friend, who is also primary nuclear fuel enrichment technician. Patient needs help with ADLs/iADLs and requires 24-hour assistance which is provided by the friend and the friend's sister. Patient's POA is [id number] (not present) In the ED patient was afebrile and hemodynamically stable on 4-5L/min nasal cannula. Labs ordered and pending. EKG with a-fib at 67bpm and frequent AV dual- paced complexes. CXR with cardiomegaly (chronic) but no acute chest disease. COVID-19 negative. Admission Exam Per Admitting Provider General: A&Ox3. NAD. Cooperative. Obese. HEENT: Atraumatic, normocephalic. Pulm: CTAB A&P. -wheezes, -rales, -rhonchi. Symmetrical chest rise. No increase work of breathing. No respiratory distress. Cardiac: RRR, -mrg. Radial pulses intact and symmetrical. Bilateral 2+ pitting edema in LEs to knees. Abdominal: soft, non-tender, non-distended, BS x 4 Left arm: non-pitting edema throughout left dorsal hand and trace edema of forearm. No erythema/warmth/tenderness. Full active and passive ROM. Skin: warm, dry, no rash Principal Diagnosis HFrEF fluid overloaded Discharge Exam General: A&Ox3. NAD. Cooperative. Obese. HEENT: Atraumatic, normocephalic. Pulm: CTABL. No increase work of breathing. No respiratory distress. Cardiac: RRR, -mrg. Radial pulses intact and symmetrical. Bilateral trace edema in LEs. Abdominal: soft, non-distended Left arm: edema has resolved at this time. No erythema/warmth/tenderness. Full active and passive ROM. Skin: warm, dry, no rash Discharge Data Allergies Allergy/AdvReac Type Severity Reaction Status Date / Time Penicillins AdvReac Intermediate GI SYMPTOMS Verified 07/05/22 21:01 Consultations 07/05/22 21:53 ED Decision to Admit Stat 07/06/22 18:58 Consult Cardiology Routine Procedures Performed Operation Date: 07/08/22 12:00 Actual Procedures p Right Heart Cath Only - Reza Mcclendon MD s Cineradiography w/Routine Exam - Reza Mcclendon MD Ordered Studies Chest X-Ray 07/05/22 16:21 XR chest 2V PA/lateral CLINICAL HISTORY: Chest pain, nonspecific TECHNIQUE: 2 views of the chest were obtained. Comparison: Comparison is made to chest radiograph 03/08/2022 FINDINGS: Dual lead pacemaker is seen. Cardiomegaly is noted. The aortic arch is calcified. The lungs are clear. No evidence of pleural effusion or pneumothorax. IMPRESSION: No acute chest disease. Cardiomegaly is noted. ACT 112: Negative or not required by law. Electronically signed by: Ernesto Uribe M.D. 07/05/2022 8:51 PM Extremity Venous Study 07/05/22 22:12 US venous doppler UE LT CLINICAL HISTORY: LUE swelling PROCEDURE: Left upper extremity real-time compression venous ultrasound with Duplex and Color Doppler imaging. Comparison: None available at the time of this dictation. FINDINGS: Utilizing real-time ultrasonic imaging multiple real time high-resolution ultrasonic images of the deep venous system were performed from the forearm through the subclavian vein including evaluation of the jugular vein. Compression real time ultrasonic imaging was performed in addition to color Doppler imaging and duplex Doppler ultrasound with velocity spectral profile analysis. There is normal compressibility of the deep venous system from the forearm through the subclavian vein. Normal vascular flow is currently identified. Soft tissue edema is seen in the lower extremity. Impression: No evidence of deep venous thrombus. ACT 112: Negative or not required by law. Electronically signed by: Ernesto Uribe M.D. 07/06/2022 7:05 AM 07/15/22 07/15/22 07/15/22 Range/Units 11:24 07:38 06:41 WBC (4.8-10.8) K/ul RBC (3.93-5.22) M/uL Hgb (12.0-16.0) g/dl Hct (34.1-44.9) % MCV (80.0-100.0) fL MCH (25.0-34.0) pg MCHC (32.0-36.0) g/dL RDW Std Deviation (36.4-46.3) fL RDW Coeff of [place] (11.5-14.5) % Plt Count (130-400) K/uL MPV (9.4-12.3) fL Sodium 139 (136-145) mmol/L Potassium 3.7 (3.5-5.1) mmol/L Chloride 91 L (98-107) mmol/L Carbon Dioxide 41 H* (21-32) mmol/L Anion Gap 7 (3-11) BUN 48 H (6-23) mg/dl Creatinine 1.44 H (0.6-1.2) mg/dl Est Cr Clr Drug Dosing 29.6 ml/min Est GFR ( Amer) 38.8 ml/min Est GFR (Non-Af Amer) 33.5 ml/min BUN/Creatinine Ratio 33.3 H (10-20) Glucose 113 H (70-99(Fasting)) mg/dl POC Glucose 132 H 117 H (70-99) mg/dl Calcium 8.9 (8.5-10.1) mg/dl 07/15/22 07/14/22 07/14/22 Range/Units 06:41 19:48 16:29 WBC 10.87 H (4.8-10.8) K/ul RBC 4.45 (3.93-5.22) M/uL Hgb 10.3 L (12.0-16.0) g/dl Hct 36.1 (34.1-44.9) % MCV 81.1 (80.0-100.0) fL MCH 23.1 L (25.0-34.0) pg MCHC 28.5 L (32.0-36.0) g/dL RDW Std Deviation 50.1 H (36.4-46.3) fL RDW Coeff of Balb[place] 17.2 H (11.5-14.5) % Plt Count 209 (130-400) K/uL MPV 11.1 (9.4-12.3) fL Sodium (136-145) mmol/L Potassium (3.5-5.1) mmol/L Chloride (98-107) mmol/L Carbon Dioxide (21-32) mmol/L Anion Gap (3-11) BUN (6-23) mg/dl Creatinine (0.6-1.2) mg/dl Est Cr Clr Drug Dosing ml/min Est GFR ( Amer) ml/min Est GFR (Non-Af Amer) ml/min BUN/Creatinine Ratio (10-20) Glucose (70-99(Fasting)) mg/dl POC Glucose 117 H 96 (70-99) mg/dl Calcium (8.5-10.1) mg/dl 07/05/22 22:12 US venous doppler UE LT Stat 07/08/22 11:32 CL Cath Imgs for PACS use only Urgent Hospital Course (1) Acute on chronic respiratory failure with hypoxia: (2) Acute kidney injury superimposed on CKD: (3) Left arm swelling: (4) Leg edema: (5) Paroxysmal atrial fibrillation: (6) T2DM (type 2 diabetes mellitus): (7) Anemia: (8) Hypertension: (9) Hyperlipidemia: Gonzalez Sanchez is a 81 y/o female with PMHx significant for paroxysmal a-fib and sick sinus syndrome (s/p PPM in 2021, on Eliquis, BB and CCB), LE edema with chronic HFpEF (TTE in 02/28 with EF 50-55%, LA dilation and elevated RVSP 40-50), COPD (on chronic 3-4L/min O2), T2DM, CKD3b (baseline Cr 1.3), MIKE, HTN, HLD, chronic incontinence, anxiety and GERD admitted for COPD exacerbation and progression from HFpEF to HFrEF (EF 25-30%) confirmed on cardiac cath 07/08 with fluid overload who is clinically improving and approaching dry weight. #HFrEF w/edema requiring aggressive diuresis -likely at dry weight Known HFpEF presented with worsening LE edema, LUE edema, orthopnea, hypoxia/SOB x several weeks non-responsive to increased PO Lasix. Repeat TTE shows significant worsening of EF. Patient now carries diagnosis of HFrEF (EF 25-30%) confirmed on cardiac cath 07/08. Could benefit from afterload reduction - entresto/MILAN/ARB. Could be reasonable to start one of these medications and monitor Cr as [facility] this would not be difficult to do. If patient/family not interested in this line of treatment could consider Imdur/hydralazine. Had successful and productive diuresis with Lasix 40 mg BID17 with chlorothiazide 500 IV 30 minutes prior x3 doses. Patient appears to be close to dry weight - will hold off on chlorothiazide at this point. Recommend Lasix 40 mg PO BID for the next 3-7 days with reassessment of fluid status - daily weights, Is and Os, and BMP to monitor Cr. Once euvolemic can return to home dose of 40 mg Lasix QD. Weight at discharge (dry): 80.2 kg #COPD Exacerbation Known COPD, 20 pack year smoking history, presented with wheezing, SOB, worsening cough. COVID-19 negative and CXR without evidence for PNA. BioFire negative. Treated with steroids and azithromycin x5 days, duonebs. Patient on 3- 4L NC at baseline. Has been satting well on 2 L NC O2 requirement may actually be lower when euvolemic. Would recommend continued monitoring. Patient did develop thrush likely in the setting of duoneb use. Treated with nystatin swish and swallow - improved, continue for another 4 days after discharge. Continue home inahlers, duonebs as needed. #CHESTER superimposed on CKD -improving Baseline is not apparent ranges from 1.3 - 4. Creatinine 2.63 improved to 1.53. Continue diuresis as tolerated. Patient is fluid overloaded in the extravascular space and dry in the intravascular space. Continue to monitor. Avoid nephrotoxins. #Hypovolemic hyponatremia in the setting of fluid overload Continue to monitor. #Hypokalemia 2/2 diuresis Repleted K as needed during hospital stay. Continue to monitor with AM BMP #Paroxysmal a. fib s/p permanent pacemaker earlier this year. Currently rate-controlled. EKG with a-fib at 67 bpm and frequent AV dual-paced complexes. CXR with cardiomegaly (chronic) but no acute chest disease. Can resume home dosing of Eliquis on discharge as Cr ~ 1.5. Would recommend decreasing dose to 2.5 if Cr climbs again. Continue home metoprolol/diltiazem #TIIDM A1c 6.6. Hold home meds and utilize SSI while hospitalized. Resume home meds on discharge. #Anemia Chronic iron deficiency anemia. Continue home ferrous sulfate. #HTN Normotensive while here. Continue home BB/CCB as stated above. #HLD Continue home statin. FEN/GI: heart-healthy/DM2/Na-restricted diet DVT Prophylaxis: Eliquis Code Status: full code Disposition: med/tele, PT/OT ordered - d/c to [facility], awaiting transfer Family Update: discussed condition with granddaughter at bedside 07/11/22, attempted to call 07/14/22 Total Time Total Time Spent Total Time Spent (In Minutes): See attending attestation Discharge Plan Discharge Items Patient Disposition: Transfer Inpatient Rehab Fac Reason For Visit: COPD EXACERBATION, ?ACUTE CHF Discharge Diagnosis: HFrEF with fluid overload + COPD exacerbation Activity: Per Instructions section Non-emergency contact: Primary Care Provider and Head Nurse Call non-emergency contact if: you have any medication questions and your temperature is above 101.5 Follow-up/Referrals: Reza Mcclendon MD [Physician] - Irina Vivar MD [Primary Care Provider] - Diet: Carb Consistent or DM2 and Low Sodium (2gm) Fluids: 1500ml (6 cups) Addtl Attending Provider Instructions: Coco is 81 y/o female with hx of pAFib/sick sinus syndrome (s/p PPM in 2021, on Eliquis, BB and CCB), LE edema w/ chronic HFpEF (TTE in 02/28 with EF 50-55%, LA dilation and elevated RVSP 40-50), COPD (on chronic 3-4L/min O2), T2DM, CKD3b (baseline Cr 1.3), MIKE, HTN, HLD, chronic incontinence, anxiety and GERD admitted for COPD exacerbation and progression from HFpEF to HFrEF (EF 25-30%) confirmed on cardiac cath 07/08. Patient was fluid overloaded on presentation and is likely now at dry weight. Dry Weight: 80.2 kg. HFrEF w/edema requiring aggressive diuresis-likely at dry weight at discharge Known HFpEF presented with worsening LE edema, LUE edema, orthopnea, hypoxia/SOB x several weeks non-responsive to increased PO Lasix. Repeat TTE shows significant worsening of EF. Patient now carries diagnosis of HFrEF (EF 25-30%) confirmed on cardiac cath 07/08. Could benefit from afterload reduction - Entresto started 07/16/22 - Recommend f/u BMP 07/18 to follow kidney function Had successful and productive diuresis with Lasix 40 mg BID17 with chlorothiazide 500 IV 30 minutes prior x3 doses. Patient appears to be close to dry weight - will hold off on chlorothiazide at this point. Recommend Lasix 40 mg PO BID for the next 3-7 days with reassessment of fluid status - daily weights, Is and Os, and BMP to monitor Cr. Once euvolemic can return to home dose of 40 mg Lasix QD. - Continue Lasix 40 mg PO BID for the next 3-7 days - If patient remains euvolemic, would recommend return to home dose of Lasix 40 mg PO daily COPD Exacerbation Known COPD, 20 pack year smoking history, presented with wheezing, SOB, worsening cough. COVID-19 negative and CXR without evidence for PNA. BioFire negative. Treated with steroids and azithromycin x5 days, duonebs. Patient on 3- 4L NC at baseline. Has been satting well on 2 L NC O2 requirement may actually be lower when euvolemic. Would recommend continued monitoring. Patient did develop thrush likely in the setting ofduoneb use. Treated with nystatin swish and swallow - improved, continue after discharge. Continue home inhalers, duonebs as needed. - Continue 2 L NC, patient oxygenating well on 2 L inpatient (patient's previous baseline 3-4 L, likely d/t hypervolemia) - Continue Nystatin swish/swallow for oral thrush x 3 days - Continue inhalers and Duoneb PRN CHESTER superimposed on CKD-improving Baseline is not apparent ranges from 1.3 - 4. Creatinine 2.63 improved to 1.44. Continue diuresis as tolerated. Patient is fluid overloaded in the extravascular space and dry in the intravascular space. Continue to monitor. Avoid nephrotoxins. - Cr 1.51, overall improvement from presentation - Continue to avoid nephrotoxins - Recheck [facility] Monday Electrolyte Abnormalities Continue to monitor. Hyponatremia 2/2 to fluid overload. Hypokalemia 2/2 diuresis. - Resolved, follow with [facility] Monday Paroxysmal a. fib s/p permanent pacemaker earlier this year. Currently rate-controlled. EKG with a-fib at 67 bpm and frequent AV dual-paced complexes. CXR with cardiomegaly (chronic) but no acute chest disease. Can resume home dosing of Eliquis on discharge as Cr ~ 1.5. Would recommend decreasing dose to 2.5 if Cr climbs again. Continue home metoprolol/diltiazem. - Resume patient's Eliquis, Cr 15 1.51 - Decrease dose to 2.5 from 5 if Cr elevates in future TIIDM A1c 6.6. Hold home meds and utilize SSI while hospitalized. Resume home meds on discharge. Anemia Chronic iron deficiency anemia. Continue home ferrous sulfate. HTN Normotensive while here. Continue home BB/CCB as stated above. HLD Continue home statin. FEN/GI: heart-healthy/DM2/Na-restricted diet DVT Prophylaxis: Eliquis Code Status: Full code Disposition: [facility] Pending Studies at Discharge: No Stand-Alone Forms: My [facility] Skilled Items Patient informed of condition?: Yes DNR: No Discharge Level of Care: Skilled Communicable Disease: No Discharge Prognosis: Stable Lines: None Urinary Catheter: No Medications and DC Order Prescriptions: Continued montelukast 10 mg tablet 10 mg PO DAILY Qty: 90 1RF empagliflozin 10 mg tablet 10 mg PO DAILY Qty: 90 3RF Eliquis 5 mg tablet 5 mg PO BID Qty: 180 3RF atorvastatin 40 mg tablet 40 mg PO DAILY Qty: 90 3RF diltiazem HCl 240 mg capsule,extended release 24hr 240 mg PO QAM Qty: 90 3RF fluoxetine 20 mg capsule 20 mg PO DAILY Qty: 90 3RF fluticasone furoate-vilanterol 200-25 mcg/dose blister with device 1 inh INHALATION DAILY Qty: 90 3RF furosemide [Lasix] 40 mg tablet 40 mg PO DAILY Qty: 90 3RF metformin 500 mg tablet 500 mg PO BID Qty: 180 3RF omeprazole 20 mg capsule,delayed release(DR/EC) 20 mg PO DAILY Qty: 90 3RF metoprolol succinate 100 mg tablet extended release 24 hr 100 mg PO Q12H Qty: 180 3RF lorazepam 0.5 mg tablet 0.5 mg PO DAILY PRN (Reason: anxiety) Qty: 30 0RF cetirizine 10 mg tablet 10 mg PO DAILY cyanocobalamin (vitamin B-12) 500 mcg Tablet 1,000 mcg PO QAM Qty: 30 0RF ferrous sulfate 325 mg (65 mg iron) tablet,delayed release (DR/EC) 325 mg PO [id number] Rx Instructions: TAKES MON, WED, & FRI @ 0900 ketoconazole 2 % cream 1 applic topical BID PRN (Reason: RASH UNDER BREASTS) Rx Instructions: STARTED 06/13/22 apply under breasts twice daily for 2 weeks Discharge Orders: Discharge Order (Routine); Ordered 07/17/22 Ordered By: Pascual Barger Admission Data Admit Date/Time: 07/05/22 22:28 Attending Provider: Sudheer Valentino Admit Provider: Gene Figueroa Primary Care Provider: Irina Vivar Other Providers: Steven Adamson ; Reza Mcclendon ; Omkar Lin ; [facility] Other Interventions: Discharge Summary Assessment (RN) Last Done: 07/17/22 10:11 Supervising Physician Co-Signing Physician Notes see discharge summary by dr barger - this was done on 07/15 but dc delayed, document unable to be cancelled. Resident Activity Tracking Resident Involvement: Resident Care Provided Care Provided: Adult Hospital Medicine
--- NOTE | 2022-07-15 14:13 | Hospitalist Progress Note ---
Date of Service July 15, 2022 Assessment & Plan (1) Acute on chronic respiratory failure with hypoxia: (2) Acute kidney injury superimposed on CKD: (3) Left arm swelling: (4) Leg edema: (5) Paroxysmal atrial fibrillation: (6) T2DM (type 2 diabetes mellitus): (7) Anemia: (8) Hypertension: (9) Hyperlipidemia: Plan Coco Sanchez is a 81 y/o female with PMHx significant for paroxysmal a-fib and sick sinus syndrome (s/p PPM in 2021, on Eliquis, BB and CCB), LE edema with chronic HFpEF (TTE in 02/28 with EF 50-55%, LA dilation and elevated RVSP 40-50), COPD (on chronic 3-4L/min O2), T2DM, CKD3b (baseline Cr 1.3), MIKE, HTN, HLD, chronic incontinence, anxiety and GERD admitted for COPD exacerbation and progression from HFpEF to HFrEF (EF 25-30%) confirmed on cardiac cath 07/08 with fluid overload who is clinically improving and likely at dry weight. #HFrEF w/edema requiring aggressive diuresis -likely at dry weight Known HFpEF presented with worsening LE edema, LUE edema, orthopnea, hypoxia/SOB x several weeks non-responsive to increased PO Lasix. Repeat TTE shows significant worsening of EF. Patient now carries diagnosis of HFrEF (EF 25-30%) confirmed on cardiac cath 07/08. Could benefit from afterload reduction - entresto/MILAN/ARB. Could be reasonable to start one of these medications and monitor Cr as [facility] is [facility] this would not be difficult to do. If patient/family not interested in this line of treatment could consider Imdur/hydralazine. Would recommend discussion of treatment options. Had successful and productive diuresis with Lasix 40 mg BID17 with chlorothiazide 500 IV 30 minutes prior x3 doses. Patient appears to be close to dry weight - will hold off on chlorothiazide at this point. Recommend Lasix 40 mg PO BID for the next 3-7 days with reassessment of fluid status - daily weights, Is and Os, and BMP to monitor Cr. Once euvolemic can return to home dose of 40 mg Lasix QD. Dry Weight: 80.2 kg #COPD Exacerbation Known COPD, 20 pack year smoking history, presented with wheezing, SOB, worsening cough. COVID-19 negative and CXR without evidence for PNA. BioFire negative. Treated with steroids and azithromycin x5 days, duonebs. Patient on 3- 4L NC at baseline. Has been satting well on 2 L NC O2 requirement may actually be lower when euvolemic. Would recommend continued monitoring. Patient did develop thrush likely in the setting ofduoneb use. Treated with nystatin swish and swallow - improved, continue for another 4 days after discharge. Continue home inhalers, duonebs as needed. #CHESTER superimposed on CKD -improving Baseline is not apparent ranges from 1.3 - 4. Creatinine 2.63 improved to 1.44. Continue diuresis as tolerated. Patient is fluid overloaded in the extravascular space and dry in the intravascular space. Continue to monitor. Avoid nephrotoxins. #Hypovolemic hyponatremia in the setting of fluid overload Continue to monitor. #Hypokalemia 2/2 diuresis Repleted K as needed during hospital stay. Continue to monitor with AM BMP #Paroxysmal a. fib s/p permanent pacemaker earlier this year. Currently rate-controlled. EKG with a-fib at 67 bpm and frequent AV dual-paced complexes. CXR with cardiomegaly (chronic) but no acute chest disease. Can resume home dosing of Eliquis on discharge as Cr ~ 1.5. Would recommend decreasing dose to 2.5 if Cr climbs again. Continue home metoprolol/diltiazem #TIIDM A1c 6.6. Hold home meds and utilize SSI while hospitalized. Resume home meds on discharge. #Anemia Chronic iron deficiency anemia. Continue home ferrous sulfate. #HTN Normotensive while here. Continue home BB/CCB as stated above. #HLD Continue home statin. FEN/GI: heart-healthy/DM2/Na-restricted diet DVT Prophylaxis: Eliquis Code Status: full code Disposition: med/tele, PT/OT ordered - [facility], awaiting transport Family Update: discussed condition with granddaughter at bedside 07/11/22, attempted to call 07/14/22 Admission and Anticipated Discharge Date Admission Date: July 05, 2022 Supervising Physician Co-Signing Physician Notes I personally examined the patient and verified all choi points of history and exam, discussed case, and agree with decision making with Dr Hill. When I saw her, plan was for rehab. Unfortunately due to lack of transportation discharge was delayed. No new complaints. Vitals noted, in general she is awake and alert pleasant no distress. HEENT normocephalic atraumatic mucous membranes moist. Breathing unlabored no accessory muscle use good effort. Skin shows no rashes no pallor or icterus. Acute on chronic hypoxic respiratory failure in the setting of COPD w/ exacerbation - baseline O2 3-4L. Continue duonebs PRN. Completed course of azithromycin, as well as a course of pred x 5 days. This appears to essentially resolved HFrEF w/ acute excaerbation - Echo as noted. Improvingcontinue diuretics. S he is reaching a point where afterload reduction would likely be beneficialparticularly if she is getting closer to being euvolemic and her creatinine is improving, something such as Entresto is reasonable to considergiven her elevated creatinine, certainly her risk/benefit balance is more narrowwill try to discuss with her as best as possible (and probably her granddaughter given the hearing loss creating a fairly significant barrier to communication)if she would like to proceed in that direction, given that she will be in the hospital and then rehab, we would be on to follow creatinine c losely and ensure no elevations; at the same time if she would rather not head in that direction, probably could get a degree of benefit from hydralazine/Imdur. continue current care for now. Is stable for rehab CHESTER on CKDIII - Monitor BMP periodically, stable on current diuresis for rehab Subjective Patient is hard of hearing. She is doing well today. Swelling much improved. Physical Exam Physical Exam: General: A&Ox3. NAD. Cooperative. Obese. HEENT: Atraumatic, normocephalic. Pulm: Coarse breath sounds. Wheezing has improved. No increase work of breathing. No respiratory distress. Cardiac: RRR, -mrg. Radial pulses intact and symmetrical. Bilateral trace to edema in LEs Abdominal: soft, non-distended Left arm: edema has resolved at this time. No erythema/warmth/tenderness. Full active and passive ROM. Skin: warm, dry, no rash Results & Data Results & Data ([facility]) Vital Signs (Past 12 Hours) Vital Signs Temp Pulse Pulse Resp BP BP Pulse Ox 07/15/22 11:39 36.3 C L 88 18 130/71 98 07/15/22 09:38 07/15/22 07:22 36.5 C 60 18 116/67 97 07/15/22 07:12 86 07/15/22 04:09 36.3 C L 83 20 130/80 93 O2 Del Method O2 Flow Rate 07/15/22 11:39 Nasal Cannula 2 07/15/22 09:38 Nasal Cannula 2 07/15/22 07:22 Nasal Cannula 2 07/15/22 07:12 07/15/22 04:09 Nasal Cannula 2 Laboratory Results 07/15/22 07/15/22 07/15/22 Range/Units 11:24 07:38 06:41 WBC (4.8-10.8) K/ul RBC (3.93-5.22) M/uL Hgb (12.0-16.0) g/dl Hct (34.1-44.9) % MCV (80.0-100.0) fL MCH (25.0-34.0) pg MCHC (32.0-36.0) g/dL RDW Std Deviation (36.4-46.3) fL RDW Coeff of [place] (11.5-14.5) % Plt Count (130-400) K/uL MPV (9.4-12.3) fL Sodium 139 (136-145) mmol/L Potassium 3.7 (3.5-5.1) mmol/L Chloride 91 L (98-107) mmol/L Carbon Dioxide 41 H* (21-32) mmol/L Anion Gap 7 (3-11) BUN 48 H (6-23) mg/dl Creatinine 1.44 H (0.6-1.2) mg/dl Est Cr Clr Drug Dosing 29.6 ml/min Est GFR ( Amer) 38.8 ml/min Est GFR (Non-Af Amer) 33.5 ml/min BUN/Creatinine Ratio 33.3 H (10-20) Glucose 113 H (70-99(Fasting)) mg/dl POC Glucose 132 H 117 H (70-99) mg/dl Calcium 8.9 (8.5-10.1) mg/dl 07/15/22 07/14/22 07/14/22 Range/Units 06:41 19:48 16:29 WBC 10.87 H (4.8-10.8) K/ul RBC 4.45 (3.93-5.22) M/uL Hgb 10.3 L (12.0-16.0) g/dl Hct 36.1 (34.1-44.9) % MCV 81.1 (80.0-100.0) fL MCH 23.1 L (25.0-34.0) pg MCHC 28.5 L (32.0-36.0) g/dL RDW Std Deviation 50.1 H (36.4-46.3) fL RDW Coeff of [place] 17.2 H (11.5-14.5) % Plt Count 209 (130-400) K/uL MPV 11.1 (9.4-12.3) fL Sodium (136-145) mmol/L Potassium (3.5-5.1) mmol/L Chloride (98-107) mmol/L Carbon Dioxide (21-32) mmol/L Anion Gap (3-11) BUN (6-23) mg/dl Creatinine (0.6-1.2) mg/dl Est Cr Clr Drug Dosing ml/min Est GFR ( Amer) ml/min Est GFR (Non-Af Amer) ml/min BUN/Creatinine Ratio (10-20) Glucose (70-99(Fasting)) mg/dl POC Glucose 117 H 96 (70-99) mg/dl Calcium (8.5-10.1) mg/dl Resident Activity Tracking Resident Involvement: Resident Care Provided Care Provided: Adult Hospital Medicine
--- NOTE | 2022-07-15 16:11 | Billing Data ---
Date of Service July 15, 2022 Coding Level of Care Code 84070 SUB INP/OBS CARE
--- NOTE | 2022-07-16 07:44 | Hospitalist Progress Note ---
Date of Service July 16, 2022 Assessment & Plan (1) Acute on chronic respiratory failure with hypoxia: (2) Acute kidney injury superimposed on CKD: (3) Left arm swelling: (4) Leg edema: (5) Paroxysmal atrial fibrillation: (6) T2DM (type 2 diabetes mellitus): (7) Anemia: (8) Hypertension: (9) Hyperlipidemia: Plan Coco Sanchez is a 81 y/o female with PMHx significant for paroxysmal a-fib and sick sinus syndrome (s/p PPM in 2021, on Eliquis, BB and CCB), LE edema with chronic HFpEF (TTE in 02/28 with EF 50-55%, LA dilation and elevated RVSP 40-50), COPD (on chronic 3-4L/min O2), T2DM, CKD3b (baseline Cr 1.3), MIKE, HTN, HLD, chronic incontinence, anxiety and GERD admitted for COPD exacerbation and progression from HFpEF to HFrEF (EF 25-30%) confirmed on cardiac cath 07/08 with fluid overload who is clinically improving and likely at dry weight. #HFrEF w/edema requiring aggressive diuresis -likely at dry weight Known HFpEF presented with worsening LE edema, LUE edema, orthopnea, hypoxia/SOB x several weeks non-responsive to increased PO Lasix. Repeat TTE shows significant worsening of EF. Patient now carries diagnosis of HFrEF (EF 25-30%) confirmed on cardiac cath 07/08. Could benefit from afterload reduction - entresto/MILAN/ARB. Could be reasonable to start one of these medications and monitor Cr as [facility] this would not be difficult to do. If patient/family not interested in this line of treatment could consider Imdur/hydralazine. Would recommend discussion of treatment options. Had successful and productive diuresis with Lasix 40 mg BID17 with chlorothiazide 500 IV 30 minutes prior x3 doses. Patient appears to be close to dry weight - will hold off on chlorothiazide at this point. Recommend Lasix 40 mg PO BID for the next 3-7 days with reassessment of fluid status - daily weights, Is and Os, and BMP to monitor Cr. Once euvolemic can return to home dose of 40 mg Lasix QD. Dry Weight: 80.2 kg #COPD Exacerbation Known COPD, 20 pack year smoking history, presented with wheezing, SOB, worsening cough. COVID-19 negative and CXR without evidence for PNA. BioFire negative. Treated with steroids and azithromycin x5 days, duonebs. Patient on 3- 4L NC at baseline. Has been satting well on 2 L NC O2 requirement may actually be lower when euvolemic. Would recommend continued monitoring. Patient did develop thrush likely in the setting ofduoneb use. Treated with nystatin swish and swallow - improved, continue for another 4 days after discharge. Continue home inhalers, duonebs as needed. #CHESTER superimposed on CKD -improving Baseline is not apparent ranges from 1.3 - 4. Creatinine 2.63 improved to 1.44. Continue diuresis as tolerated. Patient is fluid overloaded in the extravascular space and dry in the intravascular space. Continue to monitor. Avoid nephrotoxins. #Hypovolemic hyponatremia in the setting of fluid overload Continue to monitor. #Hypokalemia 2/2 diuresis Repleted K as needed during hospital stay. Continue to monitor with AM BMP #Paroxysmal a. fib s/p permanent pacemaker earlier this year. Currently rate-controlled. EKG with a-fib at 67 bpm and frequent AV dual-paced complexes. CXR with cardiomegaly (chronic) but no acute chest disease. Can resume home dosing of Eliquis on discharge as Cr ~ 1.5. Would recommend decreasing dose to 2.5 if Cr climbs again. Continue home metoprolol/diltiazem #TIIDM A1c 6.6. Hold home meds and utilize SSI while hospitalized. Resume home meds on discharge. #Anemia Chronic iron deficiency anemia. Continue home ferrous sulfate. #HTN Normotensive while here. Continue home BB/CCB as stated above. #HLD Continue home statin. FEN/GI: heart-healthy/DM2/Na-restricted diet DVT Prophylaxis: Eliquis Code Status: full code Disposition: med/tele, PT/OT ordered - [facility], [facility] transport Family Update: discussed condition with granddaughter at bedside 07/11/22, attempted to call 07/14/22 Admission and Anticipated Discharge Date Admission Date: July 05, 2022 Subjective 07/15: Patient is hard of hearing. She is doing well today. Swelling much improved. Review of Systems Review of Systems: As per HPI Physical Exam Physical Exam: General: A&Ox3. NAD. Cooperative. Obese. HEENT: Atraumatic, normocephalic. Pulm: Coarse breath sounds. Wheezing has improved. No increase work of breathing. No respiratory distress. Cardiac: RRR, -mrg. Radial pulses intact and symmetrical. Bilateral trace to edema in LEs Abdominal: soft, non-distended Left arm: edema has resolved at this time. No erythema/warmth/tenderness. Full active and passive ROM. Skin: warm, dry, no rash Results & Data Results & Data ([facility]) Vital Signs (Past 12 Hours) Vital Signs Temp Pulse Pulse Resp BP Pulse Ox O2 Del Method 07/16/22 07:18 91 H 07/16/22 02:35 36.5 C 92 H 18 118/71 96 Nasal Cannula 07/15/22 23:05 87 07/15/22 23:24 36.6 C 89 18 133/81 97 Nasal Cannula 07/15/22 19:51 36.6 C 93 H 22 115/59 L 96 Nasal Cannula O2 Flow Rate 07/16/22 07:18 07/16/22 02:35 2 07/15/22 23:05 07/15/22 23:24 2 07/15/22 19:51 3 Resident Activity Tracking Resident Involvement: Resident Care Provided Care Provided: Adult Hospital Medicine
[2022-07-16] MEDS: APIXABAN 2.5 MG TAB PO SCH ×2 (09:24→21:28)
[2022-07-16] MEDS: METOPROLOL SUCC 50MG EXT REL TAB PO SCH ×2 (09:24→21:28)
[2022-07-16] MEDS: PANTOprazole 40 MG TAB PO SCH (09:24)
[2022-07-16] MEDS: CETIRIZINE HCL 10 MG TABLET PO SCH (09:25)
[2022-07-16] MEDS: FLUoxetine HCL 20 MG CAP PO SCH (09:25)
[2022-07-16] MEDS: MONTELUKAST SODIUM 10 MG TABLET PO SCH (09:25)
[2022-07-16] MEDS: FLUTICASONE/VILANTEROL 200/25MCG 14 PUFFS/INHALER INH SCH (09:25)
[2022-07-16] MEDS: ATORVASTATIN 40 MG TAB PO SCH (09:25)
[2022-07-16] MEDS: NYSTATIN SUSP 500,000 U/5 ML UDC PO SCH ×4 (09:26→21:29)
[2022-07-16] MEDS: guaiFENesin 600 MG TABCR PO SCH ×2 (09:26→21:30)
[2022-07-16] MEDS: CYANOCOBALAMIN (B-12) 500 MCG TABLET PO SCH (09:26)
[2022-07-16 09:41] LABS: Hematocrit (blood only) 35.6 % (34.1-44.9); Hemoglobin 10.1 g/dl (12.0-16.0); Mean Corpuscular Hemoglobin 23.2 pg (25.0-34.0); Mean Corpuscular Hgb Conc 28.4 g/dL (32.0-36.0); Mean Corpuscular Volume 81.7 fL (80.0-100.0); Mean Platelet Volume 11.8 fL (9.4-12.3); Platelet Count 203 K/uL (130-400); RDW Coefficient of Variation 17.2 % (11.5-14.5); RDW Standard Deviation 50.1 fL (36.4-46.3); Red Blood Count 4.36 M/uL (3.93-5.22); White Blood Count 9.22 K/ul (4.8-10.8)
[2022-07-16] MEDS: FUROSEMIDE 40 MG/4 ML VIAL IV SCH ×2 (09:41→15:35)
[2022-07-16] MEDS: INSULIN ASPART PER UNIT SC SCH ×4 (10:03→21:27)
[2022-07-16 10:06] LABS: BUN Creatinine Ratio 29.1 (10-20); Calcium 9.3 mg/dl (8.5-10.1); Creatinine Clr Calc Pharmacy 27.9 ml/min; Est GFR (African American) 36.7 ml/min; Est GFR (Non-African American) 31.6 ml/min; Potassium 3.8 mmol/L (3.5-5.1)
[2022-07-16] MEDS: MICONAZOLE NITRATE POWDER 43 GM EXT SCH (12:27)
[2022-07-16] MEDS: VALSARTAN/SACUBITRIL 26/24MG TAB PO SCH ×2 (12:58→21:29)
--- NOTE | 2022-07-16 13:11 | Discharge Summary ---
Date of Service July 16, 2022 Admission HPI Per Admitting Provider Coco Sanchez is a 81yo female with PMHx significant for paroyxmal a-fib and sick sinus syndrome (s/p PPM in 2021, on Eliquis, BB and CCB), LE edema with ?chronic HFpEF (TTE in 02/28 with EF 50-55%, LA dilation and elevated RVSP 40-50), COPD (on chronic 3-4L/min O2), T2DM , CKD3b (baseline Cr 1.3), MIKE, HTN, HLD, chronic incontinence, anxiety and GERD. Patient presented to [facility] ED on 07/05 for worsening productive cough, SOB and wheezing improved by taking Duonebs 2-3x per day for last 1-2 weeks, as well as worsening LE edema, orthopnea, SCOTT, increased home O2 requirement and weight gain x several weeks. Of note patient also reports left hand/forearm swelling without erythema/tenderness or decreased ROM for last week. Patient is chronically on Lasix 40mg PO daily and had it increased to BID several weeks ago but did not tolerate increased dose. Patient saw PCP earlier in the day and was sent for admission for edema/SOB/hypoxia. Of note patient takes Eliquis for a- fib and has not missed a dose. Patient denies recent fever/chills, runny nose, congestion, dysuria, N/V, abdominal pain, diarrhea or rash. Of note patient is hard of hearing and much of today's HPI was collected with assistance of patient's friend, who is also primary contracting analyst. Patient needs help with ADLs/iADLs and requires 24-hour assistance which is provided by the friend and the friend's sister. Patient's POA is [id number] (not present) In the ED patient was afebrile and hemodynamically stable on 4-5L/min nasal cannula. Labs ordered and pending. EKG with a-fib at 67bpm and frequent AV dual- paced complexes. CXR with cardiomegaly (chronic) but no acute chest disease. COVID-19 negative. Admission Exam Per Admitting Provider General: A&Ox3. NAD. Cooperative. Obese. HEENT: Atraumatic, normocephalic. Pulm: CTAB A&P. -wheezes, -rales, -rhonchi. Symmetrical chest rise. No increase work of breathing. No respiratory distress. Cardiac: RRR, -mrg. Radial pulses intact and symmetrical. Bilateral 2+ pitting edema in LEs to knees. Abdominal: soft, non-tender, non-distended, BS x 4 Left arm: non-pitting edema throughout left dorsal hand and trace edema of forearm. No erythema/warmth/tenderness. Full active and passive ROM. Skin: warm, dry, no rash Principal Diagnosis HFrEF, Fluid Overload, COPD Exacerbation Discharge Exam Gen: NAD, alert, interactive. HEENT: Supple, no LAD, no thyromegaly, no JVD Resp:Non-labored, no wheezing/rhonchi/rales, CTAB CV:RRR, normal S1/S2, no M/R/G Abd: Soft, non-distended, no TTP, normoactive bowels, no masses Extr: 2+ dp bilaterally, no edema Skin: No rashes lesions or erythema Discharge Data Allergies Allergy/AdvReac Type Severity Reaction Status Date / Time Penicillins AdvReac Intermediate GI SYMPTOMS Verified 07/05/22 21:01 Consultations 07/05/22 21:53 ED Decision to Admit Stat 07/06/22 18:58 Consult Cardiology Routine Procedures Performed Operation Date: 07/08/22 12:00 Actual Procedures p Right Heart Cath Only - Reza Mcclendon MD s Cineradiography w/Routine Exam - Reza Mcclendon MD Ordered Studies 07/05/22 22:12 US venous doppler UE LT Stat 07/08/22 11:32 CL Cath Imgs for PACS use only Urgent Hospital Course (1) Acute on chronic respiratory failure with hypoxia: (2) Acute kidney injury superimposed on CKD: (3) Left arm swelling: (4) Leg edema: (5) Paroxysmal atrial fibrillation: (6) T2DM (type 2 diabetes mellitus): (7) Anemia: (8) Hypertension: (9) Hyperlipidemia: Plan Coco is 81 y/o female with hx of pAFib/sick sinus syndrome (s/p PPM in 2021, on Eliquis, BB and CCB), LE edema w/ chronic HFpEF (TTE in 02/28 with EF 50-55%, LA dilation and elevated RVSP 40-50), COPD (on chronic 3-4L/min O2), T2DM, CKD3b (baseline Cr 1.3), MIKE, HTN, HLD, chronic incontinence, anxiety and GERD admitted for COPD exacerbation and progression from HFpEF to HFrEF (EF 25-30%) confirmed on cardiac cath 07/08. Patient was fluid overloaded on presentation and is likely now at dry weight. Dry Weight: 80.2 kg. HFrEF w/edema requiring aggressive diuresis -likely at dry weight at discharge Known HFpEF presented with worsening LE edema, LUE edema, orthopnea, hypoxia/SOB x several weeks non-responsive to increased PO Lasix. Repeat TTE shows significant worsening of EF. Patient now carries diagnosis of HFrEF (EF 25-30%) confirmed on cardiac cath 07/08. Could benefit from afterload reduction - Entresto started 07/16/22 - Recommend f/u BMP 07/18 to follow kidney function Had successful and productive diuresis with Lasix 40 mg BID17 with chlorothiazide 500 IV 30 minutes prior x3 doses. Patient appears to be close to dry weight - will hold off on chlorothiazide at this point. Recommend Lasix 40 mg PO BID for the next 3-7 days with reassessment of fluid status - daily weights, Is and Os, and BMP to monitor Cr. Once euvolemic can return to home dose of 40 mg Lasix QD. - Continue Lasix 40 mg PO BID for the next 3-7 days - If patient remains euvolemic, would recommend return to home dose of Lasix 40 mg PO daily COPD Exacerbation Known COPD, 20 pack year smoking history, presented with wheezing, SOB, worsening cough. COVID-19 negative and CXR without evidence for PNA. BioFire negative. Treated with steroids and azithromycin x5 days, duonebs. Patient on 3- 4L NC at baseline. Has been satting well on 2 L NC O2 requirement may actually be lower when euvolemic. Would recommend continued monitoring. Patient did develop thrush likely in the setting ofduoneb use. Treated with nystatin swish and swallow - improved, continue after discharge. Continue home inhalers, duonebs as needed. - Continue 2 L NC, patient oxygenating well on 2 L inpatient (patient's previous baseline 3-4 L, likely d/t hypervolemia) - Continue Nystatin swish/swallow for oral thrush x 3 days - Continue inhalers and Duoneb PRN CHESTER superimposed on CKD -improving Baseline is not apparent ranges from 1.3 - 4. Creatinine 2.63 improved to 1.44. Continue diuresis as tolerated. Patient is fluid overloaded in the extravascular space and dry in the intravascular space. Continue to monitor. Avoid nephrotoxins. - Cr 1.51, overall improvement from presentation - Continue to avoid nephrotoxins - Recheck [facility] Monday Electrolyte Abnormalities Continue to monitor. Hyponatremia 2/2 to fluid overload. Hypokalemia 2/2 diuresis. - Resolved, follow with [facility] Monday Paroxysmal a. fib s/p permanent pacemaker earlier this year. Currently rate-controlled. EKG with a-fib at 67 bpm and frequent AV dual-paced complexes. CXR with cardiomegaly (chronic) but no acute chest disease. Can resume home dosing of Eliquis on discharge as Cr ~ 1.5. Would recommend decreasing dose to 2.5 if Cr climbs again. Continue home metoprolol/diltiazem. - Resume patient's Eliquis, Cr 15 1.51 - Decrease dose to 2.5 from 5 if Cr elevates in future TIIDM A1c 6.6. Hold home meds and utilize SSI while hospitalized. Resume home meds on discharge. Anemia Chronic iron deficiency anemia. Continue home ferrous sulfate. HTN Normotensive while here. Continue home BB/CCB as stated above. HLD Continue home statin. FEN/GI: heart-healthy/DM2/Na-restricted diet DVT Prophylaxis: Eliquis Code Status: Full code Disposition: [facility] Total Time Total Time Spent Total Time Spent (In Minutes): see attending attestation Discharge Plan Discharge Items Patient Disposition: Transfer Inpatient Rehab Fac Reason For Visit: COPD EXACERBATION, ?ACUTE CHF Discharge Diagnosis: HFrEF with fluid overload + COPD exacerbation Activity: Per Instructions section Non-emergency contact: Primary Care Provider and Correctional Program Specialist Call non-emergency contact if: you have any medication questions and your temperature is above 101.5 Follow-up/Referrals: Reza Mcclendon MD [Physician] - Irina Vivar MD [Primary Care Provider] - Diet: Carb Consistent or DM2 and Low Sodium (2gm) Fluids: 1500ml (6 cups) Addtl Attending Provider Instructions: Coco is 81 y/o female with hx of pAFib/sick sinus syndrome (s/p PPM in 2021, on Eliquis, BB and CCB), LE edema w/ chronic HFpEF (TTE in 02/28 with EF 50-55%, LA dilation and elevated RVSP 40-50), COPD (on chronic 3-4L/min O2), T2DM, CKD3b (baseline Cr 1.3), MIKE, HTN, HLD, chronic incontinence, anxiety and GERD admitted for COPD exacerbation and progression from HFpEF to HFrEF (EF 25-30%) confirmed on cardiac cath 07/08. Patient was fluid overloaded on presentation and is likely now at dry weight. Dry Weight: 80.2 kg. HFrEF w/edema requiring aggressive diuresis-likely at dry weight at discharge Known HFpEF presented with worsening LE edema, LUE edema, orthopnea, hypoxia/SOB x several weeks non-responsive to increased PO Lasix. Repeat TTE shows significant worsening of EF. Patient now carries diagnosis of HFrEF (EF 25-30%) confirmed on cardiac cath 07/08. Could benefit from afterload reduction - Entresto started 07/16/22 - Recommend f/u BMP 07/18 to follow kidney function Had successful and productive diuresis with Lasix 40 mg BID17 with chlorothiazide 500 IV 30 minutes prior x3 doses. Patient appears to be close to dry weight - will hold off on chlorothiazide at this point. Recommend Lasix 40 mg PO BID for the next 3-7 days with reassessment of fluid status - daily weights, Is and Os, and BMP to monitor Cr. Once euvolemic can return to home dose of 40 mg Lasix QD. - Continue Lasix 40 mg PO BID for the next 3-7 days - If patient remains euvolemic, would recommend return to home dose of Lasix 40 mg PO daily COPD Exacerbation Known COPD, 20 pack year smoking history, presented with wheezing, SOB, worsening cough. COVID-19 negative and CXR without evidence for PNA. BioFire negative. Treated with steroids and azithromycin x5 days, duonebs. Patient on 3- 4L NC at baseline. Has been satting well on 2 L NC O2 requirement may actually be lower when euvolemic. Would recommend continued monitoring. Patient did deve lop thrush likely in the setting ofduoneb use. Treated with nystatin swish and swallow - improved, continue after discharge. Continue home inhalers, duonebs as needed. - Continue 2 L NC, patient oxygenating well on 2 L inpatient (patient's previous baseline 3-4 L, likely d/t hypervolemia) - Continue Nystatin swish/swallow for oral thrush x 3 days - Continue inhalers and Duoneb PRN CHESTER superimposed on CKD-improving Baseline is not apparent ranges from 1.3 - 4. Creatinine 2.63 improved to 1.44. Continue diuresis as tolerated. Patient is fluid overloaded in the extravascular space and dry in the intravascular space. Continue to monitor. Avoid nephrotoxins. - Cr 1.51, overall improvement from presentation - Continue to avoid nephrotoxins - Recheck [facility] Monday Electrolyte Abnormalities Continue to monitor. Hyponatremia 2/2 to fluid overload. Hypokalemia 2/2 diures is. - Resolved, follow with [facility] Monday Paroxysmal a. fib s/p permanent pacemaker earlier this year. Currently rate-controlled. EKG with a-fib at 67 bpm and frequent AV dual-paced complexes. CXR with cardiomegaly (chronic) but no acute chest disease. Can resume home dosing of Eliquis on discharge as Cr ~ 1.5. Would recommend decreasing dose to 2.5 if Cr climbs again. Continue home metoprolol/diltiazem. - Resume patient's Eliquis, Cr 15 1.51 - Decrease dose to 2.5 from 5 if Cr elevates in future TIIDM A1c 6.6. Hold home meds and utilize SSI while hospitalized. Resume home meds on discharge. Anemia Chronic iron deficiency anemia. Continue home ferrous sulfate. HTN Normotensive while here. Continue home BB/CCB as stated above. HLD Continue home statin. FEN/GI: heart-healthy/DM2/Na-restricted diet DVT Prophylaxis: Eliquis Code Status: Full code Disposition: [facility] Pending Studies at Discharge: No Stand-Alone Forms: My [facility] Skilled Items Patient informed of condition?: Yes DNR: No Discharge Level of Care: Skilled Communicable Disease: No Discharge Prognosis: Stable Lines: None Urinary Catheter: No Medications and DC Order Prescriptions: Continued montelukast 10 mg tablet 10 mg PO DAILY Qty: 90 1RF empagliflozin 10 mg tablet 10 mg PO DAILY Qty: 90 3RF Eliquis 5 mg tablet 5 mg PO BID Qty: 180 3RF atorvastatin 40 mg tablet 40 mg PO DAILY Qty: 90 3RF diltiazem HCl 240 mg capsule,extended release 24hr 240 mg PO QAM Qty: 90 3RF fluoxetine 20 mg capsule 20 mg PO DAILY Qty: 90 3RF fluticasone furoate-vilanterol 200-25 mcg/dose blister with device 1 inh INHALATION DAILY Qty: 90 3RF furosemide [Lasix] 40 mg tablet 40 mg PO DAILY Qty: 90 3RF metformin 500 mg tablet 500 mg PO BID Qty: 180 3RF omeprazole 20 mg capsule,delayed release(DR/EC) 20 mg PO DAILY Qty: 90 3RF metoprolol succinate 100 mg tablet extended release 24 hr 100 mg PO Q12H Qty: 180 3RF lorazepam 0.5 mg tablet 0.5 mg PO DAILY PRN (Reason: anxiety) Qty: 30 0RF cetirizine 10 mg tablet 10 mg PO DAILY cyanocobalamin (vitamin B-12) 500 mcg Tablet 1,000 mcg PO QAM Qty: 30 0RF ferrous sulfate 325 mg (65 mg iron) tablet,delayed release (DR/EC) 325 mg PO 3XWK Rx Instructions: TAKES MON, WED, & FRI @ 0900 ketoconazole 2 % cream 1 applic topical BID PRN (Reason: RASH UNDER BREASTS) Rx Instructions: STARTED 06/13/22 apply under breasts twice daily for 2 weeks Discharge Orders: Discharge Order (Routine); Ordered 07/17/22 Ordered By: Pascual Mckeon Admission Data Admit Date/Time: 07/05/22 22:28 Attending Provider: Sudheer Valentino Admit Provider: Gene Figueroa Primary Care Provider: Irina Vivar Other Providers: Steven Adamson ; Reza Mcclendon ; Omkar Lin ; [facility] Other Interventions: Discharge Summary Assessment (RN) Last Done: 07/17/22 10:11 Supervising Physician Co-Signing Physician Notes Chart reviewed, case discussed with . Agree with above. Given fairly limited notice prior to transportation, and me being in a different room that held up prior to discharge, I was not actually able to see the patient todayby the time I was able to make it to her room she had just left. [facility]. Date of service for discharge was 07/17 Resident Activity Tracking Resident Involvement: Resident Care Provided Care Provided: Adult Hospital Medicine
--- NOTE | 2022-07-16 17:28 | Hospitalist Progress Note ---
Date of Service July 16, 2022 Assessment & Plan (1) Acute on chronic respiratory failure with hypoxia: (2) Acute kidney injury superimposed on CKD: (3) Left arm swelling: (4) Leg edema: (5) Paroxysmal atrial fibrillation: (6) T2DM (type 2 diabetes mellitus): (7) Anemia: (8) Hypertension: (9) Hyperlipidemia: Plan Coco is 81 y/o female with hx of pAFib/sick sinus syndrome (s/p PPM in 2021, on Eliquis, BB and CCB), LE edema w/ chronic HFpEF (TTE in 02/28 with EF 50-55%, LA dilation and elevated RVSP 40-50), COPD (on chronic 3-4L/min O2), T2DM, CKD3b (baseline Cr 1.3), MIKE, HTN, HLD, chronic incontinence, anxiety and GERD admitted for COPD exacerbation and progression from HFpEF to HFrEF (EF 25-30%) confirmed on cardiac cath 07/08. Patient was fluid overloaded on presentation and is likely now at dry weight. Dry Weight: 80.2 kg. HFrEF w/edema requiring aggressive diuresis -likely at dry weight at discharge Known HFpEF presented with worsening LE edema, LUE edema, orthopnea, hypoxia/SOB x several weeks non-responsive to increased PO Lasix. Repeat TTE shows significant worsening of EF. Patient now carries diagnosis of HFrEF (EF 25-30%) confirmed on cardiac cath 07/08. Could benefit from afterload reduction - Entresto started 07/16/22 - Recheck BMP Monday at [facility] Had successful and productive diuresis with Lasix 40 mg BID17 with chlorothiazide 500 IV 30 minutes prior x3 doses. Patient appears to be close to dry weight - will hold off on chlorothiazide at this point. Recommend Lasix 40 mg PO BID for the next 3-7 days with reassessment of fluid status - daily weights, Is and Os, and BMP to monitor Cr. Once euvolemic can return to home dose of 40 mg Lasix QD. - Continue Lasix 40 mg PO BID for the next 3-7 days - If patient remains euvolemic, would recommend return to home dose of Lasix 40 mg PO daily COPD Exacerbation Known COPD, 20 pack year smoking history, presented with wheezing, SOB, worsening cough. COVID-19 negative and CXR without evidence for PNA. BioFire negative. Treated with steroids and azithromycin x5 days, duonebs. Patient on 3- 4L NC at baseline. Has been satting well on 2 L NC O2 requirement may actually be lower when euvolemic. Would recommend continued monitoring. Patient did develop thrush likely in the setting ofduoneb use. Treated with nystatin swish and swallow - improved, continue after discharge. Continue home inhalers, duonebs as needed. - Continue 2 L NC, patient oxygenating well on 2 L inpatient (patient's previous baseline 3-4 L, likely d/t hypervolemia) - Continue Nystatin swish/swallow for oral thrush x 3 days - Continue inhalers and Duoneb PRN CHESTER superimposed on CKD -improving Baseline is not apparent ranges from 1.3 - 4. Creatinine 2.63 improved to 1.44. Continue diuresis as tolerated. Patient is fluid overloaded in the extravascular space and dry in the intravascular space. Continue to monitor. Avoid nephrotoxins. - Cr 1.51, overall improvement from presentation - Continue to avoid nephrotoxins - Recheck [facility] Monday Electrolyte Abnormalities Continue to monitor. Hyponatremia 2/2 to fluid overload. Hypokalemia 2/2 diuresis. - Resolved, follow with [facility] Monday Paroxysmal a. fib s/p permanent pacemaker earlier this year. Currently rate-controlled. EKG with a-fib at 67 bpm and frequent AV dual-paced complexes. CXR with cardiomegaly (chronic) but no acute chest disease. Can resume home dosing of Eliquis on discharge as Cr ~ 1.5. Would recommend decreasing dose to 2.5 if Cr climbs again. Continue home metoprolol/diltiazem. - Resume patient's Eliquis, Cr 15 1.51 - Decrease dose to 2.5 from 5 if Cr elevates in future TIIDM A1c 6.6. Hold home meds and utilize SSI while hospitalized. Resume home meds on discharge. Anemia Chronic iron deficiency anemia. Continue home ferrous sulfate. HTN Normotensive while here. Continue home BB/CCB as stated above. HLD Continue home statin. FEN/GI: heart-healthy/DM2/Na-restricted diet DVT Prophylaxis: Eliquis Code Status: Full code Disposition: Med/surg Admission and Anticipated Discharge Date Admission Date: July 05, 2022 Supervising Physician Co-Signing Physician Notes I personally examined the patient and verified all choi points of history and exam, discussed case, and agree with decision making with Dr Mckeon Yet again, plan was for rehab today, and yet again, unfortunately no transportation available. Patient updated. Vitals noted, in general she is awake and alert pleasant no distress. HEENT normocephalic atraumatic mucous membranes moist. Breathing unlabored no accessory muscle use good effort. Skin shows no rashes no pallor or icterus. Acute on chronic hypoxic respiratory failure in the setting of COPD w/ exacerbation - baseline O2 3-4L. Continue duonebs PRN. Completed course of azithromycin, as well as a course of pred x 5 days. This appears to essentially resolved HFrEF w/ acute excaerbation - Echo as noted. Improvingcontinue diuretics. At this point creatinine is improved to where it is no longer a narrow riskbenefit balance to consider afterload reduction such as Entresto, but more in line with standard of care. Initiate Entresto today, follow basic metabolic panel closelygiven that she does have CKD, certainly higher risk that she will not tolerate it, but at the same time, if she does it is likely to be of significant benefit CHESTER on CKDIII - Monitor BMP periodically, improving with diuresis, follow closely on Entresto. for rehab Subjective Coco is 81 y/o female with hx of pAFib/sick sinus syndrome (s/p PPM in 2021, on Eliquis, BB and CCB), LE edema w/ chronic HFpEF (TTE in 02/28 with EF 50-55%, LA dilation and elevated RVSP 40-50), COPD (on chronic 3-4L/min O2), T2DM, CKD3b (baseline Cr 1.3), MIKE, HTN, HLD, chronic incontinence, anxiety and GERD admitted for COPD exacerbation and progression from HFpEF to HFrEF (EF 25-30%) confirmed on cardiac cath 07/08. Coco states that she is feeling well today. She was resting comfortably upon arrival and had many questions, which were answered. She denies any chest pain or dyspnea. She feels as though her swelling is much improved. She denies any abdominal pain or bowel/bladder changes. She denies any headaches or visual ch anges. She notes she is ready to go to [facility]. Patient noted that she communicates best whenever things are written down for her as she cannot hear. Review of Systems Review of Systems: As per HPI Physical Exam Physical Exam: Gen: NAD, alert, interactive. HEENT: Supple, no LAD, no thyromegaly, no JVD Resp:Non-labored, no wheezing/rhonchi/rales, CTAB CV:RRR, normal S1/S2, no M/R/G Abd: Soft, non-distended, no TTP, normoactive bowels, no masses Extr: 2+ dp bilaterally, no edema Skin: No rashes lesions or erythema Results & Data Results & Data ([facility]) Vital Signs (Past 12 Hours) Vital Signs Temp Pulse Pulse Resp BP Pulse Ox O2 Del Method 07/16/22 15:34 36.0 C L 77 18 119/70 95 Nasal Cannula 07/16/22 15:16 60 07/16/22 11:34 36.5 C 84 18 146/81 H 99 Nasal Cannula 07/16/22 07:56 36.5 C 85 18 120/77 97 Nasal Cannula 07/16/22 07:18 91 H O2 Flow Rate 07/16/22 15:34 2 07/16/22 15:16 07/16/22 11:34 2 07/16/22 07:56 2 07/16/22 07:18 Resident Activity Tracking Resident Involvement: Resident Care Provided Care Provided: Adult Hospital Medicine
--- NOTE | 2022-07-16 18:43 | Billing Data ---
Date of Service July 16, 2022 Coding Level of Care Code 37428 SUB INP/OBS CARE
[2022-07-17 06:37] LABS: Hemoglobin 9.9 g/dl (12.0-16.0); Mean Corpuscular Hemoglobin 23.1 pg (25.0-34.0); Mean Corpuscular Hgb Conc 28.3 g/dL (32.0-36.0); Mean Corpuscular Volume 81.6 fL (80.0-100.0); Mean Platelet Volume 11.8 fL (9.4-12.3); Platelet Count 205 K/uL (130-400); RDW Coefficient of Variation 17.4 % (11.5-14.5); RDW Standard Deviation 50.8 fL (36.4-46.3); Red Blood Count 4.29 M/uL (3.93-5.22); White Blood Count 8.48 K/ul (4.8-10.8)
[2022-07-17 07:25] LABS: BUN Creatinine Ratio 29.7 (10-20); Calcium 8.7 mg/dl (8.5-10.1); Creatinine Clr Calc Pharmacy 32.9 ml/min; Est GFR (African American) 44.8 ml/min; Est GFR (Non-African American) 38.6 ml/min; Potassium 3.9 mmol/L (3.5-5.1)
[2022-07-17] MEDS: MONTELUKAST SODIUM 10 MG TABLET PO SCH (07:48)
[2022-07-17] MEDS: CYANOCOBALAMIN (B-12) 500 MCG TABLET PO SCH (07:48)
[2022-07-17] MEDS: guaiFENesin 600 MG TABCR PO SCH (07:48)
[2022-07-17] MEDS: METOPROLOL SUCC 50MG EXT REL TAB PO SCH (07:48)
[2022-07-17] MEDS: FLUoxetine HCL 20 MG CAP PO SCH (07:48)
[2022-07-17] MEDS: PANTOprazole 40 MG TAB PO SCH (07:48)
[2022-07-17] MEDS: APIXABAN 2.5 MG TAB PO SCH (07:48)
[2022-07-17] MEDS: CETIRIZINE HCL 10 MG TABLET PO SCH (07:49)
[2022-07-17] MEDS: ATORVASTATIN 40 MG TAB PO SCH (07:49)
[2022-07-17] MEDS: FLUTICASONE/VILANTEROL 200/25MCG 14 PUFFS/INHALER INH SCH (07:49)
[2022-07-17] MEDS: VALSARTAN/SACUBITRIL 26/24MG TAB PO SCH (07:49)
[2022-07-17] MEDS: NYSTATIN SUSP 500,000 U/5 ML UDC PO SCH (07:50)
[2022-07-17] MEDS: FUROSEMIDE 40 MG/4 ML VIAL IV SCH (08:05)
[2022-07-17] MEDS: INSULIN ASPART PER UNIT SC SCH (08:05)
--- NOTE | 2022-07-17 16:21 | Billing Data ---
Date of Service July 17, 2022 Coding Level of Care Code HOSP INP/OBS DISCH 30 MIN/LESS
== END 2022-07-17 11:08 | DRG 286 ==
LOC: ED 15:44 → SUATTDRO 22:28 → EDINP 22:28 → 2N 23:34 → 2S 07-08 12:52 → 2N 07-12 23:53
PROC: CLB.CRH (2022-07-08 12:00)
DX: I50.23 Acute on chronic systolic (congestive) heart failure; I48.0 Paroxysmal atrial fibrillation; E78.5 Hyperlipidemia, unspecified; E87.6 Hypokalemia; E87.1 Hypo-osmolality and hyponatremia; E11.22 Type 2 diabetes mellitus with diabetic chronic kidney disease; N18.32 Chronic kidney disease, stage 3b; Z95.0 Presence of cardiac pacemaker; I13.0 Hypertensive heart and chronic kidney disease with heart failure and stage 1 through stage 4 chronic kidney disease, or unspecified chronic kidney disease; K21.9 Gastro-esophageal reflux disease without esophagitis; R32 Unspecified urinary incontinence; D50.9 Iron deficiency anemia, unspecified; Z79.01 Long term (current) use of anticoagulants; I42.9 Cardiomyopathy, unspecified; J96.21 Acute and chronic respiratory failure with hypoxia; N17.9 Acute kidney failure, unspecified; Z87.891 Personal history of nicotine dependence; I48.19 Other persistent atrial fibrillation; J44.1 Chronic obstructive pulmonary disease with (acute) exacerbation; I49.5 Sick sinus syndrome; Z99.3 Dependence on wheelchair

== ENCOUNTER 2022-08-08 04:47 | Inpatient (IN) ==
[2022-08-08 06:53] LABS: Hematocrit (blood only) 34.5 % (37.0-47.0); Hemoglobin 9.7 g/dl (12.0-16.0); Mean Corpuscular Hemoglobin 23.3 pg (25.0-34.0); Mean Corpuscular Hgb Conc 28.1 g/dL (32.0-36.0); Mean Corpuscular Volume 82.7 fL (80.0-100.0); Mean Platelet Volume 12.3 fL (9.4-12.4); Nucleated RBC # (auto) 0.02 K/uL (0-0.12); Nucleated RBC % (auto) 0.2 %; Platelet Count 300 K/uL (130-400); RDW Coefficient of Variation 19.3 % (11.5-14.5); RDW Standard Deviation 57.2 fL (36.4-46.3); Red Blood Count 4.17 M/uL (4.20-5.40); White Blood Count 8.52 K/ul (4.8-10.8)
[2022-08-08 07:25] LABS: Albumin Globulin Ratio 1.3 (0.9-2); Albumin Level 3.9 gm/dl (3.4-5.0); BUN Creatinine Ratio 18.4 (10-20); Bilirubin,Total 0.6 mg/dl (0.2-1.0); Calcium 9.8 mg/dl (8.5-10.1); Creatinine Clr Calc Pharmacy 12.7 ml/min; Est GFR (African American) 13.6 ml/min; Est GFR (Non-African American) 11.7 ml/min; Potassium 6.3 mmol/L (3.5-5.1); Total Protein 6.9 gm/dl (6.0-8.3)
[2022-08-08] MEDS ORDERED: SODIUM CHLORIDE 0.9% 1000ML 1,000 ML IV ONE (07:35)
--- NOTE | 2022-08-08 07:35 | Emergency Department Note ---
Impression & Plan CHESTER (acute kidney injury), Acute hyperkalemia, Bilateral edema of lower extremity, Lower extremity pain, bilateral ED Provider Note INFORMANT: Patient ED PROVIDER(S): Arash Butts MD CHIEF COMPLAINT: Leg swelling PLAN: Disposition: Admitted Condition: Good Outpatient prescription management: none Referral: None MEDICAL DECISION MAKING: Patient presented to the department because of leg swelling and pain. She had a history of CHF on record review. The patient had blood work obtained. She was a difficult IV stick. The patient did have mildly low blood pressure. There was concerns on her physical examination for possible venous versus arterial compromise to the lower extremities. The patient was started on some fluid hydration. She had an unremarkable CBC. No significant leukocytosis. She was afebrile. The patient's chemistry panel revealed CHESTER as well as hyperkalemia. Due to the difficulty of the IV stick a repeat potassium was ordered. The patie nt was also found to have an elevated lactate. There is no obvious infectious source and I was concerned that this may be related to her lower extremities. On record review the patient also had prior elevations of her lactate on multiple visits. This complicated things more. She had blood cultures already obtained and was empirically treated with a dose of IV cefepime. There is no clear indication of sepsis and in fact she has findings that are more concerning for some CHF. She had significant elevation of her BNP and does have some pulmonary vascular congestion on chest x-ray. She was not aggressively treated with a 30 mL/kg fluid bolus per sepsis protocol because of these issues. U ltrasound imaging as well as arterial and venous duplex seeing did not reveal any evidence of significant DVT. She did have some PAD noted but there was reconstitution distally. The patient will need further management in the hospital and the amount and hospital service was consulted. I did discuss the case with Ab Mcfadden PA-C. Repeat potassium and lactate were pending. The patient was evaluated in the ER and admitted. Repeat blood work was obtained and the patient's potassium was elevated. Internal medicine was already aware and will manage the potassium. ECG does not show any signs of acute hyperkalemia. After review of the information above and other included data, I feel the p atient requires admission for further management.. Triage Nursing notes reviewed and agree them. Vital Signs: reviewed and remarkable for mildly low blood pressure. Prior /Outside records reviewed: Prior hospitalization records reviewed. Frequent lactic acidosis noted. Differential diagnosis: DVT, musculoskeletal, infection, joint effusion, trauma, lymphedema, idiopathic, CHF, as well as other pathologies. Diagnostics, as interpreted by me: ECG: Twelve-lead ECG reveals a atrial fibrillation at 100 bpm. Rightward axis. Prolonged QT. Nonspecific ST. No ST elevation. No peaked T waves. Cardiac Monitoring: Cardiac monitoring ordered by me: The patient was placed on continuous cardiac monitoring and observed. It revealed atrial fibrillation at 101 beats per minute without ectopy or evidence of dysrhythmia. Medical decision rules: none Imaging studies: Chest x-ray as noted above. CHF. Ultrasound imaging of the venous and arterial system as noted above. I refer you to the EMR for further details. HPI: The patient is a 81year old female who presents to the Emergency Room with complaints of leg swelling. This started about a week ago and is worsening. The patient also notes the following associated symptoms, weeping of her legs, feeling some generalized weakness, legs breaking out, leg pain bilaterally, transient nausea, mild diarrhea last week. The patient has found no relieving factors. Patient unable to quantify pain but notes legs are very tender to the touch. Describes it as burning. Pt denies LOC, headache, fevers, chills, diaphoresis, visual changes, neck pain, chest pain, breathing difficulties, vomiting, abdominal pain, back pain, melena, hematochezia, urinary symptoms, numbness, lymphadenopathy, or other complaints. PAST MEDICAL HISTORY: See Below, CHF, CKD, paroxysmal A. fib PAST SURGICAL HISTORY: See Below, pacemaker SOCIAL HISTORY: See Below, retired HOME MEDICATIONS: See Below ALLERGIES: See Below VITALS: See Below PHYSICAL EXAMINATION: GENERAL: Awake, alert, uncomfortable-appearing, in no distress HENT: Normocephalic, atraumatic. Oropharynx unremarkable. EYES: Normal conjunctiva. Sclera non-icteric. NECK: Inspection normal. Non-tender. Supple. No nuchal rigidity. FROM. No masses. RESPIRATORY: Clear to auscultation. No wheezes. No rales. Normal respiratory e ffort. CARDIAC: Normal rate. Normal rhythm. No murmurs. No rubs. No JVD. GI: Soft, non-distended. No tenderness to palpation. No rebound or guarding. No masses. RECTAL: Deferred. MUSCULOSKELETAL: Atraumatic. Chest examination reveals no tenderness. The back is symmetrical on inspection without obvious abnormality. There is no CVA tenderness to palpation. No joint edema. LOWER EXTREMITIES: Calves are equal size bilaterally and tender. 2-3+ edema. Mild erythematous discoloration bilaterally. There are some mild duskiness to the toes with capillary refill of about 3 seconds. NEURO: Normal sensorium. No sensory or motor deficits noted. SKIN: No rash or jaundice noted. Past Med/Surg History Medical History (Updated 08/08/22 @ 11:48 by Ab Mcfadden PA-C) Acute respiratory failure with hypoxia Anxiety Atrial fibrillation CKD stage G3b/A3, GFR 30-44 and albumin creatinine ratio >300 mg/g COPD (chronic obstructive pulmonary disease) Diabetes mellitus Hyperlipidemia Hypertension T2DM (type 2 diabetes mellitus) Surgical History No pertinent past surgical history S/P cataract extraction Status post cardiac pacemaker procedure Family History Other Colorectal cancer Hypertension Kidney disease Lung disease Prostate cancer Denies family history of Breast cancer Social History Smoking Status: Never smoker Cigarettes Per Day: smoked for 60 years; Second Hand Exposure: Yes; Hx Alcohol Use: No Hx Substance Use: No Preferred Language: Chinese Communication Ability: Effective Asset Protection Representative Required: No Beliefs That Will Affect Care: None marital status: / Current Living Situation: Longterm current occupational status: retired Feels Safe at Home: Yes Safety Concerns: Feels Safe At This Time caffeine: No Dental Care, Regularly: Yes Seatbelt Use: always Sunscreen Use: No Assistive Devices: Cane, Oxygen - Continuous and Walker Allergies Allergies Allergy/AdvReac Type Severity Reaction Status Date / Time Penicillins AdvReac Intermediate GI SYMPTOMS Verified 07/05/22 21:01 Home Meds Home Medications Medication Instructions Recorded Confirmed apixaban 5 mg tablet (Eliquis) 2.5 mg PO BID 08/08/22 docusate sodium 100 mg capsule 100 mg PO DAILY 08/08/22 08/08/22 (Colace) losartan 25 mg tablet 25 mg PO DAILY 08/08/22 08/08/22 sacubitril 24 mg-valsartan 26 mg 1 tab PO BID 08/08/22 08/08/22 tablet (Entresto) zafirlukast 10 mg tablet 10 mg PO BID 08/08/22 08/08/22 Previous Rx's Medication Instructions Recorded cyanocobalamin (vitamin B-12) 500 1,000 mcg PO QAM #30 tabs 02/13/22 mcg tablet atorvastatin 40 mg tablet 40 mg PO DAILY #90 tabs 03/19/22 fluoxetine 20 mg capsule 20 mg PO DAILY #90 caps 03/19/22 fluticasone furoate 200 1 inh inhalation DAILY #90 ea 03/19/22 mcg-vilanterol 25 mcg/dose inhalation powder furosemide 40 mg tablet (Lasix) 40 mg PO DAILY #90 tabs 03/19/22 metformin 500 mg tablet 500 mg PO BID #180 tabs 03/19/22 omeprazole 20 mg capsule,delayed 20 mg PO DAILY #90 caps 03/19/22 release metoprolol succinate 100 mg 100 mg PO Q12H #180 tabs 03/30/22 tablet,extended release 24 hr montelukast 10 mg tablet 10 mg PO DAILY #90 tabs 04/26/22 Results & Data (ED) Vital Signs Vital Signs - 24 hr 08/08/22 04:43 08/08/22 04:55 08/08/22 04:56 Temperature 36.7 C Temperature Source Temporal Artery Scan Pulse Rate 102 H 99 H Pulse Rate [Apical] Respiratory Rate 16 17 Respiratory Effort / Characteristics Non-Labored Respiratory Depth Normal Respiratory Pattern Regular Blood Pressure 97/64 L 97/64 L Blood Pressure [Left Arm] Blood Pressure Mean 75 75 Blood Pressure Mean [Left Arm] Pulse Oximetry 100 100 Oxygen Delivery Method Nasal Cannula Nasal Cannula Oxygen Flow Rate 2 2 Sepsis Recent Fever Within 48 Hours No Sepsis New/Unexplained Change in Mental Status No Sepsis Action Taken by Nursing No Action Required 08/08/22 05:00 08/08/22 05:15 08/08/22 05:30 Temperature Temperature Source Pulse Rate 125 H 96 H 106 H Pulse Rate [Apical] Respiratory Rate 14 16 17 Respiratory Effort / Characteristics Respiratory Depth Respiratory Pattern Blood Pressure Blood Pressure [Left Arm] Blood Pressure Mean Blood Pressure Mean [Left Arm] Pulse Oximetry 100 100 100 Oxygen Delivery Method Nasal Cannula Nasal Cannula Nasal Cannula Oxygen Flow Rate 2 2 2 Sepsis Recent Fever Within 48 Hours Sepsis New/Unexplained Change in Mental Status Sepsis Action Taken by Nursing 08/08/22 05:37 08/08/22 05:37 08/08/22 05:45 Temperature Temperature Source Pulse Rate 100 H 107 H Pulse Rate [Apical] Respiratory Rate 15 22 Respiratory Effort / Characteristics Respiratory Depth Respiratory Pattern Blood Pressure 98/46 L Blood Pressure [Left Arm] Blood Pressure Mean 63 Blood Pressure Mean [Left Arm] Pulse Oximetry 98 Oxygen Delivery Method Nasal Cannula Oxygen Flow Rate 2 Sepsis Recent Fever Within 48 Hours Sepsis New/Unexplained Change in Mental Status Sepsis Action Taken by Nursing 08/08/22 07:15 08/08/22 09:00 Temperature Temperature Source Pulse Rate Pulse Rate [Apical] 100 H 102 H Respiratory Rate 18 18 Respiratory Effort / Characteristics Respiratory Depth Respiratory Pattern Blood Pressure Blood Pressure [Left Arm] 100/63 98/62 L Blood Pressure Mean Blood Pressure Mean [Left Arm] 75 74 Pulse Oximetry 97 Oxygen Delivery Method Nasal Cannula Oxygen Flow Rate 2 Sepsis Recent Fever Within 48 Hours Sepsis New/Unexplained Change in Mental Status Sepsis Action Taken by Nursing Laboratory Data 08/08/22 06:23 08/08/22 06:23 Lab Results 08/08/22 08/08/22 08/08/22 Range/Units 06:23 06:23 06:35 WBC 8.52 (4.8-10.8) K/ul RBC 4.17 L (4.20-5.40) M/uL Hgb 9.7 L (12.0-16.0) g/dl Hct 34.5 L (37.0-47.0) % MCV 82.7 (80.0-100.0) fL MCH 23.3 L (25.0-34.0) pg MCHC 28.1 L (32.0-36.0) g/dL RDW Std Deviation 57.2 H (36.4-46.3) fL RDW Coeff of [place] 19.3 H (11.5-14.5) % Plt Count 300 (130-400) K/uL MPV 12.3 (9.4-12.4) fL Immature Gran % (Auto) 1.4 % Neut % (Auto) 65.8 % Lymph % (Auto) 19.6 % Dane % (Auto) 11.9 % Eos % (Auto) 0.7 % Baso % (Auto) 0.6 % Neut # (Auto) 5.61 (1.40-6.50) K/uL Lymph # (Auto) 1.67 (1.2-3.4) K/uL Dane # (Auto) 1.01 H (0.11-0.59) K/uL Eos # (Auto) 0.06 (0-0.50) K/uL Baso # (Auto) 0.05 (0-0.2) K/uL Immature Gran # (Auto) 0.12 (0.01-0.20) K/uL Absolute Nucleated RBC 0.02 (0-0.12) K/uL Nucleated RBC % (auto) 0.2 % Polychromasia 1+ Hypochromasia Present Echinocytes 1+ Acanthocytes (Spur) 2+ ESR (0-30) mm/hr Sodium 139 (136-145) mmol/L Potassium 6.3 H* (3.5-5.1) mmol/L Chloride 100 (98-107) mmol/L Carbon Dioxide 24 (21-32) mmol/L Anion Gap 15 H (3-11) BUN 63 H (6-23) mg/dl Creatinine 3.43 H (0.6-1.2) mg/dl Est Cr Clr Drug Dosing 12.7 ml/min Est GFR ( Amer) 13.6 ml/min Est GFR (Non-Af Amer) 11.7 ml/min BUN/Creatinine Ratio 18.4 (10-20) Glucose 96 (70-99(Fasting)) mg/dl Lactate 4.5 H* (0.4-2.0) mmol/L Calcium 9.8 (8.5-10.1) mg/dl Total Bilirubin 0.6 (0.2-1.0) mg/dl AST 16 (13-39) U/L ALT 13 (7-52) U/L Alkaline Phosphatase 103 (34-104) U/L Troponin I High Sens 11.7 (0-14) pg/ml C-Reactive Protein (0-0.5) mg/dl B-Natriuretic Peptide (0-100) pg/ml Total Protein 6.9 (6.0-8.3) gm/dl Albumin 3.9 (3.4-5.0) gm/dl Globulin 3.0 (2.5-4.0) gm/dl Albumin/Globulin Ratio 1.3 (0.9-2) Procalcitonin (0-0.5) ng/ml Urine Color Urine Appearance (Clear) Urine pH (4.5-7.5) Ur Specific [place] (1.000-1.030) Urine Protein (Negative) Urine Glucose (UA) (Negative) Urine Ketones (Negative) Urine Blood (Negative) Urine Nitrite (Negative) Urine Bilirubin (Negative) Urine Urobilinogen (Negative) Ur Leukocyte Esterase (Negative) Urine WBC (Auto) (0-5) /hpf Urine RBC (Auto) (0-4) /hpf U Hyaline Cast (Auto) (0-5) /lpf U Epithel Cells (Auto) (0-5) /lpf Urine Bacteria (Auto) (Negative) Ur Random Creatinine mg/dl U Random Total Protein (0-11.9) mg/dl Protein/Creatinin Ratio (0-0.2) 08/08/22 08/08/22 08/08/22 Range/Units 07:17 09:45 09:45 WBC (4.8-10.8) K/ul RBC (4.20-5.40) M/uL Hgb (12.0-16.0) g/dl Hct (37.0-47.0) % MCV (80.0-100.0) fL MCH (25.0-34.0) pg MCHC (32.0-36.0) g/dL RDW Std Deviation (36.4-46.3) fL RDW Coeff of [place] (11.5-14.5) % Plt Count (130-400) K/uL MPV (9.4-12.4) fL Immature Gran % (Auto) % Neut % (Auto) % Lymph % (Auto) % Dane % (Auto) % Eos % (Auto) % Baso % (Auto) % Neut # (Auto) (1.40-6.50) K/uL Lymph # (Auto) (1.2-3.4) K/uL Dane # (Auto) (0.11-0.59) K/uL Eos # (Auto) (0-0.50) K/uL Baso # (Auto) (0-0.2) K/uL Immature Gran # (Auto) (0.01-0.20) K/uL Absolute Nucleated RBC (0-0.12) K/uL Nucleated RBC % (auto) % Polychromasia Hypochromasia Echinocytes Acanthocytes (Spur) ESR (0-30) mm/hr Sodium (136-145) mmol/L Potassium (3.5-5.1) mmol/L Chloride (98-107) mmol/L Carbon Dioxide (21-32) mmol/L Anion Gap (3-11) BUN (6-23) mg/dl Creatinine (0.6-1.2) mg/dl Est Cr Clr Drug Dosing ml/min Est GFR ( Amer) ml/min Est GFR (Non-Af Amer) ml/min BUN/Creatinine Ratio (10-20) Glucose (70-99(Fasting)) mg/dl Lactate (0.4-2.0) mmol/L Calcium (8.5-10.1) mg/dl Total Bilirubin (0.2-1.0) mg/dl AST (13-39) U/L ALT (7-52) U/L Alkaline Phosphatase (34-104) U/L Troponin I High Sens (0-14) pg/ml C-Reactive Protein (0-0.5) mg/dl B-Natriuretic Peptide 3213 H (0-100) pg/ml Total Protein (6.0-8.3) gm/dl Albumin (3.4-5.0) gm/dl Globulin (2.5-4.0) gm/dl Albumin/Globulin Ratio (0.9-2) Procalcitonin (0-0.5) ng/ml Urine Color Dark Yellow Urine Appearance Cloudy A (Clear) Urine pH 5.0 (4.5-7.5) Ur Specific [place] 1.021 (1.000-1.030) Urine Protein 2+ H (Negative) Urine Glucose (UA) Negative (Negative) Urine Ketones Trace H (Negative) Urine Blood Negative (Negative) Urine Nitrite Negative (Negative) Urine Bilirubin Negative (Negative) Urine Urobilinogen Negative (Negative) Ur Leukocyte Esterase Trace H (Negative) Urine WBC (Auto) 1-5 (0-5) /hpf Urine RBC (Auto) 0-4 (0-4) /hpf U Hyaline Cast (Auto) 0 (0-5) /lpf U Epithel Cells (Auto) >30 H (0-5) /lpf Urine Bacteria (Auto) Negative (Negative) Ur Random Creatinine 154.9 mg/dl U Random Total Protein 129.3 H (0-11.9) mg/dl Protein/Creatinin Ratio 0.8 H (0-0.2) 08/08/22 08/08/22 08/08/22 Range/Units 10:12 10:12 10:16 WBC (4.8-10.8) K/ul RBC (4.20-5.40) M/uL Hgb (12.0-16.0) g/dl Hct (37.0-47.0) % MCV (80.0-100.0) fL MCH (25.0-34.0) pg MCHC (32.0-36.0) g/dL RDW Std Deviation (36.4-46.3) fL RDW Coeff of [place] (11.5-14.5) % Plt Count (130-400) K/uL MPV (9.4-12.4) fL Immature Gran % (Auto) % Neut % (Auto) % Lymph % (Auto) % Dane % (Auto) % Eos % (Auto) % Baso % (Auto) % Neut # (Auto) (1.40-6.50) K/uL Lymph # (Auto) (1.2-3.4) K/uL Dane # (Auto) (0.11-0.59) K/uL Eos # (Auto) (0-0.50) K/uL Baso # (Auto) (0-0.2) K/uL Immature Gran # (Auto) (0.01-0.20) K/uL Absolute Nucleated RBC (0-0.12) K/uL Nucleated RBC % (auto) % Polychromasia Hypochromasia Echinocytes Acanthocytes (Spur) ESR 30 (0-30) mm/hr Sodium (136-145) mmol/L Potassium 6.2 H* (3.5-5.1) mmol/L Chloride (98-107) mmol/L Carbon Dioxide (21-32) mmol/L Anion Gap (3-11) BUN (6-23) mg/dl Creatinine (0.6-1.2) mg/dl Est Cr Clr Drug Dosing ml/min Est GFR ( Amer) ml/min Est GFR (Non-Af Amer) ml/min BUN/Creatinine Ratio (10-20) Glucose (70-99(Fasting)) mg/dl Lactate 3.9 H* (0.4-2.0) mmol/L Calcium (8.5-10.1) mg/dl Total Bilirubin (0.2-1.0) mg/dl AST (13-39) U/L ALT (7-52) U/L Alkaline Phosphatase (34-104) U/L Troponin I High Sens (0-14) pg/ml C-Reactive Protein 1.32 H (0-0.5) mg/dl B-Natriuretic Peptide (0-100) pg/ml Total Protein (6.0-8.3) gm/dl Albumin (3.4-5.0) gm/dl Globulin (2.5-4.0) gm/dl Albumin/Globulin Ratio (0.9-2) Procalcitonin (0-0.5) ng/ml Urine Color Urine Appearance (Clear) Urine pH (4.5-7.5) Ur Specific [place] (1.000-1.030) Urine Protein (Negative) Urine Glucose (UA) (Negative) Urine Ketones (Negative) Urine Blood (Negative) Urine Nitrite (Negative) Urine Bilirubin (Negative) Urine Urobilinogen (Negative) Ur Leukocyte Esterase (Negative) Urine WBC (Auto) (0-5) /hpf Urine RBC (Auto) (0-4) /hpf U Hyaline Cast (Auto) (0-5) /lpf U Epithel Cells (Auto) (0-5) /lpf Urine Bacteria (Auto) (Negative) Ur Random Creatinine mg/dl U Random Total Protein (0-11.9) mg/dl Protein/Creatinin Ratio (0-0.2) 08/08/22 Range/Units 10:16 WBC (4.8-10.8) K/ul RBC (4.20-5.40) M/uL Hgb (12.0-16.0) g/dl Hct (37.0-47.0) % MCV (80.0-100.0) fL MCH (25.0-34.0) pg MCHC (32.0-36.0) g/dL RDW Std Deviation (36.4-46.3) fL RDW Coeff of [place] (11.5-14.5) % Plt Count (130-400) K/uL MPV (9.4-12.4) fL Immature Gran % (Auto) % Neut % (Auto) % Lymph % (Auto) % Dane % (Auto) % Eos % (Auto) % Baso % (Auto) % Neut # (Auto) (1.40-6.50) K/uL Lymph # (Auto) (1.2-3.4) K/uL Dane # (Auto) (0.11-0.59) K/uL Eos # (Auto) (0-0.50) K/uL Baso # (Auto) (0-0.2) K/uL Immature Gran # (Auto) (0.01-0.20) K/uL Absolute Nucleated RBC (0-0.12) K/uL Nucleated RBC % (auto) % Polychromasia Hypochromasia Echinocytes Acanthocytes (Spur) ESR (0-30) mm/hr Sodium (136-145) mmol/L Potassium (3.5-5.1) mmol/L Chloride (98-107) mmol/L Carbon Dioxide (21-32) mmol/L Anion Gap (3-11) BUN (6-23) mg/dl Creatinine (0.6-1.2) mg/dl Est Cr Clr Drug Dosing ml/min Est GFR ( Amer) ml/min Est GFR (Non-Af Amer) ml/min BUN/Creatinine Ratio (10-20) Glucose (70-99(Fasting)) mg/dl Lactate (0.4-2.0) mmol/L Calcium (8.5-10.1) mg/dl Total Bilirubin (0.2-1.0) mg/dl AST (13-39) U/L ALT (7-52) U/L Alkaline Phosphatase (34-104) U/L Troponin I High Sens (0-14) pg/ml C-Reactive Protein (0-0.5) mg/dl B-Natriuretic Peptide (0-100) pg/ml Total Protein (6.0-8.3) gm/dl Albumin (3.4-5.0) gm/dl Globulin (2.5-4.0) gm/dl Albumin/Globulin Ratio (0.9-2) Procalcitonin 0.08 (0-0.5) ng/ml Urine Color Urine Appearance (Clear) Urine pH (4.5-7.5) Ur Specific [place] (1.000-1.030) Urine Protein (Negative) Urine Glucose (UA) (Negative) Urine Ketones (Negative) Urine Blood (Negative) Urine Nitrite (Negative) Urine Bilirubin (Negative) Urine Urobilinogen (Negative) Ur Leukocyte Esterase (Negative) Urine WBC (Auto) (0-5) /hpf Urine RBC (Auto) (0-4) /hpf U Hyaline Cast (Auto) (0-5) /lpf U Epithel Cells (Auto) (0-5) /lpf Urine Bacteria (Auto) (Negative) Ur Random Creatinine mg/dl U Random Total Protein (0-11.9) mg/dl Protein/Creatinin Ratio (0-0.2) Administered Medications Discontinued Medications Dextrose (Dextrose 50% 50 Ml Syringe) 50 ml IV NOW STA Stop: 08/08/22 11:44 Last Admin: 08/08/22 12:27 Dose: 50 ml Documented By: CGK Furosemide (Furosemide Inj 20 Mg/2 Ml Vial) 20 mg IV ONE STA Stop: 08/08/22 11:32 Last Admin: 08/08/22 13:50 Dose: Not Given Documented By: CGK Furosemide (Furosemide 40 Mg/4 Ml Vial) Confirm Administered Dose 40 mg IV .STK- MED ONE Stop: 08/08/22 12:20 Last Admin: 08/08/22 12:26 Dose: 20 mg Documented By: MARCIA Sodium Chloride (Nss 1000ml) 1,000 mls @ 999 mls/hr IV .Q1H1M ONE Stop: 08/08/22 08:35 Last Admin: 08/08/22 10:17 Dose: 999 mls/hr Documented By: ASHISH Cefepime HCl (Maxipime) 2,000 mg in 20 mls @ 5 mls/min IV NOW STA; Protocol Stop: 08/08/22 07:40 Last Admin: 08/08/22 10:15 Dose: 5 mls/min Documented By: ASHISH Insulin Human Regular 10 units (/ Syringe) 10 mls @ 3 mls/sec IV ONE STA Stop: 08/08/22 11:43 Last Admin: 08/08/22 12:28 Dose: 3 mls/sec Documented By: CGK Co-signed By: DRM Sodium Zirconium Cyclosilicate (Sodium Zirconium Cyclosilicate 10 Gm Packet) 10 gm PO ONE STA Stop: 08/08/22 11:36 Last Admin: 08/08/22 12:23 Dose: 10 gm Documented By: CGK Imaging Data Radiologist's Impression: Chest X-Ray 08/08/22 06:39 XR chest 1V portable HISTORY: 81 years-old Female CHF acute shortness of breath with congestive heart failure COMPARISON: Chest radiograph 07/05/2022 TECHNIQUE: AP view of the chest FINDINGS: Cardiac silhouette is enlarged. Left subclavian pacer. Atherosclerosis of the aorta. No pneumothorax. Trace pleural effusions with pulmonary vascular congestion. Degenerative changes of the shoulders and spine. IMPRESSION: 1. Cardiomegaly with pulmonary vascular congestion. 2. Trace pleural effusions. ACT 112: Negative or not required by law. The above report was generated using voice recognition software. It may contain grammatical, syntax or spelling errors. Electronically signed by: James Nickerson M.D. 08/08/2022 7:48 AM Duplex Scan Lower Extremity Artery 08/08/22 07:07 US arterial duplex LE BI CLINICAL HISTORY: leg swelling, pain, decreased pulses COMPARISON STUDY: None. FINDINGS: Scattered calcified plaque within the bilateral lower extremity arterial systems. The right common femoral artery and right superficial femoral artery demonstrate normal velocity monophasic waveforms. Focal occlusion within the mid right superficial femoral artery. There is immediate reconstitution of flow within the distal superficial femoral artery which demonstrates low velocity monophasic waveforms. There are also low velocity monophasic waveforms seen within the right popliteal and right calf arteries without high-grade stenosis or occlusion. Monophasic normal velocity waveforms seen throughout the left lower extremity arterial system. IMPRESSION: 1. Focal occlusion within the mid right superficial femoral artery with immediate reconstitution of flow. 2. No high-grade stenosis or occlusion within the left lower extremity arterial system. 3. Monophasic waveforms seen throughout the bilateral lower extremity arterial systems suggestive of diffuse atherosclerotic disease. ACT 112: Negative or not required by law. Electronically signed by: Artemio Harrison M.D. 08/08/2022 10:13 AM Venous Doppler Study 08/08/22 07:07 BILATERAL LOWER EXTREMITY VENOUS DOPPLER HISTORY: Acute pain and swelling of the lower legs leg swelling and pain COMPARISON STUDY: None. FINDINGS: There is normal compressibility, flow, and augmentation within the bilateral lower extremity deep venous systems. IMPRESSION: No DVT within the right or left lower extremity. ACT 112: Negative or not required by law. Electronically signed by: James Nickerson M.D. 08/08/2022 10:01 AM Discharge Plan Visit Data Chief Complaint: Swelling/Edema to Extremity Stated Complaint: Seeping Leg Wound, Leg Pain ED Provider: Arash Butts Discharge Problem: CHESTER (acute kidney injury), Acute hyperkalemia, Bilateral edema of lower extremity, Lower extremity pain, bilateral
[2022-08-08] MEDS ORDERED: CEFEPIME 2,000 MG/20 ML VIAL IV STA (07:37)
[2022-08-08 07:41] LABS: Acanthocytes 2+; Basophils # (auto) 0.05 K/uL (0-0.2); Basophils % (auto) 0.6 %; Echinocytes 1+; Eosinophils # (auto) 0.06 K/uL (0-0.50); Eosinophils % (auto) 0.7 %; Hypochromasia Present; Immature Granulocytes # (auto) 0.12 K/uL (0.01-0.20); Immature Granulocytes % (auto) 1.4 %; Lymphocytes # (auto) 1.67 K/uL (1.2-3.4); Lymphocytes % (auto) 19.6 %; Monocytes # (auto) 1.01 K/uL (0.11-0.59); Monocytes % (auto) 11.9 %; Neutrophils # (auto) 5.61 K/uL (1.40-6.50); Neutrophils % (auto) 65.8 %; Polychromasia 1+
--- NOTE | 2022-08-08 07:50 | XRay Report ---
XR chest 1V portable HISTORY: 81 years-old Female CHF acute shortness of breath with congestive heart failure COMPARISON: Chest radiograph 07/05/2022 TECHNIQUE: AP view of the chest FINDINGS: Cardiac silhouette is enlarged. Left subclavian pacer. Atherosclerosis of the aorta. No pneumothorax. Trace pleural effusions with pulmonary vascular congestion. Degenerative changes of the shoulders an d spine. IMPRESSION: 1. Cardiomegaly with pulmonary vascular congestion. 2. Trace pleural effusions. ACT 112: Negative or not required by law. The above report was generated using voice recognition software. It may contain grammatical, syntax o r spelling errors. Electronically signed by: James Nickerson M.D. 08/08/2022 7:48 AM
[2022-08-08 08:36] LABS: Troponin I High Sensitivity 11.7 pg/ml (0-14)
--- NOTE | 2022-08-08 10:02 | Ultrasound Report ---
BILATERAL LOWER EXTREMITY VENOUS DOPPLER HISTORY: Acute pain and swelling of the lower legs leg swelling and pain COMPARISON STUDY: None. FINDINGS: There is normal compressibility, flow, and augmentation within the bilateral lower extremit y deep venous systems. IMPRESSION: No DVT within the right or left lower extremity. ACT 112: Negative or not required by law. Electronically signed by: James Nickerson M.D. 08/08/2022 10:01 AM
--- NOTE | 2022-08-08 10:07 | Electrocardiogram Report ---
Test Reason : Blood Pressure : / mmHG Vent. Rate : 100 BPM Atrial Rate : 108 BPM P-R Int : 000 ms QRS Dur : 090 ms QT Int : 380 ms P-R-T Axes : 000 094 174 degrees QTc Int : 490 ms Atrial fibrillation Rightward axis Nonspecific ST and T wave abnormality Prolonged QT Abnormal ECG When compared with ECG of 05-JUL-2022 17:15, Atrial fibrillation has replaced Electronic ventricular pacemaker Vent. rate has increased BY 33 BPM Confirmed by Yosef Lopez ([id number]) on 08/08/2022 10:07:03 AM Referred By: REFERRED SELF Confirmed By:Yosef Lopez
[2022-08-08 10:09] LABS: Appearance Urine Cloudy (Clear); Bacteria Urine Automated Negative (Negative); Bilirubin Urine Negative (Negative); Blood Urine Negative (Negative); Color Urine Dark Yellow; Epithelial Cell Urine Auto >30 /lpf (0-5); Glucose Urine UA Negative (Negative); Ketones Urine Trace (Negative); Leukocyte Esterase Urine Trace (Negative); Nitrite Urine Negative (Negative); Protein Urine 2+ (Negative); RBC Urine Automated 0-4 /hpf (0-4); Specific Gravity Urine 1.021 (1.000-1.030); Urobilinogen Urine Negative (Negative)
--- NOTE | 2022-08-08 10:16 | Ultrasound Report ---
US arterial duplex LE BI CLINICAL HISTORY: leg swelling, pain, decreased pulses COMPARISON STUDY: None. FINDINGS: Scattered calcified plaque within the bilateral lower extremity arterial systems. The right common femoral artery and right superficial femoral artery demonstrate normal velocity monophasic wa veforms. Focal occlusion within the mid right superficial femoral artery. There is immediate reconsti tution of flow within the distal superficial femoral artery which demonstrates low velocity monophasi c waveforms. There are also low velocity monophasic waveforms seen within the right popliteal and rig ht calf arteries without high-grade stenosis or occlusion. Monophasic normal velocity waveforms seen throughout the left lower extremity arterial system. IMPRESSION: 1. Focal occlusion within the mid right superficial femoral artery with immediate reconstitution of f low. 2. No high-grade stenosis or occlusion within the left lower extremity arterial system. 3. Monophasic waveforms seen throughout the bilateral lower extremity arterial systems suggestive of diffuse atherosclerotic disease. ACT 112: Negative or not required by law. Electronically signed by: Artemio Harrison M.D. 08/08/2022 10:13 AM
[2022-08-08 10:19] LABS: Cast Urine Automated 0 /lpf (0-5)
--- NOTE | 2022-08-08 10:45 | History & Physical Report ---
Date of Service August 08, 2022 Assessment & Plan (1) Acute hyperkalemia: Plan: Repeat potassium continues to be elevated. This is most likely secondary to her acute renal failure Will treat with insulin and glucose and follow serial labs Will also order Lokelma X [address] changes on EKG Admit and follow on telemetry (2) Acute kidney injury superimposed on CKD: Plan: Patient appears to be fluid overloaded. She has been receiving 40 mg of Lasix daily. Renal ultrasound performed 03/05/2022 showed atrophic kidneys without hydronephrosis. Bladder was not well visualized. Gallbladder wall appeared to be thickened and edematous at that time. There is no shadowing renal calculi. No perinephric fluid was identified. Will follow serial labs (3) Bilateral edema of lower extremity: Plan: No evidence of DVT on today's Doppler Lower extremity arterial duplex shows some delay but complete reconstitution Palpable pulses on posterior tibialis arteries bilaterally No evidence of significant cellulitis Continue to diurese judiciously secondary to CHESTER on CKD (4) CHF (congestive heart failure): Plan: Chronic history of diuretics. Prior to discharge had patient on furosemide twice daily. She was then discharged from [facility] by Dr. Rivas on 40 mg daily Most likely, the patient needs diuresis twice daily Pro BNP is elevated above 30,000 Will give 20 mg of IV Lasix to follow blood pressure and fluid output Adrian catheter is in place Strict I's and O's (5) T2DM (type 2 diabetes mellitus): Plan: Most recent A1c is 6.9% Due to acute illness, will hold all of patient's outpatient medications and place her on NovoLog sliding scale insulin with aggressive correction factor Will request glycemic consult from pharmacy to follow sugars closely BSG AC at bedtime Continue with diabetic diet (6) Sepsis: Plan: Lactic acid is elevated the patient does not appear clinically septic WBC is not elevated Procalcitonin is negative Elevated lactic acid is most likely due to acute renal failure Will continue to follow serial labs Patient does not appear to need antibiotic therapy at this time Follow closely (7) Hypertension: Plan: Review of patient's outpatient medication includes metoprolol succinate 100 mg twice daily, Entresto 24/26 twice daily, losartan 25 mg daily Hold Entresto and Losartan. Continue Toprol XL BID At this point, soft blood pressures are probably due to overtreatment with outpatient medications Admit to telemetry. Daily EKG x2 Troponin is within normal limits 11.7 PG/mL (8) COPD (chronic obstructive pulmonary disease): Plan: Patient reports a 90-cezv-apoy smoking history. She quit in the Patient is reported have COPD with no findings of pulmonary function tests Patient is on fluticasone/vilanterol 200/25 mcg (Breo Ellipta) Chronic respiratory failure with hypoxia requiring supplemental oxygen Continue the Breo Ellipta while inpatient No acute respiratory complaints and no hypoxia with supplemental oxygen on admission (9) Acute respiratory failure with hypoxia: Plan: Patient is on chronic supplemental oxygen 2 L/min via nasal cannula Reports of COPD with no PFTs Patient reports that she has been on oxygen for some time Continue supplemental oxygen to maintain SPO2 greater than 90% (10) Atrial fibrillation with rapid ventricular response: Plan: Patient currently is in atrial fibrillation with a EKG but no complaints of palpitations or chest pain QTC is 490 ms Patient is on metoprolol succinate ER 100 mg p.o. twice daily Patient is also anticoagulated with Eliquis 2.5 mg p.o. twice daily Plan Plan discussed with Dr. Easton Nicholas. Please refer to his addendum for further corrections and additions We will continue patient on apixaban 2.5 mg p.o. twice daily for DVT prophylaxis Hold IV fluids at this time but maintain 2 peripheral IVs History of Present Illness Chief Complaint: Lower extremity edema Primary Care Provider[facility] Attending: Dr. Nicholas This is an 81-year-old female with complicated past medical history and multiple admissions. She presents with lower extremity edema and is negative for DVT. Patient does have peripheral arterial disease and on imaging this morning does have reconstitution and no evidence of lack of flow. She has a elevated proBNP of 3213, lactic acid is greater than 4, she is in atrial fibrillation on EKG, creatinine has tripled and is currently 3.43, potassium was elevated at 6.3. QTC is 490 ms. No peak T waves on EKG. Hemodynamically, patient appears to be stable at this time. Patient is chronically anticoagulated with apixaban twice daily for her atrial fibrillation. Pacemaker is present on CXR. She does have history of presentations similar to this in the past requiring pressors. Patient is hard of hearing but responds appropriately. Patient reports that for the last 4 days she has had increased pain in her bilateral lower extremities. She reports that they burn and that she has pinpoint pain with light palpation. Unable to tolerate sheet or blanket on an kles or feet. No open wounds or injury per her report. Patient denies any fever, chills, sweats, rigors. She does state that her feet are always cold. She has had some nausea lately but no vomiting. She also reports watery stool for the last 3 to 4 days. Allergies Allergy/AdvReac Type Severity Reaction Status Date / Time Penicillins AdvReac Intermediate GI SYMPTOMS Verified 07/05/22 21:01 Home Medications Medication Instructions Recorded Confirmed Type cyanocobalamin (vitamin B-12) 500 1,000 mcg PO QAM #30 tabs 02/13/22 08/08/22 Rx mcg tablet atorvastatin 40 mg tablet 40 mg PO DAILY #90 tabs 03/19/22 08/08/22 Rx fluoxetine 20 mg capsule 20 mg PO DAILY #90 caps 03/19/22 08/08/22 Rx fluticasone furoate 200 1 inh inhalation DAILY #90 ea 03/19/22 08/08/22 Rx mcg-vilanterol 25 mcg/dose inhalation powder furosemide 40 mg tablet (Lasix) 40 mg PO DAILY #90 tabs 03/19/22 08/08/22 Rx metformin 500 mg tablet 500 mg PO BID #180 tabs 03/19/22 08/08/22 Rx omeprazole 20 mg capsule,delayed 20 mg PO DAILY #90 caps 03/19/22 08/08/22 Rx release metoprolol succinate 100 mg 100 mg PO Q12H #180 tabs 03/30/22 08/08/22 Rx tablet,extended release 24 hr montelukast 10 mg tablet 10 mg PO DAILY #90 tabs 04/26/22 08/08/22 Rx apixaban 5 mg tablet (Eliquis) 2.5 mg PO BID 08/08/22 08/08/22 History docusate sodium 100 mg capsule 100 mg PO DAILY 08/08/22 08/08/22 History (Colace) losartan 25 mg tablet 25 mg PO DAILY 08/08/22 08/08/22 History sacubitril 24 mg-valsartan 26 mg 1 tab PO BID 08/08/22 08/08/22 History tablet (Entresto) zafirlukast 10 mg tablet 10 mg PO BID 08/08/22 08/08/22 History Past Med/Surg History Medical History (Updated 08/08/22 @ 11:48 by Ab Mcfadden PA-C) Acute respiratory failure with hypoxia Anxiety Atrial fibrillation CKD stage G3b/A3, GFR 30-44 and albumin creatinine ratio >300 mg/g COPD (chronic obstructive pulmonary disease) Diabetes mellitus Hyperlipidemia Hypertension T2DM (type 2 diabetes mellitus) Surgical History No pertinent past surgical history S/P cataract extraction Status post cardiac pacemaker procedure Family History Other Colorectal cancer Hypertension Kidney disease Lung disease Prostate cancer Denies family history of Breast cancer Social History Smoking Status: Never smoker Cigarettes Per Day: smoked for 60 years; Second Hand Exposure: Yes; Hx Alcohol Use: No Hx Substance Use: No Preferred Language: Djiboutian Communication Ability: Effective 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 Beliefs That Will Affect Care: None marital status: / Current Living Situation: [facility] current occupational status: retired Feels Safe at Home: Yes Safety Concerns: Feels Safe At This Time caffeine: No Dental Care, Regularly: Yes Seatbelt Use: always Sunscreen Use: No Assistive Devices: Cane, Oxygen - Continuous and Walker Review of Systems Review of Systems: A total of 10 systems was reviewed and is negative other than as listed in the HPI Physical Exam Physical Exam: GENERAL : No acute distress EYES: No icterus, gaze conjugate NOSE: No evidence of epistaxis MOUTH: No lesions or candidiasis NECK: Supple. No stridor LUNGS: Clear to auscultation bilaterally. No rales or rhonchi. No bronchospasm appreciated. BACK: No CVA tenderness HEART: Irregular, irregular. EKG with atrial fibrillation. Rate is currently 102 bpm ABDOMEN: Soft, NT, ND, BS Present EXTREMITIES: No LE edema, pedal pulses intact and equal. Bilateral posterior tibialis pulses are intact. Difficulty finding dorsalis pulses. Good radial pulses bilaterally. Some minimal oozing. There is a bandage over the left anterior og that appears to be dry and intact. Sensation is intact to all 5 toes on each foot. NEURO: A&OX3. Extremely hard of hearing. Right ear seems to be better. Comprehension appropriate when she can hear you. Moves all extremities spontaneously and to command. No slurred speech. No facial droop. Tongue is midline. Pupils equal round and reactive light. No acute focal deficits appreciated. Results & Data Results & Data ([facility]) Vital Signs (Past 12 Hours) Vital Signs Temp Pulse Pulse Resp BP BP Pulse Ox 08/08/22 09:00 102 H 18 98/62 L 08/08/22 07:15 100 H 18 100/63 97 08/08/22 05:45 107 H 22 98 08/08/22 05:37 98/46 L 08/08/22 05:37 100 H 15 08/08/22 05:30 106 H 17 100 08/08/22 05:15 96 H 16 100 08/08/22 05:00 125 H 14 100 08/08/22 04:56 99 H 17 100 08/08/22 04:55 97/64 L 08/08/22 04:43 36.7 C 102 H 16 97/64 L 100 O2 Del Method O2 Flow Rate 08/08/22 09:00 08/08/22 07:15 Nasal Cannula 2 08/08/22 05:45 Nasal Cannula 2 08/08/22 05:37 08/08/22 05:37 08/08/22 05:30 Nasal Cannula 2 08/08/22 05:15 Nasal Cannula 2 08/08/22 05:00 Nasal Cannula 2 08/08/22 04:56 Nasal Cannula 2 08/08/22 04:55 08/08/22 04:43 Nasal Cannula 2 Critical Care Results & Data Vital Signs (Past 12 Hours) Vital Signs Temp Pulse Pulse Resp BP BP Pulse Ox 08/08/22 09:00 102 H 18 98/62 L 08/08/22 07:15 100 H 18 100/63 97 08/08/22 05:45 107 H 22 98 08/08/22 05:37 98/46 L 08/08/22 05:37 100 H 15 08/08/22 05:30 106 H 17 100 08/08/22 05:15 96 H 16 100 08/08/22 05:00 125 H 14 100 08/08/22 04:56 99 H 17 100 08/08/22 04:55 97/64 L 08/08/22 04:43 36.7 C 102 H 16 97/64 L 100 O2 Del Method O2 Flow Rate 08/08/22 09:00 08/08/22 07:15 Nasal Cannula 2 08/08/22 05:45 Nasal Cannula 2 08/08/22 05:37 08/08/22 05:37 08/08/22 05:30 Nasal Cannula 2 08/08/22 05:15 Nasal Cannula 2 08/08/22 05:00 Nasal Cannula 2 08/08/22 04:56 Nasal Cannula 2 08/08/22 04:55 08/08/22 04:43 Nasal Cannula 2 Lab & Micro Results (Past 24 Hours) RBC 4.17 M/uL (4.20-5.40) L 08/08/22 WBC 8.52 K/ul (4.8-10.8) 08/08/22 Hgb 9.7 g/dl (12.0-16.0) L 08/08/22 Hct 34.5 % (37.0-47.0) L 08/08/22 MCV 82.7 fL (80.0-100.0) 08/08/22 MCH 23.3 pg (25.0-34.0) L 08/08/22 MCHC 28.1 g/dL (32.0-36.0) L 08/08/22 RDW Standard Deviation 57.2 fL (36.4-46.3) H 08/08/22 RDW Coefficient of Variation 19.3 % (11.5-14.5) H 08/08/22 Plt Count 300 K/uL (130-400) 08/08/22 MPV 12.3 fL (9.4-12.4) 08/08/22 Nucleated Red Blood Cells % (auto) 0.2 % 08/08 Nucleated RBC Absolute Count (auto) 0.02 K/uL (0-0.12) 07/12 Neutrophils (%) (Auto) 65.8 % 08/08/22 Lymphocytes (%) (Auto) 19.6 % 08/08/22 Monocytes # (Auto) 1.01 K/uL (0.11-0.59) H 08/08/22 Eosinophils # (Auto) 0.06 K/uL (0-0.50) 08/08/22 Immature Granulocyte % (Auto) 1.4 % 08/08/22 Neutrophils # (Auto) 5.61 K/uL (1.40-6.50) 08/08/22 Lymphocytes # (Auto) 1.67 K/uL (1.2-3.4) 08/08/22 Monocytes # (Auto) 1.01 K/uL (0.11-0.59) H 08/08/22 Eosinophils # (Auto) 0.06 K/uL (0-0.50) 08/08/22 Basophils # (Auto) 0.05 K/uL (0-0.2) 08/08/22 Immature Granulocyte # (Auto) 0.12 K/uL (0.01-0.20) 3 Polychromasia 1+ 08/08/22 Hypochromasia Present 08/08/22 Echinocytes 1+ 08/08/22 Acanthocytes 2+ 08/08/22 Na 139 mmol/L (136-145) 08/08/22 K 5.8 mmol/L (3.5-5.1) H 08/08/22 Cl 101 mmol/L (98-107) 08/08/22 CO2 22 mmol/L (21-32) 08/08/22 Anion Gap 16 (3-11) H 08/08/22 BUN 69 mg/dl (6-23) H 08/08/22 Creatinine 3.54 mg/dl (0.6-1.2) H 08/08/22 Estimated GFR ( Amer) 13.1 ml/min 08/08/22 Estimated GFR (Non-Af Amer) 11.3 ml/min 08/08/22 BUN/Creatinine Ratio 19.5 (10-20) 08/08/22 Glu 71 mg/dl (70-99(Fasting)) 08/08/22 Ca 9.4 mg/dl (8.5-10.1) 08/08/22 Total Bilirubin 0.6 mg/dl (0.2-1.0) 08/08/22 AST 16 U/L (13-39) 08/08/22 ALT 13 U/L (7-52) 08/08/22 Alkaline Phosphatase 103 U/L (34-104) 08/08/22 TP 6.9 gm/dl (6.0-8.3) 08/08/22 Albumin 3.9 gm/dl (3.4-5.0) 08/08/22 Globulin 3.0 gm/dl (2.5-4.0) 08/08/22 Albumin/Globulin Ratio 1.3 (0.9-2) 08/08/22 Mg 1.6 mg/dl (1.7-2.4) L 08/08/22 12:05 Calcium Level 9.4 mg/dl (8.5-10.1) 08/08/22 18:40 Diagnostic Findings (Past 24 Hours) Chest X-Ray 08/08/22 06:39 XR chest 1V portable HISTORY: 81 years-old Female CHF acute shortness of breath with congestive heart failure COMPARISON: Chest radiograph 07/05/2022 TECHNIQUE: AP view of the chest FINDINGS: Cardiac silhouette is enlarged. Left subclavian pacer. Atherosclerosis of the aorta. No pneumothorax. Trace pleural effusions with pulmonary vascular congestion. Degenerative changes of the shoulders and spine. IMPRESSION: 1. Cardiomegaly with pulmonary vascular congestion. 2. Trace pleural effusions. ACT 112: Negative or not required by law. The above report was generated using voice recognition software. It may contain grammatical, syntax or spelling errors. Electronically signed by: James Nickerson M.D. 08/08/2022 7:48 AM Duplex Scan Lower Extremity Artery 08/08/22 07:07 arterial duplex LE CLINICAL HISTORY: leg swelling, pain, decreased pulses COMPARISON STUDY: None. FINDINGS: Scattered calcified plaque within the bilateral lower extremity arterial systems. The right common femoral artery and right superficial femoral artery demonstrate normal velocity monophasic waveforms. Focal occlusion within the mid right superficial femoral artery. There is immediate reconstitution of flow within the distal superficial femoral artery which demonstrates low velocity monophasic waveforms. There are also low velocity monophasic waveforms seen within the right popliteal and right calf arteries without high-grade steno sis or occlusion. Monophasic normal velocity waveforms seen throughout the left lower extremity arterial system. IMPRESSION: 1. Focal occlusion within the mid right superficial femoral artery with immediate reconstitution of flow. 2. No high-grade stenosis or occlusion within the left lower extremity arterial system. 3. Monophasic waveforms seen throughout the bilateral lower extremity arterial systems suggestive of diffuse atherosclerotic disease. ACT 112: Negative or not required by law. Electronically signed by: Artemio Harrison M.D. 08/08/2022 10:13 AM Venous Doppler Study 08/08/22 07:07 BILATERAL LOWER EXTREMITY VENOUS DOPPLER HISTORY: Acute pain and swelling of the lower legs leg swelling and pain COMPARISON STUDY: None. FINDINGS: There is normal compressibility, flow, and augmentation within the bilateral lower extremity deep venous systems. IMPRESSION: No DVT within the right or left lower extremity. ACT 112: Negative or not required by law. Electronically signed by: James Nickerson M.D. 08/08/2022 10:01 AM RT Ventilator Mngmt (Last Documented) Ventilator Ordered Settings Respiratory Rate 18 08/08/22 09:00 Ventilator - PT Measurements Respiratory Rate 18 Code Status & VTE Plan VTE Prophylaxis Plan VTE Prophylaxis will be ordered: Yes Supervising Physician Co-Signing Physician Notes I personally saw and examined the patient. I verified all choi points and agree with Ab Mcfadden PA-C with the following exceptions and/or additions: 81-year-old female presents to the ER with worsening leg swelling and shortness of breath however she reports this is not as bad as her last admission. O/E Increased rate, irregular rhythm, no murmurs, Chest bibasal crackles, no wheez ing, Abdo SNT, Leg edema tight 2+ equal pitting b/l A/P CHESTER - Suspect this is mainly due to inappropriate combination of losartan and Entresto as well as lack of diuretics. She exams relatively euvolemic. However this was also the case during her last admission when her right heart cath showed she was hypokalemic and she improved with increased diuretics. BNP increased from her last admission although she reports her leg swelling and shortness of breath are not as bad as then. Stop NSS, this was discontinued after 50ml only had gone through. Given relative hypotension will start on low dose diuretics with Lasix 20mg IV. Can be more aggressive once the losartan and Entresto leave her system and BP increases. Hyperkalemia - secondary to CHESTER + losartan + entresto, insulin/dextrose + Lokelma given. Will repeat labs following these interventions to make sure it is coming down. A. fib RVR - restart her ususal metoprolol succinate, will switch anticoagulation to VTE prophylaxis with heparin 5000 units SQ while in CHESTER. Plan to switch back to Eliquis once renal failure resolves. Disagree with the diagnosis of sepsis as above, no source of infection at this time. PG Care Time/CCT Total # of Minutes Spent Total Time Spent with Patient: Total time spent is greater than 50% in coordination of care (as documented) at patient's floor/unit and/or counseling patient: Coding Level of Care Code 15759 INT INP/OBS CARE 3/75MIN Diagnoses Acute hyperkalemia E87.5 Acute kidney injury superimposed on CKD N17.9; N18.9 Bilateral edema of lower extremity R60.0 CHF (congestive heart failure) I50.9 T2DM (type 2 diabetes mellitus) E11.9 Sepsis A41.9 Hypertension I10 COPD (chronic obstructive pulmonary disease) J44.9 Acute respiratory failure with hypoxia J96.01 Atrial fibrillation with rapid ventricular response I48.91
[2022-08-08 11:25] LABS: Potassium 6.2 mmol/L (3.5-5.1)
[2022-08-08 11:26] LABS: C Reactive Protein 1.32 mg/dl (0-0.5)
[2022-08-08] MEDS ORDERED: FUROSEMIDE INJ 20 MG/2 ML VIAL IV STA ×2 (11:31→23:13)
[2022-08-08] MEDS ORDERED: SODIUM ZIRCONIUM CYCLOSILICATE 10 GM PACKET PO STA ×3 (11:35→19:38)
[2022-08-08] MEDS ORDERED: INSULIN HUMAN REGULAR PER UNIT 10 UNITS in SYRINGE 9.9 ML IV STA ×3 (11:42→19:44)
[2022-08-08] MEDS ORDERED: DEXTROSE 50% 50 ML SYRINGE IV STA ×3 (11:43→19:38)
[2022-08-08 11:54] LABS: Total Protein Urine Random 129.3 mg/dl (0-11.9)
[2022-08-08 11:59] LABS: Creatinine Urine Random 154.9 mg/dl; Protein Creatinine Ratio Urine 0.8 (0-0.2)
[2022-08-08] MEDS ORDERED: FUROSEMIDE 40 MG/4 ML VIAL IV ONE (12:19)
[2022-08-08] MEDS ORDERED: DEXTROSE 50% 50 ML SYRINGE IV PRN (16:00)
[2022-08-08] MEDS ORDERED: CARBOHYDRATES FOR HYPOGLYCEMIA PO PRN (16:00)
[2022-08-08] MEDS ORDERED: METOPROLOL SUCC 50MG EXT REL TAB PO SCH ×2 (16:00→21:00)
[2022-08-08] MEDS ORDERED: FERROUS SULFATE 325 MG TAB PO SCH (16:00)
[2022-08-08] MEDS ORDERED: GLUCOSE 10 TAB/TUBE PO PRN (16:00)
[2022-08-08] MEDS ORDERED: GLUCAGON FOR INJ 1 MG VIAL SQ PRN (16:00)
[2022-08-08] MEDS ORDERED: ALUMINUM/MAGNESIUM SUSP 30 ML UDC PO PRN (16:00)
[2022-08-08] MEDS ORDERED: POLYETHYLENE (MIRALAX) 17 GM PACK PO PRN (16:00)
[2022-08-08] MEDS ORDERED: ONDANSETRON INJ 2 MG/ML 2 ML VIAL IV PRN (16:00)
[2022-08-08] MEDS ORDERED: MAGNESIUM HYDROXIDE SUSP 30 ML UDC PO PRN (16:00)
[2022-08-08] MEDS ORDERED: GLUCOSE 40% GEL 15 GM TUBE PO PRN (16:00)
[2022-08-08] MEDS ORDERED: PHARMACY GLYCEMIC MGMT CONSULT PRN (16:00)
[2022-08-08] MEDS: INSULIN ASPART PER UNIT SC SCH ×2 (17:51→21:44)
[2022-08-08] MEDS: FLUTICASONE/VILANTEROL 200/25MCG 14 PUFFS/INHALER INH SCH (17:52)
[2022-08-08 17:55] LABS: Potassium Random Urine 48.2 mmol/L
[2022-08-08 18:02] LABS: Calcium 9.8 mg/dl (8.5-10.1); Creatinine Clr Calc Pharmacy 12.7 ml/min; Magnesium 1.6 mg/dl (1.7-2.4); Potassium 6.3 mmol/L (3.5-5.1)
[2022-08-08 18:04] LABS: Creatinine Urine Random 131.1 mg/dl
[2022-08-08 18:09] LABS: Est GFR (African American) 13.4 ml/min; Est GFR (Non-African American) 11.6 ml/min
[2022-08-08] MEDS ORDERED: HYDROmorphone INJ 0.5 MG/0.5 ML SYR IV PRN (18:39)
[2022-08-08] MEDS ORDERED: METOPROLOL SUCC 50MG EXT REL TAB PO STA ×2 (18:40→21:56)
[2022-08-08 19:17] LABS: Calcium 9.4 mg/dl (8.5-10.1); Potassium 5.8 mmol/L (3.5-5.1)
[2022-08-08 19:23] LABS: BUN Creatinine Ratio 19.5 (10-20); Creatinine Clr Calc Pharmacy 12.3 ml/min; Est GFR (African American) 13.1 ml/min; Est GFR (Non-African American) 11.3 ml/min
[2022-08-08] MEDS ORDERED: APIXABAN 2.5 MG TAB PO SCH (21:00)
[2022-08-08] MEDS: LORazepam 0.5 MG TAB PO PRN (22:25)
[2022-08-08] MEDS: MONTELUKAST SODIUM 10 MG TABLET PO SCH (22:25)
--- NOTE | 2022-08-08 23:28 | Communication Note ---
Date of Service: August 08, 2022 Unfortunately some initial confusion with repeat labs and they were not taken at 16:45 when ordered, I am unclear what happened but suspect the stat labs were performed on a tube taken at 12:05. Labs re-taken at 18:40 with K 5.8, additional insulin 10 units/dextrose 50ml given along with Lokelma 10g. Metoprolol 100mg was not given due to parameters of holding for sBP < 100. Re- ordered 50mg as a stat dose as likely her BP will improve assuming the a. fib is inappropriately fast rather than due to hypovolemia. Re-dosed back to her normal dose @ 22:00 as indeed her BP did improve. NSS 1L bolus ordered by the ER which I physically stopped and discontinued appears to have been charted as given. I suspect she was still hooked up to it on the floor and it was restarted despite the order discontinued. BP currently 103/64. Additional Lasix 20mg IV to be given now. As Losartan and Entresto come out of her system we should be able to be more aggressive tomorrow with diuretics and will preliminary prescribe Lasix 40mg IV BID. Previous admission she also required thiazide diuretics but will defer that to provider tomorrow.
[2022-08-08] MEDS: HEPARIN SOD 5,000 UNIT/0.5 ML VIAL SQ SCH (23:45)
[2022-08-09] MEDS ORDERED: CAPSAICIN CR 0.075% 60 GM TUBE EXT PRN (00:02)
[2022-08-09] MEDS: EUCERIN CR 120 GM JAR EXT PRN ×2 (05:06→09:04)
[2022-08-09 06:37] LABS: Hematocrit (blood only) 33.8 % (37.0-47.0); Hemoglobin 9.7 g/dl (12.0-16.0); Mean Corpuscular Hemoglobin 23.7 pg (25.0-34.0); Mean Corpuscular Hgb Conc 28.7 g/dL (32.0-36.0); Mean Corpuscular Volume 82.4 fL (80.0-100.0); Mean Platelet Volume 12.4 fL (9.4-12.4); Nucleated RBC # (auto) 0.04 K/uL (0-0.12); Nucleated RBC % (auto) 0.4 %; Platelet Count 235 K/uL (130-400); RDW Coefficient of Variation 19.3 % (11.5-14.5); RDW Standard Deviation 56.7 fL (36.4-46.3); White Blood Count 10.69 K/ul (4.8-10.8)
[2022-08-09 06:40] LABS: BUN Creatinine Ratio 19.3 (10-20); Calcium 9.5 mg/dl (8.5-10.1); Creatinine Clr Calc Pharmacy 11.8 ml/min; Est GFR (African American) 12.7 ml/min; Potassium 5.5 mmol/L (3.5-5.1)
--- NOTE | 2022-08-09 07:39 | XRay Report ---
XR chest 1V portable CLINICAL HISTORY: CHF, CHESTER COMPARISON STUDY: Chest radiograph August 08, 2022. FINDINGS: Left subclavian pacemaker is in place. Moderate cardiomegaly is unchanged. There is no pneu mothorax. Trace right pleural effusion. Pulmonary vascular congestion is unchanged. IMPRESSION: No change in appearance of the chest. Cardiomegaly with pulmonary vascular congestion and trace right pleural effusion. ACT 112: Negative or not required by law. Electronically signed by: Stevan Ch M.D. 08/09/2022 7:38 AM
[2022-08-09] MEDS: INSULIN ASPART PER UNIT SC SCH ×4 (08:47→20:28)
[2022-08-09] MEDS ORDERED: FUROSEMIDE 40 MG/4 ML VIAL IV SCH ×2 (09:00)
[2022-08-09] MEDS: MAGNESIUM SULFATE / D5W 1 GM/100 ML BAG IV SCH ×2 (09:03→11:10)
[2022-08-09] MEDS: HEPARIN SOD 5,000 UNIT/0.5 ML VIAL SQ SCH ×2 (09:04→20:07)
[2022-08-09] MEDS: METOPROLOL SUCC 50MG EXT REL TAB PO SCH ×2 (09:05→21:01)
[2022-08-09] MEDS: PANTOprazole 40 MG TAB PO SCH (09:05)
[2022-08-09] MEDS: FLUoxetine HCL 20 MG CAP PO SCH (09:06)
[2022-08-09] MEDS: FLUTICASONE/VILANTEROL 200/25MCG 14 PUFFS/INHALER INH SCH (09:06)
[2022-08-09] MEDS: ATORVASTATIN 40 MG TAB PO SCH (09:06)
--- NOTE | 2022-08-09 09:23 | Nephrology Consultation ---
Date of Consultation August 09, 2022 Assessment & Plan (1) CHESTER (acute kidney injury): Oliguric. No emergent indication for dialysis. Clinical presentation consistent with intravascular volume depletion and decreased EAV. IVF challenge ordered in attempt to encourage urine output. Adrian intact. Kidneys unobstructed on imaging. Urine acellular. Medications appropriate for kidney dysfunction. Document strict I/O's. Repeat metabolic profile this afternoon and tomorrow AM. 1/2 NS + 75 mEq NaHCO3 @ 150 ml/hr. Hold metformin and Entresto. (2) Acute hyperkalemia: Remains on tele monitor. HCO3 replacement ordered. IVF to encourage urine output. Low potassium diet. Repeat labs ordered. (3) CKD stage G3b/A3, GFR 30-44 and albumin creatinine ratio >300 mg/g: Baseline creatinine 1.3-1.5 mg/dL. MACR 308 mcg/mg. Close outpatient follow up will be required. (4) Bilateral edema of lower extremity: Chronic. Duplex reviewed. Noted history of R CHF and pulmonary hypertension. Diuretics held this AM. History of Present Illness Reason for Consultation: "worsening CHESTER, hyperK" Requesting Physician: Gene Figueroa Attending Physician: Sudheer Valentino DO History of Present Illness Coco Sanchez is a 81 year-old female with HFrEF, paroxysmal atrial fibrillation, SSS s/p pacemaker placement, COPD, pulmonary hypertension, DMII, hypertension, hyperlipidemia, peripheral arterial disease, morbid obesity, and CKD. Baseline creatinine ~1.3 mg/dL. Microalbumin/creatinine 302 mcg/mg. Coco presented to the ER at [facility] yesterday for evaluation of LE edema. Coco was admitted with suspected acute on chronic CHF and acute kidney injury. She initially received IVF followed by furosemide 20 mg. Nephrology consultation requested this AM for notably decreased urine output and hyperkalemia. US demonstrates the kidneys to be unobstructed. Urine microscopy is acellular. Adrian is intact. IV furosemide and Lokelma were provided overnight. Entresto and metformin have been held. Records from multiple recent hospitalizations reviewed. BP remains low this AM. Telemetry demonstrating atrial fibrillation at 100 bpm. Coco was resting comfortably in bed. No fevers or chills. She reports feeling very dry/dehydrated. No chest pain or palpitations. No shortness of breath. She notes that edema has notably improved. Coco states that she has a good friend on dialysis in [place]. She knows a little bit about the treatments. She would be agreeable to hemodialysis if needed. Allergies Allergy/AdvReac Type Severity Reaction Status Date / Time Penicillins AdvReac Intermediate GI SYMPTOMS Verified 07/05/22 21:01 Home Medications Medication Instructions Recorded Confirmed Type cyanocobalamin (vitamin B-12) 500 1,000 mcg PO QAM #30 tabs 02/13/22 08/08/22 Rx mcg tablet atorvastatin 40 mg tablet 40 mg PO DAILY #90 tabs 03/19/22 08/08/22 Rx fluoxetine 20 mg capsule 20 mg PO DAILY #90 caps 03/19/22 08/08/22 Rx fluticasone furoate 200 1 inh inhalation DAILY #90 ea 03/19/22 08/08/22 Rx mcg-vilanterol 25 mcg/dose inhalation powder furosemide 40 mg tablet (Lasix) 40 mg PO DAILY #90 tabs 03/19/22 08/08/22 Rx metformin 500 mg tablet 500 mg PO BID #180 tabs 03/19/22 08/08/22 Rx omeprazole 20 mg capsule,delayed 20 mg PO DAILY #90 caps 03/19/22 08/08/22 Rx release metoprolol succinate 100 mg 100 mg PO Q12H #180 tabs 03/30/22 08/08/22 Rx tablet,extended release 24 hr montelukast 10 mg tablet 10 mg PO DAILY #90 tabs 04/26/22 08/08/22 Rx apixaban 5 mg tablet (Eliquis) 2.5 mg PO BID 08/08/22 08/08/22 History docusate sodium 100 mg capsule 100 mg PO DAILY 08/08/22 08/08/22 History (Colace) losartan 25 mg tablet 25 mg PO DAILY 08/08/22 08/08/22 History sacubitril 24 mg-valsartan 26 mg 1 tab PO BID 08/08/22 08/08/22 History tablet (Entresto) zafirlukast 10 mg tablet 10 mg PO BID 08/08/22 08/08/22 History Patient History Medical History Acute respiratory failure with hypoxia Anxiety Atrial fibrillation CKD stage G3b/A3, GFR 30-44 and albumin creatinine ratio >300 mg/g COPD (chronic obstructive pulmonary disease) Diabetes mellitus Hyperlipidemia Hypertension T2DM (type 2 diabetes mellitus) Surgical History No pertinent past surgical history S/P cataract extraction Status post cardiac pacemaker procedure Family History Other Colorectal cancer Hypertension Kidney disease Lung disease Prostate cancer Denies family history of Breast cancer Social History Smoking Status: Never smoker Cigarettes Per Day: smoked for 60 years; Second Hand Exposure: Yes; Hx Alcohol Use: No Hx Substance Use: No Preferred Language: Greek Communication Ability: Effective Tellers Supervisor Required: No Beliefs That Will Affect Care: None marital status: / Current Living Situation: Jail current occupational status: retired Feels Safe at Home: Yes Safety Concerns: Feels Safe At This Time caffeine: No Dental Care, Regularly: Yes Seatbelt Use: always Sunscreen Use: No Assistive Devices: Cane, Oxygen - Continuous and Walker Review of Systems Review of Systems: All systems reviewed & are unremarkable except as noted in HPI & below Physical Exam Constitutional: well developed, + obese and + frail appearing; no acute distress Eyes: + anicteric sclerae; no corneal abnormality ENMT: Mouth: + lip abnormality and + dry oral mucous membranes Neck: normal visual inspection and trachea midline Respiratory: normal respiratory effort Auscultation: lungs clear to auscultation bilaterally and + diminished lung sounds (left base) Cardiovascular: Rate/Rhythm: + irregularly irregular Heart Sounds: normal S1 and normal S2 Extremities: + edema Musculoskeletal: Extremities: no cyanosis and no clubbing Skin: + turgor decreased; no jaundice Neurologic: Motor/Sensory: no tremor and no asterixis Psychiatric: Orientation: alert and oriented x 3 Results & Data ([facility]) Vital Signs (Past 12 Hours) Vital Signs Temp Pulse Pulse Resp BP Pulse Ox O2 Del Method 08/09/22 07:08 36.5 C 70 16 96/58 L 90 Nasal Cannula 08/08/22 22:26 85 08/09/22 03:07 36.3 C L 99 H 19 92/50 L 100 Nasal Cannula 08/09/22 02:12 Nasal Cannula 08/08/22 23:06 36.2 C L 105 H 17 103/64 100 Nasal Cannula O2 Flow Rate 08/09/22 07:08 2 08/08/22 22:26 08/09/22 03:07 2 08/09/22 02:12 3 08/08/22 23:06 2 Laboratory Results Laboratory Results - last 24 hr 08/08/22 08/08/22 08/08/22 06:35 09:45 09:45 WBC RBC Hgb Hct MCV MCH MCHC RDW Std Deviation RDW Coeff of [place] Plt Count MPV Absolute Nucleated RBC Nucleated RBC % (auto) ESR Sodium Potassium Chloride Carbon Dioxide Anion Gap BUN Creatinine Est Cr Clr Drug Dosing Est GFR ( Amer) Est GFR (Non-Af Amer) BUN/Creatinine Ratio Glucose POC Glucose Lactate 4.5 H* Calcium Magnesium Total Creatine Kinase C-Reactive Protein Procalcitonin Urine Color Dark Yellow Urine Appearance Cloudy A Urine pH 5.0 Ur Specific [place] 1.021 Urine Protein 2+ H Urine Glucose (UA) Negative Urine Ketones Trace H Urine Blood Negative Urine Nitrite Negative Urine Bilirubin Negative Urine Urobilinogen Negative Ur Leukocyte Esterase Trace H Urine WBC (Auto) 1-5 Urine RBC (Auto) 0-4 U Hyaline Cast (Auto) 0 U Epithel Cells (Auto) >30 H Urine Bacteria (Auto) Negative Urine Osmolality Ur Random Creatinine 154.9 U Random Total Protein 129.3 H Ur Random Sodium Ur Random Potassium Ur Random Chloride Ur Random Uric Acid Protein/Creatinin Ratio 0.8 H Nasal Screen MRSA (PCR) SARS-CoV-2, RNA, NAAT 08/08/22 08/08/22 08/08/22 10:12 10:12 10:16 WBC RBC Hgb Hct MCV MCH MCHC RDW Std Deviation RDW Coeff of [place] Plt Count MPV Absolute Nucleated RBC Nucleated RBC % (auto) ESR 30 Sodium Potassium 6.2 H* Chloride Carbon Dioxide Anion Gap BUN Creatinine Est Cr Clr Drug Dosing Est GFR ( Amer) Est GFR (Non-Af Amer) BUN/Creatinine Ratio Glucose POC Glucose Lactate 3.9 H* Calcium Magnesium Total Creatine Kinase C-Reactive Protein 1.32 H Procalcitonin Urine Color Urine Appearance Urine pH Ur Specific [place] Urine Protein Urine Glucose (UA) Urine Ketones Urine Blood Urine Nitrite Urine Bilirubin Urine Urobilinogen Ur Leukocyte Esterase Urine WBC (Auto) Urine RBC (Auto) U Hyaline Cast (Auto) U Epithel Cells (Auto) Urine Bacteria (Auto) Urine Osmolality Ur Random Creatinine U Random Total Protein Ur Random Sodium Ur Random Potassium Ur Random Chloride Ur Random Uric Acid Protein/Creatinin Ratio Nasal Screen MRSA (PCR) SARS-CoV-2, RNA, NAAT 08/08/22 08/08/22 08/08/22 10:16 12:05 12:07 WBC RBC Hgb Hct MCV MCH MCHC RDW Std Deviation RDW Coeff of [place] Plt Count MPV Absolute Nucleated RBC Nucleated RBC % (auto) ESR Sodium 140 Potassium 6.3 H* Chloride 100 Carbon Dioxide 26 Anion Gap 14 H BUN 66 H Creatinine 3.47 H Est Cr Clr Drug Dosing 12.7 Est GFR ( Amer) 13.4 Est GFR (Non-Af Amer) 11.6 BUN/Creatinine Ratio 19.0 Glucose 73 POC Glucose Lactate Calcium 9.8 Magnesium 1.6 L Total Creatine Kinase 38 36 C-Reactive Protein Procalcitonin 0.08 Urine Color Urine Appearance Urine pH Ur Specific [place] Urine Protein Urine Glucose (UA) Urine Ketones Urine Blood Urine Nitrite Urine Bilirubin Urine Urobilinogen Ur Leukocyte Esterase Urine WBC (Auto) Urine RBC (Auto) U Hyaline Cast (Auto) U Epithel Cells (Auto) Urine Bacteria (Auto) Urine Osmolality Ur Random Creatinine U Random Total Protein Ur Random Sodium Ur Random Potassium Ur Random Chloride Ur Random Uric Acid Protein/Creatinin Ratio Nasal Screen MRSA (PCR) SARS-CoV-2, RNA, NAAT 08/08/22 08/08/22 08/08/22 12:07 13:09 15:55 WBC RBC Hgb Hct MCV MCH MCHC RDW Std Deviation RDW Coeff of [place] Plt Count MPV Absolute Nucleated RBC Nucleated RBC % (auto) ESR Sodium Potassium Chloride Carbon Dioxide Anion Gap BUN Creatinine Est Cr Clr Drug Dosing Est GFR ( Amer) Est GFR (Non-Af Amer) BUN/Creatinine Ratio Glucose POC Glucose Lactate 3.9 H* 4.2 H* 4.1 H* Calcium Magnesium Total Creatine Kinase C-Reactive Protein Procalcitonin Urine Color Urine Appearance Urine pH Ur Specific [place] Urine Protein Urine Glucose (UA) Urine Ketones Urine Blood Urine Nitrite Urine Bilirubin Urine Urobilinogen Ur Leukocyte Esterase Urine WBC (Auto) Urine RBC (Auto) U Hyaline Cast (Auto) U Epithel Cells (Auto) Urine Bacteria (Auto) Urine Osmolality Ur Random Creatinine U Random Total Protein Ur Random Sodium Ur Random Potassium Ur Random Chloride Ur Random Uric Acid Protein/Creatinin Ratio Nasal Screen MRSA (PCR) SARS-CoV-2, RNA, NAAT 08/08/22 08/08/22 08/08/22 17:08 17:10 17:10 WBC RBC Hgb Hct MCV MCH MCHC RDW Std Deviation RDW Coeff of [place] Plt Count MPV Absolute Nucleated RBC Nucleated RBC % (auto) ESR Sodium Potassium Chloride Carbon Dioxide Anion Gap BUN Creatinine Est Cr Clr Drug Dosing Est GFR ( Amer) Est GFR (Non-Af Amer) BUN/Creatinine Ratio Glucose POC Glucose 73 Lactate Calcium Magnesium Total Creatine Kinase C-Reactive Protein Procalcitonin Urine Color Urine Appearance Urine pH Ur Specific [place] Urine Protein Urine Glucose (UA) Urine Ketones Urine Blood Urine Nitrite Urine Bilirubin Urine Urobilinogen Ur Leukocyte Esterase Urine WBC (Auto) Urine RBC (Auto) U Hyaline Cast (Auto) U Epithel Cells (Auto) Urine Bacteria (Auto) Urine Osmolality 346 L Ur Random Creatinine 131.1 U Random Total Protein Ur Random Sodium 28 Ur Random Potassium 48.2 Ur Random Chloride 32 Ur Random Uric Acid Protein/Creatinin Ratio Nasal Screen MRSA (PCR) SARS-CoV-2, RNA, NAAT 08/08/22 08/08/22 08/08/22 17:10 17:10 18:40 WBC RBC Hgb Hct MCV MCH MCHC RDW Std Deviation RDW Coeff of [place] Plt Count MPV Absolute Nucleated RBC Nucleated RBC % (auto) ESR Sodium 139 Potassium 5.8 H Chloride 101 Carbon Dioxide 22 Anion Gap 16 H BUN 69 H Creatinine 3.54 H Est Cr Clr Drug Dosing 12.3 Est GFR ( Amer) 13.1 Est GFR (Non-Af Amer) 11.3 BUN/Creatinine Ratio 19.5 Glucose 71 POC Glucose Lactate Calcium 9.4 Magnesium Total Creatine Kinase C-Reactive Protein Procalcitonin Urine Color Urine Appearance Urine pH Ur Specific [place] Urine Protein Urine Glucose (UA) Urine Ketones Urine Blood Urine Nitrite Urine Bilirubin Urine Urobilinogen Ur Leukocyte Esterase Urine WBC (Auto) Urine RBC (Auto) U Hyaline Cast (Auto) U Epithel Cells (Auto) Urine Bacteria (Auto) Urine Osmolality Ur Random Creatinine U Random Total Protein Ur Random Sodium Ur Random Potassium Ur Random Chloride Ur Random Uric Acid Pending Protein/Creatinin Ratio Nasal Screen MRSA (PCR) Positive A SARS-CoV-2, RNA, NAAT 08/08/22 08/08/22 08/09/22 20:41 Unknown 00:38 WBC RBC Hgb Hct MCV MCH MCHC RDW Std Deviation RDW Coeff of [place] Plt Count MPV Absolute Nucleated RBC Nucleated RBC % (auto) ESR Sodium Potassium 5.2 H Chloride Carbon Dioxide Anion Gap BUN Creatinine Est Cr Clr Drug Dosing Est GFR ( Amer) Est GFR (Non-Af Amer) BUN/Creatinine Ratio Glucose POC Glucose 159 H Lactate Calcium Magnesium Total Creatine Kinase C-Reactive Protein Procalcitonin Urine Color Urine Appearance Urine pH Ur Specific [place] Urine Protein Urine Glucose (UA) Urine Ketones Urine Blood Urine Nitrite Urine Bilirubin Urine Urobilinogen Ur Leukocyte Esterase Urine WBC (Auto) Urine RBC (Auto) U Hyaline Cast (Auto) U Epithel Cells (Auto) Urine Bacteria (Auto) Urine Osmolality Ur Random Creatinine U Random Total Protein Ur Random Sodium Ur Random Potassium Ur Random Chloride Ur Random Uric Acid Protein/Creatinin Ratio Nasal Screen MRSA (PCR) SARS-CoV-2, RNA, NAAT NEGATIVE 08/09/22 08/09/22 08/09/22 05:50 05:50 06:45 WBC 10.69 RBC 4.10 L Hgb 9.7 L Hct 33.8 L MCV 82.4 MCH 23.7 L MCHC 28.7 L RDW Std Deviation 56.7 H RDW Coeff of [place] 19.3 H Plt Count 235 MPV 12.4 Absolute Nucleated RBC 0.04 Nucleated RBC % (auto) 0.4 ESR Sodium 140 Potassium 5.5 H Chloride 100 Carbon Dioxide 23 Anion Gap 17 H BUN 70 H Creatinine 3.63 H Est Cr Clr Drug Dosing 11.8 Est GFR ( Amer) 12.7 Est GFR (Non-Af Amer) 11.0 BUN/Creatinine Ratio 19.3 Glucose 43 L* POC Glucose 48 L* Lactate Calcium 9.5 Magnesium Total Creatine Kinase C-Reactive Protein Procalcitonin Urine Color Urine Appearance Urine pH Ur Specific [place] Urine Protein Urine Glucose (UA) Urine Ketones Urine Blood Urine Nitrite Urine Bilirubin Urine Urobilinogen Ur Leukocyte Esterase Urine WBC (Auto) Urine RBC (Auto) U Hyaline Cast (Auto) U Epithel Cells (Auto) Urine Bacteria (Auto) Urine Osmolality Ur Random Creatinine U Random Total Protein Ur Random Sodium Ur Random Potassium Ur Random Chloride Ur Random Uric Acid Protein/Creatinin Ratio Nasal Screen MRSA (PCR) SARS-CoV-2, RNA, NAAT 08/09/22 08/09/22 08/09/22 07:02 07:18 07:50 WBC RBC Hgb Hct MCV MCH MCHC RDW Std Deviation RDW Coeff of [place] Plt Count MPV Absolute Nucleated RBC Nucleated RBC % (auto) ESR Sodium Potassium Chloride Carbon Dioxide Anion Gap BUN Creatinine Est Cr Clr Drug Dosing Est GFR ( Amer) Est GFR (Non-Af Amer) BUN/Creatinine Ratio Glucose POC Glucose 140 H 95 Lactate 5.3 H* Calcium Magnesium Total Creatine Kinase C-Reactive Protein Procalcitonin Urine Color Urine Appearance Urine pH Ur Specific [place] Urine Protein Urine Glucose (UA) Urine Ketones Urine Blood Urine Nitrite Urine Bilirubin Urine Urobilinogen Ur Leukocyte Esterase Urine WBC (Auto) Urine RBC (Auto) U Hyaline Cast (Auto) U Epithel Cells (Auto) Urine Bacteria (Auto) Urine Osmolality Ur Random Creatinine U Random Total Protein Ur Random Sodium Ur Random Potassium Ur Random Chloride Ur Random Uric Acid Protein/Creatinin Ratio Nasal Screen MRSA (PCR) SARS-CoV-2, RNA, NAAT 08/09/22 09:02 WBC RBC Hgb Hct MCV MCH MCHC RDW Std Deviation RDW Coeff of [place] Plt Count MPV Absolute Nucleated RBC Nucleated RBC % (auto) ESR Sodium Potassium Chloride Carbon Dioxide Anion Gap BUN Creatinine Est Cr Clr Drug Dosing Est GFR ( Amer) Est GFR (Non-Af Amer) BUN/Creatinine Ratio Glucose POC Glucose Lactate Pending Calcium Magnesium Total Creatine Kinase C-Reactive Protein Procalcitonin Urine Color Urine Appearance Urine pH Ur Specific [place] Urine Protein Urine Glucose (UA) Urine Ketones Urine Blood Urine Nitrite Urine Bilirubin Urine Urobilinogen Ur Leukocyte Esterase Urine WBC (Auto) Urine RBC (Auto) U Hyaline Cast (Auto) U Epithel Cells (Auto) Urine Bacteria (Auto) Urine Osmolality Ur Random Creatinine U Random Total Protein Ur Random Sodium Ur Random Potassium Ur Random Chloride Ur Random Uric Acid Protein/Creatinin Ratio Nasal Screen MRSA (PCR) SARS-CoV-2, RNA, NAAT Diagnostic Findings RENAL ULTRASOUND: Right kidney: 9.8 No hydronephrosis. Normal corticomedullary differentiation and cortical thickness. 1.3 x 0.7 x 1.1 cm cyst hypoechoic focus of the superior pole right kidney may represent a cyst. Left kidney: 9.4 No hydronephrosis. Normal corticomedullary differentiation and cortical thickness. Bladder: Decompressed urinary bladder with Adrian catheter. Nonspecific trace free fluid within the abdominal right upper quadrant. IMPRESSION: 1. No renal calculi or hydronephrosis identified. 2. Decompressed urinary bladder with Adrian catheter. 3. Nonspecific trace free fluid within the abdominal right upper quadrant. PG Care Time/CCT Total # of Minutes Spent Total Time Spent with Patient: Total time spent is greater than 50% in coordination of care (as documented) at patient's floor/unit and/or counseling patient: Coding Level of Care Code INP/OBS CONSULT LVL 4, 60 MIN Diagnoses CHESTER (acute kidney injury) N17.9 Acute hyperkalemia E87.5 CKD stage G3b/A3, GFR 30-44 and albumin creatinine ratio >300 mg/g N18.32 Bilateral edema of lower extremity R60.0
--- NOTE | 2022-08-09 09:24 | Ultrasound Report ---
RENAL ULTRASOUND HISTORY: Acute kidney injury worsening CHESTER, oliguria COMPARISON: Renal ultrasound 03/05/2022 FINDINGS: Right kidney: 9.8 No hydronephrosis. Normal corticomedullary differentiation and cortical thickness. 1.3 x 0.7 x 1.1 cm cyst hypoechoic focus of the superior pole right kidney may represent a cyst. Left kidney: 9.4 No hydronephrosis. Normal corticomedullary differentiation and cortical thickness. Bladder: Decompressed urinary bladder with Adrian catheter. Nonspecific trace free fluid within the abdominal right upper quadrant. IMPRESSION: 1. No renal calculi or hydronephrosis identified. 2. Decompressed urinary bladder with Adrian catheter. 3. Nonspecific trace free fluid within the abdominal right upper quadrant. ACT 112: Negative or not required by law. Electronically signed by: James Nickerson M.D. 08/09/2022 9:21 AM
--- NOTE | 2022-08-09 09:54 | Hospitalist Progress Note ---
Date of Service August 09, 2022 Assessment & Plan (1) Acute hyperkalemia: Plan: Elevated potassium 2/2 acute renal failure, treating with insulin, glucose, and Lokelma x [address] changes on EKG Following serial labs and on telemetry (2) Acute kidney injury superimposed on CKD: Plan: BUN 70 and Cr 3.63, CHESTER, etiology includes diarrea vs. use of 40 mg Lasix daily and Entresto Hold metformin and Entresto Will follow serial labs Nephrology consulted, we are following recommendation 1/2 NS + 75 mEq NaHCO3 @ 150 ml/hr for 1L (3) Bilateral edema of lower extremity: Plan: No evidence of DVT on today's Doppler Edema appears improved Continue to diurese judiciously secondary to CHESTER on CKD (4) CHF (congestive heart failure): Plan: Pro BNP is elevated above 30,000, possible secondary to CHESTER vs. CHF Given 1 dose 20 mg Lasix Adrian catheter is in place Strict I's and O's and following blood pressure (5) T2DM (type 2 diabetes mellitus): Plan: Most recent A1c is 6.9% Hold Metformin, Novolog Sliding Scale initiated Glycemic consult (pharmacy) BSG AC at bedtime Continue with diabetic diet (6) Hypertension: Plan: Hold Entresto and Losartan. Continue Toprol XL BID Admit to telemetry. Daily EKG x2 Troponin is within normal limits 11.7 PG/mL (7) COPD (chronic obstructive pulmonary disease): Plan: Patient reports a [id number] smoking history. She quit in the Patient is on fluticasone/vilanterol 200/25 mcg (Breo Ellipta) Chronic respiratory failure with hypoxia requiring supplemental oxygen (2L), goal sats above 90% Continue the Breo Ellipta while inpatient No acute respiratory complaints and no hypoxia with supplemental oxygen on admission (8) Atrial fibrillation with rapid ventricular response: Plan: Patient currently is in atrial fibrillation with a EKG but no complaints of palpitations or chest pain Patient is on metoprolol succinate ER 100 mg p.o. twice daily Patient is also anticoagulated with Eliquis 2.5 mg p.o. twice daily Plan Dispo: PCU/Tele Diet: Heart healthy, low potassium DVT Ppx: Apixaban 2.5 mg p.o. twice daily for DVT prophylaxis Consults: Nephro Admission and Anticipated Discharge Date Admission Date: August 08, 2022 Supervising Physician Co-Signing Physician Notes I personally examined the patient and verified all choi points of history and exam, discussed case, and agree with decision making with S Javier MS4 very little HPI or ROS obtainable. Still fairly groggy. Awakens some, converses some but then trails off. Vitals noted, in general she awakens and then trails off. Does not appear to be in distress. Mucous membranes slightly dry. Breathing unlabored no accessory muscle use. Abdomen soft nondistended nontender. BMP, CBC noted A/P CHESTER -hard to obtain history from her, but reportedly had some diarrhea. Most likely, volume depletion from diarrhea plus Lasix combined with reduced renal blood flow from Entresto as the culprit. If she did not have diarrhea, then I would worry about whether or not she was truly able to tolerate the Entresto, versus just being on that plus the Lasix. Likely has ATN mediated acute renal failure from some form of a prerenal insultseither/both of above. Holding Lasix and Entresto at this time, continue IV fluids. Follow closely. Hyperkalemia - secondary to CHESTER - improving. A. fib RVR - rate controlled now. chronically anticoagulated Cody Sanchez is an 81 year old female with a pertinent past medical history of HFrEF, paroxysmal atrial fibrillation, SSS s/p pacemaker placement, COPD, pulmonary hypertension, DMII, hypertension, hyperlipidemia, peripheral arterial disease, morbid obesity, and CKD. She presented last night with a 4 day history of leg swelling, pain and weeping. She also has had nausea and diarrhea with generalized weakness. She is not complaining of abdominal pain, chest pain, or SOB. Physical Exam Physical Exam: General: Confused, NAD HEENT: No scleral icterus, PERRLA, neck supple. Atraumatic. Cardiovascular: Irregular, Irregular, No murmurs/rubs/gallops Pulmonary: Clear to auscultation bilaterally, normal work of breathing, no rales, rhonchi Abdomen: Soft, nontender, nondistended, positive bowel sounds. Musculoskeletal: Atraumatic, no peripheral edema, minimal oozing, bandage over left anterior og Results & Data Results & Data ([facility]) Vital Signs (Past 12 Hours) Vital Signs Temp Pulse Pulse Resp BP Pulse Ox O2 Del Method 08/09/22 07:08 36.5 C 70 16 96/58 L 90 Nasal Cannula 08/08/22 22:26 85 08/09/22 03:07 36.3 C L 99 H 19 92/50 L 100 Nasal Cannula 08/09/22 02:12 Nasal Cannula 08/08/22 23:06 36.2 C L 105 H 17 103/64 100 Nasal Cannula O2 Flow Rate 08/09/22 07:08 2 08/08/22 22:26 08/09/22 03:07 2 08/09/22 02:12 3 08/08/22 23:06 2
[2022-08-09] MEDS ORDERED: SODIUM BICARBONATE 8.4% 75 MEQ in SODIUM CHLORIDE 0.45 % 1,000 ML IV SCH ×2 (10:30→18:30)
--- NOTE | 2022-08-09 10:41 | Pharmacy Report ---
Pharmacy Glycemic Short Note 2 - Date of Service August 09, 2022 - Glycemic Short BSG Results (Last 24 hours): 08/08/22 08/08/22 08/08/22 12:05 17:08 18:40 Glucose 73 71 POC Glucose 73 08/08/22 08/09/22 08/09/22 20:41 05:50 06:45 Glucose 43 L* POC Glucose 159 H 48 L* 08/09/22 08/09/22 07:02 07:50 Glucose POC Glucose 140 H 95 OUTPATIENT ANTIDIABETIC REGIMEN: * Metformin 500 mg BID ASSESSMENT: * Coco Sanchez is an 81 year old patient that presented to the ED with hyperkalemia and acute CHESTER superimposed on CKD. Patient is a Type 2 diabetic with a most recent A1C of 6.9% from 07/07/2022. Patient is currently ordered a T2DM carb consistent diet and is requiring no basal insulin at this time. Patient experienced some low BSGs overnight (43 & 48 mg/dL). Patient did not receive any subcutaneous bolus insulin last evening, but did receive multiple doses of IV human regular insulin doses with dextrose 50% for treatment of hyperkalemia. PLAN FOR INPATIENT GLYCEMIC CONTROL: * Hold outpatient oral diabetes medications * Basal insulin * None * Bolus insulin * NovoLog per scale ACHS or Q6hrs while NPO * Goal Range: Low 120 mg/dL - High 160 mg/dL * Correction Factor: 50 mg/dL/unit * Insulin:CHO ratio: None
--- NOTE | 2022-08-09 15:31 | Electrocardiogram Report ---
Test Reason : Blood Pressure : / mmHG Vent. Rate : 116 BPM Atrial Rate : 138 BPM P-R Int : 000 ms QRS Dur : 088 ms QT Int : 366 ms P-R-T Axes : 000 103 174 degrees QTc Int : 508 ms Atrial fibrillation Rightward axis Low voltage QRS Nonspecific ST and T wave abnormality Abnormal ECG When compared with ECG of 08-AUG-2022 07:00, No significant change Confirmed by Yosef Lopez ([id number]) on 08/09/2022 3:31:36 PM Referred By: REFERRED SELF Confirmed By:Yosef Lopez
[2022-08-09 16:02] LABS: Albumin Level 3.5 gm/dl (3.4-5.0); Calcium 9.1 mg/dl (8.5-10.1); Potassium 5.1 mmol/L (3.5-5.1)
[2022-08-09 16:08] LABS: BUN Creatinine Ratio 16.5 (10-20); Creatinine Clr Calc Pharmacy 10.1 ml/min; Est GFR (African American) 10.6 ml/min; Est GFR (Non-African American) 9.1 ml/min
[2022-08-09] MEDS ORDERED: NORMOSOL-R 1,000 ML IV SCH (18:45)
--- NOTE | 2022-08-09 19:24 | Billing Data ---
Date of Service August 09, 2022 Coding Level of Care Code 21540 SUB INP/OBS CARE
[2022-08-09] MEDS: MONTELUKAST SODIUM 10 MG TABLET PO SCH (20:08)
[2022-08-10 08:35] LABS: Hematocrit (blood only) 30.7 % (37.0-47.0); Hemoglobin 9.2 g/dl (12.0-16.0); Mean Corpuscular Hemoglobin 23.7 pg (25.0-34.0); Mean Corpuscular Volume 78.9 fL (80.0-100.0); Mean Platelet Volume 12.1 fL (9.4-12.4); Platelet Count 235 K/uL (130-400); RDW Standard Deviation 53.9 fL (36.4-46.3); Red Blood Count 3.89 M/uL (4.20-5.40); White Blood Count 10.34 K/ul (4.8-10.8)
[2022-08-10] MEDS: METOPROLOL SUCC 50MG EXT REL TAB PO SCH ×2 (09:00→20:33)
[2022-08-10] MEDS: ATORVASTATIN 40 MG TAB PO SCH (09:01)
[2022-08-10] MEDS: FLUoxetine HCL 20 MG CAP PO SCH (09:01)
[2022-08-10] MEDS: PANTOprazole 40 MG TAB PO SCH (09:01)
[2022-08-10] MEDS: HEPARIN SOD 5,000 UNIT/0.5 ML VIAL SQ SCH ×2 (09:01→20:34)
[2022-08-10] MEDS: INSULIN ASPART PER UNIT SC SCH ×4 (09:02→21:28)
[2022-08-10] MEDS: FLUTICASONE/VILANTEROL 200/25MCG 14 PUFFS/INHALER INH SCH (09:02)
[2022-08-10 09:03] LABS: Albumin Level 3.5 gm/dl (3.4-5.0); Bilirubin,Total 0.8 mg/dl (0.2-1.0); Potassium 5.2 mmol/L (3.5-5.1)
[2022-08-10 09:09] LABS: Albumin Globulin Ratio 1.2 (0.9-2); BUN Creatinine Ratio 16.8 (10-20); Creatinine Clr Calc Pharmacy 10.6 ml/min; Est GFR (African American) 10.7 ml/min; Est GFR (Non-African American) 9.3 ml/min; Globulin 2.9 gm/dl (2.5-4.0); Phosphorus 5.7 mg/dl (2.5-4.9); Total Protein 6.4 gm/dl (6.0-8.3)
--- NOTE | 2022-08-10 09:09 | Hospitalist Progress Note ---
Date of Service August 10, 2022 Assessment & Plan (1) Acute hyperkalemia: Plan: Elevated potassium 2/2 acute renal failure, treating with insulin, glucose, and Lokelma x [address] changes on EKG Following serial labs and on telemetry (2) Acute kidney injury superimposed on CKD: Plan: BUN 70 and Cr 3.63, CHESTER, etiology includes diarrhea vs. use of 40 mg Lasix daily and Entresto Hold metformin and Entresto Will follow serial labs Nephrology consulted, 08/09 1/2 NS + 75 mEq NaHCO3 @ 150 ml/hr for 1L, additional fluids overnight, currently holding (3) Bilateral edema of lower extremity: Plan: No evidence of DVT on today's Doppler Edema appears improved Continue to diurese judiciously secondary to CHESTER on CKD (4) CHF (congestive heart failure): Plan: Pro BNP is elevated above 30,000, possible secondary to CHESTER vs. CHF Given 1 dose 20 mg Lasix Adrian catheter is in place Strict I's and O's and following blood pressure (5) T2DM (type 2 diabetes mellitus): Plan: Most recent A1c is 6.9% Hold Metformin, Novolog Sliding Scale initiated Glycemic consult (pharmacy) BSG AC at bedtime Continue with diabetic diet (6) Hypertension: Plan: Hold Entresto and Losartan. Continue Toprol XL BID Admit to telemetry. Daily EKG x2 Troponin is within normal limits 11.7 PG/mL (7) COPD (chronic obstructive pulmonary disease): Plan: Patient reports a [id number] smoking history. She quit in the Patient is on fluticasone/vilanterol 200/25 mcg (Breo Ellipta) Chronic respiratory failure with hypoxia requiring supplemental oxygen (2L), goal sats above 90% Continue the Breo Ellipta while inpatient No acute respiratory complaints and no hypoxia with supplemental oxygen on admission (8) Atrial fibrillation with rapid ventricular response: Plan: Patient currently is in atrial fibrillation with a EKG but no complaints of palpitations or chest pain Patient is on metoprolol succinate ER 100 mg p.o. twice daily Patient is also anticoagulated with Eliquis 2.5 mg p.o. twice daily Plan Dispo: PCU/Tele Diet: Heart healthy, low potassium DVT Ppx: Apixaban 2.5 mg p.o. twice daily for DVT prophylaxis Consults: Nephro Admission and Anticipated Discharge Date Admission Date: August 08, 2022 Supervising Physician Co-Signing Physician Notes I personally examined the patient and verified all choi points of history and exam, discussed case, and agree with decision making with Antony Herrera MS4 doing better, more talkative. did have diarrhea prior to admission. friends at bedside, updated with her permission. answered all quetions to the best of my ability and to their/her satisfaction. BMP, CBC noted A/P CHESTER - Most likely, volume depletion from diarrhea plus Lasix combined with reduced renal blood flow from Entresto as the culprit. IVF. no acute indicatio ns for HD. looks c/w ATN - anticipate improvement with time. Hyperkalemia - secondary to CHESTER - improving. 5.2 today. A. fib RVR - rate controlled now. chronically anticoagulated chronic systolic CHF (otherwise known as chronic HFrEF) - holding entresto at this time, holding lasix since volume down. follow with IVF - obviously narrow therapeutic window for fluids but no evidence of volume overload at this time chronic respiratory failure with hypoxia - home O2. no appearance of respiratory distress Subjective Coco Sanchez is an 81 year old female with a pertinent past medical history of HFrEF, paroxysmal atrial fibrillation, SSS s/p pacemaker placement, COPD, pulmonary hypertension, DMII, hypertension, hyperlipidemia, peripheral arterial disease, morbid obesity, and CKD. She presented last night with a 4 day history of leg swelling, pain and weeping. She also has had nausea and diarrhea with generalized weakness. Today she is significantly more aware of where she is. She is able to answer questions when written down for her. She is feeling well and confirms she had diarrhea and leg pain but unable to quantify the length of time this has been going on or changes since hospitalization. Physical Exam Physical Exam: General: Confused, NAD HEENT: No scleral icterus, PERRLA, neck supple. Atraumatic. Cardiovascular: Irregular, Irregular, No murmurs/rubs/gallops Pulmonary: Clear to auscultation bilaterally, normal work of breathing, no rales, rhonchi Abdomen: Soft, nontender, nondistended, positive bowel sounds. Musculoskeletal: Atraumatic, trace edema, abrasions noted on legs Results & Data Results & Data ([facility]) Vital Signs (Past 12 Hours) Vital Signs Temp Pulse Pulse Resp BP Pulse Ox O2 Del Method 08/10/22 08:29 36.6 C 96 H 20 109/51 L 100 Nasal Cannula 08/10/22 02:57 36.5 C 97 H 19 110/71 95 Nasal Cannula 08/09/22 22:08 100 H 08/09/22 23:03 36.4 C L 96 H 18 101/66 96 Nasal Cannula O2 Flow Rate 08/10/22 08:29 2 08/10/22 02:57 2 08/09/22 22:08 08/09/22 23:03 2
--- NOTE | 2022-08-10 09:57 | XRay Report ---
XR chest 1V portable HISTORY: 81 years-old Female CHF, CHESTER acute kidney injury with heart failure COMPARISON: Chest radiograph 08/09/2022 TECHNIQUE: AP view of the chest FINDINGS: Cardiac silhouette is enlarged. On a vascular congestion. Atherosclerosis of the aorta. Left subclavi an pacer. No pneumothorax, large pleural effusion or overt pulmonary edema. Bones of the chest appear grossly intact. IMPRESSION: Cardiomegaly with pulmonary vascular congestion. ACT 112: Negative or not required by law. The above report was generated using voice recognition software. It may contain grammatical, syntax o r spelling errors. Electronically signed by: James Nickerson M.D. 08/10/2022 9:55 AM
[2022-08-10] MEDS ORDERED: NORMOSOL-R 1,000 ML IV SCH (11:35)
--- NOTE | 2022-08-10 12:47 | Nephrology Progress Note ---
Date of Service August 10, 2022 Assessment & Plan (1) CHESTER (acute kidney injury): Plan: Remains relatively oliguric though UOP improved with IVF replacement overnight. No emergent indication for dialysis. Clinical presentation consistent with intravascular volume depletion and decreased EAV with superimposed ATN. IVF stopped for now. Tolerating adequate PO fluids. Adrian intact. Kidneys unobstructed on imaging. Urine acellular. Medications appropriate for kidney dysfunction. Document strict I/O's. Repeat metabolic profile this afternoon and tomorrow AM. Hold metformin and Entresto. (2) Acute hyperkalemia: Plan: Remains on tele monitor. Improved. Low potassium diet. Repeat labs ordered. (3) CKD stage G3b/A3, GFR 30-44 and albumin creatinine ratio >300 mg/g: Plan: Baseline creatinine 1.3-1.5 mg/dL. MACR 308 mcg/mg. Close outpatient follow up will be required. (4) Bilateral edema of lower extremity: Plan: Chronic. Duplex reviewed. Noted history of R CHF and pulmonary hypertension. Diuretics held. Admission and Anticipated Discharge Date Admission Date: August 08, 2022 Subjective No acute events overnight. Coco states that she is feeling much better this morning. She is breathing comfortably. She denies chest pain or palpitations. No lightheadedness or dizziness. Appetite improved. No diarrhea today. Urine output remains low. Review of Systems Review of Systems: All systems reviewed & are unremarkable except as noted in HPI & below Physical Exam Constitutional: well developed, + obese and + frail appearing; no acute distress Eyes: + anicteric sclerae; no corneal abnormality ENMT: Mouth: + lip abnormality and + dry oral mucous membranes Neck: normal visual inspection and trachea midline Respiratory: normal respiratory effort Auscultation: lungs clear to auscultation bilaterally and + diminished lung sounds (left base) Cardiovascular: Rate/Rhythm: + irregularly irregular Heart Sounds: normal S1 and normal S2 Extremities: + edema Musculoskeletal: Extremities: no cyanosis and no clubbing Skin: + turgor decreased; no jaundice Neurologic: Motor/Sensory: no tremor and no asterixis Psychiatric: Orientation: alert and oriented x 3 Results & Data ([facility]) Vital Signs (Past 12 Hours) Vital Signs Temp Pulse Resp BP Pulse Ox O2 Del Method O2 Flow Rate 08/10/22 11:00 87 08/10/22 11:44 36.5 C 95 H 18 102/68 98 Nasal Cannula 2 08/10/22 08:00 Nasal Cannula 2 08/10/22 08:29 36.6 C 96 H 20 109/51 L 100 Nasal Cannula 2 08/10/22 02:57 36.5 C 97 H 19 110/71 95 Nasal Cannula 2 Laboratory Results Laboratory Results - last 24 hr 08/09/22 08/09/22 08/09/22 15:22 16:25 20:23 WBC RBC Hgb Hct MCV MCH MCHC RDW Std Deviation RDW Coeff of Balbina Plt Count MPV VBG pH Sodium 138 Potassium 5.1 Chloride 98 Carbon Dioxide 28 Anion Gap 12 H BUN 70 H Creatinine 4.23 H D Est Cr Clr Drug Dosing 10.1 Est GFR ( Amer) 10.6 Est GFR (Non-Af Amer) 9.1 BUN/Creatinine Ratio 16.5 Glucose 128 H POC Glucose 118 H 130 H Lactate Calcium 9.1 Phosphorus 6.0 H Total Bilirubin AST ALT Alkaline Phosphatase Total Protein Albumin 3.5 Globulin Albumin/Globulin Ratio Hep Bs Antigen Hep Bs Ag Confirmation Hep Bs Antibody, Quant Hep B Core Total Ab 08/10/22 08/10/22 08/10/22 04:04 07:39 08:17 WBC RBC Hgb Hct MCV MCH MCHC RDW Std Deviation RDW Coeff of Balbina Plt Count MPV VBG pH Sodium 140 Potassium 5.2 H Chloride 98 Carbon Dioxide 26 Anion Gap 16 H BUN 70 H Creatinine 4.17 H Est Cr Clr Drug Dosing 10.6 Est GFR ( Amer) 10.7 Est GFR (Non-Af Amer) 9.3 BUN/Creatinine Ratio 16.8 Glucose 79 POC Glucose 116 H 98 Lactate Calcium 9.0 Phosphorus 5.7 H Total Bilirubin 0.8 AST 15 ALT 14 Alkaline Phosphatase 107 H Total Protein 6.4 Albumin 3.5 Globulin 2.9 Albumin/Globulin Ratio 1.2 Hep Bs Antigen Hep Bs Ag Confirmation Hep Bs Antibody, Quant Hep B Core Total Ab 08/10/22 08/10/22 08/10/22 08:17 08:17 08:17 WBC 10.34 RBC 3.89 L Hgb 9.2 L Hct 30.7 L MCV 78.9 L MCH 23.7 L MCHC 30.0 L RDW Std Deviation 53.9 H RDW Coeff of Balbina 19.0 H Plt Count 235 MPV 12.1 VBG pH 7.27 L Sodium Potassium Chloride Carbon Dioxide Anion Gap BUN Creatinine Est Cr Clr Drug Dosing Est GFR ( Amer) Est GFR (Non-Af Amer) BUN/Creatinine Ratio Glucose POC Glucose Lactate 2.9 H* Calcium Phosphorus Total Bilirubin AST ALT Alkaline Phosphatase Total Protein Albumin Globulin Albumin/Globulin Ratio Hep Bs Antigen Hep Bs Ag Confirmation Hep Bs Antibody, Quant Hep B Core Total Ab 08/10/22 08/10/22 11:30 12:11 WBC RBC Hgb Hct MCV MCH MCHC RDW Std Deviation RDW Coeff of Balbina Plt Count MPV VBG pH Sodium Potassium Chloride Carbon Dioxide Anion Gap BUN Creatinine Est Cr Clr Drug Dosing Est GFR ( Amer) Est GFR (Non-Af Amer) BUN/Creatinine Ratio Glucose POC Glucose 86 Lactate Calcium Phosphorus Total Bilirubin AST ALT Alkaline Phosphatase Total Protein Albumin Globulin Albumin/Globulin Ratio Hep Bs Antigen Pending Hep Bs Ag Confirmation Pending Hep Bs Antibody, Quant Pending Hep B Core Total Ab Pending PG Care Time/CCT Total # of Minutes Spent Total Time Spent with Patient: Total time spent is greater than 50% in coordination of care (as documented) at patient's floor/unit and/or counseling patient: Coding Level of Care Code 12936 SUB INP/OBS CARE 3/50MIN Diagnoses CHESTER (acute kidney injury) N17.9 Acute hyperkalemia E87.5 CKD stage G3b/A3, GFR 30-44 and albumin creatinine ratio >300 mg/g N18.32 Bilateral edema of lower extremity R60.0
--- NOTE | 2022-08-10 15:32 | Electrocardiogram Report ---
Test Reason : Blood Pressure : / mmHG Vent. Rate : 102 BPM Atrial Rate : 136 BPM P-R Int : 000 ms QRS Dur : 090 ms QT Int : 288 ms P-R-T Axes : 000 080 190 degrees QTc Int : 375 ms Atrial fibrillation with rapid ventricular response Nonspecific ST and T wave abnormality Abnormal ECG When compared with ECG of 09-AUG-2022 06:04, Nonspecific T wave abnormality now evident in Anterior leads Confirmed by Yosef Lopez ([id number]) on 08/10/2022 3:32:26 PM Referred By: REFERRED SELF Confirmed By:Yosef Lopez
--- NOTE | 2022-08-10 19:18 | Billing Data ---
Date of Service August 10, 2022 Coding Level of Care Code 55940 SUB INP/OBS CARE MIN
[2022-08-10 19:38] LABS: Calcium 8.9 mg/dl (8.5-10.1); Potassium 5.1 mmol/L (3.5-5.1)
[2022-08-10 19:44] LABS: BUN Creatinine Ratio 17.6 (10-20); Creatinine Clr Calc Pharmacy 10.5 ml/min; Est GFR (African American) 10.6 ml/min; Est GFR (Non-African American) 9.2 ml/min
[2022-08-10] MEDS: LORazepam 0.5 MG TAB PO PRN (20:33)
[2022-08-10] MEDS: MONTELUKAST SODIUM 10 MG TABLET PO SCH (20:33)
[2022-08-11 07:19] LABS: Hematocrit (blood only) 33.4 % (37.0-47.0); Hemoglobin 9.7 g/dl (12.0-16.0); Mean Corpuscular Hemoglobin 23.1 pg (25.0-34.0); Mean Corpuscular Volume 79.5 fL (80.0-100.0); Mean Platelet Volume 11.4 fL (9.4-12.4); Platelet Count 226 K/uL (130-400); RDW Coefficient of Variation 19.5 % (11.5-14.5); RDW Standard Deviation 55.1 fL (36.4-46.3); White Blood Count 7.55 K/ul (4.8-10.8)
[2022-08-11 09:02] LABS: Albumin Level 3.6 gm/dl (3.4-5.0); Bilirubin,Total 0.7 mg/dl (0.2-1.0); Calcium 8.9 mg/dl (8.5-10.1); Potassium 4.9 mmol/L (3.5-5.1)
[2022-08-11 09:08] LABS: Albumin Globulin Ratio 1.3 (0.9-2); BUN Creatinine Ratio 17.2 (10-20); Creatinine Clr Calc Pharmacy 10.9 ml/min; Est GFR (African American) 11.1 ml/min; Est GFR (Non-African American) 9.6 ml/min; Globulin 2.7 gm/dl (2.5-4.0); Total Protein 6.3 gm/dl (6.0-8.3)
[2022-08-11] MEDS: INSULIN ASPART PER UNIT SC SCH ×4 (09:11→22:05)
--- NOTE | 2022-08-11 09:22 | Pharmacy Report ---
Pharmacy Glycemic Sign Off Nt - Date of Service August 11, 2022 - Assessment & Plan ASSESSMENT: * Pharmacy was consulted by Ab Mcfadden PA-C on 08/08/22 for glycemic control and to write orders per [facility] inpatient glycemic control protocol. * Major changes made by pharmacy to antidiabetic regimen include: * adjustment of Novolog parameters * Patient has been receiving/requiring 0 units of insulin per day for adequate glycemic control * BSGs ranging 86-142 mg/dl * Regimen has only required minor adjustments over the past 48hrs to achieve this level of control * Do not anticipate further changes in patient status that would quickly deteriorate glycemic control (i.e. patient to be NPO for upcoming procedure, steroids tapering, starting tube feedings, etc). * Please see recommendations for outpatient antidiabetic regimen below. PLAN FOR INPATIENT GLYCEMIC CONTROL: No changes needed to current regimen. * Hold basal insulin * Continue NovoLog per scale ACHS/Q6hrs while NPO * Goal range = 120-150 mg/dl * CF = 50 mg/dl/unit * No carb coverage * Pharmacy is signing off of glycemic consult and will no longer be making adjustments to inpatient regimen. Please feel free to re-consult if needed. Thank you.
[2022-08-11] MEDS: METOPROLOL SUCC 50MG EXT REL TAB PO SCH ×2 (10:09→21:58)
[2022-08-11] MEDS: ATORVASTATIN 40 MG TAB PO SCH (10:10)
[2022-08-11] MEDS: FLUoxetine HCL 20 MG CAP PO SCH (10:10)
[2022-08-11] MEDS: PANTOprazole 40 MG TAB PO SCH (10:10)
[2022-08-11] MEDS: FLUTICASONE/VILANTEROL 200/25MCG 14 PUFFS/INHALER INH SCH (10:10)
[2022-08-11] MEDS: HEPARIN SOD 5,000 UNIT/0.5 ML VIAL SQ SCH ×2 (10:13→22:03)
--- NOTE | 2022-08-11 10:47 | Nephrology Progress Note ---
Date of Service August 11, 2022 Assessment & Plan (1) CHESTER (acute kidney injury): Plan: UOP improved. No emergent indication for dialysis. Clinical presentation consistent with intravascular volume depletion and decreased EAV with superimposed ATN. Tolerating adequate PO fluids. Adrian intact. Kidneys unobstructed on imaging. Urine acellular. Medications appropriate for kidney dysfunction. Document strict I/O's. Repeat metabolic profile tomorrow AM. Hold metformin and Entresto. (2) Acute hyperkalemia: Plan: Remains on tele monitor. Improved. Low potassium diet. (3) CKD stage G3b/A3, GFR 30-44 and albumin creatinine ratio >300 mg/g: Plan: Baseline creatinine 1.3-1.5 mg/dL. MACR 308 mcg/mg. Close outpatient follow up will be required. (4) Bilateral edema of lower extremity: Plan: Chronic. Duplex reviewed. Noted history of R CHF and pulmonary hypertension. Diuretics held. Admission and Anticipated Discharge Date Admission Date: August 08, 2022 Subjective No acute events overnight. No complaints this AM. Resting comfortably in bed. Denies dyspnea. Appetite fair. No GI symptoms reported. Review of Systems Review of Systems: All systems reviewed & are unremarkable except as noted in HPI & below Physical Exam Constitutional: well developed, + obese and + frail appearing; no acute distress Eyes: + anicteric sclerae; no corneal abnormality ENMT: Mouth: + dry oral mucous membranes Neck: normal visual inspection and trachea midline Respiratory: normal respiratory effort Auscultation: lungs clear to auscultation bilaterally and + diminished lung sounds (left base) Cardiovascular: Rate/Rhythm: + irregularly irregular Heart Sounds: normal S1 and normal S2 Extremities: + edema Musculoskeletal: Extremities: no cyanosis and no clubbing Skin: + turgor decreased; no jaundice Neurologic: Motor/Sensory: no tremor and no asterixis Psychiatric: Orientation: alert and oriented x 3 Results & Data ([facility]) Vital Signs (Past 12 Hours) Vital Signs Temp Pulse Resp BP Pulse Ox O2 Del Method O2 Flow Rate 08/11/22 07:38 36.5 C 96 H 20 113/81 98 Room Air 1 08/11/22 03:27 36.5 C 96 H 20 97/57 L 98 Nasal Cannula 2.0 08/10/22 23:11 36.4 C L 93 H 20 99/63 L 93 Nasal Cannula 2.0 Laboratory Results Laboratory Results - last 24 hr 08/10/22 08/10/22 08/10/22 11:30 12:11 16:58 WBC RBC Hgb Hct MCV MCH MCHC RDW Std Deviation RDW Coeff of Balbina Plt Count MPV Sodium Potassium Chloride Carbon Dioxide Anion Gap BUN Creatinine Est Cr Clr Drug Dosing Est GFR ( Amer) Est GFR (Non-Af Amer) BUN/Creatinine Ratio Glucose POC Glucose 86 119 H Calcium Total Bilirubin AST ALT Alkaline Phosphatase Total Protein Albumin Globulin Albumin/Globulin Ratio Hep Bs Antigen Pending Hep Bs Ag Confirmation Pending Hep Bs Antibody, Quant Pending Hep B Core Total Ab Pending 08/10/22 08/10/22 08/11/22 18:21 21:20 06:47 WBC 7.55 RBC 4.20 Hgb 9.7 L Hct 33.4 L MCV 79.5 L MCH 23.1 L MCHC 29.0 L RDW Std Deviation 55.1 H RDW Coeff of Balbina 19.5 H Plt Count 226 MPV 11.4 Sodium 138 Potassium 5.1 Chloride 97 L Carbon Dioxide 27 Anion Gap 14 H BUN 74 H Creatinine 4.21 H Est Cr Clr Drug Dosing 10.5 Est GFR ( Amer) 10.6 Est GFR (Non-Af Amer) 9.2 BUN/Creatinine Ratio 17.6 Glucose 121 H POC Glucose 142 H Calcium 8.9 Total Bilirubin AST ALT Alkaline Phosphatase Total Protein Albumin Globulin Albumin/Globulin Ratio Hep Bs Antigen Hep Bs Ag Confirmation Hep Bs Antibody, Quant Hep B Core Total Ab 08/11/22 08/11/22 06:47 07:36 WBC RBC Hgb Hct MCV MCH MCHC RDW Std Deviation RDW Coeff of Balbina Plt Count MPV Sodium 138 Potassium 4.9 Chloride 97 L Carbon Dioxide 27 Anion Gap 14 H BUN 70 H Creatinine 4.06 H Est Cr Clr Drug Dosing 10.9 Est GFR ( Amer) 11.1 Est GFR (Non-Af Amer) 9.6 BUN/Creatinine Ratio 17.2 Glucose 97 POC Glucose 108 H Calcium 8.9 Total Bilirubin 0.7 AST 15 ALT 13 Alkaline Phosphatase 122 H Total Protein 6.3 Albumin 3.6 Globulin 2.7 Albumin/Globulin Ratio 1.3 Hep Bs Antigen Hep Bs Ag Confirmation Hep Bs Antibody, Quant Hep B Core Total Ab PG Care Time/CCT Total # of Minutes Spent Total Time Spent with Patient: Total time spent is greater than 50% in coordination of care (as documented) at patient's floor/unit and/or counseling patient: Coding Level of Care Code 24128 SUB INP/OBS CARE 350MIN Diagnoses CHESTER (acute kidney injury) N17.9 Acute hyperkalemia E87.5 CKD stage G3b/A3, GFR 30-44 and albumin creatinine ratio >300 mg/g N18.32 Bilateral edema of lower extremity R60.0
--- NOTE | 2022-08-11 10:53 | Hospitalist Progress Note ---
Date of Service August 11, 2022 Assessment & Plan (1) Acute hyperkalemia: Plan: Elevated potassium 2/2 acute renal failure, treating with insulin, glucose, and Lokelma x 1 2/2 improving currently 4.[address] changes on EKG Following serial labs and on telemetry (2) Acute kidney injury superimposed on CKD: Plan: Admission BUN 70 and Cr 3.63, CHESTER, etiology includes diarrhea vs. use of 40 mg Lasix daily and Entresto 2/2 Current BUN 70 and Creatinine 4.06 Hold metformin and Entresto Will follow serial labs Nephrology consulted, 08/09 1/2 NS + 75 mEq NaHCO3 @ 150 ml/hr for 1L, - fluids administered 2x on Aug 09 - 08/11 currently holding fluids and encouraging PO intake (3) Bilateral edema of lower extremity: Plan: No evidence of DVT on today's Doppler - edema and pain improved (4) CHF (congestive heart failure): Plan: Pro BNP is elevated above 30,000, likely secondary to CHESTER vs. CHF Given 1 dose 20 mg Lasix on 08/09, currently holding Adrian catheter is in place Strict I's and O's and following blood pressure no signs of fluid overload (5) T2DM (type 2 diabetes mellitus): Plan: Most recent A1c is 6.9% Hold Metformin, Novolog Sliding Scale initiated Glycemic consult (pharmacy) BSG AC at bedtime Continue with diabetic diet (6) Hypertension: Plan: Hold Entresto and Losartan. Continue Toprol XL BID Admit to telemetry. Daily EKG x2 Troponin is within normal limits 11.7 PG/mL (7) COPD (chronic obstructive pulmonary disease): Plan: Patient reports a [id number] smoking history. She quit in the Patient is on fluticasone/vilanterol 200/25 mcg (Breo Ellipta) Chronic respiratory failure with hypoxia requiring supplemental oxygen (2L), g oal sats above 90% Continue the Breo Ellipta while inpatient No acute respiratory complaints and no hypoxia with supplemental oxygen on admission (8) Atrial fibrillation with rapid ventricular response: Plan: Patient currently is in atrial fibrillation with a EKG but no complaints of palpitations or chest pain Patient is on metoprolol succinate ER 100 mg p.o. twice daily Patient is also anticoagulated with Eliquis 2.5 mg p.o. twice daily Plan Dispo: PCU/Tele Diet: Heart healthy, low potassium DVT Ppx: Apixaban 2.5 mg p.o. twice daily for DVT prophylaxis Consults: Nephro Admission and Anticipated Discharge Date Admission Date: August 08, 2022 Supervising Physician Co-Signing Physician Notes I personally examined the patient and verified all choi points of history and exam, discussed case, and agree with decision making with S Javier MS4 feels ok no new complaints updated pt and friend. answered all questions to the best of my ability and to their/her satisfaction. BMP, CBC again noted A/P CHESTER - Most likely, volume depletion from diarrhea plus Lasix combined with reduced renal blood flow from Entresto as the culprit. PO intake - able to hold off on further IV fluids for now. no acute indications for HD. looks c/w ATN - anticipate improvement with time. Cr 4.06 today Hyperkalemia - secondary to CHESTER - improved A. fib RVR - rate controlled now. chronically anticoagulated chronic systolic CHF (otherwise known as chronic HFrEF) - holding entresto at this time, holding lasix since volume down. follow but no decompensation chronic respiratory failure with hypoxia - home O2. no appearance of respiratory distress Subjective Coco Sanchez is an 81 year old female with a pertinent past medical history of HFrEF, paroxysmal atrial fibrillation, SSS s/p pacemaker placement, COPD, pulmonary hypertension, DMII, hypertension, hyperlipidemia, peripheral arterial disease, morbid obesity, and CKD. She presented last night with a 4 day history of leg swelling, pain and weeping. She also has had nausea and diarrhea with generalized weakness. Today she is significantly more aware of where she is and what brought her to the hospital. She had 1 week of diarrhea and decreased PO intake. She felt, confused, fatigued, and depressed. When she walked she had leg pain and tingling where she felt unsafe to drive. Today she feels well. She has not had diarrhea since admission. Her legs also feel improved. She does not have any abdominal pain, chest pain, SOB, nausea or vomiting. Physical Exam Physical Exam: General: WN/WD, NAD HEENT: No scleral icterus, PERRLA, neck supple. Atraumatic. Cardiovascular: Irregular, Irregular, No murmurs/rubs/gallops Pulmonary: Clear to auscultation bilaterally, normal work of breathing, no rales, rhonchi Abdomen: Soft, nontender, nondistended, positive bowel sounds. Musculoskeletal: Atraumatic, trace edema, slight tenderness to palpation, erythematous papules/erosions noted on posterior left calf Results & Data Results & Data ([facility]) Vital Signs (Past 12 Hours) Vital Signs Temp Pulse Resp BP Pulse Ox O2 Del Method O2 Flow Rate 08/11/22 07:38 36.5 C 96 H 20 113/81 98 Room Air 1 08/11/22 03:27 36.5 C 96 H 20 97/57 L 98 Nasal Cannula 2.0 08/10/22 23:11 36.4 C L 93 H 20 99/63 L 93 Nasal Cannula 2.0
[2022-08-11 16:22] LABS: Uric Acid, Random Urine 22 mg/dL
--- NOTE | 2022-08-11 19:34 | Billing Data ---
Date of Service August 11, 2022 Coding Level of Care Code 63857 SUB INP/OBS CARE MIN
[2022-08-11] MEDS: MONTELUKAST SODIUM 10 MG TABLET PO SCH (22:07)
[2022-08-11] MEDS: LORazepam 0.5 MG TAB PO PRN (22:07)
[2022-08-11] MEDS: EUCERIN CR 120 GM JAR EXT PRN (22:11)
[2022-08-12 08:19] LABS: Hematocrit (blood only) 35.1 % (37.0-47.0); Mean Corpuscular Hemoglobin 23.1 pg (25.0-34.0); Mean Corpuscular Hgb Conc 28.5 g/dL (32.0-36.0); Mean Corpuscular Volume 81.3 fL (80.0-100.0); Mean Platelet Volume 12.2 fL (9.4-12.4); Nucleated RBC # (auto) 0.02 K/uL (0-0.12); Nucleated RBC % (auto) 0.3 %; Platelet Count 266 K/uL (130-400); RDW Coefficient of Variation 19.4 % (11.5-14.5); RDW Standard Deviation 55.8 fL (36.4-46.3); Red Blood Count 4.32 M/uL (4.20-5.40); White Blood Count 7.87 K/ul (4.8-10.8)
[2022-08-12 09:15] LABS: Albumin Globulin Ratio 1.2 (0.9-2); Albumin Level 3.6 gm/dl (3.4-5.0); BUN Creatinine Ratio 18.6 (10-20); Bilirubin,Total 0.8 mg/dl (0.2-1.0); Calcium 9.3 mg/dl (8.5-10.1); Creatinine Clr Calc Pharmacy 9.4 ml/min; Est GFR (African American) 9.2 ml/min; Est GFR (Non-African American) 7.9 ml/min; Globulin 2.9 gm/dl (2.5-4.0); Potassium 5.6 mmol/L (3.5-5.1); Total Protein 6.5 gm/dl (6.0-8.3)
[2022-08-12] MEDS: METOPROLOL SUCC 50MG EXT REL TAB PO SCH ×2 (09:35→21:02)
[2022-08-12 09:36] LABS: Adenovirus F 40/41 PCR Not Detected (NotDetected); Astrovirus PCR Not Detected (NotDetected); Campylobacter PCR Not Detected (NotDetected); Cryptosporidium PCR Not Detected (NotDetected); Cyclospora cayetanensis PCR Not Detected (NotDetected); Entamoeba histolytica PCR Not Detected (NotDetected); Enteroaggregative E.coli(EAEC) Not Detected (NotDetected); Enteropathogenic E.coli (EPEC) Not Detected (NotDetected); Enterotoxigenic E.coli (ETEC) Not Detected (NotDetected); Giardia lamblia PCR Not Detected (NotDetected); Norovirus GI/GII PCR Not Detected (NotDetected); Plesiomonas shigelloides PCR Not Detected (NotDetected); Rotavirus A PCR Not Detected (NotDetected); Salmonella PCR Not Detected (NotDetected); Sapovirus PCR Not Detected (NotDetected); Shiga-like Toxin E.coli (STEC) Not Detected (NotDetected); Shigella/Enteroinvasive E.coli Not Detected (NotDetected); Vibrio cholerae PCR Not Detected (NotDetected); Vibrio species PCR Not Detected (NotDetected); Yersinia enterocolitica PCR Not Detected (NotDetected)
[2022-08-12] MEDS: ATORVASTATIN 40 MG TAB PO SCH (09:36)
[2022-08-12] MEDS: PANTOprazole 40 MG TAB PO SCH (09:36)
[2022-08-12] MEDS: FLUoxetine HCL 20 MG CAP PO SCH (09:36)
[2022-08-12] MEDS: FLUTICASONE/VILANTEROL 200/25MCG 14 PUFFS/INHALER INH SCH (09:37)
[2022-08-12] MEDS: INSULIN ASPART PER UNIT SC SCH ×4 (09:37→21:00)
[2022-08-12] MEDS: HEPARIN SOD 5,000 UNIT/0.5 ML VIAL SQ SCH ×2 (10:32→21:01)
[2022-08-12] MEDS ORDERED: NORMOSOL-R 1,000 ML IV SCH ×2 (10:45→17:45)
[2022-08-12 11:12] LABS: HBSAG NON-REACTIVE (NON-REACTIVE); Hepatitis B Core Antibody Total NON-REACTIVE (NON-REACTIVE); Hepatitis B Surface Ab, Quant <5 mIU/mL (> OR = 10)
--- NOTE | 2022-08-12 11:36 | Hospitalist Progress Note ---
Date of Service August 12, 2022 Assessment & Plan (1) Acute hyperkalemia: Plan: Elevated potassium 2/2 acute renal failure, treating with insulin, glucose, and Lokelma x 1 2/2 improving currently 4.9 2/[address] changes on EKG Following serial labs and on telemetry (2) Acute kidney injury superimposed on CKD: Plan: Admission BUN 70 and Cr 3.63, CHESTER, etiology includes diarrhea vs. use of 40 mg Lasix daily and Entresto Hold metformin and Entresto - Nephrology consulted, - 08/09 1/2 NS + 75 mEq NaHCO3 @ 150 ml/hr for 1L twice - 2/2 currently holding fluids and encouraging PO intake - 08/11 BUN 70 and Creatinine 4.06 - 08/12 Creatinine 4.7, suspect due to poor PO intake held fluids 08/10 and 2 - 1 L Normosol 200 ml/hr, we appreciate nephrology expertise - follow serial labs (3) Bilateral edema of lower extremity: Plan: No evidence of DVT on today's Doppler - edema and pain improved (4) CHF (congestive heart failure): Plan: Pro BNP is elevated above 30,000, likely secondary to CHESTER vs. CHF Given 1 dose 20 mg Lasix on 08/09, currently holding Adrian catheter is in place Strict I's and O's and following blood pressure no signs of fluid overload (5) T2DM (type 2 diabetes mellitus): Plan: Most recent A1c is 6.9% Hold Metformin, Novolog Sliding Scale initiated Glycemic consult (pharmacy) BSG AC at bedtime Continue with diabetic diet (6) Hypertension: Plan: Hold Entresto and Losartan. Continue Toprol XL BID Admit to telemetry. Daily EKG x2 Troponin is within normal limits 11.7 PG/mL (7) COPD (chronic obstructive pulmonary disease): Plan: Patient reports a [id number] smoking history. She quit in the Patient is on fluticasone/vilanterol 200/25 mcg (Breo Ellipta) Chronic respiratory failure with hypoxia requiring supplemental oxygen (2L), goal sats above 90% Continue the Breo Ellipta while inpatient No acute respiratory complaints and no hypoxia with supplemental oxygen on admission (8) Atrial fibrillation with rapid ventricular response: Plan: Patient currently is in atrial fibrillation with a EKG but no complaints of palpitations or chest pain Patient is on metoprolol succinate ER 100 mg p.o. twice daily Patient is also anticoagulated with Eliquis 2.5 mg p.o. twice daily Plan Dispo: PCU/Tele Diet: Heart healthy, low potassium DVT Ppx: Apixaban 2.5 mg p.o. twice daily for DVT prophylaxis Consults: Nephro Admission and Anticipated Discharge Date Admission Date: August 08, 2022 Supervising Physician Co-Signing Physician Notes I personally examined the patient and verified all choi points of history and exam, discussed case, and agree with decision making with Antony Herrera MS4 and Dr Mckeon Feels okay. No shortness of breath. A little more fatigued today but otherwise no acute complaints. Updated to the best of my ability. Vitals noted, in general she is more fatigued but still awake and oriented no distress. HEENT normocephalic atraumatic mucous membranes moist. Lungs diminished throughout but clear to auscultation bilaterally no rales rhonchi or wheezes. A/P CHESTER - Most likely, volume depletion from diarrhea plus Lasix combined with reduced renal blood flow from Entresto as the culprit. PO intake -creatinine ila againagree with nephrology repeat fluid challenge. Continue to follow closely. Still suspect ATN, so still hopefully a good chance of renal recovery. Hyperkalemia - secondary to CHESTER -bumped up a little againcontinue to follow. Fluids. A. fib RVR -continue rate control and anticoagulation (chronically anticoagulated on Eliquiscurrently on heparin SQ twice daily in case any move for acute dialysis was needed chronic systolic CHF (otherwise known as chronic HFrEF) - holding entresto at this time, holding lasix since volume down. follow but no decompensation noted. Breathing okay and lungs are clear chronic respiratory failure with hypoxia - home O2. no appearance of respiratory distress Subjective Coco Sanchez is an 81 year old female with a pertinent past medical history of HFrEF, paroxysmal atrial fibrillation, SSS s/p pacemaker placement, COPD, pulmonary hypertension, DMII, hypertension, hyperlipidemia, peripheral arterial disease, morbid obesity, and CKD. She presented last night with a 4 day history of leg swelling, pain and weeping. She also has had nausea and diarrhea with generalized weakness. Today Coco Feels and appears well. She has had no diarrhea since admission. Her legs continue to feel tingly but the pain is less than compared to at admission. She does not have any abdominal pain, chest pain, SOB, nausea or vomiting. Physical Exam Physical Exam: General: WN/WD, NAD HEENT: No scleral icterus, PERRLA, neck supple. Atraumatic. Cardiovascular: Irregular, Irregular, No murmurs/rubs/gallops Pulmonary: Clear to auscultation bilaterally, normal work of breathing, no rales, rhonchi Abdomen: Soft, nontender, nondistended, positive bowel sounds. Musculoskeletal: Atraumatic, trace edema, slight tenderness to palpation left leg, erythematous papules/erosions noted on posterior left calf Results & Data Results & Data ([facility]) Vital Signs (Past 12 Hours) Vital Signs Temp Pulse Pulse Resp BP Pulse Ox O2 Del Method 08/12/22 11:16 36.3 C L 105 H 16 94/63 L 95 Nasal Cannula 08/12/22 07:30 36.5 C 99 H 18 93/62 L 95 Room Air 08/12/22 07:23 457 H 08/12/22 02:30 36.6 C 103 H 18 90/56 L 94 Room Air O2 Flow Rate 08/12/22 11:16 2 08/12/22 07:30 08/12/22 07:23 08/12/22 02:30
--- NOTE | 2022-08-12 14:47 | Nephrology Progress Note ---
Date of Service August 12, 2022 Assessment & Plan (1) CHESTER (acute kidney injury): Plan: Unfortunately, worsening of creatinine in past 24 hours with associated rise in potassium. No emergent indication for dialysis. Volume status remains acceptable. Will challenge with additional IVF and repeat labs. Potential indications for dialysis discussed with Coco and her granddaughter they expressed understanding and would like to proceed if indicated. Medications appropriate for kidney dysfunction. Document strict I/O's. Adrian remains in place. Hold metformin and Entresto. (2) Acute hyperkalemia: Plan: Remains on tele monitor. Low potassium diet. IVF to encourage urine output. Repeat labs this afternoon. (3) CKD stage G3b/A3, GFR 30-44 and albumin creatinine ratio >300 mg/g: Plan: Baseline creatinine 1.3-1.5 mg/dL. MACR 308 mcg/mg. Close outpatient follow up will be required. (4) Bilateral edema of lower extremity: Plan: Chronic. Noted history of R CHF and pulmonary hypertension. Diuretics held. Admission and Anticipated Discharge Date Admission Date: August 08, 2022 Subjective No acute events overnight. No events on monitor. Remains in afib at ~100 bpm. BP stable. Coco denies any complaints. She was seen and evaluated with her granddaughter at the bedside. We discussed goals of care. Appetite remains poor. No diarrhea. No nausea or vomiting. Review of Systems Review of Systems: All systems reviewed & are unremarkable except as noted in HPI & below Physical Exam Constitutional: well developed, + obese and + frail appearing; no acute distress Eyes: + anicteric sclerae; no corneal abnormality ENMT: Mouth: + lip abnormality and + dry oral mucous membranes Neck: normal visual inspection and trachea midline Respiratory: normal respiratory effort Auscultation: lungs clear to auscu ltation bilaterally and + diminished lung sounds Cardiovascular: Rate/Rhythm: + irregularly irregular Heart Sounds: normal S1 and normal S2 Extremities: + edema Musculoskeletal: Extremities: no cyanosis and no clubbing Skin: + turgor decreased; no jaundice Neurologic: Motor/Sensory: no tremor and no asterixis Psychiatric: Orientation: alert and oriented x 3 Results & Data ([facility]) Vital Signs (Past 12 Hours) Vital Signs Temp Pulse Pulse Resp BP Pulse Ox O2 Del Method 08/12/22 11:16 36.3 C L 105 H 16 94/63 L 95 Nasal Cannula 08/12/22 07:30 36.5 C 99 H 18 93/62 L 95 Room Air 08/12/22 07:23 457 H O2 Flow Rate 08/12/22 11:16 2 08/12/22 07:30 08/12/22 07:23 Laboratory Results Laboratory Results - last 24 hr 08/08/22 08/10/22 08/11/22 17:10 12:11 16:29 WBC RBC Hgb Hct MCV MCH MCHC RDW Std Deviation RDW Coeff of Balbina Plt Count MPV Absolute Nucleated RBC Nucleated RBC % (auto) Sodium Potassium Chloride Carbon Dioxide Anion Gap BUN Creatinine Est Cr Clr Drug Dosing Est GFR ( Amer) Est GFR (Non-Af Amer) BUN/Creatinine Ratio Glucose POC Glucose 133 H Calcium Total Bilirubin AST ALT Alkaline Phosphatase Total Protein Albumin Globulin Albumin/Globulin Ratio Ur Random Uric Acid 22 Stl C. cayetanensis PCR Stool Rotavirus A PCR Stl Adenov F 40/41 PCR Stool Astrovirus (PCR) Stool Campylobacter PCR Stl C. diff Tox B Gene Stool Cryptosporidium PCR Stl E.coli Shiga Tox PCR Stl Enterotoxigenic E PCR Stool EPEC (PCR) Stool EAEC (PCR) Stl E. histolytica PCR Stool Giardia Lamblia PCR Stool Salmonella PCR Stool Sapovirus (PCR) Stl P. shigelloides PCR Stl Shigella/EIEC PCR St Y.enterocolitica PCR Stool Vibrio (PCR) Stl Vibrio cholerae PCR Stl Norovirus GI/GII PCR Hep Bs Antigen NON-REACTIVE Hep Bs Ag Confirmation TNP Hep Bs Antibody, Quant <5 L Hep B Core Total Ab NON-REACTIVE 08/11/22 08/12/22 08/12/22 20:33 07:35 07:35 WBC 7.87 RBC 4.32 Hgb 10.0 L Hct 35.1 L MCV 81.3 MCH 23.1 L MCHC 28.5 L RDW Std Deviation 55.8 H RDW Coeff of Balbina 19.4 H Plt Count 266 MPV 12.2 Absolute Nucleated RBC 0.02 Nucleated RBC % (auto) 0.3 Sodium 137 Potassium 5.6 H Chloride 97 L Carbon Dioxide 27 Anion Gap 13 H BUN 88 H Creatinine 4.74 H* D Est Cr Clr Drug Dosing 9.4 Est GFR ( Amer) 9.2 Est GFR (Non-Af Amer) 7.9 BUN/Creatinine Ratio 18.6 Glucose 103 H POC Glucose 152 H Calcium 9.3 Total Bilirubin 0.8 AST 21 ALT 15 Alkaline Phosphatase 141 H Total Protein 6.5 Albumin 3.6 Globulin 2.9 Albumin/Globulin Ratio 1.2 Ur Random Uric Acid Stl C. cayetanensis PCR Stool Rotavirus A PCR Stl Adenov F 40/41 PCR Stool Astrovirus (PCR) Stool Campylobacter PCR Stl C. diff Tox B Gene Stool Cryptosporidium PCR Stl E.coli Shiga Tox PCR Stl Enterotoxigenic E PCR Stool EPEC (PCR) Stool EAEC (PCR) Stl E. histolytica PCR Stool Giardia Lamblia PCR Stool Salmonella PCR Stool Sapovirus (PCR) Stl P. shigelloides PCR Stl Shigella/EIEC PCR St Y.enterocolitica PCR Stool Vibrio (PCR) Stl Vibrio cholerae PCR Stl Norovirus GI/GII PCR Hep Bs Antigen Hep Bs Ag Confirmation Hep Bs Antibody, Quant Hep B Core Total Ab 08/12/22 08/12/22 08/12/22 07:45 12:01 Unknown WBC RBC Hgb Hct MCV MCH MCHC RDW Std Deviation RDW Coeff of Balbina Plt Count MPV Absolute Nucleated RBC Nucleated RBC % (auto) Sodium Potassium Chloride Carbon Dioxide Anion Gap BUN Creatinine Est Cr Clr Drug Dosing Est GFR ( Amer) Est GFR (Non-Af Amer) BUN/Creatinine Ratio Glucose POC Glucose 112 H 102 H Calcium Total Bilirubin AST ALT Alkaline Phosphatase Total Protein Albumin Globulin Albumin/Globulin Ratio Ur Random Uric Acid Stl C. cayetanensis PCR Stool Rotavirus A PCR Stl Adenov F PCR Stool Astrovirus (PCR) Stool Campylobacter PCR Stl C. diff Tox B Gene TNP Stool Cryptosporidium PCR Stl E.coli Shiga Tox PCR Stl Enterotoxigenic E PCR Stool EPEC (PCR) Stool EAEC (PCR) Stl E. histolytica PCR Stool Giardia Lamblia PCR Stool Salmonella PCR Stool Sapovirus (PCR) Stl P. shigelloides PCR Stl Shigella/EIEC PCR St Y.enterocolitica PCR Stool Vibrio (PCR) Stl Vibrio cholerae PCR Stl Norovirus GI/GII PCR Hep Bs Antigen Hep Bs Ag Confirmation Hep Bs Antibody, Quant Hep B Core Total Ab 08/12/22 Unknown WBC RBC Hgb Hct MCV MCH MCHC RDW Std Deviation RDW Coeff of Balbina Plt Count MPV Absolute Nucleated RBC Nucleated RBC % (auto) Sodium Potassium Chloride Carbon Dioxide Anion Gap BUN Creatinine Est Cr Clr Drug Dosing Est GFR ( Amer) Est GFR (Non-Af Amer) BUN/Creatinine Ratio Glucose POC Glucose Calcium Total Bilirubin AST ALT Alkaline Phosphatase Total Protein Albumin Globulin Albumin/Globulin Ratio Ur Random Uric Acid Stl C. cayetanensis PCR Not Detected Stool Rotavirus A PCR Not Detected Stl Adenov F 40/41 PCR Not Detected Stool Astrovirus (PCR) Not Detected Stool Campylobacter PCR Not Detected Stl C. diff Tox B Gene Stool Cryptosporidium PCR Not Detected Stl E.coli Shiga Tox PCR Not Detected Stl Enterotoxigenic E PCR Not Detected Stool EPEC (PCR) Not Detected Stool EAEC (PCR) Not Detected Stl E. histolytica PCR Not Detected Stool Giardia Lamblia PCR Not Detected Stool Salmonella PCR Not Detected Stool Sapovirus (PCR) Not Detected Stl P. shigelloides PCR Not Detected Stl Shigella/EIEC PCR Not Detected St Y.enterocolitica PCR Not Detected Stool Vibrio (PCR) Not Detected Stl Vibrio cholerae PCR Not Detected Stl Norovirus GI/GII PCR Not Detected Hep Bs Antigen Hep Bs Ag Confirmation Hep Bs Antibody, Quant Hep B Core Total Ab PG Care Time/CCT Total # of Minutes Spent Total Time Spent with Patient: Total time spent is greater than 50% in coordination of care (as documented) at patient's floor/unit and/or counseling patient: Coding Level of Care Code 97037 SUB INP/OBS CARE 3/50MIN Diagnoses CHESTER (acute kidney injury) N17.9 Acute hyperkalemia E87.5 CKD stage G3b/A3, GFR 30-44 and albumin creatinine ratio >300 mg/g N18.32 Bilateral edema of lower extremity R60.0
[2022-08-12 15:21] LABS: Calcium 9.2 mg/dl (8.5-10.1); Potassium 5.2 mmol/L (3.5-5.1)
[2022-08-12 15:26] LABS: BUN Creatinine Ratio 20.2 (10-20); Creatinine Clr Calc Pharmacy 10.2 ml/min; Est GFR (African American) 10.2 ml/min; Est GFR (Non-African American) 8.8 ml/min
[2022-08-12] MEDS: LACTATED RINGER'S 1,000 ML IV SCH ×2 (16:23→16:24)
--- NOTE | 2022-08-12 18:27 | Billing Data ---
Date of Service August 12, 2022 Coding Level of Care Code 79671 SUB INP/OBS CARE
--- NOTE | 2022-08-12 18:27 | Billing Data ---
Date of Service August 12, 2022 Coding Level of Care Code 14075 SUB INP/OBS CARE
[2022-08-12] MEDS: LORazepam 0.5 MG TAB PO PRN (21:01)
[2022-08-12] MEDS: MONTELUKAST SODIUM 10 MG TABLET PO SCH (21:04)
[2022-08-13 06:19] LABS: Hematocrit (blood only) 34.4 % (37.0-47.0); Hemoglobin 9.9 g/dl (12.0-16.0); Mean Corpuscular Hemoglobin 23.2 pg (25.0-34.0); Mean Corpuscular Hgb Conc 28.8 g/dL (32.0-36.0); Mean Corpuscular Volume 80.8 fL (80.0-100.0); Mean Platelet Volume 12.3 fL (9.4-12.4); Nucleated RBC # (auto) 0.02 K/uL (0-0.12); Nucleated RBC % (auto) 0.2 %; Platelet Count 265 K/uL (130-400); RDW Coefficient of Variation 19.9 % (11.5-14.5); RDW Standard Deviation 56.4 fL (36.4-46.3); Red Blood Count 4.26 M/uL (4.20-5.40)
[2022-08-13 06:44] LABS: BUN Creatinine Ratio 20.7 (10-20); Calcium 9.3 mg/dl (8.5-10.1); Creatinine Clr Calc Pharmacy 11.1 ml/min; Est GFR (African American) 11.3 ml/min; Est GFR (Non-African American) 9.7 ml/min; Potassium 4.8 mmol/L (3.5-5.1)
--- NOTE | 2022-08-13 08:03 | Hospitalist Progress Note ---
Date of Service August 13, 2022 Assessment & Plan (1) Acute hyperkalemia: (2) Acute kidney injury superimposed on CKD: (3) Bilateral edema of lower extremity: (4) CHF (congestive heart failure): (5) T2DM (type 2 diabetes mellitus): (6) Hypertension: (7) COPD (chronic obstructive pulmonary disease): (8) Atrial fibrillation with rapid ventricular response: Plan Acute hyperkalemia (Resolved) -Elevated potassium 2/2 acute renal failure, treating with insulin, glucose, and Lokelma x 1 -08/13 improving and is currently 4.8 -No ST changes on EKG -Following serial labs and on telemetry Acute kidney injury superimposed on CKD Admission BUN 70 and Cr 3.63, CHESTER, etiology includes diarrhea vs. use of 40 mg Lasix daily and Entresto Hold metformin and Entresto - Nephrology consulted, - 08/09 07/11 NS + 75 mEq NaHCO3 @ 150 ml/hr for 1L twice - 08/11 currently holding fluids and encouraging PO intake - 08/11 BUN 70 and Creatinine 4.06 - 08/12 Creatinine 4.7, suspect due to poor PO intake held fluids 08/10 and 08/11 - 08/13 creatinine 4.0 - Given 2L of Normosol on 08/12. Given 1L LR at 125 mL/hr on 08/13. Will reassess tomorrow if patient needs further amount of fluids. - follow serial labs -Nephrology consulted and states that CHESTER most likely secondary to dehydration in the setting of ARB therapy Bilateral edema of lower extremity No evidence of DVT on today's Doppler - edema and pain improved CHF (congestive heart failure): -Pro BNP is elevated above 30,000, likely secondary to CHESTER vs. CHF -Given 1 dose 20 mg Lasix on 08/09, currently holding -Currently on 2 L nasal cannula -Adrian catheter is in place -Strict I's and O's and following blood pressure -no signs of fluid overload T2DM (type 2 diabetes mellitus) -Most recent A1c is 6.9% -Hold Metformin, Novolog Sliding Scale initiated -Glycemic consult (pharmacy) -BSG AC at bedtime -Continue with diabetic diet Hypertension -Hold Entresto and Losartan. Continue Toprol XL BID -Admit to telemetry. -Daily EKG x2 -Troponin is within normal limits 11.7 PG/mL COPD (chronic obstructive pulmonary disease) -Patient reports a 16-tdbf-piek smoking history. She quit in the -Patient is on fluticasone/vilanterol 200/25 mcg (Breo Ellipta) -Chronic respiratory failure with hypoxia requiring supplemental oxygen (2L), goal sats above 90% -Continue the Breo Ellipta while inpatient -No acute respiratory complaints and no hypoxia with supplemental oxygen on admission Atrial fibrillation with rapid ventricular response -Patient currently is in atrial fibrillation with a EKG but no complaints of palpitations or chest pain -Patient is on metoprolol succinate ER 100 mg p.o. twice daily -Patient is also anticoagulated with Eliquis 2.5 mg p.o. twice daily Dispo: PCU/Tele Diet: Heart healthy, low potassium DVT Ppx: Apixaban 2.5 mg p.o. twice daily for DVT prophylaxis Consults: Nephro Admission and Anticipated Discharge Date Admission Date: August 08, 2022 Supervising Physician Co-Signing Physician Notes I personally examined the patient and verified all choi points of history and exam, discussed case, and agree with decision making with Dr Woo A bit more groggy when I see her. No new issues identified by resident physician, case discussed with nursingpatient was actually doing pretty well this morning compared to yesterdayshe was up and ate fairly well for breakfast and lunchand seems to just be very tired whenever I see her. Vitals noted, in general she is in no distress. HEENT normocephalic atraumatic mucous membranes moist. Lungs diminished throughout but clear to auscultation bilaterally no rales rhonchi or wheezes. A/P CHESTER/ARF- Most likely, volume depletion from diarrhea plus Lasix combined with reduced renal blood flow from Entresto as the culprit. Resumed IV fluids given poor p.o. intakep.o. intake a bit better today, but give another liter of fluids.. Still suspect ATN, so still hopefully a good chance of renal recovery. Hyperkalemia - secondary to CHESTER -4.8 today A. fib RVR -continue rate control and anticoagulationrates reasonable today (chronically anticoagulated on Eliquiscurrently on heparin SQ twice daily in case any move for acute dialysis was needed) chronic systolic CHF (otherwise known as chronic HFrEF) - holding entresto at t his time, holding lasix since volume down. follow but no decompensation noted. Breathing okay and lungs are clear each day thus far chronic respiratory failure with hypoxia - home O2. no appearance of respiratory distress Subjective Patient is hard of hearing. Had to discuss with writing questions on paper. States that she feels good today. She also states that she 'feels more alert" as well as states that her breathing is better and that her pain/tingling in her leg is getting better. She states that the pain at this time is in the left heel and right little toe. She denies any shortness of breath, chills, abdominal pain. Review of Systems Review of Systems: All systems reviewed & are unremarkable except as noted in HPI & below Physical Exam Physical Exam: General: WN/WD, NAD HEENT: No scleral icterus, PERRLA, neck supple. Atraumatic. Cardiovascular: Irregular, Irregular, No murmurs/rubs/gallops Pulmonary: Clear to auscultation bilaterally, normal work of breathing, no rales, rhonchi Abdomen: Soft, nontender, nondistended, positive bowel sounds. Musculoskeletal: Atraumatic, trace edema, slight tenderness to palpation left leg, erythematous papules/erosions noted on posterior left calf Results & Data Results & Data ([facility]) Vital Signs (Past 12 Hours) Vital Signs Temp Pulse Pulse Resp BP Pulse Ox O2 Del Method 08/13/22 07:45 36.4 C L 91 H 16 99/66 L 95 Nasal Cannula 08/12/22 22:02 91 H 08/13/22 02:51 36.8 C 71 16 99/63 L 98 Nasal Cannula 08/12/22 23:00 36.6 C 73 20 93/55 L 96 Nasal Cannula 08/12/22 19:55 Nasal Cannula O2 Flow Rate 08/13/22 07:45 2 08/12/22 22:02 08/13/22 02:51 2 08/12/22 23:00 08/12/22 19:55 2 Resident Activity Tracking Resident Involvement: Resident Care Provided Care Provided: Adult [facility] Medicine
[2022-08-13] MEDS: INSULIN ASPART PER UNIT SC SCH ×4 (08:35→21:20)
[2022-08-13] MEDS: METOPROLOL SUCC 50MG EXT REL TAB PO SCH ×2 (08:36→21:21)
[2022-08-13] MEDS: PANTOprazole 40 MG TAB PO SCH (08:36)
[2022-08-13] MEDS: FLUoxetine HCL 20 MG CAP PO SCH (08:37)
[2022-08-13] MEDS: ATORVASTATIN 40 MG TAB PO SCH (08:37)
[2022-08-13] MEDS ORDERED: LACTATED RINGER'S 1,000 ML IV SCH (09:30)
--- NOTE | 2022-08-13 09:32 | Nephrology Progress Note ---
Date of Service August 13, 2022 Assessment & Plan (1) CHESTER (acute kidney injury): Plan: * CHESTER due to dehydration in the setting of ARB therapy * 08/09/22 renal US: 9.5 cm kidneys, no hydro * UO has improved. Patient is now nonoliguric * Cr improved from 4.7 to 4.0 over last 48 hours * Volume status and electrolyte balance remain acceptable. No acute indication for HD today * Continue hydration w/ IV LR * Monitor PRP, UO * Continue to hold Metformin and Entresto (2) CKD stage G3b/A3, GFR 30-44 and albumin creatinine ratio >300 mg/g: Plan: * Baseline creatinine 1.3-1.5 mg/dL. MACR 308 mcg/mg (3) Ischemic cardiomyopathy: Plan: * 06/30 Echocardiogram: LVEF 20-30%, RVSP 40, mod TR, dilated IVC Admission and Anticipated Discharge Date Admission Date: August 08, 2022 Subjective Ms. Sanchez was seen in her room this morning. She is extremely [place] and required that I write out all my questions. Ms. Sanchez indicated that she felt well and had no new concerns. Review of Systems Constitutional: no fever Eyes: no problem reported Ear, Nose, Mouth, Throat: no problem reported Respiratory: no dyspnea Cardiovascular: no chest pain Gastrointestinal: no abdominal pain Genitourinary: no dysuria Physical Exam Constitutional: not in distress Eyes: PERRL, conjunctivae normal, anicteric sclerae ENMT: external ear and nose normal, oropharynx normal Neck: trachea midline, no thyromegaly Respiratory: normal respiratory effort, lungs clear to auscultation Cardiovascular: RRR, no murmur, no edema Gastrointestinal (Abdomen): normal bowel sounds, soft, nontender, no hepatosplenomegaly Neurologic: Speech / Cognition: normal speech and normal cognition [place] Results & Data ([facility]) Vital Signs (Past 12 Hours) Vital Signs Temp Pulse Pulse Resp BP Pulse Ox O2 Del Method 08/13/22 07:45 36.4 C L 91 H 16 99/66 L 95 Nasal Cannula 08/12/22 22:02 91 H 08/13/22 02:51 36.8 C 71 16 99/63 L 98 Nasal Cannula 08/12/22 23:00 36.6 C 73 20 93/55 L 96 Nasal Cannula O2 Flow Rate 08/13/22 07:45 2 08/12/22 22:02 08/13/22 02:51 2 08/12/22 23:00 Laboratory Results Laboratory Tests 08/13/22 08/13/22 05:43 05:43 WBC 8.40 Hgb 9.9 L Hct 34.4 L Plt Count 265 Sodium 137 Potassium 4.8 Chloride 97 L Carbon Dioxide 26 BUN 83 H Creatinine 4.01 H D Glucose 81 PG Care Time/CCT Total # of Minutes Spent Total Time Spent with Patient: Total time spent is greater than 50% in coordination of care (as documented) at patient's floor/unit and/or counseling patient: Coding Level of Care Code 43057 SUB INP/OBS CARE 3/50MIN Diagnoses CHESTER (acute kidney injury) N17.9 CKD stage G3b/A3, GFR 30-44 and albumin creatinine ratio >300 mg/g N18.32 Ischemic cardiomyopathy I25.5
[2022-08-13] MEDS: FLUTICASONE/VILANTEROL 200/25MCG 14 PUFFS/INHALER INH SCH (09:42)
[2022-08-13] MEDS: HEPARIN SOD 5,000 UNIT/0.5 ML VIAL SQ SCH ×2 (09:42→21:21)
--- NOTE | 2022-08-13 16:58 | Billing Data ---
Date of Service August 13, 2022 Coding Level of Care Code 33646 SUB INP/OBS CARE MIN
[2022-08-13] MEDS ORDERED: NYSTATIN POWDER 15GM BTL EXT PRN (18:56)
[2022-08-13] MEDS: LORazepam 0.5 MG TAB PO PRN (21:20)
[2022-08-13] MEDS: MONTELUKAST SODIUM 10 MG TABLET PO SCH (21:21)
[2022-08-14 06:16] LABS: Hematocrit (blood only) 33.7 % (37.0-47.0); Hemoglobin 9.7 g/dl (12.0-16.0); Mean Corpuscular Hgb Conc 28.8 g/dL (32.0-36.0); Mean Corpuscular Volume 79.9 fL (80.0-100.0); Mean Platelet Volume 11.5 fL (9.4-12.4); Nucleated RBC # (auto) 0.04 K/uL (0-0.12); Nucleated RBC % (auto) 0.5 %; Platelet Count 237 K/uL (130-400); RDW Coefficient of Variation 19.5 % (11.5-14.5); Red Blood Count 4.22 M/uL (4.20-5.40); White Blood Count 8.46 K/ul (4.8-10.8)
[2022-08-14 06:21] LABS: Calcium 9.6 mg/dl (8.5-10.1); Potassium 4.5 mmol/L (3.5-5.1)
[2022-08-14 06:27] LABS: BUN Creatinine Ratio 22.9 (10-20); Est GFR (African American) 12.4 ml/min; Est GFR (Non-African American) 10.7 ml/min
--- NOTE | 2022-08-14 06:59 | Hospitalist Progress Note ---
Date of Service August 14, 2022 Assessment & Plan (1) Acute hyperkalemia: (2) Acute kidney injury superimposed on CKD: (3) Bilateral edema of lower extremity: (4) CHF (congestive heart failure): (5) T2DM (type 2 diabetes mellitus): (6) Hypertension: (7) COPD (chronic obstructive pulmonary disease): (8) Atrial fibrillation with rapid ventricular response: Plan 08/14: Patient's creatinine continues to improve. Currently off IV fluids, encourage oral hydration. Patient symptoms continue to improve, we will work on getting up and out of bed with physical therapy. Will need inpatient rehab after hospital stay. [facility] and wants to work on going somewhere else. Acute hyperkalemia (Resolved) -Elevated potassium 2/2 acute renal failure, treating with insulin, glucose, and Lokelma x 1 -4.5 on 08/14. -No ST changes on EKG -Following serial labs and on telemetry Acute kidney injury superimposed on CKD Admission BUN 70 and Cr 3.63, CHESTER, etiology includes diarrhea vs. use of 40 mg Lasix daily and Entresto Hold metformin and Entresto - Baseline creatinine 1.31.5. - Nephrology consulted, - 08/09/ NS + 75 mEq NaHCO3 @ 150 ml/hr for 1L twice - 08/11 currently holding fluids and encouraging PO intake - 08/11 BUN 70 and Creatinine 4.06 - 08/12 Creatinine 4.7, suspect due to poor PO intake held fluids 08/10 and 08/11 - 08/13 creatinine 4.0, on 08/14 creatinine has improved to 3.71. - Given 2L of Normosol on 08/12. Given 1L LR at 125 mL/hr on 08/13. - IV fluids have been stopped. Encourage oral hydration. - follow serial labs - Nephrology consulted and states that CHESTER most likely secondary to dehydration in the setting of ARB therapy recommends to continue hydration with IV LR. Bilateral edema of lower extremity No evidence of DVT on today's Doppler - edema and pain improved CHFrEF (congestive heart failure): -Pro BNP is elevated above 30,000, likely secondary to CHESTER vs. CHF -Given 1 dose 20 mg Lasix on 08/09, currently holding -Currently on 2 L nasal cannula -Adrian catheter is in place -Strict I's and O's and following blood pressure -no signs of fluid overload T2DM (type 2 diabetes mellitus) -Most recent A1c is 6.9% -Hold Metformin, Novolog Sliding Scale initiated -Glycemic consult (pharmacy) -BSG AC at bedtime -Continue with diabetic diet Hypertension -Hold Entresto and Losartan. Continue Toprol XL BID -Admit to telemetry. -Daily EKG x2 -Troponin is within normal limits 11.7 PG/mL COPD (chronic obstructive pulmonary disease) -Patient reports a 90-qjzc-mbsf smoking history. She quit in the -Patient is on fluticasone/vilanterol 200/25 mcg (Breo Ellipta) -Chronic respiratory failure with hypoxia requiring supplemental oxygen (2L), goal sats above 90% -Continue the Breo Ellipta while inpatient -No acute respiratory complaints and no hypoxia with supplemental oxygen on admission Atrial fibrillation with rapid ventricular response -Patient currently is in atrial fibrillation with a EKG but no complaints of palpitations or chest pain -Patient is on metoprolol succinate ER 100 mg p.o. twice daily -Patient is also anticoagulated with Eliquis 2.5 mg p.o. twice daily Dispo: PCU/Tele Diet: Heart healthy, low potassium DVT Ppx: Apixaban 2.5 mg p.o. twice daily for DVT prophylaxis Consults: Nephro Admission and Anticipated Discharge Date Admission Date: August 08, 2022 Supervising Physician Co-Signing Physician Notes I personally examined the patient and verified all choi points of history and exam, discussed case, and agree with decision making with Dr Woo No complaints or problems. Discussed with nursingand while she is eating and drinking some, definitely not drinking enough. Vitals noted, in general she is in no distress. HEENT normocephalic atraumatic mucous membranes moist. Breathing unlabored no accessory muscle use no conversational dyspnea good effort on room air A/P CHESTER/ARF- Most likely, volume depletion from diarrhea plus Lasix combined with reduced renal blood flow from Entresto as the culprit. Additional 1 L IV fluids given poor p.o. intakeand continue to encourage p.o.. Still suspect ATN, so s till hopefully a good chance of renal recovery. Hyperkalemia - secondary to CHESTER -4.5 today A. fib RVR -continue rate control and anticoagulationrates reasonable today (chronically anticoagulated on Eliquiscurrently on heparin SQ twice daily in case any move for acute dialysis was needed) chronic systolic CHF (otherwise known as chronic HFrEF) - holding entresto at this time, holding lasix since volume down. follow but no decompensation noted. chronic respiratory failure with hypoxia - home O2. no appearance of respiratory distress Subjective Patient was seen bedside this morning and states that she is feeling good. She does have concerns that about her walking. She states that she is truly unsure if she will ever get back to walking on her own again. States that she is willing to try walking once PT comes in severe. She also states that she does not want to go to [facility] after her stay and would like options about other inpatient rehabs. Review of Systems 2 Review of Systems: All systems reviewed & are unremarkable except as noted in HPI & below Physical Exam Constitutional: not in distress Eyes: PERRL, conjunctivae normal, anicteric sclerae ENMT: external ear and nose normal, oropharynx normal Neck: trachea midline, no thyromegaly Respiratory: normal respiratory effort, lungs clear to auscultation Cardiovascular: RRR, no murmur, no edema Gastrointestinal (Abdomen): normal bowel sounds, soft, nontender, no hepatosplenomegaly Neurologic: Speech / Cognition: normal speech and normal cognition Results & Data Results & Data ([facility]) Vital Signs (Past 12 Hours) Vital Signs Temp Pulse Pulse Resp BP BP Pulse Ox 08/14/22 03:32 97 H 08/13/22 22:02 93 H 08/14/22 03:11 36.6 C 98 H 105/55 L 97 08/13/22 22:59 36.6 C 65 89/62 L 100 08/13/22 19:27 08/13/22 19:23 36.5 C 90 16 131/81 99 O2 Del Method O2 Flow Rate 08/14/22 03:32 08/13/22 22:02 08/14/22 03:11 Nasal Cannula 2 08/13/22 22:59 Nasal Cannula 2 08/13/22 19:27 Nasal Cannula 2 08/13/22 19:23 Nasal Cannula 2 Resident Activity Tracking Resident Involvement: Resident Care Provided Care Provided: Adult Hospital Medicine
[2022-08-14] MEDS: INSULIN ASPART PER UNIT SC SCH ×4 (08:56→22:02)
[2022-08-14] MEDS: FLUoxetine HCL 20 MG CAP PO SCH (09:02)
[2022-08-14] MEDS: PANTOprazole 40 MG TAB PO SCH (09:03)
[2022-08-14] MEDS: METOPROLOL SUCC 50MG EXT REL TAB PO SCH ×2 (09:03→22:02)
[2022-08-14] MEDS: ATORVASTATIN 40 MG TAB PO SCH (09:03)
--- NOTE | 2022-08-14 09:09 | Nephrology Progress Note ---
Date of Service August 14, 2022 Assessment & Plan (1) CHESTER (acute kidney injury): Plan: * CHESTER due to dehydration in the setting of ARB therapy * 08/09/22 renal US: 9.5 cm kidneys, no hydro * UO has improved. Patient is now nonoliguric * Cr improved from 4.0-->3.7 over last 24 hours * Volume status and electrolyte balance remain acceptable. No acute indication for HD today * IV LR has been stopped. Encourage oral hydration * Monitor PRP, UO * Continue to hold Metformin and Entresto (2) CKD stage G3b/A3, GFR 30-44 and albumin creatinine ratio >300 mg/g: Plan: * Baseline creatinine 1.3-1.5 mg/dL. MACR 308 mcg/mg (3) Ischemic cardiomyopathy: Plan: * 06/30 Echocardiogram: LVEF 20-30%, RVSP 40, mod TR, dilated IVC Admission and Anticipated Discharge Date Admission Date: August 08, 2022 Subjective Ms. Sanchez was seen in her hospital room this morning. She is extremely [place] and required that I write out all my questions. Ms. Sanchez indicated that she felt well and had no new concerns. Review of Systems Constitutional: no fever Eyes: no problem reported Ear, Nose, Mouth, Throat: no problem reported Respiratory: no dyspnea Cardiovascular: no chest pain Gastrointestinal: no abdominal pain Genitourinary: no dysuria Physical Exam Constitutional: not in distress Eyes: PERRL, conjunctivae normal, anicteric sclerae ENMT: external ear and nose normal, oropharynx normal Neck: trachea midline, no thyromegaly Respiratory: normal respiratory effort, lungs clear to auscultation Cardiovascular: RRR, no murmur, no edema Gastrointestinal (Abdomen): normal bowel sounds, soft, nontender, no hepatosplenomegaly Neurologic: Speech / Cognition: normal speech and normal cognition Results & Data ([facility]) Vital Signs (Past 12 Hours) Vital Signs Temp Pulse Pulse Resp BP Pulse Ox O2 Del Method 08/14/22 08:25 92 H 19 101/71 96 Room Air 08/14/22 07:00 94 H 08/14/22 03:32 97 H 08/13/22 22:02 93 H 08/14/22 03:11 36.6 C 98 H 105/55 L 97 Nasal Cannula 08/13/22 22:59 36.6 C 65 89/62 L 100 Nasal Cannula O2 Flow Rate 08/14/22 08:25 08/14/22 07:00 08/14/22 03:32 08/13/22 22:02 08/14/22 03:11 2 08/13/22 22:59 2 Laboratory Results Laboratory Tests 08/14/22 08/14/22 05:28 05:28 WBC 8.46 Hgb 9.7 L Hct 33.7 L Plt Count 237 Sodium 137 Potassium 4.5 Chloride 98 Carbon Dioxide 27 BUN 85 H Creatinine 3.71 H D Glucose 91 PG Care Time/CCT Total # of Minutes Spent Total Time Spent with Patient: Total time spent is greater than 50% in coordination of care (as documented) at patient's floor/unit and/or counseling patient: Coding Level of Care Code 22795 SUB INP/OBS CARE 3/50MIN Diagnoses CHESTER (acute kidney injury) N17.9 CKD stage G3b/A3, GFR 30-44 and albumin creatinine ratio >300 mg/g N18.32 Ischemic cardiomyopathy I25.5
[2022-08-14] MEDS: FLUTICASONE/VILANTEROL 200/25MCG 14 PUFFS/INHALER INH SCH (10:05)
[2022-08-14] MEDS: HEPARIN SOD 5,000 UNIT/0.5 ML VIAL SQ SCH ×2 (10:05→22:03)
[2022-08-14] MEDS: ACETAMINOPHEN 325 MG TAB PO PRN ×2 (11:32→22:16)
--- NOTE | 2022-08-14 15:10 | Billing Data ---
Date of Service August 14, 2022 Coding Level of Care Code 55453 SUB INP/OBS CARE MIN
--- NOTE | 2022-08-14 15:11 | Billing Data ---
Date of Service August 14, 2022 Coding Level of Care Code 57037 SUB INP/OBS CARE MIN
[2022-08-14] MEDS ORDERED: LACTATED RINGER'S 1,000 ML IV SCH (15:15)
[2022-08-14] MEDS: MONTELUKAST SODIUM 10 MG TABLET PO SCH (22:02)
[2022-08-15 06:17] LABS: Hematocrit (blood only) 32.4 % (37.0-47.0); Hemoglobin 9.4 g/dl (12.0-16.0); Mean Corpuscular Volume 79.2 fL (80.0-100.0); Mean Platelet Volume 12.3 fL (9.4-12.4); Nucleated RBC # (auto) 0.03 K/uL (0-0.12); Nucleated RBC % (auto) 0.4 %; Platelet Count 268 K/uL (130-400); RDW Coefficient of Variation 19.4 % (11.5-14.5); RDW Standard Deviation 54.7 fL (36.4-46.3); Red Blood Count 4.09 M/uL (4.20-5.40); White Blood Count 7.94 K/ul (4.8-10.8)
[2022-08-15 06:36] LABS: BUN Creatinine Ratio 23.7 (10-20); Calcium 9.4 mg/dl (8.5-10.1); Creatinine Clr Calc Pharmacy 13.1 ml/min; Est GFR (African American) 13.3 ml/min; Est GFR (Non-African American) 11.4 ml/min; Potassium 4.5 mmol/L (3.5-5.1)
--- NOTE | 2022-08-15 08:00 | Hospitalist Progress Note ---
Date of Service August 15, 2022 Assessment & Plan (1) Acute hyperkalemia: (2) Acute kidney injury superimposed on CKD: (3) Bilateral edema of lower extremity: (4) CHF (congestive heart failure): (5) T2DM (type 2 diabetes mellitus): (6) Hypertension: (7) COPD (chronic obstructive pulmonary disease): (8) Atrial fibrillation with rapid ventricular response: Plan 08/14: Patient's creatinine continues to improve. Currently off IV fluids, encourage oral hydration. Patient symptoms continue to improve, we will work on getting up and out of bed with physical therapy. Will need inpatient rehab after hospital stay. Patient does not want to go to [facility] and wants to work on going somewhere else. Acute hyperkalemia (Resolved) -Elevated potassium 2/2 acute renal failure, treating with insulin, glucose, and Lokelma x 1 -4.5 on 08/14. -No ST changes on EKG -Following serial labs and on telemetry Acute kidney injury superimposed on CKD Admission BUN 70 and Cr 3.63, CHESTER, etiology includes diarrhea vs. use of 40 mg Lasix daily and Entresto Hold metformin and Entresto - Baseline creatinine 1.31.5. - Nephrology consulted, - 08/09/ NS + 75 mEq NaHCO3 @ 150 ml/hr for 1L twice - 08/11 currently holding fluids and encouraging PO intake - 08/11 BUN 70 and Creatinine 4.06 - 08/12 Creatinine 4.7, suspect due to poor PO intake held fluids 08/10 and 08/11 - 08/13 creatinine 4.0, on 08/14 creatinine has improved to 3.71. - Given 2L of Normosol on 08/12. Given 1L LR at 125 mL/hr on 08/13. - IV fluids have been stopped. Encourage oral hydration. - follow serial labs - Nephrology consulted and states that CHESTER most likely secondary to dehydration in the setting of ARB therapy recommends to continue hydration with IV LR. Bilateral edema of lower extremity No evidence of DVT on today's Doppler - edema and pain improved CHFrEF (congestive heart failure): -Pro BNP is elevated above 30,000, likely secondary to CHESTER vs. CHF -Given 1 dose 20 mg Lasix on 08/09, currently holding -Currently on 2 L nasal cannula -Adrian catheter is in place -Strict I's and O's and following blood pressure -no signs of fluid overload T2DM (type 2 diabetes mellitus) -Most recent A1c is 6.9% -Hold Metformin, Novolog Sliding Scale initiated -Glycemic consult (pharmacy) -BSG AC at bedtime -Continue with diabetic diet Hypertension -Hold Entresto and Losartan. Continue Toprol XL BID -Admit to telemetry. -Daily EKG x2 -Troponin is within normal limits 11.7 PG/mL COPD (chronic obstructive pulmonary disease) -Patient reports a 18-bngh-getf smoking history. She quit in the -Patient is on fluticasone/vilanterol 200/25 mcg (Breo Ellipta) -Chronic respiratory failure with hypoxia requiring supplemental oxygen (2L), goal sats above 90% -Continue the Breo Ellipta while inpatient -No acute respiratory complaints and no hypoxia with supplemental oxygen on admission Atrial fibrillation with rapid ventricular response -Patient currently is in atrial fibrillation with a EKG but no complaints of palpitations or chest pain -Patient is on metoprolol succinate ER 100 mg p.o. twice daily -Patient is also anticoagulated with Eliquis 2.5 mg p.o. twice daily Dispo: PCU/Tele Diet: Heart healthy, low potassium DVT Ppx: Apixaban 2.5 mg p.o. twice daily for DVT prophylaxis Consults: Nephro Admission and Anticipated Discharge Date Admission Date: August 08, 2022 Results & Data Results & Data ([facility]) Vital Signs (Past 12 Hours) Vital Signs Temp Pulse Pulse Resp BP Pulse Ox O2 Del Method 08/15/22 03:13 36.5 C 84 19 92/68 L 100 Nasal Cannula 08/15/22 00:32 Nasal Cannula 08/15/22 00:31 84 08/14/22 23:00 36.5 C 82 19 93/47 L 100 Nasal Cannula O2 Flow Rate 08/15/22 03:13 08/15/22 00:32 2 08/15/22 00:31 08/14/22 23:00
--- NOTE | 2022-08-15 09:07 | Nephrology Progress Note ---
Date of Service August 15, 2022 Assessment & Plan (1) CHESTER (acute kidney injury): Plan: * CHESTER due to dehydration in the setting of ARB therapy * 08/09/22 renal US: 9.5 cm kidneys, no hydro * UO 1075 yesterday * Cr improved from 3.7-->3.5 over last 24 hours * Volume status and electrolyte balance remain acceptable. No acute indication for HD today * IV LR has been stopped. Encourage oral hydration * Monitor PRP, UO * Continue to hold Metformin and Entresto (2) CKD stage G3b/A3, GFR 30-44 and albumin creatinine ratio >300 mg/g: Plan: * Baseline creatinine 1.3-1.5 mg/dL. MACR 308 mcg/mg (3) Ischemic cardiomyopathy: Plan: * 06/30 Echocardiogram: LVEF 20-30%, RVSP 40, mod TR, dilated IVC Admission and Anticipated Discharge Date Admission Date: August 08, 2022 Subjective Ms. Sanchez was seen in her hospital room this morning. She is extremely [place] but had her hearing aids in place today. Ms. Sanchez indicated that she felt well and had no new concerns. Review of Systems Constitutional: no fever Eyes: no problem reported Ear, Nose, Mouth, Throat: no problem reported Respiratory: no dyspnea Cardiovascular: no chest pain Gastrointestinal: no abdominal pain Genitourinary: no dysuria Physical Exam Constitutional: not in distress Eyes: PERRL, conjunctivae normal, anicteric sclerae ENMT: external ear and nose normal, oropharynx normal Neck: trachea midline, no thyromegaly Respiratory: normal respiratory effort, lungs clear to auscultation Cardiovascular: RRR, no murmur, no edema Gastrointestinal (Abdomen): normal bowel sounds, soft, nontender, no hepatosplenomegaly Neurologic: Speech / Cognition: normal speech and normal cognition Results & Data ([facility]) Vital Signs (Past 12 Hours) Vital Signs Temp Pulse Pulse Resp BP Pulse Ox O2 Del Method 08/15/22 08:22 36.6 C 90 18 108/71 100 Room Air 08/15/22 03:13 36.5 C 84 19 92/68 L 100 Nasal Cannula 08/15/22 00:32 Nasal Cannula 08/15/22 00:31 84 08/14/22 23:00 36.5 C 82 19 93/47 L 100 Nasal Cannula O2 Flow Rate 08/15/22 08:22 08/15/22 03:13 08/15/22 00:32 2 08/15/22 00:31 08/14/22 23:00 Laboratory Results Laboratory Tests 08/15/22 08/15/22 05:47 05:47 WBC 7.94 Hgb 9.4 L Hct 32.4 L Plt Count 268 Sodium 135 L Potassium 4.5 Chloride 96 L Carbon Dioxide 31 BUN 83 H Creatinine 3.50 H Glucose 102 H Diagnostic Findings 09/12/22 CXR: Cardiomegaly with pulmonary vascular congestion and possible mild pulmonary edema. Trace pleural effusions. PG Care Time/CCT Total # of Minutes Spent Total Time Spent with Patient: Total time spent is greater than 50% in coordination of care (as documented) at patient's floor/unit and/or counseling patient: Coding Level of Care Code 57799 SUB INP/OBS CARE 3/50MIN Diagnoses CHESTER (acute kidney injury) N17.9 CKD stage G3b/A3, GFR 30-44 and albumin creatinine ratio >300 mg/g N18.32 Ischemic cardiomyopathy I25.5
[2022-08-15] MEDS: INSULIN ASPART PER UNIT SC SCH ×4 (09:13→21:51)
[2022-08-15] MEDS ORDERED: LACTATED RINGER'S 1,000 ML IV SCH (09:15)
--- NOTE | 2022-08-15 09:15 | Hospitalist Progress Note ---
Date of Service August 15, 2022 Assessment & Plan (1) Acute hyperkalemia: Plan: Elevated potassium 2/2 acute renal failure, treating with insulin, glucose, and Lokelma x 1 2/2 improving currently 4.9 2/3 potassium 5.6 2/[address] changes on EKG Following serial labs and on telemetry (2) Acute kidney injury superimposed on CKD: Plan: Admission BUN 70 and Cr 3.63, CHESTER, etiology includes diarrhea vs. use of 40 mg Lasix daily and Entresto Hold metformin and Entresto - Nephrology consulted, - 08/09 12 NS + 75 mEq NaHCO3 @ 150 ml/hr for 1L twice - 08/11 currently holding fluids and encouraging PO intake - 08/11 BUN 70 and Creatinine 4.06 - 08/12 Creatinine 4.7, suspect due to poor PO intake held fluids 08/10 and 08/11 - 1 L Normosol 200 ml/hr, we appreciate nephrology expertise - 08/15 Creatinine 3.5, BUN 83 - follow serial labs (3) Bilateral edema of lower extremity: Plan: No evidence of DVT on today's Doppler - edema and pain improved - Feet dusky, concerning for peripheral vascular disease. Lower extremity duplex evident of diffuse atherosclerotic disease. (4) CHF (congestive heart failure): Plan: Pro BNP is elevated above 30,000, likely secondary to CHESTER vs. CHF Given 1 dose 20 mg Lasix on 08/09, currently holding Adrian catheter is in place Strict I's and O's and following blood pressure no signs of fluid overload (5) T2DM (type 2 diabetes mellitus): Plan: Most recent A1c is 6.9% Hold Metformin, Novolog Sliding Scale initiated Glycemic consult (pharmacy) BSG AC at bedtime Continue with diabetic diet (6) Hypertension: Plan: Hold Entresto and Losartan. Continue Toprol XL BID Admit to telemetry. Daily EKG x2 Troponin is within normal limits 11.7 PG/mL (7) COPD (chronic obstructive pulmonary disease): Plan: Patient reports a 12-esko-gvze smoking history. She quit in the Patient is on fluticasone/vilanterol 200/25 mcg (Breo Ellipta) Chronic respiratory failure with hypoxia requiring supplemental oxygen (2L), goal sats above 90% Continue the Breo Ellipta while inpatient No acute respiratory complaints and no hypoxia with supplemental oxygen on admission Elevated right atrial pressure on Echo (8) Atrial fibrillation with rapid ventricular response: Plan: Patient currently is in atrial fibrillation with a EKG but no complaints of palpitations or chest pain Patient is on metoprolol succinate ER 100 mg p.o. twice daily Patient is also anticoagulated with Eliquis 2.5 mg p.o. twice daily (9) Microcytic anemia: Plan: - Hgb 9, MCV 79.2 - Iron studies pending Plan Dispo: PCU/Tele Diet: Heart healthy, low potassium DVT Ppx: Apixaban 2.5 mg p.o. twice daily for DVT prophylaxis Consults: Nephro Admission and Anticipated Discharge Date Admission Date: August 08, 2022 Supervising Physician Co-Signing Physician Notes Medical Student Supervision Note: I was personally present during medical student patient encounter and independently interviewed and examined the patient and verified the choi history and physical, reviewed labs and image studies, discussed the case with Pilar Herrera and agree with the findings and care plan. 81 y/o F with h/o chronic systolic heart failure here with acute renal failure and hyperkalemia secondary to dehydration and ATN due to diarrhea. Creatinine is improving with IV hydration. Holding nephrotoxics. No sign of fluid overload. o/e - Alert, very hard of hearing. Heart - regular; Lungs - CTA; Abd-soft Legs- bilateral feet cold. CHESTER/Hyperkalemia - continue to hold entresto, lasix. follow bmp in am chronic systolic chf- to resume meds once kidney function stable. COPD - continue inhalers. Pul HTN - noted on echo. likely from LHD and copd. Oxygenating well. follow. Subjective Coco Sanchez is an 81 year old female on hospital day 6 with a pertinent past medical history of HFrEF, paroxysmal atrial fibrillation, SSS s/p pacemaker placement, COPD, pulmonary hypertension, DMII, hypertension, hyperlipidemia, peripheral arterial disease, morbid obesity, and CKD. She presented intially with concerns of leg swelling, pain and weeping. She also has had nausea and ricardo rrhea with generalized weakness. Today she feels well. She is working on increased PO intake and staying more alert during the day. She has no shortness of breath, chest pain, nausea or vomiting or diarrhea. Her legs are slightly uncomfortable (burning and pain) but worked well with PT today. Physical Exam Physical Exam: General: WN/WD, NAD HEENT: No scleral icterus, PERRLA, neck supple. Atraumatic. Cardiovascular: Irregular, Irregular, No murmurs/rubs/gallops Pulmonary: Clear to auscultation bilaterally, normal work of breathing, no rales, rhonchi Abdomen: Soft, nontender, nondistended, positive bowel sounds. Musculoskeletal: Atraumatic, trace edema, slight tenderness to palpation left leg, erythematous papules/erosions noted on posterior left calf, b/t feet dusky Results & Data Results & Data ([facility]) Vital Signs (Past 12 Hours) Vital Signs Temp Pulse Pulse Resp BP Pulse Ox O2 Del Method 08/15/22 08:22 36.6 C 90 18 108/71 100 Room Air 08/15/22 03:13 36.5 C 84 19 92/68 L 100 Nasal Cannula 08/15/22 00:32 Nasal Cannula 08/15/22 00:31 84 08/14/22 23:00 36.5 C 82 19 93/47 L 100 Nasal Cannula O2 Flow Rate 08/15/22 08:22 08/15/22 03:13 08/15/22 00:32 2 08/15/22 00:31 08/14/22 23:00
[2022-08-15] MEDS: PANTOprazole 40 MG TAB PO SCH (09:41)
[2022-08-15] MEDS: FLUoxetine HCL 20 MG CAP PO SCH (09:41)
[2022-08-15] MEDS: FLUTICASONE/VILANTEROL 200/25MCG 14 PUFFS/INHALER INH SCH (09:41)
[2022-08-15] MEDS: ATORVASTATIN 40 MG TAB PO SCH (09:41)
[2022-08-15] MEDS: METOPROLOL SUCC 50MG EXT REL TAB PO SCH ×2 (09:41→21:06)
[2022-08-15] MEDS: HEPARIN SOD 5,000 UNIT/0.5 ML VIAL SQ SCH ×2 (09:41→21:06)
--- NOTE | 2022-08-15 10:38 | XRay Report ---
XR chest 1V portable HISTORY: 81 years-old Female rales acute shortness of breath COMPARISON: 08/10/2022 TECHNIQUE: AP view of the chest FINDINGS: Cardiac silhouette is enlarged. Left subclavian pacer. Atherosclerosis of the aorta. No pneumothorax. Trace pleural effusions. Pulmonary vascular congestion with mild interstitial coarsening. Degenerati ve changes of the shoulders and spine. IMPRESSION: 1. Cardiomegaly with pulmonary vascular congestion and possible mild pulmonary edema. 2. Trace pleural effusions. ACT 112: Negative or not required by law. The above report was generated using voice recognition software. It may contain grammatical, syntax o r spelling errors. Electronically signed by: James Nickerson M.D. 08/15/2022 10:36 AM
[2022-08-15] MEDS: ACETAMINOPHEN 325 MG TAB PO PRN (21:05)
[2022-08-15] MEDS: LORazepam 0.5 MG TAB PO PRN (21:06)
[2022-08-15] MEDS: MONTELUKAST SODIUM 10 MG TABLET PO SCH (21:06)
[2022-08-16 06:28] LABS: Hematocrit (blood only) 32.2 % (37.0-47.0); Hemoglobin 9.3 g/dl (12.0-16.0); Mean Corpuscular Hemoglobin 22.9 pg (25.0-34.0); Mean Corpuscular Hgb Conc 28.9 g/dL (32.0-36.0); Mean Corpuscular Volume 79.3 fL (80.0-100.0); Mean Platelet Volume 11.8 fL (9.4-12.4); Nucleated RBC # (auto) 0.06 K/uL (0-0.12); Nucleated RBC % (auto) 0.7 %; Platelet Count 251 K/uL (130-400); RDW Coefficient of Variation 19.8 % (11.5-14.5); RDW Standard Deviation 56.3 fL (36.4-46.3); Red Blood Count 4.06 M/uL (4.20-5.40); White Blood Count 8.92 K/ul (4.8-10.8)
[2022-08-16 06:42] LABS: BUN Creatinine Ratio 24.9 (10-20); Calcium 9.6 mg/dl (8.5-10.1); Creatinine Clr Calc Pharmacy 13.1 ml/min; Est GFR (African American) 13.3 ml/min; Est GFR (Non-African American) 11.5 ml/min; Potassium 4.7 mmol/L (3.5-5.1)
[2022-08-16] MEDS ORDERED: APIXABAN 2.5 MG TAB PO SCH (09:00)
[2022-08-16] MEDS ORDERED: IRON SUCROSE 200 MG in 0.9 % SODIUM CHLORIDE 100 ML IV SCH (09:00)
--- NOTE | 2022-08-16 09:02 | Nephrology Progress Note ---
Date of Service August 16, 2022 Assessment & Plan (1) CHESTER (acute kidney injury): Plan: * CHESTER due to dehydration in the setting of ARB therapy * 08/09/22 renal US: 9.5 cm kidneys, no hydronephrosis * Cr stable at 3.49 last 24 hours * Volume status and electrolyte balance remain acceptable. No acute indication for HD today * CXR w/ mild edema. Hold IVF. Encourage oral hydration * Monitor PRP, UO * Continue to hold Metformin and Entresto (2) CKD stage G3b/A3, GFR 30-44 and albumin creatinine ratio >300 mg/g: Plan: * Baseline creatinine 1.3-1.5 mg/dL. MACR 308 mcg/mg (3) Ischemic cardiomyopathy: Plan: * 06/30 Echocardiogram: LVEF 20-30%, RVSP 40, mod TR, dilated IVC Admission and Anticipated Discharge Date Admission Date: August 08, 2022 Subjective Ms. Sanchez was seen in her hospital room this morning. She is extremely [place]. We conversed through writing. Ms. Sanchez indicated that she felt well and had no new concerns. Review of Systems Constitutional: no fever Eyes: no problem reported Ear, Nose, Mouth, Throat: no problem reported Respiratory: no dyspnea Cardiovascular: no chest pain Gastrointestinal: no abdominal pain Genitourinary: no dysuria Physical Exam Constitutional: not in distress Eyes: PERRL, conjunctivae normal, anicteric sclerae ENMT: external ear and nose normal, oropharynx normal Neck: trachea midline, no thyromegaly Respiratory: normal respiratory effort, lungs clear to auscultation Cardiovascular: RRR, no murmur, no edema Gastrointestinal (Abdomen): normal bowel sounds, soft, nontender, no hepatosplenomegaly Neurologic: Speech / Cognition: normal speech and normal cognition Results & Data ([facility]) Vital Signs (Past 12 Hours) Vital Signs Temp Pulse Pulse Resp BP Pulse Ox O2 Del Method 08/16/22 07:39 36.5 C 87 18 95/51 L 94 Nasal Cannula 08/16/22 04:03 36.7 C 73 19 109/81 91 Nasal Cannula 08/15/22 21:52 36.6 C 62 19 101/67 98 Nasal Cannula O2 Flow Rate 08/16/22 07:39 2 08/16/22 04:03 2 08/15/22 21:52 2 Laboratory Results Laboratory Tests 08/16/22 08/16/22 05:53 05:53 WBC 8.92 Hgb 9.3 L Hct 32.2 L Plt Count 251 Sodium 137 Potassium 4.7 Chloride 97 L Carbon Dioxide 30 BUN 87 H Creatinine 3.49 H Glucose 105 H Transferrin % Sat 5 L Ferritin 29.0 Diagnostic Findings 08/15/22 CXR: Cardiac silhouette is enlarged. Left subclavian pacer. Atherosclerosis of the aorta. No pneumothorax. Trace pleural effusions. Pulmonary vascular congestion with mild interstitial coarsening. Degenerative changes of the shoulders and spine. PG Care Time/CCT Total # of Minutes Spent Total Time Spent with Patient: Total time spent is greater than 50% in coordination of care (as documented) at patient's floor/unit and/or counseling patient: Coding Level of Care Code 03992 SUB INP/OBS CARE 3/50MIN Diagnoses CHESTER (acute kidney injury) N17.9 CKD stage G3b/A3, GFR 30-44 and albumin creatinine ratio >300 mg/g N18.32 Ischemic cardiomyopathy I25.5
--- NOTE | 2022-08-16 09:21 | Hospitalist Progress Note ---
Date of Service August 16, 2022 Assessment & Plan (1) Acute hyperkalemia: Plan: Elevated potassium 2/2 acute renal failure, treating with insulin, glucose, and Lokelma x 1 2/2 improving currently 4.9 2/3 potassium 5.6 2/6 potassium 3.5 2/ potassium 4.[address] changes on EKG Following serial labs and on telemetry (2) Acute kidney injury superimposed on CKD: Plan: Admission BUN 70 and Cr 3.63, CHESTER, etiology includes diarrhea vs. use of 40 mg Lasix daily and Entresto Hold metformin and Entresto - Nephrology consulted, - 08/09 1/2 NS + 75 mEq NaHCO3 @ 150 ml/hr for 1L twice - 08/11 currently holding fluids and encouraging PO intake - 08/11 BUN 70 and Creatinine 4.06 - 08/12 Creatinine 4.7, suspect due to poor PO intake held fluids 08/10 and 08/11 - 1 L Normosol 200 ml/hr, we appreciate nephrology expertise - 08/15 Creatinine 3.5, BUN 83 - 08/16 BUN 87 Cr 3.49 - follow serial labs (3) Bilateral edema of lower extremity: Plan: No evidence of DVT on today's Doppler - edema and pain improved - Feet dusky, concerning for peripheral vascular disease. Lower extremity duplex evident of diffuse atherosclerotic disease. (4) CHF (congestive heart failure): Plan: Pro BNP is elevated above 30,000, likely secondary to CHESTER vs. CHF Given 1 dose 20 mg Lasix on 08/09, currently holding Adrian catheter is in place Strict I's and O's and following blood pressure no signs of fluid overload (5) T2DM (type 2 diabetes mellitus): Plan: Most recent A1c is 6.9% Hold Metformin, Novolog Sliding Scale initiated Glycemic consult (pharmacy) BSG AC at bedtime Continue with diabetic diet (6) Hypertension: Plan: Hold Entresto and Losartan. Continue Toprol XL BID Admit to telemetry. Daily EKG x2 Troponin is within normal limits 11.7 PG/mL (7) COPD (chronic obstructive pulmonary disease): Plan: Patient reports a 18-dbut-ykyq smoking history. She quit in the Patient is on fluticasone/vilanterol 200/25 mcg (Breo Ellipta) Chronic respiratory failure with hypoxia requiring supplemental oxygen (2L), goal sats above 90% Continue the Breo Ellipta while inpatient No acute respiratory complaints and no hypoxia with supplemental oxygen on admission Elevated right atrial pressure on Echo (8) Atrial fibrillation with rapid ventricular response: Plan: Patient currently is in atrial fibrillation with a EKG but no complaints of palpitations or chest pain Patient is on metoprolol succinate ER 100 mg p.o. twice daily Patient is also anticoagulated with Eliquis 2.5 mg p.o. twice daily (9) Microcytic anemia: Plan: - Hgb 9, MCV 79.2 - Iron studies: Iron 20, TIBC 413, Unsat IBC 393 H, Transferrin 5 L - IV Iron 200 mg administered Plan Dispo: PCU/Tele Diet: Heart healthy, low potassium DVT Ppx: Apixaban 2.5 mg p.o. twice daily for DVT prophylaxis Consults: Nephro Admission and Anticipated Discharge Date Admission Date: August 08, 2022 Cody Sanchez is an 81 year old female on hospital day 7 with a pertinent past medical history of HFrEF, paroxysmal atrial fibrillation, SSS s/p pacemaker placement, COPD, pulmonary hypertension, DMII, hypertension, hyperlipidemia, peripheral arterial disease, morbid obesity, and CKD. She presented initially with concerns of leg swelling, pain and weeping. She also has had nausea and diarrhea with generalized weakness. Today she feels well. She is working on increased PO intake and staying more alert during the day. She has no shortness of breath, chest pain, nausea or vomiting or diarrhea. Her legs are slightly uncomfortable (burning and pain) and feet are a numb but worked well with PT t renata. Review of Systems Review of Systems: See HPI Physical Exam Physical Exam: General: WN/WD, NAD HEENT: No scleral icterus, PERRLA, neck supple. Atraumatic. Cardiovascular: Irregular, Irregular, No murmurs/rubs/gallops Pulmonary: Clear to auscultation bilaterally, normal work of breathing, no rales, rhonchi Abdomen: Soft, nontender, nondistended, positive bowel sounds. Musculoskeletal: Atraumatic, trace edema, slight tenderness to palpation left leg, erythematous papules/erosions noted on posterior left calf, b/t feet dusky Results & Data Results & Data ([facility]) Vital Signs (Past 12 Hours) Vital Signs Temp Pulse Pulse Resp BP Pulse Ox O2 Del Method 08/16/22 07:39 36.5 C 87 18 95/51 L 94 Nasal Cannula 08/16/22 04:03 36.7 C 73 19 109/81 91 Nasal Cannula 08/15/22 21:52 36.6 C 62 19 101/67 98 Nasal Cannula O2 Flow Rate 08/16/22 07:39 2 08/16/22 04:03 2 08/15/22 21:52 2
[2022-08-16] MEDS: METOPROLOL SUCC 50MG EXT REL TAB PO SCH (09:29)
[2022-08-16] MEDS: ATORVASTATIN 40 MG TAB PO SCH (09:33)
[2022-08-16] MEDS: FLUoxetine HCL 20 MG CAP PO SCH (09:33)
[2022-08-16] MEDS: PANTOprazole 40 MG TAB PO SCH (09:33)
[2022-08-16] MEDS: FLUTICASONE/VILANTEROL 200/25MCG 14 PUFFS/INHALER INH SCH (09:34)
[2022-08-16] MEDS: INSULIN ASPART PER UNIT SC SCH ×2 (10:13→12:30)
--- NOTE | 2022-08-16 11:05 | Consultation ---
Date of Consultation August 16, 2022 Assessment & Plan (1) Peripheral arterial disease: Pt with R SFA occlusion and immediate reconstitution by US. Pt asymptomatic from this and does not require intervention. Her sx of numbness/tingling/burning/sensitivity are bilateral and more likely related to neuropathy. Her cool toes/fingers are likely a function of her poor EF. Also, her GFR of 11 on most recent labs precludes her from candidacy for angiography at this time. Advised pt we will be happy to reevaluate her in 6 months in office to see if she is more functional and is having any change in sx. She is in agreement to this plan. Please call if needed. History of Present Illness Reason for Consultation: PAD Attending Physician: Lexie Vazquez MD History of Present Illness 81 yo f with hx of DMII, HTN, CHF, ischemic cardiomyopathy, A fib, CKD, COPD, pulmonary htn, hyperlipidemia, admitted with acute on chronic renal failure and hyperkalemia, seen in consultation today for PAD noted on arterial US. 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 Pt has been ill with multiple hospitalizations and has not been ambulating much. Denies calf pain when walking. Does complain of BL foot numbness tingling, and burning most of the day. States her feet are extremely sensitive and she does not even like the sheets on them. Admits edema of BLE. Denies CHACON, fever, chest pain, SOB at rest, abd pain, N/V, other complaints. Arterial US demonstrates R SFA occlusion with reconsistution. Allergies Allergy/AdvReac Type Severity Reaction Status Date / Time Penicillins AdvReac Intermediate GI SYMPTOMS Verified 07/05/22 21:01 Home Medications Medication Instructions Recorded Confirmed Type cyanocobalamin (vitamin B-12) 500 1,000 mcg PO QAM #30 tabs 02/13/22 08/08/22 Rx mcg tablet atorvastatin 40 mg tablet 40 mg PO DAILY #90 tabs 03/19/22 08/08/22 Rx fluoxetine 20 mg capsule 20 mg PO DAILY #90 caps 03/19/22 08/08/22 Rx fluticasone furoate 200 1 inh inhalation DAILY #90 ea 03/19/22 08/08/22 Rx mcg-vilanterol 25 mcg/dose inhalation powder furosemide 40 mg tablet (Lasix) 40 mg PO DAILY #90 tabs 03/19/22 08/08/22 Rx metformin 500 mg tablet 500 mg PO BID #180 tabs 03/19/22 08/08/22 Rx omeprazole 20 mg capsule,delayed 20 mg PO DAILY #90 caps 03/19/22 08/08/22 Rx release metoprolol succinate 100 mg 100 mg PO Q12H #180 tabs 03/30/22 08/08/22 Rx tablet,extended release 24 hr montelukast 10 mg tablet 10 mg PO DAILY #90 tabs 04/26/22 08/08/22 Rx apixaban 5 mg tablet (Eliquis) 2.5 mg PO BID 08/08/22 08/08/22 History docusate sodium 100 mg capsule 100 mg PO DAILY 08/08/22 08/08/22 History (Colace) losartan 25 mg tablet 25 mg PO DAILY 08/08/22 08/08/22 History sacubitril 24 mg-valsartan 26 mg 1 tab PO BID 08/08/22 08/08/22 History tablet (Entresto) zafirlukast 10 mg tablet 10 mg PO BID 08/08/22 08/08/22 History Patient History Medical History (Updated 08/16/22 @ 11:06 by Aracely Solo PA-C) Acute respiratory failure with hypoxia Anxiety Atrial fibrillation CKD stage G3b/A3, GFR 30-44 and albumin creatinine ratio >300 mg/g COPD (chronic obstructive pulmonary disease) Diabetes mellitus Hyperlipidemia Hypertension Peripheral arterial disease T2DM (type 2 diabetes mellitus) Surgical History No pertinent past surgical history S/P cataract extraction Status post cardiac pacemaker procedure Family History Other Colorectal cancer Hypertension Kidney disease Lung disease Prostate cancer Denies family history of Breast cancer Social History Smoking Status: Never smoker Cigarettes Per Day: smoked for 60 years; Second Hand Exposure: Yes; Hx Alcohol Use: No Hx Substance Use: No Preferred Language: Hungarian Communication Ability: Impaired Transfusion Nurse Required: No Beliefs That Will Affect Care: None marital status: / Current Living Situation: Long Term current occupational status: retired Feels Safe at Home: Yes Safety Concerns: Feels Safe At This Time caffeine: No Dental Care, Regularly: Yes Seatbelt Use: always Sunscreen Use: No Assistive Devices: Walker Review of Systems Review of Systems: All systems reviewed & are unremarkable except as noted in HPI & below Physical Exam Constitutional: WD/WN, vitals as above + obese, cooperative and comfortable; not in distress ENMT: Ears: + hearing impairment (severe, interview very difficult, uses paper/pen) Neck: trachea midline Respiratory: normal respiratory effort, lungs clear to auscultation Auscultation: + diminished lung sounds Cardiovascular: Rate/Rhythm: regular rate and regular rhythm Vessels: femoral pulses present, posterior tibial pulses present (with doppler), dorsalis pedis pulses present (with doppler) and radial pulses present; + abnormal peripheral pulses Extremities: normal capillary refill Gastrointestinal (Abdomen): Inspection/Auscultation: abdomen normal to inspection and normal bowel sounds Percussion/Palpation: abdomen soft; abdomen nontender Musculoskeletal: no cyanosis or clubbing, extremities motor strength 5/5 (toes/fingers cool to touch, but appropriate refill) Skin: + rash (BLE calf ); no ulcers Neurologic: moves all extremities and awake; no focal motor deficits and not confused Psychiatric: A+Ox3, euthymic affect Results & Data ([facility]) Vital Signs (Past 12 Hours) Vital Signs Temp Pulse Pulse Resp BP Pulse Ox O2 Del Method 08/16/22 07:39 36.5 C 87 18 95/51 L 94 Nasal Cannula 08/16/22 04:03 36.7 C 73 19 109/81 91 Nasal Cannula O2 Flow Rate 08/16/22 07:39 2 08/16/22 04:03 2
--- NOTE | 2022-08-16 13:04 | Discharge Summary ---
Date of Service August 16, 2022 Admission HPI Per Admitting Provider Attending: Dr. Nicholas This is an 81-year-old female with complicated past medical history and multiple admissions. She presents with lower extremity edema and is negative for DVT. Patient does have peripheral arterial disease and on imaging this morning does have reconstitution and no evidence of lack of flow. She has a elevated proBNP of 3213, lactic acid is greater than 4, she is in atrial fibrillation on EKG, creatinine has tripled and is currently 3.43, potassium was elevated at 6.3. QTC is 490 ms. No peak T waves on EKG. Hemodynamically, patient appears to be stable at this time. Patient is chronically anticoagulated with apixaban twice daily for her atrial fibrillation. Pacemaker is present on CXR. She does have history of presentations similar to this in the past requiring pressors. Patient is hard of hearing but responds appropriately. Patient reports that for the last 4 days she has had increased pain in her bilateral lower extremities. She reports that they burn and that she has pinpoint pain with light palpation. Unable to tolerate sheet or blanket on ankles or feet. No open wounds or injury per her report. Patient denies any fever, chills, sweats, rigors. She does state that her feet are always cold. She has had some nausea lately but no vomiting. She also reports watery stool for the last 3 to 4 days. Discharge Data Consultations 08/08/22 10:31 ED Decision to Admit Stat 08/09/22 06:54 Consult Nephrology Routine 08/16/22 09:42 Consult Vascular Surgery Routine Hospital Course (1) Acute hyperkalemia: Elevated potassium 2/2 acute renal failure, treating with insulin, glucose, and Lokelma x 1 2/2 improving currently 4.9 2/3 potassium 5.6 2/6 potassium 3.5 2/[address] changes on EKG Following serial labs and on telemetry (2) Acute kidney injury superimposed on CKD: Admission BUN 70 and Cr 3.63, CHESTER, etiology includes diarrhea vs. use of 40 mg Lasix daily and Entresto Hold metformin and Entresto - Nephrology consulted, - 08/09 1/2 NS + 75 mEq NaHCO3 @ 150 ml/hr for 1L twice - 2/2 currently holding fluids and encouraging PO intake - 2/2 BUN 70 and Creatinine 4.06 - 2/3 Creatinine 4.7, suspect due to poor PO intake held fluids 08/10 and 22 - 1 L Normosol 200 ml/hr, we appreciate nephrology expertise - 08/15 Creatinine 3.5, BUN 83 - 08/16 BUN 87 Cr 3.49 - follow serial labs (3) Bilateral edema of lower extremity: No evidence of DVT on today's Doppler - edema and pain improved - Feet dusky, concerning for peripheral vascular disease. Lower extremity duplex evident of diffuse atherosclerotic disease. (4) CHF (congestive heart failure): Pro BNP is elevated above 30,000, likely secondary to CHESTER vs. CHF Given 1 dose 20 mg Lasix on 08/09, currently holding Adrian catheter is in place Strict I's and O's and following blood pressure Increased from 84 to 95 kg throughout her hospitalization, can restart Lasix at home (5) T2DM (type 2 diabetes mellitus): Most recent A1c is 6.9% Discontinue Metformin, Novolog Sliding Scale initiated Glycemic consult (pharmacy) BSG AC at bedtime Continue with diabetic diet (6) Hypertension: Hold Entresto and Losartan. Continue Toprol XL BID Admit to telemetry. Daily EKG x2 Troponin is within normal limits 11.7 PG/mL (7) COPD (chronic obstructive pulmonary disease): Patient reports a 95-iytb-goyj smoking history. She quit in the Patient is on fluticasone/vilanterol 200/25 mcg (Breo Ellipta) Chronic respiratory failure with hypoxia requiring supplemental oxygen (2L), goal sats above 90% Continue the Breo Ellipta while inpatient No acute respiratory complaints and no hypoxia with supplemental oxygen on admission Elevated right atrial pressure on Echo (8) Atrial fibrillation with rapid ventricular response: Patient currently is in atrial fibrillation with a EKG but no complaints of palpitations or chest pain Patient is on metoprolol succinate ER 100 mg p.o. twice daily Patient is also anticoagulated with Eliquis 2.5 mg p.o. twice daily (9) Microcytic anemia: - Hgb 9, MCV 79.2 - Iron studies: Iron 20, TIBC 413, Unsat IBC 393 H, Transferrin 5 L - IV Iron 200 mg administered Plan Dispo: PCU/Tele Diet: Heart healthy, low potassium DVT Ppx: Apixaban 2.5 mg p.o. twice daily for DVT prophylaxis Consults: Nephro
--- NOTE | 2022-08-16 14:11 | Discharge Summary ---
Date of Service August 16, 2022 Admission HPI Per Admitting Provider Attending: Dr. Nicholas This is an 81-year-old female with complicated past medical history and multiple admissions. She presents with lower extremity edema and is negative for DVT. Patient does have peripheral arterial disease and on imaging this morning does have reconstitution and no evidence of lack of flow. She has a elevated proBNP of 3213, lactic acid is greater than 4, she is in atrial fibrillation on EKG, creatinine has tripled and is currently 3.43, potassium was elevated at 6.3. QTC is 490 ms. No peak T waves on EKG. Hemodynamically, patient appears to be stable at this time. Patient is chronically anticoagulated with apixaban twice daily for her atrial fibrillation. Pacemaker is present on CXR. She does have history of presentations similar to this in the past requiring pressors. Patient is hard of hearing but responds appropriately. Patient reports that for the last 4 days she has had increased pain in her bilateral lower extremities. She reports that they burn and that she has pinpoint pain with light palpation. Unable to tolerate sheet or blanket on ankles or feet. No open wounds or injury per her report. Patient denies any fever, chills, sweats, rigors. She does state that her feet are always cold. She has had some nausea lately but no vomiting. She also reports watery stool for the last 3 to 4 days. Admission Exam Per Admitting Provider GENERAL : No acute distress EYES: No icterus, gaze conjugate NOSE: No evidence of epistaxis MOUTH: No lesions or candidiasis NECK: Supple. No stridor LUNGS: Clear to auscultation bilaterally. No rales or rhonchi. No bronchospasm appreciated. BACK: No CVA tenderness HEART: Irregular, irregular. EKG with atrial fibrillation. Rate is currently 102 bpm ABDOMEN: Soft, NT, ND, BS Present EXTREMITIES: No LE edema, pedal pulses intact and equal. Bilateral posterior tibialis pulses are intact. Difficulty finding dorsalis pulses. Good radial pulses bilaterally. Some minimal oozing. There is a bandage over the left anterior og that appears to be dry and intact. Sensation is intact to all 5 toes on each foot. NEURO: A&OX3. Extremely hard of hearing. Right ear seems to be better. Comprehension appropriate when she can hear you. Moves all extremities spontaneously and to command. No slurred speech. No facial droop. Tongue is midline. Pupils equal round and reactive light. No acute focal deficits appreciated. Principal Diagnosis acute kidney injury in the setting of CKD, hyperkalemia Discharge Exam Constitutional NAD. Vitals WNL. Baseline 2 L NC. Neck Trachea midline. Respiratory CTA bilaterally. No rhonchi, wheezing, or crackles. Non labored breathing. Cardiovascular Irregularly irregular rhythm. Regular rate. No murmur noted. 2+ bilateral pitting edema in feet, 1+ edema in bilateral lower calves. Bilateral feet cold w/ dusky toes. Peripheral pulses not felt upon palpation, pulses identified w/ doppler scan. Psychiatric Alert. Mood and affect congruent. Discharge Data Allergies Allergy/AdvReac Type Severity Reaction Status Date / Time Penicillins AdvReac Intermediate GI SYMPTOMS Verified 07/05/22 21:01 Consultations 08/08/22 10:31 ED Decision to Admit Stat 08/09/22 06:54 Consult Nephrology Routine 08/16/22 09:42 Consult Vascular Surgery Routine Ordered Studies Chest X-Ray 08/08/22 06:39 XR chest 1V portable HISTORY: 81 years-old Female CHF acute shortness of breath with congestive heart failure COMPARISON: Chest radiograph 07/05/2022 TECHNIQUE: AP view of the chest FINDINGS: Cardiac silhouette is enlarged. Left subclavian pacer. Atherosclerosis of the aorta. No pneumothorax. Trace pleural effusions with pulmonary vascular congestion. Degenerative changes of the shoulders and spine. IMPRESSION: 1. Cardiomegaly with pulmonary vascular congestion. 2. Trace pleural effusions. ACT 112: Negative or not required by law. The above report was generated using voice recognition software. It may contain grammatical, syntax or spelling errors. Electronically signed by: James Nickerson M.D. 08/08/2022 7:48 AM Duplex Scan Lower Extremity Artery 08/08/22 07:07 US arterial duplex LE BI CLINICAL HISTORY: leg swelling, pain, decreased pulses COMPARISON STUDY: None. FINDINGS: Scattered calcified plaque within the bilateral lower extremity arterial systems. The right common femoral artery and right superficial femoral artery demonstrate normal velocity monophasic waveforms. Focal occlusion within the mid right superficial femoral artery. There is immediate reconstitution of flow within the distal superficial femoral artery which demonstrates low velocity monophasic waveforms. There are also low velocity monophasic waveforms seen within the right popliteal and right calf arteries without high-grade stenosis or occlusion. Monophasic normal velocity waveforms seen throughout the left lower extremity arterial system. IMPRESSION: 1. Focal occlusion within the mid right superficial femoral artery with immediate reconstitution of flow. 2. No high-grade stenosis or occlusion within the left lower extremity arterial system. 3. Monophasic waveforms seen throughout the bilateral lower extremity arterial systems suggestive of diffuse atherosclerotic disease. ACT 112: Negative or not required by law. Electronically signed by: Artemio Harrison M.D. 08/08/2022 10:13 AM Venous Doppler Study 08/08/22 07:07 BILATERAL LOWER EXTREMITY VENOUS DOPPLER HISTORY: Acute pain and swelling of the lower legs leg swelling and pain COMPARISON STUDY: None. FINDINGS: There is normal compressibility, flow, and augmentation within the bilateral lower extremity deep venous systems. IMPRESSION: No DVT within the right or left lower extremity. ACT 112: Negative or not required by law. Electronically signed by: James Nickerson M.D. 08/08/2022 10:01 AM Chest X-Ray 08/09/22 07:00 XR chest 1V portable CLINICAL HISTORY: CHF, CHESTER COMPARISON STUDY: Chest radiograph August 08, 2022. FINDINGS: Left subclavian pacemaker is in place. Moderate cardiomegaly is unchanged. There is no pneumothorax. Trace right pleural effusion. Pulmonary vascular congestion is unchanged. IMPRESSION: No change in appearance of the chest. Cardiomegaly with pulmonary vascular congestion and trace right pleural effusion. ACT 112: Negative or not required by law. Electronically signed by: Stevan Ch M.D. 08/09/2022 7:38 AM Renal Ultrasound 08/09/22 07:02 RENAL ULTRASOUND HISTORY: Acute kidney injury worsening CHESTER, oliguria COMPARISON: Renal ultrasound 03/05/2022 FINDINGS: Right kidney: 9.8 No hydronephrosis. Normal corticomedullary differentiation and cortical thickness. 1.3 x 0.7 x 1.1 cm cyst hypoechoic focus of the superior pole right kidney may represent a cyst. Left kidney: 9.4 No hydronephrosis. Normal corticomedullary differentiation and cortical thickness. Bladder: Decompressed urinary bladder with White catheter. Nonspecific trace free fluid within the abdominal right upper quadrant. IMPRESSION: 1. No renal calculi or hydronephrosis identified. 2. Decompressed urinary bladder with White catheter. 3. Nonspecific trace free fluid within the abdominal right upper quadrant. ACT 112: Negative or not required by law. Electronically signed by: James Nickerson M.D. 08/09/2022 9:21 AM Chest X-Ray 08/10/22 07:00 XR chest 1V portable HISTORY: 81 years-old Female CHF, CHESTER acute kidney injury with heart failure COMPARISON: Chest radiograph 08/09/2022 TECHNIQUE: AP view of the chest FINDINGS: Cardiac silhouette is enlarged. On a vascular congestion. Atherosclerosis of the aorta. Left subclavian pacer. No pneumothorax, large pleural effusion or overt pulmonary edema. Bones of the chest appear grossly intact. IMPRESSION: Cardiomegaly with pulmonary vascular congestion. ACT 112: Negative or not required by law. The above report was generated using voice recognition software. It may contain grammatical, syntax or spelling errors. Electronically signed by: James Nickerson M.D. 08/10/2022 9:55 AM Chest X-Ray 08/15/22 10:13 XR chest 1V portable HISTORY: 81 years-old Female rales acute shortness of breath COMPARISON: 08/10/2022 TECHNIQUE: AP view of the chest FINDINGS: Cardiac silhouette is enlarged. Left subclavian pacer. Atherosclerosis of the aorta. No pneumothorax. Trace pleural effusions. Pulmonary vascular congestion with mild interstitial coarsening. Degenerative changes of the shoulders and spine. IMPRESSION: 1. Cardiomegaly with pulmonary vascular congestion and possible mild pulmonary edema. 2. Trace pleural effusions. ACT 112: Negative or not required by law. The above report was generated using voice recognition software. It may contain grammatical, syntax or spelling errors. Electronically signed by: James Nickerson M.D. 08/15/2022 10:36 AM Hospital Course (1) CHESTER (acute kidney injury): (2) Acute hyperkalemia: (3) Bilateral edema of lower extremity: (4) Ischemic cardiomyopathy: (5) Microcytic anemia: (6) CHF (congestive heart failure): (7) T2DM (type 2 diabetes mellitus): Plan Pt is a 81 yo female with PMH of anxiety, HF w/ reduced ejection fraction, afib, CKD, COPD, DM, HLD, HTN, and PAD presenting to the hospital d/t her "legs seeping." Acute kidney injury superimposed on CKD - Admission BUN 70 and Cr 3.63; etiology includes diarrhea in setting of use of 40 mg Lasix daily and entresto - Held metformin and Entresto while admitted - pt received fluids while admitted while also encouraging PO intake; - Cr upon discharge 3.49, Cr peaked at 4.74 this visit - pt high risk for development of cardiorenal syndrome considering her worsening kidney function and poor EF: recommend repeat BMP q2 days, prioritization of reintroduction of lasix 40 mg before reinitiation of losartan or entresto Chronic systolic CHF (congestive heart failure) - BNP was elevated at 3213 likely secondary to CHESTER - Given 1 dose 20 mg Lasix on 08/09, lasix held otherwise - most recent echo showed EF 20-25% w/ elevated RVSP - Patient was aggressively diuresed during recent admission and was at her dry weight on discharge. - No sign of fluid overload while at the hospital this admission - recommend PRN use of lasix until fluid status more stable - recommend continued discussion of goals of care moving forward considering pt's poor prognosis in setting of her renal failure Acute hyperkalemia - secondary to acute renal failure, treated with insulin, glucose, and Lokelma x 1 - No ST changes on EKG - K upon discharge 4.7 - continue to monitor Bilateral edema of lower extremity - No evidence of DVT on doppler - arterial scan showed occlusion w/ reconstitution of the right femoral artery and diffuse atherosclerotic disease evidenced by monophasic waveforms - Bilateral feet dusky and cold, concerning for peripheral vascular disease - peripheral neuropathy may be considering to pt's perception of lack of sensation - outpatient f/u w/ vascular surgery in 6 mths T2DM (type 2 diabetes mellitus) - Stopped Metformin, Novolog Sliding Scale initiated while admitted - BSG AC at bedtime - continue with diabetic diet - discontinue metformin in light of CHESTER; latest A1c 6.9% w/ goal of <8.0% - may consider switch to different DM medication like an SGLT2 inhibitor Hypertension - continue holding Entresto and Losartan - continue Toprol XL BID COPD (chronic obstructive pulmonary disease) Chronic respiratory failure - Patient reports a 74-[id number]-vdtc smoking history. She quit in the - Patient is on breo ellipta - pt stable on baseline 2 L NC - No acute respiratory complaints and no hypoxia with supplemental oxygen at 2 L during stay Atrial fibrillation with rapid ventricular response - Pt in asymptomatic afib during hospitalization; no complaints of palpitations or chest pain - continue metoprolol succinate ER 100 mg p.o. twice daily - continue eliquis 2.5 mg p.o. twice daily Microcytic anemia - Hgb stable during stay in 9-10 range - Iron studies showed low iron, low normal ferritin - No sign of bleeding. iron deficiency likely from ? poor absorption - given 200 mg iron infusion before discharge - may benefit from further iron therapy (either infusion or PO) Dispo: [facility] Diet: heart healthy, low potassium DVT Ppx: eliquis 2.5 mg p.o. twice daily Total Time Total Time Spent Total Time Spent (In Minutes): as per attending attestation Discharge Plan Discharge Items Patient Disposition: Transfer Inpatient Rehab Fac Reason For Visit: CHESTER, HYPERKALEMIA, ELEVATED LACTATE Discharge Diagnosis: CHESTER in the setting of CKD, hyperkalemia Activity: Per Instructions section Non-emergency contact: Primary Care Provider Call non-emergency contact if: you have any medication questions and your symptoms worsen Follow-up/Referrals: Juan Topete MD [Physician] - (f/u in 6 months) [facility] MICHAEL [Primary Care Provider] - Diet: Carb Consistent or DM2, Heart Healthy and Low Potassium (2gm) Addtl Attending Provider Instructions: Pt is a 81 yo female with PMH of anxiety, ARF w/ hypoxia, afib, CKD, COPD, DM, HLD, HTN, and PAD presenting to the hospital d/t her "legs seeping." Acute kidney injury superimposed on CKD - Admission BUN 70 and Cr 3.63, CHESTER, etiology includes diarrhea vs. use of 40 mg Lasix daily and Entresto - Held metformin and Entresto while admitted - pt received fluids while admitted while also encouraging PO intake; fluids were held some days d/t concern for volume overload in setting of CHF - Cr upon discharge 3.49, Cr peaked at 4.74 this visit - pt high risk for development of cardiorenal syndrome: recommend repeat BMP q2 days, prioritization of reintroduction of lasix 40 mg before reinitiation of losartan or entresto CHF (congestive heart failure) - BNP was elevated at 3213 likely secondary to CHESTER vs. CHF - Given 1 dose 20 mg Lasix on 08/09, lasix held otherwise - most recent echo showed EF 20-25% - white catheter is in place - 2+ pitting edema in feet bilaterally, lungs CTA bilaterally- pt asymptomatic - Strict I's and O's, follow blood pressures and daily weights - recommend PRN use of lasix until fluid status more stable - recommend goals of care discussion moving forward Acute hyperkalemia - elevated potassium secondary to acute renal failure, treated with insulin, glu cose, and Lokelma x 1 - No ST changes on EKG - K upon discharge 4.7 - continue to monitor Bilateral edema of lower extremity - No evidence of DVT on doppler - Bilateral feet dusky and cold, concerning for peripheral vascular disease - peripheral neuropathy may be considering to pt's perception of lack of sensation - outpatient f/u w/ vascular surgery in 6 mths T2DM (type 2 diabetes mellitus) - Most recent A1c is 6.9% - Held Metformin, Novolog Sliding Scale initiated while admitted - BSG AC at bedtime - continue with diabetic diet - discontinue metformin in light of CHESTER; latest A1c 6.9% w/ goal of <8.0% - may consider switch to different DM medication like an SGLT2 inhibitors Hypertension - continue holding Entresto and Losartan - continue Toprol XL BID - troponin is within normal limits 11.7 COPD (chronic obstructive pulmonary disease) - Patient reports a [id number]-[id number] smoking history. She quit in the - Patient is on fluticasone/vilanterol 200/25 mcg (Breo Ellipta) - pt stable on baseline 2 L NC - Elevated right atrial pressure on Echo - No acute respiratory complaints and no hypoxia with supplemental oxygen during stay Atrial fibrillation with rapid ventricular response - Pt in asymptomatic afib during hospitalization; no complaints of palpitations or chest pain - continue metoprolol succinate ER 100 mg p.o. twice daily - continue eliquis 2.5 mg p.o. twice daily Microcytic anemia - Hgb stable during stay in 9-10 range - Iron studies showed low iron, low normal ferritin - given 200 mg iron infusion before discharge - may benefit from further iron therapy (either infusion or PO) Dispo: inpatient rehab Diet: heart healthy, low potassium DVT Ppx: eliquis 2.5 mg p.o. twice daily Pending Studies at Discharge: No Stand-Alone Forms: My [facility] Skilled Items Patient informed of condition?: Yes DNR: No Discharge Level of Care: Acute rehab Communicable Disease: No Discharge Prognosis: Stable Lines: None Urinary Catheter: Yes Medications and DC Order Prescriptions: New Eliquis 2.5 mg Tablet 2.5 mg PO BID Qty: 60 1RF Continued montelukast 10 mg tablet 10 mg PO DAILY Qty: 90 1RF atorvastatin 40 mg tablet 40 mg PO DAILY Qty: 90 3RF fluoxetine 20 mg capsule 20 mg PO DAILY Qty: 90 3RF fluticasone furoate-vilanterol 200-25 mcg/dose blister with device 1 inh INHALATION DAILY Qty: 90 3RF omeprazole 20 mg capsule,delayed release(DR/EC) 20 mg PO DAILY Qty: 90 3RF metoprolol succinate 100 mg tablet extended release 24 hr 100 mg PO Q12H Qty: 180 3RF docusate sodium [Colace] 100 mg Capsule 100 mg PO DAILY zafirlukast 10 mg tablet 10 mg PO BID cyanocobalamin (vitamin B-12) 500 mcg Tablet 1,000 mcg PO QAM Qty: 30 0RF Discontinued furosemide [Lasix] 40 mg tablet 40 mg PO DAILY Qty: 90 3RF metformin 500 mg tablet 500 mg PO BID Qty: 180 3RF Entresto 24-26 mg Tablet 1 tab PO BID losartan 25 mg tablet 25 mg PO DAILY Eliquis 5 mg tablet 2.5 mg PO BID Discharge Orders: Discharge Order (Routine); Ordered 08/16/22 Ordered By: Yeni Ortiz Admission Data Admit Date/Time: 08/08/22 10:36 Attending Provider: Lexie Vazquez Admit Provider: Easton Nicholas Primary [facility] Other Providers: Easton Nicholas ; Mickey Davis ; [place] ; Sudheer Valentino Eugene J Supervising Physician Co-Signing Physician Notes Resident Physician Supervision Note: I independently interviewed and examined the patient and verified the choi history and physical, reviewed labs and image studies and agree with resident findings and care plan. Resident Activity Tracking Resident Involvement: Resident Care Provided Care Provided: Adult Hospital Medicine
== END 2022-08-16 14:09 | DRG 683 ==
LOC: ED 04:47 → EDINP 10:36 → SUATTDRO 10:36 → EDINP 15:20 → 4W 15:59